=== PATIENT | female | born 1995 | race Caucasian/White ===

== ENCOUNTER → 2017-10-31 10:22 | Outpatient (CLI) | payer BC, SELFPAY ==
--- NOTE | 2017-10-31 10:28 | US_ITS ---
STUDY: ULTRASOUND BREAST - LEFT REASON FOR EXAM: Female, 21 years old. Palpable lump left breast. TECHNIQUE: Axial and longitudinal images of the LEFT breast were performed with a high resolution ultrasound transducer. COMPARISON: None. FINDINGS: LEFT Breast: The medial aspect of the left breast was examined by ultrasound. There is homogeneous fibroglandular tissue. No solid or cystic mass lesion is seen. US/Breast Limited Unilateral IMPRESSION: Unremarkable sonographic examination of the medial aspect of the left breast. ASSESSMENT CATEGORY: BIRADS Category 1: Negative. A letter regarding these results will be sent to the patient by the facility within 30 days. Electronically Signed: Boris Sierra MD at 14:09 EDT Tel [phone], Service support ,
--- NOTE | 2017-10-31 11:26 | BI_ITS ---
MAMMOGRAPHY - BILATERAL DIAGNOSTIC REASON FOR EXAM: Female, 21 years old. One-week history of left breast lump. PERTINENT HISTORY: Non-contributory. TECHNIQUE: Digital bilateral breast basim (3D mammographic acquisition) in the CC and MLO projections. 2-D mediolateral oblique (MLO) and craniocaudad (CC) views of both breasts were obtained. CAD: Full Field Digital Mammography with Computer Added Detection was performed. COMPARISON: Comparison is made with prior sonogram done earlier. FINDINGS: Breast Composition: There are scattered areas of fibroglandular density. There are no dominant masses or suspicious calcifications. No other significant abnormalities are identified. BI/DIAG MAMM W/CAD, BILAT IMPRESSION: Negative diagnostic mammogram. Yearly followup mammogram recommended. (A) ASSESSMENT CATEGORY: BIRADS Category 1: Negative. A letter regarding these results will be sent to the patient by the facility within 30 days. Approximately 10% of breast cancers are not detected by mammography. A normal mammogram should not delay biopsy of a clinically suspicious abnormality. Electronically Signed: Boris Sierra MD at 14:13 EDT Tel [phone], Service support ,
== END ==
LOC: US 10:25 → OPUS 10:27
PROVIDERS: Family Provider Internal Medicine; PCP Internal Medicine; Visit Provider Obstetrics & Gynecology
DX: N60.82 Other benign mammary dysplasias of left breast (principal)
CPT/HCPCS: 76642; 77062; 77066; G0279

== ENCOUNTER 2017-12-21 09:51 | Emergency (ER) | payer BC, SELFPAY ==
[2017-12-21 09:52] VITALS: BP 153/100; PULSE 108; RESP 18; TEMP 36.6; O2SAT 98; BMI 36.7
--- NOTE | 2017-12-21 10:33 | RAD_ITS ---
RAD/Foot min 3 Views IMPRESSION: Normal x-ray examination of the foot. Electronically Signed: Dm José MD at 11:21 EDT Tel , Service support ,
--- NOTE | 2017-12-21 11:30 | ED.VISSUMM ---
- ER Visit Summary Date of Service: 12/21/17 Chief Complaint: Left foot pain History of Present Illness: The patient is a 22 F who stumbled over her left foot while walking her dog yesterday. She has dorsal tenderness of her foot. She has no other injuries no ankle pain. Physical Examination: Otherwise unremarkable exam no ankle tenderness she has slight edema and tenderness over the dorsum of the foot. No proximal fifth metatarsal pain. Neurovascularly intact. Test Results: [X-ray of the foot is negative for fracture] Emergency Department Course and Treatment: [Patient will be discharged with reassurance. She wishes to take [id number] analgesia if she needs it, at this time she does not want.] Discharge stable condition Impression: [Left foot contusion] This note was generated with [employer] dictation software. It may contain incorrect words, spelling, and punctuation that were not noted in review of the chart prior to signing ED Disposition - Plan for ED Patient: Disposition: Home or Assisted Living Chief Complaint: Lower Extremity Injury Instructions: ED Contusion Foot Referrals: Suzy Jackson, [Primary Care Provider] - 1 Week if not improving
[2017-12-21 11:40] VITALS: BP 142/83; PULSE 88; RESP 16; O2SAT 98
== END 2017-12-21 11:43 | disposition home or self-care (01) ==
PROVIDERS: Emergency Provider Emergency Medicine; Family Provider Internal Medicine; PCP Internal Medicine
DX: S90.32XA Contusion of left foot, initial encounter (principal); W22.8XXA Striking against or struck by other objects, initial encounter; Y93.K1 Activity, walking an animal; Y92.9 Unspecified place or not applicable
CPT/HCPCS: 73630; 99282

== ENCOUNTER → 2018-01-14 13:14 | Outpatient (CLI) | payer BC, SELFPAY ==
[2018-01-21 11:59] LABS: HPV Reflexed? NOT INDICATED
== END ==
PROVIDERS: Family Provider Internal Medicine; PCP Internal Medicine; Visit Provider Obstetrics & Gynecology
DX: Z12.4 Encounter for screening for malignant neoplasm of cervix (principal)
CPT/HCPCS: 88175; G0145

== ENCOUNTER → 2018-05-20 12:57 | Outpatient (CLI) | payer BC, SELFPAY ==
[2018-05-20 13:11] LABS: Absolute Lymphocyte Count 1.31 X10^3/ul (0.83-4.51); Absolute Neutrophil Count 11.9 X10^3/uL (2.0-7.7); Basophil# 0.01 X10^3/uL; Basophil% 0.1 % (0-1); Hematocrit 42.1 % (37-47); Hemoglobin 13.3 g/dl (12.0-15.0); Lymphocyte # 1.31 X10^3/ul (4.0); Lymphocyte % 9.5 % (19-41); Mean Corp Hgb Conc 31.6 g/gl (32-36); Mean Corpuscular Hgb 25.8 pg (27.0-32.0); Mean Corpuscular Volume 81.7 fL (81-99); Mean Platelet Vol. 10.6 fl (6.2-12.0); Monocyte# 0.59 X10^3/uL; Monocyte% 4.3 % (0-10); Neutrophil # 11.86 X10^3/uL (2.7-7.7); Neutrophil % 85.8 % (47-70); Platelet Count 311 K/mm3 (150-450); RBC Distribution Width CV 13.7 % (11.6-14.6); RBC Distribution Width SD 41.1 fl (35.1-43.9); Red Blood Count 5.15 M/mm3 (4.2-5.4); White Blood Count 13.8 K/mm3 (4.4-11.0)
[2018-05-20 13:12] LABS: POSITIVE COUNT NO; POSITIVE DIFFERENTIAL NO; POSITIVE MORPHOLOGY NO
[2018-05-20 13:19] LABS: D-Dimer Quantitative (DVT/PE) < 0.27 FEU/ug/m (0.27-0.49)
[2018-05-20 13:53] LABS: ALB/GLOB Ratio 0.9 RATIO (0.9-2.4); AST(SGOT) 6 U/L (15-37); Alanine Aminotransfer ALT/SGPT 17 U/L (13-56); Albumin, Serum 3.7 g/dL (3.2-5.0); Alkaline Phosphatase 123 U/L (45-117); Anion Gap 11 (5-15); BUN 7 mg/dL (7-18); BUN/Creat Ratio 8.4 RATIO (10-20); Calcium,Total 9.3 mg/dL (8.5-10.1); Chloride 107 mmol/L (98-107); Creatinine, Serum 0.83 mg/dL (0.55-1.02); EST Glomerular Filtration Rate 89 mL/min (>60); Est Glom Filt Rate - Afr Amer 108 mL/min (>60); Globulin 4.1 g/dL (2.2-4.2); Glucose 118 mg/dL (74-106); Potassium 4.7 mmol/L (3.5-5.1); Protein, Total 7.8 g/dL (6.4-8.2); Sodium Level 139 mmol/L (136-145); Thyroid Stim Hormone (TSH) 0.41 uIU/mL (0.358-3.74)
== END ==
PROVIDERS: Family Provider Internal Medicine; PCP Internal Medicine; Visit Provider Internal Medicine
DX: R00.0 Tachycardia, unspecified (principal); R06.02 Shortness of breath
CPT/HCPCS: 80053; 84443; 85025; 85379

== ENCOUNTER → 2018-05-20 19:10 | Outpatient (CLI) | payer BC, SELFPAY ==
--- NOTE | 2018-05-20 19:15 | CT_ITS ---
STUDY: CTA CHEST REASON FOR EXAM: Female, 22 years old. Short of breath and tachycardia RADIATION DOSAGE (If Supplied By Facility): CTDIvol = ( 13.20 ) mGy, DLP = ( 716.30 ) mGycm TECHNIQUE: The examination was performed with the intravenous administration of 100ML ml of Isovue 370 contrast material. Post-processing of the angiographic images was performed, with multiplanar reformation and 3D reconstruction. Individualized dose optimization techniques were used for this CT. COMPARISON: None. FINDINGS: Normal enhancement of the main pulmonary artery and right and left pulmonary arteries. Normal enhancement of the bilateral peripheral pulmonary arteries. There is no demonstrated pulmonary embolism. Normal thoracic aorta and visualized great vessels. There is no demonstrated aortic dissection. Normal heart and pericardium. Normal mediastinum. Normal hilar regions. Normal visualized trachea and bronchi. The lungs are well expanded. Normal pulmonary parenchyma. Normal pleura. Normal chest wall structures. Normal osseous structures. Normal visualized upper abdomen. CT/CTA Chest W/WO Contrast IMPRESSION: Normal CTA chest examination, without a demonstrated pulmonary embolism or arterial dissection. Electronically Signed: Caden Marroquin MD at 19:39 EST , Service support ,
== END ==
PROVIDERS: Family Provider Internal Medicine; PCP Internal Medicine; Referring Provider Internal Medicine; Visit Provider Internal Medicine
DX: R06.02 Shortness of breath (principal); R00.0 Tachycardia, unspecified
CPT/HCPCS: 71275; Q9967

== ENCOUNTER → 2020-06-02 09:26 | Outpatient (CLI) | payer BC, SELFPAY ==
--- NOTE | 2020-06-02 09:29 | US_ITS ---
STUDY: ABDOMINAL ULTRASOUND - RIGHT UPPER QUADRANT REASON FOR VISIT: Female, 24 years old rug pain with touch and meals TECHNIQUE: Ultrasound evaluation of the right upper quadrant was performed with real-time and static ricketts-scale imaging. TECHNICAL QUALITY: Adequate. COMPARISON: None. FINDINGS: Liver: The liver measures 15.8 cm. There is normal echogenicity of the liver. The bile ducts are within normal limits. There is hepatic color flow. The direction of portal flow is hepatopetal. There is no demonstrated mass lesion. Gallbladder: Normal distended gallbladder. The gallbladder wall measures 2.5 mm. There is a negative sonographic Pritchard''s sign. There is no pericholecystic fluid. There are no gallstones. Common Bile Duct (C.B.D.): The common bile duct measures 2.9 mm. Pancreas: Normal size of the head, body and tail of the pancreas. There is normal echogenicity of the pancreas. There is no demonstrated pancreatic mass or cyst. Right Kidney: Normal size of the right kidney. The right kidney measures 11.8 cm x 5 cm x 5.1 cm. Normal renal cortex. The right cortex measures 1.5 cm. There is no demonstrated renal mass or cyst. There is no right hydronephrosis. US/Gallbladder IMPRESSION: Normal right upper quadrant ultrasound examination. Electronically Signed: Boris Sierra MD at 10:41 EST , Service support ,
[2020-06-02 10:45] LABS: Absolute Lymphocyte Count 2.61 X10^3/uL (0.83-4.51); Absolute Neutrophil Count 6.3 X10^3/uL (2.0-7.7); Basophil# 0.05 X10^3/uL; Basophil% 0.5 % (0-1); Eosinophil# 0.64 X10^3/uL; Eosinophils% 6.2 % (0-5); Hematocrit 39.9 % (37-47); Lymphocyte # 2.61 X10^3/ul (4.0); Lymphocyte % 25.3 % (19-41); Mean Corp Hgb Conc 30.1 g/dL (32-36); Mean Corpuscular Volume 79.8 fL (81-99); Mean Platelet Vol. 10.8 fl (6.2-12.0); Monocyte# 0.65 X10^3/uL; Monocyte% 6.3 % (0-10); NRBC Flagged by Analyzer 0 % (0-5); Neutrophil # 6.33 X10^3/uL (2.7-7.7); Neutrophil % 61.4 % (47-70); Platelet Count 341 K/mm3 (150-450); RBC Distribution Width CV 14.2 % (11.6-14.6); RBC Distribution Width SD 41.4 fl (35.1-43.9); White Blood Count 10.3 K/mm3 (4.4-11.0)
[2020-06-02 10:53] LABS: hCG Titer Quant., Serum < 1 mIU/mL (1-3)
[2020-06-02 10:56] LABS: ALB/GLOB Ratio 1.1 RATIO (0.9-2.4); AST(SGOT) 10 U/L (15-37); Alanine Aminotransfer ALT/SGPT 16 U/L (13-56); Albumin, Serum 3.6 g/dL (3.2-5.0); Alkaline Phosphatase 151 U/L (45-117); Amylase 34 U/L (25-115); Anion Gap 5 (5-15); BUN 6 mg/dL (7-18); BUN/Creat Ratio 9.1 RATIO (10-20); Calcium,Total 8.8 mg/dL (8.5-10.1); Chloride 106 mmol/L (98-107); Creatinine, Serum 0.66 mg/dL (0.55-1.02); EST Glomerular Filtration Rate 115 mL/min (>60); Est Glom Filt Rate - Afr Amer 139 mL/min (>60); Globulin 3.4 g/dL (2.2-4.2); Glucose 91 mg/dL (74-106); Lipase 88 U/L (73-393); Potassium 4.2 mmol/L (3.5-5.1); Sodium Level 138 mmol/L (136-145)
== END ==
PROVIDERS: PCP Internal Medicine; Referring Provider Internal Medicine; Visit Provider Internal Medicine
DX: R10.11 Right upper quadrant pain (principal); R11.0 Nausea
CPT/HCPCS: 76705; 80053; 82150; 83690; 84702; 85025

== ENCOUNTER → 2020-06-12 12:33 | Outpatient (CLI) | payer BC, SELFPAY ==
--- NOTE | 2020-06-12 12:35 | NM_ITS ---
CLINICAL: 24-year-old female with reported history of right upper quadrant abdominal pain and nausea. RADIONUCLIDE HEPATOBILIARY SCINTIGRAPHY COMPARISON: Abdominal ultrasound report 06/02/2020 FINDINGS: Following the intravenous administration of 5.2 mCi of 99m Tc Mebrofenin, hepatobiliary images reveal: 1. Relatively prompt and homogeneous radiopharmaceutical concentration is noted by a normal sized liver. No parenchymal defects are identified. 2. Gallbladder activity is identified at 10 minutes post radiopharmaceutical administration. 3. Small intestinal tract is observed at 45 minutes following tracer injection. 4. Washout of the radiopharmaceutical by the hepatic parenchyma appears qualitatively normal. Cholecystokinin (0.02 ug/kg) was administered intravenously over a 30-minute period. The post CCK gallbladder ejection fraction calculated at 20 minutes following Cholecystokinin administration was noted to be 95.0 % (normal greater than 35%). During 30 minutes of post CCK imaging, there is no scintigraphic evidence of reflux of the radiotracer into the common hepatic duct or significant refilling of the gallbladder. WA/Hepatobilliary Img w/Pharm Int IMPRESSION: 1. NORMAL 99m Tc Mebrofenin hepatobiliary imaging examination with Cholecystokinin. A. A gallbladder ejection fraction calculated to be greater than 35% following the administration of Cholecystokinin makes the probability of functional hepatobiliary disease (gallbladder and/or sphincter of Oddi dyskinesia) and/or organic hepatobiliary disease (chronic acalculous cholecystitis and/or cystic duct syndrome) to be low. (Brodie Huston et al, Journal of Nuclear Medicine 32:1695, 1991). Electronically Signed: Jesus Willard DO at 22:13 EST Tel , Service support ,
== END ==
PROVIDERS: PCP Internal Medicine; Referring Provider Internal Medicine; Visit Provider Internal Medicine
DX: R10.11 Right upper quadrant pain (principal)
CPT/HCPCS: 78227; A9537; J2805

== ENCOUNTER → 2021-01-15 16:03 | Outpatient (CLI) | payer OTHER, SELFPAY ==
--- NOTE | 2021-01-15 16:07 | RAD_ITS ---
STUDY: X-RAY CHEST REASON FOR EXAM: Female, 25 years old. Shortness of breath. TECHNIQUE: PA and lateral views of the chest. COMPARISON: 05/06/2017. FINDINGS: The lungs are clear and expanded. There is no demonstrated pleural abnormality. Normal size heart. Normal mediastinum and billy. Normal visualized pulmonary arteries. Normal visualized aortic arch and descending thoracic aorta. Normal visualized thoracic spine. Normal visualized ribs, clavicles, and shoulders. There is no demonstrated abnormality of the visualized soft tissue structures of the upper abdomen. RAD/Chest PA and Lateral IMPRESSION: No acute cardiopulmonary disease or interval change. Electronically Signed: Say Taveras DO at 16:21 EDT Tel [phone], Service support ,
== END ==
PROVIDERS: PCP Internal Medicine; Referring Provider Internal Medicine; Visit Provider Internal Medicine
DX: R06.02 Shortness of breath (principal)
CPT/HCPCS: 71046

== ENCOUNTER → 2021-08-30 | Outpatient (CLI) | payer OTHER, SELFPAY ==
[2021-09-05 20:18] LABS: HPV Reflexed? NOT INDICATED
== END | disposition home or self-care (01) ==
PROVIDERS: PCP Internal Medicine; Visit Provider Obstetrics & Gynecology
DX: Z12.4 Encounter for screening for malignant neoplasm of cervix (principal)
CPT/HCPCS: 88175; G0145

== ENCOUNTER → 2021-09-05 | Outpatient (CLI) | payer OTHER, SELFPAY ==
--- NOTE | 2021-09-05 08:16 | US_ITS ---
STUDY: ULTRASOUND OF THE FEMALE PELVIS - COMPLETE REASON FOR EXAM: Female, 25 years old. Pelvic pain -- PAINFUL PERIODS X 10 YEARS LMP: 08/28/2021. TECHNIQUE: Transabdominal and Transvaginal TECHNICAL QUALITY: Adequate. COMPARISON: Comparison is made with prior study dated 12/14/2016. FINDINGS: The uterus is anteverted and is in a midline position. The uterus measures 7.5 cm x 5.3 cm x 4 cm. There is a Nabothian cyst of the cervix. The endometrium measures 5 mm in thickness, and is hyperechoic. There is no demonstrated endometrial mass. 2 uterine fibroids are seen. The larger fibroid measures 2 cm x 2 cm x 1.5 cm. I.U.D. - The patient does not have an I.U.D. The right ovary is visualized. The right ovary measures 3.1 cm x 4.2 cm x 1.9 cm. There is no right ovarian cyst or ovarian mass. There is no visualized right adnexal mass or complex lesion. There is normal arterial and normal venous vascularity. The left ovary is visualized. The left ovary measures 4.1 cm x 4.5 cm x 1.6 cm. A dominant follicle is seen within the left ovary measuring 1.5 cm x 1.3 cm x 1.2 cm. There is no visualized left adnexal mass or complex lesion. There is normal arterial and normal venous vascularity. There is no fluid in the cul-de-sac. The pre void volume of the bladder was 780 ml. US/Pelvic (Non ) IMPRESSION: Fibroid uterus. Dominant follicle in the left ovary measuring 1.57 x 1.3 cm x 1.2 cm. Electronically Signed: Boris Sierra MD at 10:29 EDT ,
--- NOTE | 2021-09-05 08:16 | US_ITS ---
STUDY: ULTRASOUND OF THE FEMALE PELVIS - COMPLETE REASON FOR EXAM: Female, 25 years old. Pelvic pain -- PAINFUL PERIODS X 10 YEARS LMP: 08/28/2021. TECHNIQUE: Transabdominal and Transvaginal TECHNICAL QUALITY: Adequate. COMPARISON: Comparison is made with prior study dated 12/14/2016. FINDINGS: The uterus is anteverted and is in a midline position. The uterus measures 7.5 cm x 5.3 cm x 4 cm. There is a Nabothian cyst of the cervix. The endometrium measures 5 mm in thickness, and is hyperechoic. There is no demonstrated endometrial mass. 2 uterine fibroids are seen. The larger fibroid measures 2 cm x 2 cm x 1.5 cm. I.U.D. - The patient does not have an I.U.D. The right ovary is visualized. The right ovary measures 3.1 cm x 4.2 cm x 1.9 cm. There is no right ovarian cyst or ovarian mass. There is no visualized right adnexal mass or complex lesion. There is normal arterial and normal venous vascularity. The left ovary is visualized. The left ovary measures 4.1 cm x 4.5 cm x 1.6 cm. A dominant follicle is seen within the left ovary measuring 1.5 cm x 1.3 cm x 1.2 cm. There is no visualized left adnexal mass or complex lesion. There is normal arterial and normal venous vascularity. There is no fluid in the cul-de-sac. The pre void volume of the bladder was 780 ml. US/Transvaginal Non- IMPRESSION: Fibroid uterus. Dominant follicle in the left ovary measuring 1.57 x 1.3 cm x 1.2 cm. Electronically Signed: Boris Sierra MD at 10:29 EDT ,
== END | disposition home or self-care (01) ==
PROVIDERS: PCP Internal Medicine; Visit Provider Obstetrics & Gynecology
DX: R10.2 Pelvic and perineal pain (principal); Z87.42 Personal history of other diseases of the female genital tract
CPT/HCPCS: 76830; 76856; 88175; G0145

== ENCOUNTER → 2022-01-28 | Outpatient (CLI) | payer OTHER, SELFPAY ==
[2022-01-28 11:25] LABS: hCG Titer Quant., Serum 1042 mIU/mL (1-3)
== END | disposition home or self-care (01) ==
LOC: PAVLAB 09:51
PROVIDERS: PCP Internal Medicine; Referring Provider Registered Nurse; Visit Provider Registered Nurse
DX: N92.0 Excessive and frequent menstruation with regular cycle (principal)
CPT/HCPCS: 36415; 84702; 86850; 86900; 86901

== ENCOUNTER → 2022-01-30 | Outpatient (CLI) | payer OTHER, SELFPAY ==
[2022-01-30 09:01] LABS: hCG Titer Quant., Serum 1968 mIU/mL (1-3)
== END | disposition home or self-care (01) ==
LOC: LAB 07:03
PROVIDERS: Registered Nurse; PCP Internal Medicine; Visit Provider Obstetrics & Gynecology
DX: N92.0 Excessive and frequent menstruation with regular cycle (principal)
CPT/HCPCS: 36415; 84702

== ENCOUNTER → 2022-03-04 | Outpatient (CLI) | payer OTHER, SELFPAY ==
[2022-03-04 16:55] LABS: Amphetamine Urine VISTA NEGATIVE (<1000 ng/mL); Barbiturate Urine VISTA NEGATIVE (< 200 ng/mL); Benzodiazepine Urine VISTA NEGATIVE (< 200 ng/mL); Cocaine Urine VISTA NEGATIVE (< 300 ng/mL); Ecstacy Urine VISTA NEGATIVE (< 500 ng/mL); Methadone Urine VISTA NEGATIVE (< 300 ng/mL); PCP Urine VISTA NEGATIVE (< 25 ng/mL); THC Urine VISTA NEGATIVE (< 50 ng/mL); Vista UDS pH Range 5
[2022-03-06 22:07] LABS: Chlamydia By Nucleic Acid AMP Negative (Negative)
[2022-03-07 15:48] LABS: Gonococcus By Nucleic Acid AMP Negative (Negative)
[2022-03-11 17:37] LABS: HPV Reflexed? NOT INDICATED
== END | disposition home or self-care (01) ==
PROVIDERS: PCP Internal Medicine; Visit Provider Obstetrics & Gynecology
DX: O99.210 Obesity complicating pregnancy, unspecified trimester (principal); E66.9 Obesity, unspecified
CPT/HCPCS: 80307; 87086; 87088; 87491; 87591; 88175; G0145

== ENCOUNTER → 2022-04-04 | Outpatient (CLI) | payer OTHER, SELFPAY ==
[2022-04-04 07:59] LABS: Absolute Lymphocyte Count 1.79 X10^3/uL (0.83-4.51); Absolute Neutrophil Count 6.2 X10^3/uL (2.0-7.7); Basophil# 0.02 X10^3/uL; Basophil% 0.2 % (0-1); Eosinophil# 0.34 X10^3/uL; Eosinophils% 3.9 % (0-5); Hematocrit 35.3 % (37-47); Hemoglobin 11.3 g/dL (12.0-15.0); Lymphocyte # 1.79 X10^3/ul (0.83-4.51); Lymphocyte % 20.4 % (19-41); Mean Corpuscular Hgb 26.4 pg (27.0-32.0); Mean Corpuscular Volume 82.5 fL (81-99); Mean Platelet Vol. 10.3 fl (6.2-12.0); Monocyte% 4.6 % (0-10); NRBC Flagged by Analyzer 0 % (0-5); Neutrophil # 6.21 X10^3/uL (2.7-7.7); Neutrophil % 70.7 % (47-70); Platelet Count 218 K/mm3 (150-450); RBC Distribution Width CV 13.8 % (11.6-14.6); RBC Distribution Width SD 40.9 fl (35.1-43.9); Red Blood Count 4.28 M/mm3 (4.2-5.4); White Blood Count 8.8 K/mm3 (4.4-11.0)
[2022-04-04 08:18] LABS: Glucose Challenge Gest 1H 50g 164 mg/dL (70-140)
[2022-04-04 09:02] LABS: HIV - WCH Non-Reactive (Nonreactive); Hepatitis B Surface Antigen Non-Reactive (Nonreactive); Hepatitis C Antibody Non-Reactive (Nonreactive); Rubella IgG Reactive (Nonreactive); Syphilis Antibodies Non-reactive
[2022-04-04 13:50] LABS: NATERA MAILED SPECIMEN
== END | disposition home or self-care (01) ==
PROVIDERS: PCP Internal Medicine; Referring Provider Obstetrics & Gynecology; Visit Provider Obstetrics & Gynecology
DX: Z31.430 Encounter of female for testing for genetic disease carrier status for procreative management (principal); Z34.82 Encounter for supervision of other normal pregnancy, second trimester
CPT/HCPCS: 36415; 82950; 85025; 86703; 86762; 86780; 86803; 86850; 86900; 86901; 87340

== ENCOUNTER → 2022-04-08 | Outpatient (CLI) | payer OTHER, SELFPAY ==
[2022-04-08 08:00] LABS: Glucose GTT-Gestation. Fasting 91 mg/dL (<105)
[2022-04-08 08:39] LABS: Glucose GTT-Gestational 1 Hr 143 mg/dL (<190)
[2022-04-08 09:47] LABS: Glucose GTT-Gestational 2 Hr 130 mg/dL (<165)
[2022-04-08 10:48] LABS: Glucose GTT-Gestational 3 Hr 104 L (<145)
== END | disposition home or self-care (01) ==
LOC: LAB 06:51
PROVIDERS: PCP Internal Medicine; Referring Provider Obstetrics & Gynecology; Visit Provider Obstetrics & Gynecology
DX: Z13.1 Encounter for screening for diabetes mellitus (principal)
CPT/HCPCS: 36415; 82951; 82952

== ENCOUNTER → 2022-05-09 | Outpatient (CLI) | payer OTHER, SELFPAY ==
--- NOTE | 2022-05-09 07:50 | US_ITS ---
STUDY: SECOND AND THIRD TRIMESTER OBSTETRICAL ULTRASOUND REASON FOR EXAM: Female, 26 years old Anatomy US LMP: 12/27/2021 TECHNIQUE: Transabdominal and Transvaginal TECHNICAL QUALITY: Adequate. PRIOR ULTRASOUND: None. FINDINGS: There is a single intrauterine fetus. The fetus is in an transverse lie with the head on the maternal left side. There is demonstrated cardiac activity with a heart rate of 155 bpm. There is a normal amniotic fluid volume. The largest amniotic fluid pocket measures 3.1 cm x 8.5 cm. The amniotic fluid index (MEAGAN) is within normal limits. The placenta is fundal in location. There are Grade 1 placental changes. The cervix measures 6 cm in length. The bilateral adnexal regions are normal. BIOMETRY: BPD: 4.5 cm: 19 weeks, 4 days HC: 16.3 cm: 19 weeks, 0 days AC: 13.6 on: 19 weeks, 0 days FL: 2.9 cm: 19 weeks, 0 days CI: 79% FL/BPD: 65% FL/HC: FL/AC: 22% HC/AC: 1.2 age by current US: 19 weeks, 2 days. MIKE by current US: 10/01/2022. Estimated weight: 274 grams, +/- 41 grams, 52 %. Age by LMP: 19 weeks, 0 days. MIKE by LMP: 10/03/2022. ANATOMY: Gender: Male Cranium: Normal lateral ventricles. Normal choroid plexus. Normal cerebellum. Normal cisterna magna. Normal face, nose and lips. Chest: Normal 4-chamber heart. Abdomen/Pelvis: Normal diaphragm. Normal stomach. Normal abdominal wall. Normal cord insertion. Normal 3 vessel cord. Normal kidneys. Normal bladder. Spine: Normal cervical spine. Normal thoracic spine. Normal lumbar spine. Normal sacrum. Extremities: Normal bilateral upper extremities. Normal bilateral lower extremities. IMPRESSION: Single live intrauterine gestation with a mean gestational age of 19 weeks and 2 days. Electronically Signed: Boris Sierra MD at 11:00 EST , STUDY: FIRST TRIMESTER OBSTETRICAL ULTRASOUND REASON FOR EXAM: Female, 26 years old . Cervical length. LMP: 12/27/2021 TECHNIQUE: Transvaginal TECHNICAL QUALITY: Adequate. PRIOR ULTRASOUND: None. FINDINGS: The cervical length measures 6 cm. US/OB Anatomy Scan IMPRESSION: Cervical length measures 6 cm. Electronically Signed: Boris Sierra MD at 11:00 EST ,
== END | disposition home or self-care (01) ==
LOC: OPUS 07:48
PROVIDERS: PCP Internal Medicine; Referring Provider Nurse Practitioner Women's Health; Visit Provider Nurse Practitioner Women's Health
DX: Z34.92 Encounter for supervision of normal pregnancy, unspecified, second trimester (principal); Z3A.19 19 weeks gestation of pregnancy
CPT/HCPCS: 76805; 76817

== ENCOUNTER → 2022-07-05 | Outpatient (CLI) | payer OTHER, SELFPAY ==
[2022-07-05 08:09] LABS: Absolute Lymphocyte Count 1.83 X10^3/uL (0.83-4.51); Absolute Neutrophil Count 7.1 X10^3/uL (2.0-7.7); Basophil# 0.03 X10^3/uL; Basophil% 0.3 % (0-1); Eosinophil# 0.43 X10^3/uL; Eosinophils% 4.4 % (0-5); Hematocrit 32.6 % (37-47); Hemoglobin 10.5 g/dL (12.0-15.0); Lymphocyte # 1.83 X10^3/ul (0.83-4.51); Lymphocyte % 18.6 % (19-41); Mean Corp Hgb Conc 32.2 g/dL (32-36); Mean Corpuscular Hgb 27.3 pg (27.0-32.0); Mean Corpuscular Volume 84.7 fL (81-99); Mean Platelet Vol. 11.2 fl (6.2-12.0); Monocyte# 0.42 X10^3/uL; Monocyte% 4.3 % (0-10); NRBC Flagged by Analyzer 0 % (0-5); Neutrophil # 7.08 X10^3/uL (2.7-7.7); Neutrophil % 71.9 % (47-70); Platelet Count 224 K/mm3 (150-450); RBC Distribution Width CV 13.4 % (11.6-14.6); RBC Distribution Width SD 41.4 fl (35.1-43.9); Red Blood Count 3.85 M/mm3 (4.2-5.4); White Blood Count 9.8 K/mm3 (4.4-11.0)
[2022-07-05 08:21] LABS: Glucose Challenge Gest 1H 50g 176 mg/dL (70-140)
[2022-07-05 08:55] LABS: HIV - WCH Non-Reactive (Nonreactive); Syphilis Antibodies Non-reactive
== END | disposition home or self-care (01) ==
LOC: LAB 07:31
PROVIDERS: PCP Internal Medicine; Referring Provider Obstetrics & Gynecology; Visit Provider Obstetrics & Gynecology
DX: O09.90 Supervision of high risk pregnancy, unspecified, unspecified trimester (principal)
CPT/HCPCS: 36415; 82950; 85025; 86703; 86780

== ENCOUNTER 2022-07-23 15:00 | Outpatient (CLI) | payer OTHER, SELFPAY ==
[2022-07-23] VITALS (12 sets, daily range): BP systolic 134–183; BP diastolic 72–103; PULSE 71–84; TEMP 36.5; O2SAT 99; BMI 41.8
[2022-07-23 15:53] LABS: Hematocrit 31.9 % (37-47); Hemoglobin 10.4 g/dL (12.0-15.0); Mean Corp Hgb Conc 32.6 g/dL (32-36); Mean Corpuscular Hgb 27.2 pg (27.0-32.0); Mean Corpuscular Volume 83.5 fL (81-99); Mean Platelet Vol. 11.7 fl (6.2-12.0); Platelet Count 220 K/mm3 (150-450); RBC Distribution Width CV 14.1 % (11.6-14.6); RBC Distribution Width SD 41.8 fl (35.1-43.9); Red Blood Count 3.82 M/mm3 (4.2-5.4); White Blood Count 10.2 K/mm3 (4.4-11.0)
[2022-07-23 16:08] LABS: AST(SGOT) 12 U/L (15-37); Alanine Aminotransfer ALT/SGPT 12 U/L (13-56); Creatinine, Serum 0.52 mg/dL (0.55-1.02); EST Glomerular Filtration Rate 147 mL/min (>60); Est Glom Filt Rate - Afr Amer 178 mL/min (>60); Estimated Creatinine Clearance 139.09 ml/min; Uric Acid 3.3 mg/dL (2.6-6.0)
--- NOTE | 2022-07-23 16:39 | OB.TRI.PN_ITS ---
Progress Notes Date of Service: 07/23/22 Progress Note: Patient presents for triage evaluation secondary to elevated blood pressure FHT: 140 Moderate variability reactive no decelerations category I tracing [place]: no regular Contractions Assessment and plan: ghtn Reactive NST labs WNL growth US ordered plan home bp monitoring, reassuring maternal and status patient discharged to home to follow-up in office. See problem list details for additional plan information. Laboratory Studies: Laboratory Tests 07/23/22 07/23/22 Range/Units 15:35 15:35 WBC 10.2 (4.4-11.0) K/mm3 RBC 3.82 L (4.2-5.4) M/mm3 Hgb 10.4 L (12.0-15.0) g/dL Hct 31.9 L (37-47) % MCV 83.5 (81-99) fL MCH 27.2 (27.0-32.0) pg MCHC 32.6 (32-36) g/dL RDW Std Deviation 41.8 (35.1-43.9) fl RDW Coeff of Kyler 14.1 (11.6-14.6) % Plt Count 220 (150-450) K/mm3 MPV 11.7 (6.2-12.0) fl Creatinine 0.52 L (0.55-1.02) mg/dL Estim Creat Clear Calc 139.09 ml/min Est GFR (MDRD) Af Amer 178 (>60) mL/min Est GFR (MDRD) Non-Af 147 (>60) mL/min Uric Acid 3.3 (2.6-6.0) mg/dL AST 12 L (15-37) U/L ALT 12 L (13-56) U/L Charges/Coding Procedures Urinary/Genital [id number]: [id number] non-stress test Interp Assessment & Plan (1) Gestational hypertension: COMMENT: growth us, steroids 07/23 and 07/24. procardia started. nl labs. plan 2x weekly nsts, weekly yuliana, and weekly labs., home bp monitoring
[2022-07-23 16:40] LABS: Protein, Urine (Random) 9.4 mg/dL (<11.9); Protein:Creat Ratio 193 mg/g CRE (0-200)
--- NOTE | 2022-07-23 16:56 | US_ITS ---
STUDY: SECOND AND THIRD TRIMESTER OBSTETRICAL ULTRASOUND - LIMITED REASON FOR EXAM: Female, 26 years old. Growth. LMP: December 27, 2021 PRIOR ULTRASOUND: May 09, 2022. TECHNIQUE: Transabdominal TECHNICAL QUALITY: Adequate. FINDINGS: There is a single intrauterine fetus. The fetus is in a breech presentation. There is demonstrated cardiac activity with a heart rate of 145 bpm. There is a normal amniotic fluid volume. The largest amniotic fluid pocket measures 4.07 cm. The amniotic fluid index (MEAGAN) is 15.11 cm. The placenta is fundal in location. There are Grade 1 placental changes. The cervix measures 4.1 cm cm in length. BIOMETRY: BPD: 7.63 cm: 30 weeks, 4 days HC: 28.73 cm: 31 weeks, 4 days AC: 27.82 cm: 31 weeks, 6 days FL: 5.38 cm: 28 weeks, 3 days Age by LMP: 30 weeks, 0 days. MIKE by LMP: October 01, 2022. age by prior US: 30 weeks, 0 days. MIKE by prior US: October 01, 2022. age by current US: 30 weeks, 3 days. MIKE by current US: September 28, 2022. Estimated weight: 1627 grams, +/- 244 grams, 63 percentile. US/OB Limited With Biometrics IMPRESSION: 1. Live single intrauterine at 30 weeks, 3 days. MIKE is September 28, 2022. There is adequate interval growth since prior ultrasound. 2. EFW 1627 g. 3. MEAGAN of 15.11 cm. 4. Fundal grade 1 placenta. 5. Breech presentation. Electronically Signed: Say Taveras DO at 19:35 EDT ,
[2022-07-23] MEDS: NIFEdipine 30 MG Tablet PO (17:22)
[2022-07-23] MEDS: Betamethasone/Betamethasone 30 MG/5 ML Vial 12 MG IM (17:23)
== END 2022-07-23 18:04 | disposition home or self-care (01) ==
LOC: WPOUT 15:05 → WP 15:13
PROVIDERS: PCP Internal Medicine; Referring Provider Obstetrics & Gynecology; Visit Provider Obstetrics & Gynecology
DX: O13.9 Gestational [pregnancy-induced] hypertension without significant proteinuria, unspecified trimester (principal); Z3A.00 Weeks of gestation of pregnancy not specified
CPT/HCPCS: 36415; 59025; 59050; 76816; 82565; 82570; 84156; 84450; 84460; 84550; 85027; 99221; G0378; J0702

== ENCOUNTER 2022-07-24 16:50 | Outpatient (CLI) | payer OTHER, SELFPAY ==
[2022-07-24] VITALS (7 sets, daily range): BP systolic 140–156; BP diastolic 71–94; PULSE 72–84
[2022-07-24] MEDS: Betamethasone/Betamethasone 30 MG/5 ML Vial 12 MG IM (18:03)
== END 2022-07-24 19:00 | disposition home or self-care (01) ==
LOC: WPOUT 16:54 → WP 16:55
PROVIDERS: PCP Internal Medicine; Referring Provider Advanced Practice Midwife; Visit Provider Advanced Practice Midwife
DX: O13.9 Gestational [pregnancy-induced] hypertension without significant proteinuria, unspecified trimester (principal); Z3A.00 Weeks of gestation of pregnancy not specified
CPT/HCPCS: 96372; 99221; G0378; J0702

== ENCOUNTER → 2022-08-02 | Outpatient (CLI) | payer OTHER, SELFPAY ==
--- NOTE | 2022-08-02 08:19 | US_ITS ---
STUDY: SECOND AND THIRD TRIMESTER OBSTETRICAL ULTRASOUND - LIMITED REASON FOR EXAM: Female, 26 years old MEAGAN -- weekly beginning week of 07/30. LMP: 12/25/2021 PRIOR ULTRASOUND: 07/23/2022 TECHNIQUE: Transabdominal TECHNICAL QUALITY: Adequate. FINDINGS: There is a single intrauterine fetus. The fetus is in a transverse lie with the head on the maternal right side. There is demonstrated cardiac activity with a heart rate of 147 bpm. There is a normal amniotic fluid volume. The largest amniotic fluid pocket measures 5.64 cm. The amniotic fluid index (MEAGAN) is 15.3 cm. On the previous study, largest pocket measured 4.07 cm and MEAGAN measures 15.11 cm. The placenta is posterior/fundal, not low-lying There are Grade 1 placental changes. The cervix was not measured age by prior US: 31 weeks, 6 days. MIKE by prior US: 09/28/2022. age by current US: 31 weeks, 3 days. MIKE by current US: 10/01/2022. US/OB Limited (No Biometrics) IMPRESSION: Single live intrauterine at 31 weeks 3 days by current ultrasound with MIKE of 10/01/2022. Heart rate 147 bpm. On current study, largest pocket of fluid measures 5.64 cm with a total MEAGAN of 15.3 cm. Electronically Signed: Rico Lovett MD at 8:49 EDT ,
== END | disposition home or self-care (01) ==
LOC: US 08:19
PROVIDERS: PCP Internal Medicine; Referring Provider Obstetrics & Gynecology; Visit Provider Obstetrics & Gynecology
DX: O13.9 Gestational [pregnancy-induced] hypertension without significant proteinuria, unspecified trimester (principal)
CPT/HCPCS: 76815

== ENCOUNTER → 2022-08-05 | Outpatient (CLI) | payer OTHER, SELFPAY ==
[2022-08-05 17:05] LABS: Absolute Lymphocyte Count 2.33 X10^3/uL (0.83-4.51); Absolute Neutrophil Count 7.6 X10^3/uL (2.0-7.7); Basophil# 0.02 X10^3/uL; Basophil% 0.2 % (0-1); Eosinophil# 0.24 X10^3/uL; Eosinophils% 2.2 % (0-5); Hematocrit 33.1 % (37-47); Hemoglobin 10.6 g/dL (12.0-15.0); Lymphocyte # 2.33 X10^3/ul (0.83-4.51); Lymphocyte % 21.4 % (19-41); Mean Corpuscular Hgb 27.3 pg (27.0-32.0); Mean Corpuscular Volume 85.3 fL (81-99); Mean Platelet Vol. 11.1 fl (6.2-12.0); Monocyte# 0.71 X10^3/uL; Monocyte% 6.5 % (0-10); NRBC Flagged by Analyzer 0 % (0-5); Neutrophil # 7.55 X10^3/uL (2.7-7.7); Neutrophil % 69.2 % (47-70); Platelet Count 208 K/mm3 (150-450); RBC Distribution Width CV 13.6 % (11.6-14.6); Red Blood Count 3.88 M/mm3 (4.2-5.4); White Blood Count 10.9 K/mm3 (4.4-11.0)
[2022-08-05 18:06] LABS: ALB/GLOB Ratio 0.6 RATIO (0.9-2.4); AST(SGOT) 11 U/L (15-37); Alanine Aminotransfer ALT/SGPT 14 U/L (13-56); Albumin, Serum 2.5 g/dL (3.2-5.0); Alkaline Phosphatase 114 U/L (45-117); Anion Gap 5 (5-15); BUN 5 mg/dL (7-18); Calcium,Total 8.9 mg/dL (8.5-10.1); Chloride 106 mmol/L (98-107); Creatinine, Serum 0.56 mg/dL (0.55-1.02); EST Glomerular Filtration Rate 138 mL/min (>60); Est Glom Filt Rate - Afr Amer 166 mL/min (>60); Globulin 4.1 g/dL (2.2-4.2); Glucose 88 mg/dL (74-106); Potassium 3.6 mmol/L (3.5-5.1); Protein, Total 6.6 g/dL (6.4-8.2); Sodium Level 136 mmol/L (136-145)
== END | disposition home or self-care (01) ==
LOC: LAB 16:50
PROVIDERS: PCP Internal Medicine; Referring Provider Obstetrics & Gynecology; Visit Provider Obstetrics & Gynecology
DX: O14.90 Unspecified pre-eclampsia, unspecified trimester (principal)
CPT/HCPCS: 36415; 80053; 85025

== ENCOUNTER → 2022-08-09 | Outpatient (CLI) | payer OTHER, SELFPAY ==
--- NOTE | 2022-08-09 16:59 | US_ITS ---
INDICATION: MEAGAN EXAMINATION: US OB Limited 1 Or More Fetus TECHNIQUE: Limited transabdominal pelvic obstetric ultrasound was performed. COMPARISON: Obstetric ultrasound from 08/02/2022 FINDINGS: Single live intrauterine fetus in breech presentation with heart rate 152 bpm. Grade 2 fundal placenta appears intact with no placenta previa. Closed cervix measures 4.2 cm length. Amniotic fluid index within normal limits, 16.1 cm. Maternal adnexa not imaged. biometrics and anatomic survey not performed. EGA of 32 weeks 6 days based on prior ultrasound with MIKE of 09/28/2022. EGA of 32 weeks 3 days based on LMP of 12/25/2021. US/OB Limited (No Biometrics) IMPRESSION: Single live intrauterine with normal MEAGAN and no acute abnormality. Electronically Signed: Shemar Tong MD at 4:21 EDT ,
== END | disposition home or self-care (01) ==
LOC: US 16:57
PROVIDERS: PCP Internal Medicine; Referring Provider Obstetrics & Gynecology; Visit Provider Obstetrics & Gynecology
DX: O13.9 Gestational [pregnancy-induced] hypertension without significant proteinuria, unspecified trimester (principal)
CPT/HCPCS: 76815

== ENCOUNTER → 2022-08-13 | Outpatient (CLI) | payer OTHER, SELFPAY ==
[2022-08-13 16:07] LABS: Absolute Lymphocyte Count 2.17 X10^3/uL (0.83-4.51); Basophil# 0.02 X10^3/uL; Basophil% 0.2 % (0-1); Eosinophil# 0.45 X10^3/uL; Hematocrit 33.8 % (37-47); Hemoglobin 10.8 g/dL (12.0-15.0); Lymphocyte # 2.17 X10^3/ul (0.83-4.51); Lymphocyte % 19.2 % (19-41); Mean Corpuscular Hgb 27.4 pg (27.0-32.0); Mean Corpuscular Volume 85.8 fL (81-99); Mean Platelet Vol. 11.6 fl (6.2-12.0); Monocyte# 0.61 X10^3/uL; Monocyte% 5.4 % (0-10); NRBC Flagged by Analyzer 0 % (0-5); Neutrophil # 7.99 X10^3/uL (2.7-7.7); Neutrophil % 70.7 % (47-70); Platelet Count 218 K/mm3 (150-450); RBC Distribution Width CV 13.9 % (11.6-14.6); RBC Distribution Width SD 43.1 fl (35.1-43.9); Red Blood Count 3.94 M/mm3 (4.2-5.4); White Blood Count 11.3 K/mm3 (4.4-11.0)
[2022-08-13 16:26] LABS: ALB/GLOB Ratio 0.6 RATIO (0.9-2.4); AST(SGOT) 7 U/L (15-37); Alanine Aminotransfer ALT/SGPT 11 U/L (13-56); Albumin, Serum 2.4 g/dL (3.2-5.0); Alkaline Phosphatase 126 U/L (45-117); Anion Gap 6 (5-15); BUN 4 mg/dL (7-18); BUN/Creat Ratio 5.8 RATIO (10-20); Calcium,Total 8.8 mg/dL (8.5-10.1); Chloride 107 mmol/L (98-107); Creatinine, Serum 0.69 mg/dL (0.55-1.02); EST Glomerular Filtration Rate 108 mL/min (>60); Est Glom Filt Rate - Afr Amer 130 mL/min (>60); Globulin 4.1 g/dL (2.2-4.2); Glucose 99 mg/dL (74-106); Potassium 3.2 mmol/L (3.5-5.1); Protein, Total 6.5 g/dL (6.4-8.2); Sodium Level 137 mmol/L (136-145)
== END | disposition home or self-care (01) ==
LOC: PAVLAB 15:39
PROVIDERS: PCP Internal Medicine; Referring Provider Obstetrics & Gynecology; Visit Provider Obstetrics & Gynecology
DX: O13.9 Gestational [pregnancy-induced] hypertension without significant proteinuria, unspecified trimester (principal)
CPT/HCPCS: 36415; 80053; 85025

== ENCOUNTER → 2022-08-16 | Outpatient (CLI) | payer OTHER, SELFPAY ==
--- NOTE | 2022-08-16 16:59 | US_ITS ---
STUDY: SECOND AND THIRD TRIMESTER OBSTETRICAL ULTRASOUND - LIMITED REASON FOR EXAM: Female, 26 years old MEAGAN LMP: PRIOR ULTRASOUND: None. TECHNIQUE: TECHNICAL QUALITY: Adequate. FINDINGS: There is a single intrauterine fetus. There is demonstrated cardiac activity with a heart rate of 144 bpm. There is a normal amniotic fluid volume. The largest amniotic fluid pocket measures 4.6 cm. The amniotic fluid index (MEAGAN) is 15.7 cm. The cervix measures 3.0 cm in length. Placenta is fundal. US/OB Limited (No Biometrics) IMPRESSION: Single viable intrauterine gestation. MEAGAN 15.79 cm. Electronically Signed: Shemar Cohen MD, [place]AL[place] at 18:07 EDT ,
== END | disposition home or self-care (01) ==
LOC: US 16:58
PROVIDERS: PCP Internal Medicine; Visit Provider Obstetrics & Gynecology
DX: O13.9 Gestational [pregnancy-induced] hypertension without significant proteinuria, unspecified trimester (principal)
CPT/HCPCS: 76815

== ENCOUNTER → 2022-08-22 | Outpatient (CLI) | payer OTHER, SELFPAY ==
[2022-08-22 14:24] LABS: Absolute Lymphocyte Count 2.34 X10^3/uL (0.83-4.51); Absolute Neutrophil Count 7.4 X10^3/uL (2.0-7.7); Basophil# 0.03 X10^3/uL; Basophil% 0.3 % (0-1); Eosinophil# 0.42 X10^3/uL; Eosinophils% 3.8 % (0-5); Hematocrit 32.6 % (37-47); Hemoglobin 10.7 g/dL (12.0-15.0); Lymphocyte # 2.34 X10^3/ul (0.83-4.51); Lymphocyte % 21.3 % (19-41); Mean Corp Hgb Conc 32.8 g/dL (32-36); Mean Corpuscular Hgb 27.2 pg (27.0-32.0); Mean Platelet Vol. 11.1 fl (6.2-12.0); Monocyte# 0.68 X10^3/uL; Monocyte% 6.2 % (0-10); NRBC Flagged by Analyzer 0 % (0-5); Neutrophil # 7.44 X10^3/uL (2.7-7.7); Neutrophil % 67.9 % (47-70); Platelet Count 234 K/mm3 (150-450); RBC Distribution Width SD 41.6 fl (35.1-43.9); Red Blood Count 3.93 M/mm3 (4.2-5.4)
[2022-08-22 14:28] LABS: ALB/GLOB Ratio 0.6 RATIO (0.9-2.4); AST(SGOT) 7 U/L (15-37); Alanine Aminotransfer ALT/SGPT 12 U/L (13-56); Albumin, Serum 2.5 g/dL (3.2-5.0); Alkaline Phosphatase 121 U/L (45-117); Anion Gap 9 (5-15); BUN 3 mg/dL (7-18); BUN/Creat Ratio 5.7 RATIO (10-20); Calcium,Total 8.8 mg/dL (8.5-10.1); Chloride 107 mmol/L (98-107); Creatinine, Serum 0.52 mg/dL (0.55-1.02); EST Glomerular Filtration Rate 147 mL/min (>60); Est Glom Filt Rate - Afr Amer 178 mL/min (>60); Globulin 3.9 g/dL (2.2-4.2); Glucose 73 mg/dL (74-106); Potassium 3.4 mmol/L (3.5-5.1); Protein, Total 6.4 g/dL (6.4-8.2); Sodium Level 138 mmol/L (136-145)
[2022-08-22 17:36] LABS: Protein, Urine (Random) < 6.0 mg/dL (<11.9)
== END | disposition home or self-care (01) ==
PROVIDERS: PCP Internal Medicine; Referring Provider Obstetrics & Gynecology; Visit Provider Obstetrics & Gynecology
DX: O13.9 Gestational [pregnancy-induced] hypertension without significant proteinuria, unspecified trimester (principal)
CPT/HCPCS: 36415; 80053; 82570; 84156; 85025

== ENCOUNTER → 2022-08-23 | Outpatient (CLI) | payer OTHER, SELFPAY ==
--- NOTE | 2022-08-23 16:54 | US_ITS ---
STUDY: SECOND AND THIRD TRIMESTER OBSTETRICAL ULTRASOUND REASON FOR EXAM: Female, 26 years old growth -- 4 Weeks TECHNIQUE: Transabdominal PRIOR ULTRASOUND: None. FINDINGS: There is a single intrauterine fetus. The fetus is in an transverse lie with the head on the maternal left side. There is demonstrated cardiac activity with a heart rate of 145 bpm. There is a normal amniotic fluid volume. The largest amniotic fluid pocket measures 6.3 cm. The amniotic fluid index (MEAGAN) is 17.4 cm. The placenta is fundal. There are Grade 1 placental changes. The cervix measures 4.4 cm in length. The bilateral adnexal regions are normal. BPD: 8.7 cm = 35 weeks, 2 day(s) HC: 31.1 cm = 34 weeks, 5 day(s) AC: 30.8 cm = 34 weeks, 5 day(s) FL: 6.4cm = 33 weeks, 1 day(s) EGA by ultrasound: 34 weeks 2 day(s) MIKE by ultrasound: 10/02/2022 Estimated weight: 2446 grams Weight percentile: 36% US/OB Limited With Biometrics IMPRESSION: Living intrauterine with estimated gestational age of 34 weeks and 2 days. Electronically Signed: Pablo Atwood MD at 21:53 EDT ,
== END | disposition home or self-care (01) ==
LOC: US 16:53
PROVIDERS: PCP Internal Medicine; Referring Provider Obstetrics & Gynecology; Visit Provider Obstetrics & Gynecology
DX: O99.210 Obesity complicating pregnancy, unspecified trimester (principal); Z3A.01 Less than 8 weeks gestation of pregnancy
CPT/HCPCS: 76816

== ENCOUNTER → 2022-08-30 | Outpatient (CLI) | payer OTHER, SELFPAY ==
--- NOTE | 2022-08-30 17:17 | US_ITS ---
STUDY: SECOND AND THIRD TRIMESTER OBSTETRICAL ULTRASOUND - LIMITED REASON FOR EXAM: Female, 26 years old MEAGAN LMP: PRIOR ULTRASOUND: None. TECHNIQUE: Transabdominal TECHNICAL QUALITY: Adequate. FINDINGS: There is a single intrauterine fetus. The fetus is in a breech presentation. There is demonstrated cardiac activity with a heart rate of 133 bpm. There is a normal amniotic fluid volume. The largest amniotic fluid pocket measures 7.2 x 5.2 cm. The amniotic fluid index (MEAGAN) is 21.87 cm. The placenta is fundal There are Grade 2 placental changes. The cervix measures 3.9 cm in length. Age by LMP: 35 weeks, 6 days. MIKE by LMP: September 28, 2022. US/OB Limited (No Biometrics) IMPRESSION: Viable intrauterine gestation approximately 36 weeks gestational age with fetus in breech presentation. MEAGAN 21.87 cm Electronically Signed: Caden Marroquin MD at 20:23 EDT ,
== END | disposition home or self-care (01) ==
LOC: US 16:35
PROVIDERS: PCP Internal Medicine; Referring Provider Obstetrics & Gynecology; Visit Provider Obstetrics & Gynecology
DX: O13.9 Gestational [pregnancy-induced] hypertension without significant proteinuria, unspecified trimester (principal); Z3A.00 Weeks of gestation of pregnancy not specified
CPT/HCPCS: 76815; 87081

== ENCOUNTER 2022-09-04 16:25 | Inpatient (IN) | payer OTHER, SELFPAY ==
[2022-09-04] VITALS (29 sets, daily range): BP systolic 111–177; BP diastolic 65–101; PULSE 70–113; RESP 16–18; TEMP 36.2–37.1; O2SAT 96–100; BMI 43.4
[2022-09-04] MEDS: Magnesium Sulfate 4gm/100mL 4 GM/100 ML IV.SOLN. IV (17:19)
[2022-09-04] MEDS: NIFEdipine 10 MG Capsule PO (17:19)
[2022-09-04] MEDS: Labetalol (Prefilled) 20 MG/4 ML IV (17:19)
[2022-09-04] MEDS: Labetalol (Prefilled) 20 MG/4 ML 40 MG IV (17:32)
--- NOTE | 2022-09-04 17:42 | HP.PCM.OB_ITS ---
HPI - General General Date of Admission: 09/04/22 HPI Narrative SHERRIE SHAH, is a 26 y/o @ 37 weeks 9 days who presents to L&D for primary section due to breech presentation and severe range blood pressures as high at 190's/100's. She was initially scheduled for induction if the baby was cephalic in presentation, however due to staffing issues, L&D asked to postpone her induction. In the meantime she was brought to the office for an NST and scan of position and was found to have severe blood pressure ranges and breech presentation. The decision was made to proceed with an JOB . She denies headaches, abdominal, pain or worsening swelling. She does however state that she feels like vomiting. Maternal Data Information MIKE Calculator Estimated Delivery Date Method Current WG Current Estimate 09/25/22 LMP (Certain) 37w 0d PFSH PFSH Medical History Abnormality of hormone Depression Home Medications multivitamin no.47-iron fum 27 mg-folate no.1 1 mg-dha 300 mg capsule (PNV-DHA) 1 cap PO DAILY 02/28/22 [History Last Taken 09/04/22 10:00] ondansetron 4 mg disintegrating tablet 4 mg PO Q4H PRN nausea and vomiting #60 tabs 04/29/22 [Rx Last Taken Unknown] blood sugar diagnostic (Blood Glucose Test strips) #50 ea 07/05/22 [Rx Last Taken Unknown] blood-glucose meter #1 ea 07/05/22 [Rx Last Taken Unknown] lancets #100 ea 07/05/22 [Rx Last Taken Unknown] citalopram 20 mg tablet (Celexa) 20 mg PO DAILY anxiety/depression 09/04/22 [History Last Taken 09/03/22 21:00] nifedipine 60 mg tablet,extended release 24 hr (Procardia XL) 60 mg PO DAILY gest htn 09/04/22 [History Last Taken 09/04/22 11:00] Allergy/AdvReac Type Severity Reaction Status Date / Time No Known Allergies Allergy Verified 09/04/22 15:50 Family History Father Hypertension Other Colon cancer Diabetes Heart disease Social History adopted: No household members: spouse housing: house current occupational status: employed current occupation: [employer] pets and animals: Yes pets and animals: dog(s) history of recent travel: No Smoking Status: Never smoker alcohol intake: former details: social not while substance use type: does not use well-balanced diet: daily or most days caffeine: No eating out: 4 or more times/week during the past year weight has: decreased > 10 lbs 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 seatbelt use: always do you feel safe at home: Yes additional social history: - Maverick- Sugar History 1 Elective abortions Hx Para 0 Spontaneous abortions Hx # Term Pregnancies Ectopic pregnancies Hx # Pregnancies Multiple births # of living children Visit Details Expected Delivery Route/Plan Labor Preferences- CB/BF classes: encouraged labor support person: manjinder Temple and Amber labor intervention preferences: none pain management options preferred: epidural cut cord/dad catch: cord : yes PP control planned: discussed discussed possible routes of delivery and associated risks: [] special requests: [] Plans Covid status: discussed Flu vaccine: discussed Tdap vaccine: given Rhogam: na LARC form signed: yes movement and labor precautions reviewed. Problem list reviewed and updated with the most current plan of care details and appropriate orders placed. Relevant counseling for the gestational age provided. Continue routine care and follow up unless otherwise noted in visit notes/problem list details OB Flowsheet Initial Weight: Not Recorded Date -?-?-?-?-?-?-?-?-?-?-?-?- EGA Weight BP Urine Prot -?-?-?-?-?-?-?-?-?-?-?-?- Glucose FHR FuHt Pres Dilation -?-?--?-?-?-?-?-?-?-?-?-?- Effaced St Visit Note 03/04/22 -?-?-?-?-?-?-?-?-?-?-?-?- 10w 5d 233 lb 129/73 -?-?-?-?-?-?-?-?-?-?-?-?- 180 -?-?-?-?-?-?-?-?-?-?-?-?- SM- CRL 2.8 cm c ons with LMP 04/01/22 -?-?-?-?-?-?-?-?-?-?-?-?- 14w 5d 237 lb 136/88 Negative -?-?-?-?-?-?-?-?-?-?-?-?- Negative 157 -?-?-?-?-?-?-?-?-?-?-?-?- SM- no vb crampi ng 04/29/22 -?-?-?-?-?-?-?-?--?-?-?-?- 18w 5d 239 lb 134/82 Negative -?-?-?-?-?-?-?-?-?-?-?-?- Negative 156 -?-?-?-?-?-?-?-?-?-?-?-?- MH-No VB recentl y. Had in past. [facility] anatomy US ordered. Kati for nausea. 05/27/22 -?-?-?-?-?-?-?-?-?-?-?-?- 22w 5d 240 lb 130/84 Negative -?-?-?-?-?-?-?-?-?-?-?-?- Negative 152 -?-?-?-?-?-?-?-?-?-?-?-?- MH-No VB, LOF. G ood FM. Some reflux/difficulty swalloing-try pepcid 06/26/22 -?-?-?-?-?-?-?-?-?-?-?-?- 27w 0d 241 lb 8 oz 138/84 Nega tive -?-?-?-?-?-?-?-?-?-?-?-?- Negative 164 -?-?-?-?-?-?-?-?-?-?-?-?- JV- still having swallowing issues. consulting GI. no lof, vaginal bleeding, or dec fm. 07/10/22 -?-?-?-?-?-?-?-?-?-?-?-?- 29w 0d 245 lb 8 oz 132/86 Nega tive -?-?-?-?-?-?-?-?-?-?-?-?- Negative 148 29 -?-?--?-?-?-?-?-?-?-?-?-?- MH-No Vb, LOF. G ood FM. Start FE. Lar. Tdap. Is doing glucose checks QID and will call after 1 week with levels. 07/23/22 -?-?-?-?-?-?-?-?-?-?-?-?- 30w 6d 245 lb 146/86 146/86 Negative -?-?-?-?-?-?-?-?-?-?-?-?- Negative 150 31 -?-?-?-?-?-?-?-?-?-?-?-?- KW- +FM. No lof/ vb/ctx BS under 90/120. GBS discussed. to l&d f or monitoring of bp 07/26/22 -?-?-?-?-?-?-?-?-?-?-?-?- 31w 2d 241 lb 8 oz 134/84 Nega tive -?-?-?-?-?-?-?-?-?-?-?-?- Negative 150 -?-?-?-?-?-?-?-?-?-?-?-?- SM- SM- bps at home improving on 60 procardia no canas bv no vb lof good fm no regular ctx 07/30/22 -?-?-?-?-?-?-?-?-?-?-?-?- 31w 6d 246 lb 6 oz 137/91 137/91 Negative -?-?-?-?-?-?-?-?-?-?-?-?- Negative 145 32 -?-?-?-?-?-?-?-?-?-?-?-?- KW-+FM. No heada iglesia, vb,lof,ctx. BPs at home 120/70s. BS under 90/ 120. no complaints-feels much better 08/05/22 -?-?-?-?-?-?-?-?-?-?-?-?- 32w 5d 248 lb 2 oz 124/86 -?-?-?-?-?-?-?-?-?-?-?-?- 130 -?-?-?-?-?-?-?-?-?-?-?-?- SM- nl bps at ho me no canas bv no regular ctx vb lof good fm 08/08/22 -?-?-?-?-?-?-?-?-?-?-?-?- 33w 1d 248 lb 4 oz 130/92 130/92 Negative -?-?-?-?-?-?-?-?-?-?-?-?- Negative 150 -?-?-?-?-?-?-?-?-?-?-?-?- KW-NST only +FM, no contractions. BPs good at home. celexa refilled. 08/13/22 -?-?-?-?-?-?-?-?-?-?-?-?- 33w 6d 248 lb 8 oz 143/92 143/92 Negative -?-?-?-?-?-?-?-?-?-?-?-?- Negative 145 34 -?--?-?-?-?-?-?-?-?-?-?-?- KW- + FM, no ctx /vb/lof. BP ok at home. 139/86 highest at home this week, but states she had a stressful week, no concerns. 08/16/22 -?-?-?-?-?-?-?-?-?-?-?-?- 34w 2d 254 lb 152/93 134/85 Negative -?-?-?-?-?-?-?-?-?-?-?-?- Negative 140 -?-?-?-?-?-?-?-?-?-?-?-?- JV- no headache, visual changes, nst reactive. plan for 37 week IOL for pih. no proteinuria so far. 08/20/22 -?-?-?-?-?-?-?-?-?-?-?-?- 34w 6d 249 lb 8 oz 146/92 141/91 Negative -?-?-?-?-?-?-?-?-?-?-?--?- Negative 150 -?-?-?-?-?-?-?-?-?-?-?-?- JV- bp's at home are all normal. (down to 117/68), no headaches, visual changes, RUQ pain or extreme swelling. baby was breech last week. plan to rpt bedside scan next visit before scheduling iol vs primary section. 08/22/22 -?-?-?-?-?-?-?-?-?-?-?-?- 35w 1d 251 lb 144/86 Negative -?-?-?-?-?-?-?-?-?-?-?-?- Negative 140 35 -?-?-?-?-?-?-?-?-?-?-?-?- SM- no vb lof go od fm no regular ctx 09/04/22 -?-?-?-?-?-?-?-?-?-?-?-?- 37w 0d 254 lb 143/93 160/108 -?-?-?-?-?-?-?-?-?-?-?-?- 145 Breech -?-?-?-?-?-?-?-?-?-?-?-?- JV- baby still f rank breech today. bp in severe range. sending to L& D for delivery now. ROS Constitutional Constitutional: Denies change in weight, fatigue, fever(s), headache(s), poor appetite or weakness Eyes Eyes: Denies blurry vision, change in vision, seeing flashes or spots in vision ENT HEENT: Denies dizziness, headache(s), loss taste/smell or sore throat Cardiovascular Cardiovascular: Denies chest pain, dizziness, dyspnea, irregular heart rhythm, leg edema, palpitations, rapid heart rate or vomiting Respiratory/Chest Respiratory/Chest: Denies chest tightness, cough, dyspnea or breast pain Gastrointestinal Gastrointestinal: Denies abdominal pain, anorexia, constipation, cramping, diarrhea, hemorrhoids, vomiting or weight changes Genitourinary Genitourinary: Denies dysuria, flank pain, genital lesions, genital pain, urinary frequency or urinary urgency Musculoskeletal Musculoskeletal: Denies back pain, difficulty walking, joint pain, limited range of motion, muscle cramps or numbness Integumentary Integumentary: Denies lesions or unusual bruising Neurologic Neurologic: Denies abnormal movements, abnormal speech, dizziness, numbness, seizure-like activity or syncope Psychiatric Psychiatric: Denies anxiety, behavioral changes, change in appetite, change in libido, cognitive impairment, confusion, depression, difficulty concentrating, hallucinations or suicidal thoughts Endocrine Endocrinology: Denies excessive sweating, polydipsia or polyuria Hematologic/Lymphatic Hematologic/Lymphatic: Denies easy bleeding, easy bruising or lymphadenopathy Allergic/Immunologic Allergic/Immunologic: Denies itchy eyes, lip swelling, seasonal rhinorrhea, rhinitis, throat swelling, tongue swelling, eczemia, wheezing or asthma Vital Signs Vital Signs Vital Signs: 09/04/22 17:22 09/04/22 17:20 09/04/22 17:35 Temperature 97.8 F Temperature Source Temporal Pulse Rate 107 H 108 H 97 Respiratory Rate 16 16 16 Respiratory Effort Normal Non-Labored Normal Non-Labored Respiratory Depth Normal Normal Respiratory Pattern Normal Normal Blood Pressure 176/101 H 177/95 H 171/94 H Blood Pressure Mean 126 122 119 BP Systolic BP Diastolic Blood Pressure Source Monitor Monitor Blood Pressure Position Semi-Fowlers Semi-Fowlers Blood Pressure Location Right Arm Right Arm Pulse Ox 100 98 100 Oxygen Delivery Method Room Air Room Air Room Air 09/04/22 17:09 09/04/22 17:09 09/04/22 17:20 Temperature Temperature Source Pulse Rate 105 H 113 H Respiratory Rate Respiratory Effort Respiratory Depth Respiratory Pattern Blood Pressure 176/101 H Blood Pressure Mean BP Systolic 176 BP Diastolic 101 Blood Pressure Source Blood Pressure Position Blood Pressure Location Pulse Ox Oxygen Delivery Method 09/04/22 17:20 09/04/22 17:22 09/04/22 17:22 Temperature Temperature Source Pulse Rate 108 H Respiratory Rate Respiratory Effort Respiratory Depth Respiratory Pattern Blood Pressure 177/95 H Blood Pressure Mean BP Systolic 177 BP Diastolic 95 Blood Pressure Source Blood Pressure Position Blood Pressure Location Pulse Ox 98 Oxygen Delivery Method 09/04/22 17:25 09/04/22 17:25 09/04/22 17:29 Temperature Temperature Source Pulse Rate 92 Respiratory Rate Respiratory Effort Respiratory Depth Respiratory Pattern Blood Pressure 171/94 H Blood Pressure Mean BP Systolic 171 BP Diastolic 94 Blood Pressure Source Blood Pressure Position Blood Pressure Location Pulse Ox 100 Oxygen Delivery Method 09/04/22 17:29 09/04/22 17:30 09/04/22 17:30 Temperature Temperature Source Pulse Rate 91 95 Respiratory Rate Respiratory Effort Respiratory Depth Respiratory Pattern Blood Pressure Blood Pressure Mean BP Systolic BP Diastolic Blood Pressure Source Blood Pressure Position Blood Pressure Location Pulse Ox 100 Oxygen Delivery Method 09/04/22 17:35 09/04/22 17:35 09/04/22 17:38 Temperature Temperature Source Pulse Rate 96 Respiratory Rate Respiratory Effort Respiratory Depth Respiratory Pattern Blood Pressure 156/84 H Blood Pressure Mean BP Systolic 156 BP Diastolic 84 Blood Pressure Source Blood Pressure Position Blood Pressure Location Pulse Ox 99 Oxygen Delivery Method 09/04/22 17:38 09/04/22 17:40 09/04/22 17:40 Temperature Temperature Source Pulse Rate 93 96 Respiratory Rate Respiratory Effort Respiratory Depth Respiratory Pattern Blood Pressure Blood Pressure Mean BP Systolic BP Diastolic Blood Pressure Source Blood Pressure Position Blood Pressure Location Pulse Ox 100 Oxygen Delivery Method Weight Weight: 253 lb Body Mass Index (BMI) 43.4 Physical Exam Const alert, oriented x3, no apparent distress and healthy appearing General Appearance: cooperative; Negative for anxious HEENT normocephalic Face and Sinus: normal facial exam Eyes EOMs intact bilaterally and no scleral icterus General Eye: normal appearance of both eyes Neck full ROM and supple Lymph Lymphatic: no lymphadenopathy noted Chest Chest: abnormal inspection of the chest Resp normal respiratory effort Effort and Inspection: able to speak in complete sentences Cardio regular rate GI soft to palpation and non-tender Inspection: gravid Palpation: soft; Negative for tender external exam normal Amniotic Fluid: ROM+plus Back/Spine no CVA tenderness Extremity normal to inspection, full ROM and no clubbing, cyanosis or edema General Extremity: Negative for calf tenderness or edema Skin Lesions: no lesions Rashes: no rashes Psych mental status grossly normal Labs Labs Labs: Blood Type O POSITIVE Antibody Screen NEGATIVE Hct 32.6 % (37-47) L Hgb 10.7 g/dL (12.0-15.0) L Obstetrics Syphilis Total Ab Non-reactive Rubella IgG Antibody Reactive (Nonreactive) Hep Bs Antigen Non-Reactive (Nonreactive) Chlamydia DNA (VIKTORIYA) Negative (Negative) Neisseria gonorrhoeae DNA (VIKTORIYA) Negative (Negative) HIV 1&2 Antibody Non-Reactive (Nonreactive) Glucose 1 Hr 50 gm 176 mg/dL (70-140) H Miscellaneous Test Assessment & Plan (1) Breech presentation: COMMENT: plan to repeat scan at 36 weeks in office before scheduling primary vs induction at 37 weeks due to PIH. 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 (4) Gestational hypertension: COMMENT: growth us 36% at 35 weeks, steroids 07/23 and 07/24. procardia 60XL. nl labs. plan 2x weekly nsts, weekly yuliana, and weekly labs., home bp monitoring (5) Anemia in preg-unspec: COMMENT: start Fe daily (6) Difficulty swallowing: COMMENT: consult to GI- end of august (7) Obesity affecting : COMMENT: 1 tm GCT encouraged healthy weight gain. BMI 39. abn 1 hr, normal 3 hr GTT in 1 tm. declined 3 tm gct in third trimester- normal home BS checking x 1 week in third trimester. (8) Supervision of high risk , antepartum: COMMENT: [id number], MIKE 10/05/22, Maverick (9) : QUALIFIERS: Weeks of gestation: 37 weeks Qualified Code(s): Z3A.37 - 37 weeks gestation of COMMENT: GBS neg, NIPT low risk, 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 (10) Asthma: COMMENT: virus and exercise induced PLAN: Plan plan for job section hypertensive protocol initiated and she did receive procardia 10 mg po while waiting to get a difficult IV in place. She then met criteria to treat with IV labetalol 20 and 40 mg and now bp is 150's/80's Magniesum sulfate 6 gram bolus also in and running. plan to maintain at 2 g/hr. ok to hold during surgery and restart after. [facility] labs ordered and sent stat
[2022-09-04] MEDS: Acetaminophen 500 MG Tablet 1000 MG PO ×2 (17:43→22:15)
[2022-09-04] MEDS: Sodium Citrate/Citric Acid 30 ML UDC PO (17:45)
[2022-09-04] MEDS: Magnesium Sulfate 20 GM/500 ML BAG IV (17:48)
[2022-09-04 17:52] LABS: Absolute Lymphocyte Count 2.55 X10^3/uL (0.83-4.51); Absolute Neutrophil Count 7.7 X10^3/uL (2.0-7.7); Basophil# 0.02 X10^3/uL; Basophil% 0.2 % (0-1); Eosinophil# 0.57 X10^3/uL; Eosinophils% 4.9 % (0-5); Hematocrit 34.3 % (37-47); Hemoglobin 11.1 g/dL (12.0-15.0); Lymphocyte # 2.55 X10^3/ul (0.83-4.51); Lymphocyte % 21.9 % (19-41); Mean Corp Hgb Conc 32.4 g/dL (32-36); Mean Corpuscular Hgb 27.3 pg (27.0-32.0); Mean Corpuscular Volume 84.5 fL (81-99); Mean Platelet Vol. 11.8 fl (6.2-12.0); Monocyte# 0.72 X10^3/uL; Monocyte% 6.2 % (0-10); NRBC Flagged by Analyzer 0 % (0-5); Neutrophil # 7.71 X10^3/uL (2.7-7.7); Neutrophil % 66.3 % (47-70); Platelet Count 235 K/mm3 (150-450); RBC Distribution Width CV 13.9 % (11.6-14.6); RBC Distribution Width SD 42.6 fl (35.1-43.9); Red Blood Count 4.06 M/mm3 (4.2-5.4); White Blood Count 11.6 K/mm3 (4.4-11.0)
[2022-09-04 18:01] LABS: Protein, Urine (Random) 52.7 mg/dL (<11.9); Protein:Creat Ratio 296 mg/g CRE (0-200)
[2022-09-04 18:03] LABS: Creatinine, Serum 0.65 mg/dL (0.55-1.02); EST Glomerular Filtration Rate 116 mL/min (>60); Estimated Creatinine Clearance 111.27 ml/min
[2022-09-04 18:04] LABS: AST(SGOT) 13 U/L (15-37); Alanine Aminotransfer ALT/SGPT 13 U/L (13-56); Est Glom Filt Rate - Afr Amer 140 mL/min (>60); Uric Acid 4.2 mg/dL (2.6-6.0)
[2022-09-04] MEDS: Cefazolin 2 GM in 0.9% Normal Saline 100 ML IV (18:15)
[2022-09-04 18:25] LABS: Syphilis Antibodies Non-reactive
--- NOTE | 2022-09-04 18:52 | EX.PCM.OBRPT ---
Assessment & Plan (1) Breech presentation: COMMENT: plan to repeat scan at 36 weeks in office before scheduling primary vs induction at 37 weeks due to PIH. 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 (4) Gestational hypertension: COMMENT: growth us 36% at 35 weeks, steroids 4/4 and 4/5. procardia 60XL. nl labs. plan 2x weekly nsts, weekly yuliana, and weekly labs., home bp monitoring (5) Anemia in preg-unspec: COMMENT: start Fe daily (6) Difficulty swallowing: COMMENT: consult to GI- end of august (7) Obesity affecting : COMMENT: 1 tm GCT encouraged healthy weight gain. BMI 39. abn 1 hr, normal 3 hr GTT in 1 tm. declined 3 tm gct in third trimester- normal home BS checking x 1 week in third trimester. (8) Supervision of high risk , antepartum: COMMENT: [id number], MIKE 10/05/22, Maverick (9) : QUALIFIERS: Weeks of gestation: 37 weeks Qualified Code(s): Z3A.37 - 37 weeks gestation of COMMENT: GBS neg, NIPT low risk, 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 (10) Asthma: COMMENT: virus and exercise induced (11) Severely increased blood pressure and swelling during : Maternal Data Information MIKE Calculator Estimated Delivery Date Method Current WG Current Estimate 09/25/22 LMP (Certain) 37w 0d Details Operative Information Date of Procedure: 09/04/22 Pre-Operative Diagnosis: 26 y/o @ 37 weeks 0 days, breech ,severe induced hypertension Post-Operative Diagnosis: 26 y/o @ 37 weeks 0 days, breech ,severe induced hypertension Classification: JOB Procedure Type: low transverse radiator core tester #1: Leann Duque Type of Anesthesia: Spinal Anesthesiologist: Antwan Gonzalez Antibiotic Given: Ancef 2 grams IV x1 Estimated Blood Loss: 500cc Findings Description of Procedure: The patient is a 26 y/o who presented to L&D for primary section due to breech presentation and severe range blood pressures up to 190's/100's. Spinal anesthesia was placed without difficulty. Vaughn catheter was placed. The patient was placed in the dorsal supine position with leftward tilt. Patient was prepped and draped in the normal sterile fashion. Pfannenstiel skin incision was made with the scalpel and carried through to the underlying layer of fascia with the scalpel. Fascia was nicked in the midline and the incision extended laterally. The peritoneum was entered digitally. The incision was stretched and a low transverse uterine incision was made with the scalpel. The infant's feet were delivered first followed by the legs, body, and anterior shoulder was swept across the chest to deliver the right arm. The was then turned and the left arm was then swept across the chest and out. The head delivered then spontaneously. The cord was clamped and cut and the infant was handed off to awaiting nurse. The placenta was delivered spontaneously immediately following and was noted to be intact and have a three-vessel cord. The uterus was exteriorized cleared of all clots and debris. The uterus was noted to have a 4-5 cm fundal fibroid protruding from the myometrium into the cavity of the endometrium but not breaching the endometrium. This likely was causing the persistent breech presentation as it created a bicornuate like shape of the uterus. incision was closed using #1 vicryl in a single layer with excellent hemostasis achieved. The ovaries and fallopian tubes were noted to be within normal limits. The uterus was returned to the maternal abdomen and gutters were cleared of all clots and debris. The peritoneum was closed with 3-0 Monocryl in a running fashion. Gloves were changed prior to fascial closure. Fascia was closed with 0 PDS in a running fashion. Subcutaneous tissue was copiously irrigated and the skin was closed with 3-0 Monocryl in a subcuticular fashion. Mepilex dressing was applied without complication. Patient was taken to recovery in stable condition. It was discussed with the patient that based on the clinical information obtained during this encounter, combined with her history, at this time I would recommend either repeat or for future deliveries if further pregnancies are desired. Presentation: Positive for Footling Breech Amniotic Fluid Description: Clear Placenta Disposition: [facility] Cord Vessel Description: 3 Vessels Cord Entanglement: None A Gender: Male (1 minute): 8 (5 minute): 9 Delayed Cord Clamping: Yes Complications Risks of Surgery Discussed w/Patient: Bleeding, Anesthesia Risks, Infection, Need for Future C-Sections and Injury to surrounding structure(s) including bowel and bladder Multi Select Codes Urinary/Genital Urinary/Genital CPT Codes: 44386 [facility]
[2022-09-04] MEDS: Oxytocin 15 Units/NS 250ml 15 UNITS/250 ML IV.SOLN 83 UNITS IV (19:40)
[2022-09-04] MEDS: Ketorolac 30 MG/ML Syringe IV (19:50)
[2022-09-04] MEDS: Lactated Ringers 1,000 ML 20 ML IV (20:43)
[2022-09-04] MEDS: Ondansetron 4 MG/2 ML Vial IV (21:26)
--- NOTE | 2022-09-04 23:05 | NURSING ---
Report received from Renetta RN, taking over pt care at this time.
[2022-09-05] VITALS (38 sets, daily range): BP systolic 124–172; BP diastolic 72–109; PULSE 78–112; RESP 16–18; TEMP 36.2–37.3; O2SAT 96–98
[2022-09-05] MEDS: Ketorolac 30 MG/ML Syringe IV ×3 (02:20→14:43)
[2022-09-05] MEDS: Lactated Ringers 1,000 ML 50 ML IV (02:20)
[2022-09-05] MEDS: 0.9% Saline Lock 10 ML Syringe IV ×3 (02:20→22:06)
[2022-09-05] MEDS: Magnesium Sulfate 20 GM/500 ML BAG IV ×2 (04:25→14:41)
[2022-09-05] MEDS: Acetaminophen 500 MG Tablet 1000 MG PO ×3 (04:26→18:05)
[2022-09-05] MEDS: Enoxaparin 40 MG/0.4 ML Syringe SC (05:52)
[2022-09-05 05:56] LABS: Hematocrit 26.9 % (37-47); Hemoglobin 8.6 g/dL (12.0-15.0); Mean Corpuscular Hgb 27.2 pg (27.0-32.0); Mean Corpuscular Volume 85.1 fL (81-99); Mean Platelet Vol. 11.2 fl (6.2-12.0); Platelet Count 186 K/mm3 (150-450); RBC Distribution Width CV 13.9 % (11.6-14.6); RBC Distribution Width SD 43.3 fl (35.1-43.9); Red Blood Count 3.16 M/mm3 (4.2-5.4); White Blood Count 10.3 K/mm3 (4.4-11.0)
[2022-09-05] MEDS: Senna/Docusate Sodium 1 Tablet PO (09:19)
[2022-09-05] MEDS: NIFEdipine 60 MG Tablet PO (09:20)
--- NOTE | 2022-09-05 10:19 | NURSING ---
1005-dr morris was on unit earlier this am and informed this nurse that pt could have a one time 300cc po as long as her I&O was appropriate and could again possibly have it again in 4 hours as long as I&O's were still good.
[2022-09-05] MEDS: Labetalol 100 MG Tablet PO ×2 (11:13→22:05)
[2022-09-05] MEDS: Ondansetron 4 MG/2 ML Vial IV ×2 (11:27→17:08)
--- NOTE | 2022-09-05 12:47 | NURSING ---
1230-pt resting sound while up to scn visiting baby. did not awaken.
--- NOTE | 2022-09-05 13:09 | NURSING ---
1145-attempting to get tylenol documentation corrected. pt did not get the dose at 2220 last evening( was double charted for 2200 and 2215), therefore her total acetaminophen dose is not reached the 5,000mg that it states would be met. therefore pt given dose of tylenol 1,000mg at this time
--- NOTE | 2022-09-05 13:53 | PN.OBGYN_ITS ---
Subjective Subjective Patient doing well without complaints. Tolerating PO. Ambulating without difficulty. feeding well. Denies chest pain, shortness of breath, calf pain/swelling, fevers, chills, lightheadedness. Objective Data Objective Data Vital Signs: Vital Signs Temp Pulse Resp BP Pulse Ox O2 Del Method 97.2 F L 86 16 138/89 H 96 Room Air 09/05/22 12:30 09/05/22 12:30 09/05/22 12:30 09/05/22 12:30 09/05/22 12:30 09/05/22 12:30 Oxygen Delivery Method Room Air Weight: 253 lb Body Mass Index (BMI) 43.4 Intake & Output: Intake and Output for Last 24 Hours 09/03/22 09/04/22 09/05/22 23:59 23:59 23:59 Intake Total 760 / 810 2245.37 / 2245.37 Output Total 1500 / 1550 1200 / 1200 Balance -740 / -740 1045.37 / 1045.37 Lab / Micro Data Result Diagrams: 09/05/22 05:45 09/04/22 17:20 Labs: Laboratory Results - last 24 hr 09/04/22 17:20: WBC 11.6 H, RBC 4.06 L, Hgb 11.1 L, Hct 34.3 L, MCV 84.5, MCH 27.3, MCHC 32.4, RDW Std Deviation 42.6, RDW Coeff of Kyler 13.9, Plt Count 235, MPV 11.8, Immature Gran % (Auto) 0.500, Neut % (Auto) 66.3, Lymph % (Auto) 21.9, [place] % (Auto) 6.2, Eos % (Auto) 4.9, Baso % (Auto) 0.2, Absolute Neuts (auto) 7.7, Absolute Lymphs (auto) 2.55, Nucleated RBC % 0 09/04/22 17:20: Blood Type O POSITIVE, Antibody Screen NEGATIVE 09/04/22 17:20: Syphilis Total Ab Non-reactive 09/04/22 17:20: U Random Total Protein 52.7 H, Urine Creatinine 178.00, Protein/Creatinin Ratio 296 H 09/04/22 17:20: Creatinine 0.65, Estim Creat Clear Calc 111.27, Est GFR (MDRD) Af Amer 140, Est GFR (MDRD) Non-Af 116, Uric Acid 4.2, AST 13 L, ALT 13 09/05/22 05:45: WBC 10.3, RBC 3.16 L, Hgb 8.6 L, Hct 26.9 L, MCV 85.1, MCH 27.2, MCHC 32.0, RDW Std Deviation 43.3, RDW Coeff of Kyler 13.9, Plt Count 186, MPV 11.2 ROS Constitutional Constitutional: Reports systems reviewed and no addt'l complaints, except as documented Cardiovascular Cardiovascular: Reports systems reviewed and no addt'l complaints, except as documented Respiratory/Chest Respiratory/Chest: Reports systems reviewed and no addt'l complaints, except as documented Gastrointestinal Gastrointestinal: Reports systems reviewed and no addt'l complaints, except as documented Physical Exam Const alert, oriented x3 and no apparent distress HEENT Head and Scalp: atraumatic Resp normal respiratory effort GI soft to palpation and non-tender Inspection: incision intact, healing well and drainage (none) Bimanual Exam - Vag & Uterus: uterus non-tender Uterus Palpation: uterus fundus firm (below Umbilicus) Assessment & Plan (1) Severely increased blood pressure and swelling during : (2) Breech presentation: COMMENT: plan to repeat scan at 36 weeks in office before scheduling primary vs induction at 37 weeks due to PIH. (3) Gestational hypertension: COMMENT: growth us 36% at 35 weeks, steroids 4/4 and 4/5. procardia 60XL. nl labs. plan 2x weekly nsts, weekly yuliana, and weekly labs., home bp monitoring PLAN: Plan s/p LTCS PPD # 1 1. routine post care 2. breast feeding- support given 3. rh positive 4. rubella immune continue magnesium, add labetalol
--- NOTE | 2022-09-05 15:48 | NURSING ---
1500-funez bag noted to have a hole in it from being run over by the chair in [facility], therefore discontinued funez. instructed on collecting urine the next several times up to br.
--- NOTE | 2022-09-05 16:06 | CPS ---
Instructed by nursing on IS,
[2022-09-05] MEDS: Naproxen 500 MG Tablet PO (20:30)
[2022-09-05] MEDS: Citalopram 20 MG Tablet PO (22:05)
[2022-09-06] VITALS (13 sets, daily range): BP systolic 117–144; BP diastolic 64–85; PULSE 75–94; RESP 16; TEMP 35.7–37.4; O2SAT 96–99
[2022-09-06] MEDS: 0.9% Saline Lock 10 ML Syringe IV ×4 (00:18→22:01)
[2022-09-06] MEDS: Ondansetron 4 MG/2 ML Vial IV ×3 (00:18→14:57)
[2022-09-06] MEDS: Acetaminophen 500 MG Tablet 1000 MG PO ×4 (01:02→17:39)
[2022-09-06] MEDS: Naproxen 500 MG Tablet PO ×3 (05:59→20:08)
[2022-09-06] MEDS: Enoxaparin 40 MG/0.4 ML Syringe SC (06:00)
--- NOTE | 2022-09-06 07:15 | NURSING ---
bedside report given to Birdie Bell RN who is assuming care of pt at this time
[2022-09-06] MEDS: oxyCODONE 5 MG Tablet PO ×3 (08:20→22:03)
--- NOTE | 2022-09-06 08:23 | PN.OBGYN_ITS ---
Subjective Subjective Patient is sitting up in chair in the NICU comfortably without complaints. She states that she slept on an off during the night. Lochia is mild and pain is minimal but feels like burning at the incision She is somewhat tearful stating that she feels like the baby's progress is moving backward because he now has t remors and his IV blew and glucose levels are still fluctuating. Objective Data Objective Data Vital Signs: Vital Signs Temp Pulse Resp BP Pulse Ox O2 Del Method 98.0 F 83 16 117/65 96 Room Air 09/06/22 02:17 09/06/22 02:17 09/06/22 02:17 09/06/22 02:17 09/06/22 02:09/06/22 02:17 Oxygen Delivery Method Room Air Weight: 253 lb Body Mass Index (BMI) 43.4 Intake & Output: Intake and Output for Last 24 Hours 09/04/22 09/05/22 09/06/22 23:59 23:59 23:59 Intake Total 760 / 810 3290.00 / 3290.00 Output Total 1500 / 1550 3250 / 3250 Balance -740 / -740 40.00 / 40.00 Lab / Micro Data Result Diagrams: 09/05/22 05:45 09/04/22 17:20 ROS Constitutional Constitutional: Reports systems reviewed and no addt'l complaints, except as documented Cardiovascular Cardiovascular: Denies chest pain, dizziness, dyspnea or irregular heart rhythm Respiratory/Chest Respiratory/Chest: Denies cough, pain on inspiration or shortness of breath at rest Gastrointestinal Gastrointestinal: Denies abdominal pain, nausea or vomiting Genitourinary Genitourinary: Denies burning urination Musculoskeletal Musculoskeletal: Denies muscle cramps, muscle spasms or muscle weakness Neurologic Neurologic: Denies confusion, dizziness, headache(s) or lack of coordination Psychiatric Psychiatric: Denies anxiety, behavioral changes or depression Physical Exam HEENT normocephalic Resp normal respiratory effort and normal air movement GI soft to palpation, non-tender and non-distended Rectal Exam: other Other Details: Incision is clean, dry, and intact no CVA tenderness Extremity normal to inspection General Extremity: edema bilateral (trace ) Assessment & Plan (1) Severely increased blood pressure and swelling during : (2) Breech presentation: COMMENT: plan to repeat scan at 36 weeks in office before scheduling primary vs induction at 37 weeks due to PIH. (3) Depression with anxiety: (4) Gestational hypertension: COMMENT: growth us 36% at 35 weeks, steroids 4/ and 4/5. procardia 60XL. nl labs. 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 (6) Anemia in preg-unspec: COMMENT: start Fe daily (7) Difficulty swallowing: COMMENT: consult to GI- end of august (8) Obesity affecting : COMMENT: 1 tm GCT encouraged healthy weight gain. BMI 39. abn 1 hr, normal 3 hr GTT in 1 tm. declined 3 tm gct in third trimester- normal home BS checking x 1 week in third trimester. (9) Supervision of high risk , antepartum: COMMENT: [id number], MIKE 10/05/22, [place] (10) Status post section: PLAN: Plan s/p LTCS PPD # 2 1. routine post care 2. breast feeding- support given 3. rh positive 4. rubella immune 5. percocet now for incision pain 6. consider dc to hotel tomorrow.
[2022-09-06] MEDS: Labetalol 100 MG Tablet PO ×2 (10:32→22:02)
[2022-09-06] MEDS: NIFEdipine 60 MG Tablet PO (10:33)
[2022-09-06] MEDS: Ondansetron ODT 4 MG Tablet PO (22:02)
[2022-09-06] MEDS: Citalopram 20 MG Tablet PO (22:02)
[2022-09-07 01:19] VITALS: BP 133/78; PULSE 96
[2022-09-07 01:20] VITALS: BP 133/78; PULSE 97; RESP 16; TEMP 37.1; O2SAT 97
[2022-09-07] MEDS: Acetaminophen 500 MG Tablet 1000 MG PO ×2 (01:22→08:24)
[2022-09-07] MEDS: Naproxen 500 MG Tablet PO (04:32)
[2022-09-07] MEDS: Ondansetron ODT 4 MG Tablet PO (05:53)
[2022-09-07] MEDS: Enoxaparin 40 MG/0.4 ML Syringe SC (05:53)
[2022-09-07] MEDS: oxyCODONE 5 MG Tablet PO (06:22)
--- NOTE | 2022-09-07 08:23 | PCM.PN.OB ---
Subjective Subjective Patient doing well without complaints. Tolerating PO. Ambulating and voiding without difficulty. feeding well. Denies chest pain, shortness of breath, calf pain/swelling, fevers, chills, lightheadedness. Objective Data Objective Data Vital Signs: Vital Signs Temp Pulse Resp BP Pulse Ox O2 Del Method 98.8 F 97 16 133/78 H 97 Room Air 09/07/22 01:20 09/07/22 01:20 09/07/22 01:20 09/07/22 01:20 09/07/22 01:20 09/07/22 01:20 Oxygen Delivery Method Room Air Weight: 253 lb Body Mass Index (BMI) 43.4 Intake & Output: Intake and Output for Last 24 Hours 09/05/22 09/06/22 09/07/22 23:59 23:59 23:59 Intake Total 3290.00 / 3290.00 Output Total 3250 / 3250 Balance 40.00 / 40.00 Lab / Micro Data Result Diagrams: 09/05/22 05:45 09/04/22 17:20 ROS Constitutional Constitutional: Reports systems reviewed and no addt'l complaints, except as documented Cardiovascular Cardiovascular: Reports systems reviewed and no addt'l complaints, except as documented Respiratory/Chest Respiratory/Chest: Reports systems reviewed and no addt'l complaints, except as documented Gastrointestinal Gastrointestinal: Reports systems reviewed and no addt'l complaints, except as documented Physical Exam Const alert, oriented x3 and no apparent distress HEENT Head and Scalp: atraumatic Resp normal respiratory effort GI soft to palpation and non-tender Inspection: incision intact, healing well and drainage (none) Bimanual Exam - Vag & Uterus: uterus non-tender Uterus Palpation: uterus fundus firm (below Umbilicus) Assessment & Plan (1) Status post section: (2) Severely increased blood pressure and swelling during : (3) Breech presentation: COMMENT: plan to repeat scan at 36 weeks in office before scheduling primary vs induction at 37 weeks due to PIH. (4) Depression with anxiety: (5) Gestational hypertension: COMMENT: growth us 36% at 35 weeks, steroids 4/4 and 4/5. procardia 60XL. nl labs. 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 (7) Anemia in preg-unspec: COMMENT: start Fe daily (8) Difficulty swallowing: COMMENT: consult to GI- end of august (9) Obesity affecting : COMMENT: 1 tm GCT encouraged healthy weight gain. BMI 39. abn 1 hr, normal 3 hr GTT in 1 tm. declined 3 tm gct in third trimester- normal home BS checking x 1 week in third trimester. (10) Supervision of high risk , antepartum: COMMENT: [id number], MIKE 10/05/22, [place] PLAN: Plan s/p LTCS PPD # 3 1. routine post care 2. breast feeding- support given 3. rh positive 4. rubella immune 5. percocet now for incision pain 6. dc today
--- NOTE | 2022-09-07 08:25 | PCM.DC.SUM ---
Providers Date of Admission: 09/04/22 Primary Care Physician: Dr. Suzy Jackson DO Reason For Visit: C SECTION Diagnosis Discharge Diagnosis (1) Status post section: Status: Acute Code(s): Z98.891 - History of uterine scar from previous surgery (2) Severely increased blood pressure and swelling during : Status: Acute Code(s): O14.10 - Severe pre-eclampsia, unspecified trimester (3) Breech presentation: Status: Acute Code(s): O32.1XX0 - Maternal care for breech presentation, not applicable or unspecified (4) Depression with anxiety: Status: Acute Code(s): F41.8 - Other specified anxiety disorders (5) Gestational hypertension: Status: Acute Code(s): O13.9 - Gestational [-induced] hypertension without significant proteinuria, unspecified trimester (6) 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 routine post care 2. breast feeding- support given 3. rh positive 4. rubella immune 5. percocet now for incision pain 6. dc today Medications at Discharge Home Medications multivitamin no.47-iron fum 27 mg-folate no.1 1 mg-dha 300 mg capsule (PNV-DHA) 1 cap PO DAILY 02/28/22 ondansetron 4 mg disintegrating tablet 4 mg PO Q4H PRN nausea and vomiting #60 tabs 04/29/22 blood sugar diagnostic (Blood Glucose Test strips) #50 ea 07/05/22 blood-glucose meter #1 ea 07/05/22 lancets #100 ea 07/05/22 citalopram 20 mg tablet (Celexa) 20 mg PO DAILY anxiety/depression 09/04/22 nifedipine 60 mg tablet,extended release 24 hr (Procardia XL) 60 mg PO DAILY gest htn 09/04/22 Hospital Course Summary of Care Provided Hospital Course: patient presented for LTCS for breech and severe ghtn and had an uncomplicated delivery. she required some adjustments to blood pressure medicaito nand intiial magnesium sulfate treatment postoperatively. Postoperatively patient had return of bowel and bladder function and was ambulating well, tolerating adequate p.o., and was stable for discharge to home on postop day #3. Discharge medications procardia, labetalol, naproxen and Percocet. Follow-up in office in 1 week for bp check/inicision and in 6 weeks for visit. Routine post section diet and activity instructions. Weight / BMI Weight Weight: 253 lb Body Mass Index (BMI) 43.4 ABG / Lab / Microbiology Data Result Diagrams: 09/05/22 05:45 09/04/22 17:20 D/C Instructions Discharge Diet: No restrictions Discharge Activity: May Not Drive (for 2 weeks or while taking narcotic pain medications.), May Shower and May Take a Tub Bath (in 7 days) May shower in (days): 0 May resume sexual activity in: 4-6 weeks Weight Bearing Status: Full weight bearing Call your doctor if your incision/area has: Continuous Slow Oozing, Sudden Increased Bleeding, Increased Pain/ Swelling, Increased Redness and Foul Smelling Discharge Call your doctor if you observe: Fever of 101 or Higher and Using more than 1 pad per hour (for 2 hours) Suture Line Care: Avoid Pulling/Pushing and Avoid Pinching/Bending Cleanse incision/area with: Soap & Water and Keep Dressing Clean & Dry Please Follow Up With: Do Grant MD When: Call [phone] to make an appointment for an incision check in 1-2 weeks. Meaningful Use Info Meaningful Use Diagnoses (Choose all that apply): None applicable Discharge Plan Admission Admit Date/Time: 09/04/22 16:25 Attending Provider: Gay Gan Primary Care Provider: Suzy Jackson Discharge Orders/Prescriptions Prescriptions: No Action PNV-DHA 27 mg iron-1 mg -300 mg capsule 1 cap PO DAILY ondansetron 4 mg tablet,disintegrating 4 mg PO Q4H PRN (Reason: nausea and vomiting) Qty: 60 2RF citalopram [Celexa] 20 mg tablet 20 mg PO DAILY nifedipine [Procardia XL] 60 mg tablet extended release 24hr 60 mg PO DAILY (DME) blood-glucose meter Misc See Rx Instructions miscellaneous .MEDSUPPLY Qty: 1 0RF Rx Instructions: As directed- Test fasting and 2 HRs post meals(Total 4x/day) (DME) lancets Misc See Rx Instructions .MEDSUPPLY Qty: 100 4RF Rx Instructions: As directed (DME) Blood Glucose Test Strip See Rx Instructions .Route Qty: 50 4RF Rx Instructions: As directed Referrals / Follow Up: Manuel,DO Suzy [Primary Care Provider] -
--- NOTE | 2022-09-07 08:26 | DCINST_ITS ---
Discharge Instructions Diet Discharge Diet: No restrictions Activity Discharge Activity: Return to Normal Activity, May Drive (when pain free and off narcotic pain meds), May Shower and May Take a Tub Bath (in 4 weeks) May shower in (days): 0 May resume sexual activity in: 4-6 weeks Weight Bearing Status: Full weight bearing Lifting Restrictions: under 30 lbs for 6 weeks Dressing / Incision Call your doctor if your incision/area has: Continuous Slow Oozing, Sudden Increased Bleeding, Increased Pain/ Swelling, Increased Redness and Foul Smelling Discharge Call your doctor if you observe: Fever of 101 or Higher and Using more than 1 pad per hour (for 2 hours) Suture Line Care: Avoid Pulling/Pushing and Avoid Pinching/Bending Change Dressing in: 1 week (leave open to air after removed) Remove Dressing in: 1 week (if present) Cleanse incision/area with: Soap & Water and Keep Dressing Clean & Dry Follow Up Care Please Follow Up With: Do Grant MD When: Call to make an appointment with your doctor for a postop visit in 1 week for bp and incision check and 6 weeks. Test Results: Test results from this visit will be discussed in further detail at your follow- up appointment, if applicable. Discharge Plan Admission Admit Date/Time: 09/04/22 16:25 Attending Provider: Gay Gan Primary Care Provider: Suzy Jackson Discharge Orders/Prescriptions Prescriptions: New labetalol 100 mg tablet 100 mg PO BID Qty: 60 2RF oxycodone-acetaminophen [Percocet] 5-325 mg tablet 1 tab PO Q6H PRN (Reason: pain) 7 Days Qty: 10 0RF naproxen [naproxen] 500 mg tablet 500 mg PO BID PRN PRN (Reason: Pain) Qty: 30 1RF Continued PNV-DHA 27 mg iron-1 mg -300 mg capsule 1 cap PO DAILY ondansetron 4 mg tablet,disintegrating 4 mg PO Q4H PRN (Reason: nausea and vomiting) Qty: 60 2RF citalopram [Celexa] 20 mg tablet 20 mg PO DAILY nifedipine [Procardia XL] 60 mg tablet extended release 24hr 60 mg PO DAILY No Action (DME) blood-glucose meter Misc See Rx Instructions miscellaneous .MEDSUPPLY Qty: 1 0RF Rx Instructions: As directed- Test fasting and 2 HRs post meals(Total 4x/day) (DME) lancets Misc See Rx Instructions .MEDSUPPLY Qty: 100 4RF Rx Instructions: As directed (DME) Blood Glucose Test Strip See Rx Instructions .Route Qty: 50 4RF Rx Instructions: As directed Referrals / Follow Up: Fast,Suzy, DO [Primary Care Provider] - Disposition Disposition (needs filled in before D/C Order can be placed): Home, Self Care
[2022-09-07 10:14] VITALS: PULSE 87; O2SAT 98
[2022-09-07 10:15] VITALS: BP 146/75; PULSE 80; PULSE 88; RESP 16; TEMP 37.3; TEMP 37.4; O2SAT 97
[2022-09-07] MEDS: Labetalol 100 MG Tablet PO (10:17)
[2022-09-07] MEDS: NIFEdipine 60 MG Tablet PO (10:17)
== END 2022-09-07 11:40 | disposition home or self-care (01) | DRG 788 ==
PROVIDERS: Admitting Provider Obstetrics & Gynecology; PCP Internal Medicine; Referring Provider Obstetrics & Gynecology; Visit Provider Obstetrics & Gynecology
DX: O14.14 Severe pre-eclampsia complicating childbirth (principal); O99.214 Obesity complicating childbirth; F41.9 Anxiety disorder, unspecified; J45.909 Unspecified asthma, uncomplicated; O32.8XX0 Maternal care for other malpresentation of fetus, not applicable or unspecified; R13.10 Dysphagia, unspecified; Z37.0 Single live birth; O99.344 Other mental disorders complicating childbirth; O99.52 Diseases of the respiratory system complicating childbirth; O13.4 Gestational [pregnancy-induced] hypertension without significant proteinuria, complicating childbirth; O99.02 Anemia complicating childbirth; Z3A.37 37 weeks gestation of pregnancy; Z14.8 Genetic carrier of other disease
CPT/HCPCS: 59025; 59050; 82565; 82570; 84156; 84450; 84460; 84550; 85025; 85027; 86780; 86850; 86900; 86901; 99221; J7120; A4216; G0378; J2405

== ENCOUNTER 2022-09-12 09:09 | Outpatient (CLI) | payer OTHER, SELFPAY ==
[2022-09-13 16:10] LABS: Endomysial Antibody IgA Negative (Negative); Immunoglobulin A 184 mg/dL (87-352); t-Transglutaminase IgA <2 U/mL (0-3)
[2022-09-16 18:07] LABS: Cytoplasmic Ab (C-ANCA) <1:20 titer (Neg:<1:20); Immunoglobulin A 192 mg/dL (87-352); Immunoglobulin E 151 IU/mL (6-495); Immunoglobulin G 680 mg/dL (586-1602); Immunoglobulin M 151 mg/dL (26-217); Perinuclear Ab (P-ANCA) 1:20 titer (Neg:<1:20)
[2022-09-17 18:07] LABS: Alternaria alternata 0.44 kU/L (Class I); Anti-Centromere B Ab <0.2 AI (0.0-0.9); Anti-Chromatin <0.2 AI (0.0-0.9); Anti-Jo <0.2 AI (0.0-0.9); Anti-Scleroderma-70 AB <0.2 AI (0.0-0.9); Anti-dsDNA Ab 1 IU/mL (0-9); Beef <0.10 kU/L (Class 0); Bermuda Grass 0.66 kU/L (Class II); Cat Hair/Dander, Standard 0.36 kU/L (Class I); Chocolate <0.10 kU/L (Class 0); Corn 0.15 kU/L (Class 0/I); D farinae Mite <0.10 kU/L (Class 0); D pteronyssinus <0.10 kU/L (Class 0); Dog Epithelia 0.37 kU/L (Class I); Egg, Whole 1.73 kU/L (Class III); Elm, American White 0.21 kU/L (Class 0/I); Mouse Urine <0.10 kU/L (Class 0); Oak, White 0.15 kU/L (Class 0/I); Peanut 0.43 kU/L (Class I); Plantain, English 0.15 kU/L (Class 0/I); Pork <0.10 kU/L (Class 0); RNP Ab 0.3 AI (0.0-0.9); Ragweed, Short/Common 0.96 kU/L (Class II); SJOGREN'S Anti-SS-A test < 0.2 AI (0.0-0.9); SJOGREN'S Anti-SS-B test < 0.2 AI (0.0-0.9); Smith Ab <0.2 AI (0.0-0.9); Soybean 0.24 kU/L (Class 0/I); Wheat 2.29 kU/L (Class III)
== END 2022-09-12 23:59 | disposition home or self-care (01) ==
LOC: LAB 09:11
PROVIDERS: PCP Internal Medicine; Referring Provider Internal Medicine; Visit Provider Internal Medicine Gastroenterology
DX: R13.10 Dysphagia, unspecified (principal)
CPT/HCPCS: 36415; 82784; 82785; 83516; 86003; 86005; 86225; 86235; 86255; 86256

== ENCOUNTER 2022-12-05 09:45 | Day surgery (SDC) | payer OTHER, SELFPAY ==
--- NOTE | 2022-12-05 | ESO_PTH ---
PATIENT: SHERRIE SHAH LOC: EN U#:[id number] AGE/SX: 27/F ROOM: RE12/05/[address]: Dr. Justino Mast DO : 1995 BED: DIS: 12/05/2022 SPEC #: [id number] RECD: 12/05/22 14:09 STATUS: ELOY RENoemy #: [id number] JULIOCESAR: 12/05/22 00:[address]: Justino Mast DEPT: SURGICAL PATHOLOGY RECD BY: Celestino Kearney ENTERED: 12/06/22 07:56 SP TYPE: HEBER BLAKELY DR: Dr. Suzy Jackson DO Tissues: A - Esophagus, NOS B - Duodenum, NOS Procedures: Surgery Specimen Level IV HEADER OPERATION: EGD with biopsies and dilatation (MAC) PRE-OP DIAGNOSIS: Difficulty swallowing TISSUE SUBMITTED: A - Random esophagus biopsy, B - Duodenum biopsy MICROSCOPIC DIAGNOSIS A. Esophagus, random biopsy: Eosinophilic esophagitis. See comment. B. Duodenum, biopsy: Gastric metaplasia. See comment. AM:gen 12/09/2022 COMMENT A. Eosinophils number greater than 35 per high power field. Clinical correlation is suggested. B. Eosinophils are increased in the mucosa. Clinical correlation is suggested. MICROSCOPIC DESCRIPTION Slides are reviewed. GROSS DESCRIPTION A - Received in fixative is one container labeled with the patient's name and designated random esophagus biopsy. The specimen consists of multiple irregular fragments of light rios soft tissue that in aggregate measure 1.0 x 0.2 x 0.1 cm. The specimen is totally submitted in one cassette. B - Received in fixative is one container labeled with the patient's name and designated duodenum biopsy. The specimen consists of multiple irregular fragments of light rios soft tissue that in aggregate measure 0.5 x 0.3 x 0.1 cm. The specimen is totally submitted in one cassette. / AM:gen 12/06/2022 TC:2 CPT: 39224 x2
[2022-12-05 10:12] LABS: Internal QC Validated? YES +Cl - CLEAR BKGD
[2022-12-05 10:13] VITALS: BP 133/91; PULSE 91; RESP 16; TEMP 37; O2SAT 100; BMI 40.2
[2022-12-05 10:15] LABS: Pregnancy, Urine Negative Negative
[2022-12-05] MEDS: Lactated Ringers 1,000 ML 15 ML IV (10:25)
--- NOTE | 2022-12-05 11:36 | HP.PCM_ITS ---
History and Physical Date of Admission: 12/05/22 HPI HPI Details: SHERRIE SHAH, is a 26 F who presents to the office today for Prior workup: ? US RUQ 2..21 without acute/chronic finding. ? HIDA 2. EF 95% without reflux into common hepatic duct. 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 She underwent 09.04.22 r/t breech presentation. *BGI established 09.12.22 with dysphagia during PO intake with emesis; onset several years prior with worsening frequency in the last year. Denies history of EGD or studies performed. ROS Const Constitutional: No anorexia, fatigue, fever(s), weight change or sleep problems Eyes Eyes: No change in vision ENT ENT: No abnormal hearing, difficulty swallowing, mouth lesions, tongue swelling or throat swelling Resp Respiratory: No cough or shortness of breath Cardio Cardiology: No chest pain at rest, chest pain with exertion, shortness of breath or dyspnea on exertion Gastro GI: No difficulty swallowing Genitourinary-Female: No difficulty urinating or burning urination Musc Musculoskeletal: No joint pain, joint swelling, muscle weakness or decreased muscle mass Skin Skin: No hair loss in leg, yellowing of the eye, itchy eyes, rash, skin ulcer or skin swelling Neuro Neurology: No abnormal hearing, abnormal movements, confusion, unsteady gait/balance or memory loss Psych Psychiatric: No anxiety, No confusion and No memory loss Endo Endocrine: No fatigue or weight change Aller/Imm Allergy/Immunologic: No itchy eyes, throat swelling or tongue swelling Patric/Lymp Hematologic/Lymphatic: No easy bleeding, easy bruising or enlarged lymph nodes Exam Const General: cooperative and comfortable Nutritional Appearance: average body habitus and well nourished HENMT Head: normal to inspection Ears: hearing grossly normal bilaterally Nose: external nose normal Face and sinus: normal facial exam Mouth: oral mucosae normal Throat: posterior oropharynx normal Eyes General: appearance normal, both eyes and all related structures Neck Neck: normal visual inspection Chest Chest palpation & inspection: normal inspection of the chest and normal palpation of entire chest wall Resp Effort & Inspection: normal respiratory effort Auscultation: Bilateral: Clear to Auscultation Cardio Palpation: normal PMI Rate: regular rate Rhythm: regular rhythm GI Inspection: normal to inspection Auscultation: normal bowel sounds Percussion: normal to percussion Palpation: no hepatosplenomegaly Skin General: no rashes or lesions noted Neuro General: patient alert Extrem General: normal to inspection Psych Affect: normal affect Quality Reporting Tobacco Screening ([facility] 138) Smoking Status: Never smoker Assessment and Plan Assessment and Plan (1) Difficulty swallowing: Status: Chronic Plan: The differential diagnosis for esophageal dysphagia does include eosinophilic esophagitis, esophageal dysmotility, erosive esophagitis, esophageal stricture. She will undergo an upper endoscopy to evaluate upper GI tract. She was explained alternatives, risk, benefits including outstanding bleeding, infection, sepsis, perforation, need for emergent and . She will have an ASA of 1. We will also check food allergy testing along with an ROD and ANCA antibodies. Orders: Orders Allergen, Mini-Rast Today R13.10 - Dysphagia, unspecified Allergen, Rast Food Profile Today R13.10 - Dysphagia, unspecified ROD Comprehensive Panel Today R13.10 - Dysphagia, unspecified ANCA Today R13.10 - Dysphagia, unspecified Celiac Disease Profile Today R13.10 - Dysphagia, unspecified Immunoglobulin A Today R13.10 - Dysphagia, unspecified Immunoglobulin E Today R13.10 - Dysphagia, unspecified Immunoglobulin G Today R13.10 - Dysphagia, unspecified Immunoglobulin M Today R13.10 - Dysphagia, unspecified I have examined the patient and the H&P has been reviewed. There are no clinical changes since date of exam.
[2022-12-05 11:59] VITALS: BP 116/72; BP 119/62; BP 133/91; PULSE 67; PULSE 76; RESP 14; RESP 16; TEMP 36.3; O2SAT 93; O2SAT 94
--- NOTE | 2022-12-05 12:02 | OP.EGD_ITS ---
Patient Name: Cristela Paul Procedure Date: 12/05/2022 11:35 AM Date of : 1995 Age: 27 Procedure: Upper GI endoscopy Indications: Dysphagia Providers: Justino Mast DO Referring MD: Justino Mast DO Medicines: Monitored Anesthesia Care Patient Profile: This is a 27 year old female. Refer to note in patient chart for documentation of history and physical. Patient has symptoms of dysphagia with both liquids and solids. Complications: No immediate complications. Procedure: Pre-Anesthesia Assessment: - Prior to the procedure, a History and Physical was performed, and patient medications and allergies were reviewed. The patient is competent. The risks and benefits of the procedure and the sedation options and risks were discussed with the patient. All questions were answered and informed consent was obtained. Patient identification and proposed procedure were verified by the physician in the pre-procedure area. Mental Status Examination: alert and oriented. Airway Examination: normal oropharyngeal airway and neck mobility. CV Examination: normal. Prophylactic Antibiotics: The patient does not require prophylactic antibiotics. Prior Anticoagulants: The patient has taken no anticoagulant or antiplatelet agents. After reviewing the risks and benefits, the patient was deemed in satisfactory condition to undergo the procedure. The anesthesia plan was to use minimal sedation / analgesia (anxiolysis). Immediately prior to administration of medications, the patient was re-assessed for adequacy to receive sedatives. The heart rate, respiratory rate, oxygen saturations, blood pressure, adequacy of pulmonary ventilation, and response to care were monitored throughout the procedure. The physical status of the patient was re-assessed after the procedure. After obtaining informed consent, the endoscope was passed under direct vision. Throughout the procedure, the patient's blood pressure, pulse, and oxygen saturations were monitored continuously. The gastroscope was introduced through the mouth, and advanced to the second part of duodenum. The upper GI endoscopy was accomplished without difficulty. The patient tolerated the procedure well. Scope In: 11:46:03 AM Scope Out: 11:52:28 AM Total Procedure Duration Time 0 hours 6 minutes 25 seconds Findings: Mucosal changes including longitudinal furrows and small-caliber esophagus were found in the entire esophagus. Biopsies were obtained from the proximal and distal esophagus with cold forceps for histology of suspected eosinophilic esophagitis. Verification of patient identification for the specimen was done. Estimated blood loss was minimal. One benign-appearing, intrinsic moderate (circumferential scarring or stenosis; an endoscope may pass) stenosis was found 21 to 23 cm from the incisors. The stenosis was traversed. The dilation site was examined and showed mild mucosal disruption and moderate improvement in luminal narrowing. Estimated blood loss was minimal. A small hiatal hernia was present. Localized moderate inflammation characterized by congestion (edema), erythema and nodularity was found in the first portion of the duodenum. Biopsies were taken with a cold forceps for histology. Verification of patient identification for the specimen was done. Estimated blood loss was minimal. Impression: - Esophageal mucosal changes consistent with eosinophilic esophagitis. - Benign-appearing esophageal stenosis. - Small hiatal hernia. - Duodenitis. Biopsied. - Biopsies were taken with a cold forceps for evaluation of eosinophilic esophagitis. Recommendation: - Discharge patient to home. - Resume previous diet. - Use Protonix (pantoprazole) 20 mg PO BID. - Continue present medications. Procedure Code(s): --- Professional --- 10902, Esophagogastroduodenoscopy, flexible, transoral; with biopsy, single or multiple CPT copyright 2021 [employer]. All rights reserved. The codes documented in this report are preliminary and upon wet cotton feeder review may be revised to meet current compliance requirements. Justino Mast DO 12/05/2022 12:02:01 PM This report has been signed electronically. Number of Addenda: 0 Note Initiated On: 12/05/2022 11:35 AM
--- NOTE | 2022-12-05 12:02 | OP.CCLET_ITS ---
12/05/2022 Suzy Jackson Re : Upper GI endoscopy procedure for Cristela Jcakson This procedure was performed on November. My impressions and recommendations are as follows: Impressions : - Esophageal mucosal changes consistent with eosinophilic esophagitis. - Benign-appearing esophageal stenosis. - Small hiatal hernia. - Duodenitis. Biopsied. - Biopsies were taken with a cold forceps for evaluation of eosinophilic esophagitis. Recommendations : - Discharge patient to home. - Resume previous diet. - Use Protonix (pantoprazole) 20 mg PO BID. - Continue present medications. My findings are described in the full procedure note, which is enclosed. If I can be of further assistance, please feel free to contact me at . Sincerely, Justino Mast, 12/05/2022 12:02:01 PM This report has been signed electronically.
[2022-12-05 12:10] VITALS: BP 129/78; BP 133/91; PULSE 71; RESP 16; O2SAT 99
[2022-12-05 12:15] VITALS: BP 123/72; BP 133/91; PULSE 69; RESP 14; TEMP 36.6; O2SAT 97
[2022-12-05 12:20] VITALS: BP 133/91
== END 2022-12-05 12:30 | disposition home or self-care (01) ==
LOC: EN 09:48 → AC 09:50
PROVIDERS: Anesthesiology; PCP Internal Medicine; Referring Provider Internal Medicine Gastroenterology; Visit Provider Internal Medicine Gastroenterology
PROC: 0DJ08ZZ Inspection of Upper Intestinal Tract, Via Natural or Artificial Opening Endoscopic (ICD-10-PCS; CPT 43235; principal; 2022-12-05 10:40)
DX: K20.0 Eosinophilic esophagitis (principal); K44.9 Diaphragmatic hernia without obstruction or gangrene; K22.2 Esophageal obstruction; K29.80 Duodenitis without bleeding; K31.A0 Gastric intestinal metaplasia, unspecified; J45.909 Unspecified asthma, uncomplicated; I10 Essential (primary) hypertension
CPT/HCPCS: 43239; 81025; 88305; J7120; C1769; J2405

== ENCOUNTER → 2023-09-09 | Outpatient (CLI) | payer OTHER, SELFPAY ==
[2023-09-09 08:38] LABS: Absolute Lymphocyte Count 2.28 X10^3/uL (0.83-4.51); Absolute Neutrophil Count 5.5 X10^3/uL (2.0-7.7); Basophil# 0.04 X10^3/uL; Basophil% 0.5 % (0-1); Eosinophil# 0.48 X10^3/uL; Eosinophils% 5.4 % (0-5); Hematocrit 35.4 % (37-47); Hemoglobin 10.8 g/dL (12.0-15.0); Lymphocyte # 2.28 X10^3/ul (0.83-4.51); Lymphocyte % 25.9 % (19-41); Mean Corp Hgb Conc 30.5 g/dL (32-36); Mean Corpuscular Hgb 23.1 pg (27.0-32.0); Mean Corpuscular Volume 75.6 fL (81-99); Monocyte% 5.7 % (0-10); NRBC Flagged by Analyzer 0 % (0-5); Neutrophil # 5.47 X10^3/uL (2.7-7.7); Platelet Count 296 K/mm3 (150-450); RBC Distribution Width CV 15.5 % (11.6-14.6); RBC Distribution Width SD 41.9 fl (35.1-43.9); Red Blood Count 4.68 M/mm3 (4.2-5.4); White Blood Count 8.8 K/mm3 (4.4-11.0)
[2023-09-09 08:39] LABS: Color, Urine Yellow (Yellow); Glucose, Dipstick Normal (Normal); Ketone-Dipstick Negative (Negative); Leukocyte Esterase-Dipstick 25 /ul (Negative); Nitrite-Dipstick Negative (Negative); Occult Blood-Urine Negative /ul (Negative); Protein-Dipstick Negative (Negative); Specific Gravity, Urine 1.025 (1.002-1.030); Urine Bilirubin Dipstick Negative (Negative); Urine Clarity Clear (Clear); Urine Urobilinogen Normal (Normal)
[2023-09-09 09:11] LABS: ALB/GLOB Ratio 0.9 RATIO (0.9-2.4); AST(SGOT) 7 U/L (15-37); Alanine Aminotransfer ALT/SGPT 12 U/L (13-56); Albumin, Serum 3.3 g/dL (3.2-5.0); Alkaline Phosphatase 112 U/L (45-117); Anion Gap 6 (5-15); BUN 7 mg/dL (7-18); BUN/Creat Ratio 8.7 RATIO (10-20); Calcium,Total 8.6 mg/dL (8.5-10.1); Chloride 106 mmol/L (98-107); Cholesterol 172 mg/dL (200); EST Glomerular Filtration Rate 89 mL/min (>60); Est Glom Filt Rate - Afr Amer 108 mL/min (>60); Globulin 3.7 g/dL (2.2-4.2); Glucose 95 mg/dL (74-106); High Density Lipoprotein 55 mg/dL; Potassium 3.9 mmol/L (3.5-5.1); Sodium Level 137 mmol/L (136-145); Thyroid Stim Hormone (TSH) 0.91 uIU/mL (0.358-3.74); Triglycerides 82 mg/dL; Very Low Density Lipoprotein 16 mg/dL (5-40)
[2023-09-09 10:18] LABS: Microalbumin,Random Urine 9.2 mg/L (NO RANGE EST.); Microalbumin:Creatinine Ratio 5.6 mg/g CRE (<30 mg/g CRE); Vitamin D,25 Hydroxy 22.3 ng/mL
== END | disposition home or self-care (01) ==
LOC: LAB 07:47
PROVIDERS: PCP Internal Medicine; Referring Provider Internal Medicine; Visit Provider Internal Medicine
DX: I10 Essential (primary) hypertension (principal); E55.9 Vitamin D deficiency, unspecified; D64.9 Anemia, unspecified
CPT/HCPCS: 36415; 80053; 80061; 81002; 82043; 82306; 82570; 84443; 85025

== ENCOUNTER 2023-09-14 05:02 | Emergency (ER) | payer OTHER, SELFPAY ==
[2023-09-14 05:03] VITALS: BP 175/94; PULSE 89; RESP 17; TEMP 36.1; O2SAT 99; BMI 44.4
[2023-09-14 05:05] VITALS: BP 175/94; PULSE 91; RESP 18; TEMP 36.1; O2SAT 100
--- NOTE | 2023-09-14 05:24 | CT_ITS ---
STUDY: CT ABDOMEN AND PELVIS WITH CONTRAST REASON FOR EXAM: Female, 27 years old. abd pain RADIATION DOSAGE (If Supplied By Facility): CTDIvol = ( 16.77 ) mGy, DLP = ( 1256.10 ) mGycm TECHNIQUE: IV 100mL Isovue-370 was administered. Transaxial images were obtained from the dome of the diaphragm to the symphysis pubis in the portal venous phase. Multiplanar coronal and sagittal images were reformatted. Individualized Dose Optimization Techniques Were Used For This CT. COMPARISON: Prior study dated: Ultrasound from 09/05/2021 FINDINGS: LOWER CHEST: Lung bases are clear. No cardiomegaly or pericardial effusion. LIVER: The liver is normal in size, shape, and attenuation. No focal mass. GALLBLADDER AND BILIARY TREE: The gallbladder is normally distended. No gallstones. No gallbladder wall thickening or edema. No pericholecystic fluid. No intra- or extrahepatic biliary ductal dilation. PANCREAS: No focal cystic or solid mass. SPLEEN: Normal size without focal cystic or solid mass. ADRENAL GLANDS: No nodules. KIDNEYS AND URETERS: Normal renal size and position. No hydronephrosis or nephrolithiasis. PERITONEUM: Trace pelvic free fluid. No free air. No other fluid collection. BOWEL: The stomach is unremarkable. Normal caliber small bowel. There is no obstruction. No colonic wall thickening or inflammation. No evidence of acute appendicitis. LYMPH NODES: No enlarged mesenteric or retroperitoneal lymph nodes. VESSELS: Aorta is non-dilated. URINARY BLADDER: Unremarkable. REPRODUCTIVE ORGANS: Anteverted uterus. Hypoattenuating lesion at the fundus likely represents a fibroid measuring 1.5 cm. No adnexal mass. ABDOMINAL WALL: No discrete abdominal or pelvic wall hernia. BONES: No lytic or blastic abnormality. CT/Abdomen/Pelvis W IV Cont ONLY IMPRESSION: No acute finding in the abdomen or pelvis. Trace pelvic free fluid is likely physiologic. Uterine fibroid noted. Electronically Signed: Charles Bailey MD at 6:48 EDT ,
[2023-09-14 05:35] LABS: Absolute Lymphocyte Count 2.29 X10^3/uL (0.83-4.51); Absolute Neutrophil Count 4.6 X10^3/uL (2.0-7.7); Basophil# 0.05 X10^3/uL; Basophil% 0.6 % (0-1); Eosinophil# 0.61 X10^3/uL; Eosinophils% 7.6 % (0-5); Hematocrit 34.4 % (37-47); Hemoglobin 10.2 g/dL (12.0-15.0); Lymphocyte # 2.29 X10^3/ul (0.83-4.51); Lymphocyte % 28.4 % (19-41); Mean Corp Hgb Conc 29.7 g/dL (32-36); Mean Corpuscular Hgb 22.6 pg (27.0-32.0); Mean Corpuscular Volume 76.1 fL (81-99); Mean Platelet Vol. 11.1 fl (6.2-12.0); Monocyte# 0.48 X10^3/uL; Monocyte% 5.9 % (0-10); NRBC Flagged by Analyzer 0 % (0-5); Neutrophil # 4.61 X10^3/uL (2.7-7.7); Neutrophil % 57.1 % (47-70); Platelet Count 274 K/mm3 (150-450); RBC Distribution Width CV 15.2 % (11.6-14.6); RBC Distribution Width SD 41.7 fl (35.1-43.9); Red Blood Count 4.52 M/mm3 (4.2-5.4); White Blood Count 8.1 K/mm3 (4.4-11.0)
[2023-09-14] MEDS: Ondansetron 4 MG/2 ML Vial IV (05:41)
[2023-09-14] MEDS: HYDROmorphone 1 MG/ML Syringe IV (05:41)
[2023-09-14] MEDS: 0.9% Normal Saline (1000mL) 1,000 ML 999 ML IV (05:41)
[2023-09-14 05:51] LABS: AST(SGOT) 9 U/L (15-37); Alanine Aminotransfer ALT/SGPT 14 U/L (13-56); Albumin, Serum 3.1 g/dL (3.2-5.0); Alkaline Phosphatase 113 U/L (45-117); Anion Gap 8 (5-15); BUN 12 mg/dL (7-18); BUN/Creat Ratio 14.6 RATIO (10-20); Calcium,Total 8.7 mg/dL (8.5-10.1); Chloride 108 mmol/L (98-107); Creatinine, Serum 0.82 mg/dL (0.55-1.02); EST Glomerular Filtration Rate 87 mL/min (>60); Est Glom Filt Rate - Afr Amer 105 mL/min (>60); Estimated Creatinine Clearance 127.49 ml/min; Globulin 3.5 g/dL (2.2-4.2); Glucose 101 mg/dL (74-106); Lipase 38 U/L (13-75); Protein, Total 6.6 g/dL (6.4-8.2); Sodium Level 139 mmol/L (136-145)
[2023-09-14 05:54] LABS: Bacteria 0 SEEN /hpf (None Seen); Mucous, Urine 0 SEEN /hpf (<or=2+); Red Blood Cells-Urine 0 SEEN /hpf (0-5); Squamous Epithelial Cells - UA 0 SEEN /hpf (5-10); White Blood Cells 0 SEEN /hpf (0-5)
[2023-09-14 05:59] LABS: Color, Urine Yellow (Yellow); Glucose, Dipstick Normal (Normal); Ketone-Dipstick Negative (Negative); Leukocyte Esterase-Dipstick Negative /ul (Negative); Nitrite-Dipstick Negative (Negative); Occult Blood-Urine 10 /ul (Negative); Protein-Dipstick Negative (Negative); Urine Bilirubin Dipstick Negative (Negative); Urine Clarity Clear (Clear); Urine Urobilinogen Normal (Normal); Urine pH 6.5 (5.0 - 8.0)
[2023-09-14 06:08] LABS: Internal QC Validated? YES +Cl - CLEAR BKGD; Pregnancy, Urine Negative Negative
[2023-09-14 07:02] VITALS: BP 145/85; PULSE 72; RESP 18; O2SAT 98
--- NOTE | 2023-09-14 07:21 | EX.ED.DYSGE1 ---
HPI History of Present Illness Chief Complaint: Flank Pain Informant: patient Narrative Narrative: Patient is a 27-year-old female with past medical history of depression and gastritis. She states that she woke around 3 in the morning with right-sided upper abdominal/flank pain that was wrapping towards her back. She denies any recent trauma or excessive activity. She denies any loss of bowel or bladder control or IV drug use. She denies any dysuria. She states she is currently on her menstrual cycle and therefore has noted hematuria. She reports that she does have a remote history of kidney stone and this feels similar nature and had concern for this and therefore comes in for evaluation [facility] Medical History (Updated 09/18/23 @ 02:[address] Blair Diaz, DO) Anemia Anxiety Wears contact lenses Wears glasses Low iron Heartburn Non-smoker Hypertension care and examination Severely increased blood pressure and swelling during Breech presentation Gestational hypertension Anemia in preg-unspec Obesity affecting Supervision of high risk , antepartum Abnormality of hormone Depression Home Medications ?Medication ?Instructions ?Recorded ?Last Taken ?Type citalopram 40 mg tablet 40 mg PO DAILY depression #30 tabs 09/09/22 Unknown Rx pantoprazole 20 mg tablet,delayed 40 mg (2 x 20 mg) PO Q12H #60 tabs 07/22/23 Unknown Rx release Allergy/AdvReac Type Severity Reaction Status Date / Time No Known Allergies Allergy Verified 12/02/22 10:14 Family History Father Hypertension Other Colon cancer Diabetes Heart disease Surgical History Status post section Social History adopted: No household members: spouse housing: house current occupational status: employed current occupation: [employer] pets and animals: Yes pets and animals: dog(s) history of recent travel: No Smoking Status: Never smoker alcohol intake: former details: social not while substance use type: does not use well-balanced diet: daily or most days caffeine: No eating out: 4 or more times/week during the past year weight has: decreased > 10 lbs deloris/gnosticist: Restoration seatbelt use: always do you feel safe at home: Yes 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 ROS ED Constitutional Constitutional ED: Denies chills or fever(s) Eyes Eyes: Denies change in vision ENT ENT ED: Denies sore throat Cardiovascular Cardiovascular: Denies chest pain Respiratory/Chest Respiratory/Chest: Denies cough or dyspnea Gastrointestinal Gastrointestinal: Reports abdominal pain and nausea; Denies diarrhea or vomiting Genitourinary Genitourinary ED: Reports hematuria; Denies dysuria or urinary frequency Musculoskeletal Musculoskeletal: Reports back pain; Denies myalgias Integumentary Denies rash Neurologic Neurologic: Denies headache(s) Hematologic/Lymphatic Hematologic/Lymphatic: Denies easy bleeding or easy bruising EXAM Physical Exam Const Vital Signs: 09/14/23 05:03 09/14/23 05:05 Temperature 96.9 F L 96.9 F L Temperature Source Temporal Temporal Pulse Rate 89 91 Respiratory Rate 17 18 Blood Pressure 175/94 H 175/94 H Blood Pressure Mean 121 121 Pulse Ox 99 100 Oxygen Delivery Method Room Air Room Air Positive well nourished, well developed and obese General Appearance ED: well developed; Negative for pallor Nutritional Appearance: obese HEENT HEENT Narrative: Normocephalic atraumatic Eyes PERRL and EOMs intact bilaterally General Eye ED: Negative for pale conjunctiva or scleral icterus Neck supple Neck Narrative: No nuchal rigidity or meningeal signs Resp normal respiratory effort and clear to auscultation bilaterally Cardio regular rate and regular rhythm Rate: other Other Details: Heart is regular rate and rhythm without murmurs rubs or gallops Radial and carotid pulses are equal and symmetric GI non-distended GI Narrative: Abdomen is soft and nondistended with normal active bowel sounds. Patient has pain with palpation in the right upper quadrant without voluntary guarding or rigidity. Negative Pritchard sign. No pulsatile mass or fluid wave Auscultation: normoactive bowel sounds Palpation: soft Back/Spine Back/Spine Narrative: Positive right CVA pain noted Extremity normal to inspection Neuro oriented x3, CN's II-XII intact bilaterally and no sensory deficits noted Sensorium / Orientation: alert Motor Exam: strength 5/5 throughout Psych mental status grossly normal Skin no rashes or lesions noted, no wounds and skin turgor normal Skin Narrative: No overlying soft tissue changes to suggest trauma or infection General Skin Exam: Negative for jaundice or pallor MDM MDM MDM Narrative Medical decision making narrative: Patient presented to the ER hypertensive but otherwise with stable vitals. She reported spontaneous pain along the right upper abdomen that wraps towards the right back/flank. She denied any recent trauma or excessive activity. Differential diagnosis is for biliary colic versus acute cholecystitis versus pancreatitis versus kidney stone versus UTI versus pyelonephritis versus lumbosacral strain. Secondary to this broad differential basic labs with urine sample were obtained as well as a CT scan with IV contrast. Urine showed no sign of infection patient is not and labs revealed no clinically significant finding. CT scan also revealed no obvious stone or signs of cholelithiasis or acute cholecystitis. On reevaluation the patient has had resolution of pain with the provided medication and her abdomen remains soft and nonsurgical. Therefore at this time with overall negative workup and resolution of symptoms I do not feel there is need for further testing in the ER and patient can be discharged and follow-up on an outpatient basis History & Record Review Discussion w/independent historian: Patient Lab Data Attestation: I reviewed the patient's lab results. Labs: Laboratory Results - last 24 hr 09/14/23 09/14/23 05:19 05:45 WBC 8.1 RBC 4.52 Hgb 10.2 L Hct 34.4 L MCV 76.1 L MCH 22.6 L MCHC 29.7 L RDW Std Deviation 41.7 RDW Coeff of Kyler 15.2 H Plt Count 274 MPV 11.1 Immature Gran % (Auto) 0.400 Neut % (Auto) 57.1 Lymph % (Auto) 28.4 [place] % (Auto) 5.9 Eos % (Auto) 7.6 H Baso % (Auto) 0.6 Absolute Neuts (auto) 4.6 Absolute Lymphs (auto) 2.29 Nucleated RBC % 0 Sodium 139 Potassium 4.0 Chloride 108 H Carbon Dioxide 23.0 Anion Gap 8 BUN 12 Creatinine 0.82 Estim Creat Clear Calc 127.49 Est GFR (MDRD) Af Amer 105 Est GFR (MDRD) Non-Af 87 BUN/Creatinine Ratio 14.6 Glucose 101 Calcium 8.7 Total Bilirubin 0.20 Direct Bilirubin 0.10 AST 9 L ALT 14 Alkaline Phosphatase 113 Total Protein 6.6 Albumin 3.1 L Globulin 3.5 Lipase 38 Urine Color Yellow Urine Clarity Clear Urine pH 6.5 Ur Specific [place] 1.010 Urine Protein Negative Urine Glucose (UA) Normal Urine Ketones Negative Urine Occult Blood 10 H Urine Nitrite Negative Urine Bilirubin Negative Urine Urobilinogen Normal Ur Leukocyte Esterase Negative Urine RBC 0 SEEN Urine WBC 0 SEEN Ur Squamous Epith Cells 0 SEEN Urine Bacteria 0 SEEN Urine Mucus 0 SEEN Urine Test Negative Radiography Diagnostic Testing: Clinical Impression(s) from Imaging Studies Abdomen/Pelvis CT 09/14/23 05:24 IMPRESSION: No acute finding in the abdomen or pelvis. Trace pelvic free fluid is likely physiologic. Uterine fibroid noted. Electronically Signed: Cahrles Bailey MD at 6:48 EDT , Discharge Plan Triage Chief Complaint: Flank Pain ED Provider: Blair Diaz Dx/Rx/DC Orders Clinical Impression: Nonspecific abdominal pain, Depression with anxiety, Eosinophilic esophagitis Instructions: ED Abdominal Pain Unkn Cause Fem Prescriptions: No Action pantoprazole 20 mg tablet,delayed release (DR/EC) 40 mg PO Q12H Qty: 60 5RF citalopram 40 mg tablet 40 mg PO DAILY Qty: 30 12RF Primary Care Provider: Suzy Jackson Referrals: Suzy Jackson, [Primary Care Provider] - Activity Restrictions/Additional Instructions: Your workup in the ER did not show any obvious signs of infection or gallstones or kidney stones. Symptoms could still possibly related to a gallbladder dysfunction and therefore talk to your family doctor about an outpatient ultrasound of the gallbladder and/or HIDA scan if symptoms persist. Symptoms could also be related to potential gastritis or ulcer and you may need an EGD. You can discuss referral to GI with your family doctor as well. Return to the ER should you have any further concerns Print Language: Omani Disposition Disposition: Home, Self Care Discharge Date/Time: 09/14/23 07:46
[2023-09-14 07:43] VITALS: BP 145/85; PULSE 72; RESP 18; TEMP 36.6; O2SAT 98
== END 2023-09-14 07:46 | disposition home or self-care (01) ==
PROVIDERS: Emergency Provider Emergency Medicine; PCP Internal Medicine; Visit Provider Emergency Medicine
DX: R10.9 Unspecified abdominal pain (principal); K20.0 Eosinophilic esophagitis; I10 Essential (primary) hypertension; M54.9 Dorsalgia, unspecified; E66.9 Obesity, unspecified; F32.A Depression, unspecified; F41.9 Anxiety disorder, unspecified; Z79.899 Other long term (current) drug therapy
CPT/HCPCS: 74177; 80048; 80076; 81001; 81025; 83690; 85025; 96361; 96374; 96375; 99283; J7030; Q9967; A4216; J2405

== ENCOUNTER → 2024-03-04 | Outpatient (CLI) | payer OTHER, SELFPAY | END | disposition home or self-care (01) | LOC: US 07:21 | PROVIDERS: PCP Internal Medicine; Referring Provider Internal Medicine; Visit Provider Internal Medicine | DX: R10.11 Right upper quadrant pain (principal); N63.10 Unspecified lump in the right breast, unspecified quadrant; N63.20 Unspecified lump in the left breast, unspecified quadrant | CPT/HCPCS: 76705 ==

== ENCOUNTER → 2024-03-09 | Outpatient (CLI) | payer OTHER, SELFPAY | END | disposition home or self-care (01) | PROVIDERS: PCP Internal Medicine; Referring Provider Internal Medicine; Visit Provider Internal Medicine | DX: N63.10 Unspecified lump in the right breast, unspecified quadrant (principal); N63.20 Unspecified lump in the left breast, unspecified quadrant; R92.8 Other abnormal and inconclusive findings on diagnostic imaging of breast | CPT/HCPCS: 76642; 77062; 77066; G0279 ==

== ENCOUNTER → 2024-05-21 | Outpatient (CLI) | payer OTHER, SELFPAY ==
[2024-05-21 12:01] LABS: Absolute Lymphocyte Count 2.34 X10^3/uL (0.83-4.51); Absolute Neutrophil Count 6.3 X10^3/uL (2.0-7.7); Basophil# 0.03 X10^3/uL; Basophil% 0.3 % (0-1); Eosinophil# 0.22 X10^3/uL; Eosinophils% 2.3 % (0-5); Hematocrit 34.5 % (37-47); Lymphocyte # 2.34 X10^3/ul (0.83-4.51); Lymphocyte % 24.5 % (19-41); Mean Corp Hgb Conc 31.9 g/dL (32-36); Mean Corpuscular Hgb 24.1 pg (27.0-32.0); Mean Corpuscular Volume 75.7 fL (81-99); Mean Platelet Vol. 11.2 fl (6.2-12.0); Monocyte# 0.66 X10^3/uL; Monocyte% 6.9 % (0-10); NRBC Flagged by Analyzer 0 % (0-5); Neutrophil # 6.28 X10^3/uL (2.7-7.7); Neutrophil % 65.7 % (47-70); Platelet Count 294 K/mm3 (150-450); RBC Distribution Width SD 43.9 fl (35.1-43.9); Red Blood Count 4.56 M/mm3 (4.2-5.4); White Blood Count 9.6 K/mm3 (4.4-11.0)
[2024-05-21 12:14] LABS: ALB/GLOB Ratio 0.8 RATIO (0.9-2.4); AST(SGOT) 8 U/L (15-37); Alanine Aminotransfer ALT/SGPT 18 U/L (13-56); Albumin, Serum 3.2 g/dL (3.2-5.0); Alkaline Phosphatase 107 U/L (45-117); Anion Gap 7 (5-15); BUN 6 mg/dL (7-18); BUN/Creat Ratio 9.9 RATIO (10-20); Chloride 104 mmol/L (98-107); Creatinine, Serum 0.61 mg/dL (0.55-1.02); EST Glomerular Filtration Rate 123 mL/min (>60); Est Glom Filt Rate - Afr Amer 148 mL/min (>60); Glucose 77 mg/dL (74-106); Protein, Total 7.2 g/dL (6.4-8.2); Sodium Level 136 mmol/L (136-145)
[2024-05-21 12:27] LABS: Protein, Urine (Random) 6.1 mg/dL (<11.9); Protein:Creat Ratio 138 mg/g CRE (0-200)
[2024-05-21 13:22] LABS: Hemoglobin A1c 5.3 % (3.8-5.6)
[2024-05-22 12:35] LABS: HIV - WCH Non-Reactive (Nonreactive); Hepatitis B Surface Antigen Non-Reactive (Nonreactive); Hepatitis C Antibody Non-Reactive (Nonreactive); Rubella IgG Reactive (Nonreactive); Syphilis Antibodies Non-reactive
[2024-05-24 00:07] LABS: Chlamydia By Nucleic Acid AMP Negative (Negative); Gonococcus By Nucleic Acid AMP Negative (Negative)
[2024-05-27 15:07] LABS: HPV APTIMA, High Risk Negative (Negative)
== END | disposition home or self-care (01) ==
LOC: BWCLAB 11:19
PROVIDERS: PCP Internal Medicine; Referring Provider Obstetrics & Gynecology; Visit Provider Obstetrics & Gynecology
DX: O16.9 Unspecified maternal hypertension, unspecified trimester (principal); Z13.1 Encounter for screening for diabetes mellitus; Z12.4 Encounter for screening for malignant neoplasm of cervix; Z3A.00 Weeks of gestation of pregnancy not specified
CPT/HCPCS: 36415; 80053; 82570; 83036; 84156; 85025; 86703; 86762; 86780; 86803; 86850; 86900; 86901; 87086; 87340; 87491; 87591; 87624; 88175; G0145

== ENCOUNTER → 2024-09-30 | Outpatient (CLI) | payer OTHER, SELFPAY ==
[2024-09-30 16:48] LABS: Absolute Lymphocyte Count 2.26 X10^3/uL (0.83-4.51); Absolute Neutrophil Count 7.9 X10^3/uL (2.0-7.7); Basophil# 0.03 X10^3/uL; Basophil% 0.3 % (0-1); Eosinophil# 0.38 X10^3/uL; Eosinophils% 3.3 % (0-5); Hematocrit 30.5 % (37-47); Hemoglobin 9.5 g/dL (12.0-15.0); Lymphocyte # 2.26 X10^3/ul (0.83-4.51); Lymphocyte % 19.8 % (19-41); Mean Corp Hgb Conc 31.1 g/dL (32-36); Mean Corpuscular Hgb 25.2 pg (27.0-32.0); Mean Corpuscular Volume 80.9 fL (81-99); Mean Platelet Vol. 11.6 fl (6.2-12.0); NRBC Flagged by Analyzer 0 % (0-5); Neutrophil # 7.87 X10^3/uL (2.7-7.7); Platelet Count 247 K/mm3 (150-450); RBC Distribution Width CV 15.9 % (11.6-14.6); RBC Distribution Width SD 45.8 fl (35.1-43.9); Red Blood Count 3.77 M/mm3 (4.2-5.4); White Blood Count 11.4 K/mm3 (4.4-11.0)
[2024-09-30 18:18] LABS: Glucose Challenge Gest 1H 50g 72 mg/dL (70-140); HIV Nonreactive (Nonreactive); Syphilis Antibodies Nonreactive (Nonreactive)
== END | disposition home or self-care (01) ==
PROVIDERS: Obstetrics & Gynecology; PCP Internal Medicine; Referring Provider Obstetrics & Gynecology; Visit Provider Obstetrics & Gynecology
DX: O09.90 Supervision of high risk pregnancy, unspecified, unspecified trimester (principal); Z13.1 Encounter for screening for diabetes mellitus; Z3A.00 Weeks of gestation of pregnancy not specified
CPT/HCPCS: 36415; 82950; 85025; 86703; 86780

== ENCOUNTER → 2024-10-26 | Outpatient (CLI) | payer OTHER, SELFPAY ==
--- NOTE | 2024-10-26 14:40 | US_ITS ---
PROCEDURE: OB BIOPHYSICAL PROF W/O NST 10/26/2024 REASON FOR EXAM: WELL BEING TECHNIQUE: OB BIOPHYSICAL PROF W/O NST COMPARISON: None FINDINGS Number: 1 Position: Vertex Placental Position: Posterior and not low-lying. Placental Abnormalities: No evidence of previa. ESTIMATED GESTATIONAL AGE: Baseline: 31 weeks and 6 days ESTIMATED DATE OF DELIVERY: Baseline: December 22, 2024. BIOPHYSICAL ASSESSMENT: Amniotic Fluid Volume: 6.8 cm x 4.6 cm Amniotic Fluid Index: 10.4 (8-24 cm normal range) Cardiac Motion: 164 beats per minute (average) Trunk and Limb Motion: Present. Biophysical profile: Breathing movements: 2 Gross body movements: 2 tone: 2 Amniotic fluid volume: 2 Total score: 8/8 US/OB Biophysical Prof W/O NST IMPRESSION: Normal biophysical profile. Reading Location: [place] [id number]
== END | disposition home or self-care (01) ==
LOC: US 14:36
PROVIDERS: PCP Internal Medicine; Referring Provider Nurse Practitioner Women's Health; Visit Provider Nurse Practitioner Women's Health
DX: O16.3 Unspecified maternal hypertension, third trimester (principal); Z3A.31 31 weeks gestation of pregnancy
CPT/HCPCS: 76819

== ENCOUNTER 2024-10-28 17:02 | Inpatient (IN) | payer OTHER, SELFPAY ==
[2024-10-28] VITALS (10 sets, daily range): BP systolic 124–154; BP diastolic 72–92; PULSE 84–100; RESP 14–16; TEMP 36.3–36.8; O2SAT 99–100; BMI 42.2
--- NOTE | 2024-10-28 16:01 | US_ITS ---
PROCEDURE: OB LIMITED WITH BIOMETRICS 10/28/2024 REASON FOR EXAM: GROWTH 32 WEEKS TECHNIQUE: OB LIMITED WITH BIOMETRICS COMPARISON: 08/24/2022. FINDINGS Intrauterine . BPD: 32 weeks 5 days. 61%. OFD: 33 weeks 6 days. 96%. HC: 33 weeks 2 days. 44%. AC: 32 weeks 5 days. 66%. FL: 30 weeks 0 days. 3%. Cephalic presentation. heart rate of 73-75 beats per minute. Of 8.0 cm. Posteriorly located placenta. No evidence of previa. Estimated weight of 1886 g. MIKE by ultrasound: 12/19/2024. MIKE by LMP: 12/22/2024. US/OB Limited With Biometrics IMPRESSION: heart rate of 73-75 beats per minute. The technologist called the office about the low heart rate and she was sent to the labor and delivery. Femur length of 3%. Reading Location: [place] [address]
[2024-10-28 17:38] LABS: Hematocrit 31.9 % (37-47); Hemoglobin 10.0 g/dL (12.0-15.0); Immature Granulocytes Count 0.070 X10^3/uL (0.0-0.0); Mean Corp Hgb Conc 31.3 g/dL (32-36); Mean Corpuscular Volume 79.2 fL (81-99); Mean Platelet Vol. 12.0 fl (6.2-12.0); NRBC Flagged by Analyzer 0 % (0-5); Platelet Count 247 K/mm3 (150-450); RBC Distribution Width CV 15.1 % (11.6-14.6); RBC Distribution Width SD 43.6 fl (35.1-43.9); Red Blood Count 4.03 M/mm3 (4.2-5.4); White Blood Count 12.2 K/mm3 (4.4-11.0)
[2024-10-28 17:58] LABS: Prothrombin Time (Protime)PT. 12.5 SECONDS (11.7-14.9)
--- NOTE | 2024-10-28 18:06 | PCM.HP.OB ---
HPI - General General Date of Admission: 10/28/24 HPI Narrative SHERRIE SHAH, is a 28 y/o @ 32 weeks 1 day who presented to ultrasound this afternoon for a routing growth scan. While in the ultrasound department the tech noted that the heart rate was in the 70's. The patient was brought to L&D and immediately brought to the OR. The heart rate was noted to be 150's so she was walked to the labor room for further observation. While in the labor room the heart rate went down to the 70's again and stayed there. This was confirmed by ultrasound and an LANIE was called. Maternal Data Information MIKE Calculator Estimated Delivery Date Method Current WG Current Estimate 12/22/24 LMP (Certain) 32w 1d Other Estimates 12/24/24 Ultrasound #1 31w 6d PFSH PFSH Medical History Supervision of high risk , antepartum PONV (postoperative nausea and vomiting) Anemia Anxiety Wears contact lenses Wears glasses Low iron Heartburn Non-smoker Hypertension Severely increased blood pressure and swelling during Breech presentation Gestational hypertension Obesity affecting Abnormality of hormone Depression Home Medications ?Medication ?Instructions ?Recorded ?Last Taken ?Type citalopram 40 mg tablet 40 mg PO DAILY depression #30 tabs 09/09/22 Unknown Rx pantoprazole 20 mg tablet,delayed 40 mg (2 x 20 mg) PO BID #60 01/05/24 Unknown Rx release TABLETS labetalol 100 mg tablet 100 mg PO BID 03/11/24 Unknown History PNV 153-FA 400 mcg-om3 35 mg-dha tab PO 05/07/24 Unknown History 25 mg-epa 5 mg-fish oil chew tablet ondansetron 4 mg disintegrating 4 mg PO Q8H PRN nausea and 10/26/24 Unknown Rx tablet vomiting #60 tabs Allergy/AdvReac Type Severity Reaction Status Date / Time No Known Allergies Allergy Verified 10/26/24 14:01 Family History Father Hypertension Surgical History History of esophagogastroduodenoscopy (EGD) Status post section Social History adopted: No household members: spouse and children housing: house number of children: 1 current occupational status: employed current occupation: [employer] current occupational exposures/hazards: No pets and animals: Yes (2) pets and animals: dog(s) history of recent travel: Yes (- February) out of state: Yes out of country: No sexually active: Yes Smoking Status: Never smoker alcohol intake: current details: social not while substance use type: does not use well-balanced diet: daily or most days caffeine: Yes Type: carbonated beverages Number of servings: 1 eating out: 4 or more times/week during the past year weight has: decreased > 10 lbs what type of physical activity do you participate in: none deloris/adventism: Presybeterian seatbelt use: always do you feel safe at home: Yes 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 Date Name GA/Weeks Outcome Route Bth Weight Infant Gen Labor Lgth Anesthesia Del Locatn Provider FOB 09/04/22 Jessica 37 live - full term 6lbs Male spinal [facility] Delivery Date: 09/04/22 Last Updated by: Abigail Urbina [facility] Visit Details Expected Delivery Route/Plan prior cs. needs delivered at 38 weeks. but if goes into labor on her own wants to . RLTCS BS with JV Plans Covid status: [] Flu vaccine: [] Tdap vaccine: given Rhogam: na LARC form signed: yes Problem list reviewed and updated with the most current plan of care details and appropriate orders placed. Relevant counseling for the gestational age provided. Continue routine care and follow up unless otherwise noted in visit notes/problem list details OB Flowsheet Initial Weight: Not Recorded Date <del>?</del> EGA Weight BP Urine Prot <del>?</del> Glucose FHR FuHt Pres Dilation <del>?</del> Effaced St Visit Note 05/21/24 <del>?</del> 9w 2d 226 lb 6 oz 136/88 <del>?</del> 184 <del>?</del> JV- CRL consistent with LMP. declines nipt. taking labetalol. 05/28/24 <del>?</del> 10w 2d 228 lb 6 oz 153/91 <del>?</del> 167 <del>?</del> JV- patient returns today for more bleeding. no vaginal infection or ectropion suspected. Mucous with blood seen coming from the cervix. ultrasound shows movement and heart tones. scant evidence of a ela present. bleeding precautions given. pelvic rest encouraged. 06/16/24 <del>?</del> 13w 0d 230 lb 160/95 133/84 Negative <del>?</del> Negative 160 <del>?</del> SM- no vb some cramping 07/01/24 <del>?</del> 15w 1d 228 lb 4 oz 137/87 <del>?</del> 157 <del>?</del> KW- random spotting at times and light cramping after BM today. heartbeat and movement on US today. HAs MFM US on 07/29. 07/16/24 <del>?</del> 17w 2d 233 lb 8 oz 135/79 Negative <del>?</del> Negative 150 <del>?</del> JV- no lof but still has spotting from time to time. sees mfm for scan 07/29. no clots or collecting blood on a pad or underwear. 08/11/24 <del>?</del> 21w 0d 236 lb 124/81 Negative <del>?</del> Negative 140 <del>?</del> JV- mfm ultrasound notes follow up on placentation but states is posterior. patient states they told her to practice pelvic rest. will inquire. no other complaints. 09/09/24 <del>?</del> 25w 1d 243 lb 137/84 Negative <del>?</del> Negative 140 25 <del>?</del> SM- no vb cramping lof good fm 09/30/24 <del>?</del> 28w 1d 245 lb 8 oz 136/78 Negative <del>?</del> Negative 148 29 <del>?</del> MH-NO VB, LOF. Good FM.Larc, 28 wk labs. tdap. 10/13/24 <del>?</del> 30w 0d 244 lb 8 oz 144/78 130/72 Negative <del>?</del> Negative 146 31 <del>?</del> MH-No VB, LOF. Good FM. No headaches/vision changes. Enc to start FE daily 10/26/24 <del>?</del> 31w 6d 249 lb 127/83 Negative <del>?</del> Negative 145 <del>?</del> MH-NST only. Unable to keep active on monitor to complete. Deferred and will get BPP. ROS ROS Narrative limited ROS as the patient was immediately brought to the OR and intubated after a brief interview. Constitutional Constitutional: Denies fever(s) ENT HEENT: Denies dizziness Cardiovascular Cardiovascular: Denies chest pain Neurologic Neurologic: Denies dizziness Physical Exam Const alert, oriented x3, no apparent distress and healthy appearing General Appearance: cooperative; Negative for anxious HEENT normocephalic Face and Sinus: normal facial exam Resp normal respiratory effort Effort and Inspection: able to speak in complete sentences Cardio regular rate GI soft to palpation and non-tender Inspection: gravid Palpation: soft; Negative for tender Extremity normal to inspection, full ROM and no clubbing, cyanosis or edema General Extremity: Negative for calf tenderness or edema Skin Lesions: no lesions Rashes: no rashes Psych mental status grossly normal Labs Labs Labs: Blood Type O POSITIVE Antibody Screen NEGATIVE Hct 31.9 % (37-47) L Hgb 10.0 g/dL (12.0-15.0) L Obstetrics Ultrasound Syphilis Total Ab Nonreactive (Nonreactive) Rubella IgG Antibody Reactive (Nonreactive) Hep Bs Antigen Non-Reactive (Nonreactive) Hepatitis C Antibody Non-Reactive (Nonreactive) Chlamydia DNA (VIKTORIYA) Negative (Negative) N.gonorrhoeae DNA (VIKTORIYA) Negative (Negative) HIV 1&2 Antibody Nonreactive (Nonreactive) Glucose 1 Hr 50 gm 72 mg/dL (70-140) Gest Glucose Tolerance MG/DL Rhogam given: No Miscellaneous Test Assessment & Plan (1) bradycardia, antepartum condition or complication: (2) Anemia: QUALIFIERS: Anemia type: iron deficiency Iron deficiency anemia type: unspecified iron deficiency Qualified Code(s): D50.9 - Iron deficiency anemia, unspecified COMMENT: add FE, recheck 4 wk (3) Supervision of high risk , antepartum: COMMENT: PRR , MIKE 12/22/24 , Girl -reagan. WALLACE Lopez, Maverick (4) Obesity affecting : QUALIFIERS: Trimester: third trimester Obesity type affecting : unspecified obesity Qualified Code(s): O99.213 - Obesity complicating , third trimester COMMENT: HgbA1c (5) Hypertension: QUALIFIERS: Hypertension type: primary hypertension Qualified Code(s): I10 - Essential (primary) hypertension COMMENT: labetalol 100 bid deliver 38 weeks. at 32 wk: twice weekly NST, weekly MEAGAN and growth US Q4w (6) Hx of section: COMMENT: Gestational HTN & breech. C/S 12/03/24 JV. 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 PLAN: Plan plan is for an emergency section now.
[2024-10-28] MEDS: Oxytocin 15 Units/NS 250ml 15 UNITS/250 ML IV.SOLN 83 UNITS IV (18:30)
--- NOTE | 2024-10-28 18:32 | OP.PCM_ITS ---
Assessment & Plan (1) bradycardia, antepartum condition or complication: (2) Supervision of high risk , antepartum: COMMENT: PRR , MIKE 12/22/24 , Girl -reagan. WALLACE Jessica, Maverick (3) Anemia: QUALIFIERS: Anemia type: iron deficiency Iron deficiency anemia type: unspecified iron deficiency Qualified Code(s): D50.9 - Iron deficiency anemia, unspecified COMMENT: add FE, recheck 4 wk (4) Contraception management: COMMENT: Wants BS with CS (5) Obesity affecting : QUALIFIERS: Trimester: third trimester Obesity type affecting : unspecified obesity Qualified Code(s): O99.213 - Obesity complicating , third trimester COMMENT: HgbA1c (6) Hypertension: QUALIFIERS: Hypertension type: primary hypertension Qualified Code(s): I10 - Essential (primary) hypertension COMMENT: labetalol 100 bid deliver 38 weeks. at 32 wk: twice weekly NST, weekly MEAGAN and growth US Q4w (7) Hx of section: COMMENT: Gestational HTN & breech. C/S 12/03/24 JV. (8) : QUALIFIERS: Weeks of gestation: 31 weeks Qualified Code(s): Z3A.31 - 31 weeks gestation of COMMENT: elects NIPT with gender Maternal Data Information MIKE Calculator Estimated Delivery Date Method Current WG Current Estimate 12/22/24 LMP (Certain) 32w 1d Other Estimates 12/24/24 Ultrasound #1 31w 6d Gestational age: 32 weeks 1 day [place] Doctor Who Attended Delivery: Zayra Chambers Operative Report (OB) Details Procedure Type: low transverse Date of Procedure: 10/28/24 Procedure Start Time: 17:08 Time of Delivery: 17:10 Pre-Operative Diagnosis: Breech and Other ( bradycardia ) Other Pre- Operative diagnosis: prior section Post-Operative Diagnosis: Same as Pre-operative diagnosis Classification: Stat Type of Anesthesia: General Antibiotic Given: Ancef 3 grams IV x1 Drain: Vaughn to straight drain Estimated Blood Loss: 1200cc Findings Description of surgery: The patient was brought emergently to the operating room after a bradycardia of 70 bpm was noted on the heart rate monitor and confirmed on ultrasound. Prior to this she was also seen in ultrasound with a bradycardia in the 70s. The decision was made to proceed with a emergency C- section. General anesthesia was administered and after a Betadine splash and a very quick chlorhexidine wash over the incision while the IVs were being placed a low transverse incision was made with a scalpel. The fascia was nicked in the midline with the scalpel and carried laterally with the scalpel of the medial rectus muscles were also incised, sparing the lateral rectus muscles. The remaining rectus muscles were and the peritoneum was entered bluntly a bladder blade was placed into the abdomen the lower uterine segment was noted to have a 4 cm uterine window. An incision was made superior to this using the scalpel and extended laterally manually. Initially clear fluid returned upon entering the uterus the presenting part of the fetus was the legs and buttocks. Attempt was made to reach into the uterus and find the infant's head to deliver cephalad, however this was unsuccessful and the was delivered in the breech manner. The buttocks were delivered first followed by the legs and the torso the torso was rotated to the left and the right to dislodge the shoulders. A nuchal cord was noted at this time the head was delivered atraumatically and the cord was clamped and cut the infant was handed over to the waiting fire protection inspector immediately. The placenta was delivered manually and cord gases were ordered. The uterus was noted to be boggy and with the lack of Pitocin hanging immediately uterine massage was performed TXA Hemabate and Pitocin was ordered the uterine incision was closed with a #1 Vicryl suture in a running locked fashion followed by a second layer of a #1 Monocryl suture. There was some areas of oozing on the incision that remained and further #1 Monocryl was used in [id number] fashion to create excellent hemostasis. Hemoblast was also placed over the uterine incision to ensure hemostasis. The uterus was returned to the abdomen the gutters were cleared of all clots and debris. Peritoneum was closed with a 3-0 Vicryl. The fascia was closed with a strata fix PDS suture. The subcutaneous tissue was irrigated. And closed with a 3-0 Vicryl. The skin was closed with a 4-0 Monocryl subcuticular stitch. At this time the is being resuscitated by the fire protection inspector and Apgars are pending. The infant weighed 4 pounds 1.8 ounces Surgical findings: Viable female infant Apgars pending weight 4 pounds 1.8 ounces, 4 cm uterine window in the nuchal cord x 1. Presentation: John Paul Breech Amniotic Membrane Rupture Type: Artificial Amniotic Fluid Description: Clear Placental Delivery Description: Manual Removal Placenta Disposition: [facility] Specimen collected: Yes Description of specimen(s) removed: Placenta Cord Vessel Description: 3 Vessels Cord Entanglement: Around neck x 1, loose Nuchal Cord Compression: Without compression Cord Gases: ABG and VBG A gender: Female Delayed Cord Clamping: No Channel Specialist manager general: Yes Office Admin: Leann Duque Tasks completed by assistant head cashier: Closing and Retracting Additional video library assistant?: No Complications Complications: No Multi Select Codes Urinary/Genital Urinary/Genital CPT Codes: 84112 Delivery global pkg
--- NOTE | 2024-10-28 18:48 | DCINST_ITS ---
Discharge Instructions Diet Discharge Diet: No restrictions DC O2, CPAP, BIPAP needs Home O2 Discharge instructions: No Dressing / Incision Discharge Activity: May Not Drive (for 2 weeks or while taking narcotic pain medications.), May Shower and May Take a Tub Bath (in 7 days.) May resume sexual activity in: 4-6 weeks Weight Bearing Status: Full weight bearing Lifting Restrictions: 20 pounds Dressing / Incision Call your doctor if your incision/area has: Continuous Slow Oozing, Sudden Increased Bleeding, Increased Pain/ Swelling, Increased Redness and Foul Smelling Discharge Call your doctor if you observe: Fever of 101 or Higher and Using more than 1 pad per hour Suture Line Care: Avoid Pulling/Pushing and Avoid Pinching/Bending Cleanse incision/area with: Soap & Water and Keep Dressing Clean & Dry Follow Up Care Please Follow Up With: Gay Gan DO When: Call [phone] to make an appointment for an incision check in 1-2 weeks. Test Results: Test results from this visit will be discussed in further detail at your follow- up appointment, if applicable. Discharge Plan Admission Admit Date/Time: 10/28/24 17:03 Primary Reason for Your Visit: section Attending Provider: Gay Gan Primary Care Provider: Suzy Jackson Consulting Providers: Jaqueline Hutchison NP Discharge Orders/Prescriptions Prescriptions: New ibuprofen 800 mg tablet 800 mg PO Q8H PRN (Reason: pain) Qty: 30 0RF oxycodone-acetaminophen [Percocet] 5-325 mg tablet 1 tab PO Q4H PRN (Reason: pain) 7 Days Qty: 20 0RF Continued PNV no.[id number] 400 mcg-35 mg- 25 mg-5 mg tablet,chewable PO labetalol 100 mg tablet 100 mg PO BID citalopram 40 mg tablet 40 mg PO DAILY Qty: 30 12RF pantoprazole 20 mg tablet,delayed release (DR/EC) 40 mg PO BID Qty: 60 5RF ondansetron 4 mg tablet,disintegrating 4 mg PO Q8H PRN (Reason: nausea and vomiting) Qty: 60 4RF Referrals / Follow Up: Suzy Jackson DO [Primary Care Provider] -
[2024-10-28] MEDS: Ketorolac 30 MG/ML Syringe IV (19:21)
[2024-10-28] MEDS: Lactated Ringers 1,000 ML 100 ML IV (19:21)
[2024-10-28 19:58] LABS: Syphilis Antibodies Nonreactive (Nonreactive)
[2024-10-28] MEDS: Azithromycin 500 MG in 0.9% Normal Saline (250mL Bag) 250 ML 250 MG IV (20:08)
--- NOTE | 2024-10-28 20:32 | NURSING ---
Dr Godwin called charge nurse [phone] to inform patient being brought down from ultrasound for heart rate in the 70's (at this time no name was known). Charge made the decision to call and LANIE to have all staff ready. Patient arrived to the floor via ambulation by herself from Ultrasound roughly around 1639. She was immediately taken to the OR with entry at 1640. heart rate by Dr Godwin was 150's. She then wanted pt taken to a room to have extended monitoring done. Pt was taken to room 13 at 1647. She was placed back on the monitor roughly around 1650 (was still not in the computer system). Heart rate was first noted to be in the 70's. unsure if it was maternal or , a pulse ox was placed on Mother. Her heart rate was 147. Did place on another finger to verify her's again to baby. Dr Godwin was called to the room after immediately confirming heart rate was 74. Doctor did a quick ultra sound to verify as well. LANIE called at 1655 and STAT to the OR. See operative record following.
[2024-10-29 00:42] VITALS: BP 137/81; PULSE 109; RESP 16; TEMP 37.4; O2SAT 100
[2024-10-29] MEDS: 0.9% Saline Lock 10 ML Syringe IV ×2 (01:14→08:02)
[2024-10-29] MEDS: Ketorolac 30 MG/ML Syringe IV ×2 (01:14→08:01)
[2024-10-29 02:12] VITALS: BP 123/69; PULSE 87; RESP 16; TEMP 37.1; O2SAT 97
[2024-10-29 05:32] LABS: Hematocrit 25.7 % (37-47); Hemoglobin 8.0 g/dL (12.0-15.0); Mean Corp Hgb Conc 31.1 g/dL (32-36); Mean Corpuscular Volume 80.6 fL (81-99); Mean Platelet Vol. 11.7 fl (6.2-12.0); Platelet Count 201 K/mm3 (150-450); RBC Distribution Width CV 14.8 % (11.6-14.6); RBC Distribution Width SD 43.5 fl (35.1-43.9); Red Blood Count 3.19 M/mm3 (4.2-5.4); White Blood Count 14.0 K/mm3 (4.4-11.0)
[2024-10-29 06:31] VITALS: BP 138/92; PULSE 99; RESP 16; TEMP 37.1; O2SAT 99
--- NOTE | 2024-10-29 07:26 | PCM.PN.OB ---
Subjective Subjective Patient is laying in bed comfortably without complaints. She states that she slept on an off during the night. Lochia is mild and pain is minimal. Objective Data Objective Data Vital Signs: Vital Signs Temp Pulse Resp BP Pulse Ox O2 Del Method 98.8 F 99 16 138/92 H 99 Room Air 10/29/24 06:31 10/29/24 06:31 10/29/24 06:31 10/29/24 06:31 10/29/24 06:31 10/29/24 06:31 Oxygen Delivery Method Room Air Weight: 246 lb Body Mass Index (BMI) 42.2 Intake & Output: Intake and Output for Last 24 Hours 10/27/24 10/28/24 10/29/24 23:59 23:59 23:59 Intake Total 500 / 500 1000 / 1000 Output Total 1550 / 1550 1200 / 1200 Balance -1050 / -1050 -200 / -200 Lab / Micro Data 10/29/24 05:23 Labs: Laboratory Results - last 24 hr 10/28/24 17:00: WBC 12.2 H, RBC 4.03 L, Hgb 10.0 L, Hct 31.9 L, MCV 79.2 L, MCH 24.8 L, MCHC 31.3 L, RDW Std Deviation 43.6, RDW Coeff of Kyler 15.1 H, Plt Count 247, MPV 12.0, Immature Gran % (Auto) 0.600, Neut % (Auto) 63.7, Lymph % (Auto) 23.2, [place] % (Auto) 9.2, Eos % (Auto) 3.0, Baso % (Auto) 0.3, Absolute Neuts (auto) 7.8 H, Absolute Lymphs (auto) 2.84, Nucleated RBC % 0, Blood Type O POSITIVE, Antibody Screen NEGATIVE 10/28/24 17:20: PT 12.5, INR 0.9, Syphilis Total Ab Nonreactive 10/29/24 05:23: WBC 14.0 H, RBC 3.19 L, Hgb 8.0 L, Hct 25.7 L, MCV 80.6 L, MCH 25.1 L, MCHC 31.1 L, RDW Std Deviation 43.5, RDW Coeff of Kyler 14.8 H, Plt Count 201, MPV 11.7 Radiography Diagnostic Testing: Radiology Impression Obstetrics Ultrasound 10/28/24 16:01 IMPRESSION: heart rate of 73-75 beats per minute. The technologist called the office about the low heart rate and she was sent to the labor and delivery. Femur length of 3%. Reading Location: [address] Constitutional Constitutional: Reports systems reviewed and no addt'l complaints, except as documented Cardiovascular Cardiovascular: Denies chest pain, dizziness, dyspnea or irregular heart rhythm Respiratory/Chest Respiratory/Chest: Denies cough, pain on inspiration or shortness of breath at rest Gastrointestinal Gastrointestinal: Denies abdominal pain, nausea or vomiting Genitourinary Genitourinary: Denies burning urination Musculoskeletal Musculoskeletal: Denies muscle cramps, muscle spasms or muscle weakness Neurologic Neurologic: Denies confusion, dizziness, headache(s) or lack of coordination Psychiatric Psychiatric: Denies anxiety, behavioral changes or depression Physical Exam HEENT normocephalic Resp normal respiratory effort and normal air movement GI soft to palpation, non-tender and non-distended Rectal Exam: other Other Details: Incision is clean, dry, and intact no CVA tenderness Extremity normal to inspection General Extremity: edema bilateral (trace ) Assessment & Plan (1) Status post section: COMMENT: ally 32 weeks 1 day- JV (2) bradycardia, antepartum condition or complication: (3) Contraception management: COMMENT: Wants BS with CS (4) Obesity affecting : QUALIFIERS: Trimester: third trimester Obesity type affecting : unspecified obesity Qualified Code(s): O99.213 - Obesity complicating , third trimester COMMENT: HgbA1c (5) Hypertension: QUALIFIERS: Hypertension type: primary hypertension Qualified Code(s): I10 - Essential (primary) hypertension COMMENT: labetalol 100 bid deliver 38 weeks. at 32 wk: twice weekly NST, weekly MEAGAN and growth US Q4w (6) Hx of section: COMMENT: Gestational HTN & breech. C/S 12/03/24 JV. PLAN: Plan s/p LTCS PPD #1 1. routine post care 2. baby is in NICU at [facility]- weaned off vent 3. rh positive 4. rubella immune 5. dc today with 2 week post op follow up in office
[2024-10-29] MEDS: Senna/Docusate Sodium 1 Tablet PO (08:12)
[2024-10-29 08:30] VITALS: BP 147/95; PULSE 104; RESP 16; TEMP 36.9
--- NOTE | 2024-10-29 11:28 | CASEMGMT ---
Social Work SW received a consult for patient marijuana use. SW was unable to see patient before discharge as patients baby was sent to [facility] and patient wanted to leave early this morning to be with baby. This SW called [facility] and spoke to case management and explained consult received on patient and inability to asses patient prior to discharge. CM at [facility] stated they would follow up. No further needs at this time. Gayle Bailey, DRIVER HELPER, [employer]
== END 2024-10-29 10:00 | disposition home or self-care (01) | DRG 787 ==
LOC: US 10-29 07:41 → WP 10-29 07:41
PROVIDERS: Admitting Provider Obstetrics & Gynecology; PCP Internal Medicine; Referring Provider Nurse Practitioner Women's Health; Visit Provider Obstetrics & Gynecology
DX: O36.8330 Maternal care for abnormalities of the fetal heart rate or rhythm, third trimester, not applicable or unspecified (principal); O10.02 Pre-existing essential hypertension complicating childbirth; E66.9 Obesity, unspecified; D50.9 Iron deficiency anemia, unspecified; O99.214 Obesity complicating childbirth; O34.211 Maternal care for low transverse scar from previous cesarean delivery; O32.1XX0 Maternal care for breech presentation, not applicable or unspecified; Z3A.32 32 weeks gestation of pregnancy; O69.81X0 Labor and delivery complicated by cord around neck, without compression, not applicable or unspecified; O99.02 Anemia complicating childbirth; Z14.8 Genetic carrier of other disease; Z37.0 Single live birth; Z79.899 Other long term (current) drug therapy
CPT/HCPCS: 59050; 76816; 85025; 85027; 85610; 86780; 86850; 86900; 86901; A4216; J2405

== ENCOUNTER → 2024-11-04 | Outpatient (CLI) | payer OTHER, SELFPAY | END | disposition home or self-care (01) | LOC: LABSPEC 16:11 | PROVIDERS: PCP Internal Medicine; Referring Provider Obstetrics & Gynecology; Visit Provider Obstetrics & Gynecology | DX: R30.0 Dysuria (principal) | CPT/HCPCS: 87077; 87086; 87088; 87186 ==

== ENCOUNTER → 2024-11-10 | Outpatient (CLI) | payer OTHER, SELFPAY ==
[2024-11-10 16:44] LABS: Hematocrit 31.3 % (37-47); Hemoglobin 9.4 g/dL (12.0-15.0); Mean Corp Hgb Conc 30.0 g/dL (32-36); Mean Corpuscular Volume 80.1 fL (81-99); Mean Platelet Vol. 11.2 fl (6.2-12.0); Platelet Count 459 K/mm3 (150-450); RBC Distribution Width CV 14.9 % (11.6-14.6); RBC Distribution Width SD 43.4 fl (35.1-43.9); Red Blood Count 3.91 M/mm3 (4.2-5.4); White Blood Count 10.6 K/mm3 (4.4-11.0)
[2024-11-10 18:14] LABS: AST(SGOT) 13 U/L (<=31); Alanine Aminotransfer ALT/SGPT 11 U/L (<=34); Albumin, Serum 3.8 g/dL (3.5-5.0); Alkaline Phosphatase 131 U/L (35-104); Anion Gap 13 (5-15); BUN 7 mg/dL (4-19); BUN/Creat Ratio 9.2 RATIO (10-20); Calcium,Total 9.0 mg/dL (7.6-11.0); Carbon Dioxide 20.9 mmol/L (21.0-32.0); Chloride 105 mmol/L (98-108); Globulin 3.1 g/dL (2.2-4.2); Glucose 91 mg/dL (70-99); Potassium 4.4 mmol/L (3.3-5.1)
--- OUTSIDE RECORDS SUMMARY | 2024-11-10 20:13 | XMS RPT_ITS | CCD ---
Author Organization [facility] Team Providers Care Cutter Grinder Name Role Phone Fast, Rosanna A Unavailable Soco Meyers Unavailable Manchak, Nany Unavailable Unavailable Maria Teresa Marks Unavailable Unavailable Gay Cabezas Unavailable Unavailable Unavailable Unavailable Fast, Rosanna A Unavailable Soco Meyers Unavailable Gini, Nany Unavailable Unavailable Milind Valle Unavailable Unavailable Gay Cabezas Unavailable Unavailable Unavailable Unavailable Unavailable Unavailable Temitope Hendrickson Unavailable Unavailable Julia Hill Unavailable Deandra Bailey Unavailable Gini, Nany Unavailable Unavailable Milind Valle Unavailable Unavailable Milind Carrizales Unavailable Unavailable Radha Zhang Unavailable Unavailable Fast DO, Rosnana A Unavailable Dr. Soco Meyers MD Unavailable Deandra Bailey Unavailable Mangerman ASHLEY, Nany Unavailable Unavailable Milind Carrizales LPN Unavailable Unavailable Temitope Hendrickson Unavailable Unavailable Gay Cabezas Unavailable Unavailable Unavailable Unavailable Unavailable Primary Care Provider UnavailDr. Rosanna Bourgeois Primary Care Provider [phone] Dr. Rosanna Scales Referring Provider [phone] Noe SHAW, VALERIA Finch Attending Provider Dr. Gay Gan Attending Provider [phone] Fast DO, Rosanna A Unavailable Fast DO, Rosanna A Attending Unavailable Fast DO, Rosanna A Referring Unavailable Fast DO, Rosanna A Consulting Unavailable FAST DO, DR MARTE Primary Care Physician TYESHA YOO MD Attending Unavailable FAST DO, DR. MARTE Primary Care Unavailable Fast, Dr. Marte Primary Care Provider [phone] Fast, Dr. Marte Referring Provider [phone] Do Frankel Attending Provider [phone] Foster APPRENTICE ELECTRICIAN, APPRENTICE ELECTRICIAN-C Jaqueline Attending Provider [phone] Fast, Dr. Marte Primary Care Provider [phone] Fast, Dr. Marte Referring Provider [phone] Do Frankel Attending Provider [phone] Foster APPRENTICE ELECTRICIAN, APPRENTICE ELECTRICIAN-C Jaqueline Attending Provider [phone] Dr. Gay Gan Attending Provider [phone] AL [place] Attending Provider [phone] Dr. Do Frankel Referring Provider [phone] Dr. Do Frankel Other Provider Manuel, Dr. Marte Primary Care Provider [phone] Fast, Dr. Marte Referring Provider [phone] Do Frankel Attending Provider [phone] Fast, Dr. Marte Primary Care Provider [phone] Fast, Dr. Marte Referring Provider [phone] Foster APPRENTICE ELECTRICIAN, SHELLIE-C Jaqueline Attending Provider [phone] Dr. Gay Gan Admit Provider Dr. Gay Gan Referring Provider [phone] Dr. Gay Gan Other Provider Pro, Dr. Badillo Attending Provider [phone] Fast DO, Rosanna A Unavailable Dr. Soco Meyers MD Unavailable Deandra Bailey Unavailable Gini ASHLEY, Nany Unavailable Unavailable Milind Carrizales LPN Unavailable Unavailable Gay Cabezas Unavailable Unavailable Unavailable Unavailable Manuel, Dr. Marte Primary Care Provider [phone] Fast, Dr. Marte Referring Provider [phone] Do Frankel Attending Provider [phone] AL [place] Attending Provider [phone] Dr. Gay Gan Attending Provider [phone] Foster APPRENTICE ELECTRICIAN, APPRENTICE ELECTRICIAN-C Jaqueline Attending Provider [phone] Pro, Dr. Badillo Referring Provider [phone] FriendDr. Badillo Other Provider [phone] Primary Care Provider UnavailRUTH Sun Attending Unavailable Manuel DO, Dr. Marte Primary Care Provider [phone] Fast DO, Dr. Marte Referring Provider [phone] Dr. Do Frankel MD Attending Provider Marcela Espana CNM Attending Provider [phone] Zia Pillai DO, Dr. Rashid Attending Provider Debbie Trevino Attending Provider [phone] Foster CAOCJaqueline Attending Provider [phone] Zia Pillai DO, Dr. Rashid Referring Provider DO FRANKEL Referring Unavailabl e KRISS KAUR Attending Unavailable FAST, ROSANNA Primary Care Unavailable DO FRANKEL Referring Unavailabl e FAST, ROSANNA Primary Care Unavailable KAROL RICH Attending Unavailable FAST, ROSANNA Primary Care Unavailable ROSS HARTMAN Attending Unavailable DO FRANKEL Referring Unavailabl e GAYLE ARREOLA Attending Unavailab le NO, PHYSICIAN Primary Care Unavailable Fast DO, Dr. Marte Primary Care Provider [phone] Fast DO, Dr. Marte Referring Provider [phone] Dr. Do Frankel MD Attending Provider Foster HENSLEY-CJaqueline Referring Provider Foster APPRENTICE ELECTRICIAN-C, Jaqueline Other Provider [phone] Zia Pillai DO, Dr. Rashid Admit Provider [phone] Vandkathi Velchris DO, Dr. Rashid Other Provider [phone] Fast DO, Dr. Marte Primary Care Provider [phone] Fast DO, Dr. Marte Referring Provider [phone] Travis APPRENTICE ELECTRICIAN-C, [place] Attending Provider Fast, Rosanna Primary Care Unavailable Debbie Cavazos Attending Unavailable Fast, Rosanna Referring Unavailable Fast, Rosanna Primary Care Unavailable Saule Gay Pillai Attending Unavailabl e Fast, Rosanna Referring Unavailable Vande VeldeGay Attending Unavailabl e Fast, Rosanna Referring Unavailable Fast, Rosanna Primary Care Unavailable Fast, Rosanna Primary Care Unavailable Gay Gan Attending Unavailabl e Fast, Rosanna Referring Unavailable Fast, Rosanna Primary Care Unavailable Saule VeldeGay Referring Unavailabl e Vande VeldeGay Attending Unavailabl e Fast, Rosanna Primary Care Unavailable Fast, Rosanna Attending Unavailable Fast, Rosanna Referring Unavailable Gay Gan Attending Unavailabl e Vande VeldeGay Admitting Unavailabl e Fast, Rosanna Primary Care Unavailable Montgomery APPRENTICE ELECTRICIAN, Jaqueline Referring Unavailable Montgomery APPRENTICE ELECTRICIAN, Jaqueline Consulting Unavailable Vande VelGay perez Consulting Unavailabl e Foster APPRENTICE ELECTRICIAN, Jaqueline Attending Unavailable Fast, Rosanna Referring Unavailable Fast, Rosanna Primary Care Unavailable Fast, Rosanna Primary Care Unavailable Vande VeldeGay Attending Unavailabl e Fast, Rosanna Referring Unavailable Fast, Rosanna Referring Unavailable Foster APPRENTICE ELECTRICIAN, Jaqueline Attending Unavailable Fast, Rosanna Primary Care Unavailable Fast, Rosanna Referring Unavailable Fast, Rosanna Primary Care Unavailable Foster APPRENTICE ELECTRICIAN, Jaqueline Attending Unavailable Fast, Rosanna Primary Care Unavailable Fast, Rosanna Referring Unavailable Fast, Rosanna Attending Unavailable Fast, Rosanna Primary Care Unavailable Montgomery APPRENTICE ELECTRICIAN, Jaqueline Referring Unavailable Foster APPRENTICE ELECTRICIAN, Jaqueline Attending Unavailable Fast, Rosanna Primary Care Unavailable Friend, Justino Attending Unavailable Fast, Rosanna Referring Unavailable Vande Velde, Gay Referring Unavailabl e Vande Velde, Gay Attending Unavailabl e Fast, Rosanna Primary Care Unavailable Do Frankel Attending Unavailable Fast, Rosanna Referring Unavailable Fast, Rosanna Primary Care Unavailable Marcela [place] Attending Unavailable Fast, Rosanna Referring Unavailable Fast, Rosanna Primary Care Unavailable Vande Velde, Gay Attending Unavailabl e Fast, Rosanna Referring Unavailable Fast, Rosanna Primary Care Unavailable Fast, Rosanna Primary Care Unavailable Vande Velde, Gay Referring Unavailabl e Vande Velde, Gay Attending Unavailabl e Vande Velde, Gay Attending Unavailabl e Vande Velde, Gay Admitting Unavailabl e Fast, Rosanna Primary Care Unavailable Foster APPRENTICE ELECTRICIAN, Jaqueline Referring Unavailable Montgomery APPRENTICE ELECTRICIAN, Jaqueline Consulting Unavailable Fast, Rosanna Primary Care Unavailable Foster APPRENTICE ELECTRICIAN, Jaqueline Attending Unavailable Foster APPRENTICE ELECTRICIAN, Jaqueline Referring Unavailable Vande Velde, Gay Attending Unavailabl e Fast, Rosanna Referring Unavailable Fast, Rosanna Primary Care Unavailable Debbie Cavazos Attending Unavailable Fast, Rosanna Referring Unavailable Fast, Rosanna Primary Care Unavailable Do Frankel Attending Unavailable Fast, Rosanna Referring Unavailable Fast, Rosanna Primary Care Unavailable Leti Larry Attending Unavailable Fast, Rosanna Referring Unavailable Fast, Rosanna Primary Care Unavailable Fast, Rosanna Primary Care Unavailable Vande Velde, Gay Attending Unavailabl e Fast, Rosanna Referring Unavailable Fast, Rosanna Referring Unavailable MarcanthDo feng Attending Unavailable Fast, Rosanna Primary Care Unavailable Allergies Allergy Classification Reported Allergen(s) Allergy Type Date of Onset Reaction(s) Facility (2 sources) enviromental [Other] Propensity to adverse reactions 6 [facility] Work Phone: (1 source) OTHER; Translations: [OTHER] Propensity to adverse reactions (disorder) 6 [facility] Repository NEGATED: Highlighted row has been ruled out! (1 source) allergy to substance 7 [facility] Work Phone: NEGATED: Highlighted row has been ruled out! (1 source) drug allergy 2 [facility] Work Phone: NEGATED: Highlighted row has been ruled out! (1 source) Allergy to substance (finding) 7 [facility]; [facility] Work Phone: NEGATED: Highlighted row has been ruled out! (1 source) Allergy to drug (finding) 2 [facility]; [facility] Work Phone: NEGATED: Highlighted row has been ruled out! (1 source) Allergy to substance (finding) 7 [facility]; [facility] Work Phone: NEGATED: Highlighted row has been ruled out! (1 source) Allergy to drug (finding) 2 [facility]; [facility] Work Phone: Medications Current Medications Medication Drug Class(es) Dates Sig (Normalized) Sig (Original) [id number] 200 actuat albuterol 0.09 mg/actuat metered dose inhaler (20 sources) beta2-Adrenergic Agonist Start: 10-28-2024 Albuterol Sulfate 90 mcg/actuation HFA aerosol inhaler Active 2 NMA INHALATION 4 TIMES DAILY as needed for asthma October 28, 2024 12:00am Start: 02-13-2022 albuterol PRN as needed for shortness of breath or wheezing, 0 Refill(s) Start Date: 02/13/22 Status: Ordered Start: 02-23-2021 Start: 02-23-2021 ProAir HFA 108 (90 Base) MCG/ACT Inhalation Aerosol Solution 2 puff Aerosol Soln qid, prn for 90 days Quantity: 1 {Inhalation} Refills: 3 Ordered: 23-Feb-2021 Fast DO, Rosanna A Fast DO, Rosanna A Start : 23-Feb-2021 Active Comments: Mail order. Start: 02-23-2021 take 2 puff(s) by in halation four times daily as needed ProAir HFA 108 (90 Base) MCG/ACT Inhalation Aerosol Solution 2 puff qid, prn (108 (90 Base) MCG/ACT) Start : 23-Feb-2021 Active Start: 02-18-2020 ProAir HFA 108 (90 Base) MCG/ACT Inhalation Aerosol Solution 2 puff Aerosol Soln qid, prn for 90 days Quantity: 1 {Inhalation} Refills: 3 Ordered: 18-Feb-2020 Fast DO, Rosanna A Fast DO, Rosanna A Start : 18-Feb-2020 Active Comments: Mail order. Start: 03-25-2019 Start: 03-25-2019 Albuterol Sulf ate (2.5 MG/3ML) 0.083% Inhalation Nebulization Solution 1 nepule Nebulized Soln qid, prn for 90 days Quantity: 3 {Box} Refills: 0 Ordered: 25-Mar-2019 Fast DO, Rosanna A Fast DO, Rosanna A Start : 25-Mar-2019 Active Comments: Mail order. Start: 03-25-2019 ProAir HFA 108 (90 Base) MCG/ACT Inhalation Aerosol Solution 2 puff Aerosol Soln qid, prn for 90 days Quantity: 1 {Inhalation} Refills: 3 Ordered: 25-Mar-2019 Fast DO, Rosanna A Fast DO, Rosanan A Start : 25-Mar-2019 Active Comments: Mail order. Start: 03-09-2018 ProAir HFA 108 (90 Base) MCG/ACT Inhalation Aerosol Solution 2 puff Aerosol Soln qid, prn for 30 days Quantity: 1 {Inhaler} Refills: 2 Ordered: 09-Mar-2018 Fast DO, Rosanna A Fast DO, Rosanna A Start : 09-Mar-2018 Active Start: 05-06-2017 Albuterol Sulf ate (2.5 MG/3ML) 0.083% Inhalation Nebulization Solution 1 nepule Nebulized Soln qid, prn for 30 days Quantity: 120 {Nebule} Refills: 1 Ordered: 06-May-2017 Fast DO, Rosanna A Fast DO, Rosanna A Start : 06-May-2017 Active Start: 02-15-2011 take 2.5 mg by inhal ation every four hours as needed albuterol 2.5 mg /3 mL (0.083 %) INHALATION nebulizer solution Use 3 mL via nebulizer every 4 hours as needed. 100 mL 3 02/15/2011 Active Start: 02-15-2011 take 2 puff(s) by in halation every four hours as needed albuterol 90 mcg/Actuation INHALATION Aero Inhale 2 Puffs as instructed every 4 hours as needed. 1 Inhaler 0 02/15/2011 Active Comment on above: Mail order. Use 3 mL via nebuliz er every 4 hours as needed. Inhale 2 Puffs as in structed every 4 hours as needed. citalopram 40 mg oral tablet (20 sources) Serotonin Reuptake Inhibitor Start: 09-09-2022 End: 11-10-2024 take 1 tablet by mouth once daily Citalopram 40 mg tablet Active 40 mg PO daily November 10, 2024 12:00am Start: 01-25-2022 End: 09-09-2022 take 1 tablet by mouth once daily Citalopram (Celexa) 20 mg tablet Discontinued 20 mg PO DAILY September 04, 2022 5:01pm September 09, 2022 5:14pm anxiety/depression labetalol hydrochloride 200 mg oral tablet (11 sources) beta-Adrenergic Elda Start: 11-10-2024 take 1 tablet by mouth three times daily Labetalol 200 mg tablet Active 200 mg PO THREE TIMES A DAY 180 60 0 November 10, 2024 12:00am January 08, 2025 12:00am Start: 03-11-2024 End: 11-10-2024 take 1 tablet by mouth twice daily Labetalol 100 mg tablet Discontinued 100 mg PO TWICE A DAY March 11, 2024 1:00am November 10, 2024 2:37pm hypertension Start: 09-07-2022 take 100 mg by mouth twice daily Labetalol Active 100 MG PO TWICE A DAY 60 September 07, 2022 12:00am nitrofurantoin, macrocrystals 25 mg / nitrofurantoin, monohydrate 75 mg oral capsule (2 sources) Nitrofuran Antibacterial Start: 11-04-2024 take 1 capsule by mouth twice daily at mealtime Nitrofurantoin Monohyd/M-Cryst (Macrobid) 100 mg capsule Active 100 mg PO TWICE A DAY 14 7 0 November 04, 2024 12:00am November 10, 2024 12:00am must administer with a meal/food Pnv No.[id number]-Ep a-Fish 400 mcg-35 mg- 25 mg-5 mg tablet,chewable (9 sources) Start: 05-07-2024 Pnv No.[id number]-Dha-E pa-Fish 400 mcg-35 mg- 25 mg-5 mg tablet,chewable Active 1 {tbl} PO DAILY May 07, 2024 1:00am Start: 05-07-2024 Pnv No.[id number]- [id number]-Olp-Fpw-Fish 400 mcg-35 mg- 25 mg-5 mg tablet,chewable Active {tbl} PO May 07, 2024 1:00am Multivitamins with Vitamin B Complex, Vitamin C, Minerals and L-Methylfolate oral capsule (1 source) Start: 02-13-2022 take 1 capsule by mouth once daily Multivitamins with Vitamin B Complex, Vitamin C, Minerals and L-Methylfolate oral capsule Dose = 1 cap(s), Oral, Daily, 0 Refill(s) Start Date: 02/13/22 Status: Ordered Zuranolone (9 sources) Start: 11-02-2024 take 1 capsule by mouth once daily Zuranolone (Zurzuvae) 20 mg capsule Active 40 mg PO daily 28 14 0 November 02, 2024 11:32am November 15, 2024 12:00am administer with a high fat meal Start: 11-02-2024 End: 11-02-2024 take 1 capsule by mouth once daily Zuranolone (Zurzuvae) 20 mg capsule Discontinued 40 mg PO daily 28 14 0 November 02, 2024 11:29am November 15, 2024 12:00am November 02, 2024 11:32am administer with a high fat meal Start: 11-02-2024 End: 11-02-2024 take 1 capsule by mouth once daily Zuranolone (Zurzuvae) 20 mg capsule Discontinued 40 mg PO daily 28 14 0 November 02, 2024 12:00am November 15, 2024 12:00am November 02, 2024 11:30am administer with a high fat meal Completed/Discontinued Medications Medication Drug Class(es) Dates Sig (Normalized) Sig (Original) acetaminophen 325 mg / oxyCODONE hydrochloride 5 mg oral tablet (16 sources) Opioid Agonist Start: 10-28-2024 End: 11-10-2024 Oxycodone-Acetamino phen (Percocet) 5-325 mg tablet Discontinued 1 {tbl} PO Q4H as needed for pain 20 7 0 October 28, 2024 November 10, 2024 2:25pm Status post delivery History of uterine scar from previous surgery Start: 09-07-2022 End: 09-25-2022 Oxycodone-Acetaminophen (Per cocet) 5-325 mg tablet Discontinued 1 {tbl} PO EVERY 6 HOURS as needed for pain 10 7 0 September 07, 2022 September 25, 2022 2:08pm Status post delivery History of uterine scar from previous surgery amoxicillin 875 mg / clavula christoph 125 mg oral tablet (20 sources) Penicillin-class Antibacterial Start: 07-12-2019 End: 07-19-2019 Start: 07-12-2019 End: 07-19-2019 take 1 tablet by mouth twice daily Amoxicillin-Pot Clavulanate 875-125 MG Oral Tablet 1 (one) Tablet bid for 7 days Quantity: 14 {Tablet} Refills: 0 Ordered: 12-Jul-2019 Fast DO, Rosanna A Fast DO, Rosanna A Start : 12-Jul-2019 End : 19-Jul-2019 Inactive Start: 09-30-2018 End: 10-14-2018 take 1 tablet by mouth twice daily Augmentin 875-125 MG Oral Tablet 1 (one) Tablet bid for 14 days Quantity: 28 {Tablet} Refills: 0 Ordered: 30-Sep-2018 Julia Hill CNP Start : 30-Sep-2018 End : 14-Oct-2018 Inactive Start: 03-09-2018 End: 05-20-2018 Start: 03-09-2018 End: 05-20-2018 take 1 tablet by mouth twice daily Amoxicillin-Pot Clavulanate 875-125 MG Oral Tablet 1 (one) Tablet bid for 0 days Quantity: 20 {Tablet} Refills: 0 Ordered: 20-May-2018 Nany Rubalcava CMA Start : 09-Mar-2018 End : 20-May-2018 Inactive azithromycin 250 mg oral tab let (20 sources) Macrolide Antimicrobial Start: 01-03-2017 End: 01-22-2017 Start: 01-03-2017 End: 01-22-2017 Azithromycin 250 MG Oral Tab let 2 (two) Tablet today then 1 qd for 4 days for 0 days Quantity: 6 {Tablet} Refills: 0 Ordered: 22-Jan-2017 Nany Rubalcava CMA Start : 03-Jan-2017 End : 22-Jan-2017 Inactive Blood-Glucose Meter (11 sources) Start: 07-05-2022 End: 09-25-2022 Blood-Glucose Meter Disconti nued 0 [facility] 1 July 05, 2022 12:00am September 25, 2022 2:07pm As directed- Test fasting and 2 HRs post meals(Total 4x/day) Start: 07-05-2022 Blood-Glucose Meter Active 0 [facility] 1 July 05, 2022 12:00am As directed- Test fasting and 2 HRs post meals(Total 4x/day) Blood-Glucose Meter misc (9 sources) Start: 07-05-2022 End: 09-25-2022 Blood-Glucose Meter misc Dis continued 0 [facility] .MEDSUPPLY 1 0 July 05, 2022 12:00am September 25, 2022 2:07pm As directed- Test fasting and 2 HRs post meals(Total 4x/day) Start: 07-05-2022 End: 09-25-2022 Blood-Glucose Meter misc Dis continued 0 [facility] .[facility]SU[facility] 1 July 05, 2022 12:00am September 25, 2022 2:07pm As directed- Test fasting and 2 HRs post meals(Total 4x/day) brompheniramine maleate 0.4 mg/ml / dextromethorphan hydrobromide 2 mg/ml / pseudoephedrine hydrochloride 6 mg/ml oral solution (2 sources) alpha-Adrenergic Agonist, Uncompetitive H-jggkky-I-aspartate Receptor Antagonist, Sigma-1 Agonist Start: 07-12-2021 End: 08-21-2023 take 5-10 mL by mouth every six hours as needed Kfdpotgcmyqjrkp-Eafentclq-KX (BROMFED DM) 2-30-10 mg/5 mL syrup Take 5-10 ml po q6h prn 120 mL 0 07/12/2021 08/21/2023 Discontinued Comment on above: Take 5-10 ml po q6h prn cholecalciferol 0.05 mg oral tablet (20 sources) Vitamin D Start: 12-03-2016 Start: 12-03-2016 take 2 tablets by [facility] once daily, then take 1 tablet by mouth once daily Vitamin D3 2000 UNIT Oral Tablet 2 (two) Tablet Tablet qd for 0 days Quantity: 60 {Tablet} Refills: 0 Ordered: 03-Jan-2017 Nany Rubalcava CMA Start : 03-Dec-2016 Active Comments: for a month then go to 1 a day Comment on above: for a month then go to 1 a day ciprofloxacin 500 mg oral tablet (20 sources) Quinolone Antimicrobial Start: 02-27-20 End: 03-11-20 Comment on above: may use generic 24 hr clarithromycin 500 mg extended release oral tablet (2 sources) Macrolide Antimicrobial Start: 02-16-20 11 End: 08-21-19 take 1 tablet by mouth once daily clarithromycin XL 500 mg ORAL 24 hr tablet Take 1 tablet by mouth once daily. 10 tablet 0 02/15/2011 08/21/2023 Discontinued Comment on above: Take 1 tablet by [facility] once daily. codeine phosphate 2 mg/ml / guaiFENesin 20 mg/ml oral solution (20 sources) Opioid Agonist Start: 06-09-19 End: 01-23-20 Start: 06-09-2012 End: 01-22-2013 CHERATUSSIN AC, 100-10MG/5ML (Oral Syrup) 1 Teaspoon(s) q hs prn for cough for 0 days Quantity: 6 {Ounce(s)} Refills: 0 Ordered: 22-Jan-2013 Maria Teresa aMrks RN Start : 09-Jun-2012 End : 22-Jan-2013 Inactive desloratadine 5 mg oral tablet (20 sources) Histamine-1 Receptor Antagonist Start: 06-21-2009 End: 08-21-2023 desloratadine(CLARINEX 5 MG TAB) Indications: Unspecified asthma(493.90) one tablet daily prn 90 3 06/21/2009 08/21/2023 Discontinued Comment on above: one tablet daily prn 24 hr desvenlafaxine succinate 50 mg extended release oral tablet (14 sources) Serotonin and Norepinephrine Reuptake Inhibitor Start: 07-16-2019 End: 01-29-2022 Comment on above: may use generic doxycycline hyclate 100 mg oral capsule (8 sources) Tetracycline-class Drug Start: 01-15-2021 End: 01-29-2022 DULoxetine 30 mg delayed release oral capsule (20 sources) Serotonin and Norepinephrine Reuptake Inhibitor Start: 08-30-2021 End: 02-28-2022 take 2 capsules by mouth once daily Duloxetine 30 mg capsule,delayed release(DR/EC) Discontinued 60 mg PO DAILY August 30, 2021 9:24am February 28, 2022 4:38pm Start: 08-30-2021 End: 02-28-2022 take 60 mg by mouth once daily Duloxetine Discontinued 60 MG PO DAILY August 30, 2021 9:24am February 28, 2022 4:38pm Start: 02-21-2021 End: 08-21-2023 take 1 capsule by mouth once daily DULoxetine (CYMBALTA) 60 mg capsule Take 60 mg by mouth once daily. 0 06/14/2021 08/21/2023 Discontinued Start: 07-18-2020 take 1 capsule by [facility] once daily DULoxetine HCl 60 MG Oral Capsule Delayed Release Particles 1 (one) Capsule qd for 30 days Quantity: 30 {QS} Refills: 6 Ordered: 18-Jul-2020 Fast DO, Rosanna A Fast DO, Rosanna A Start : 18-Jul-2020 Active Start: 05-05-2020 take 1 capsule by [facility] once daily DULoxetine HCl 60 MG Oral Capsule Delayed Release Particles 1 (one) Capsule qd for 30 days Refills: 0 Ordered: 05-May-2020 Fast DO, Rosanna A Fast DO, Rosanna A Start : 05-May-2020 Active Start: 06-22-2019 take 1 capsule by [facility] once daily DULoxetine HCl 60 MG Oral Capsule Delayed Release Particles 1 (one) Capsule qd for 90 days Quantity: 90 {Capsule} Refills: 3 Ordered: 22-Jun-2019 Fast DO, Rosanna A Fast DO, Rosanna A Start : 22-Jun-2019 Active Comments: Mail order. Start: 01-21-2019 take 1 capsule by [facility] once daily DULoxetine HCl 60 MG Oral Capsule Delayed Release Particles 1 (one) Capsule qd for 0 days Quantity: 30 {Capsule} Refills: 3 Ordered: 21-Jan-2019 Fast DO, Rosanna A Fast DO, Rosanna A Start : 21-Jan-2019 Active Start: 12-14-2018 take 1 capsule by [facility] once daily DULoxetine HCl 60 MG Oral Capsule Delayed Release Particles 1 (one) Capsule qd for 0 days Quantity: 30 {Capsule} Refills: 0 Ordered: 14-Dec-2018 Fast DO, Rosanna A Fast DO, Rosanna A Start : 14-Dec-2018 Active Start: 11-06-2018 take 1 capsule by [facility] once daily DULoxetine HCl 60 MG Oral Capsule Delayed Release Particles 1 (one) Capsule qd for 0 days Quantity: 30 {Capsule} Refills: 0 Ordered: 06-Nov-2018 Fast DO, Rosanna A Fast DO, Rosanna A Start : 06-Nov-2018 Active Start: 11-06-2018 take 1 capsule by mo ut once daily DULoxetine HCl 60 MG Oral Capsule Delayed Release Particles 1 (one) Capsule qd for 90 days Quantity: 90 {Capsule} Refills: 3 Ordered: 06-Nov-2018 Fast DO, Rosanna A Fast DO, Rosanna A Start : 06-Nov-2018 Active Comments: Mail order. Start: 08-24-2018 take 1 capsule by [facility] once daily DULoxetine HCl 60 MG Oral Capsule Delayed Release Particles 1 (one) Capsule qd for 90 days Quantity: 90 {Capsule} Refills: 3 Ordered: 24-Aug-2018 Nany Rubalcava Start : 24-Aug-2018 Active Comments: Mail order. Start: 06-15-2018 take 1 capsule by [facility] once daily DULoxetine HCl 60 MG Oral Capsule Delayed Release Particles 1 (one) Capsule qd for 0 days Quantity: 30 {Capsule} Refills: 0 Ordered: 15-Jun-2018 Fast DO, Rosanna A Fast DO, Rosanna A Start : 15-Jun-2018 Active Start: 01-07-2018 take 1 capsule by [facility] once daily DULoxetine HCl 60 MG Oral Capsule Delayed Release Particles 1 (one) Capsule qd for 0 days Quantity: 30 {Capsule} Refills: 0 Ordered: 07-Jan-2018 Fast DO, Rosanna A Fast DO, Rosanna A Start : 07-Jan-2018 Active Start: 03-28-2017 End: 08-30-2021 take 1 capsule by mouth once daily Duloxetine 30 MG capsule Discontinued 30 mg PO DAILY March 28, 2017 1:00am August 30, 2021 9:24am Comment on above: Mail order. Take 60 mg by mouth once daily. LOESTRIN 24 FE, 1-20MG-MCG ( Oral Tablet) (20 sources) Estrogen Start: 01-22-2013 End: 05-03-2013 Start: 01-22-2013 End: 05-03-2013 take 1 tablet by mouth once LOESTRIN 24 FE, 1-20MG-MCG (Oral Tablet) 1 Tablet uad for 0 days Quantity: 1 {Package(s)} Refills: 2 Ordered: 22-Jan-2013 Gay Cabezas Start : 22-Jan-2013 End : 03-May-2013 Discontinued Comments: This order discontinued per [facility]. Comment on above: This order discontin ued per [facility]. 60 actuat fluticasone propionate 0.1 mg/actuat / salmeterol 0.05 mg/actuat dry powder inhaler (2 sources) Corticosteroid, beta2-Adrenergic Agonist Start: 008 End: 024 take 1 puff(s) by inhalation twice daily fluticasone/salmete rol(ADVAIR DISKUS 100 MCG-50 MCG/DOSE FOR INHALATION) Indications: Unspecified asthma(493.90) 1 puff bid 1 2 02/10/2008 08/21/2023 Discontinued Comment on above: 1 puff bid 12 hr guaiFENesin 600 mg extended release oral tablet (20 sources) Start: 015 End: 016 12 hr guaiFENesin 1200 mg / pseudoephedrine hydrochloride 120 mg extended release oral tablet (20 sources) alpha-Adrenergic Agonist Start: 013 End: Start: 06-09-2012 End: 01-22-2013 MUCINEX D, 120-1200MG (Oral Tablet Extended Release 12 Hour) 1 Tablet ER 12HR q12hr for 0 days Quantity: 30 {Tablet_ER_12HR} Refills: 0 Ordered: 22-Jan-2013 Maria Teresa Marks RN Start : 09-Jun-2012 End : 22-Jan-2013 Inactive hyoscyamine sulfate 0.125 mg sublingual tablet (10 sources) Start: 06-14-2020 End: 01-29-2022 ibuprofen 800 mg oral tablet (5 sources) Nonsteroidal Anti-inflammatory Drug Start: 10-28-2024 End: 11-10-2024 take 1 tablet by mouth every eight hours as needed for pain Ibuprofen 800 mg tablet Discontinued 800 mg PO Q8H as needed for pain 30 0 October 28, 2024 12:00am November 10, 2024 2:25pm lansoprazole 30 mg delayed release oral capsule (2 sources) Proton Pump Inhibitor Start: 06-16-2010 End: 08-21-2023 take 1 tablet by mouth once daily lansoprazole (PREVACID) 30 mg ORAL capsule Take one(1) tablet daily. 30 capsule 6 06/16/2010 08/21/2023 Discontinued Comment on above: Take one(1) tablet d aily. mometasone furoate 0.05 mg/actuat metered dose nasal spray (2 sources) Corticosteroid Start: 06-21-2009 End: 08-21-2023 take 1 puff(s) nasal route once daily MOMETASONE 50 MCG/ACTUATION NASAL SPRAY Indications: Cough 1 puff each nostril daily 1 2 06/21/2009 08/21/2023 Discontinued Comment on above: 1 puff each nostril daily Multivit 05-Axvi-Spxfgd 1-Dha (Pnv-Dha) 27 mg iron-1 mg -300 mg capsule (20 sources) Start: 02-28-2022 End: 09-25-2022 Multivit 01-Wjrv-Ssinbt 1-Dha (Pnv-Dha) 27 mg iron-1 mg -300 mg capsule Discontinued 1 NMA PO DAILY February 28, 2022 1:00am September 25, 2022 2:08pm Start: 02-28-2022 End: 09-25-2022 Multivit 08-Xhly-Ofzlkz 1-Dh a (Pnv-Dha) 27 mg iron-1 mg -300 mg capsule Discontinued 1 NMA PO DAILY February 28, 2022 1:00am September 25, 2022 2:08pm Start: 02-28-2022 End: 09-25-2022 take 1 capsule by mouth once daily Multivit 88-Jjev-Mpgubi 1-Dha (Pnv-Dha) 27 mg iron-1 mg -300 mg capsule Discontinued 1 CAP PO DAILY February 28, 2022 1:00am September 25, 2022 2:08pm Start: 02-28-2022 take 1 capsule by mo uth once daily Multivit 35-Cfdd-Rbzdjf 1-Dha (Pnv-Dha) 27 mg iron-1 mg -300 mg capsule Active 1 CAP PO DAILY February 28, 2022 1:00am Start: 02-28-2022 Multivit 47-Ir on-Folate 1-Dha (Pnv-Dha) 27 mg iron-1 mg -300 mg capsule Active CAP PO February 28, 2022 1:00am Start: 02-28-2022 Multivit 47-Ir on-Folate 1-Dha (Pnv-Dha) 27 mg iron-1 mg -300 mg capsule Active CAP PO February 28, 2022 12:00am naproxen 500 mg oral tablet (20 sources) Nonsteroidal Anti-inflammatory Drug Start: 12-03-2016 End: 11-10-2017 Start: 06-16-2010 End: 08-21-2023 take 1 tablet by mouth twice daily as needed for pain Naproxen 500 mg tablet Discontinued 500 mg PO TWICE DAILY NEEDED as needed for Pain 30 September 07, 2022 12:00am September 25, 2022 2:08pm Comment on above: 1 tablet 1 hour befo re bedtime NIFEdipine 60 mg osmotic 24 hr extended release oral tablet (20 sources) Dihydropyridine Calcium Channel Elda Start: 08-08-19 End: 09-05-19 take 1 tablet by mouth once daily Nifedipine (Procardia Xl) 60 mg tablet extended release 24hr Discontinued 60 mg PO DAILY 60 August 07, 2022 12:00am September 04, 2022 5:01pm Start: 07-23-2022 End: 08-07-2022 take 1 tablet by mouth once daily Nifedipine (Procardia Xl) 30 mg tablet extended release 24hr Discontinued 30 mg PO DAILY 30 July 23, 2022 12:00am August 07, 2022 1:30pm ofloxacin 3 mg/ml ophthalmic solution (20 sources) Quinolone Antimicrobial Start: 06-09-2017 End: 11-10-2017 Comment on above: may use generic omeprazole 20 mg delayed release oral capsule (20 sources) Proton Pump Inhibitor Start: 03-16-2013 End: 05-10-2014 ondansetron 4 mg disintegrating oral tablet (20 sources) Serotonin-3 Receptor Antagonist Start: 03-09-2024 End: 11-10-2024 take 1 tablet by mouth every eight hours as needed for nausea and vomiting Ondansetron 4 mg tablet,disintegra ting Discontinued 4 mg PO Q8H as needed for nausea and vomiting 60 4 October 26, 2024 3:36pm November 10, 2024 2:25pm Start: 04-29-2022 End: 09-25-2022 take 1 tablet by mouth every four hours as needed for nausea and vomiting Ondansetron 4 mg tablet,disintegrating Discontinued 4 mg PO Q4H as needed for nausea and vomiting 60 2 April 29, 2022 1:00am September 25, 2022 2:08pm Start: 03-28-2017 End: 06-04-2017 oseltamivir 75 mg oral capsu le (20 sources) Neuraminidase Inhibitor Start: 06-09-2019 End: 07-18-2019 Start: 04-27-2012 End: 01-22-2013 pantoprazole 20 mg delayed release oral tablet (20 sources) Proton Pump Inhibitor Start: 01-05-2024 End: 11-10-2024 take 2 tablets by mouth twice daily Pantoprazole 20 mg tablet,delayed release (DR/EC) Discontinued 40 mg PO TWICE A DAY 60 January 05, 2024 8:16am November 10, 2024 2:25pm Start: 07-22-2023 End: 01-05-2024 take 2 tablets by mouth every twelve hours Pantoprazole 20 mg tablet,delayed release (DR/EC) Discontinued 40 mg PO Q12H 60 July 22, 2023 2:50pm January 05, 2024 8:16am Start: 12-05-2022 End: 07-22-2023 take 1 tablet by mouth every twelve hours Pantoprazole 20 mg tablet,delayed release (DR/EC) Discontinued 20 mg PO Q12H 60 December 05, 2022 12:00am July 22, 2023 2:51pm phentermine hydrochloride 37 .5 mg oral capsule (20 sources) Sympathomimetic Amine Anorectic Start: 11-17-2017 End: 12-01-2017 Comment on above: thirty-- bmi 38 predniSONE 10 mg oral tablet (20 sources) Start: 01-15-2021 End: 01-29-2022 Start: 01-15-2021 End: 01-29-2022 predniSONE 10 MG Oral Tablet 3 (three) Tablet pills for 3 days 2 pills for 3 days 1 pill for 3 days with food for 0 days Quantity: 18 {Tablet} Refills: 0 Ordered: 29-Jan-2022 Nany Rubalcava CMA Start : 15-Jan-2021 End : 29-Jan-2022 Inactive Start: 03-09-2018 End: 03-18-2018 Start: 03-09-2018 End: 03-18-2018 PredniSONE 10 MG Oral Tablet 1 (one) Tablet daily for 9 days Quantity: 18 {Tablet} Refills: 0 Ordered: 09-Mar-2018 Fast DO, Rosanna A Fast DO, Rosanna A Start : 09-Mar-2018 End : 18-Mar-2018 Inactive Comments: 3 tablets for 3 days, 2 tablets for 3 days, 1 tablet for 3 days- take it with food in am Start: 05-06-2017 End: 06-04-2017 PredniSONE 10 MG Oral Tablet 3 (three) Tablet pills for 3 days 2 pills for 3 days 1 pill for 3 days with food for 0 days Quantity: 18 {Tablet} Refills: 0 Ordered: 04-Jun-2017 Nany Rubalcava CMA Start : 06-May-2017 End : 04-Jun-2017 Inactive End: 11-18-2016 End: 11-18-2016 PredniSONE 10 MG (21) Oral T ablet Therapy Pack (10 MG (21)) End : 18-Nov-2016 Discontinued Comment on above: 3 tablets for 3 days , 2 tablets for 3 days, 1 tablet for 3 days- take it with food in am vilazodone hydrochloride 40 mg oral tablet (20 sources) Start: 01-07-2018 End: 01-07-2018 Problems Active Problems Problem Classification Problem Date Documented Da te Episodic/Chronic Abdominal pain (20 sources) Epigastric pain; Translations: [Acute abdominal pain] Onset: 03-22-2024 Resolved: 01-29-2022 03-09-2018 Episodic Acute and chronic tonsillitis (20 sources) Amygdalolith; Translations: [Tonsil stone] Resolved: 01-29-2022 09-30-2018 Chronic Comment on above: water pik, gargle fo r multiple tonsil stones Administrative/social admission (15 sources) Medical examinations/reports status; Translations: [Patient encounter status] Resolved: 03-26-2017 03-26-2017 Episodic Allergic reactions (20 sources) Urticaria; Translations: [Urticaria, unspecified] Onset: 07-16-2024 08-21-2023 Episodic Anxiety disorders (20 sources) Anxiety; Translations: [Mixed anxiety and depressive disorder] Onset: 09-30-2024 03-09-2018 Chronic Comment on above: may try to switch to viibryd if insurance covers she will check and let me know to citalopram- if valeria uribe has withdrawal she will let me do ok but hink she will be ok citalopram Asthma (20 sources) Exercise-induced asthma; Translations: [Mild intermittent asthma] Onset: 07-16-2024 03-09-2018 Chronic Comment on above: virus and exercise i nduced Asthma (20 sources) Asthma Benign neoplasm of uterus (20 sources) Uterine leiomyoma; Translations: [Leiomyoma of uterus, unspecified] Episodic Comment on above: fibroids doubled in size in 5 years now 2 that are 2 cm. plan for HSG as pt wants to attempt . Cardiac dysrhythmias (20 sources) Palpitations; Translations: [Tachycardia] Resolved: 01-29-2022 03-09-2018 Episodic Contraceptive and procreative management (14 sources) Patient encounter status; Translations: [Encounter for contraceptive management, unspecified] Onset: 11-08-2024 10-13-2024 Episodic Comment on above: Wants BS with CS Deficiency and other anemia (20 sources) Anemia; Translations: [Anemia, unspecified] 10-13-2024 Episodic Comment on above: add FE, recheck 4 wk Deficiency and other anemia (1 source) Iron deficiency anemia, unspecified; Translations: [Iron deficiency anemia, unspecified] Onset: 11-08-2024 Episodic Esophageal disorders (20 sources) Eosinophilic esophagitis; Translations: [Eosinophilic esophagitis] Onset: 08-11-2024 08-21-2023 Chronic Essential hypertension (20 sources) Hypertensive disorder; Translations: [Essential (primary) hypertension] Onset: 10-26-2024 09-30-2024 Chronic Comment on above: labetalol 100 bid de liver 38 weeks labetalol 100 bid de liver 38 weeks. at 32 wk: twice weekly NST, weekly YULIANA and growth US Q4w Fever of unknown origin (20 sources) Fever with chills; Translations: [Fever] Resolved: 01-29-2022 06-04-2017 Episodic Fluid and electrolyte disorders (20 sources) Dehydration; Translations: [Dehydration] 03-09-2018 Episodic Comment on above: orthos were pos and c/o dizziness upon standing Genitourinary symptoms and ill-defined conditions (20 sources) Abnormal urinalysis; Translations: [Dysuria] Onset: 11-04-2024 03-09-2018 Episodic Headache, including migraine (20 sources) Chronic tension-type headache; Translations: [Chronic tension-type headache, not intractable] 03-09-2018 Chronic Comment on above: better Headache, including migraine (20 sources) Headache; Translations: [Headache] 03-09-2018 Episodic Comment on above: 2 500mg tylenol give n PO with water and 1 can apple juice taken PO get labs may need me ds for prevention of migraine Hemorrhage during ; abruptio placenta; placenta previa (20 sources) Antepartum hemorrhage; Translations: [Hemorrhage in early , unspecified] Onset: 05-06-2024 09-30-2024 Episodic Hypertension complicating ; childbirth and the puerperium (2 sources) Unspecified maternal hypertension, third trimester; Translations: [Unspecified maternal hypertension, unspecified trimester] Onset: 06-03-2024 Chronic Hypertension complicating ; childbirth and the puerperium (20 sources) -induced hypertension; Translations: [Gestational [-induced] hypertension without significant proteinuria, unspecified trimester] 07-23-2022 Episodic Comment on above: procardia XL and lab etalol 07/23/22 to WP to obta in labs, growth scan, and steriods. Immunizations and screening for infectious disease (20 sources) Need for prophylactic vaccination and inoculation against influenza; Translations: [Contact with and (suspected) exposure to other viral communicable diseases] Onset: 09-30-2024 Resolved: 01-29-2022 10-11-2019 Episodic Inflammation, infection of eye (20 sources) Acute conjunctivitis; Translations: [Conjunctivitis, acute] 03-09-2018 Episodic Influenza (20 sources) Influenza due to other identified influenza virus with other respiratory manifestations; Translations: [Influenza due to Influenza A virus subtype H1N1] Resolved: 03-26-2013 03-30-2015 Episodic Malaise and fatigue (20 sources) Fatigue; Translations: [Fatigue] Resolved: 01-29-2022 06-16-2017 Episodic Malposition; malpresentation (20 sources) Breech presentation; Translations: [Maternal care for breech presentation, not applicable or unspecified] 08-20-2022 Episodic Comment on above: plan to repeat scan at 36 weeks in office before scheduling primary vs induction at 37 weeks due to PIH. Menstrual disorders (20 sources) Dysmenorrhea; Translations: [Menometrorrhagia] Resolved: 01-29-2022 03-09-2018 Chronic Comment on above: i will do labs and w ork up. will treat with OCP no contraindication. tell side effects. will follow up on how doing Mood disorders (20 sources) Dysthymic disorder; Translations: [Dysthymia] 03-09-2018 Chronic Comment on above: citalopram Mood disorders (20 sources) Mood disorders Nausea and vomiting (20 sources) Nausea; Translations: [Vomiting] Resolved: 01-29-2022 03-09-2018 Episodic Noninfectious gastroenteritis (20 sources) Acute gastroenteritis; Translations: [Gastroenteritis, acute] 03-09-2018 Episodic Comment on above: rest fluids eat blan d Nonspecific chest pain (20 sources) Chest pain at rest; Translations: [Chest pain at rest] 03-09-2018 Episodic Nutritional deficiencies (20 sources) Vitamin D deficiency; Translations: [Vitamin D deficiency] 03-09-2018 Chronic Other aftercare (2 sources) Encounter for follow-up examination after completed treatment for conditions other than malignant neoplasm; Translations: [Follow-up examination, following surgery, unspecified] 09-11-2022 Episodic Other circulatory disease (20 sources) Elevated blood-pressure reading without diagnosis of hypertension; Translations: [Elevated blood-pressure reading without diagnosis of hypertension] 03-09-2018 Episodic Comment on above: stop pred - if remai ns elevated with your dads cuff maybe the control and 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 BMI 39. abn 1 hr, normal 3 hr GTT in 1 tm. declined 3 tm gct in third trimester- normal home BS checking x 1 week in third trimester. Other complications of (20 sources) Obesity complicating , unspecified trimester; Translations: [Obesity complicating , childbirth, or the puerperium, unspecified as to episode of care or not applicable] Onset: 07-16-2024 Chronic Other complications of (20 sources) Anemia of ; Translations: [Anemia complicating , unspecified trimester] 07-10-2022 Chronic Comment on above: start Fe daily Other complications of (20 sources) Anemia complicating , unspecified trimester; Translations: [Anemia of mother, unspecified as to episode of care or not applicable] 07-10-2022 Chronic Other complications of (2 sources) Obesity complicating , third trimester; Translations: [Obesity complicating , third trimester] Onset: 09-30-2024 Chronic Other complications of (2 sources) Abnormal hematological finding on screening of mother; Translations: [Abnormal hematological finding on screening of mother] Onset: 02-13-2022 Episodic Other complications of (20 sources) High risk ; Translations: [Supervision of high risk , unspecified, unspecified trimester] 04-29-2022 Episodic Comment on above: PRR , MIKE 12/22/24 , Jose J rosario. PC eJssica, Jarek Other complications of (20 sources) Supervision of high risk , unspecified, unspecified trimester; Translations: [Supervision of unspecified high-risk ] Onset: 10-06-2024 Episodic Other complications of (10 sources) bradycardia affecting management of mother; Translations: [Maternal care for abnormalities of the heart rate or rhythm, unspecified trimester, not applicable or unspecified] 10-28-2024 Episodic Other complications of (1 source) Maternal care for abnormalities of the heart rate or rhythm, unspecified trimester, not applicable or unspecified; Translations: [Maternal care for abnormalities of the heart rate or rhythm, unspecified trimester, not applicable or unspecified] Onset: 11-08-2024 Episodic Other complications of (1 source) Supervision of high risk , unspecified, third trimester; Translations: [Supervision of high risk , unspecified, third trimester] Onset: 11-08-2024 Episodic Other connective tissue disease (20 sources) Myalgia; Translations: [Muscle pain] Episodic Other connective tissue disease (20 sources) Muscle pain; Translations: [Myalgia] Resolved: 01-29-2022 03-09-2018 Episodic Comment on above: encoruage cymbalta Other connective tissue disease (20 sources) Disorder of face; Translations: [Other specified disorders of nose and nasal sinuses] Resolved: 05-03-2013 04-12-2016 Episodic Other ear and sense organ disorders (1 source) Ear pressure sensation; Translations: [Other specified disorders of right ear] Episodic Other gastrointestinal disorders (20 sources) Diarrhea; Translations: [Diarrhea] 03-09-2018 Episodic Other gastrointestinal disorders (20 sources) Abdominal bloating; Translations: [Abdominal bloating] Resolved: 01-29-2022 03-09-2018 Episodic Comment on above: she feels more on le ft has history of ovarian cyst on left - try to get bowels going and if not better do further followup Other gastrointestinal disorders (20 sources) Constipation; Translations: [Constipation] Resolved: 01-29-2022 03-09-2018 Episodic Other gastrointestinal disorders (20 sources) Dysphagia; Translations: [Dysphagia, unspecified] 06-26-2022 Episodic Other gastrointestinal disorders (20 sources) Dysphagia, unspecified; Translations: [Dysphagia, unspecified] 06-26-2022 Episodic Other lower respiratory disease (20 sources) Shortness of breath; Translations: [Dyspnea] Episodic Other lower respiratory disease (20 sources) Cough; Translations: [Cough] Resolved: 01-29-2022 03-26-2013 Episodic Other lower respiratory disease (20 sources) Dyspnea; Translations: [SHORTNESS OF BREATH] Resolved: 01-29-2022 03-09-2018 Episodic Other lower respiratory disease (20 sources) Dyspnea at rest; Translations: [Shortness of breath at rest] 11-18-2016 Episodic Other nutritional; endocrine; and metabolic disorders (20 sources) Body mass index 30+ - obesity; Translations: [BMI 36.0-36.9,adult] Resolved: 06-09-2019 03-28-2017 Chronic Other nutritional; endocrine; and metabolic disorders (20 sources) Body mass index 40+ - severely obese; Translations: [BMI 40.0-44.9, adult] 07-18-2019 Chronic Other nutritional; endocrine; and metabolic disorders (20 sources) Abnormal weight gain; Translations: [Abnormal weight gain] 03-09-2018 Episodic Other and delivery including normal (20 sources) ; Translations: [] 01-29-2022 Episodic Comment on above: concern for possible miscarriage she is in touch withob- will repeat levels today elects NIPT with gen yecenia Other upper respiratory disease (20 sources) Seasonal allergy; Translations: [Other seasonal allergic rhinitis] 02-28-2022 Chronic Comment on above: fall/spring Other upper respiratory disease (20 sources) Other seasonal allergic rhinitis; Translations: [Allergic rhinitis, cause unspecified] Chronic Other upper respiratory disease (1 source) Allergic rhinitis due to pollen; Translations: [Allergic rhinitis due to pollen] 08-21-2023 Chronic Other upper respiratory disease (20 sources) Pain in throat Episodic Other upper respiratory disease (1 source) Nasal sinus problem; Translations: [Other specified disorders of nose and nasal sinuses] Episodic Other upper respiratory infections (20 sources) Acute pharyngitis; Translations: [Acute upper respiratory infection] 06-04-2017 Episodic Comment on above: normal exam think vi ral send cx off work rest check for mono with fatigue told her ibuprofen 2 bid with food if swelling occurs again before culture comes back i will add anitobiotic- still may be mono no fever no lean forward and druel= off work this week - rest, test for strep and recurrent mono has all the sx of fl u except canas think likely flu off work this week - rest Residual codes; unclassified (20 sources) Family history of ischemic heart disease; Translations: [Family history of ischemic heart disease] 05-20-2018 Episodic Residual codes; unclassified (17 sources) Needs influenza immunization; Translations: [Need for prophylactic vaccination and inoculation against influenza (Renamed from Need for immunization against influenza)] 11-10-2017 Episodic Residual codes; unclassified (20 sources) Influenza-like symptoms; Translations: [Flu-like symptoms] Resolved: 03-26-2013 03-23-2015 Episodic Residual codes; unclassified (20 sources) Non-smoker; Translations: [Nonsmoker] 01-15-2021 Episodic Residual codes; unclassified (20 sources) Genetic disorder carrier; Translations: [Genetic carrier of other disease] 08-05-2022 Episodic Comment on above: bardet biedl carrier - offered FOB testing and declined. Residual codes; unclassified (20 sources) Genetic carrier of other disease; Translations: [Other genetic carrier status] Onset: 09-30-2024 08-05-2022 Episodic Residual codes; unclassified (7 sources) History of uterine scar from previous surgery; Translations: [Other postprocedural status] Onset: 09-30-2024 09-07-2022 Episodic Residual codes; unclassified (9 sources) Infertile 08-05-2022 Episodic Comment on above: 3 years to conceive Residual codes; unclassified (1 source) 31 weeks gestation of ; Translations: [31 weeks gestation of ] Onset: 11-08-2024 Episodic Residual codes; unclassified (1 source) 28 weeks gestation of ; Translations: [28 weeks gestation of ] Onset: 09-30-2024 Episodic Unclassified (18 sources) Vaccination required; Translations: [Needs influenza immunization] Resolved: 03-26-2013 03-09-2018 Episodic Unclassified (20 sources) Unclassified (20 sources) BMI 36.0-36.9,adult Unclassified (20 sources) Nonsmoker; Translations: [Non-smoker] 03-09-2018 Unclassified (20 sources) Pelvic pain in female Unclassified (20 sources) BMI 38.0-38.9,adult Unclassified (19 sources) Well woman exam (Renamed from Encounter for well woman exam) Unclassified (20 sources) Screening for HPV (human papillomavirus) (Renamed from Encounter for screening for human papillomavirus (HPV)); Translations: [Patient encounter status] 03-09-2018 Unclassified (1 source) Chronic tension headaches Urinary tract infections (20 sources) Urinary tract infectious disease; Translations: [UTI (urinary tract infection)] 07-12-2019 Episodic Comment on above: sx of uti - patient texted burning blood pelvic discomfort Viral infection (20 sources) Mononucleosis syndrome; Translations: [Infectious mononucleosis] Resolved: 01-29-2022 03-09-2018 Episodic Comment on above: rest positive in past (Ap ril) now recurrent symptoms fatigue, stiff neck, sore throat Past or Other Problems Problem Classification Problem Date Documented Da te Episodic/Chronic Headache, including migraine (20 sources) Headache, including migraine; Translations: [Acute headache] 09-30-2018 Comment on above: 2 500mg tylenol give n PO with water and 1 can apple juice taken PO Hepatitis (2 sources) Hepatitis Influenza (19 sources) Influenza Nonmalignant breast conditions (20 sources) Breast lump; Translations: [Breast mass] Onset: 03-22-2024 Resolved: 01-29-2022 01-15-2021 Episodic Other gastrointestinal disorders (1 source) Constipation, unspecified; Translations: [Constipation, unspecified] Onset: 07-16-2024 Episodic Other screening for suspected conditions (not mental disorders or infectious disease) (1 source) Encounter for screening for diabetes mellitus; Translations: [Encounter for screening for diabetes mellitus] Onset: 05-21-2024 Episodic Residual codes; unclassified (1 source) 17 weeks gestation of ; Translations: [17 weeks gestation of ] Onset: 07-16-2024 Episodic Residual codes; unclassified (1 source) 37 weeks gestation of ; Translations: [37 weeks gestation of ] Onset: 05-21-2024 Episodic Unclassified (20 sources) Shortness of breath at rest Unclassified (19 sources) Gastroenteritis, acute Unclassified (19 sources) Abdominal pain, acute Unclassified (19 sources) Conjunctivitis, acute Unclassified (19 sources) Viral infection Unclassified (19 sources) Pharyngitis, acute Unclassified (20 sources) Disorder, 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) Unclassified (19 sources) Palpitation Unclassified (19 sources) Upper respiratory infection, acute Unclassified (19 sources) Elevated Blood Pressure without diagnosis of Hypertension (796.2) Unclassified (20 sources) Vaccine for viral hepatitis Unclassified (19 sources) PHYSICAL EXAM, ROUTINE (V70.0) Unclassified (19 sources) Flu-like symptoms (780.99) Unclassified (19 sources) Congestion (478.19) Unclassified (20 sources) Unspecified Diagnosis 03-09-2018 Unclassified (20 sources) Patient encounter status; Translations: [Physical exam, routine] Resolved: 03-26-2017 03-09-2018 Unclassified (19 sources) Abnormal urinalysis Unclassified (17 sources) Non-smoker; Translations: [Nonsmoker] 05-20-2018 Unclassified (20 sources) Elevated BP without diagnosis of hypertension Unclassified (13 sources) EBV infection Unclassified (13 sources) Tonsil stone Unclassified (7 sources) Exposure to SARS virus Unclassified (12 sources) BMI 40.0-44.9, adult Unclassified (2 sources) Breast mass Unclassified (20 sources) Infertile; Translations: [Infertility] Urinary tract infections (6 sources) Urinary tract infections Results Test Name Value Interpretation Reference Range Facility Urine Cultureon 11-06-2024 [facility] Escherichia coli [place] Count >100,000 Escherichia coli: REACTION Ampicillin Islt JOSE <=2 Ampicillin+Sulbac Islt JOSE <=2 S Cefepime Islt JOSE <=0.12 S cefTRIAXone Islt JOSE <=0.25 S Ciprofloxacin Islt JOSE <=0.06 S B-Lactamase Extended Susc Islt NEG Gentamicin Islt JOSE <=1 S levoFLOXacin Islt JOSE <=0.12 S Meropenem Islt JOSE <=0.25 S Nitrofurantoin Islt JOSE <=16 S Pip+Tazo Islt JOSE <=4 S TMP SMX Islt JOSE <=20 S Normal [facility] Comment on above: Performed By: #### M 100.2200 ####[facility] [address] [place], [address] Laboratory - Chemistry and C hemistry - challengeOrdered By: Park Robles on 11-04-2024 Bilirubin Ql (U) Negative [facility] Ketones Ql (U) Negative [facility] pH (U) 5.0 [pH] [facility] Specific gravity (U) [Rel density] 1.010 [facility] Urobilinogen (U) [Mass/Vol] Negative [facility] Laboratory - Hematology and Cell countsOrdered By: Park Robles on 11-04-2024 Hemoglobin Ql (U) Hemolyzed [facility] Laboratory - Specimen inform ationOrdered By: Park Robles on 11-04-2024 Clarity (U) Cloudy [facility] Color (U) Colorless [facility] Laboratory - UrinalysisOrder ed By: Park Robles on 11-04-2024 Nitrite Ql (U) Negative [facility] Protein Ql (U) Trace [facility] No Panel InformationOrdered By: Park Robles on 11-04-2024 Urine Leukocytes Positive [facility] Urine Non-Hemolyzed Blood Large [facility] Office Visit Reporton 2024 Office Visit Report [facility] [address] [place] [address] OFFICE VISIT Date of Service: 11/04/24 MR#: [id number] Acct: [id number] Patient: CRISTELA SHAH Rep #: [id number] : 1995 Provider: Dr. Gay Gifford DO Age/Sex: 28/F [place] [facility] Status[place] Signed Intake Vital Signs 10/28/24 19:07 11/04/24 11:58 11/04/24 15:18 Height 5 ft 4 in 5 ft 4 in BP 142/94 H 130/85 H Intake Visit Reasons: UTI Chief Complaint: Poss. UTI PP Mammalogist Required: No Is patient in pain?: No Allergies No Known Allergies Allergy (Verified 11/04/24 15:03) Medications ???Medication ???Instructions ???Recorded ???Confirmed ???Type citalopram 40 mg tablet 40 mg PO DAILY depression #30 tabs 09/09/22 11/04/24 Rx pantoprazole 20 mg tablet,delayed 40 mg (2 x 20 mg) PO BID #60 12/2011/04/24 Rx release TABLETS labetalol 100 mg tablet 100 mg PO BID hypertension 4 11/04/24 History PNV 153-FA 400 mcg-om3 35 mg-dha 1 tab PO DAILY 05/07/24 11/04/24 History 25 mg-epa 5 mg-fish oil chew tablet ondansetron 4 mg disintegrating 4 mg PO Q8H PRN nausea and 5 11/04/24 Rx tablet vomiting #60 tabs albuterol sulfate 90 mcg/actuation 2 puff inhalation 4X/DAY PRN ast hma 10/28/24 11/04/24 History aerosol inhaler ibuprofen 800 mg tablet 800 mg PO Q8H PRN pain #30 tabs 11/04/24 Rx oxycodone-acetaminophe n 5 mg-325 1 tab PO Q4H PRN pain 7 days #20 0 10/28/24 11/04/24 Rx mg tablet (Percocet) tabs zuranolone 20 mg capsule (Zurzuvae) 40 mg (2 x 20 mg) PO QDAY 14 da ys 11/02/24 11/04/24 Rx #28 caps nitrofurantoin 100 mg PO BID 7 days #14 caps 10/1911/04/24 Rx monohydrate/macrocryst als 100 mg capsule (Macrobid) Is last menstrual period known: No Post menopausal: No Patient : No Have you fallen in the past year?: No Results POC Urinalysis Dip (Clinic) Office Urine Color Colorless Last Edit by Cande Rogers on 11/04/24 15:18 Office Urine Clarity Cloudy Last Edit by Cande Rogers on 11/04/24 15:18 Office Urine Glucose Last Edit by Cande Rogers on 11/04/24 15:18 Office Urine Ketones Negative Last Edit by Cande Rogers on 11/04/24 15:18 Off Ur Spec [place] 1.010 Last Edit by Cande Rogers on 11/04/24 15:18 Office Urine pH 5.0 Last Edit by Cande Rogers on 11/04/24 15:18 Office Urine Bilirubin Negative Last Edit by Cande Rogers on 11/04/24 15:18 Office Urine Urobilinogen Negative Last Edit by Cande Rogers on 11/04/24 15:18 Office Urine Blood Hemolyzed Last Edit by Cande Rogers on 11/04/24 15:18 Office Urine Blood Hemolyzed Large Last Edit by Cande Rogers on 11/04/24 15:18 Office Urine Protein Trace Last Edit by Cande Rogers on 11/04/24 15:18 Office Urine Nitrate Negative Last Edit by Cande Rogers on 11/04/24 15:18 Off Ur Leukocytes Positive Last Edit by Cande Rogers on 11/04/24 15:18 Large Leukocytes Assessment and Plan Assessment and Plan (1) UTI (urinary tract infection): Status: Acute Plan: starting macrobid (2) Status post section: Status: Acute Comment: lanie 32 weeks 1 day- JV Orders: Orders POC Urinalysis Dip (Clinic) Today LUIZ Medina R30.0 - Dysuria Culture, Urine Today Dr. Gay Gan, DO R30.0 - Dysuria Medications: New nitrofurantoin monohyd/m-cryst 100 mg (Macrobid) must administer with a meal/food 100 mg PO BID 14 caps 0RF [address] Gay Gan, DO Clinical Quality Measures Falls Risk Screening/Assistive Devices Have you fallen in the past year?: No 11/04/24 1629 Date Gay Gan DO Christian Signature: Date (if applicable) CC: Normal [facility] Urine cultureOrdered By: Nadira Pillai on 11-04-2024 Bacteria identified Cx Nom (U) Escherichia coli Abnormal [facility] CBC-Complete Blood Cnt No Di ffon 10-29-2024 Erythrocyte distribution width (RBC) [Ratio] 14.8 % High 11.6-14.6 [facility] Comment on above: Order Comment: Comme nts: Day #1 Reason for Laboratory Test Performed By: #### L 100.0500 #### [facility] [address] [place], [address] Hematocrit (Bld) [Volume fraction] 25.7 % Low 37-47 [facility] Comment on above: Order Comment: Comme nts: Day #1 Reason for Laboratory Test Performed By: #### L 100.0500 #### [facility] [address] [place], [address] Hemoglobin (Bld) [Mass/Vol] 8.0 g/dL Low 12.0-15.0 [facility] Comment on above: Order Comment: Comme nts: Day #1 Reason for Laboratory Test Performed By: #### L 100.0500 #### [facility] [address] [place], [address] MCH (RBC) [Entitic mass] 25.1 pg Low 27.0-32.0 [facility] Comment on above: Order Comment: Comme nts: Day #1 Reason for Laboratory Test Performed By: #### L 100.0500 #### [facility] [address] [place], [address] MCHC (RBC) [Mass/Vol] 31.1 g/dL Low 32-36 [facility] Comment on above: Order Comment: Comme nts: Day #1 Reason for Laboratory Test Performed By: #### L 100.0500 #### [facility] [address] [place], [address] MCV (RBC) [Entitic vol] 80.6 fL Low 81-99 [facility] Comment on above: Order Comment: Comme nts: Day #1 Reason for Laboratory Test Performed By: #### L 100.0500 #### [facility] [address] [place], [address] Platelet mean volume (Bld) [Entitic vol] 11.7 fL Normal 6.2-12.0 [facility] Comment on above: Order Comment: Comme nts: Day #1 Reason for Laboratory Test Performed By: #### L 100.0500 #### [facility] [address] [place], [address] Platelets (Bld) [#/Vol] 201 10*3/uL Normal 150-450 [facility] Comment on above: Order Comment: Comme nts: Day #1 Reason for Laboratory Test Performed By: #### L 100.0500 #### [facility] [address] [place], [address] RBC (Bld) [#/Vol] 3.19 10*6/uL Low 4.2-5.4 [facility] Comment on above: Order Comment: Comme nts: Day #1 Reason for Laboratory Test Performed By: #### L 100.0500 #### [facility] [address] [place], [address] RDW SD 43.5 fl Normal 35.1-43.9 [facility] Comment on above: Order Comment: Comme nts: Day #1 Reason for Laboratory Test Performed By: #### L 100.0500 #### [facility] [address] [place], [address] WBC (Bld) [#/Vol] 14.0 10*3/uL High 4.4-11.0 [facility] Comment on above: Order Comment: Comme nts: Day #1 Reason for Laboratory Test Performed By: #### L 100.0500 #### [facility] [address] [place], [place], [address] Erythrocyte distribution wid th ratioOrdered By: Gay Pillai on 10-29-2024 Erythrocyte distribution width (RBC) [Ratio] 14.8 % High 11.6-14.6 [facility] Erythrocyte distribution wid th standard deviationOrdered By: Gay Pillai on 10-29-2024 Erythrocyte distribution width (RBC) [Ratio] 43.5 fl 35.1-43.9 [facility] Hematocrit Auto (Bld) [Volum e fraction]Ordered By: Gay Pillai on 10-29-2024 Hematocrit (Bld) [Volume fraction] 25.7 % Low 37-47 [facility] Hemoglobin measurementOrdere d By: Gay Pillia on 10-29-2024 Hemoglobin (Bld) [Mass/Vol] 8.0 g/dL Low 12.0-15.0 [facility] MCV (mean corpuscular volume ) determinationOrdered By: Gay Pillai on 10-29-2024 MCV (RBC) [Entitic vol] 80.6 fL Low 81-99 [facility] Mean corpuscular hemoglobin (MCH) determinationOrdered By: Gay Pillai on 10-29-2024 MCH (RBC) [Entitic mass] 25.1 pg Low 27.0-32.0 [facility] Mean corpuscular hemoglobin concentration (MCHC) determinationOrdered By: Gay Pillai on 10-29-2024 MCHC (RBC) [Mass/Vol] 31.1 g/dL Low 32-36 [facility] Mean platelet volume determi nationOrdered By: Gay Pillai on 10-29-2024 Platelet mean volume (Bld) [Entitic vol] 11.7 fL 6.2-12.0 [facility] Platelet countOrdered By: Talat Pillai on 10-29-2024 Platelets (Bld) [#/Vol] 201 10*3/uL 150-450 [facility] RBC Auto (Bld) [#/Vol]Ordere d By: Gay Pillai on 10-29-2024 RBC (Bld) [#/Vol] 3.19 10*6/uL Low 4.2-5.4 [facility] White blood cell (WBC) count Ordered By: Gay Clementschris on 10-29-2024 WBC (Bld) [#/Vol] 14.0 10*3/uL High 4.4-11.0 [facility] Absolute lymphocyte countOrd ered By: Gay Clementschris on 10-28-2024 Lymphocytes Auto (Unsp spec) [#/Vol] 2.84 10*3/uL 0.83-4.51 [facility] Absolute neutrophil countOrd ered By: Gay Freya on 10-28-2024 Neutrophils (Bld) [#/Vol] 7.8 10*3/uL High 2.0-7.7 [facility] Automated lymphocyte count a s percentage of total leukocytesOrdered By: Gay Freya on 10-28-2024 Lymphocytes/100 WBC Auto (Unsp spec) 23.2 % 19-41 [facility] Basophil percentageOrdered B y: Gay Clementschris on 10-28-2024 Basophils/100 WBC (Bld) 0.3 % 0-1 [facility] Comment on above: Performed By: #### Tootie GILL, L100.0100 ####[facility] [address] [place], [place], [address] CBC W/Diff, Automatedon 10-19 0-2024 Absolute Lymph 2.84 X10 3/uL Normal 0.83-4.51 [facility] Comment on above: Performed By: #### Tootie GILL, L100.0100 ####[facility] [address] [place], [place], [address] Absolute Neut 7.8 X10 3/uL High 2.0-7.7 [facility] Comment on above: Performed By: #### Tootie GILL, L100.0100 ####[facility] [address] [place], [address] Erythrocyte distribution width (RBC) [Ratio] 15.1 % High 11.6-14.6 [facility] Comment on above: Performed By: #### B BRIDGET, L100.0100 ####[facility] [address] [place], [address] Hematocrit (Bld) [Volume fraction] 31.9 % Low 37-47 [facility] Comment on above: Performed By: #### B BRIDGET, L100.0100 ####[facility] [address] [place], [address] Hemoglobin (Bld) [Mass/Vol] 10.0 g/dL Low 12.0-15.0 [facility] Comment on above: Performed By: #### Tootie GILL, L100.0100 ####[facility] [address] [place], [address] IG% 0.600 Normal 0.0-0.9 [facility] Comment on above: Result Comment: IG% - Immature Granulocytes (promyelocytes, myelocytes and metamyelocytes) > 1% indicates that a LEFT SHIFT is Present. Performed By: #### Tootie GILL, L100.0100 ####[facility] [address] [place], [address] Lymphocytes/100 WBC (Bld) 23.2 % Normal 19-41 [facility] Comment on above: Performed By: #### Tootie GILL, L100.0100 ####[facility] [address] [place], [address] MCH (RBC) [Entitic mass] 24.8 pg Low 27.0-32.0 [facility] Comment on above: Performed By: #### Tootie GLIL, L100.0100 ####[facility] [address] [place], [address] MCHC (RBC) [Mass/Vol] 31.3 g/dL Low 32-36 [facility] Comment on above: Performed By: #### Tootie GILL, L100.0100 ####[facility] [address] [place], [address] MCV (RBC) [Entitic vol] 79.2 fL Low 81-99 [facility] Comment on above: Performed By: #### Tootie GILL, L100.0100 ####[facility] [address] [place], [address] Nucleated RBC (Bld) [#/Vol] 0 10*3/uL Normal 0-5 [facility] Comment on above: Performed By: #### Tootie GILL, L100.0100 ####[facility] [address] [place], [address] Platelet mean volume (Bld) [Entitic vol] 12.0 fL Normal 6.2-12.0 [facility] Comment on above: Performed By: #### Tootie GILL, L100.0100 ####[facility] [address] [place], [address] Platelets (Bld) [#/Vol] 247 10*3/uL Normal 150-450 [facility] Comment on above: Performed By: #### Tootie GILL, L100.0100 ####[facility] [address] [place], [address] RBC (Bld) [#/Vol] 4.03 10*6/uL Low 4.2-5.4 [facility] Comment on above: Performed By: #### Tootie GILL, L100.0100 ####[facility] [address] [place], [address] RDW SD 43.6 fl Normal 35.1-43.9 [facility] Comment on above: Performed By: #### Tootie GILL, L100.0100 ####[facility] [address] [place], [address] WBC (Bld) [#/Vol] 12.2 10*3/uL High 4.4-11.0 [facility] Comment on above: Performed By: #### B TS, L100.0100 ####[facility] [address] [facility] [place], [address] Discharge Instructionon 10-19 Discharge Instruction [facility] Medical Records Department [address] [place] [address] Instructions for Home/Discharge Instructions 10/28/24 1848 MR#: [id number] Acct: [id number] Name: CRISTELA SHAH Rep #: [id number] : 1995 28 From: Gay Gan DO PCP: Dr. Rosanna Scales DO Status:ADM IN Discharge Instructions Diet Discharge Diet: No restrictions DC O2, CPAP, BIPAP needs Home O2 Discharge instructions: No Dressing / Incision Discharge Activity: May Not Drive (for 2 weeks or while taking narcotic pain medications.), May Shower and May Take a Tub Bath (in 7 days.) May resume sexual activity in: 4-6 weeks Weight Bearing Status: Full weight bearing Lifting Restrictions: 20 pounds Dressing / Incision Call your doctor if your incision/area has: Continuous Slow Oozing, Sudden Increased Bleeding, Increased Pain/ Swelling, Increased Redness and Foul Smelling Discharge Call your doctor if you observe: Fever of 101 or Higher and Using more than 1 pad per hour Suture Line Care: Avoid Pulling/Pushing and Avoid Pinching/Bending Cleanse incision/area with: Soap Water and Keep Dressing Clean Dry Follow Up Care Please Follow Up With: Gay Gan DO When: Call [phone] to make an appointment for an incision check in 1-2 weeks. Test Results: Test results from this visit will be discussed in further detail at your follow-up appointment, if applicable. Discharge Plan Admission Admit Date/Time: 10/28/24 17:03 Primary Reason for Your Visit: section Attending Provider: Gay Gan Primary Care Provider: Rosanna Scales Consulting Providers: Jaqueline Hutchison APPRENTICE ELECTRICIAN Discharge Orders/Prescriptions Prescriptions: New ibuprofen 800 mg tablet 800 mg PO Q8H PRN (Reason: pain) Qty: 30 0RF oxycodone-acetaminophe n [Percocet] 5-325 mg tablet 1 tab PO Q4H PRN (Reason: pain) 7 Days Qty: 20 0RF Continued PNV no.872-RT-ve3-dha-epa- fish 400 mcg-35 mg- 25 mg-5 mg tablet,chewable PO labetalol 100 mg tablet 100 mg PO BID citalopram 40 mg tablet 40 mg PO DAILY Qty: 30 12RF pantoprazole 20 mg tablet,delayed release (DR/EC) 40 mg PO BID Qty: 60 5RF ondansetron 4 mg tablet,disintegrating 4 mg PO Q8H PRN (Reason: nausea and vomiting) Qty: 60 4RF Referrals / Follow Up: Rosanna Scales DO [Primary Care Provider] - 10/28/24 1850 Gay Gan DO CC: APPRENTICE ELECTRICIAN-C Jaqueline Hutchison; Dr. Rosanna Scales DO Signed Normal [facility] Eosinophil percentageOrdered By: Gay Pillai on 10-28-2024 Eosinophils/100 WBC (Bld) 3.0 % 0-5 [facility] Comment on above: Performed By: #### B TS, L100.0100 ####[facility] [address] [facility] [place], [address] H AND P Exam - OB/GYNon 10-19-2024 H&P Exam - AERONAUTICAL RESEARCH ENGINEER [facility] Medical Records Department [address] [place] [address] H P Exam - AERONAUTICAL RESEARCH ENGINEER 10/28/24 1806 MR#: [id number] Acct: [id number] Name: CRISTELA SHAH Rep #: [id number] : 1995 28 From: Gay Gan DO PCP: Dr. Rosanna Scales DO Status:ADM IN Location: GO980-5 HPI - General General Date of Admission: 10/28/24 HPI Narrative CRISTELA SHAH, is a 28 y/o @ 32 weeks 1 day who presented to ultrasound this afternoon for a routing growth scan. While in the ultrasound department the tech noted that the heart rate was in the 70's. The patient was brought to L D and immediately brought to the OR. The heart rate was noted to be 150's so she was walked to the labor room for further observation. While in the labor room the heart rate went down to the 70's again and stayed there. This was confirmed by ultrasound and an LANIE was called. Maternal Data Information MIKE Calculator Estimated Delivery Date Method Current WG Current Estimate 12/22/24 LMP (Certain) 32w 1d Other Estimates 12/24/24 Ultrasound #1 31w 6d PFSH PFSH Medical History Supervision of high risk , antepartum PONV (postoperative nausea and vomiting) Anemia Anxiety Wears contact lenses Wears glasses Low iron Heartburn Non-smoker Hypertension Severely increased blood pressure and swelling during Breech presentation Gestational hypertension Obesity affecting Abnormality of hormone Depression Home Medications ???Medication ???Instructions ???Recorded ???Last Taken ???Type citalopram 40 mg tablet 40 mg PO DAILY depression #30 tabs 09/09/22 Unknown Rx pantoprazole 20 mg tablet,delayed 40 mg (2 x 20 mg) PO BID #60 12/20 10/12 Unknown Rx release TABLETS labetalol 100 mg tablet 100 mg PO BID 03/11/24 Unknown His tory PNV 153-FA 400 mcg-om3 35 mg-dha tab PO 05/07/24 Unknown History 25 mg-epa 5 mg-fish oil chew tablet ondansetron 4 mg disintegrating 4 mg PO Q8H PRN nausea and 5 Unknown Rx tablet vomiting #60 tabs Allergy/AdvReac Type Severity Reaction Status Date / Time No Known Allergies Allergy Verified 10/26/24 14:01 Family History Father Hypertension Surgical History History of esophagogastroduodenos copy (EGD) Status post section Social History adopted: No household members: spouse and children housing: house number of children: 1 current occupational status: employed current occupation: [employer] current occupational exposures/hazards: No pets and animals: Yes (2) pets and animals: dog(s) history of recent travel: Yes (- February) out of state: Yes out of country: No sexually active: Yes Smoking Status: Never smoker alcohol intake: current details: social not while substance use type: does not use well-balanced diet: daily or most days caffeine: Yes Type: carbonated beverages Number of servings: 1 eating out: 4 or more times/week during the past year weight has: decreased > 10 lbs what type of physical activity do you participate in: none deloris/gnosticist: Restoration seatbelt use: always do you feel safe at home: Yes 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 Date Name GA/Weeks Outcome Route Bth Weight Gen [facility] 09/[facility]/22 Jessica 37 live - full term 6lbs Male spinal [facility] Delivery Date: 09/04/22 Last Updated by: Abigail Urbina Breech Visit Details Expected Delivery Route/Plan prior cs. needs delivered at 38 weeks. but if goes into labor on her own wants to . RLTCS BS with JV Plans Covid status: [] Flu vaccine: [] Tdap vaccine: given Rhogam: na LARC form signed: yes Problem list reviewed and updated with the most current plan of care details and appropriate orders placed. Relevant counseling for the gestational age provided. Continue routine care and follow up unless otherwise noted in visit notes/problem list details OB Flowsheet Initial Weight: Not Recorded Date -???-???-???-???-???-? ??-???-???-???-???-??? -???- EGA Weight BP Urine Prot -???-???-???-???-???-? ??-???-???-???-???-??? -???- Glucose FHR FuHt Pres Dilation -???-???-???-???-???-? ??-???-???-???-???-??? -???- Effaced St Visit Note 05/21/24 -???-???-???-???-???-? ??-???-???-???-???-??? -??? (more content not included)... Normal [facility] Immature granulocytes/100 WB C Auto (Bld)Ordered By: Gay Pillai on 10-28-2024 Immature granulocytes/100 WBC (Bld) 0.600 % 0.0-0.9 [facility] Comment on above: IG% - Immature Granu locytes (promyelocytes, myelocytes and metamyelocytes) > 1% indicates that a LEFT SHIFT is Present. International normalized rat io (INR) calculationOrdered By: Gay Pillai on 10-28-2024 INR Coag (Bld) [Relative time] 0.9 {INR} [facility] Monocyte percentageOrdered B y: Gay Pillai on 10-28-2024 Monocytes/100 WBC (Bld) 9.2 % 0-10 [facility] Comment on above: Performed By: #### B , L100.0100 ####[facility] [address] [place], [address] Neutrophil percentageOrdered By: Gay Pillai on 10-28-2024 Neutrophils/100 WBC (Bld) 63.7 % 47-70 [facility] Comment on above: Performed By: #### B , L100.0100 ####[facility] [facility] [id number] [place], [address] Nucleated red blood cell per centageOrdered By: Gay Pillai on 10-28-2024 Nucleated RBC/100 WBC (Bld) [Ratio] 0 % 0-5 [facility] OB Limited With Biometricson 10-28-2024 OB Limited With Biometrics [facility] Imaging Services [address] [place] [address] OB Limited With Biometrics MR#: [id number] Acct: [id number] Name: CRISTELA SHAH Rep #: [id number] : 1995 F 28 From: Bk Mar MD PCP: Dr. Rosanna Scales DO Status: ADM IN Study: OB Limited With Biometrics Date of Exam: 10/28 Exam# [id number] Ordering Dr: Jaqueline Hutchison NP, NP -Wilber PROCEDURE: OB LIMITED WITH BIOMETRICS 10/28/2024 REASON FOR EXAM: GROWTH 32 WEEKS TECHNIQUE: OB LIMITED WITH BIOMETRICS COMPARISON: 08/24/2022. FINDINGS Intrauterine . BPD: 32 weeks 5 days. 61%. OFD: 33 weeks 6 days. 96%. HC: 33 weeks 2 days. 44%. AC: 32 weeks 5 days. 66%. FL: 30 weeks 0 days. 3%. Cephalic presentation. heart rate of 73-75 beats per minute. Of 8.0 cm. Posteriorly located placenta. No evidence of previa. Estimated weight of 1886 g. MIKE by ultrasound: 12/19/2024. MIKE by LMP: 12/22/2024. US/OB Limited With Biometrics IMPRESSION: heart rate of 73-75 beats per minute. The technologist called the office about the low heart rate and she was sent to the labor and delivery. Femur length of 3%. Reading Location: [id number] CC: LUIZ Hutchison; Dr. Rosanna Scales DO Fuel Cell Designer: Signed Normal [facility] Operative Reporton Operative Report [facility] Medical Records Department [address] [place] [address] Operative Report 10/28/24 1832 MR#: [id number] Acct: [id number] Name: CRISTELA SHAH Rep #: [id number] : 1995 28 From: Gay Gan DO PCP: Dr. Rosanna Scales DO Status:ADM IN Location: [id number] Assessment Plan (1) bradycardia, antepartum condition or complication: (2) Supervision of high risk , antepartum: COMMENT: PRR , MIKE 12/22/24 , Girl -reagan. WALLACE Jessica, Jarek (3) Anemia: QUALIFIERS: Anemia type: iron deficiency Iron deficiency anemia type: unspecified iron deficiency Qualified Code(s): D50.9 - Iron deficiency anemia, unspecified COMMENT: add FE, recheck 4 wk (4) Contraception management: COMMENT: Wants BS with CS (5) Obesity affecting : QUALIFIERS: Trimester: third trimester Obesity type affecting : unspecified obesity Qualified Code(s): O99.213 - Obesity complicating , third trimester COMMENT: HgbA1c (6) Hypertension: QUALIFIERS: Hypertension type: primary hypertension Qualified Code(s): I10 - Essential (primary) hypertension COMMENT: labetalol 100 bid deliver 38 weeks. at 32 wk: twice weekly NST, weekly YULIANA and growth US Q4w (7) Hx of section: COMMENT: Gestational HTN breech. C/S 12/03/24 JV. (8) : QUALIFIERS: Weeks of gestation: 31 weeks Qualified Code(s): Z3A.31 - 31 weeks gestation of COMMENT: elects NIPT with gender Maternal Data Information MIKE Calculator Estimated Delivery Date Method Current WG Current Estimate 12/22/24 LMP (Certain) 32w 1d Other Estimates 12/24/24 Ultrasound #1 31w 6d Gestational age: 32 weeks 1 day Doctor Who Attended Delivery: Zayra Chambers Operative Report (OB) Details Procedure Type: low transverse Date of Procedure: 10/28/24 Procedure Start Time: 17:08 Time of Delivery: 17:10 Pre-Operative Diagnosis: Breech and Other ( bradycardia ) Other Pre-Operative diagnosis: prior section Post-Operative Diagnosis: Same as Pre-operative diagnosis Classification: Stat Type of Anesthesia: General Antibiotic Given: Ancef 3 grams IV x1 Drain: Vaughn to straight drain Estimated Blood Loss: 1200cc Findings Description of surgery: The patient was brought emergently to the operating room after a bradycardia of 70 bpm was noted on the heart rate monitor and confirmed on ultrasound. Prior to this she was also seen in ultrasound with a bradycardia in the 70s. The decision was made to proceed with a emergency . General anesthesia was administered and after a Betadine splash and a very quick chlorhexidine wash over the incision while the IVs were being placed a low transverse incision was made with a scalpel. The fascia was nicked in the midline with the scalpel and carried laterally with the scalpel of the medial rectus muscles were also incised, sparing the lateral rectus muscles. The remaining rectus muscles were and the peritoneum was entered bluntly a bladder blade was placed into the abdomen the lower uterine segment was noted to have a 4 cm uterine window. An incision was made superior to this using the scalpel and extended laterally manually. Initially clear fluid returned upon entering the uterus the presenting part of the fetus was the legs and buttocks. Attempt was made to reach into the uterus and find the infant's head to deliver cephalad, however this was unsuccessful and the infant was delivered in the breech manner. The buttocks were delivered first followed by the legs and the torso the torso was rotated to the left and the right to dislodge the shoulders. A nuchal cord was noted at this time the head was delivered atraumatically and the cord was clamped and cut the was handed over to the waiting scientist immediately. The placenta was delivered manually and cord gases were ordered. The uterus was noted to be boggy and with the lack of Pitocin hanging immediately uterine massage was performed TXA Hemabate and Pitocin was ordered the uterine incision was closed with a #1 Vicryl suture in a running locked fashion followed by a second layer of a #1 Monocryl suture. There was some areas of oozing on the incision that remained and further #1 Monocryl was used in [id number] fashion to create excellent hemostasis. Hemoblast was also placed over the uterine incision to ensure hemostasis. The uterus was returned to the abdomen the gutters were cleared of all clots and debris. Peritoneum was closed with a 3-0 Vicryl. The fascia was closed with a strata fix PDS suture. The subcutaneous tissue was irrigated. And closed with a 3-0 Vicryl. The skin was closed with a 4-0 Monocryl subcuticular stitch. At this time the infant is being resuscitated by the scientist and Apgars are pending. T (more content not included)... Normal [facility] Prothrombin Time w/INRon INR Coag (PPP) [Relative time] 0.9 {INR} Normal [facility] Comment on above: Performed By: #### L 300.3900 #### [facility] Laboratory [address] [place], [address] PT Coag (PPP) [Time] 12.5 s Normal 11.7-14.9 [facility] Comment on above: Performed By: #### L 300.3900 #### [facility] [address] [place], [address] Prothrombin timeOrdered By: Gay Pillai on 10-28-2024 PT Coag (PPP) [Time] 12.5 s 11.7-14.9 [facility] Syphilis Antibodieson 2024 Syphilis Abs Non-Reactive Normal Nonreactive [facility] Comment on above: Performed By: #### L 509.8002 #### [facility] [address] [place], [address] Type AND Screenon 10-28-2024 Ab SCREEN GEL Negative Normal [facility] Comment on above: Order Comment: SC-SE CTION Performed By: #### B TS, L100.0100 ####[facility] [id number] [place], [address] Laboratory - Chemistry and C hemistry - challengeOrdered By: Jaqueline Hutchison on 10-26-2024 Glucose Ql (U) Negative [facility] Laboratory - UrinalysisOrder ed By: Jaqueline Hutchison on 10-26-2024 Protein Ql (U) Negative [facility] OB Biophysical Prof W/O NSTo n 10-26-2024 OB Biophysical Prof W/O NST [facility] Imaging Services [address] [place] [address] OB Biophysical Prof W/O NST MR#: [id number] Acct: [id number] Name: CRISTELA SHAH Rep #: [id number] : 1995 F 28 From: Boris appiah MD PCP: Dr. Rosanna Scales DO Status: REG CLI Study: OB Biophysical Prof W/O NST Date of Exam: 12/13 Exam# [id number] Ordering Dr: Jaqueline Hutchison NP, NP PROCEDURE: OB BIOPHYSICAL PROF W/O NST 10/26/2024 REASON FOR EXAM: WELL BEING TECHNIQUE: OB BIOPHYSICAL PROF W/O NST COMPARISON: None FINDINGS Number: 1 Position: Vertex Placental Position: Posterior and not low-lying. Placental Abnormalities: No evidence of previa. ESTIMATED GESTATIONAL AGE: Baseline: 31 weeks and 6 days ESTIMATED DATE OF DELIVERY: Baseline: December 22, 2024. BIOPHYSICAL ASSESSMENT: Amniotic Fluid Volume: 6.8 cm x 4.6 cm Amniotic Fluid Index: 10.4 (8-24 cm normal range) Cardiac Motion: 164 beats per minute (average) Trunk and Limb Motion: Present. Biophysical profile: Breathing movements: 2 Gross body movements: 2 tone: 2 Amniotic fluid volume: 2 Total score: 8/8 US/OB Biophysical Prof W/O NST IMPRESSION: Normal biophysical profile. Reading Location: [place] [address] CC: LUIZ Hutchison; Dr. Rosanna Scales DO Fuel Cell Designer: Signed Normal [facility] Drawer In Jacquard Loom Office Visit Reporton 10-26-2024 Drawer In Jacquard Loom Office Visit Report [facility] [address], [address] [place] [address] OFFICE VISIT Date of Service: 10/26/24 MR#: [id number] Acct: [id number] Name: CRISTELA SHAH Rep #: [id number] : 1995 Provider: LUIZ horner Age/Sex: 28/F [place] [facility] [place]: Signed Intake Vital Signs 10/13/24 13:49 10/26/24 13:58 10/26/24 14:04 Height 5 ft 4 in 5 ft 4 in 5 ft 4 in Weight: 249 lb BMI 42.7 BP 130/72 H 127/83 H Intake Visit Reasons: 32 WK NST ONLY Mammalogist Required: No Is patient in pain?: No Allergies No Known Allergies Allergy (Verified 10/26/24 14:01) Medications ???Medication ???Instructions ???Recorded ???Confirmed ???Type citalopram 40 mg tablet 40 mg PO DAILY depression #30 tabs 09/09/22 10/26/24 Rx pantoprazole 20 mg tablet,delayed 40 mg (2 x 20 mg) PO BID #60 12/2010/26/24 Rx release TABLETS labetalol 100 mg tablet 100 mg PO BID 03/11/24 10/26/24 Hi story PNV 153-FA 400 mcg-om3 35 mg-dha tab PO 05/07/24 10/26/24 History 25 mg-epa 5 mg-fish oil chew tablet ondansetron 4 mg disintegrating 4 mg PO Q8H PRN nausea and 5 10/26/24 Rx tablet vomiting #60 tabs Last Menstrual Period: 03/17/24 Zika: Zika virus screening: Negative : No PFSH PFSH Medical History Supervision of high risk , antepartum PONV (postoperative nausea and vomiting) Anemia Anxiety Wears contact lenses Wears glasses Low iron Heartburn Non-smoker Hypertension Severely increased blood pressure and swelling during Breech presentation Gestational hypertension Obesity affecting Abnormality of hormone Depression Surgical History History of esophagogastroduodenos copy (EGD) Status post section Family History Father Hypertension Social History adopted: No household members: spouse and children housing: house number of children: 1 current occupational status: employed current occupation: [employer] current occupational exposures/hazards: No pets and animals: Yes (2) pets and animals: dog(s) history of recent travel: Yes (- February) out of state: Yes out of country: No sexually active: Yes Smoking Status: Never smoker alcohol intake: current details: social not while substance use type: does not use well-balanced diet: daily or most days caffeine: Yes Type: carbonated beverages Number of servings: 1 eating out: 4 or more times/week during the past year weight has: decreased > 10 lbs what type of physical activity do you participate in: none deloris/gnosticist: Restoration seatbelt use: always do you feel safe at home: Yes 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 Date Name GA/Weeks Outcome Route Bth Weight Infant Gen Labor Lgth Anesthesia Del Locatn Provider FOB 09/04/22 Jessica 37 live - full term 6lbs Male spinal [facility] Delivery Date: 09/04/22 Last Updated by: Abigail Reed HPI 32 WK NST ONLY Details: CRISTELA SHAH is a 28 year old who presents for routine OB visit. OB Visit MIKE Calculator Estimated Delivery Date Method Current WG Current Estimate 12/22/24 LMP (Certain) 31w 6d Other Estimates 12/24/24 Ultrasound #1 31w 4d Expected Delivery Route/Plan prior cs. needs delivered at 38 weeks. but if goes into labor on her own wants to . RLTCS BS with JV Specific Issue/Plans Covid status: [] Flu vaccine: [] Tdap vaccine: given Rhogam: na LARC form signed: yes Problem list reviewed and updated with the most current plan of care details and appropriate orders placed. Relevant counseling for the gestational age provided. Continue routine care and follow up unless otherwise noted in visit notes/problem list details Initial Weight: Not Recorded Date -???-???-???-???-???-? ??-???-???-???-???-??? -???- EGA Weight BP Urine Prot -???-???-???-???-???-? ??-???-???-???-???-??? -???- Glucose FHR FuHt Pres Dilation -???-???-???-???-???-? ??-???-???-???-???-??? -???- Effaced St Visit Note 05/21/24 -???-???-???-???-???-? ??-???-???-???-???-??? -???- 9w 2d 226 lb 6 oz 136/88 -???-???-???-???-???-? ??-???-???-???-???-??? -???- 184 -???-???-???-???-???-? ??-???-???-???-???-??? -???- JV- CRL cons istent with LMP. declines nipt. taking labetalol. (more content not included)... Normal [facility] Laboratory - Chemistry and C hemistry - challengeOrdered By: Jaqueline Hutchison on 10-13-2024 Glucose Ql (U) Negative [facility] Laboratory - UrinalysisOrder ed By: Jaqueline Hutchison on 10-13-2024 Protein Ql (U) Negative [facility] Drawer In Jacquard Loom Office Visit Reporton 10-13-2024 Drawer In Jacquard Loom Office Visit Report [facility] [address], [address] [place] [address] OFFICE VISIT Date of Service: 10/13/24 MR#: [id number] Acct: [id number] Name: CRISTELA SHAH Rep #: [id number] : 1995 Provider: LUIZ horner Age/Sex: 28/F [place] [facility] Status: Signed Intake Vital Signs 09/09/24 15:28 09/30/24 13:28 10/13/24 13:43 10/13/24 13:49 Height 5 ft 4 in 5 ft 4 in 5 ft 4 in 5 ft 4 in Weight: 244 lb 8 oz BMI 41.9 BP 144/78 H 130/72 H Intake Visit Reasons: 30wk ob *csection JV Chief Complaint: 30 Week OB Mammalogist Required: No Is patient in pain?: No Allergies No Known Allergies Allergy (Verified 10/13/24 13:42) Medications ???Medication ???Instructions ???Recorded ???Confirmed ???Type citalopram 40 mg tablet 40 mg PO DAILY depression #30 tabs 09/09/22 10/13/24 Rx pantoprazole 20 mg tablet,delayed 40 mg (2 x 20 mg) PO BID #60 12/2010/13/24 Rx release TABLETS labetalol 100 mg tablet 100 mg PO BID 03/11/24 10/13/24 Hi story PNV 153-FA 400 mcg-om3 35 mg-dha tab PO 05/07/24 10/13/24 History 25 mg-epa 5 mg-fish oil chew tablet ondansetron 4 mg disintegrating 4 mg PO Q8H PRN nausea and 5 10/13/24 Rx tablet vomiting #60 tabs Last Menstrual Period: 03/17/24 Zika: Zika virus screening: Negative : No PFSH PFSH Medical History (Updated 10/13/24 @ 14:25 by Jaqueline Hutchison APPRENTICE ELECTRICIAN, APPRENTICE ELECTRICIAN-C) Supervision of high risk , antepartum PONV (postoperative nausea and vomiting) Anemia Anxiety Wears contact lenses Wears glasses Low iron Heartburn Non-smoker Hypertension Severely increased blood pressure and swelling during Breech presentation Gestational hypertension Obesity affecting Abnormality of hormone Depression Surgical History History of esophagogastroduodenos copy (EGD) Status post section Family History Father Hypertension Social History adopted: No household members: spouse and children housing: house number of children: 1 current occupational status: employed current occupation: [employer] current occupational exposures/hazards: No pets and animals: Yes (2) pets and animals: dog(s) history of recent travel: Yes (- February) out of state: Yes out of country: No sexually active: Yes Smoking Status: Never smoker alcohol intake: current details: social not while substance use type: does not use well-balanced diet: daily or most days caffeine: Yes Type: carbonated beverages Number of servings: 1 eating out: 4 or more times/week during the past year weight has: decreased > 10 lbs what type of physical activity do you participate in: none deloris/gnosticist: Restoration seatbelt use: always do you feel safe at home: Yes 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 Date Name GA/Weeks Outcome Route Bth Weight Infant Gen Labor Lgth Anesthesia Del Locatn Provider FOB 09/04/22 Jessica 37 live - full term 6lbs Male spinal [facility] Delivery Date: 09/04/22 Last Updated by: Abigail Reed HPI 30wk ob *csection JV Details: CRISTELA SHAH is a 28 year old who presents for routine OB visit. OB Visit MIKE Calculator Estimated Delivery Date Method Current WG Current Estimate 12/22/24 LMP (Certain) 30w 0d Other Estimates 12/24/24 Ultrasound #1 29w 5d Expected Delivery Route/Plan prior cs. needs delivered at 38 weeks. but if goes into labor on her own wants to . RLTCS BS with JV Specific Issue/Plans Covid status: [] Flu vaccine: [] Tdap vaccine: given Rhogam: na LARC form signed: yes Problem list reviewed and updated with the most current plan of care details and appropriate orders placed. Relevant counseling for the gestational age provided. Continue routine care and follow up unless otherwise noted in visit notes/problem list details Initial Weight: Not Recorded Date -???-???-???-???-???-? ??-???-???-???-???-??? -???- EGA Weight BP Urine Prot -???-???-???-???-???-? ??-???-???-???-???-??? -???- Glucose FHR FuHt Pres Dilation -???-???-???-???-???-? ??-???-???-???-???-??? -???- Effaced St Visit Note 05/21/24 -???-???-???-???-???-? ??-???-???-???-???-??? -???- 9w 2d 226 lb 6 oz 136/88 -???-???-???-???-???-? ??-???-???-???-???-??? -???- 184 -???-???-???-???-???-? ??-???-? (more content not included)... Normal [facility] Absolute lymphocyte countOrd ered By: Do Fairbankslorene on 09-30-2024 Lymphocytes Auto (Unsp spec) [#/Vol] 2.26 10*3/uL 0.83-4.51 [facility] Absolute neutrophil countOrd ered By: Do Frankel on 09-30-2024 Neutrophils (Bld) [#/Vol] 7.9 10*3/uL High 2.0-7.7 [facility] Automated lymphocyte count a s percentage of total leukocytesOrdered By: Do Juanita on 09-30-2024 Lymphocytes/100 WBC Auto (Unsp spec) 19.8 % 19-41 [facility] Basophil percentageOrdered B y: Do Frankel on 09-30-2024 Basophils/100 WBC (Bld) 0.3 % 0-1 [facility] CBC W/Diff, Automatedon 09-19 Absolute Lymph 2.26 X10 3/uL Normal 0.83-4.51 [facility] Comment on above: Performed By: #### L 257.9717, L501.0250, L3890.6006, L100.0100 #### [facility] [address] [place], [address] Absolute Neut 7.9 X10 3/uL High 2.0-7.7 [facility] Comment on above: Performed By: #### L 509.8002, L501.0250, L3890.6006, L100.0100 #### [facility] [address] [place], [address] Basophils/100 WBC (Bld) 0.3 % Normal 0-1 [facility] Comment on above: Performed By: #### L 509.8002, L501.0250, L3890.6006, L100.0100 #### [facility] [address] [place], [address] Eosinophils/100 WBC (Bld) 3.3 % Normal 0-5 [facility] Comment on above: Performed By: #### L 509.8002, L501.0250, L3890.6006, L100.0100 #### [facility] [address] [place], [address] Erythrocyte distribution width (RBC) [Ratio] 15.9 % High 11.6-14.6 [facility] Comment on above: Performed By: #### L 509.8002, L501.0250, L3890.6006, L100.0100 #### [facility] [address] [place], [address] Hematocrit (Bld) [Volume fraction] 30.5 % Low 37-47 [facility] Comment on above: Performed By: #### L 509.8002, L501.0250, L3890.6006, L100.0100 #### [facility] [address] [place], [address] Hemoglobin (Bld) [Mass/Vol] 9.5 g/dL Low 12.0-15.0 [facility] Comment on above: Performed By: #### L 509.8002, L501.0250, L3890.6006, L100.0100 #### [facility] [address] [place], [address] IG% 0.600 Normal 0.0-0.9 [facility] Comment on above: Result Comment: IG% - Immature Granulocytes (promyelocytes, myelocytes and metamyelocytes) > 1% indicates that a LEFT SHIFT is Present. Performed By: #### L 509.8002, L501.0250, L3890.6006, L100.0100 #### [facility] [address] [place], [address] Lymphocytes/100 WBC (Bld) 19.8 % Normal 19-41 [facility] Comment on above: Performed By: #### L 509.8002, L501.0250, L3890.6006, L100.0100 #### [facility] [address] [place], [address] MCH (RBC) [Entitic mass] 25.2 pg Low 27.0-32.0 [facility] Comment on above: Performed By: #### L 509.8002, L501.0250, L3890.6006, L100.0100 #### [facility] [address] [place], [address] MCHC (RBC) [Mass/Vol] 31.1 g/dL Low 32-36 [facility] Comment on above: Performed By: #### L 509.8002, L501.0250, L3890.6006, L100.0100 #### [facility] [address] [place], [address] MCV (RBC) [Entitic vol] 80.9 fL Low 81-99 [facility] Comment on above: Performed By: #### L 509.8002, L501.0250, L3890.6006, L100.0100 #### [facility] [address] [place], [address] Monocytes/100 WBC (Bld) 7.0 % Normal 0-10 [facility] Comment on above: Performed By: #### L 509.8002, L501.0250, L3890.6006, L100.0100 #### [facility] [address] [place], [address] Neutrophils/100 WBC (Bld) 69.0 % Normal 47-70 [facility] Comment on above: Performed By: #### L 509.8002, L501.0250, L3890.6006, L100.0100 #### [facility] [address] [place], [address] Nucleated RBC (Bld) [#/Vol] 0 10*3/uL Normal 0-5 [facility] Comment on above: Performed By: #### L 509.8002, L501.0250, L3890.6006, L100.0100 #### [facility] [address] [place], [address] Platelet mean volume (Bld) [Entitic vol] 11.6 fL Normal 6.2-12.0 [facility] Comment on above: Performed By: #### L 509.8002, L501.0250, L3890.6006, L100.0100 #### [facility] [address] [place], [address] Platelets (Bld) [#/Vol] 247 10*3/uL Normal 150-450 [facility] Comment on above: Performed By: #### L 509.8002, L501.0250, L3890.6006, L100.0100 #### [facility] [address] [place], [address] RBC (Bld) [#/Vol] 3.77 10*6/uL Low 4.2-5.4 [facility] Comment on above: Performed By: #### L 509.8002, L501.0250, L3890.6006, L100.0100 #### [facility] [address] [place], [address] RDW SD 45.8 fl High 35.1-43.9 [facility] Comment on above: Performed By: #### L 509.8002, L501.0250, L3890.6006, L100.0100 #### [facility] [address] [place], [address] WBC (Bld) [#/Vol] 11.4 10*3/uL High 4.4-11.0 [facility] Comment on above: Performed By: #### L 509.8002, L501.0250, L3890.6006, L100.0100 #### [facility] [address] [place], [address] Eosinophil percentageOrdered By: Do Frankel on 09-30-2024 Eosinophils/100 WBC (Bld) 3.3 % 0-5 [facility] Erythrocyte distribution wid th ratioOrdered By: oD Frankel on 09-30-2024 Erythrocyte distribution width (RBC) [Ratio] 15.9 % High 11.6-14.6 [facility] Erythrocyte distribution wid th standard deviationOrdered By: Do Frankel on 09-30-2024 Erythrocyte distribution width (RBC) [Ratio] 45.8 fl High 35.1-43.9 [facility] Glucose Challenge Gest 1H 50 miguel 09-30-2024 GLU GEST 50g 1H 72 mg/dL Normal 70-140 [facility] Comment on above: Performed By: #### L 509.8002, L501.0250, L3890.6006, L100.0100 #### [facility] [address] [place], [address] Glucose measurement at 2 daniel rs post-dose gestational glucose tolerance testOrdered By: Do Frankel on 09-30-2024 Glucose [Mass/Vol] 72 mg/dL 70-140 [facility] HIVon 09-30-2024 HIV Non-Reactive Normal Nonreactive [facility] Comment on above: Result Comment: Non- Reactive Reactive Repeatedly reactive samples must be confirmed according to CDC recommended confirmatory algorithms. The subresults for either HIVAG or AHIV can be used as an aid in the selection of the confirmation algorithm for reactive samples. Send out specimens with Reactive results to [facility] for confirmation. Order the HIV antibody detection and differentiation: lc#[id number] Performed By: #### L 509.8002, L501.0250, L3890.6006, L100.0100 #### [facility] [address] [place], [place], [id number] Hematocrit Auto (Bld) [Volum e fraction]Ordered By: Do Frankel on 09-30-2024 Hematocrit (Bld) [Volume fraction] 30.5 % Low 37-47 [facility] Hemoglobin measurementOrdere d By: Do Frankel on 09-30-2024 Hemoglobin (Bld) [Mass/Vol] 9.5 g/dL Low 12.0-15.0 [facility] Immature granulocytes/100 WB C Auto (Bld)Ordered By: Do Frankel on 09-30-2024 Immature granulocytes/100 WBC (Bld) 0.600 % 0.0-0.9 [facility] Comment on above: IG% - Immature Granu locytes (promyelocytes, myelocytes and metamyelocytes) > 1% indicates that a LEFT SHIFT is Present. Laboratory - Chemistry and C hemistry - challengeOrdered By: Jaqueline Hutchison on 09-30-2024 Glucose Ql (U) Negative [facility] - UrinalysisOrder ed By: Jaqueline Hutchison on 09-30-2024 Protein Ql (U) Negative [facility] MCV (mean corpuscular volume ) determinationOrdered By: Do Frankel on 09-30-2024 MCV (RBC) [Entitic vol] 80.9 fL Low 81-99 [facility] Mean corpuscular hemoglobin (MCH) determinationOrdered By: Do Frankel on 09-30-2024 MCH (RBC) [Entitic mass] 25.2 pg Low 27.0-32.0 [facility] Mean corpuscular hemoglobin concentration (MCHC) determinationOrdered By: Do Frankel on 09-30-2024 MCHC (RBC) [Mass/Vol] 31.1 g/dL Low 32-36 [facility] Mean platelet volume determi nationOrdered By: Do Frankel on 09-30-2024 Platelet mean volume (Bld) [Entitic vol] 11.6 fL 6.2-12.0 [facility] Monocyte percentageOrdered B y: Do Frankel on 09-30-2024 Monocytes/100 WBC (Bld) 7.0 % 0-10 [facility] Neutrophil percentageOrdered By: Do Frankel on 09-30-2024 Neutrophils/100 WBC (Bld) 69.0 % 47-70 [facility] No Panel InformationOrdered By: Do Frankel on 09-30-2024 HIV (1&2) Antibody Non-Reactive Nonreactive [facility] Comment on above: Non-ReactiveReactive Repeatedly reactive samples must be confirmed according to CDC recommended confirmatory algorithms. The subresults for either HIVAG or AHIV can be used as an aid in the selection of the confirmation algorithm for reactive samples.Send out specimens with Reactive results to [facility] for confirmation.Order the HIV antibody detection and differentiation: #[id number] Nucleated red blood cell per centageOrdered By: Do Frankel on 09-30-2024 Nucleated RBC/100 WBC (Bld) [Ratio] 0 % 0-5 [facility] Drawer In Jacquard Loom Office Visit Reporton 09-30-2024 Drawer In [facility] Office Visit Report [facility]'[address], [address] [place] [address] OFFICE VISIT Date of Service: 09/30/24 MR#: [id number] Acct: [id number] Name: CRISTELA SHAH Rep #: [id number] : 1995 Provider: LUIZ horner Age/Sex: 28/F [place] [facility] [place] Status: Signed with Addenda ADDENDUM by Cande Rogers on 09/30/24 at 1350 Office Procedure Documentation entered by Cande Rogers 09/30/24 13:50: Immunizations Adacel(Tdap Adolesn/Adult)(PF) 2 Lf-(2.5-5-3-5)-5 Lf/0.5 mL IM syringe Performing Provider: Jaqueline Hutchison APPRENTICE ELECTRICIANKILEYC Performing Location: [facility] Administered by: Cande Rogers on 09/30/24 13:49 Dose Route Admin Location Dispensed Lot Number Expiration Date NDC Man ufacturer 0.5 mL IM Left Deltoid 0.5 mL [id number] 09/18/25 [id number] [employer] VIS Given Date VIS Provided VIS Publication Date 09/30/24 Single Vaccine 24 Eligibility Eligibility Date Funding Source Not Applicable Date cc: * Signed Intake Vital Signs 07/16/24 11:24 09/09/24 15:28 09/30/24 13:28 Height 5 ft 4 in 5 ft 4 in 5 ft 4 in Weight: 245 lb 8 oz BMI 42.1 BP 136/78 H Intake Visit Reasons: 28wk ob/glucose Mammalogist Required: No Is patient in pain?: No Allergies No Known Allergies Allergy (Verified 09/30/24 13:33) Medications ???Medication ???Instructions ???Recorded ???Confirmed ???Type citalopram 40 mg tablet 40 mg PO DAILY depression #30 tabs 09/09/22 09/30/24 Rx pantoprazole 20 mg tablet,delayed 40 mg (2 x 20 mg) PO BID #60 12/2009/30/24 Rx release TABLETS labetalol 100 mg tablet 100 mg PO BID 03/11/24 09/30/24 Hi story PNV 153-FA 400 mcg-om3 35 mg-dha tab PO 05/07/24 09/30/24 History 25 mg-epa 5 mg-fish oil chew tablet ondansetron 4 mg disintegrating 4 mg PO Q8H PRN nausea and 5 09/30/24 Rx tablet vomiting #60 tabs Last Menstrual Period: 03/17/24 Zika: Zika virus screening: Negative : No PFSH PFSH Medical History Supervision of high risk , antepartum PONV (postoperative nausea and vomiting) Anemia Anxiety Wears contact lenses Wears glasses Low iron Heartburn Non-smoker Hypertension Severely increased blood pressure and swelling during Breech presentation Gestational hypertension Obesity affecting Abnormality of hormone Depression Surgical History History of esophagogastroduodenos copy (EGD) Status post section Family History Father Hypertension Social History adopted: No household members: spouse and children housing: house number of children: 1 current occupational status: employed current occupation: [employer] current occupational exposures/hazards: No pets and animals: Yes (2) pets and animals: dog(s) history of recent travel: Yes (- February) out of state: Yes out of country: No sexually active: Yes Smoking Status: Never smoker alcohol intake: current details: social not while substance use type: does not use well-balanced diet: daily or most days caffeine: Yes Type: carbonated beverages Number of servings: 1 eating out: 4 or more times/week during the past year weight has: decreased > 10 lbs what type of physical activity do you participate in: none deloris/gnosticist: Restoration seatbelt use: always do you feel safe at home: Yes 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 Date Name GA/Weeks Outcome Route Bth Weight Infant Gen Labor Lgth Anesthesia Del Locatn Provider FOB 09/04/22 Jessica 37 live - full term 6lbs Male spinal [facility] Delivery Date: 09/04/22 Last Updated by: Abigail Reed HPI 28wk ob/glucose Details: CRISTELA SHAH is a 28 year old who presents for routine OB visit. OB Visit MIKE Calculator Estimated Delivery Date Method Current WG Current Estimate 12/22/24 LMP (Certain) 28w 1d Other Estimates 12/24/24 Ultrasound #1 27w 6d Expected Delivery Route/Plan prior cs. needs delivered at 38 weeks. but if goes into labor on her own wants to . RLTCS BS with JV Specific Issue/Plans Covid status: [] Flu vaccine: [] Tdap vaccine: given Rhogam: na LARC form signed: yes Problem list reviewed (more content not included)... Normal [facility] Platelet countOrdered By: Carlos Frankel on 09-30-2024 Platelets (Bld) [#/Vol] 247 10*3/uL 150-450 [facility] RBC Auto (Bld) [#/Vol]Ordere d By: Do Frankel on 09-30-2024 RBC (Bld) [#/Vol] 3.77 10*6/uL Low 4.2-5.4 [facility] Syphilis Antibodieson 2024 Syphilis Abs Non-Reactive Normal Nonreactive [facility] Comment on above: Performed By: #### L 509.8002, L501.0250, L3890.6006, L100.0100 #### [facility] [address] [facility], [place], [address] White blood cell (WBC) count Ordered By: Do Frankel on 09-30-2024 WBC (Bld) [#/Vol] 11.4 10*3/uL High 4.4-11.0 [facility] Laboratory - Chemistry and C hemistry - challengeOrdered By: Do Frankel on 09-09-2024 Glucose Ql (U) Negative [facility] - UrinalysisOrder ed By: Do Frankel on 09-09-2024 Protein Ql (U) Negative [facility] Drawer In Jacqu[facility]oom Office Visit Reporton 09-09-2024 Drawer In [facility] Office Visit Report [facility] [address], [address] [place] [address] OFFICE VISIT Date of Service: 09/09/24 MR#: [id number] Acct: [id number] Name: CRISTELA SHAH Rep #: [id number] : 1995 Provider: Dr. Do julian MD Age/Sex: 28/F [place] [facility] [place]: Signed Intake Vital Signs 07/01/24 15:18 08/11/24 14:39 09/09/24 15:25 09/09/24 15:28 Height 5 ft 4 in 5 ft 4 in 5 ft 4 in 5 ft 4 in Weight: 243 lb BMI 41.7 BP 137/84 H Intake Visit Reasons: 25 wk ob Mammalogist Required: No Is patient in pain?: No Allergies No Known Allergies Allergy (Verified 09/09/24 15:24) Medications ???Medication ???Instructions ???Recorded ???Confirmed ???Type citalopram 40 mg tablet 40 mg PO DAILY depression #30 tabs 09/09/22 09/09/24 Rx pantoprazole 20 mg tablet,delayed 40 mg (2 x 20 mg) PO BID #60 12/2009/09/24 Rx release TABLETS labetalol 100 mg tablet 100 mg PO BID 03/11/24 09/09/24 Hi story PNV 153-FA 400 mcg-om3 35 mg-dha tab PO 05/07/24 09/09/24 History 25 mg-epa 5 mg-fish oil chew tablet ondansetron 4 mg disintegrating 4 mg PO Q8H PRN nausea and 5 09/09/24 Rx tablet vomiting #60 tabs Last Menstrual Period: 03/17/24 Zika: Zika virus screening: Negative : No PFSH PFSH Medical History Supervision of high risk , antepartum PONV (postoperative nausea and vomiting) Anemia Anxiety Wears contact lenses Wears glasses Low iron Heartburn Non-smoker Hypertension Severely increased blood pressure and swelling during Breech presentation Gestational hypertension Obesity affecting Abnormality of hormone Depression Surgical History History of esophagogastroduodenos copy (EGD) Status post section Family History Father Hypertension Social History adopted: No household members: spouse and children housing: house number of children: 1 current occupational status: employed current occupation: [employer] current occupational exposures/hazards: No pets and animals: Yes (2) pets and animals: dog(s) history of recent travel: Yes ([place]- February) out of state: Yes out of country: No sexually active: Yes Smoking Status: Never smoker alcohol intake: current details: social not while substance use type: does not use well-balanced diet: daily or most days caffeine: Yes Type: carbonated beverages Number of servings: 1 eating out: 4 or more times/week during the past year weight has: decreased > 10 lbs what type of physical activity do you participate in: none deloris/gnosticist: Restoration seatbelt use: always do you feel safe at home: Yes 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 Date Name GA/Weeks Outcome Route Bth Weight Infant Gen Labor Lgth Anesthesia Del Locatn Provider FOB 09/04/22 Jessica 37 live - full term 6lbs Male spinal [facility] Delivery Date: 09/04/22 Last Updated by: Abigail Reed HPI 25 wk ob Details: CRISTELA SHAH is a 28 year old who presents for routine OB visit. OB Visit MIKE Calculator Estimated Delivery Date Method Current WG Current Estimate 12/22/24 LMP (Certain) 25w 1d Other Estimates 12/24/24 Ultrasound #1 24w 6d Expected Delivery Route/Plan prior cs. needs delivered at 38 weeks. but if goes into labor on her own wants to . RLTCS with JV Specific Issue/Plans Covid status: [] Flu vaccine: [] Tdap vaccine: [] Rhogam: [] LARC form signed: [] Problem list reviewed and updated with the most current plan of care details and appropriate orders placed. Relevant counseling for the gestational age provided. Continue routine care and follow up unless otherwise noted in visit notes/problem list details Initial Weight: Not Recorded Date -???-???-???-???-???-? ??-???-???-???-???-??? -???- EGA Weight BP Urine Prot -???-???-???-???-???-? ??-???-???-???-???-??? -???- Glucose FHR FuHt Pres Dilation -???-???-???-???-???-? ??-???-???-???-???-??? -???- Effaced St Visit Note 05/21/24 -???-???-???-???-???-? ??-???-???-???-???-??? -???- 9w 2d 226 lb 6 oz 136/88 -???-???-???-???-???-? ??-???-???-???-???-??? -???- 184 -???-???-???-???-???-? ??-???-???-???-???-??? -???- JV- CRL cons istent with LMP. declines nipt. taking labetalol (more content not included)... Normal [facility] - Chemistry and C hemistry - challengeOrdered By: Gay Pillai on 08-11-2024 Glucose Ql (U) Negative [facility] - UrinalysisOrder ed By: Gay Pillai on 08-11-2024 Protein Ql (U) Negative [facility] Drawer In [facility]qu[facility] Loom Office Visit Reporton 08-11-2024 Drawer In Jacquard Loom Office Visit Report [facility] [address] [place] [address], [address] [place] [address] OFFICE VISIT Date of Service: 08/11/24 MR#: [id number] Acct: [id number] Name: CRISTELA SHAH Rep #: [id number] : 1995 Provider: Dr. Gay Gifford DO Age/Sex: 28/F [place] [facility] [place]: Signed Intake Vital Signs 06/16/24 15:01 07/16/24 11:24 08/11/24 14:39 08/11/24 14:39 Height 5 ft 4 in 5 ft 4 in 5 ft 4 in 5 ft 4 in Weight: 236 lb BMI 40.5 BP 124/81 H Intake Visit Reasons: 21 WK OB Mammalogist Required: No Is patient in pain?: No Allergies No Known Allergies Allergy (Verified 08/11/24 14:39) Medications ???Medication ???Instructions ???Recorded ???Confirmed ???Type citalopram 40 mg tablet 40 mg PO DAILY depression #30 tabs 09/09/22 08/11/24 Rx pantoprazole 20 mg tablet,delayed 40 mg (2 x 20 mg) PO BID #60 12/2008/11/24 Rx release TABLETS labetalol 100 mg tablet 100 mg PO BID 03/11/24 08/11/24 Hi story PNV 153-FA 400 mcg-om3 35 mg-dha tab PO 05/07/24 08/11/24 History 25 mg-epa 5 mg-fish oil chew tablet ondansetron 4 mg disintegrating 4 mg PO Q8H PRN nausea and 5 08/11/24 Rx tablet vomiting #60 tabs Last Menstrual Period: 03/17/24 Zika: Zika virus screening: Negative : No PFSH PFSH Medical History (Updated 08/11/24 @ 15:[address] Gay Gan, DO) Supervision of high risk , antepartum PONV (postoperative nausea and vomiting) Anemia Anxiety Wears contact lenses Wears glasses Low iron Heartburn Non-smoker Hypertension Severely increased blood pressure and swelling during Breech presentation Gestational hypertension Obesity affecting Abnormality of hormone Depression Surgical History History of esophagogastroduodenos copy (EGD) Status post section Family History Father Hypertension Social History adopted: No household members: spouse and children housing: house number of children: 1 current occupational status: employed current occupation: [employer] current occupational exposures/hazards: No pets and animals: Yes (2) pets and animals: dog(s) history of recent travel: Yes (- February) out of state: Yes out of country: No sexually active: Yes Smoking Status: Never smoker alcohol intake: current details: social not while substance use type: does not use well-balanced diet: daily or most days caffeine: Yes Type: carbonated beverages Number of servings: 1 eating out: 4 or more times/week during the past year weight has: decreased > 10 lbs what type of physical activity do you participate in: none deloris/gnosticist: Restoration seatbelt use: always do you feel safe at home: Yes 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 Date Name GA/Weeks Outcome Route Bth Weight Gen Labor Lgth Anesthesia Del Locatn Provider FOB 09/04/22 Jessica 37 live - full term 6lbs Male spinal [facility] Delivery Date: 09/04/22 Last Updated by: Abigail Reed HPI 21 WK OB Details: CRISTELA SHAH is a 28 year old who presents for routine OB visit. OB Visit MIKE Calculator Estimated Delivery Date Method Current WG Current Estimate 12/22/24 LMP (Certain) 21w 0d Other Estimates 12/24/24 Ultrasound #1 20w 5d Expected Delivery Route/Plan prior cs. needs delivered at 38 weeks. but if goes into labor on her own wants to . RLTCS with JV Specific Issue/Plans Covid status: [] Flu vaccine: [] Tdap vaccine: [] Rhogam: [] LARC form signed: [] Problem list reviewed and updated with the most current plan of care details and appropriate orders placed. Relevant counseling for the gestational age provided. Continue routine care and follow up unless otherwise noted in visit notes/problem list details Initial Weight: Not Recorded Date -???-???-???-???-???-? ??-???-???-???-???-??? -???- EGA Weight BP Urine Prot -???-???-???-???-???-? ??-???-???-???-???-??? -???- Glucose FHR FuHt Pres Dilation -???-???-???-???-???-? ??-???-???-???-???-??? -???- Effaced St Visit Note 05/21/24 -???-???-???-???-???-? ??-???-???-???-???-??? -???- 9w 2d 226 lb 6 oz 136/88 -???-???-???-???-???-? ??-???-???-???-???-??? -???- 184 -???-???-???-???-???-? ??-???-???-???-???-??? -???- JV- CRL cons istent with LMP. declines n (more content not included)... Normal [facility] Gastroenterology Visit Repor ton 08-10-2024 Gastroenterology Visit Report [facility] [address] [place] [address] OFFICE VISIT Date of Service: 08/10/24 MR#: [id number] Acct: [id number] Name: CRISTELA SHAH Rep #: [id number] : 1995 Provider: VALERIA Cai Age/Sex: 28/F Location: [facility] [place] Status: Signed Intake Vital Signs 09/14/23 05:03 07/16/24 11:24 Height 5 ft 4 in 5 ft 4 in Intake Visit Reasons: 6 M FU Mammalogist Required: No Allergies No Known Allergies Allergy (Verified 07/16/24 11:23) Patient : Yes Have you fallen in the past year?: No Nurse's Note: OV 08.10.24 Pt here for a f/u dysphagia. Denies N/V/D/C. Pt has not been taking pantoprazole and reports EOS has worsened. Pt is currently and would like to know if she can take PPI. [facility] Medical History Supervision of high risk , antepartum PONV (postoperative nausea and vomiting) Anemia Anxiety Wears contact lenses Wears glasses Low iron Heartburn Non-smoker Hypertension Severely increased blood pressure and swelling during Breech presentation Gestational hypertension Obesity affecting Abnormality of hormone Depression Surgical History History of esophagogastroduodenos copy (EGD) Status post section Family History Father Hypertension Social History adopted: No household members: spouse and children housing: house number of children: 1 current occupational status: employed current occupation: [employer] current occupational exposures/hazards: No pets and animals: Yes (2) pets and animals: dog(s) history of recent travel: Yes (- February) out of state: Yes out of country: No sexually active: Yes Smoking Status: Never smoker alcohol intake: current details: social not while substance use type: does not use well-balanced diet: daily or most days caffeine: Yes Type: carbonated beverages Number of servings: 1 eating out: 4 or more times/week during the past year weight has: decreased > 10 lbs what type of physical activity do you participate in: none deloris/gnosticist: Restoration seatbelt use: always do you feel safe at home: Yes 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 BGI established in 2022 with dysphagia. Biochemical celiac, GAME, ROD comp without pertinent abnormality. pANCA H1:20 RAST low/equivocal corn, soybean; low peanut; high whole egg, wheat; very high cow milk. Environmental allergies include weeks, trees, grass, cat and dog. 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 Feels she may need dilation again. Avoiding food allergens. Continues with PPI. Constipation for years. Recommended EGD with dilation, continue PPI and sample Linzess. OV 4.22.25; Pt has been having worsening issues with swallowing. She discontinued her pantoprazole when she found out she was . She is currently 21 weeks . She is having swallowing issues when she eats anything with diary or carbs. She is experiencing more nausea, vomiting and heartburn related to her . ROS Const Constitutional: Positive for weight change; No fatigue or fever(s) ENT ENT: Positive for difficulty swallowing Gastro GI: Positive for bloating, heartburn and difficulty swallowing; No abdominal pain, belching, change in bowel habits, change in stool character, coffee ground emesis, constipation, cramping, diarrhea, feeling full early, excessive flatus, incontinent of stools, Vomiting blood/hematemesis, Blood in stool, loose stools, Black,tarry stools, nausea/dyspepsia, pain with swallowing, vomiting or other Musc Musculoskeletal: No joint pain Skin Skin: No yellowing of the eye or itchy eyes Psych Psychiatric: Positive for anxiety and Positive for depression Endo Endocrine: Positive for weight change; No fatigue Aller/Imm Allergy/Immunologic: No itchy eyes Patric/Lymp Hematologic/Lymphatic: No easy bleeding or easy bruising Exam Const General: cooperative and comfortable Nutritional Appearance: average body habitus and well nourished [facility] Head: normal to inspection Ears: hearing grossly normal bilaterally Nose: external nose normal Face and sinus: normal facial exam Eyes General: appearance normal, both eyes and all related structures Neck Neck: normal visual inspection Chest Chest palpation inspection: normal insp (more content not included)... Normal [facility] - Chemistry and C hemistry - challengeOrdered By: Gay Pillai on 07-16-2024 Glucose Ql (U) Negative [facility] - UrinalysisOrder ed By: Gay Pillai on 07-16-2024 Protein Ql (U) Negative [facility] Drawer In Jacquard Loom Office Visit Reporton 07-16-2024 Drawer In Jacquard Loom Office Visit Report [facility] [address], [address] [place] [address] OFFICE VISIT Date of Service: 07/16/24 MR#: [id number] Acct: [id number] Name: PABLORAYSACRISTELAMARILYN EVANS Rep #: [id number] : 1995 Provider: Dr. Gay Gifford DO Age/Sex: 28/F [place] [facility] [place]: Signed Intake Vital Signs 06/16/24 15:01 07/01/24 15:18 07/16/24 11:23 07/16/24 11:24 Height 5 ft 4 in 5 ft 4 in 5 ft 4 in 5 ft 4 in Weight: 233 lb 8 oz BMI 40.1 BP 135/79 H Intake Visit Reasons: 17 WK OB Mammalogist Required: No Is patient in pain?: No Allergies No Known Allergies Allergy (Verified 07/16/24 11:23) Medications ???Medication ???Instructions ???Recorded ???Confirmed ???Type citalopram 40 mg tablet 40 mg PO DAILY depression #30 tabs 09/09/22 07/16/24 Rx pantoprazole 20 mg tablet,delayed 40 mg (2 x 20 mg) PO BID #60 12/2007/16/24 Rx release TABLETS labetalol 100 mg tablet 100 mg PO BID 03/11/24 07/16/24 Hi story PNV 153-FA 400 mcg-om3 35 mg-dha tab PO 05/07/24 07/16/24 History 25 mg-epa 5 mg-fish oil chew tablet ondansetron 4 mg disintegrating 4 mg PO Q8H PRN nausea and 5 07/16/24 Rx tablet vomiting #60 tabs Last Menstrual Period: 03/17/24 Zika: Zika virus screening: Negative : No PFSH PFSH Medical History Supervision of high risk , antepartum PONV (postoperative nausea and vomiting) Anemia Anxiety Wears contact lenses Wears glasses Low iron Heartburn Non-smoker Hypertension Severely increased blood pressure and swelling during Breech presentation Gestational hypertension Obesity affecting Abnormality of hormone Depression Surgical History History of esophagogastroduodenos copy (EGD) Status post section Family History Father Hypertension Social History adopted: No household members: spouse and children housing: house number of children: 1 current occupational status: employed current occupation: [employer] current occupational exposures/hazards: No pets and animals: Yes (2) pets and animals: dog(s) history of recent travel: Yes (- February) out of state: Yes out of country: No sexually active: Yes Smoking Status: Never smoker alcohol intake: current details: social not while substance use type: does not use well-balanced diet: daily or most days caffeine: Yes Type: carbonated beverages Number of servings: 1 eating out: 4 or more times/week during the past year weight has: decreased > 10 lbs what type of physical activity do you participate in: none deloris/gnosticist: Restoration seatbelt use: always do you feel safe at home: Yes 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 Date Name GA/Weeks Outcome Route Bth Weight Infant Gen Labor Lgth Anesthesia Del Locatn Provider FOB 09/04/22 Jessica 37 live - full term 6lbs Male spinal [facility] Delivery Date: 09/04/22 Last Updated by: Abigail Reed HPI 17 WK OB Details: CRISTELA SHAH is a 28 year old who presents for routine OB visit. OB Visit MIKE Calculator Estimated Delivery Date Method Current WG Current Estimate 12/22/24 LMP (Certain) 17w 2d Other Estimates 12/24/24 Ultrasound #1 17w 0d Expected Delivery Route/Plan prior cs. needs delivered at 38 weeks. but if goes into labor on her own wants to . RLTCS with JV Specific Issue/Plans Covid status: [] Flu vaccine: [] Tdap vaccine: [] Rhogam: [] LARC form signed: [] Problem list reviewed and updated with the most current plan of care details and appropriate orders placed. Relevant counseling for the gestational age provided. Continue routine care and follow up unless otherwise noted in visit notes/problem list details Initial Weight: Not Recorded Date -???-???-???-???-???-? ??-???-???-???-???-??? -???- EGA Weight BP Urine Prot -???-???-???-???-???-? ??-???-???-???-???-??? -???- Glucose FHR FuHt Pres Dilation -???-???-???-???-???-? ??-???-???-???-???-??? -???- Effaced St Visit Note 05/21/24 -???-???-???-???-???-? ??-???-???-???-???-??? -???- 9w 2d 226 lb 6 oz 136/88 -???-???-???-???-???-? ??-???-???-???-???-??? -???- 184 -???-???-???-???-???-? ??-???-???-???-???-??? -???- JV- CRL cons istent with LMP. declines nipt. t (more content not included)... Normal [facility] Drawer In [facility] Office Visit Reporton 07-01-2024 Drawer In [facility] Office Visit Report [facility] [address], [address] [place] [address] OFFICE VISIT Date of Service: 07/01/24 MR#: [id number] Acct: [id number] Name: CRISTELA SHAH Rep #: [id number] : 1995 Provider: AL Castaneda ams Age/Sex: 28/F [place] [facility] [place] Status: Signed Intake Vital Signs 06/16/24 15:01 07/01/24 15:18 Height 5 ft 4 in 5 ft 4 in Weight: 228 lb 4 oz BMI 39.2 BP 137/87 H Intake Visit Reasons: heartbeat check per KW Chief Complaint: heartbeat check Is patient in pain?: No Allergies No Known Allergies Allergy (Verified 07/01/24 15:23) Medications ???Medication ???Instructions ???Recorded ???Confirmed ???Type citalopram 40 mg tablet 40 mg PO DAILY depression #30 tabs 09/09/22 07/01/24 Rx pantoprazole 20 mg tablet,delayed 40 mg (2 x 20 mg) PO BID #60 12/2007/01/24 Rx release TABLETS labetalol 100 mg tablet 100 mg PO BID 03/11/24 07/01/24 Hi story PNV 153-FA 400 mcg-om3 35 mg-dha tab PO 05/07/24 07/01/24 History 25 mg-epa 5 mg-fish oil chew tablet ondansetron 4 mg disintegrating 4 mg PO Q8H PRN nausea and 5 07/01/24 Rx tablet vomiting #60 tabs Last Menstrual Period: 03/17/24 : No PFSH PFSH Medical History Supervision of high risk , antepartum PONV (postoperative nausea and vomiting) Anemia Anxiety Wears contact lenses Wears glasses Low iron Heartburn Non-smoker Hypertension Severely increased blood pressure and swelling during Breech presentation Gestational hypertension Obesity affecting Abnormality of hormone Depression Surgical History History of esophagogastroduodenos copy (EGD) Status post section Family History Father Hypertension Social History adopted: No household members: spouse and children housing: house number of children: 1 current occupational status: employed current occupation: [employer] current occupational exposures/hazards: No pets and animals: Yes (2) pets and animals: dog(s) history of recent travel: Yes (- February) out of state: Yes out of country: No sexually active: Yes Smoking Status: Never smoker alcohol intake: current details: social not while substance use type: does not use well-balanced diet: daily or most days caffeine: Yes Type: carbonated beverages Number of servings: 1 eating out: 4 or more times/week during the past year weight has: decreased > 10 lbs what type of physical activity do you participate in: none deloris/gnosticist: Restoration seatbelt use: always do you feel safe at home: Yes 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 Date Name GA/Weeks Outcome Route Bth Weight Gen Labor Lgth Anesthesia Del Locatn Provider FOB 09/04/22 Jessica 37 live - full term 6lbs Male spinal [facility] Delivery Date: 09/04/22 Last Updated by: Abigail Reed HPI heartbeat check per KW Details: CRISTELA SHAH is a 28 year old who presents for routine OB visit. OB Visit MIKE Calculator Estimated Delivery Date Method Current WG Current Estimate 12/22/24 LMP (Certain) 15w 1d Other Estimates 12/24/24 Ultrasound #1 14w 6d Expected Delivery Route/Plan prior cs. needs delivered at 38 weeks. but if goes into labor on her own wants to . RLTCS with JV Specific Issue/Plans Covid status: [] Flu vaccine: [] Tdap vaccine: [] Rhogam: [] LARC form signed: [] Problem list reviewed and updated with the most current plan of care details and appropriate orders placed. Relevant counseling for the gestational age provided. Continue routine care and follow up unless otherwise noted in visit notes/problem list details Initial Weight: Not Recorded Date -???-???-???-???-???-? ??-???-???-???-???-??? -???- EGA Weight BP Urine Prot -???-???-???-???-???-? ??-???-???-???-???-??? -???- Glucose FHR FuHt Pres Dilation -???-???-???-???-???-? ??-???-???-???-???-??? -???- Effaced St Visit Note 05/21/24 -???-???-???-???-???-? ??-???-???-???-???-??? -???- 9w 2d 226 lb 6 oz 136/88 -???-???-???-???-???-? ??-???-???-???-???-??? -???- 184 -???-???-???-???-???-? ??-???-???-???-???-??? -???- JV- CRL cons istent with LMP. declines nipt. taking labetalol. 05/28/24 -???-???-???-???-???-? ??-???-???-???-???-??? -???- 10w (more content not included)... Normal [facility] - Chemistry and C hemistry - challengeOrdered By: Do Frankel on 06-16-2024 Glucose Ql (U) Negative [facility] - UrinalysisOrder ed By: Do Frankel on 06-16-2024 Protein Ql (U) Negative [facility] Drawer In [facility] Office Visit Reporton 06-16-2024 Drawer In [facility] Office Visit Report [facility] [address], [address] [place] [address] OFFICE VISIT Date of Service: 06/16/24 MR#: [id number] Acct: [id number] Name: CRISTELA SHAH Rep #: [id number] : 1995 Provider: Dr. Do julian MD Age/Sex: 28/F [place] [facility] [place] Status: Signed Intake Vital Signs 05/07/24 09:31 05/28/24 15:51 06/16/24 14:59 06/16/24 15:01 Height 5 ft 4 in 5 ft 4 in 5 ft 4 in 5 ft 4 in Weight: 230 lb BMI 39.4 BP 160/95 H 133/84 H Intake Visit Reasons: 13 wk ob Mammalogist Required: No Is patient in pain?: No Allergies No Known Allergies Allergy (Verified 06/16/24 15:08) Medications ???Medication ???Instructions ???Recorded ???Confirmed ???Type citalopram 40 mg tablet 40 mg PO DAILY depression #30 tabs 09/09/22 06/16/24 Rx pantoprazole 20 mg tablet,delayed 40 mg (2 x 20 mg) PO BID #60 12/2006/16/24 Rx release TABLETS labetalol 100 mg tablet 100 mg PO BID 03/11/24 06/16/24 Hi story PNV 153-FA 400 mcg-om3 35 mg-dha tab PO 05/07/24 06/16/24 History 25 mg-epa 5 mg-fish oil chew tablet ondansetron 4 mg disintegrating 4 mg PO Q8H PRN nausea and 5 06/16/24 Rx tablet vomiting #60 tabs Last Menstrual Period: 03/17/24 Zika: Zika virus screening: Negative : No Have you fallen in the past year?: No PFSH PFSH Medical History Supervision of high risk , antepartum PONV (postoperative nausea and vomiting) Anemia Anxiety Wears contact lenses Wears glasses Low iron Heartburn Non-smoker Hypertension Severely increased blood pressure and swelling during Breech presentation Gestational hypertension Obesity affecting Abnormality of hormone Depression Surgical History History of esophagogastroduodenos copy (EGD) Status post section Family History Father Hypertension Social History adopted: No household members: spouse and children housing: house number of children: 1 service: No current occupational status: employed current occupation: [employer] current occupational exposures/hazards: No pets and animals: Yes (2) pets and animals: dog(s) history of recent travel: Yes (- February) out of state: Yes out of country: No sexually active: Yes Smoking Status: Never smoker alcohol intake: current details: social not while substance use type: does not use well-balanced diet: daily or most days caffeine: Yes Type: carbonated beverages Number of servings: 1 eating out: 4 or more times/week during the past year weight has: decreased > 10 lbs what type of physical activity do you participate in: none deloris/gnosticist: Restoration seatbelt use: always do you feel safe at home: Yes 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 Date Name GA/Weeks Outcome Route Bth Weight Gen Labor Lgth Anesthesia Del Locatn Provider FOB 09/04/22 Jessica 37 live - full term 6lbs Male spinal [facility] Delivery Date: 09/04/22 Last Updated by: Abigail Reed HPI 13 wk ob Details: CRISTELA SHAH is a 28 year old who presents for routine OB visit. OB Visit MIKE Calculator Estimated Delivery Date Method Current WG Current Estimate 12/22/24 LMP (Certain) 13w 0d Other Estimates 12/24/24 Ultrasound #1 12w 5d Expected Delivery Route/Plan prior cs. needs delivered at 38 weeks. but if goes into labor on her own wants to . RLTCS with JV Specific Issue/Plans Covid status: [] Flu vaccine: [] Tdap vaccine: [] Rhogam: [] LARC form signed: [] Problem list reviewed and updated with the most current plan of care details and appropriate orders placed. Relevant counseling for the gestational age provided. Continue routine care and follow up unless otherwise noted in visit notes/problem list details Initial Weight: Not Recorded Date -???-???-???-???-???-? ??-???-???-???-???-??? -???- EGA Weight BP Urine Prot -???-???-???-???-???-? ??-???-???-???-???-??? -???- Glucose FHR FuHt Pres Dilation -???-???-???-???-???-? ??-???-???-???-???-??? -???- Effaced St Visit Note 05/21/24 -???-???-???-???-???-? ??-???-???-???-???-??? -???- 9w 2d 226 lb 6 oz 136/88 -???-???-???-???-???-? ??-???-???-???-???-??? -???- 184 -???-???-???-???-???-? ??-???-???-???-???-?? (more content not included)... Normal [facility] Drawer In [facility] Office Visit Reporton 05-28-2024 Drawer In [facility] Office Visit Report [facility] [address], [address] [place] [address] OFFICE VISIT Date of Service: 05/28/24 MR#: [id number] Acct: [id number] Name: CRISTELA SHAH Rep #: [id number] : 1995 Provider: Dr. Gay Gifford DO Age/Sex: 28/F [place] [facility] [place] Status[place] Signed Intake Vital Signs 05/21/24 10:18 05/28/24 15:51 Height 5 ft 4 in 5 ft 4 in Weight: 228 lb 6 oz BMI 39.2 BP 153/91 H Intake Visit Reasons: US Mammalogist Required: No Is patient in pain?: No Allergies No Known Allergies Allergy (Verified 05/28/24 15:54) Medications ???Medication ???Instructions ???Recorded ???Confirmed ???Type citalopram 40 mg tablet 40 mg PO DAILY depression #30 tabs 09/09/22 05/28/24 Rx pantoprazole 20 mg tablet,delayed 40 mg (2 x 20 mg) PO BID #60 12/2005/28/24 Rx release TABLETS labetalol 100 mg tablet 100 mg PO BID 03/11/24 05/28/24 Hi story PNV 153-FA 400 mcg-om3 35 mg-dha tab PO 05/07/24 05/28/24 History 25 mg-epa 5 mg-fish oil chew tablet ondansetron 4 mg disintegrating 4 mg PO Q8H PRN nausea and 5 05/28/24 Rx tablet vomiting #60 tabs Last Menstrual Period: 03/17/24 Zika: Zika virus screening: Negative : No PFSH PFSH Medical History (Updated 05/28/24 @ 15:54 by Ciera Fields) Supervision of high risk , antepartum PONV (postoperative nausea and vomiting) Anemia Anxiety Wears contact lenses Wears glasses Low iron Heartburn Non-smoker Hypertension Severely increased blood pressure and swelling during Breech presentation Gestational hypertension Obesity affecting Abnormality of hormone Depression Surgical History History of esophagogastroduodenos copy (EGD) Status post section Family History Father Hypertension Social History adopted: No household members: spouse and children housing: house number of children: 1 current occupational status: employed current occupation: [employer] current occupational exposures/hazards: No pets and animals: Yes (2) pets and animals: dog(s) history of recent travel: Yes (- February) out of state: Yes out of country: No sexually active: Yes Smoking Status: Never smoker alcohol intake: current details: social not while substance use type: does not use well-balanced diet: daily or most days caffeine: Yes Type: carbonated beverages Number of servings: 1 eating out: 4 or more times/week during the past year weight has: decreased > 10 lbs what type of physical activity do you participate in: none deloris/gnosticist: Restoration seatbelt use: always do you feel safe at home: Yes 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 Date Name GA/Weeks Outcome Route Bth Weight Gen Labor Lgth Anesthesia Del Locatn Provider FOB 09/04/22 Jessica 37 live - full term 6lbs Male spinal [facility] Delivery Date: 09/04/22 Last Updated by: Abigail Rede [facility] Details: CRISTELA SHAH is a 28 year old who presents for routine OB visit. OB Visit MIKE Calculator Estimated Delivery Date Method Current WG Current Estimate 12/22/24 LMP (Certain) 10w 2d Other Estimates 12/24/24 Ultrasound #1 10w 0d Expected Delivery Route/Plan prior cs. needs delivered at 38 weeks. but if goes into labor on her own wants to . Specific Issue/Plans Covid status: [] Flu vaccine: [] Tdap vaccine: [] Rhogam: [] LARC form signed: [] Problem list reviewed and updated with the most current plan of care details and appropriate orders placed. Relevant counseling for the gestational age provided. Continue routine care and follow up unless otherwise noted in visit notes/problem list details Initial Weight: Not Recorded Date -???-???-???-???-???-? ??-???-???-???-???-??? -???- EGA Weight BP Urine Prot -???-???-???-???-???-? ??-???-???-???-???-??? -???- Glucose FHR FuHt Pres Dilation -???-???-???-???-???-? ??-???-???-???-???-??? -???- Effaced St Visit Note 05/21/24 -???-???-???-???-???-? ??-???-???-???-???-??? -???- 9w 2d 226 lb 6 oz 136/88 -???-???-???-???-???-? ??-???-???-???-???-??? -???- 184 -???-???-???-???-???-? ??-???-???-???-???-??? -???- JV- CRL cons istent with LMP. declines nipt. taking labetalol. 05/28/24 -???-???-???-???-???-? ??-???-???-???-???-??? -???- (more content not included)... Normal [facility] PAP IG HPV APTIMA 16/18,45on 05-27-2024 ADEQ Comment Normal . [facility] Comment on above: Order Comment: Melecio dodge Comment: [id number] Comment: Source.............CervixSpecimen Comment: Other..............Specimen Comment: No. of containers..01 ThinPrep Vial Result Comment: Sati sfactory for evaluation. No endocervical component is identified. Performed By: #### L 7400.0280 ####[facility] [address] [facility]. [place], [place], [id number] COMM . Normal . [facility] Comment on above: Order Comment: Melecio dodge Comment: [id number] Comment: Source.............CervixSpecimen Comment: Other..............Specimen Comment: No. of containers..01 ThinPrep Vial Performed By: #### L 7400.0280 ####[facility] [address] [facility]. [place], [place], [id number] COMMENT Comment Normal . [facility] Comment on above: Order Comment: Melecio dodge Comment: [id number] Comment: Source.............CervixSpecimen Comment: Other..............Specimen Comment: No. of containers..01 ThinPrep Vial Result Comment: This liquid based ThinPrep(R) pap test was screened with the use of an image guided system. Performed By: #### L 7400.0280 ####[facility] [address] [place], [address] DIAG Comment Normal . [facility] Comment on above: Order Comment: Speci men Comment: [id number] Comment: Source.............CervixSpecimen Comment: Other..............Specimen Comment: No. of containers..01 ThinPrep Vial Result Comment: NEGA TIVE FOR INTRAEPITHELIAL LESION OR MALIGNANCY. Performed By: #### L 7400.0280 ####[facility] [address] [place], [place], [id number] HPV APTIMA, HR Negative Normal Negative [facility] Comment on above: Order Comment: Speci men Comment: [id number] Comment: Source.............CervixSpecimen Comment: Other..............Specimen Comment: No. of containers..01 ThinPrep Vial Result Comment: This nucleic acid amplification test detects fourteen high- risk HPV types (16,18,31,33,35,39,45,51,52,56,58,59,66,68) without differentiation. Performed By: #### L 7400.0280 ####[facility] [address] [place], [address] HPV Rain Rfx Comment Normal . [facility] Comment on above: Order Comment: Speci men Comment: [id number] Comment: Source.............CervixSpecimen Comment: Other..............Specimen Comment: No. of containers..01 ThinPrep Vial Result Comment: Crit erdiomedes not met, HPV Genotype not performed. Performed at: - [facility] [id number] Marketing Data Specialist: Destinee Burgos MD, Phone: [phone] Performed at: = - [facility] [id number] Marketing Data Specialist: Destinee Burgos MD, Phone: [phone] Performed By: #### L 7400.0280 ####[facility] [address] [facility] [address] PAPSMR Comment Normal . [facility] Comment on above: Order Comment: Speci men Comment: [id number] Comment: Source.............CervixSpecimen Comment: Other..............Specimen Comment: No. of containers..01 ThinPrep Vial Result Comment: The Pap smear is a screening test designed to aid in the detection of premalignant and malignant conditions of the uterine cervix. It is not a diagnostic procedure and should not be used as the sole means of detecting cervical cancer. Both false-positive and false-negative reports do occur. Performed By: #### L 7400.0280 ####[facility] [address] [facility]. [place], [place], [id number] PERFORM Comment Normal . [facility] Comment on above: Order Comment: Speci men Comment: [id number] Comment: Source.............CervixSpecimen Comment: Other..............Specimen Comment: No. of containers..01 ThinPrep Vial Result Comment: Indira Valle, Sr. Payroll Processor Performed By: #### L 7400.0280 ####[facility] [address] [place], [address] Chlamydia/GC IVKTORIYA aptimaon CHLAMY,NUC ACID Negative Normal Negative [facility] Comment on above: Performed By: #### L 7000.1800, M100.2200, L501.0900 ####[facility] [address] [place], [address] GC BY NUC ACID Negative Normal Negative [facility] Comment on above: Result Comment: Perf ormed at: =G - [facility] [address] [id number] Marketing Data Specialist: Destinee Burgos MD, Phone: [phone] Performed By: #### L 7000.1800, M100.2200, L501.0900 ####[facility] [address] [place], [address] HIV - WCHon 05-22-2024 HIV Non-Reactive Normal Nonreactive [facility] Comment on above: Order Comment: Reaso n for Exam: Performed By: #### L 501.9985, L3890.6005, L3890.6100, L509.4005, L509.8000, L500.4050, L3890.6300, BTS, L100.0100 ####[facility] [address] [place], [address] Hepatitis B Surface Antigeno n 05-22-2024 HEP B Surf Ag Non-Reactive Normal Nonreactive [facility] Comment on above: Order Comment: Reaso n for Exam: Performed By: #### L 501.9985, L3890.6005, L3890.6100, L509.4005, L509.8000, L500.4050, L3890.6300, BTS, L100.0100 ####[facility] [address] [place], [address] Hepatitis C Antibodyon 05-22 Hepatitis C AB Non-Reactive Normal Nonreactive [facility] Comment on above: Order Comment: Reaso n for Exam: Result Comment: Non Reactive: < 0.8 Equivocal: >/= 0.8 to < 1.0 Reactive: >/= 1.0 The CDC requires that a reactive/equivocal HCV antibody result be sent out for confirmation. HCV Quant by PCR testing. Performed By: #### L 501.9985, L3890.6005, L3890.6100, L509.4005, L509.8000, L500.4050, L3890.6300, BTS, L100.0100 ####[facility] [address] [place], [address] L509.8000on 05-22-2024 Syphilis Abs Non-Reactive Normal [facility] Comment on above: Order Comment: Reaso n for Exam: Performed By: #### L 501.9985, L3890.6005, L3890.6100, L509.4005, L509.8000, L500.4050, L3890.6300, BTS, L100.0100 ####[facility] [address] [place], [address] Rubella IgGon 05-22-2024 Rubella IgG Reactive Normal Nonreactive [facility] Comment on above: Order Comment: Reaso n for Exam: Result Comment: Anti body Results Interpretation of Immune Status Non Reactive Presumed Non-Immune Equivocal Equivocal Reactive Presumed Immune Performed By: #### L 501.9985, L3890.6005, L3890.6100, L509.4005, L509.8000, L500.4050, L3890.6300, BTS, L100.0100 ####[facility] [address] [place], [address] Urine Cultureon 05-22-2024 URC Culture exhibits no growth. Normal [facility] Comment on above: Performed By: #### L 7000.1800, M100.2200, L501.0900 ####[facility] [address] [place], [address] CBC W/Diff, Automatedon 01-3 -2024 Absolute Lymph 2.34 X10 3/uL Normal 0.83-4.51 [facility] Comment on above: Performed By: #### L 501.9985, L3890.6005, L3890.6100, L509.4005, L509.8000, L500.4050, L3890.6300, BTS, L100.0100 ####[facility] [address] [place], [address] Absolute Neut 6.3 X10 3/uL Normal 2.0-7.7 [facility] Comment on above: Performed By: #### L 501.9985, L3890.6005, L3890.6100, L509.4005, L509.8000, L500.4050, L3890.6300, BTS, L100.0100 ####[facility] [address] [place], [address] Basophils/100 WBC (Bld) 0.3 % Normal 0-1 [facility] Comment on above: Performed By: #### L 501.9985, L3890.6005, L3890.6100, L509.4005, L509.8000, L500.4050, L3890.6300, BTS, L100.0100 ####[facility] [address] [place], [address] Eosinophils/100 WBC (Bld) 2.3 % Normal 0-5 [facility] Comment on above: Performed By: #### L 501.9985, L3890.6005, L3890.6100, L509.4005, L509.8000, L500.4050, L3890.6300, BTS, L100.0100 ####[facility] [address] [place], [address] Erythrocyte distribution width (RBC) [Ratio] 16.0 % High 11.6-14.6 [facility] Comment on above: Performed By: #### L 501.9985, L3890.6005, L3890.6100, L509.4005, L509.8000, L500.4050, L3890.6300, BTS, L100.0100 ####[facility] [address] [place], [address] Hematocrit (Bld) [Volume fraction] 34.5 % Low 37-47 [facility] Comment on above: Performed By: #### L 501.9985, L3890.6005, L3890.6100, L509.4005, L509.8000, L500.4050, L3890.6300, BTS, L100.0100 ####[facility] [address] [place], [address] Hemoglobin (Bld) [Mass/Vol] 11.0 g/dL Low 12.0-15.0 [facility] Comment on above: Performed By: #### L 501.9985, L3890.6005, L3890.6100, L509.4005, L509.8000, L500.4050, L3890.6300, BTS, L100.0100 ####[facility] [address] [place], [address] IG% 0.300 Normal 0.0-0.9 [facility] Comment on above: Result Comment: IG% - Immature Granulocytes (promyelocytes, myelocytes and metamyelocytes) > 1% indicates that a LEFT SHIFT is Present. Performed By: #### L 501.9985, L3890.6005, L3890.6100, L509.4005, L509.8000, L500.4050, L3890.6300, BTS, L100.0100 ####[facility] [address] [place], [address] Lymphocytes/100 WBC (Bld) 24.5 % Normal 19-41 [facility] Comment on above: Performed By: #### L 501.9985, L3890.6005, L3890.6100, L509.4005, L509.8000, L500.4050, L3890.6300, BTS, L100.0100 ####[facility] [address] [place], [address] MCH (RBC) [Entitic mass] 24.1 pg Low 27.0-32.0 [facility] Comment on above: Performed By: #### L 501.9985, L3890.6005, L3890.6100, L509.4005, L509.8000, L500.4050, L3890.6300, BTS, L100.0100 ####[facility] [address] [place], [address] MCHC (RBC) [Mass/Vol] 31.9 g/dL Low 32-36 [facility] Comment on above: Performed By: #### L 501.9985, L3890.6005, L3890.6100, L509.4005, L509.8000, L500.4050, L3890.6300, BTS, L100.0100 ####[facility] [address] [place], [address] MCV (RBC) [Entitic vol] 75.7 fL Low 81-99 [facility] Comment on above: Performed By: #### L 501.9985, L3890.6005, L3890.6100, L509.4005, L509.8000, L500.4050, L3890.6300, BTS, L100.0100 ####[facility] [address] [place], [address] Monocytes/100 WBC (Bld) 6.9 % Normal 0-10 [facility] Comment on above: Performed By: #### L 501.9985, L3890.6005, L3890.6100, L509.4005, L509.8000, L500.4050, L3890.6300, BTS, L100.0100 ####[facility] [address] [place], [address] Neutrophils/100 WBC (Bld) 65.7 % Normal 47-70 [facility] Comment on above: Performed By: #### L 501.9985, L3890.6005, L3890.6100, L509.4005, L509.8000, L500.4050, L3890.6300, BTS, L100.0100 ####[facility] [address] [place], [address] Nucleated RBC (Bld) [#/Vol] 0 10*3/uL Normal 0-5 [facility] Comment on above: Performed By: #### L 501.9985, L3890.6005, L3890.6100, L509.4005, L509.8000, L500.4050, L3890.6300, BTS, L100.0100 ####[facility] [address] [place], [address] Platelet mean volume (Bld) [Entitic vol] 11.2 fL Normal 6.2-12.0 [facility] Comment on above: Performed By: #### L 501.9985, L3890.6005, L3890.6100, L509.4005, L509.8000, L500.4050, L3890.6300, BTS, L100.0100 ####[facility] [address] [place], [address] Platelets (Bld) [#/Vol] 294 10*3/uL Normal 150-450 [facility] Comment on above: Performed By: #### L 501.9985, L3890.6005, L3890.6100, L509.4005, L509.8000, L500.4050, L3890.6300, BTS, L100.0100 ####[facility] [address] [place], [place], [phone] RBC (Bld) [#/Vol] 4.56 10*6/uL Normal 4.2-5.4 [facility] Comment on above: Performed By: #### L 501.9985, L3890.6005, L3890.6100, L509.4005, L509.8000, L500.4050, L3890.6300, BTS, L100.0100 ####[facility] [address] [place], [place], [phone](074) RDW SD 43.9 fl Normal 35.1-43.9 [facility] Comment on above: Performed By: #### L 501.9985, L3890.6005, L3890.6100, L509.4005, L509.8000, L500.4050, L3890.6300, BTS, L100.0100 ####[facility] [address] [place], [place], [id number] WBC (Bld) [#/Vol] 9.6 10*3/uL Normal 4.4-11.0 [facility] Comment on above: Performed By: #### L 501.9985, L3890.6005, L3890.6100, L509.4005, L509.8000, L500.4050, L3890.6300, BTS, L100.0100 ####[facility] [address] [place], [place], [id number] Comprehensive Metabolic Prof ilon 05-21-2024 Albumin [Mass/Vol] 3.2 g/dL Normal 3.2-5.0 [facility] Comment on above: Performed By: #### L 501.9985, L3890.6005, L3890.6100, L509.4005, L509.8000, L500.4050, L3890.6300, BTS, L100.0100 ####[facility] [address] [place], [address] Albumin/Globulin [Mass ratio] 0.8 {ratio} Low 0.9-2.4 [facility] Comment on above: Performed By: #### L 501.9985, L3890.6005, L3890.6100, L509.4005, L509.8000, L500.4050, L3890.6300, BTS, L100.0100 ####[facility] [address] [place], [address] ALK P 107 U/L Normal 45-117 [facility] Comment on above: Performed By: #### L 501.9985, L3890.6005, L3890.6100, L509.4005, L509.8000, L500.4050, L3890.6300, BTS, L100.0100 ####[facility] [address] [place], [address] ALT [Catalytic activity/Vol] 18 U/L Normal 13-56 [facility] Comment on above: Performed By: #### L 501.9985, L3890.6005, L3890.6100, L509.4005, L509.8000, L500.4050, L3890.6300, BTS, L100.0100 ####[facility] [address] [place], [address] AST [Catalytic activity/Vol] 8 U/L Low 15-37 [facility] Comment on above: Performed By: #### L 501.9985, L3890.6005, L3890.6100, L509.4005, L509.8000, L500.4050, L3890.6300, BTS, L100.0100 ####[facility] [address] [place], [address] Bilirubin [Mass/Vol] 0.30 mg/dL Normal 0.20-1.00 [facility] Comment on above: Result Comment: For patients on eltrombopag therapy, use of Dimension [place] TBIL is not recommended. Performed By: #### L 501.9985, L3890.6005, L3890.6100, L509.4005, L509.8000, L500.4050, L3890.6300, BTS, L100.0100 ####[facility] [address] [place], [address] BUN/CRE 9.9 RATIO Low 10-20 [facility] Comment on above: Performed By: #### L 501.9985, L3890.6005, L3890.6100, L509.4005, L509.8000, L500.4050, L3890.6300, BTS, L100.0100 ####[facility] [address] [place], [address] CA,Total 9.0 mg/dL Normal 8.5-10.1 [facility] Comment on above: Performed By: #### L 501.9985, L3890.6005, L3890.6100, L509.4005, L509.8000, L500.4050, L3890.6300, BTS, L100.0100 ####[facility] [address] [place], [address] Chloride [Moles/Vol] 104 mmol/L Normal 98-107 [facility] Comment on above: Performed By: #### L 501.9985, L3890.6005, L3890.6100, L509.4005, L509.8000, L500.4050, L3890.6300, BTS, L100.0100 ####[facility] [address] [place], [address] CO2 [Moles/Vol] 25.0 mmol/L Normal 21.0-32.0 [facility] Comment on above: Performed By: #### L 501.9985, L3890.6005, L3890.6100, L509.4005, L509.8000, L500.4050, L3890.6300, BTS, L100.0100 ####[facility] [address] [place], [place], [phone] Creatinine [Mass/Vol] 0.61 mg/dL Normal 0.55-1.02 [facility] Comment on above: Result Comment: The validity of the calculated GFR GFRAA in patients over 70 years has not been determined. Clinical correlation is essential. Performed By: #### L 501.9985, L3890.6005, L3890.6100, L509.4005, L509.8000, L500.4050, L3890.6300, BTS, L100.0100 ####[facility] [address] [place], [address](084 EST GFR - AA 148 mL/min Normal >60 [facility] Comment on above: Result Comment: Afri can Peruvian GFR Calc Performed By: #### L 501.9985, L3890.6005, L3890.6100, L509.4005, L509.8000, L500.4050, L3890.6300, BTS, L100.0100 ####[facility] [address] [place], [address] GAP 7 Normal 5-15 [facility] Comment on above: Performed By: #### L 501.9985, L3890.6005, L3890.6100, L509.4005, L509.8000, L500.4050, L3890.6300, BTS, L100.0100 ####[facility] [address] [place], [address] GFR/1.73 sq M.predicted among non-blacks MDRD (S/P/Bld) [Vol rate/Area] 123 mL/min/{1.73_m2} Normal >60 [facility] Comment on above: Result Comment: Non- GFR Calc Performed By: #### L 501.9985, L3890.6005, L3890.6100, L509.4005, L509.8000, L500.4050, L3890.6300, BTS, L100.0100 ####[facility] [address] [place], [address] Globulin (S) [Mass/Vol] 4.0 g/dL Normal 2.2-4.2 [facility] Comment on above: Performed By: #### L 501.9985, L3890.6005, L3890.6100, L509.4005, L509.8000, L500.4050, L3890.6300, BTS, L100.0100 ####[facility] [address] [place], [address] Glucose [Mass/Vol] 77 mg/dL Normal 74-106 [facility] Comment on above: Performed By: #### L 501.9985, L3890.6005, L3890.6100, L509.4005, L509.8000, L500.4050, L3890.6300, BTS, L100.0100 ####[facility] [address] [place], [address] Potassium [Moles/Vol] 4.0 mmol/L Normal 3.5-5.1 [facility] Comment on above: Performed By: #### L 501.9985, L3890.6005, L3890.6100, L509.4005, L509.8000, L500.4050, L3890.6300, BTS, L100.0100 ####[facility] [address] [place], [address] Sodium [Moles/Vol] 136 mmol/L Normal 136-145 [facility] Comment on above: Performed By: #### L 501.9985, L3890.6005, L3890.6100, L509.4005, L509.8000, L500.4050, L3890.6300, BTS, L100.0100 ####[facility] [address] [place], [address] T PROT 7.2 g/dL Normal 6.4-8.2 [facility] Comment on above: Performed By: #### L 501.9985, L3890.6005, L3890.6100, L509.4005, L509.8000, L500.4050, L3890.6300, BTS, L100.0100 ####[facility] [address] [place], [address] Urea nitrogen [Mass/Vol] 6 mg/dL Low 7-18 [facility] Comment on above: Performed By: #### L 501.9985, L3890.6005, L3890.6100, L509.4005, L509.8000, L500.4050, L3890.6300, BTS, L100.0100 ####[facility] [address] [place], [address] Hemoglobin A1con 05-21-2024 HbA1c (Bld) [Mass fraction] 5.3 % Normal 3.8-5.6 [facility] Comment on above: Result Comment: Norm al < 5.7 % Prediabetic 5.7 - 6.4 % Diabetic >or= 6.5 % Please note range changes. Performed By: #### L 501.9985, L3890.6005, L3890.6100, L509.4005, L509.8000, L500.4050, L3890.6300, BTS, L100.0100 ####[facility] [address] [place], [place], [id number] Drawer In Jacquard Loom Office Visit Reporton 05-21-2024 Drawer In Jacquard Loom Office Visit Report [facility]'[address], [address] [place] [address] OFFICE VISIT Date of Service: 05/21/24 MR#: [id number] Acct: [id number] Name: CRISTELA SHAH Rep #: [id number] : 1995 Provider: Dr. Gay Gifford DO Age/Sex: 28/F [place] [facility] Status: Signed Intake Vital Signs 09/14/23 05:03 05/07/24 09:31 05/21/24 10:18 05/21/24 10:18 Height 5 ft 4 in 5 ft 4 in 5 ft 4 in 5 ft 4 in Weight: 226 lb 6 oz BMI 38.8 BP 136/88 H Intake Visit Reasons: NOB Mammalogist Required: No Is patient in pain?: No Allergies No Known Allergies Allergy (Verified 05/21/24 10:17) Medications ???Medication ???Instructions ???Recorded ???Confirmed ???Type citalopram 40 mg tablet 40 mg PO DAILY depression #30 tabs 09/09/22 05/21/24 Rx pantoprazole 20 mg tablet,delayed 40 mg (2 x 20 mg) PO BID #60 12/2005/21/24 Rx release TABLETS labetalol 100 mg tablet 100 mg PO BID 03/11/24 05/21/24 Hi story PNV 153-FA 400 mcg-om3 35 mg-dha tab PO 05/07/24 05/21/24 History 25 mg-epa 5 mg-fish oil chew tablet ondansetron 4 mg disintegrating 4 mg PO Q8H PRN nausea and 5 05/21/24 Rx tablet vomiting #60 tabs Last Menstrual Period: 03/17/24 Zika: Zika virus screening: Negative : No PFSH PFSH Medical History Supervision of high risk , antepartum PONV (postoperative nausea and vomiting) Anemia Anxiety Wears contact lenses Wears glasses Low iron Heartburn Non-smoker Hypertension Severely increased blood pressure and swelling during Breech presentation Gestational hypertension Obesity affecting Abnormality of hormone Depression Surgical History History of esophagogastroduodenos copy (EGD) Status post section Family History Father Hypertension Social History adopted: No household members: spouse and children housing: house number of children: 1 current occupational status: employed current occupation: [employer] current occupational exposures/hazards: No pets and animals: Yes (2) pets and animals: dog(s) history of recent travel: Yes (- February) out of state: Yes out of country: No sexually active: Yes Smoking Status: Never smoker alcohol intake: current details: social not while substance use type: does not use well-balanced diet: daily or most days caffeine: Yes Type: carbonated beverages Number of servings: 1 eating out: 4 or more times/week during the past year weight has: decreased > 10 lbs what type of physical activity do you participate in: none deloris/gnosticist: Restoration seatbelt use: always do you feel safe at home: Yes 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 Date Name GA/Weeks Outcome Route Bth Weight Gen Labor Lgth Anesthesia Del Locatn Provider FOB 09/04/22 Jessica 37 live - full term 6lbs Male spinal [facility] Delivery Date: 09/04/22 Last Updated by: Abigail Reed HPI NOB LMP / Details: CRISTELA SHAH is a 28 year old who presents for New OB visit. OB Visit MIKE Calculator Estimated Delivery Date Method Current WG Current Estimate 12/22/24 LMP (Certain) 9w 2d Other Estimates 12/24/24 Ultrasound #1 9w 0d Comments: HIV: Urine Culture: Sequential Screen: NIPT Screen: Estimated Due Date: 09/25/22 Expected Delivery Route/Plan prior cs. needs delivered at 38 weeks. but if goes into labor on her own wants to . Specific Issue/Plans Covid status: [] Flu vaccine: [] Tdap vaccine: [] Rhogam: [] LARC form signed: [] Problem list reviewed and updated with the most current plan of care details and appropriate orders placed. Relevant counseling for the gestational age provided. Continue routine care and follow up unless otherwise noted in visit notes/problem list details Initial Weight: Not Recorded Date -???-???-???-???-???-? ??-???-???-???-???-??? -???- EGA Weight BP Urine Prot -???-???-???-???-???-? ??-???-???-???-???-??? -???- Glucose FHR FuHt Pres Dilation -???-???-???-???-???-? ??-???-???-???-???-??? -???- Effaced St Visit Note 05/21/24 -???-???-???-???-???-? ??-???-???-???-???-??? -???- 9w 2d 226 lb 6 oz 136/88 -???-???-???-???-???-? ??-???-???-???-???-??? -???- 184 -???- (more content not included)... Normal [facility] Protein+Creatinine Ratio,Uri neon 05-21-2024 PROT:CRE RATIO 138 mg/g CRE Normal 0-200 [facility] Comment on above: Performed By: #### L 7000.1800, M100.2200, L501.0900 ####[facility] [address] [place], [address] Protein (U) [Mass/Vol] 6.1 mg/dL Normal <11.9 [facility] Comment on above: Performed By: #### L 7000.1800, M100.2200, L501.0900 ####[facility] [address] [place], [address] UR CREAT 44.30 mg/dL Normal NO RANGE EST. [facility] Comment on above: Performed By: #### L 7000.1800, M100.2200, L501.0900 ####[facility] [address] [place], [address] Type AND Screenon 05-21-2024 Ab SCREEN GEL Negative Normal [facility] Comment on above: Order Comment: PN Performed By: #### L 501.9985, L3890.6005, L3890.6100, L509.4005, L509.8000, L500.4050, L3890.6300, BTS, L100.0100 ####[facility] [address] [place], [place], [address] Drawer In Jacquard Loom Office Visit Reporton 05-07-2024 Drawer In Jacquard Loom Office Visit Report [facility] [address], [address] [place] [address] OFFICE VISIT Date of Service: 05/07/24 MR#: [id number] Acct: [id number] Name: CRISTELA SHAH Rep #: [id number] : 1995 Provider: Dr. Gay Gifford DO Age/Sex: 28/F [place] [facility] Status: Signed Intake Vital Signs 09/14/23 05:03 05/07/24 09:30 05/07/24 09:31 Height 5 ft 4 in 5 ft 4 in 5 ft 4 in Weight: 221 lb 8 oz BMI 38.0 BP 137/84 H Intake Visit Reasons: bleeding in early per Mammalogist Required: No Is patient in pain?: No Allergies No Known Allergies Allergy (Verified 05/07/24 09:29) Medications ???Medication ???Instructions ???Recorded ???Confirmed ???Type citalopram 40 mg tablet 40 mg PO DAILY depression #30 tabs 09/09/22 05/07/24 Rx pantoprazole 20 mg tablet,delayed 40 mg (2 x 20 mg) PO BID #60 01/05/24 05/07/24 Rx release TABLETS ondansetron 4 mg disintegrating 4 mg PO Q8H PRN nausea and 03/09/24 05/07/24 Rx tablet vomiting #90 tabs labetalol 100 mg tablet 100 mg PO BID 03/11/24 05/07/24 History Is last menstrual period known: Yes Last Menstrual Period: 03/17/24 Post menopausal: No Patient : Yes : No PFSH Medical History (Updated 05/07/24 @ 09:38 by Ciera Fields) Supervision of high risk , antepartum PONV (postoperative nausea and vomiting) Anemia Anxiety Wears contact lenses Wears glasses Low iron Heartburn Non-smoker Hypertension care and examination Severely increased blood pressure and swelling during Breech presentation Gestational hypertension Anemia in preg-unspec Obesity affecting Abnormality of hormone Depression Surgical History History of esophagogastroduodenos copy (EGD) Status post section Family History Father Hypertension Other Colon cancer Diabetes Heart disease Social History adopted: No household members: spouse housing: house current occupational status: employed current occupation: [employer] pets and animals: Yes pets and animals: dog(s) history of recent travel: No Smoking Status: Never smoker alcohol intake: former details: social not while substance use type: does not use well-balanced diet: daily or most days caffeine: No eating out: 4 or more times/week during the past year weight has: decreased > 10 lbs deloris/gnosticist: Restoration seatbelt use: always do you feel safe at home: Yes 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 She has not received an ultrasound or a new ob visit. Female Reproductive History Last Menstrual Period: 03/17/24 History 2 Elective abortions Hx Para 1 Spontaneous abortions Hx # Term Pregnancies Ectopic pregnancies Hx # Pregnancies Multiple births # of living children 1 Past Pregnancies Del. Date Name GA/Weeks Outcome Route Bth Weight Infant Gen Labor Lgth Anesthesia Del Locatn Provider FOB 09/04/22 Jessica 37 live - full term 6lbs Male spinal [facility] [address] [facility] Delivery Date: 09/04/22 Last Updated by: Abigail Reed ROS Const ROS Unobtainable: All systems reviewed are unremarkable except as noted in H Resp Resp: Reports system reviewed and no additional complaints, except as documented; Denies cough GI GI: Reports as per HPI Psych Psych: Reports system reviewed and no additional complaints, except as documented Exam Const General: cooperative, healthy appearing, comfortable and no acute distress Resp Effort Inspection: normal respiratory effort General: bimanual renal exam normal bilaterally External Female Exam: normal appearance of the urethra Urethra: normal appearance of the urethra Speculum Exam - Vagina: normal appearance of the vagina Speculum Exam - Cervix: normal appearance of the cervix Bimanual Exam- Adnexa, other: normal adnexae and normal Pelvic Support: normal Other: IUP measuring 7 weeks 0 days. 2 fibrois in the myometrium noted. heart tones 160's Skin General: no rashes or lesions noted Psych Appearance: grossly normal Speech and Movement: speech and movement normal Coding Level of Care Code Off vis,est,level 3 Diagnoses Bleeding in early O20.9 Supervision of high risk , antepartum O09.90 Assessment and Plan Assessment and Plan (1) Bleeding in early : Status: Acute (2) Supervision of high risk , antepartu (more content not included)... Normal [facility] ED Prov Noteon 05-06-2024 ED Prov Note ED PROVIDER NOTE [facility] NAME: Jazlyn Shah AGE: 28 y.o. : 1995 VISIT DATE: 05/06/2024 CSN: [id number] PCP: No, Physician Chief Complaint Patient presents with Abdominal Cramping Chief complaint vaginal bleeding history of present illness this is a 28-year-old female who is going to be delivering at [facility] her OB is Dr. Kulkarni. She is here with a 7-week with bilateral cramping passing clots that are quarter size pinkish material and some brownish discharge this been going on for some time but no significant abdominal pain She denies a history of tubal she is O+ blood type Past Medical History: Diagnosis Date Asthma Hypertension Past Surgical History: Procedure Laterality Date SECTION History reviewed. No pertinent family history. Social History Socioeconomic History Marital status: Tobacco Use Smoking status: Never Smokeless tobacco: Never Vaping Use Vaping status: Never Used Substance and Sexual Activity Alcohol use: Yes Comment: "socially" Drug use: Never Previous Medications Medication Sig citalopram (CELEXA) 40 MG tablet Take 1 (one) tablet (40 mg total) by mouth daily . labetaloL (NORMODYNE) 100 MG tablet Take 1 (one) tablet (100 mg total) by mouth 2 (two) times a day . pantoprazole (PROTONIX) 40 MG tablet Take 1 (one) tablet (40 mg total) by mouth daily . vitamin with Ca-Iron-FA 27-1 mg Tab Take 1 (one) tablet by mouth daily . No Known Allergies Review of Systems All other systems reviewed and are negative. No data found. Physical Exam Vitals and nursing note reviewed. Exam conducted with a social economist present. Constitutional: Appearance: Normal appearance. She is normal weight. HENT: Head: Normocephalic and atraumatic. Mouth/Throat: Mouth: Mucous membranes are dry. Cardiovascular: Rate and Rhythm: Normal rate and regular rhythm. Musculoskeletal: General: Normal range of motion. Pulmonary: Effort: Pulmonary effort is normal. Breath sounds: Normal breath sounds. Abdominal: General: Abdomen is flat. Bowel sounds are normal. Palpations: Abdomen is soft. Neurological: Mental Status: She is alert. Laboratory & Radiographic Imaging (if done): No results found for this visit on 05/06/24. No orders to display Procedures Medical Decision Making Differential diagnosis Miscarriage Viable intrauterine demise Tubal Considering the above offered transfer to [facility] IV fluids and blood work and ultrasound to be done there patient declined rather have go to was try made suggestion that we should make arrangements for transfer she declined she said she will go there herself., Witnessed by family member at the bedside Risk Risk Details: Lubna burleson aware . . Clinical Impression: 1. First trimester bleeding ED Disposition ED Disposition Discharge Condition Stable Comment Jazlyn Shah discharged to home/self care in stable condition. Follow-up Information Follow-up information has not been specified. Contact information for after-discharge care Follow-up information has not been specified. Gayle Arreola MD 05/06/24 1431 AUTHENTICATED BY GAYLE ARREOLA, ON 05/06/2024 14:31:32 [facility] Breast Limited Unilateralon 03-09-2024 Breast Limited Unilateral [facility] Imaging Services [address] [place], [place] [id number] Breast Limited Unilateral MR#: [id number] Acct: [id number] Name: CRISTELA SHAH Rep #: [id number] : 1995 F 28 From: Boris appiah MD PCP: Dr. Rosanna Scales DO Status: REG CLI Study: Breast Limited Unilateral Date of Exam: Exam# [id number] Ordering Dr: Rosanna Scales DO [id number] STUDY: ULTRASOUND BREAST - RIGHT REASON FOR EXAM: Female, 28 years old. Palpable lump in the right breast. TECHNIQUE: Axial and longitudinal images of the RIGHT breast were performed with a high resolution ultrasound transducer. # OF IMAGES: 23 COMPARISON: Comparison is made with prior mammogram done earlier in the day. FINDINGS: RIGHT Breast: The medial central aspect of the right breast was examined with ultrasound. No sonographic abnormality is seen. IMPRESSION: No sonographic abnormality is seen. ASSESSMENT CATEGORY: BIRADS Category 1: Negative. A letter regarding these results will be sent to the patient by the facility within 30 days. Electronically Signed: Boris Sierra MD at 11:20 EST , [id number] STUDY: ULTRASOUND BREAST - LEFT REASON FOR EXAM: Female, 28 years old. Palpable lump left breast. TECHNIQUE: Axial and longitudinal images of the LEFT breast were performed with a high resolution ultrasound transducer. # OF IMAGES: 23 COMPARISON: Comparison is made with prior mammogram done earlier today. FINDINGS: LEFT Breast: The central lateral aspect of the left breast was examined with ultrasound. No sonographic abnormality is seen. US/Breast Limited Unilateral IMPRESSION: No sonographic abnormality is seen. ASSESSMENT CATEGORY: BIRADS Category 1: Negative. A letter regarding these results will be sent to the patient by the facility within 30 days. Electronically Signed: Boris Sierra MD at 11:20 EST Reading Location ID and State: [address] [place] [address] , Service support , CC: Dr. Rosanna Scales DO Fuel Cell Designer: Signed Normal [facility] DIAG MAMM W/CAD, BILATon DIAG MAMM W/CAD, [facility] Imaging Services [address] [place] [address] [id number] DIAG MAMM W/CAD, BILAT MR#: [id number] Acct: [id number] Name: CRISTELA SHAH Rep #: [id number] : 1995 F 28 From: Boris appiah MD PCP: Dr. Rosanna Scales DO Status: REG CLI Study: DIAG MAMM W/CAD, BILAT Date of Exam: 03/09/24 Exam# [id number] Ordering Dr: Rosanna Scales DO [id number] MAMMOGRAPHY - BILATERAL DIAGNOSTIC REASON FOR EXAM: Female, 28 years old. Six-month history of bilateral breast lumps. PERTINENT HISTORY: Non-contributory. TECHNIQUE: Digital bilateral breast basim (3D mammographic acquisition) in the CC and MLO projections. 2-D mediolateral oblique (MLO) and craniocaudad (CC) views of both breasts were obtained. CAD: Full Field Digital Mammography with Computer Added Detection was performed. COMPARISON: Comparison is made with prior study dated October 31, 2017. FINDINGS: Breast Composition: There are scattered areas of fibroglandular density. There are no dominant masses or suspicious calcifications. No other significant abnormalities are identified. There has been no significant change since the prior study. BI/DIAG MAMM W/CAD, BILAT IMPRESSION: Stable bilateral diagnostic mammogram. With the patient''s history of bilateral breast lumps, targeted sonographic correlation recommended. ASSESSMENT CATEGORY: BIRADS Category 0: Incomplete. Need additional imaging evaluation. A letter regarding these results will be sent to the patient by the facility within 30 days. Approximately 10% of breast cancers are not detected by mammography. A normal mammogram should not delay biopsy of a clinically suspicious abnormality. Electronically Signed: Boris Sierra MD at 10:00 EST Reading Location ID and State: [address] [place] [address] , Service support , CC: Dr. Rosanna Scales DO Fuel Cell Designer: Signed Normal [facility] Gallbladderon 03-04-2024 [facility] Imaging Services [address] [place] [address] [id number] Gallbladder MR#: [id number] Acct: [id number] Name: CRISTELA SHAH Rep #: [id number] : 1995 F 28 From: Caden Gann MD PCP: Dr. Rosanna Scales DO Status: REG CLI Study: Gallbladder Date of Exam: 03/04/24 Exam# [id number] Ordering Dr: Rosanna Scales DO [id number] INDICATION: RUQ PAIN EXAMINATION: Ultrasound US Abdomen Limited (quadrant) TECHNIQUE: Suarez scale and color doppler imaging was performed of the right upper quadrant. COMPARISON: 06/02/2020 ultrasound. FINDINGS: LIVER: Normal echotexture. No evidence of a mass. No intrahepatic duct dilation. GALLBLADDER: Mildly distended. No evidence of a stone or sludge. Normal wall thickness. No pericholecystic fluid. Negative sonographic Pritchard''s sign. COMMON BILE DUCT: Normal measuring 3 mm in diameter. PANCREAS: Visualized portions of the pancreas appear normal. RIGHT KIDNEY: Unremarkable. FREE FLUID: No free fluid in the right upper quadrant. US/Gallbladder IMPRESSION: Normal right upper quadrant ultrasound. Electronically Signed: Caden Gann DO at 22:10 EST Reading Location ID and State: [facility] / [place] Tel , Service support , CC: Dr. Rosanna Scales DO Fuel Cell Designer: Signed Normal [facility] Gastroenterology Visit Repor ton 02-02-2024 Gastroenterology Visit Report [facility] Gastroenterology [address] [place] [address] OFFICE VISIT Date of Service: 02/02/24 MR#: [id number] Acct: [id number] Name: CRISTELA SHAH Rep #: [id number] : 1995 Provider: VALERIA Cai Age/Sex: 28/F Location: [facility]MS.[facility]I Status: Signed Intake Vital Signs 12/05/22 10:13 09/14/23 05:03 Height 5 ft 4 in 5 ft 4 in Intake Visit Reasons: 6 month f/u Chief Complaint: Dysphagia Allergies No Known Allergies Allergy (Verified 12/02/22 10:14) Have you fallen in the past year?: No Nurse's Note: OV 02.02.24 Pt here for a f/u dysphagia. Pt had an EGD . Denies N/V/D/C. Pt takes pantoprazole daily. [facility] Medical History (Updated 02/02/24 @ 15:38 by VALERIA Cai) Anemia Anxiety Wears contact lenses Wears glasses Low iron Heartburn Non-smoker Hypertension care and examination Severely increased blood pressure and swelling during Breech presentation Gestational hypertension Anemia in preg-unspec Obesity affecting Supervision of high risk , antepartum Abnormality of hormone Depression Surgical History Status post section Family History Father Hypertension Other Colon cancer Diabetes Heart disease Social History adopted: No household members: spouse housing: house current occupational status: employed current occupation: [employer] pets and animals: Yes pets and animals: dog(s) history of recent travel: No Smoking Status: Never smoker alcohol intake: former details: social not while substance use type: does not use well-balanced diet: daily or most days caffeine: No eating out: 4 or more times/week during the past year weight has: decreased > 10 lbs deloris/gnosticist: Restoration seatbelt use: always do you feel safe at home: Yes 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 US RUQ 2.12.21 without acute/chronic finding. ? HIDA 06.12.20 EF 95% without reflux into common hepatic duct. 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 She underwent 09.04.22 r/t breech presentation. *BGI established 09.12.22 with dysphagia during PO intake with emesis; onset several years prior with worsening frequency in the last year. Denies history of EGD or studies performed. ? Biochemical celiac, GAME, ROD comp without pertinent abnormality. ? pANCA H1:20 ? RAST low/equivocal corn, soybean; low peanut; high whole egg, wheat; very high cow milk. Environmental allergies include weeks, trees, grass, cat and dog. Contact, portal 09.18.22 with bloodwork results. Avoid food allergies and will retest ANCA in the future. 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 OV 01.17.23 when she eats food sensitivities she does have GI issues. History of asthma. OV 07.22.23- Pt reports she has not started taking Pantoprazole as she is concerned it is a steroid. Has not made an appointment with allergy yet. Continues to have swallowing issues. Is afraid to eat in public as she doesn't want to choke. OV 02.02.24 Pt is having worsening swallowing issues with episodes requiring her to vomit the food. After dilation in 2022 it improved and she feels she may need it again. She won't eat in public as she doesn't want to choke. She saw the pouako kura ka[place] maori and was told to avoid the allergies. Has been taking the pantoprazole but noticed much of a difference. She also admitted to constipation that has been ongoing for years with one bowel movement per week. She has tried OTC medications and these just make her nauseous. ROS Const Constitutional: Positive for fatigue and headache(s); No fever(s) or weight change ENT ENT: Positive for headache(s) and difficulty swallowing Gastro GI: Positive for heartburn, difficulty swallowing and nausea/dyspepsia; No abdominal pain, belching, bloating, change in bowel habits, change in stool character, coffee ground emesis, constipation, cramping, diarrhea, feeling full early, excessive flatus, incontinent of stools, Vomiting blood/hematemesis, Blood in stool, loose stools, B (more content not included)... Normal [facility] CNCOon 08-21-2023 CNCO Letter Text Normal [facility] Laboratory - Chemistry and C hemistry - challengeOrdered By: Antwan Gonzalez on 12-05-2022 HCG ( test) Ql (U) Negative [facility] Comment on above: Very dilute urine sp ecimens, as indicated by a low specificgravity, may not contain b2b outside sales representative levels of hCG. If is still suspected, a first morning urinespecimen should be collected 48 hours later and tested. Alternaria alternata IgE ser umOrdered By: Justino Mast on 09-12-2022 A. alternata IgE Qn (S) 0.44 kU/L Class I [facility] Atypical perinuclear antineu trophil cytoplasmic antibodies measurementOrdered By: Justino Mast on 09-12-2022 Neutrophil cytoplasmic Ab.perinuclear.atypica l IF (S) [Titer] <1:20 titer Neg:<1:20 [facility] Comment on above: The atypical pANCA p attern has been observed in asignificant percentage of patients with ulcerative colitis,primary sclerosing cholangitis and autoimmune hepatitis. Basophil percentageOrdered B y: Justino Mast on 09-12-2022 Basophil percentage < 0.2 AI 0.0-0.9 [facility] Chocolate RASTOrdered By: Ra coy Mast on 09-12-2022 Chocolate IgE Qn (S) <0.10 kU/L Class 0 [facility] Comment on above: Performed at: - [facility] [id number] [place], [place] [id number] Director: Alvin Porter PhD, Phone: [phone] at: [facility] [address] [id number] Director: Kristin Quach MD, Phone: [phone] Laboratory - Miscellaneous t estsOrdered By: Justino Mast on 09-12-2022 Service comment (Unsp spec) [Interp] Comment . [facility] Comment on above: Levels of Specific I gE Class Description of Class ----- < 0.10 0 Negative 0.10 - 0.31 0/I Equivocal/Low 0.32 - 0.55 I Low 0.56 - 1.40 II Moderate 1.41 - 3.90 III High 3.91 - 19.00 IV Very High 19.01 - 100.00 V Very High >100.00 Very High No Panel InformationOrdered By: Justino Mast on 09-12-2022 Centromere B Antibody <0.2 AI 0.0-0.9 [facility] Common Ragweed (Short) Allergen 0.96 kU/L Class II [facility] Endomysial IgA Antibody Negative Negative [facility] Armenian Plantain Allergen (RAST) 0.15 kU/L Class 0/I [facility] Immunoglobulin E 151 IU/mL 6-495 [facility] Mouse Urine Allergen IgE Antibody <0.10 kU/L Class 0 [facility] LIGHT RAIL TRAIN OPERATOR Antibody 0.3 AI 0.0-0.9 [facility] Seafood Group Allergens (RAST) Negative . [facility] Comment on above: Allergens in this mi x are: Blue mussel Fish Garner Shrimp Tuna Serum Bermuda grass IgE anti body assay (units/volume)Ordered By: Justino Mast on 09-12-2022 Bermuda grass IgE Qn (S) 0.66 kU/L Class II [facility] Serum DNA double strand anti body assay (units/volume)Ordered By: Justino Mast on 09-12-2022 DNA double strand Ab Qn (S) 1 [IU]/mL 0-9 [facility] Comment on above: Negative <5 Equivoca l 5 - 9 Positive >9 Serum Dermatophagoides farin ae specific IgE antibody assay (units/volume)Ordered By: Justino Mast on 09-12-2022 Peruvian house dust mite IgE Qn (S) <0.10 kU/L Class 0 [facility] Serum house dust mi te IgE antibody assay (units/volume)Ordered By: Justino Mast on 09-12-2022 house dust mite IgE Qn (S) <0.10 kU/L Class 0 [facility] Serum Tamar-1 antibody assay (u nits/volume)Ordered By: Justino Mast on 09-12-2022 Tamar-1 extractable nuclear Ab Qn (S) <0.2 AI 0.0-0.9 [facility] Serum [place] blue grass Ig E antibody assay (units/volume)Ordered By: Justino Mast on 09-12-2022 [place] blue grass IgE Qn (S) 12.60 kU/L Class IV [facility] Serum Scl-70 extractable nuc lear antibody assay (units/volume)Ordered By: Justino Mast on 09-12-2022 SCL-70 extractable nuclear Ab Qn (S) <0.2 AI 0.0-0.9 [facility] Serum Valle extractable nucl ear antibody detectionOrdered By: Justino Mast on 09-12-2022 Valle extractable nuclear Ab Ql (S) <0.2 AI 0.0-0.9 [facility] Serum beef IgE antibody assa y (units/volume)Ordered By: Justino Mast on 09-12-2022 Beef IgE Qn (S) <0.10 kU/L Class 0 [facility] Serum cat dander IgE antibod y assay (units/volume)Ordered By: Justino Mast on 09-12-2022 Cat dander IgE Qn (S) 0.36 kU/L Class I [facility] Serum classic neutrophil cyt oplasmic antibody assay (units/volume)Ordered By: Justino Mast on 09-12-2022 Neutrophil cytoplasmic Ab.classic Qn (S) <1:20 titer Neg:<1:20 [facility] Serum corn IgE antibody assa y (units/volume)Ordered By: Justino Mast on 09-12-2022 Covert IgE Qn (S) 0.15 kU/L Class 0/I [facility] Serum cow milk IgE antibody assay (units/volume)Ordered By: Justino Mast on 09-12-2022 Cow milk IgE Qn (S) 5.90 kU/L Class IV [facility] Serum dog epithelium IgE ant ibody assay (units/volume)Ordered By: Justino Mast on 09-12-2022 Dog epithelium IgE Qn (S) 0.37 kU/L Class I [facility] Serum or plasma IgA measurem ent (mass/volume)Ordered By: Justino Mast on 09-12-2022 IgA [Mass/Vol] 192 mg/dL 87-352 [facility] Serum or plasma IgG measurem ent (mass/volume)Ordered By: Justino Mast on 09-12-2022 IgG [Mass/Vol] 680 mg/dL [phone] [facility] Serum or plasma IgM measurem ent (mass/volume)Ordered By: Justino Mast on 09-12-2022 IgM [Mass/Vol] 151 mg/dL 26-217 [facility] Comment on above: Performed at: - [address] [id number] Director: Alvin Porter PhD, Phone: [phone] at: [facility] [address] [id number] Director: Kristin Quach MD, Phone: [phone] Serum peanut IgE antibody as say (units/volume)Ordered By: Justino Mast on 09-12-2022 Peanut IgE Qn (S) 0.43 kU/L Class I [facility] Serum perinuclear neutrophil cytoplasmic antibody titer by immunofluorescenceOrdered By: Justino Mast on 09-12-2022 Neutrophil cytoplasmic Ab.perinuclear IF (S) [Titer] 1:20 titer Neg:<1:20 [facility] Comment on above: The presence of posi tive fluorescence exhibiting P-ANCA orC-ANCA patterns alone is not specific for the diagnosis ofWegener's Granulomatosis (WG) or microscopic polyangiitis.Decisions about treatment should not be based solely onANCA IFA results. The International ANCA Group Consensusrecommends follow up testing of positive sera with both MO-3 and MPO-ANCA enzyme immunoassays. As many as 5% serumsamples are positive only by EIA. Ref. AM J Clin [id number];111:507-513. Serum pork IgE antibody assa y (units/volume)Ordered By: Justino Mast on 09-12-2022 Pork IgE Qn (S) <0.10 kU/L Class 0 [facility] Serum soybean IgE antibody a ssay (units/volume)Ordered By: Justino Mast on 09-12-2022 Soybean IgE Qn (S) 0.24 kU/L Class 0/I [facility] Serum tissue transglutaminas e IgA antibody assay (units/volume)Ordered By: Justino Mast on 09-12-2022 tTG IgA Qn (S) <2 U/mL 0-3 [facility] Comment on above: Negative 0 - 3 Weak Positive 4 - 10 Positive >10 Tissue Transglutaminase (tTG) has been identified as the endomysial antigen. Studies have demonstr- ated that endomysial IgA antibodies have over 99% specificity for gluten sensitive enteropathy. Serum wheat IgE antibody ass ay (units/volume)Ordered By: Justino Mast on 09-12-2022 Wheat IgE Qn (S) 2.29 kU/L Class III [facility] Serum white elm IgE antibody assay (units/volume)Ordered By: Justino Mast on 09-12-2022 White Elm IgE Qn (S) 0.21 kU/L Class 0/I [facility] Serum white oak IgE antibody assay (units/volume)Ordered By: Justino Mast on 09-12-2022 Hardin IgE Qn (S) 0.15 kU/L Class 0/I [facility] Serum whole egg IgE antibody assay (units/volume)Ordered By: Justino Pro on 09-12-2022 Whole Egg IgE Qn (S) 1.73 kU/L Class III [facility] Basophil percentageOrdered B y: Dr. Pillai on 09-05-2022 WBC (Bld) [#/Vol] 10.3 10*3/uL 4.4-11.0 [facility] Blood erythrocytes count (nu mber/volume)Ordered By: Dr. Pillai on 09-05-2022 RBC (Bld) [#/Vol] 3.16 10*6/uL 4.2-5.4 [facility] Blood hemoglobin measurement (mass/volume)Ordered By: Dr. Pillai on 09-05-2022 Hemoglobin (Bld) [Mass/Vol] 8.6 g/dL 12.0-15.0 [facility] Blood platelet mean volumeOr dered By: Dr. Pillai on 09-05-2022 Platelet mean volume (Bld) [Entitic vol] 11.2 fL 6.2-12.0 [facility] Determination of erythrocyte mean corpuscular volume (MCV)Ordered By: Dr. Pillai on 09-05-2022 MCV (RBC) [Entitic vol] 85.1 fL 81-99 [facility] Hematocrit Auto (Bld) [Volum e fraction]Ordered By: Dr. Pillai on 09-05-2022 Hematocrit (Bld) [Volume fraction] 26.9 % 37-47 [facility] Laboratory - Hematology and Cell countsOrdered By: Dr. Pillai on 09-05-2022 Erythrocyte distribution width (RBC) [Entitic vol] 43.3 fL 35.1-43.9 [facility] Erythrocyte distribution width (RBC) [Ratio] 13.9 % 11.6-14.6 [facility] MCH (RBC) [Entitic mass] 27.2 pg 27.0-32.0 [facility] MCHC Auto (RBC) [Mass/Vol]Or dered By: Dr. Pillai on 09-05-2022 MCHC (RBC) [Mass/Vol] 32.0 g/dL 32-36 [facility] Platelets bldOrdered By: Dr. Pillai on 09-05-2022 Platelets (Bld) [#/Vol] 186 10*3/uL 150-450 [facility] Absolute lymphocyte countOrd ered By: Dr. Pillai on 09-04-2022 Lymphocytes Auto (Unsp spec) [#/Vol] 2.55 10*3/uL 0.83-4.51 [facility] Basophil percentageOrdered B y: Dr. Pillai on 09-04-2022 Basophils/100 WBC (Bld) 0.2 % 0-1 [facility] Eosinophils/100 WBC (Bld) 4.9 % 0-5 [facility] Neutrophils (Bld) [#/Vol] 7.7 10*3/uL 2.0-7.7 [facility] Neutrophils/100 WBC (Bld) 66.3 % 47-70 [facility] Blood lymphocytes/100 leukoc ytesOrdered By: Dr. Pillai on 09-04-2022 Lymphocytes/100 WBC (Bld) 21.9 % 19-41 [facility] Blood monocytes/100 leukocyt esOrdered By: Dr. Pillai on 09-04-2022 Monocytes/100 WBC (Bld) 6.2 % 0-10 [facility] Laboratory - Chemistry and C hemistry - challengeOrdered By: Dr. Pillai on 09-04-2022 ALT [Catalytic activity/Vol] 13 U/L 13-56 [facility] Laboratory - Hematology and Cell countsOrdered By: Dr. Pillai on 09-04-2022 Immature granulocytes/100 WBC (Bld) 0.500 % 0.0-0.9 [facility] Comment on above: IG% - Immature Granu locytes (promyelocytes, myelocytes and metamyelocytes) > 1% indicates that a LEFT SHIFT is Present. Nucleated RBC/100 WBC (Bld) [Ratio] 0 % 0-5 [facility] No Panel InformationOrdered By: Dr. Pillai on 09-04-2022 Estimated Creatinine Clearance Calc 111.27 ml/min [facility] Estimated GFR (MDRD) Amer 140 mL/min >60 [facility] Comment on above: GFR Calc Estimated GFR (MDRD) Non-Af Amer 116 mL/min >60 [facility] Comment on above: Non- GFR Calc Serum Treponema species anti body detectionOrdered By: Dr. Pillai on 09-04-2022 Treponema sp Ab Ql (S) Non-Reactive [facility] Serum or plasma creatinine m easurement (mass/volume)Ordered By: Dr. Pillai on 09-04-2022 Creatinine [Mass/Vol] 0.65 mg/dL 0.55-1.02 [facility] Comment on above: The validity of the calculated GFR & GFRAA in patients over 70 years has not been determined. Clinical correlation is essential. Serum or plasma uric acid me asurement (mass/volume)Ordered By: Dr. Pillai on 09-04-2022 Urate [Mass/Vol] 4.2 mg/dL 2.6-6.0 [facility] Comment on above: The drugs N-Acetylcy steine and Metamizole may falsely depress this assay. Thin prep Papanicolaou smear with manual screeningOrdered By: Dr. Pillai on 09-04-2022 Thin prep Papanicolaou smear with manual screening 13 U/L 15-37 [facility] Urine creatinine measurement (mass/volume)Ordered By: Dr. Pillai on 09-04-2022 Creatinine (U) [Mass/Vol] 178.00 mg/dL NO RANGE EST. [facility] Urine protein measurement (m ass/volume)Ordered By: Dr. Pillai on 09-04-2022 Protein (U) [Mass/Vol] 52.7 mg/dL 0.0-11.8 [facility] Urine protein/creatinine mas s ratioOrdered By: Dr. Pillai on 09-04-2022 Protein/Creatinine (U) [Mass ratio] 296 mg/g CRE 0-200 [facility] Laboratory - Chemistry and C hemistry - challengeon 09-02-2022 Glucose Ql (U) Negative [facility] Laboratory - Urinalysison Protein Ql (U) Negative [facility] No Panel InformationOrdered By: Marcela Espana on 09-02-2022 Group B Streptococcus Culture Group B Beta Streptococcus is not isolated. [facility] Laboratory - Chemistry and C hemistry - challengeon 08-30-2022 Glucose Ql (U) Negative [facility] Laboratory - Urinalysison Protein Ql (U) Negative [facility] No Panel InformationOrdered By: Marcela Espana on 08-30-2022 Group B Streptococcus Culture Group B Beta Streptococcus is not isolated. [facility] Laboratory - Chemistry and C hemistry - challengeon 08-27-2022 Glucose Ql (U) Negative [facility] Laboratory - Urinalysison Protein Ql (U) Negative [facility] Absolute lymphocyte countOrd ered By: Dr. Frankel on 08-22-2022 Lymphocytes Auto (Unsp spec) [#/Vol] 2.34 10*3/uL 0.83-4.51 [facility] Basophil percentageOrdered B y: Dr. Frankel on 08-22-2022 Basophils/100 WBC (Bld) 0.3 % 0-1 [facility] Bilirubin [Mass/Vol] 0.20 mg/dL 0.20-1.00 [facility] Comment on above: For patients on eltr ombopag therapy, use of Dimension [place] TBIL is not recommended. Chloride [Moles/Vol] 107 mmol/L 98-107 [facility] Eosinophils/100 WBC (Bld) 3.8 % 0-5 [facility] Glucose [Mass/Vol] 73 mg/dL 74-106 [facility] Neutrophils (Bld) [#/Vol] 7.4 10*3/uL 2.0-7.7 [facility] Neutrophils/100 WBC (Bld) 67.9 % 47-70 [facility] Potassium [Moles/Vol] 3.4 mmol/L 3.5-5.1 [facility] Protein [Mass/Vol] 6.4 g/dL 6.4-8.2 [facility] Sodium [Moles/Vol] 138 mmol/L 136-145 [facility] WBC (Bld) [#/Vol] 11.0 10*3/uL 4.4-11.0 [facility] Blood erythrocytes count (nu mber/volume)Ordered By: Dr. Frankel on 08-22-2022 RBC (Bld) [#/Vol] 3.93 10*6/uL 4.2-5.4 [facility] [facility] [place] Blood hemoglobin measurement (mass/volume)Ordered By: Dr. Frankel on 08-22-2022 Hemoglobin (Bld) [Mass/Vol] 10.7 g/dL 12.0-15.0 [facility] Blood lymphocytes/100 leukoc ytesOrdered By: Dr. Frankel on 08-22-2022 Lymphocytes/100 WBC (Bld) 21.3 % 19-41 [facility] Blood monocytes/100 leukocyt esOrdered By: Dr. Frankel on 08-22-2022 Monocytes/100 WBC (Bld) 6.2 % 0-10 [facility] Blood platelet mean volumeOr dered By: Dr. Frankel on 08-22-2022 Platelet mean volume (Bld) [Entitic vol] 11.1 fL 6.2-12.0 [facility] Determination of erythrocyte mean corpuscular volume (MCV)Ordered By: Dr. Frankel on 08-22-2022 MCV (RBC) [Entitic vol] 83.0 fL 81-99 [facility] Hematocrit Auto (Bld) [Volum e fraction]Ordered By: Dr. Frankel on 08-22-2022 Hematocrit (Bld) [Volume fraction] 32.6 % 37-47 [facility] Laboratory - Chemistry and C hemistry - challengeOrdered By: Dr. Frankel on 08-22-2022 ALP [Catalytic activity/Vol] 121 U/L 45-117 [facility] ALT [Catalytic activity/Vol] 12 U/L 13-56 [facility] CO2 [Moles/Vol] 22.0 mmol/L 21.0-32.0 [facility] Globulin (S) [Mass/Vol] 3.9 g/dL 2.2-4.2 [facility] Urea nitrogen/Creatinine [Mass ratio] 5.7 mg/mg 10-20 [facility] Laboratory - Chemistry and C hemistry - challengeon 08-22-2022 Glucose Ql (U) Negative [facility] Laboratory - Hematology and Cell countsOrdered By: Dr. Frankel on 08-22-2022 Erythrocyte distribution width (RBC) [Entitic vol] 41.6 fL 35.1-43.9 [facility] Erythrocyte distribution width (RBC) [Ratio] 14.0 % 11.6-14.6 [facility] Immature granulocytes/100 WBC (Bld) 0.500 % 0.0-0.9 [facility] Comment on above: IG% - Immature Granu locytes (promyelocytes, myelocytes and metamyelocytes) > 1% indicates that a LEFT SHIFT is Present. MCH (RBC) [Entitic mass] 27.2 pg 27.0-32.0 [facility] Nucleated RBC/100 WBC (Bld) [Ratio] 0 % 0-5 [facility] Laboratory - Urinalysison Protein Ql (U) Negative [facility] MCHC Auto (RBC) [Mass/Vol]Or dered By: Dr. Frankel on 08-22-2022 MCHC (RBC) [Mass/Vol] 32.8 g/dL 32-36 [facility] No Panel InformationOrdered By: Dr. Frankel on 08-22-2022 Estimated GFR (MDRD) Amer 178 mL/min >60 [facility] Comment on above: GFR Calc Estimated GFR (MDRD) Non-Af Amer 147 mL/min >60 [facility] Comment on above: Non- GFR Calc Platelets bldOrdered By: Dr. Frankel on 08-22-2022 Platelets (Bld) [#/Vol] 234 10*3/uL 150-450 [facility] Serum or plasma albumin belinda urement (mass/volume)Ordered By: Dr. Frankel on 08-22-2022 Albumin [Mass/Vol] 2.5 g/dL 3.2-5.0 [facility] Serum or plasma albumin/glob ulin mass ratioOrdered By: Dr. Frankel on 08-22-2022 Albumin/Globulin [Mass ratio] 0.6 {ratio} 0.9-2.4 [facility] Serum or plasma calcium belinda urement (mass/volume)Ordered By: Dr. Frankel on 08-22-2022 Calcium [Mass/Vol] 8.8 mg/dL 8.5-10.1 [facility] Serum or plasma creatinine m easurement (mass/volume)Ordered By: Dr. Frankel on 08-22-2022 Creatinine [Mass/Vol] 0.52 mg/dL 0.55-1.02 [facility] Comment on above: The validity of the calculated GFR & GFRAA in patients over 70 years has not been determined. Clinical correlation is essential. Serum or plasma urea nitroge n measurement (mass/volume)Ordered By: Dr. Frankel on 08-22-2022 Urea nitrogen [Mass/Vol] 3 mg/dL 7-18 [facility] Thin prep Papanicolaou smear with manual screeningOrdered By: Dr. Frankel on 08-22-2022 Thin prep Papanicolaou smear with manual screening 7 U/L 15-37 [facility] Thin prep Papanicolaou smear with manual screening 9 5-15 [facility] Urine creatinine measurement (mass/volume)Ordered By: Dr. Frankel on 08-22-2022 Creatinine (U) [Mass/Vol] 19.50 mg/dL NO RANGE EST. [facility] Urine protein measurement (m ass/volume)Ordered By: Dr. Frankel on 08-22-2022 Protein (U) [Mass/Vol] mg/dL 0.0-11.8 [facility] Urine protein/creatinine mas s ratioOrdered By: Dr. Frankel on 08-22-2022 Protein/Creatinine (U) [Mass ratio] TNP [facility] Comment on above: Test not performed Laboratory - Chemistry and C hemistry - challengeon 08-20-2022 Glucose Ql (U) Negative [facility] Laboratory - Urinalysison Protein Ql (U) Negative [facility] Laboratory - Chemistry and C hemistry - challengeon 08-16-2022 Glucose Ql (U) Negative [facility] Laboratory - Urinalysison Protein Ql (U) Negative [facility] Absolute lymphocyte countOrd ered By: Dr. Frankel on 08-13-2022 Lymphocytes Auto (Unsp spec) [#/Vol] 2.17 10*3/uL 0.83-4.51 [facility] Basophil percentageOrdered B y: Dr. Frankel on 08-13-2022 Basophils/100 WBC (Bld) 0.2 % 0-1 [facility] Bilirubin [Mass/Vol] 0.10 mg/dL 0.20-1.00 [facility] Comment on above: For patients on eltr ombopag therapy, use of Dimension [place] TBIL is not recommended. Chloride [Moles/Vol] 107 mmol/L 98-107 [facility] Eosinophils/100 WBC (Bld) 4.0 % 0-5 [facility] Glucose [Mass/Vol] 99 mg/dL 74-106 [facility] Neutrophils (Bld) [#/Vol] 8.0 10*3/uL 2.0-7.7 [facility] Neutrophils/100 WBC (Bld) 70.7 % 47-70 [facility] Potassium [Moles/Vol] 3.2 mmol/L 3.5-5.1 [facility] Protein [Mass/Vol] 6.5 g/dL 6.4-8.2 [facility] Sodium [Moles/Vol] 137 mmol/L 136-145 [facility] WBC (Bld) [#/Vol] 11.3 10*3/uL 4.4-11.0 [facility] Blood erythrocytes count (nu mber/volume)Ordered By: Dr. Frankel on 08-13-2022 RBC (Bld) [#/Vol] 3.94 10*6/uL 4.2-5.4 [facility] Blood hemoglobin measurement (mass/volume)Ordered By: Dr. Frankel on 08-13-2022 Hemoglobin (Bld) [Mass/Vol] 10.8 g/dL 12.0-15.0 [facility] Blood lymphocytes/100 leukoc ytesOrdered By: Dr. Frankel on 08-13-2022 Lymphocytes/100 WBC (Bld) 19.2 % 19-41 [facility] Blood monocytes/100 leukocyt esOrdered By: Dr. Frankel on 08-13-2022 Monocytes/100 WBC (Bld) 5.4 % 0-10 [facility] Blood platelet mean volumeOr dered By: Dr. Frankel on 08-13-2022 Platelet mean volume (Bld) [Entitic vol] 11.6 fL 6.2-12.0 [facility] Determination of erythrocyte mean corpuscular volume (MCV)Ordered By: Dr. Frankel on 08-13-2022 MCV (RBC) [Entitic vol] 85.8 fL 81-99 [facility] Hematocrit Auto (Bld) [Volum e fraction]Ordered By: Dr. Frankel on 08-13-2022 Hematocrit (Bld) [Volume fraction] 33.8 % 37-47 [facility] Laboratory - Chemistry and C hemistry - challengeOrdered By: Dr. Frankel on 08-13-2022 ALP [Catalytic activity/Vol] 126 U/L 45-117 [facility] ALT [Catalytic activity/Vol] 11 U/L 13-56 [facility] CO2 [Moles/Vol] 24.0 mmol/L 21.0-32.0 [facility] Globulin (S) [Mass/Vol] 4.1 g/dL 2.2-4.2 [facility] Urea nitrogen/Creatinine [Mass ratio] 5.8 mg/mg 10-20 [facility] Laboratory - Chemistry and C hemistry - challengeon 08-13-2022 Glucose Ql (U) Negative [facility] Laboratory - Hematology and Cell countsOrdered By: Dr. Frankel on 08-13-2022 Erythrocyte distribution width (RBC) [Entitic vol] 43.1 fL 35.1-43.9 [facility] Erythrocyte distribution width (RBC) [Ratio] 13.9 % 11.6-14.6 [facility] Immature granulocytes/100 WBC (Bld) 0.500 % 0.0-0.9 [facility] Comment on above: IG% - Immature Granu locytes (promyelocytes, myelocytes and metamyelocytes) > 1% indicates that a LEFT SHIFT is Present. MCH (RBC) [Entitic mass] 27.4 pg 27.0-32.0 [facility] Nucleated RBC/100 WBC (Bld) [Ratio] 0 % 0-5 [facility] Laboratory - Urinalysison Protein Ql (U) Negative [facility] MCHC Auto (RBC) [Mass/Vol]Or dered By: Dr. Frankel on 08-13-2022 MCHC (RBC) [Mass/Vol] 32.0 g/dL 32-36 [facility] No Panel InformationOrdered By: Dr. Frankel on 08-13-2022 Estimated GFR (MDRD) Amer 130 mL/min >60 [facility] Comment on above: GFR Calc Estimated GFR (MDRD) Non-Af Amer 108 mL/min >60 [facility] Comment on above: Non- GFR Calc Platelets bldOrdered By: Dr. Frankel on 08-13-2022 Platelets (Bld) [#/Vol] 218 10*3/uL 150-450 [facility] Serum or plasma albumin belinda urement (mass/volume)Ordered By: Dr. Frankel on 08-13-2022 Albumin [Mass/Vol] 2.4 g/dL 3.2-5.0 [facility] Serum or plasma albumin/glob ulin mass ratioOrdered By: Dr. Frankel on 08-13-2022 Albumin/Globulin [Mass ratio] 0.6 {ratio} 0.9-2.4 [facility] Serum or plasma calcium belinda urement (mass/volume)Ordered By: Dr. Frankel on 08-13-2022 Calcium [Mass/Vol] 8.8 mg/dL 8.5-10.1 [facility] Serum or plasma creatinine m easurement (mass/volume)Ordered By: Dr. Frankel on 08-13-2022 Creatinine [Mass/Vol] 0.69 mg/dL 0.55-1.02 [facility] Comment on above: The validity of the calculated GFR & GFRAA in patients over 70 years has not been determined. Clinical correlation is essential. Serum or plasma urea nitroge n measurement (mass/volume)Ordered By: Dr. Frankel on 08-13-2022 Urea nitrogen [Mass/Vol] 4 mg/dL 7-18 [facility] Thin prep Papanicolaou smear with manual screeningOrdered By: Dr. Frankel on 08-13-2022 Thin prep Papanicolaou smear with manual screening 7 U/L 15-37 [facility] Thin prep Papanicolaou smear with manual screening 6 5-15 [facility] Laboratory - Chemistry and C hemistry - challengeon 08-08-2022 Glucose Ql (U) Negative [facility] Laboratory - Urinalysison Protein Ql (U) Negative [facility] Absolute lymphocyte countOrd ered By: Dr. Frankel on 08-05-2022 Lymphocytes Auto (Unsp spec) [#/Vol] 2.33 10*3/uL 0.83-4.51 [facility] Basophil percentageOrdered B y: Dr. Frankel on 08-05-2022 Basophils/100 WBC (Bld) 0.2 % 0-1 [facility] Bilirubin [Mass/Vol] 0.20 mg/dL 0.20-1.00 [facility] Comment on above: For patients on eltr ombopag therapy, use of Dim[place] TBIL is not recommended. Chloride [Moles/Vol] 106 mmol/L 98-107 [facility] Eosinophils/100 WBC (Bld) 2.2 % 0-5 [facility] Glucose [Mass/Vol] 88 mg/dL 74-106 [facility] Neutrophils (Bld) [#/Vol] 7.6 10*3/uL 2.0-7.7 [facility] Neutrophils/100 WBC (Bld) 69.2 % 47-70 [facility] Potassium [Moles/Vol] 3.6 mmol/L 3.5-5.1 [facility] Protein [Mass/Vol] 6.6 g/dL 6.4-8.2 [facility] Sodium [Moles/Vol] 136 mmol/L 136-145 [facility] WBC (Bld) [#/Vol] 10.9 10*3/uL 4.4-11.0 [facility] Blood erythrocytes count (nu mber/volume)Ordered By: Dr. Frankel on 08-05-2022 RBC (Bld) [#/Vol] 3.88 10*6/uL 4.2-5.4 [facility] Blood hemoglobin measurement (mass/volume)Ordered By: Dr. Frankel on 08-05-2022 Hemoglobin (Bld) [Mass/Vol] 10.6 g/dL 12.0-15.0 [facility] Blood lymphocytes/100 leukoc ytesOrdered By: Dr. Frankel on 08-05-2022 Lymphocytes/100 WBC (Bld) 21.4 % 19-41 [facility] Blood monocytes/100 leukocyt esOrdered By: Dr. Frankel on 08-05-2022 Monocytes/100 WBC (Bld) 6.5 % 0-10 [facility] Blood platelet mean volumeOr dered By: Dr. Frankel on 08-05-2022 Platelet mean volume (Bld) [Entitic vol] 11.1 fL 6.2-12.0 [facility] Determination of erythrocyte mean corpuscular volume (MCV)Ordered By: Dr. Frankel on 08-05-2022 MCV (RBC) [Entitic vol] 85.3 fL 81-99 [facility] Hematocrit Auto (Bld) [Volum e fraction]Ordered By: Dr. Frankel on 08-05-2022 Hematocrit (Bld) [Volume fraction] 33.1 % 37-47 [facility] Laboratory - Chemistry and C hemistry - challengeOrdered By: Dr. Frankel on 08-05-2022 ALP [Catalytic activity/Vol] 114 U/L 45-117 [facility] ALT [Catalytic activity/Vol] 14 U/L 13-56 [facility] CO2 [Moles/Vol] 25.0 mmol/L 21.0-32.0 [facility] Globulin (S) [Mass/Vol] 4.1 g/dL 2.2-4.2 [facility] Urea nitrogen/Creatinine [Mass ratio] 9.0 mg/mg 10-20 [facility] Laboratory - Hematology and Cell countsOrdered By: Dr. Farnkel on 08-05-2022 Erythrocyte distribution width (RBC) [Entitic vol] 42.0 fL 35.1-43.9 [facility] Erythrocyte distribution width (RBC) [Ratio] 13.6 % 11.6-14.6 [facility] Immature granulocytes/100 WBC (Bld) 0.500 % 0.0-0.9 [facility] Comment on above: IG% - Immature Granu locytes (promyelocytes, myelocytes and metamyelocytes) > 1% indicates that a LEFT SHIFT is Present. MCH (RBC) [Entitic mass] 27.3 pg 27.0-32.0 [facility] Nucleated RBC/100 WBC (Bld) [Ratio] 0 % 0-5 [facility] MCHC Auto (RBC) [Mass/Vol]Or dered By: Dr. Frankel on 08-05-2022 MCHC (RBC) [Mass/Vol] 32.0 g/dL 32-36 [facility] No Panel InformationOrdered By: Dr. Frankel on 08-05-2022 Estimated GFR (MDRD) Amer 166 mL/min >60 [facility] Comment on above: GFR Calc Estimated GFR (MDRD) Non-Af Amer 138 mL/min >60 [facility] Comment on above: Non- GFR Calc Platelets bldOrdered By: Dr. Frankel on 08-05-2022 Platelets (Bld) [#/Vol] 208 10*3/uL 150-450 [facility] Serum or plasma albumin belinda urement (mass/volume)Ordered By: Dr. Frankel on 08-05-2022 Albumin [Mass/Vol] 2.5 g/dL 3.2-5.0 [facility] Serum or plasma albumin/glob ulin mass ratioOrdered By: Dr. Frankel on 08-05-2022 Albumin/Globulin [Mass ratio] 0.6 {ratio} 0.9-2.4 [facility] Serum or plasma calcium belinda urement (mass/volume)Ordered By: Dr. Frankel on 08-05-2022 Calcium [Mass/Vol] 8.9 mg/dL 8.5-10.1 [facility] Serum or plasma creatinine m easurement (mass/volume)Ordered By: Dr. Frankel on 08-05-2022 Creatinine [Mass/Vol] 0.56 mg/dL 0.55-1.02 [facility] Comment on above: The validity of the calculated GFR & GFRAA in patients over 70 years has not been determined. Clinical correlation is essential. Serum or plasma urea nitroge n measurement (mass/volume)Ordered By: Dr. Frankel on 08-05-2022 Urea nitrogen [Mass/Vol] 5 mg/dL 7-18 [facility] Thin prep Papanicolaou smear with manual screeningOrdered By: Dr. Frankel on 08-05-2022 Thin prep Papanicolaou smear with manual screening 11 U/L 15-37 [facility] Thin prep Papanicolaou smear with manual screening 5 5-15 [facility] Laboratory - Chemistry and C hemistry - challengeon 08-02-2022 Glucose Ql (U) Negative [facility] Laboratory - Urinalysison 04 -14-2023 Protein Ql (U) Negative [facility] Laboratory - Chemistry and C hemistry - challengeon 07-30-2022 Glucose Ql (U) Negative [facility] Laboratory - Urinalysison Protein Ql (U) Negative [facility] Laboratory - Chemistry and C hemistry - challengeon 07-26-2022 Glucose Ql (U) Negative [facility] Laboratory - Urinalysison Protein Ql (U) Negative [facility] Basophil percentageOrdered B y: Dr. Frankel on 07-23-2022 WBC (Bld) [#/Vol] 10.2 10*3/uL 4.4-11.0 [facility] Blood erythrocytes count (nu mber/volume)Ordered By: Dr. Frankel on 07-23-2022 RBC (Bld) [#/Vol] 3.82 10*6/uL 4.2-5.4 [facility] Blood hemoglobin measurement (mass/volume)Ordered By: Dr. Frankel on 07-23-2022 Hemoglobin (Bld) [Mass/Vol] 10.4 g/dL 12.0-15.0 [facility] Blood platelet mean volumeOr dered By: Dr. Frankel on 07-23-2022 Platelet mean volume (Bld) [Entitic vol] 11.7 fL 6.2-12.0 [facility] Determination of erythrocyte mean corpuscular volume (MCV)Ordered By: Dr. Frankel on 07-23-2022 MCV (RBC) [Entitic vol] 83.5 fL 81-99 [facility] Hematocrit Auto (Bld) [Volum e fraction]Ordered By: Dr. Frankel on 07-23-2022 Hematocrit (Bld) [Volume fraction] 31.9 % 37-47 [facility] Laboratory - Chemistry and C hemistry - challengeOrdered By: Dr. Frankel on 07-23-2022 ALT [Catalytic activity/Vol] 12 U/L 13-56 [facility] Laboratory - Chemistry and C hemistry - challengeon 07-23-2022 Glucose Ql (U) Negative [facility] Laboratory - Hematology and Cell countsOrdered By: Dr. Frankel on 07-23-2022 Erythrocyte distribution width (RBC) [Entitic vol] 41.8 fL 35.1-43.9 [facility] Erythrocyte distribution width (RBC) [Ratio] 14.1 % 11.6-14.6 [facility] MCH (RBC) [Entitic mass] 27.2 pg 27.0-32.0 [facility] Laboratory - Urinalysison [facility] [Mass/Vol]Or dered By: Dr. Frankel on 07-23-2022 MCHC (RBC) [Mass/Vol] 32.6 g/dL 32-36 [facility] No Panel InformationOrdered By: Dr. Frankel on 07-23-2022 Estimated Creatinine Clearance Calc 139.09 ml/min [facility] Estimated GFR (MDRD) Amer 178 mL/min >60 [facility] Comment on above: GFR Calc Estimated GFR (MDRD) Non-Af Amer 147 mL/min >60 [facility] Comment on above: Non- GFR Calc Platelets bldOrdered By: Dr. Frankel on 07-23-2022 Platelets (Bld) [#/Vol] 220 10*3/uL 150-450 [facility] Serum or plasma creatinine m easurement (mass/volume)Ordered By: Dr. Frankel on 07-23-2022 Creatinine [Mass/Vol] 0.52 mg/dL 0.55-1.02 [facility] Comment on above: The validity of the calculated GFR & GFRAA in patients over 70 years has not been determined. Clinical correlation is essential. Serum or plasma uric acid me asurement (mass/volume)Ordered By: Dr. Frankel on 07-23-2022 Urate [Mass/Vol] 3.3 mg/dL 2.6-6.0 [facility] Comment on above: The drugs N-Acetylcy steine and Metamizole may falsely depress this assay. Thin prep Papanicolaou smear with manual screeningOrdered By: Dr. Frankel on 07-23-2022 Thin prep Papanicolaou smear with manual screening 12 U/L 15- [facility] Urine creatinine measurement (mass/volume)Ordered By: Dr. Frankel on 07-23-2022 Creatinine (U) [Mass/Vol] 48.70 mg/dL NO RANGE EST. [facility] Urine protein measurement (m ass/volume)Ordered By: Dr. Frankel on 07-23-2022 Protein (U) [Mass/Vol] 9.4 mg/dL 0.0-11.8 [facility] Urine protein/creatinine mas s ratioOrdered By: Dr. Frankel on 07-23-2022 Protein/Creatinine (U) [Mass ratio] 193 mg/g CRE 0-200 [facility] Laboratory - Chemistry and C hemistry - challengeon 07-10-2022 Glucose Ql (U) Negative [facility] Laboratory - Urinalysison Protein Ql (U) Negative [facility] Absolute lymphocyte countOrd ered By: Dr. Frankel on 07-05-2022 Lymphocytes Auto (Unsp spec) [#/Vol] 1.83 10*3/uL 0.83-4.51 [facility] Basophil percentageOrdered B y: Dr. Frankel on 07-05-2022 Basophils/100 WBC (Bld) 0.3 % 0-1 [facility] Eosinophils/100 WBC (Bld) 4.4 % 0-5 [facility] Neutrophils (Bld) [#/Vol] 7.1 10*3/uL 2.0-7.7 [facility] Neutrophils/100 WBC (Bld) 71.9 % 47-70 [facility] WBC (Bld) [#/Vol] 9.8 10*3/uL 4.4-11.0 [facility] Blood erythrocytes count (nu mber/volume)Ordered By: Dr. Frankel on 07-05-2022 RBC (Bld) [#/Vol] 3.85 10*6/uL 4.2-5.4 [facility] Blood hemoglobin measurement (mass/volume)Ordered By: Dr. Frankel on 07-05-2022 Hemoglobin (Bld) [Mass/Vol] 10.5 g/dL 12.0-15.0 [facility] Blood lymphocytes/100 leukoc ytesOrdered By: Dr. Frankel on 07-05-2022 Lymphocytes/100 WBC (Bld) 18.6 % 19-41 [facility] Blood monocytes/100 leukocyt esOrdered By: Dr. Frankel on 07-05-2022 Monocytes/100 WBC (Bld) 4.3 % 0-10 [facility] Blood platelet mean volumeOr dered By: Dr. Frankel on 07-05-2022 Platelet mean volume (Bld) [Entitic vol] 11.2 fL 6.2-12.0 [facility] Determination of erythrocyte mean corpuscular volume (MCV)Ordered By: Dr. Frankel on 07-05-2022 MCV (RBC) [Entitic vol] 84.7 fL 81-99 [facility] Gestational diabetes screen 1-hour screen with 50g oral glucose loadOrdered By: Dr. Frankel on 07-05-2022 Glucose 1 Hr post 50 g glucose PO [Mass/Vol] 176 mg/dL 70-140 [facility] HIV 1 and HIV-2 antibody ass ay with HIV-1 p24 antigen detectionOrdered By: Dr. Frankel on 07-05-2022 HIV 1+2 Ab+HIV1 p24 Ag IA Ql Non-Reactive Nonreactive [facility] Hematocrit Auto (Bld) [Volum e fraction]Ordered By: Dr. Frankel on 07-05-2022 Hematocrit (Bld) [Volume fraction] 32.6 % 37-47 [facility] Laboratory - Hematology and Cell countsOrdered By: Dr. Frankel on 07-05-2022 Erythrocyte distribution width (RBC) [Entitic vol] 41.4 fL 35.1-43.9 [facility] Erythrocyte distribution width (RBC) [Ratio] 13.4 % 11.6-14.6 [facility] Immature granulocytes/100 WBC (Bld) 0.500 % 0.0-0.9 [facility] Comment on above: IG% - Immature Granu locytes (promyelocytes, myelocytes and metamyelocytes) > 1% indicates that a LEFT SHIFT is Present. MCH (RBC) [Entitic mass] 27.3 pg 27.0-32.0 [facility] Nucleated RBC/100 WBC (Bld) [Ratio] 0 % 0-5 [facility] MCHC Auto (RBC) [Mass/Vol]Or dered By: Dr. Frankel on 07-05-2022 MCHC (RBC) [Mass/Vol] 32.2 g/dL 32-36 [facility] Platelets bldOrdered By: Dr. Frankel on 07-05-2022 Platelets (Bld) [#/Vol] 224 10*3/uL 150-450 [facility] Serum Treponema species anti body detectionOrdered By: Dr. Frankel on 07-05-2022 Treponema sp Ab Ql (S) Non-Reactive [facility] Laboratory - Chemistry and C hemistry - challengeon 06-26-2022 Glucose Ql (U) Negative [facility] Laboratory - Urinalysison Protein Ql (U) Negative [facility] Laboratory - Chemistry and C hemistry - challengeon 05-27-2022 Glucose Ql (U) Negative [facility] Laboratory - Urinalysison Protein Ql (U) Negative [facility] Laboratory - Chemistry and C hemistry - challengeon 04-29-2022 Glucose Ql (U) Negative [facility] Laboratory - Urinalysison Protein Ql (U) Negative [facility] Quantitative serum or plasma 3 hour gestational glucose tolerance panelOrdered By: Dr. Frankel on 04-08-2022 Glucose tolerance 3 hours gestational panel See comment [facility] Comment on above: FASTING 91 Col: 03/21 01/10 0655GLUCOSE TOLERANCE TEST FOR Reference Interval GESTATIONAL DIABETES Fasting <105 mg/dL 1 hour <190 mg/dl 2 hour <165 mg/dl 3 hour <145 mg/dl 1 HR GLU 143 Col: 04/08/22 0756 2 HR GLU 130 Col: 04/08/22 0856 3 HR GLU 104 Col: 04/08/22 0956 Absolute lymphocyte countOrd ered By: Dr. Frankel on 04-04-2022 Lymphocytes Auto (Unsp spec) [#/Vol] 1.79 10*3/uL 0.83-4.51 [facility] Basophil percentageOrdered B y: Dr. Frankel on 04-04-2022 Basophils/100 WBC (Bld) 0.2 % 0-1 [facility] Eosinophils/100 WBC (Bld) 3.9 % 0-5 [facility] Neutrophils (Bld) [#/Vol] 6.2 10*3/uL 2.0-7.7 [facility] Neutrophils/100 WBC (Bld) 70.7 % 47-70 [facility] WBC (Bld) [#/Vol] 8.8 10*3/uL 4.4-11.0 [facility] Blood erythrocytes count (nu mber/volume)Ordered By: Dr. Frankel on 04-04-2022 RBC (Bld) [#/Vol] 4.28 10*6/uL 4.2-5.4 [facility] Blood hemoglobin measurement (mass/volume)Ordered By: Dr. Frankel on 04-04-2022 Hemoglobin (Bld) [Mass/Vol] 11.3 g/dL 12.0-15.0 [facility] Blood lymphocytes/100 leukoc ytesOrdered By: Dr. Frankel on 04-04-2022 Lymphocytes/100 WBC (Bld) 20.4 % 19-41 [facility] Blood monocytes/100 leukocyt esOrdered By: Dr. Frankel on 04-04-2022 Monocytes/100 WBC (Bld) 4.6 % 0-10 [facility] Blood platelet mean volumeOr dered By: Dr. Frankel on 04-04-2022 Platelet mean volume (Bld) [Entitic vol] 10.3 fL 6.2-12.0 [facility] Determination of erythrocyte mean corpuscular volume (MCV)Ordered By: Dr. Frankel on 04-04-2022 MCV (RBC) [Entitic vol] 82.5 fL 81-99 [facility] Gestational diabetes screen 1-hour screen with 50g oral glucose loadOrdered By: Dr. Frankel on 04-04-2022 Glucose 1 Hr post 50 g glucose PO [Mass/Vol] 164 mg/dL 70-140 [facility] HIV 1 and HIV-2 antibody ass ay with HIV-1 p24 antigen detectionOrdered By: Dr. Frankel on 04-04-2022 HIV 1+2 Ab+HIV1 p24 Ag IA Ql Non-Reactive Nonreactive [facility] Hematocrit Auto (Bld) [Volum e fraction]Ordered By: Dr. Frankel on 04-04-2022 Hematocrit (Bld) [Volume fraction] 35.3 % 37-47 [facility] Laboratory - Hematology and Cell countsOrdered By: Dr. Frankel on 04-04-2022 Erythrocyte distribution width (RBC) [Entitic vol] 40.9 fL 35.1-43.9 [facility] Erythrocyte distribution width (RBC) [Ratio] 13.8 % 11.6-14.6 [facility] Immature granulocytes/100 WBC (Bld) 0.200 % 0.0-0.9 [facility] Comment on above: IG% - Immature Granu locytes (promyelocytes, myelocytes and metamyelocytes) > 1% indicates that a LEFT SHIFT is Present. MCH (RBC) [Entitic mass] 26.4 pg 27.0-32.0 [facility] Nucleated RBC/100 WBC (Bld) [Ratio] 0 % 0-5 [facility] MCHC Auto (RBC) [Mass/Vol]Or dered By: Dr. Frankel on 04-04-2022 MCHC (RBC) [Mass/Vol] 32.0 g/dL 32-36 [facility] No Panel InformationOrdered By: Dr. Frankel on 04-04-2022 Miscellaneous Test Comment MAILED SPECIMEN [facility] Hepatitis B Surface Antigen Non-Reactive Nonreactive [facility] Hepatitis C Antibody Non-Reactive Nonreactive [facility] Comment on above: Non Reactive: < 0.8 Equivocal: >/= 0.8 to < 1.0 Reactive: >/= 1.0The CDC recommends that a reactive/equivocal HCV antibody result be followed up by the HCV Nucleic Acid Amplificationtest (792036) Rubella IgG Antibody Reactive Nonreactive [facility] Comment on above: Antibody Results Int erpretation of Immune Status Non Reactive Presumed Non-Immune Equivocal Equivocal Reactive Presumed Immune Platelets bldOrdered By: Dr. Frankel on 04-04-2022 Platelets (Bld) [#/Vol] 218 10*3/uL 150-450 [facility] Serum Treponema species anti body detectionOrdered By: Dr. Frankel on 04-04-2022 Treponema sp Ab Ql (S) Non-Reactive [facility] Culture, urineOrdered By: Dr Jv Frankel on 03-06-2022 Bacteria identified Cx Nom (U) Positive [facility] Cervical or vagninal specime n microscopic examination by cytology stain (reported asOrdered By: Dr. Frankel on 03-04-2022 Cytology report Cyto stain Doc (Cvx/Vag) Comment . [facility] Comment on above: The Pap smear is a s creening test designed to aid in thedetection of premalignant and malignant conditions of theuterine cervix. It is not a diagnostic procedure andshould not be used as the sole means of detecting cervicalcancer. Both false-positive and false-negative reports dooccur. Chlamydia trachomatis rRNA d etection by probe and target amplification methodOrdered By: Dr. Frankel on 03-04-2022 C. trachomatis rRNA VIKTORIYA+probe Ql (Unsp spec) Negative Negative [facility] Laboratory - CytologyOrdered By: Dr. Frankel on 03-04-2022 [employer] Operator Cyto stain Nom (Cvx/Vag) [ID] Comment . [facility] Comment on above: Alin Quiros [employer] hnologist (ASCP) Laboratory - Drug toxicology Ordered By: Dr. Frankel on 03-04-2022 Amphetamines Ql (U) Negative <1000 ng/mL [facility] Benzodiazepines Ql (U) Negative < 200 ng/mL [facility] Cannabinoids Screen Ql (U) Negative < 50 ng/mL [facility] Cocaine Ql (U) Negative < 300 ng/mL [facility] Opiates Ql (U) Negative < 300 ng/mL [facility] Laboratory - Microbiology an d Antimicrobial susceptibilityOrdered By: Dr. Frankel on 03-04-2022 N. gonorrhoeae DNA VIKTORIYA+probe Ql (Unsp spec) Negative Negative [facility] Comment on above: Performed at: =[address] [id number] Director: Destinee Burgos MD, Phone: [phone] Laboratory - Miscellaneous t estsOrdered By: Dr. Frankel on 03-04-2022 Service comment (Unsp spec) [Interp] Comment . [facility] Comment on above: This liquid based Th inPrep(R) pap test was screened withthe use of an image guided system. Service comment (Unsp spec) [Interp] . . [facility] No Panel InformationOrdered By: Dr. Frankel on 03-04-2022 Human Papillomavirus Screen Comment . [facility] Comment on above: The HPV DNA reflex c elena were not met with this specimenresult therefore, no HPV testing was performed.Performed at: [address] [place] [id number] Director: Destinee Burgos MD, Phone: [phone] MDMA (Ecstasy) Screen Negative < 500 ng/mL [facility] Pathology report final diagnosis Narrative Comment . [facility] Comment on above: NEGATIVE FOR INTRAEP ITHELIAL LESION OR MALIGNANCY. Urine Barbiturates Screen Negative < 200 ng/mL [facility] Urine Drug Screen Comment [facility] Comment on above: CONFIRMATORY TESTING FOR ALL POSITIVE URINE DRUG SCREENRESULTS WILL ONLY BE SENT OUT UPON PHYSICIAN ORDER. VISTA Urine Drug Screen methods provide only preliminaryanalytical test results. A more specific alternate chemicalmethod must be used in order to obtain a confirmedanalytical result. Gas chromatography/mass spectrometery(GC/MS) is the preferred confirmatory method. Clinicalconsideration and professional judgement should be appliedto any drug of abuse test result, particularly whenpreliminary positive results are used. URINE TCA TESTING MUST BE ORDERED SEPARATELY. USE TESTMNEMONIC: [facility] Urine Methadone Screen Negative < 300 ng/mL [facility] Urine phencyclidine (PCP) de tectionOrdered By: Dr. Frankel on 03-04-2022 Phencyclidine Ql (U) Negative < 25 ng/mL [facility] Gel ABOon 02-13-2022 ABO/Rh Interp Positive Invalid Interpretation Code [facility] ([place]) Comment on above: Performed By: #### A TEJAL JORDAN #### [place] [address] [address] Gel ABSon 02-13-2022 Antibody Screen Gel Negative Normal [facility] ([place]) Comment on above: Performed By: #### A TEJAL JORDAN #### [place] [address] [place], [place] [address] HCGQon 02-13-2022 hCG, quantitative 77747.7 mIU/mL Normal [facility] ([place]) Comment on above: Result Comment: HCG Levels with Gestation age: 0.2- 1 week. . . . . . . . . . . . . . . 5 - 50 mIU/mL 1-2 weeks . . . . . . . . . . . . . . . 50 - 500 mIU/mL 2-3 weeks . . . . . . . . . . . . . . . 100 - 5,000 mIU/ml 3-4 weeks . . . . . . . . . . . . . . . 500 - 10,000 mIU/mL 4-5 weeks . . . . . . . . . . . . . . . 1,000 - 5,000 mIU/mL 5-6 weeks . . . . . . . . . . . . . . . 10,000 - 100,000 mIU/mL 6-8 weeks . . . . . . . . . . . . . . . 15,000 - 200,000 mIU/mL 2-3 months . . . . . . . . . . . . . . . 10,000 - 100,000 mIU/mL Performed By: #### H CGQ #### [place] [address] LABORATORYOrdered By: Courtney Torres on 02-13-2022 ABO/Rh Interp Positive Invalid Interpretation Code AO BB SS Antibody Screen Gel Negative ABSC (02/13/22 2:13 PM) Invalid [place]ation [place] [address].7 m[IU]/mL Invalid Interpretation Code AO ADM SS Serum or plasma choriogonado tropin detectionOrdered By: Leti Larry on 01-30-2022 HCG ( test) Ql 1968 mIU/mL <4 [facility] Comment on above: hCG levels with Gest ational AgeGestational Age hCG mIU/mL (IU/L)0.2 - 1 week 5 - 501-2 weeks 50 - 5002-3 weeks 100 - 07967-4 weeks 500 - 266550-2 weeks 1000 - 902509-0 weeks 99071 - 100,0006-8 weeks 11900 - 200,0002-3 months 33998 - 100,000 HCG Quantitative (31822)Orde red By: Casing Finisher And Stuffer on 01-29-2022 HCG.intact+Beta subunit Qn 1620 m[iU]/mL Normal [facility]; [facility] Work Phone: Comment on above: Female (Non- ) 0 - 5 (Postmenopausal) 0 - 8 . Female () Weeks of Gestation 3 6 - 71 4 10 - 750 5 406 - 3587 6 969 - 85737 7 3623 -348232 8 88994 -477429 9 98101 -932397 10 62955 -072199 12 90050 -932553 14 71120 - 76647 15 12600 - 15032 16 7932 - 79397 17 8079 - 74919 18 9538 - 93213Roche ECLIA methodology send copy to [facility] [facility]; PATIENT NOT FASTINGPERFORMED BY: [facility]6[address] [facility] [id number] Serum or plasma choriogonado tropin detectionOrdered By: Leti Larry on 01-28-2022 HCG ( test) Ql 1042 mIU/mL <4 [facility] Comment on above: hCG levels with Gest ational AgeGestational Age hCG mIU/mL (IU/L)0.2 - 1 week 5 - 501-2 weeks 50 - 5002-3 weeks 100 - 60660-6 weeks 500 - 608311-7 weeks 1000 - 913028-0 weeks 00978 - 100,0006-8 weeks 50147 - 200,0002-3 months 02854 - 100,000 No Panel Informationon 08-30 Pap Smear Test Ordered See comment W [facility] Work Phone: Comment on above: IGP,rfx Aptima HPV A SCUInterpretation:NEGATIVE FOR INTRAEPITHELIAL LESION AND MALIGNANCYSpecimen Adequacy:Satisfactory for evaluation. Endocervical and/or squamousmetaplastic cells (endocervical component) are present.Comments:The pap smear is a screening test designated to aid in thedetection of pre-malignant and malignant conditions of theuterine cervix. It is not a diagnostic procedure and shouldnot be used as the sole means of detecting cervical cancer. Both false-positive and false-negative reports do occur.This liquid based ThinPrep(R) pap test was screened with the use of an image guided system.Performed by Coredll Nelson [employer] Payroll Processor(ASCP)The HPV DNA reflex criteria were not met with this specimen result therefore, no HPV testing was performed. ____ TESTING PERFORMED AT [facility]. ORIGINAL REPORT ON FILE IN LAB CONTAINS ADDITIONAL TEST SITE INFORMATION. Pathology report final diagnosis Narrative Not Reportable [facility] Work Phone: 2018 Novel Coronavirus (COVI D-19), VIKTORIYA ([id number])Ordered By: Casing Finisher [employer] Stuffer on 01-15-20212018 Novel Coronavirus (COVID-19), VIKTORIYA (75043) Not detected Normal [facility]; [facility] Work Phone: Comment on above: This nucleic acid am plification test was developed and its performancecharacteristics determined by [employer]. Nucleic acidamplification tests include RT-PCR and TMA. This test has not beenFDA cleared or approved. This test has been authorized by FDA underan Emergency Use Authorization (EUA). This test is only authorizedfor the duration of time the declaration that circumstances existjustifying the authorization of the emergency use of in vitrodiagnostic tests for detection of SARS-CoV-2 virus and/or diagnosisof COVID-19 infection under section 564(b)(1) of the Act, 21 U.S.C.360bbb-3(b) (1), unless the authorization is terminated or revokedsooner.When diagnostic testing is negative, the possibility of a falsenegative result should be considered in the context of a patient'srecent exposures and the presence of clinical signs and symptomsconsistent with COVID-19. An individual without symptoms of COVID-19and who is not shedding SARS-CoV-2 virus would expect to have anegative (not detected) result in this assay. PATIENT NOT FASTINGP ERFORMED BY: CRISTIANO [facility] [id number] ABEL Gupta [facility] [id number] BY: BALJINDER [employer] Pcpgkz6879 [facility] [id number] 2018 Novel Coronavirus (COVI D-19), VIKTORIYA ([id number])Ordered By: Casing Finisher [employer] Stuffer on 10-12-20192018 Novel Coronavirus (COVID-19), VIKTORIYA ([id number]) Not Detected Normal [facility] Work Phone: Comment on above: Testing was performe d using the Aptima SARS-CoV-2 assay.This test was developed and its performance characteristics determinedby [employer]. This test has not been FDA cleared orapproved. This test has been authorized by FDA under an Emergency UseAuthorization (EUA). This test is only authorized for the duration oftime the declaration that circumstances exist justifying theauthorization of the emergency use of in vitro diagnostic tests fordetection of SARS-CoV-2 virus and/or diagnosis of COVID-19 infectionunder section 564(b)(1) of the Act, 21 U.S.C. 360bbb-3(b)(1), unlessthe authorization is terminated or revoked sooner.When diagnostic testing is negative, the possibility of a falsenegative result should be considered in the context of a patient'srecent exposures and the presence of clinical signs and symptomsconsistent with COVID-19. An individual without symptoms of COVID-19and who is not shedding SARS-CoV-2 virus would expect to have anegative (not detected) result in this assay. PATIENT NOT FASTINGP ERFORMED BY: =G [employer] [id number] 2019 Novel Coronavirus (COVID-19), VIKTORIYA ([id number]) Not detected Normal [facility]; [facility] Work Phone: Comment on above: Testing was performe d using the Aptima SARS-CoV-2 assay.This test was developed and its performance characteristics determinedby [employer]. This test has not been FDA cleared orapproved. This test has been authorized by FDA under an Emergency UseAuthorization (EUA). This test is only authorized for the duration oftime the declaration that circumstances exist justifying theauthorization of the emergency use of in vitro diagnostic tests fordetection of SARS-CoV-2 virus and/or diagnosis of COVID-19 infectionunder section 564(b)(1) of the Act, 21 U.S.C. 360bbb-3(b)(1), unlessthe authorization is terminated or revoked sooner.When diagnostic testing is negative, the possibility of a falsenegative result should be considered in the context of a patient'srecent exposures and the presence of clinical signs and symptomsconsistent with COVID-19. An individual without symptoms of COVID-19and who is not shedding SARS-CoV-2 virus would expect to have anegative (not detected) result in this assay. PATIENT NOT FASTINGP ERFORMED BY: Shira [employer] [address] [id number] EBV Antibody Profile (71058) Ordered By: Casing Finisher And Stuffer on 06-09-2019 EBV Antibody Profile (70609) [facility] Normal [facility] Work Phone: Comment on above: EBV Interpretation [place]: Antibody Present + Antibody Absent - Interpretation VCA-IgM VCA-IgG EBNA-IgG . No previous infection/ - - - Susceptible Primary infection (new + + - or recent) Past Infection +or- + + See comment below* + - - *Results indicate infection with EBV at some time however cannot predict the timing of the infection since antibodies to EBNA usually develop after primary infection or, alternatively, approximately 5-10% of patients with EBV never develop antibodies to EBNA. PATIENT NOT FASTINGP ERFORMED BY: [employer] Jickmv8900 [address] WestBridgeFormerly [facility] [id number] EBV Antibody Profile (96983) <18.0 Normal 0.0-17.9 [facility] Work Phone: Comment on above: Negative <18.0 Equiv ocal 18.0 - 21.9 Positive >21.9 PATIENT NOT FASTINGP ERFORMED BY: [employer] Agfdqe3843 AppointeddFormerly [facility] [id number] EBV Antibody Profile (16052) <36.0 Normal 0.0-35.9 [facility] Work Phone: Comment on above: Negative <36.0 Equiv ocal 36.0 - 43.9 Positive >43.9 PATIENT NOT FASTINGP ERFORMED BY: BALJINDER [facility] Kpjolu3775 [facility] [id number] EBV Antibody Profile (35742) 97.5 U/mL Abnormal 0.0-17.9 [facility] Work Phone: Comment on above: Negative <18.0 Equiv ocal 18.0 - 21.9 Positive >21.9 PATIENT NOT FASTINGP ERFORMED BY: BALJINDER [facility] Cqovew1201 [facility] [id number] Rapid Flu (29562 x 2)Ordered By: Rosanna Fast on 06-09-2019 FLUAV Ag IA Ql (Throat) normal Normal [facility] Work Phone: Rapid Strep Test, Office ([phone])Ordered By: Rosanna Fast on 06-09-2019 S. pyogenes Ag EIA Ql (Throat) Negative Normal [facility]; [facility] Work Phone: S. pyogenes Ag IA Ql (Unsp spec) Negative Normal [facility] Work Phone: THROAT CULTURE (93250)Ordere d By: C[employer] Finisher [employer] Stuffer on 06-09-2019 Bacteria identified Respiratory culture Nom (Unsp spec) Final report Normal [facility] Work Phone: Comment on above: PATIENT NOT FASTINGP ERFORMED BY: BALJINDER [facility] Tmzunm0316 [facility] [id number] Information: SRC:TH Bacteria identified Respiratory culture Nom (Unsp spec) RRF Normal [facility] Work Phone: Comment on above: Routine respiratory yaima PATIENT NOT FASTINGP ERFORMED BY: BALJINDER [facility] Rmvuwx2482 [facility] [id number] Information: SRC:TH ANNIE CULTURE-OTHER (08656)Ord ered By: Casing Finisher And Stuffer on 09-30-2018 Bacteria identified Respiratory culture Nom (Unsp spec) RRF Normal [facility] Work Phone: Comment on above: Routine respiratory yaima PATIENT NOT FASTINGP ERFORMED BY: BALJINDER [facility] Fbkanu9155 [facility] [id number] Information: SRC:TH Bacteria identified Respiratory culture Nom (Unsp spec) Final report Normal [facility] Work Phone: Comment on above: PATIENT NOT FASTINGP ERFORMED BY: BALJINDER Tobin6370 [facility] [id number] Information: SRC:TH C-REACT PROT HIGH SENS(hsCRP ) (91291)Ordered By: Casing Finisher And Stuffer on 09-30-2018 CRP High sensitivity method mass conc 101.64 mg/L Abnormal 0.00-3.00 [facility] Work Phone: Comment on above: Results confirmed on dilution. Relative Risk for Future Cardiovascular Event Low <1.00 Average 1.00 - 3.00 High >3.00 PATIENT NOT FASTINGP ERFORMED BY: BALJINDER [facility] Rorlba6866 [facility] [id number] CBC, Platelets & Auto Diff ( 29063)Ordered By: Casing Finisher And Stuffer on 09-30-2018 Basophils #/vol (Bld) 0.0 {x10E3/uL} Normal 0.0-0.2 [facility] Work Phone: Comment on above: PATIENT NOT FASTINGP ERFORMED BY: BALJINDER Shay Sirgtr1809 [facility] [id number] Basophils (Bld) [#/Vol] 0.0 10*3/uL Normal 0.0-0.2 [facility]; [facility] Work Phone: Comment on above: PATIENT NOT FASTINGP ERFORMED BY: BALJINDER [facility] [id number] Basophils/100 WBC (Bld) 0 % Normal [facility] Work Phone: Comment on above: PATIENT NOT FASTINGP ERFORMED BY: BALJINDER [place] [id number] [facility] [id number] Eosinophils #/vol (Bld) 0.5 {x10E3/uL} Abnormal 0.0-0.4 [facility] Work Phone: Comment on above: PATIENT NOT FASTINGP ERFORMED BY: [place] [id number] [facility] [id number] Eosinophils (Bld) [#/Vol] 0.5 10*3/uL Abnormal 0.0-0.4 [facility]; [facility] Work Phone: Comment on above: PATIENT NOT FASTINGP ERFORMED BY: BALJINDER [facility] Qouzxs0879 [address] [facility] [place] [id number] Eosinophils/100 WBC (Bld) 6 % Normal [facility] Work Phone: Comment on above: PATIENT NOT FASTINGP ERFORMED BY: BALJINDER [facility] Qrrmrp5255 [address] [facility] [id number] Erythrocyte distribution width Ratio (RBC) 14.5 % Normal 12.3-15.4 [facility] Work Phone: Comment on above: PATIENT NOT FASTINGP ERFORMED BY: BALJINDER BeanColilliam SpragueGeqrds3844 [address] [facility] [id number] Hematocrit Volume Fraction (Bld) 35.3 % Normal 34.0-46.6 [facility] Work Phone: Comment on above: PATIENT NOT FASTINGP ERFORMED BY: BALJINDER [facility] Kdftii8839 [address] [facility] [id number] Hemoglobin mass conc (Bld) 11.8 g/dL Normal 11.1-15.9 [facility] Work Phone: Comment on above: PATIENT NOT FASTINGP ERFORMED BY: BALJINDER [facility] Zmtraq4233 [address] [facility] [id number] Immature granulocytes #/vol (Bld) 0.0 {x10E3/uL} Normal 0.0-0.1 [facility] Work Phone: Comment on above: PATIENT NOT FASTINGP ERFORMED BY: BALJINDER [facility] Supkjy4138 [address] [facility] [place] [id number] Immature granulocytes (Bld) [#/Vol] 0.0 10*3/uL Normal 0.0-0.1 [facility]; [facility] Work Phone: Comment on above: PATIENT NOT FASTINGP ERFORMED BY: BALJINDER [facility] Bnxdke1616 [address] [facility] [place] [id number] Immature granulocytes/100 WBC (Bld) 0 % Normal [facility] Work Phone: Comment on above: PATIENT NOT FASTINGP ERFORMED BY: BALJINDER [facility] Kwnklo7608 [address] [facility] [place] [id number] Lymphocytes #/vol (Bld) 2.2 {x10E3/uL} Normal 0.7-3.1 [facility] Work Phone: Comment on above: PATIENT NOT FASTINGP ERFORMED BY: BALJINDER [facility] Zwfylq0428 [address] [facility] [place] [id number] Lymphocytes (Bld) [#/Vol] 2.2 10*3/uL Normal 0.7-3.1 [facility]; [facility] Work Phone: Comment on above: PATIENT NOT FASTINGP ERFORMED BY: BALJINDER Spraguelin6370 [address] [facility] [id number] Lymphocytes/100 WBC (Bld) 25 % Normal [facility] Work Phone: Comment on above: PATIENT NOT FASTINGP ERFORMED BY: BALJINDER LabColilliam SpragueTinvwn3763 [address] [facility] [id number] [facility]CH Entitic mass (RBC) 25.5 pg Abnormal 26.6-33.0 [facility] Work Phone: Comment on above: PATIENT NOT FASTINGP ERFORMED BY: BALJINDER [facility] Iocafu9758 [address] [facility] [id number] MCHC mass conc (RBC) 33.4 g/dL Normal 31.5-35.7 [facility] Work Phone: Comment on above: PATIENT NOT FASTINGP ERFORMED BY: BALJINDER [facility] Wiphan2960 [address] [facility] [place] [id number] MCV Entitic volume (RBC) 76 fL Abnormal 79-97 [facility] Work Phone: Comment on above: PATIENT NOT FASTINGP ERFORMED BY: BALJINDER [facility] Gbcbat5828 [address] [facility] [place] [id number] Monocytes #/vol (Bld) 1.0 {x10E3/uL} Abnormal 0.1-0.9 [facility] Work Phone: Comment on above: PATIENT NOT FASTINGP ERFORMED BY: CB [facility] Bimesl6987 [address] RoadDublin [place] [id number] Monocytes (Bld) [#/Vol] 1.0 10*3/uL Abnormal 0.1-0.9 [facility]; [facility] Work Phone: Comment on above: PATIENT NOT FASTINGP ERFORMED BY: CB [facility] Nyuswe4050 [address] RoadDublin [place] [id number] Monocytes/100 WBC (Bld) 12 % Normal [facility] Work Phone: Comment on above: PATIENT NOT FASTINGP ERFORMED BY: BALJINDER [facility] Gzrren5605 [address] RoadDublin [place] [id number] Neutrophils #/vol (Bld) 4.9 {x10E3/uL} Normal 1.4-7.0 [facility] Work Phone: Comment on above: PATIENT NOT FASTINGP ERFORMED BY: CB [facility] Ocpheq2743 [address] RoadDublin [place] [id number] Neutrophils (Bld) [#/Vol] 4.9 10*3/uL Normal 1.4-7.0 [facility]; [facility] Work Phone: Comment on above: PATIENT NOT FASTINGP ERFORMED BY: CB [facility] Zdzisc0106 [address] RoadDublin [place] [id number] Neutrophils/100 WBC (Bld) 57 % Normal [facility] Work Phone: Comment on above: PATIENT NOT FASTINGP ERFORMED BY: CB [facility] Ciopqg3299 [address] RoadDublin [place] [id number] Platelets #/vol (Bld) 266 {x10E3/uL} Normal 150-450 [facility] Work Phone: Comment on above: PATIENT NOT FASTINGP ERFORMED BY: CB [facility] Qnukpc2061 [address] RoadDublin [place] [id number] Platelets (Bld) [#/Vol] 266 10*3/uL Normal 150-450 [facility] Internal Medicine; [facility] Work Phone: Comment on above: PATIENT NOT FASTINGP ERFORMED BY: BALJINDER Tobin6370 [facility] [id number] RBC #/vol (Bld) 4.63 {x10E6/uL} Normal 3.77-5.28 [facility] Internal Medicine Work Phone: Comment on above: PATIENT NOT FASTINGP ERFORMED BY: BALJINDER [facility] Gnxzus2702 [facility] [id number] RBC (Bld) [#/Vol] 4.63 10*6/uL Normal 3.77-5.28 [facility] Internal Medicine; [facility] Internal Medicine Work Phone: Comment on above: PATIENT NOT FASTINGP ERFORMED BY: BALJINDER [place] [id number] [facility] [id number] WBC #/vol (Bld) 8.6 {x10E3/uL} Normal 3.4-10.8 [facility] Internal Medicine Work Phone: Comment on above: PATIENT NOT FASTINGP ERFORMED BY: BALJINDER Shay Joosqx8197 [facility] [id number] WBC (Bld) [#/Vol] 8.6 10*3/uL Normal 3.4-10.8 [facility] Internal Medicine; [facility] Internal Medicine Work Phone: Comment on above: PATIENT NOT FASTINGP ERFORMED BY: BALJINDER [facility]6370 [facility] [id number] EBV Panel ([id number])Ordered By: Casing Finisher And Stuffer on 09-30-2018 EBV capsid IgG IA Qn (S) 71.7 U/mL Abnormal 0.0-17.9 [facility] Internal Medicine Work Phone: Comment on above: Negative <18.0 Equiv ocal 18.0 - 21.9 Positive >21.9 PATIENT NOT FASTINGP ERFORMED BY: [facility]6370 [facility] [id number] EBV capsid IgM IA Qn (S) 38.7 U/mL Abnormal 0.0-35.9 [facility] Work Phone: Comment on above: A second sample shou ld be collected and tested no less than 2- 4 weeks. Negative <36.0 Equivocal 36.0 - 43.9 Positive >43.9 PATIENT NOT FASTINGP ERFORMED BY: [email or web address] [facility] [id number] EBV early IgG Qn (S) <9.0 Normal 0.0-8.9 [facility] Internal Medicine Work Phone: Comment on above: Negative < 9.0 Equiv ocal 9.0 - 10.9 Positive >10.9 PATIENT NOT FASTINGP ERFORMED BY: [email or web address] [facility] [id number] EBV nuclear IgG IA Qn (S) <18.0 Normal 0.0-17.9 [facility] Work Phone: Comment on above: Negative <18.0 Equiv ocal 18.0 - 21.9 Positive >21.9 PATIENT NOT FASTINGP ERFORMED BY: [email or web address] [facility] [id number] Service comment Interp (Unsp spec) SPRCS Normal [facility] Work Phone: Comment on above: EBV Interpretation C medellin . Interpretation EBV-IgM EA(D)-IgG VCA-IgG EBNA-IgG . EBV Seronegative - - - - Early Phase + - - - Acute Primary + +or- + - Infection Convalescence/Past - +or- + + Infection Reactivated +or- +or- + + Infection + Antibody Present - Antibody Absent PATIENT NOT FASTINGP ERFORMED BY: [facility] [facility]Former[facility] [id number] Rapid Strep Test, Office (07 [phone])Ordered By: Temitope Hendrickson on 09-30-2018 S. pyogenes Ag EIA Ql (Throat) Negative Normal [facility]; [facility] Work Phone: S. pyogenes Ag IA Ql (Unsp spec) Negative Normal [facility] Work Phone: SED RATE ERYTHROCYTE ([id number]) Ordered By: Casing Finisher And Stuffer on 09-30-2018 ESR Velocity (Bld) 60 mm/h Abnormal 0-32 [facility] Internal Medicine Work Phone: Comment on above: PATIENT NOT FASTINGP ERFORMED BY: [facility] Gxnjgy4856 [address] [place] [id number] Rapid Flu (88124 x 2)Ordered By: Rosanna Fast on 08-03-2018 FLUAV Ag IA Ql (Throat) Negative Normal [facility] Work Phone: FLUAV Ag IA Ql (Throat) Negative Normal [facility]; [facility] Work Phone: Rapid Strep Test, Office ([phone])Ordered By: Rosanna Fast on 08-03-2018 S. pyogenes Ag EIA Ql (Throat) Negative Normal [facility]; [facility] Work Phone: S. pyogenes Ag IA Ql (Unsp spec) Negative Normal [facility] Work Phone: CBC W/Diff, AutomatedOrdered By: Casing Finisher And Stuffer on 05-20-2018 Absolute Neut 11.9 {X10_3/uL} Abnormal 2.0-7.7 [facility] Internal Medicine Work Phone: Comment on above: [facility] [address] [place], [address] Basophils/100 WBC (Bld) 0.1 % Normal 0-1 [facility] Work Phone: Comment on above: [facility] [address] [place], [address] Eosinophils/100 WBC (Bld) 0.0 % Normal 0-5 [facility] Work Phone: Comment on above: [facility] [address] [place], [address] Erythrocyte distribution width Ratio (RBC) 13.7 % Normal 11.6-14.6 [facility] Work Phone: Comment on above: [facility] [address] [place], [place], [phone] Hematocrit Volume Fraction (Bld) 42.1 % Normal 37-47 [facility] Work Phone: Comment on above: [facility] [address] [place], [place], [phone] Hemoglobin mass conc (Bld) 13.3 g/dL Normal 12.0-15.0 [facility] Work Phone: Comment on above: [facility] [address] [place], [place], [phone](986 IM GRAN % 0.300 % Normal 0.0-0.9 [facility] Work Phone: Comment on above: IG% - Immature Granu locytes (promyelocytes, myelocytes andmetamyelocytes) > 1% indicates that a LEFT SHIFT is Present. [place] [address] [place], [place], [phone] Lymphocytes #/vol (Bld) 1.31 {X10_3/ul} Normal 0.83-4.51 [facility] Work Phone: Comment on above: [facility] [address] [place], [address] Lymphocytes/100 WBC (Bld) 9.5 % Abnormal 19-41 [facility] Work Phone: Comment on above: [place] [address] [place], [address] MCH Entitic mass (RBC) 25.8 pg Abnormal 27.0-32.0 [facility] Internal Medicine Work Phone: Comment on above: [facility] [address] [place], [address] MCHC mass conc (RBC) 31.6 {g/gl} Abnormal 32-36 Com prehensive Internal Medicine Work Phone: Comment on above: [facility] [address] [place], [address] MCV Entitic volume (RBC) 81.7 fL Normal 81-99 [facility] Work Phone: Comment on above: [facility] [address] [place], [address] Monocytes/100 WBC (Bld) 4.3 % Normal 0-10 [facility] Work Phone: Comment on above: [facility] [address] [place], [address] Neutrophils/100 WBC (Bld) 85.8 % Abnormal 47-70 [facility] Work Phone: Comment on above: [facility] [address] [place], [address] Platelet mean volume Entitic volume (Bld) 10.6 fL Normal 6.2-12.0 Comprehensi Internal Medicine Work Phone: Comment on above: [facility] [address] [place], [address] Platelets #/vol (Bld) 311 10*3/uL Normal 150-450 [facility] Internal Medicine Work Phone: Comment on above: [facility] [address] [place], [address] RBC #/vol (Bld) 5.15 {M/mm3} Normal 4.2-5.4 [facility] Internal Medicine Work Phone: Comment on above: [facility] [address] [place], [address] RDW SD 41.1 fL Normal 35.1-43.9 [facility] Internal Medicine Work Phone: Comment on above: [facility] [address] [place], [address] WBC #/vol (Bld) 13.8 10*3/uL Abnormal 4.4-11.0 Compreh ensive Internal Medicine Work Phone: Comment on above: [facility] [address] [place], [place], [address] Comprehensive Metabolic Prof ilOrdered By: Casing Finisher And Stuffer on 05-20-2018 Comprehensive metabolic 2000 panel 21.0 mmol/L Normal 21.0-32.0 Comprehensi ve Internal Medicine Work Phone: Comment on above: [facility] [address] [place], [place], [address] Comprehensive metabolic 2000 panel 107 mmol/L Normal 98-107 Comprehensi ve Internal Medicine Work Phone: Comment on above: [facility] [address] [place], [place], [address] Comprehensive metabolic 2000 panel 4.7 mmol/L Normal 3.5-5.1 Comprehensi ve Internal Medicine Work Phone: Comment on above: [facility] [address] [place], [place], [address] Comprehensive metabolic 2000 panel 139 mmol/L Normal 136-145 Comprehensi ve Internal Medicine Work Phone: Comment on above: [facility] [address] [place], [place], [address] Comprehensive metabolic 2000 panel 0.20 mg/dL Normal 0.20-1.00 Comprehensi ve Internal Medicine Work Phone: Comment on above: [facility] [address] [place], [address] Comprehensive metabolic 2000 panel 17 U/L Normal 13-56 Comprehensi ve Internal Medicine Work Phone: Comment on above: [facility] [address] [place], [place], [address] Comprehensive metabolic 2000 panel 123 U/L Abnormal 45-117 Comprehensi ve Internal Medicine Work Phone: Comment on above: [facility] [address] [place], [place], [address] Comprehensive metabolic 2000 panel 0.83 mg/dL Normal 0.55-1.02 Comprehensi ve Internal Medicine Work Phone: Comment on above: The validity of the calculated GFR AND GFRAA in patients over70 years has not been determined. Clinical correlation isessential. [facility] [address] [place], [place], [phone] Comprehensive metabolic 2000 panel 6 U/L Abnormal 15-37 Comprehensi ve Internal Medicine Work Phone: Comment on above: [facility] [address] [place], [place], [phone] Comprehensive metabolic 2000 panel 9.3 mg/dL Normal 8.5-10.1 Comprehensi ve Internal Medicine Work Phone: Comment on above: [facility] [address] [place], [place], [address] Comprehensive metabolic 2000 panel 0.9 {RATIO} Normal 0.9-2.4 Comprehensi ve Internal Medicine Work Phone: Comment on above: [facility] [address] [place], [place], [address] Comprehensive metabolic 2000 panel 4.1 g/dL Normal 2.2-4.2 Comprehensi ve Internal Medicine Work Phone: Comment on above: [facility] [address] [place], [place], [address] Comprehensive metabolic 2000 panel 11 1 Normal 5-15 Comprehensi ve Internal Medicine Work Phone: Comment on above: [facility] [address] [place], [place], [phone] Comprehensive metabolic 2000 panel 7.8 g/dL Normal 6.4-8.2 Comprehensi ve Internal Medicine Work Phone: Comment on above: [facility] [address] [place], [place], [address] Comprehensive metabolic 2000 panel 8.4 {RATIO} Abnormal 10-20 Comprehensi ve Internal Medicine Work Phone: Comment on above: [facility] [address] [place], [place], [address] Comprehensive metabolic 2000 panel 108 mL/min Normal Comprehensi ve Internal Medicine Work Phone: Comment on above: GFR Calc [facility] [address] [place], [place], [phone] Comprehensive metabolic 2000 panel 89 mL/min Normal Comprehensi ve Internal Medicine Work Phone: Comment on above: Non- GFR Calc [facility] [address] [place], [place], [phone] Comprehensive metabolic 2000 panel 7 mg/dL Normal 7-18 Comprehensi ve Internal Medicine Work Phone: Comment on above: [facility] [address] [place], [place], [address] Comprehensive metabolic 2000 panel 118 mg/dL Abnormal 74-106 Comprehensi ve Internal Medicine Work Phone: Comment on above: Fasting Glucose resu lt from 100 to 125 mg/dLsuggests IMPAIRED HOMEOSTASIS per A.D.A. criteria.Please note revised GLUCOSE reference range [id number]/02/2018. [facility] [address] [place], [place], [address] Comprehensive metabolic 2000 panel 3.7 g/dL Normal 3.2-5.0 Comprehensi ve Internal Medicine Work Phone: Comment on above: [facility] [address] [place], [place], [address] D-Dimer Quantitative (DVT/PE )Ordered By: Casing Finisher And Stuffer on 05-20-2018 D-Dimer Quantitative (DVT/PE) < 0.27 Abnormal 0.27-0.49 [facility] Work Phone: Comment on above: NORMAL D-Dimer level (<0.50) indicates no DVT or PE. [facility] [address] [place], [place], [address] Thyroid Stim Hormone (TSH)Or dered By: Casing Finisher And Stuffer on 05-20-2018 Thyrotropin Qn 0.41 {uIU/mL} Normal 0.358-3.74 Compreh ensive Internal Medicine Work Phone: Comment on above: [facility] [address] [place], [place], [address] PAP I-G w/rfx hrHPVOrdered B y: Casing Finisher And Stuffer on 01-14-2018 COMM . Normal [facility] Work Phone: TEST METHOD Comment Normal [facility] Work Phone: Comment on above: This liquid based Th inPrep(R) pap test was screened withthe use of an image guided system. Joi Arellano pervisory Sr. Payroll Processor (ASCP) Satisfactory for cristina luation. No endocervical component is identified. Lashawn Hernandez, Cytot echnologist (ASCP) The HPV DNA reflex wilber parker were not met with this specimenresult therefore, no HPV testing was performed.Performed at: [address] [id number] Director: Destinee Burgos MD, Phone: [phone] NEGATIVE FOR INTRAEP ITHELIAL LESION AND MALIGNANCY.THIS SPECIMEN WAS RESCREENED PART OF OUR DISEASE CASE MANAGER PROGRAM. The Pap smear is a s creening test designed to aid in thedetection of premalignant and malignant conditions of theuterine cervix. It is not a diagnostic procedure andshould not be used as the sole means of detecting cervicalcancer. Both false-positive and false-negative reports dooccur. PAP I-G w/rfx hrHPV Comment Normal Compr ehensive Internal Medicine Work Phone: Comment on above: The Pap smear is a s creening test designed to aid in thedetection of premalignant and malignant conditions of theuterine cervix. It is not a diagnostic procedure andshould not be used as the sole means of detecting cervicalcancer. Both false-positive and false-negative reports dooccur. CYTOLOGY INFORMATION :- CLINICAL INFORMATION:- DATE LMP/MENOPAUSE: 01/01/18 LMP- COLLECTION VIAL: Thin Prep Vial- MEMBERSHIP SECRETARY SOURCE: CERVICAL/ENDOCERVICAL- COLLECTION TECHNIQUE: BRUSH/SPATULASpecimen Comment: [id number] Comment: Source.............Cervix;EndocervixSpecimen Comment: LMP / Prev Treat...[id number] Comment: No. of containers..01 ThinPrep VialLabCorp (refer to report for specific site)refer to report for address and phone number Akbar Schmidtt echnologist (ASCP) Satisfactory for cristina luation. No endocervical component is identified. The HPV DNA reflex c elena were not met with this specimenresult therefore, no HPV testing was performed.Performed at: [address] [id number] Director: Destinee Burgos MD, Phone: [phone] This liquid based Th inPrep(R) pap test was screened withthe use of an image guided system. Joi Arellano pervisory Sr. Payroll Processor (ASCP) NEGATIVE FOR INTRAEP ITHELIAL LESION AND MALIGNANCY.THIS SPECIMEN WAS RESCREENED PART OF OUR DISEASE CASE MANAGER PROGRAM. PAP I-G w/rfx hrHPV . Normal Compr [facility] Internal Medicine Work Phone: Comment on above: CYTOLOGY INFORMATION :- CLINICAL INFORMATION:- DATE LMP/MENOPAUSE: 01/01/18 LMP- COLLECTION VIAL: Thin Prep Vial- MEMBERSHIP SECRETARY SOURCE: CERVICAL/ENDOCERVICAL- COLLECTION TECHNIQUE: BRUSH/SPATULASpecimen Comment: [id number] Comment: Source.............Cervix;EndocervixSpecimen Comment: LMP / Prev Treat...[id number]=[id number] Comment: No. of containers..01 ThinPrep VialLabCorp (refer to report for specific site)refer to report for address and phone number Rapid Strep Test, Office ([phone])Ordered By: Rosanna Scales on 06-16-2017 S. pyogenes Ag EIA Ql (Throat) Negative Normal [facility]; [facility] Work Phone: S. pyogenes Ag IA Ql (Unsp spec) Negative Normal [facility] Work Phone: THROAT CULTURE ([phone])Ordere d By: Casing Finisher And Stuffer on 06-16-2017 Bacteria identified Respiratory culture Nom (Unsp spec) Final report Normal [facility] Work Phone: Comment on above: PATIENT NOT FASTINGP ERFORMED BY: CB [facility] Zdwpxr0983 [address] [facility] [id number] Information: SRC:TH Bacteria identified Respiratory culture Nom (Unsp spec) RRF Normal [facility] Work Phone: Comment on above: Routine respiratory yaima PATIENT NOT FASTINGP ERFORMED BY: CB [facility] Iqavti9813 [facility] [id number] Information: SRC:TH CBC WITH MANUAL DIFF ([id number]) Ordered By: Casing Finisher And Stuffer on 06-04-2017 Basophils #/vol (Bld) 0.0 {x10E3/uL} Normal 0.0-0.2 [facility] Work Phone: Comment on above: stat; PATIENT NOT FA STINGPERFORMED BY: CB [facility] Vhalnp7704 [address] [facility] [id number] Basophils (Bld) [#/Vol] 0.0 10*3/uL Normal 0.0-0.2 [facility]; [facility] Work Phone: Comment on above: stat; PATIENT NOT FA STINGPERFORMED BY: CB [facility] Xejnzg9674 [facility] [id number] Basophils Auto #/vol (Bld) 0.0 {x10E3/uL} Normal 0.0-0.2 [facility] Work Phone: Basophils/100 WBC (Bld) 0 % Normal [facility] Work Phone: Comment on above: stat; PATIENT NOT FA STINGPERFORMED BY: CB [facility] Ftzgjc8577 [facility] [id number] Basophils/100 WBC Auto (Bld) 0 % Normal [facility] Work Phone: Eosinophils #/vol (Bld) 0.2 {x10E3/uL} Normal 0.0-0.4 [facility] Work Phone: Comment on above: stat; PATIENT NOT FA STINGPERFORMED BY: BALJINDER [facility] Ootobg6080 [address] [facility]Former[facility] [id number] Eosinophils (Bld) [#/Vol] 0.2 10*3/uL Normal 0.0-0.4 [facility]; [facility] Work Phone: Comment on above: stat; PATIENT NOT FA STINGPERFORMED BY: BALJINDER [facility] Ubiolf9882 [address] [facility]Former[facility] [id number] Eosinophils Auto #/vol (Bld) 0.2 {x10E3/uL} Normal 0.0-0.4 [facility] Work Phone: Eosinophils/100 WBC (Bld) 2 % Normal [facility] Work Phone: Comment on above: stat; PATIENT NOT FA STINGPERFORMED BY: BALJINDER [facility] Vblslb2051 [address] [facility] [id number] Eosinophils/100 WBC Auto (Bld) 2 % Normal [facility] Work Phone: Erythrocyte distribution width Auto Ratio (RBC) 14.3 % Normal 12.3-15.4 [facility] Work Phone: Erythrocyte distribution width Ratio (RBC) 14.3 % Normal 12.3-15.4 [facility] Work Phone: Comment on above: stat; PATIENT NOT FA STINGPERFORMED BY: BALJINDER [facility] Nmtvfy5262 [address] [facility]Former[facility] [id number] Hematocrit Auto Volume Fraction (Bld) 36.4 % Normal 34.0-46.6 [facility] Work Phone: Hematocrit Volume Fraction (Bld) 36.4 % Normal 34.0-46.6 [facility] Work Phone: Comment on above: stat; PATIENT NOT FA STINGPERFORMED BY: CB [facility] Rrxhtn5786 [address] [facility] [place] [id number] Hemoglobin mass conc (Bld) 11.9 g/dL Normal 11.1-15.9 [facility] Work Phone: Comment on above: stat; PATIENT NOT FA STINGPERFORMED BY: BALJINDER Shay Ixvgiz2922 [facility] [id number] Immature granulocytes #/vol (Bld) 0.0 {x10E3/uL} Normal 0.0-0.1 [facility] Work Phone: Comment on above: stat; PATIENT NOT FA STINGPERFORMED BY: [place] [id number] [facility] [id number] Immature granulocytes (Bld) [#/Vol] 0.0 10*3/uL Normal 0.0-0.1 [facility]; [facility] Work Phone: Comment on above: stat; PATIENT NOT FA STINGPERFORMED BY: [place] [id number] [facility] [id number] Immature granulocytes/100 WBC (Bld) 0 % Normal [facility] Work Phone: Comment on above: stat; PATIENT NOT FA STINGPERFORMED BY: BeanRegina [place] [id number] [facility] [id number] Lymphocytes #/vol (Bld) 1.6 {x10E3/uL} Normal 0.7-3.1 [facility] Work Phone: Comment on above: stat; PATIENT NOT FA STINGPERFORMED BY: [place] [id number] [facility] [id number] Lymphocytes (Bld) [#/Vol] 1.6 10*3/uL Normal 0.7-3.1 [facility]; [facility] Work Phone: Comment on above: stat; PATIENT NOT FA STINGPERFORMED BY: [place] [id number] [facility] [id number] Lymphocytes Auto #/vol (Bld) 1.6 {x10E3/uL} Normal 0.7-3.1 [facility] Work Phone: Lymphocytes/100 WBC (Bld) 12 % Normal [facility] Work Phone: Comment on above: stat; PATIENT NOT FA STINGPERFORMED BY: BALJINDER [facility] Fqjblz4772 [address] [facility] [id number] Lymphocytes/100 WBC Auto (Bld) 12 % Normal [facility] Work Phone: MCH Auto Entitic mass (RBC) 26.5 pg Abnormal 26.6-33.0 [facility] Work Phone: MCH Entitic mass (RBC) 26.5 pg Abnormal 26.6-33.0 [facility] Internal Medicine Work Phone: Comment on above: stat; PATIENT NOT FA STINGPERFORMED BY: BALJINDER [facility] Sdykpz4568 [facility] [id number] MCHC Auto mass conc (RBC) 32.7 g/dL Normal 31.5-35.7 [facility] Work Phone: MCHC mass conc (RBC) 32.7 g/dL Normal 31.5-35.7 [facility] Internal Medicine Work Phone: Comment on above: stat; PATIENT NOT FA STINGPERFORMED BY: BALJINDER [facility] Hkhjfu3112 [facility] [id number] MCV Auto Entitic volume (RBC) 81 fL Normal 79-97 [facility] Work Phone: MCV Entitic volume (RBC) 81 fL Normal 79-97 [facility] Work Phone: Comment on above: stat; PATIENT NOT FA STINGPERFORMED BY: BALJINDER [facility] Lhzjok9305 [facility] [id number] Monocytes #/vol (Bld) 1.2 {x10E3/uL} Abnormal 0.1-0.9 [facility] Work Phone: Comment on above: stat; PATIENT NOT FA STINGPERFORMED BY: CB [facility] Pwjhuj0848 [facility] [id number] Monocytes (Bld) [#/Vol] 1.2 10*3/uL Abnormal 0.1-0.9 [facility]; [facility] Work Phone: Comment on above: stat; PATIENT NOT FA STINGPERFORMED BY: CB [facility] Oociqw3298 [address] RoadAtrium [facility]in [place] [id number] Monocytes Auto #/vol (Bld) 1.2 {x10E3/uL} Abnormal 0.1-0.9 [facility] Work Phone: Monocytes/100 WBC (Bld) 9 % Normal [facility] Work Phone: Comment on above: stat; PATIENT NOT FA STINGPERFORMED BY: CB [facility] Eqkszj6341 [facility] RoadAtrium Health [place]in [place] [id number] Monocytes/100 WBC Auto (Bld) 9 % Normal [facility] Work Phone: Neutrophils #/vol (Bld) 9.8 {x10E3/uL} Abnormal 1.4-7.0 [facility] Work Phone: Comment on above: stat; PATIENT NOT FA STINGPERFORMED BY: CB [facility] Nfngcp0443 [facility] RoadFormerly [facility] [id number] Neutrophils (Bld) [#/Vol] 9.8 10*3/uL Abnormal 1.4-7.0 [facility]; [facility] Work Phone: Comment on above: stat; PATIENT NOT FA STINGPERFORMED BY: CB [facility] Mgdgrs3015 [address] [facility] [place] [id number] Neutrophils Auto #/vol (Bld) 9.8 {x10E3/uL} Abnormal 1.4-7.0 [facility] Work Phone: Neutrophils/100 WBC (Bld) 77 % Normal [facility] Work Phone: Comment on above: stat; PATIENT NOT FA STINGPERFORMED BY: CB [facility] Hloett[address] [facility] [place] [id number] Neutrophils/100 WBC Auto (Bld) 77 % Normal [facility] Work Phone: Platelets #/vol (Bld) 238 {x10E3/uL} Normal 150-379 [facility] Work Phone: Comment on above: stat; PATIENT NOT FA STINGPERFORMED BY: BALJINDER Keeann70 [address] [facility] [place] [id number] Platelets (Bld) [#/Vol] 238 10*3/uL Normal 150-379 [facility]; [facility] Work Phone: Comment on above: stat; PATIENT NOT FA STINGPERFORMED BY: BALJINDER Wang [address] [facility] [id number] Platelets Auto #/vol (Bld) 238 {x10E3/uL} Normal 150-379 [facility] Work Phone: RBC #/vol (Bld) 4.49 {x10E6/uL} Normal 3.77-5.28 Comp rehensive Internal Medicine Work Phone: Comment on above: stat; PATIENT NOT FA STINGPERFORMED BY: BALJINDER Wang [facility] [id number] RBC (Bld) [#/Vol] 4.49 10*6/uL Normal 3.77-5.28 Compr ehensive Internal Medicine; [facility] Work Phone: Comment on above: stat; PATIENT NOT FA STINGPERFORMED BY: BALJINDER Tobin6370 [facility] [id number] RBC Auto #/vol (Bld) 4.49 {x10E6/uL} Normal 3.77-5.28 [facility] Work Phone: WBC #/vol (Bld) 12.7 {x10E3/uL} Abnormal 3.4-10.8 Comp rehensive Internal Medicine Work Phone: Comment on above: stat; PATIENT NOT FA STINGPERFORMED BY: BALJINDER Keenan70 [address] [facility] [id number] WBC (Bld) [#/Vol] 12.7 10*3/uL Abnormal 3.4-10.8 Compr ehensive Internal Medicine; [facility] Work Phone: Comment on above: stat; PATIENT NOT FA STINGPERFORMED BY: CB Viridis LearningAcoma-Canoncito-Laguna Service UnitVybxhz4966 [facility] [id number] WBC Auto #/vol (Bld) 12.7 {x10E3/uL} Abnormal 3.4-10.8 [facility] Work Phone: EBV Panel (93083)Ordered By: C[employer]isher [employer] Stuffer on 06-04-2017 EBV capsid IgG IA Qn (S) 100.0 U/mL Abnormal 0.0-17.9 [facility] Work Phone: Comment on above: Negative <18.0 Equiv ocal 18.0 - 21.9 Positive >21.9 PATIENT NOT FASTINGP ERFORMED BY: [facility]6370 [facility] [id number] EBV capsid IgM IA Qn (S) 47.1 U/mL Abnormal 0.0-35.9 [facility] Work Phone: Comment on above: Negative <36.0 Equiv ocal 36.0 - 43.9 Positive >43.9 PATIENT NOT FASTINGP ERFORMED BY: [facility]6370 [facility] [id number] EBV early IgG Qn (S) <9.0 Normal 0.0-8.9 Comp [facility] Internal Medicine Work Phone: Comment on above: Negative < 9.0 Equiv ocal 9.0 - 10.9 Positive >10.9 PATIENT NOT FASTINGP ERFORMED BY: [facility] HospitalSimulmediaRaritan Bay Medical Center, Old BridgeKjatcv3866 [facility] [id number] EBV nuclear IgG IA Qn (S) <18.0 Normal 0.0-17.9 [facility] Work Phone: Comment on above: Negative <18.0 Equiv ocal 18.0 - 21.9 Positive >21.9 PATIENT NOT FASTINGP ERFORMED BY: [facility] Hospital6370 [facility] [id number] Service comment Interp (Unsp spec) SPRCS Normal [facility] Work Phone: Comment on above: EBV Interpretation C medellin . Interpretation EBV-IgM EA(D)-IgG VCA-IgG EBNA-IgG . EBV Seronegative - - - - Early Phase + - - - Acute Primary + +or- + - Infection Convalescence/Past - +or- + + Infection Reactivated +or- + + + Infection + Antibody Present - Antibody Absent PATIENT NOT FASTINGP ERFORMED BY: BALJINDER Won Jszasv5075 [address]ne[address] RoadDublin [place] [id number] Hepatic Function Panel (7)Or dered By: [employer] Stuffer on 06-04-2017 Albumin mass conc 4.1 g/dL Normal 3.5-5.5 [facility] Internal Medicine Work Phone: Comment on above: PATIENT NOT FASTINGP ERFORMED BY: BALJINDER [facility] Zzevvd1969 [address] [facility] [place] [id number] ALP enzyme act/vol 96 [iU]/L Normal 39-117 [facility] Internal Medicine Work Phone: Comment on above: PATIENT NOT FASTINGP ERFORMED BY: BALJINDER LabYogesh Gqwncs2257 [address] [facility] [place] [id number] ALT enzyme act/vol 10 [iU]/L Normal 0-32 [facility] Internal Medicine Work Phone: Comment on above: PATIENT NOT FASTINGP ERFORMED BY: BALJINDER Laurita Yjuzvw3644 [address] [facility] [place] [id number] AST enzyme act/vol 11 [iU]/L Normal 0-40 [facility] Internal Medicine Work Phone: Comment on above: PATIENT NOT FASTINGP ERFORMED BY: LabYogesh Kuprjt7139 [address] [facility] [id number] Bilirubin mass conc mg/dL Normal 0.0-1.2 [facility] Internal Medicine Work Phone: Comment on above: PATIENT NOT FASTINGP ERFORMED BY: BALJINDER [facility] Yshtvw3381 [address] [facility] [place] [id number] Bilirubin.direct mass conc 0.08 mg/dL Normal 0.00-0.40 [facility] Internal Medicine Work Phone: Comment on above: PATIENT NOT FASTINGP ERFORMED BY: BALJINDER [facility] Ujizdg7312 [address] [facility] [id number] Protein mass conc 6.4 g/dL Normal 6.0-8.5 Compreh ensive Internal Medicine Work Phone: Comment on above: PATIENT NOT FASTINGP ERFORMED BY: BALJINDER LabRyne Tobin6370 [address] RoadFormerly [facility] [id number] Rapid Flu (57375 x 2)Ordered By: Nany Rubalcava on 06-04-2017 FLUAV Ag IA Ql (Throat) Negative Normal [facility] Work Phone: FLUAV Ag IA Ql (Throat) Negative Normal [facility]; [facility] Work Phone: Rapid Strep Test, Office ([phone])Ordered By: Nany Rubalcava on 06-04-2017 S. pyogenes Ag EIA Ql (Throat) Negative Normal [facility]; [facility] Work Phone: S. pyogenes Ag IA Ql (Unsp spec) Negative Normal [facility] Work Phone: THROAT CULTURE ([id number])Ordere d By: C[employer]isher [employer] Stuffer on 06-04-2017 Bacteria identified Respiratory culture Nom (Unsp spec) Final report Normal [facility] Work Phone: Comment on above: PATIENT NOT FASTINGP ERFORMED BY: BALJINDER [facility] Xemhup1642 [address] [facility] [id number] Information: SRC:TH Bacteria identified Respiratory culture Nom (Unsp spec) RRF Normal [facility] Work Phone: Comment on above: Routine respiratory yaima PATIENT NOT FASTINGP ERFORMED BY: BALJINDER [facility] Hjiujg1477 [address] [facility] [id number] Information: SRC:TH Written AuthorizationOrdered By: C[employer]isher [employer] Stuffer on 06-04-2017 Written Authorization WAR Normal Com prehensive Internal Medicine Work Phone: Comment on above: Written Authorizatio n Received.Authorization received from SEAN PERLA 31-20-2219Zbelik by Barb Smith PATIENT NOT FASTINGP ERFORMED BY: BALJINDER [facility] Vlpryk8916 [address] [facility] [id number] C-REACTIVE PROTEIN (32160)Or dered By: C[employer]isher [employer] Stuffer on 03-28-2017 CRP High sensitivity method mass conc 66.40 mg/L Abnormal 0.0-3.0 [facility] Work Phone: Comment on above: C-Reactive Protein ( CRP) provides useful information for thediagnosis, therapy and monitoring of inflammatory processesand associated diseases. For the evaluation of Relative Riskfor Cardiovascular Disease, a High Sensitivity CRP (HSCRP)should be ordered. stat; Order Date: Order Info: 0786-1 - CMPOrder Info: [id number] - CRPComments: statComments: [facility] [address] [place], [place], [address] CBC W/Diff, AutomatedOrdered By: Casing Finisher [employer] Stuffer on 03-28-2017 Absolute Lymph 0.39 {X10_3/ul} Abnormal 0.83-4.51 Compr ensive Internal Medicine Work Phone: Absolute Lymph 0.47 {X10_3/ul} Abnormal 0.83-4.51 Compr ensive Internal Medicine Work Phone: Absolute Neut 11.3 {X10_3/uL} Abnormal 2.0-7.7 Compre [facility] Internal Medicine Work Phone: Comment on above: [facility] [address] [place], [place], [phone] Absolute Neut 5.8 {X10_3/uL} Normal 2.0-7.7 Compreh ensive Internal Medicine Work Phone: Comment on above: Order Date: 03/28/17 Order Info: [id number] - CBCDComments: statOrder Info: [id number] - [facility] [address] [place], [place], [address] Basophils/100 WBC (Bld) 0.2 % Normal 0-1 [facility] Work Phone: Comment on above: Order Date: 03/28/17 Order Info: [id number] - CBCDComments: statOrder Info: [id number] [facility] [address] [place], [address] Basophils/100 WBC (Bld) 0.1 % Normal 0-1 [facility] Work Phone: Comment on above: [facility] [address] [place], [address] Basophils/100 WBC Auto (Bld) 0.2 % Normal 0-1 [facility] Work Phone: Basophils/100 WBC Auto (Bld) 0.1 % Normal 0-1 [facility] Work Phone: Eosinophils/100 WBC (Bld) 0.6 % Normal 0-5 [facility] Work Phone: Comment on above: Order Date: 03/28/17 Order Info: [id number] - CBCDComments: statOrder Info: [id number] - [facility] [address] [place], [address] Eosinophils/100 WBC (Bld) 1.4 % Normal 0-5 [facility] Work Phone: Comment on above: [facility] [address] [place], [address] Eosinophils/100 WBC Auto (Bld) 1.4 % Normal 0-5 [facility] Work Phone: Eosinophils/100 WBC Auto (Bld) 0.6 % Normal 0-5 [facility] Work Phone: Erythrocyte distribution width Auto Ratio (RBC) 13.4 % Normal 11.6-14.6 [facility] Work Phone: Erythrocyte distribution width Auto Ratio (RBC) 13.8 % Normal 11.6-14.6 [facility] Work Phone: Erythrocyte distribution width Ratio (RBC) 13.4 % Normal 11.6-14.6 [facility] Work Phone: Comment on above: [facility] [address] [place], [address] Erythrocyte distribution width Ratio (RBC) 13.8 % Normal 11.6-14.6 [facility] Work Phone: Comment on above: Order Date: 03/28/17 Order Info: [id number] - CBCDComments: statOrder Info: [id number] - [facility] [address] [place], [place], [address] Hematocrit Auto Volume Fraction (Bld) 35.6 % Abnormal 37-47 [facility] Work Phone: Hematocrit Auto Volume Fraction (Bld) 43.9 % Normal 37-47 [facility] Work Phone: Hematocrit Volume Fraction (Bld) 43.9 % Normal 37-47 [facility] Work Phone: Comment on above: [facility] [address] [place], [place], [address] Hematocrit Volume Fraction (Bld) 35.6 % Abnormal 37-47 [facility] Work Phone: Comment on above: Order Date: 03/28/17 Order Info: [id number] - CBCDComments: statOrder Info: [id number] [facility] [address] [place], [place], [phone] Hemoglobin mass conc (Bld) 11.3 g/dL Abnormal 12.0-15.0 [facility] Work Phone: Comment on above: Order Date: 03/28/17 Order Info: [id number] - CBCDComments: statOrder Info: [id number] - [facility] [address] [place], [place], [address](045) Hemoglobin mass conc (Bld) 15.0 g/dL Normal 12.0-15.0 [facility] Work Phone: Comment on above: [facility] [address] [place], [place], [address] IM GRAN % 0.200 % Normal 0.0-0.9 [facility] Work Phone: Comment on above: IG% - Immature Granu locytes (promyelocytes, myelocytes andmetamyelocytes) > 1% indicates that a LEFT SHIFT is Present. Order Date: 03/28/17 Order Info: [id number] - CBCDComments: statOrder Info: [id number] - [facility] [address] [place], [address] [facility] [address] [place], [address] Lymphocytes #/vol (Bld) Normal [facility] Work Phone: Comment on above: LYMPHOPENIA NOTED Order Date: 03/28/17 Order Info: [id number] - CBCDComments: statOrder Info: [id number] [facility] [address] [place], [address] Lymphocytes #/vol (Bld) 0.47 {X10_3/ul} Abnormal 0.83-4.51 [facility] Work Phone: Comment on above: Order Date: 03/28/17 Order Info: [id number]- - CBCDComments: statOrder Info: [id number] [facility] [address] [place], [address] Lymphocytes #/vol (Bld) 0.39 {X10_3/ul} Abnormal 0.83-4.51 [facility] Work Phone: Comment on above: [facility] [address] [place], [address] Lymphocytes Auto #/vol (Bld) Normal [facility] Work Phone: Comment on above: LYMPHOPENIA NOTED Lymphocytes/100 WBC (Bld) 7.2 % Abnormal 19-41 [facility] Work Phone: Comment on above: Order Date: 03/28/17 Order Info: [id number]- - CBCDComments: statOrder Info: [id number] [facility] [address] [place], [place], [phone](105) Lymphocytes/100 WBC (Bld) 3.1 % Abnormal 19-41 [facility] Work Phone: Comment on above: [facility] [address] [place], [address](984) Lymphocytes/100 WBC Auto (Bld) 7.2 % Abnormal 19-41 [facility] Work Phone: Lymphocytes/100 WBC Auto (Bld) 3.1 % Abnormal 19- [facility] Work Phone: MCH Auto Entitic mass (RBC) 27.7 pg Normal 27.0-32.0 [facility] Work Phone: MCH Auto Entitic mass (RBC) 26.7 pg Abnormal 27.0-32.0 [facility] Work Phone: MCH Entitic mass (RBC) 26.7 pg Abnormal 27.0-32.0 Co mprehensive [facility] Work Phone: Comment on above: Order Date: 03/28/17 Order Info: [id number] - CBCDComments: statOrder Info: [id number] - [facility] [address] [place], [place], [phone] MCH Entitic mass (RBC) 27.7 pg Normal 27.0-32.0 Co mprehensive [facility] Work Phone: Comment on above: [facility] [address] [place], [place], [phone] MCHC Auto mass conc (RBC) 34.2 {g/gl} Normal 32-36 [facility] Work Phone: MCHC Auto mass conc (RBC) 31.7 {g/gl} Abnormal 32-36 [facility] Work Phone: MCHC mass conc (RBC) 31.7 {g/gl} Abnormal 32-36 [facility] prehensive Internal Medicine Work Phone: Comment on above: Order Date: 03/28/17 Order Info: [id number] - CBCDComments: statOrder Info: [address]-[address] [place] [address] [place], [address] MCHC mass conc (RBC) 34.2 {g/gl} Normal 32-36 Com prehensive Internal Medicine Work Phone: Comment on above: [facility] [address] [place], [address] MCV Auto Entitic volume (RBC) 81.1 fL Normal 81-99 [facility] Work Phone: MCV Auto Entitic volume (RBC) 84.2 fL Normal 81-99 [facility] Work Phone: MCV Entitic volume (RBC) 81.1 fL Normal 81-99 [facility] Work Phone: Comment on above: [facility] [address] [place], [address] MCV Entitic volume (RBC) 84.2 fL Normal 81-99 [facility] Work Phone: Comment on above: Order Date: 03/28/17 Order Info: [id number] - CBCDComments: statOrder Info: [address]-[address] [place] [address] [place], [address] Monocytes/100 WBC Auto (Bld) 5.7 % Normal 0-10 [facility] Work Phone: Comment on above: [facility] [address] [place], [address] Monocytes/100 WBC Auto (Bld) 3.4 % Normal 0-10 [facility] Work Phone: Comment on above: Order Date: 03/28/17 Order Info: [id number] - CBCDComments: statOrder Info: [address]95[address]-[address] [place] [address] [place], [address] Neutrophils/100 WBC (Bld) 89.5 % Abnormal 47-70 [facility] Work Phone: Comment on above: [facility] [address] [place], [address] Neutrophils/100 WBC (Bld) 88.4 % Abnormal 47-70 [facility] Work Phone: Comment on above: Order Date: 03/28/17 Order Info: [id number] - CBCDComments: statOrder Info: [id number] - [facility] [address] [place], [address] Neutrophils/100 WBC Auto (Bld) 89.5 % Abnormal 47-70 [facility] Work Phone: Neutrophils/100 WBC Auto (Bld) 88.4 % Abnormal 47-70 [facility] Work Phone: Platelet mean volume Auto Entitic volume (Bld) 10.7 fL Normal 6.2-12.0 [facility] Work Phone: Platelet mean volume Auto Entitic volume (Bld) 10.8 fL Normal 6.2-12.0 [facility] Work Phone: Platelet mean volume Entitic volume (Bld) 10.8 fL Normal 6.2-12.0 Comprehensi ve Internal Medicine Work Phone: Comment on above: Order Date: 03/28/17 Order Info: [id number] - CBCDComments: statOrder Info: [id number] - [facility] [address] [place], [place], [phone] Platelet mean volume Entitic volume (Bld) 10.7 fL Normal 6.2-12.0 Comprehensi ve Internal Medicine Work Phone: Comment on above: [facility] [address] [place], [place], [phone](162) Platelets #/vol (Bld) 255 10*3/uL Normal 150-450 Co mprehensive Internal Medicine Work Phone: Comment on above: [facility] [address] [place], [place], [phone](807) Platelets #/vol (Bld) 202 10*3/uL Normal 150-450 Co mprehensive [facility] Medicine Work Phone: Comment on above: Order Date: 03/28/17 Order Info: [id number] - CBCDComments: statOrder Info: [id number] - [facility] [address] [place], [address] Platelets Auto #/vol (Bld) 255 10*3/uL Normal 150-450 [facility] Work Phone: Platelets Auto #/vol (Bld) 202 10*3/uL Normal 150-450 [facility] Work Phone: RBC #/vol (Bld) 5.41 {M/mm3} Abnormal 4.2-5.4 Compreh ensive Internal Medicine Work Phone: Comment on above: [facility] [address] [place], [address] RBC #/vol (Bld) 4.23 {M/mm3} Normal 4.2-5.4 Compreh ensive Internal Medicine Work Phone: Comment on above: Order Date: 03/28/17 Order Info: [id number] - CBCDComments: statOrder Info: [id number] - [facility] [address] [place], [address] RBC Auto #/vol (Bld) 4.23 {M/mm3} Normal 4.2-5.4 Co mprehensive [facility] Work Phone: RBC Auto #/vol (Bld) 5.41 {M/mm3} Abnormal 4.2-5.4 Co mprehensive Internal Medicine Work Phone: RDW SD 39.8 fL Normal 35.1-43.9 [facility] Work Phone: Comment on above: [facility] [address] [place], [place], [phone] RDW SD 42.0 fL Normal 35.1-43.9 [facility] Work Phone: Comment on above: Order Date: 03/28/17 Order Info: [id number] - CBCDComments: statOrder Info: [id number] - [facility] [address] [place], [place], [address] WBC #/vol (Bld) 6.6 10*3/uL Normal 4.4-11.0 Comprehe nsive Internal Medicine Work Phone: Comment on above: Order Date: 03/28/17 Order Info: [id number] - CBCDComments: statOrder Info: 22154-[address] [place] [address] [place], [place], [address] WBC #/vol (Bld) 12.7 10*3/uL Abnormal 4.4-11.0 Compreh ensive Internal Medicine Work Phone: Comment on above: [facility] [address] [place], [address] WBC Auto #/vol (Bld) 12.7 10*3/uL Abnormal 4.4-11.0 Co mprehensive Internal Medicine Work Phone: WBC Auto #/vol (Bld) 6.6 10*3/uL Normal 4.4-11.0 [facility] prehensive Internal Medicine Work Phone: Comprehensive Metabolic Prof ilOrdered By: Casing Finisher And Stuffer on 03-28-2017 Comprehensive metabolic 2000 panel 9 U/L Abnormal 15-37 Comprehensi ve Internal Medicine Work Phone: Comment on above: Order Date: 03/28/17 Order Info: [id number] - CMPOrder Info: [id number] - CRPComments: statComments: [facility] [address] [place], [place], [address] Comprehensive metabolic 2000 panel 97.28 ml/min Normal Comprehensi ve Internal Medicine Work Phone: Comment on above: [facility] [address] [place], [place], [address] Comprehensive metabolic 2000 panel 11.8 {RATIO} Normal 10-20 Comprehensi ve Internal Medicine Work Phone: Comment on above: [facility] [address] [place], [phone] Comprehensive metabolic 2000 panel 6.8 mg/dL Abnormal 8.5-10.1 Comprehensi ve Internal Medicine Work Phone: Comment on above: Order Date: 03/28/17 Order Info: [id number] - CMPOrder Info: [id number] - CRPComments: statComments: [facility] [address] [place], [place], [address] Comprehensive metabolic 2000 panel 1.1 {RATIO} Normal 0.9-2.4 Comprehensi ve Internal Medicine Work Phone: Comment on above: Order Date: 03/28/17 Order Info: 0786-1 - CMPOrder Info: [id number] - CRPComments: statComments: [facility] [address] [place], [place], [address] Comprehensive metabolic 2000 panel 2.6 g/dL Normal 2.2-4.2 Comprehensi ve Internal Medicine Work Phone: Comment on above: Order Date: 03/28/17 Order Info: 0786-1 - CMPOrder Info: [id number] 7 - CRPComments: statComments: [facility] [address] [place], [place], [address] Comprehensive metabolic 2000 panel 2.8 g/dL Abnormal 3.4-5.0 Comprehensi ve Internal Medicine Work Phone: Comment on above: Please note revised Albumin AND Globulin reference rangeeffective 2017. Order Date: 03/28/17 Order Info: 0786-1 - CMPOrder Info: [id number] - CRPComments: statComments: [facility] [address] [place], [place], [address] Comprehensive metabolic 2000 panel 11 1 Normal 5-15 Comprehensi ve Internal Medicine Work Phone: Comment on above: Order Date: 03/28/17 Order Info: 0786-1 - CMPOrder Info: [id number] - CRPComments: statComments: [facility] [address] [place], [place], [address] Comprehensive metabolic 2000 panel 5.4 g/dL Abnormal 6.4-8.2 Comprehensi ve Internal Medicine Work Phone: Comment on above: Order Date: 03/28/17 Order Info: 0786-1 - CMPOrder Info: [id number] - CRPComments: statComments: [facility] [address] [place], [place], [address] Comprehensive metabolic 2000 panel 13.1 {RATIO} Normal 10-20 Comprehensi ve Internal Medicine Work Phone: Comment on above: Order Date: 03/28/17 Order Info: 0786-1 - CMPOrder Info: [id number] - CRPComments: statComments: [facility] [address] [place], [address] Comprehensive metabolic 2000 panel 21.0 mmol/L Normal 21.0-32.0 Comprehensi ve Internal Medicine Work Phone: Comment on above: Order Date: 03/28/17 Order Info: 0786-1 - CMPOrder Info: [id number] - CRPComments: statComments: [facility] [address] [place], [place], [address] Comprehensive metabolic 2000 panel 106 mmol/L Normal 98-107 Comprehensi ve Internal Medicine Work Phone: Comment on above: Order Date: 03/28/17 Order Info: 0786-1 - CMPOrder Info: [id number] - CRPComments: statComments: [facility] [address] [place], [place], [address] Comprehensive metabolic 2000 panel 4.0 mmol/L Normal 3.5-5.1 Comprehensi ve Internal Medicine Work Phone: Comment on above: Order Date: 03/28/17 Order Info: 0786-1 - CMPOrder Info: [id number] - CRPComments: statComments: [facility] [address] [place], [place], [address] Comprehensive metabolic 2000 panel 120 mL/min Normal Comprehensi ve Internal Medicine Work Phone: Comment on above: GFR Calc Order Date: 03/28/17 Order Info: 0786-1 - CMPOrder Info: [id number] - CRPComments: statComments: [facility] [address] [place], [place], [id number] Comprehensive metabolic 2000 panel 138 mmol/L Normal 136-145 Comprehensi ve Internal Medicine Work Phone: Comment on above: Order Date: 03/28/17 Order Info: 0786-1 - CMPOrder Info: [id number] - CRPComments: statComments: [facility] [address] [place], [place], [id number] Comprehensive metabolic 2000 panel 99 mL/min Normal Comprehensi ve Internal Medicine Work Phone: Comment on above: Non- GFR Calc Order Date: 03/28/17 Order Info: 0786-1 - CMPOrder Info: [id number] - CRPComments: statComments: [facility] [address] [place], [place], [address] Comprehensive metabolic 2000 panel 0.30 mg/dL Normal 0.20-1.00 Comprehensi ve Internal Medicine Work Phone: Comment on above: Order Date: 03/28/17 Order Info: 0786-1 - CMPOrder Info: [id number]- [id number] - CRPComments: statComments: [facility] [address] [place], [place], [address] Comprehensive metabolic 2000 panel 0.77 mg/dL Normal 0.55-1.02 Comprehensi ve Internal Medicine Work Phone: Comment on above: The validity of the calculated GFR AND GFRAA in patients over70 years has not been determined. Clinical correlation isessential. Order Date: 03/28/17 Order Info: 0786-1 - CMPOrder Info: [id number] - CRPComments: statComments: [facility] [address] [place], [place], [address] Comprehensive metabolic 2000 panel 10 mg/dL Normal 7-18 Comprehensi ve Internal Medicine Work Phone: Comment on above: Order Date: 03/28/17 Order Info: 0786-1 - CMPOrder Info: [id number] - CRPComments: statComments: [facility] [address] [place], [place], [address] Comprehensive metabolic 2000 panel 94 mg/dL Normal 70-110 Comprehensi ve Internal Medicine Work Phone: Comment on above: Order Date: 03/28/17 Order Info: 0786-1 - CMPOrder Info: [id number] - CRPComments: statComments: [facility] [address] [place], [place], [address] Comprehensive metabolic 2000 panel 17 U/L Normal 12-78 Comprehensi ve Internal Medicine Work Phone: Comment on above: [facility] [address] [place], [place], [id number] Comprehensive metabolic 2000 panel 13 U/L Normal 12-78 Comprehensi ve Internal Medicine Work Phone: Comment on above: Order Date: 03/28/17 Order Info: 0786-1 - CMPOrder Info: [id number] - CRPComments: statComments: [facility] [address] [place], [place], [address] Comprehensive metabolic 2000 panel 10 1 Normal 5-15 Comprehensi ve Internal Medicine Work Phone: Comment on above: [facility] [address] [place], [place], [address] Comprehensive metabolic 2000 panel 23.0 mmol/L Normal 21.0-32.0 Comprehensi ve Internal Medicine Work Phone: Comment on above: [facility] [address] [place], [place], [id number] Comprehensive metabolic 2000 panel 107 mmol/L Normal 98-107 Comprehensi ve Internal Medicine Work Phone: Comment on above: [facility] [address] [place], [place], [address] Comprehensive metabolic 2000 panel 4.1 mmol/L Normal 3.5-5.1 Comprehensi ve Internal Medicine Work Phone: Comment on above: [facility] [address] [place], [place], [address] Comprehensive metabolic 2000 panel 140 mmol/L Normal 136-145 Comprehensi ve Internal Medicine Work Phone: Comment on above: [facility] [address] [place], [place], [address] Comprehensive metabolic 2000 panel 0.60 mg/dL Normal 0.20-1.00 Comprehensi ve Internal Medicine Work Phone: Comment on above: [facility] [address] [place], [place], [address] Comprehensive metabolic 2000 panel 95 mL/min Normal Comprehensi ve Internal Medicine Work Phone: Comment on above: [facility] [address] [place], [place], [address] Comprehensive metabolic 2000 panel 156 mg/dL Abnormal 70-110 Comprehensi ve Internal Medicine Work Phone: Comment on above: Fasting Glucose resu lt greater than or equal to 126 mg/dLsuggests DIABETES MELLITUS per A.D.A. criteria. [facility] [address] [place], [place], [address] Comprehensive metabolic 2000 panel 11 mg/dL Normal 7-18 Comprehensi ve Internal Medicine Work Phone: Comment on above: [facility] [address] [place], [place], [address] Comprehensive metabolic 2000 panel 0.94 mg/dL Normal 0.55-1.02 Comprehensi ve Internal Medicine Work Phone: Comment on above: The validity of the calculated GFR AND GFRAA in patients over70 years has not been determined. Clinical correlation isessential. [facility] [address] [place], [place], [address] Comprehensive metabolic 2000 panel 117 U/L Normal 45-117 Comprehensi ve Internal Medicine Work Phone: Comment on above: [facility] [address] [place], [place], [address] Comprehensive metabolic 2000 panel 8 U/L Abnormal 15-37 Comprehensi ve Internal Medicine Work Phone: Comment on above: [facility] [address] [place], [place], [address] Comprehensive metabolic 2000 panel 8.9 mg/dL Normal 8.5-10.1 Comprehensi ve Internal Medicine Work Phone: Comment on above: [facility] [address] [place], [place], [address] Comprehensive metabolic 2000 panel 1.0 {RATIO} Normal 0.9-2.4 Comprehensi ve Internal Medicine Work Phone: Comment on above: [facility] [address] [place], [place], [address] Comprehensive metabolic 2000 panel 3.9 g/dL Normal 2.2-4.2 Comprehensi ve Internal Medicine Work Phone: Comment on above: Please note revised Albumin AND Globulin reference rangeeffective 2017. [facility] [address] [place], [place], [address] Comprehensive metabolic 2000 panel 74 U/L Normal 45-117 Comprehensi ve Internal Medicine Work Phone: Comment on above: Order Date: 03/28/17 Order Info: 0786-1 - CMPOrder Info: [id number] - CRPComments: statComments: [facility] [address] [place], [place], [address] Comprehensive metabolic 2000 panel 79 mL/min Normal Comprehensi ve Internal Medicine Work Phone: Comment on above: Non- GFR Calc [facility] [address] [place], [place], [address] Comprehensive metabolic 2000 panel 7.8 g/dL Normal 6.4-8.2 Comprehensi ve Internal Medicine Work Phone: Comment on above: [facility] [address] [place], [place], [address] Erythrocyte Sed RateOrdered By: Casing Finisher And Stuffer on 03-28-2017 SED RATE 3 mm/h Normal 0-20 [facility] Work Phone: Erythrocyte Sed Rate 3 mm/h Normal 0-20 Comp rehensive Internal Medicine Work Phone: Comment on above: Order Date: 03/28/17 Order Info: [id number] - CBCDComments: statOrder Info: [id number] - [facility] [address] [place], [place], [address] Influenza A&B Viral Culture (78330)Ordered By: Casing Finisher And Stuffer on 03-28-2017 FLUV identified Org specific cx Nom (Unsp spec) FLUABN Normal [facility] Work Phone: Comment on above: Negative:No Influenz a A or B detected. PATIENT NOT FASTINGP ERFORMED BY: [facility]CoR[facility], Old BridgeGdjnoh4499 [facility] [id number] Information: SRC:NL LipaseOrdered By: System Man ager on 03-28-2017 Lipase enzyme act/vol 102 U/L Normal 73-393 Com prehensive Internal Medicine Work Phone: Comment on above: [facility] [address] [place], [place], [address] ,UrineOrdered By: Troy hortatem Wheat Grower on 03-28-2017 HCG.beta subunit ( test) Ql (U) Negative Normal [facility] Work Phone: Comment on above: Very dilute urine sp ecimens, as indicated by a low specificgravity, may not contain b2b outside sales representative levels of hCG.If is still suspected, a first morning urinespecimen should be collected 48 hours later and tested. Order Date: 03/28/17 [facility] [address] [place], [place], [address] HCGUQUAL Negative Normal [facility] Work Phone: Comment on above: Very dilute urine sp ecimens, as indicated by a low specificgravity, may not contain b2b outside sales representative levels of hCG.If is still suspected, a first morning urinespecimen should be collected 48 hours later and tested. Rapid Flu (46166 x 2)Ordered By: Maria Teresa Marks on 03-28-2017 FLUAV Ag IA Ql (Throat) Negative Normal [facility] Work Phone: FLUAV Ag IA Ql (Throat) Negative Normal [facility]; [facility] Work Phone: URINE ANNIE CULTURE-LUÍS COL C OUNT ([id number])Ordered By: Casing Finisher And Stuffer on 03-28-2017 Bacteria identified Cx Nom (U) MUG Normal [facility] Work Phone: Comment on above: Mixed urogenital kymberly ra10,000-25,000 colony forming units per mL PATIENT NOT FASTINGP ERFORMED BY: BALJINDER Viridis Learninglilliam TobinChzkhs5730 [facility] [id number] Information: SRC:UC Bacteria identified Cx Nom (U) Final report Normal [facility] Work Phone: Comment on above: PATIENT NOT FASTINGP ERFORMED BY: BALJINDER LabColilliam TobinIzoaeo1891 Osito CoronadoFormerly [facility] [id number] Information: SRC:WARREN Urinalysis, CompleteOrdered By: Casing Finisher And Stuffer on 03-28-2017 Protein mass conc (U) 30 mg/dL Abnormal Com prehensive Internal Medicine Work Phone: Comment on above: Order Date: 03/28/17 How was Urine Obtained? [facility] [address] [place], [id number] RBC #/vol (U) 0 SEEN Normal 0-5 Comprehensi ve Internal Medicine Work Phone: Comment on above: Order Date: 03/28/17 How was Urine Obtained? [facility] [address] [place], [id number] RBC Test strip #/vol (U) 0 SEEN Normal 0-5 [facility] Work Phone: Urinalysis complete panel - Urine 0 SEEN Normal [facility] Work Phone: Comment on above: Order Date: 03/28/17 How was Urine Obtained? [facility] [address] [place], [id number] Urinalysis complete panel - Urine Negative Normal [facility] Work Phone: Comment on above: Order Date: 03/28/17 How was Urine Obtained? [facility] [address] [place], [id number] Urinalysis complete panel - Urine 100 /ul Abnormal [facility] Work Phone: Comment on above: Order Date: 03/28/17 How was Urine Obtained? [facility] [address] [place], [id number] Urinalysis complete panel - Urine 0-5 SEEN Normal 0-5 [facility] Work Phone: Comment on above: Order Date: 03/28/17 How was Urine Obtained? [facility] [address] [place], [place], [address] Urinalysis complete panel - Urine > 100 SEEN Normal 5-10 [facility] Work Phone: Comment on above: Order Date: 03/28/17 How was Urine Obtained? [facility] [address] [place], [address] Urinalysis complete panel - Urine Yellow Normal [facility] Work Phone: Comment on above: Order Date: 03/28/17 How was Urine Obtained? [facility] [address] [place], [address] Urinalysis complete panel - Urine Sl. Cloudy Normal [facility] Work Phone: Comment on above: Order Date: 03/28/17 How was Urine Obtained? [facility] [address] [place], [address] Urinalysis complete panel - Urine Normal Normal [facility] Work Phone: Comment on above: Order Date: 03/28/17 How was Urine Obtained? [facility] [address] [place], [address] Urinalysis complete panel - Urine 1 mg/dL Abnormal [facility] Work Phone: Comment on above: COLOR OF URINE MAY A FFECT DIPSTICK RESULTS. Order Date: 03/28/17 How was Urine Obtained? [facility] [address] [place], [address] Urinalysis complete panel - Urine 50 mg/dL Abnormal [facility] Work Phone: Comment on above: Order Date: 03/28/17 How was Urine Obtained? [facility] [address] [place], [address] Urinalysis complete panel - Urine 1.025 1 Normal 1.002-1.030 [facility] Work Phone: Comment on above: Order Date: 03/28/17 How was Urine Obtained? [facility] [address] [place], [id number] Urinalysis complete panel - Urine 5.0 1 Normal 5.0 - 8.0 [facility] Work Phone: Comment on above: Order Date: 03/28/17 How was Urine Obtained? [facility] [address] [place], [address]751 Urinalysis complete panel - Urine 30 mg/dL Abnormal [facility] Work Phone: Comment on above: Order Date: 03/28/17 How was Urine Obtained? [facility] [address] [place], [id number] Urinalysis, Office ([id number])Or dered By: Maria Teresa Marks on 03-28-2017 Bilirubin Ql (U) Negative Normal Comprehe nsive Internal Medicine Work Phone: Bilirubin Ql (U) Negative Normal Comprehe nsive Internal Medicine; [facility] Work Phone: Glucose Test strip (U) [Mass/Vol] Negative Normal [facility]; [facility] Work Phone: Glucose Test strip mass conc (U) Negative Normal [facility] Work Phone: Hemoglobin Ql (U) Hemolyzed Trace Normal Co mprehensive Internal Medicine Work Phone: Hemoglobin Test strip Ql (U) Hemolyzed Trace Normal [facility] Work Phone: Ketones Ql (U) Negative Normal Comprehens stacy Internal Medicine Work Phone: Ketones Ql (U) Negative Normal Comprehens stacy Internal Medicine; [facility] Work Phone: Leukocyte esterase Test strip Ql (U) Negative Normal [facility] Work Phone: Leukocyte esterase Test strip Ql (U) Negative Normal [facility]; [facility] Work Phone: Nitrite Ql (U) Negative Normal Comprehens stacy Internal Medicine Work Phone: Nitrite Ql (U) Negative Normal Comprehens stacy Internal Medicine; [facility] Work Phone: Nitrite Test strip Ql (U) Negative Normal [facility] Work Phone: pH (U) 6 [pH] Abnormal [facility] Work Phone: pH Test strip (U) 6 [pH] Abnormal Compreh ensive Internal Medicine Work Phone: Protein Ql (U) 30 mg/dL Normal Comprehens stacy Internal Medicine Work Phone: Protein Test strip Ql (U) 30 mg/dL Normal [facility] Work Phone: Specific gravity Relative Density (U) 1.030 1 Abnormal Comprehensi ve Internal Medicine Work Phone: Urobilinogen mass/time (24H U) Normal Normal [facility] Work Phone: ANNIE CULTURE-OTHER ([id number])Ord ered By: Casing Finisher And Stuffer on 03-19-2017 Bacteria identified Respiratory culture Nom (Unsp spec) RRF Normal [facility] Work Phone: Comment on above: Routine respiratory yaima PATIENT NOT FASTINGP ERFORMED BY: BALJINDER Since1910.comox MobileWeaverFormerly [facility] [id number] Information: SRC:TH Bacteria identified Respiratory culture Nom (Unsp spec) Final report Normal [facility] Work Phone: Comment on above: PATIENT NOT FASTINGP ERFORMED BY: [employer] [facility] [id number] Information: SRC:TH CBC W/AUTO DIFF WBC (86401)O rdered By: Casing Finisher And Stuffer on 03-19-2017 Basophils #/vol (Bld) 0.0 {x10E3/uL} Normal 0.0-0.2 [facility] Work Phone: Comment on above: PATIENT NOT FASTINGP ERFORMED BY: GetApp[employer] MobileWeaverFormerly [facility] [id number] Basophils (Bld) [#/Vol] 0.0 10*3/uL Normal 0.0-0.2 [facility]; [facility] Work Phone: Comment on above: PATIENT NOT FASTINGP ERFORMED BY: BALJINDER LabYogesh Nccewh6995 [facility] [id number] Basophils Auto #/vol (Bld) 0.0 {x10E3/uL} Normal 0.0-0.2 [facility] Work Phone: Basophils/100 WBC (Bld) 0 % Normal [facility] Work Phone: Comment on above: PATIENT NOT FASTINGP ERFORMED BY: LabRegina Ville [id number] [facility] [id number] Basophils/100 WBC Auto (Bld) 0 % Normal [facility] Work Phone: Eosinophils #/vol (Bld) 0.3 {x10E3/uL} Normal 0.0-0.4 [facility] Work Phone: Comment on above: PATIENT NOT FASTINGP ERFORMED BY: LabRegina Ville [id number] [facility] [id number] Eosinophils (Bld) [#/Vol] 0.3 10*3/uL Normal 0.0-0.4 [facility]; [facility] Work Phone: Comment on above: PATIENT NOT FASTINGP ERFORMED BY: [address] [id number] Eosinophils Auto #/vol (Bld) 0.3 {x10E3/uL} Normal 0.0-0.4 [facility] Work Phone: Eosinophils/100 WBC (Bld) 4 % Normal [facility] Work Phone: Comment on above: PATIENT NOT FASTINGP ERFORMED BY: LabRegina [place] [id number] [facility] [id number] Eosinophils/100 WBC Auto (Bld) 4 % Normal [facility] Work Phone: Erythrocyte distribution width Auto Ratio (RBC) 14.4 % Normal 12.3-15.4 [facility] Work Phone: Erythrocyte distribution width Ratio (RBC) 14.4 % Normal 12.3-15.4 [facility] Work Phone: Comment on above: PATIENT NOT FASTINGP ERFORMED BY: BALJINDER Won Tobin6370 [facility] [id number] Hematocrit Auto Volume Fraction (Bld) 39.8 % Normal 34.0-46.6 [facility] Work Phone: Hematocrit Volume Fraction (Bld) 39.8 % Normal 34.0-46.6 [facility] Work Phone: Comment on above: PATIENT NOT FASTINGP ERFORMED BY: BALJINDER BeanRyne SpragueOhifae1386 [facility] [id number] Hemoglobin mass conc (Bld) 12.3 g/dL Normal 11.1-15.9 [facility] Work Phone: Comment on above: Effective March 24, 2017 the reference interval for Hemoglobin MALES only will be changing to: Males 13-15 years: 12.6 - 17.7 Males >15 years: 13.0 - 17.7 PATIENT NOT FASTINGP ERFORMED BY: BALJINDER BeanRyne Vfshwk9487 [facility] [id number] Immature granulocytes #/vol (Bld) 0.0 {x10E3/uL} Normal 0.0-0.1 [facility] Work Phone: Comment on above: PATIENT NOT FASTINGP ERFORMED BY: BALJINDER [employer] Rrjcxa5004 [facility] [id number] Immature granulocytes (Bld) [#/Vol] 0.0 10*3/uL Normal 0.0-0.1 [facility]; [facility] Work Phone: Comment on above: PATIENT NOT FASTINGP ERFORMED BY: BALJINDER BeanColilliam Arktnl5109 [facility] [id number] Immature granulocytes/100 WBC (Bld) 0 % Normal [facility] Work Phone: Comment on above: PATIENT NOT FASTINGP ERFORMED BY: BALJINDER [facility]6370 [facility] [id number] Lymphocytes #/vol (Bld) 2.2 {x10E3/uL} Normal 0.7-3.1 [facility] Work Phone: Comment on above: PATIENT NOT FASTINGP ERFORMED BY: [facility]6370 [facility] [id number] Lymphocytes (Bld) [#/Vol] 2.2 10*3/uL Normal 0.7-3.1 [facility]; [facility] Work Phone: Comment on above: PATIENT NOT FASTINGP ERFORMED BY: [place] [id number] [facility] [id number] Lymphocytes Auto #/vol (Bld) 2.2 {x10E3/uL} Normal 0.7-3.1 [facility] Work Phone: Lymphocytes/100 WBC (Bld) 26 % Normal [facility] Work Phone: Comment on above: PATIENT NOT FASTINGP ERFORMED BY: [facility]6370 [facility] [id number] Lymphocytes/100 WBC Auto (Bld) 26 % Normal [facility] Work Phone: MCH Auto Entitic mass (RBC) 25.8 pg Abnormal 26.6-33.0 [facility] Work Phone: MCH Entitic mass (RBC) 25.8 pg Abnormal 26.6-33.0 [facility] Internal Medicine Work Phone: Comment on above: PATIENT NOT FASTINGP ERFORMED BY: [facility]6370 [facility] [id number] MCHC Auto mass conc (RBC) 30.9 g/dL Abnormal 31.5-35.7 [facility] Work Phone: MCHC mass conc (RBC) 30.9 g/dL Abnormal 31.5-35.7 [facility] Internal Medicine Work Phone: Comment on above: PATIENT NOT FASTINGP ERFORMED BY: [place] [id number] [facility] [id number] MCV Auto Entitic volume (RBC) 83 fL Normal 79-97 [facility] Work Phone: MCV Entitic volume (RBC) 83 fL Normal 79-97 [facility] Work Phone: Comment on above: PATIENT NOT FASTINGP ERFORMED BY: BALJINDER [facility]6370 [facility] [id number] Monocytes #/vol (Bld) 0.8 {x10E3/uL} Normal 0.1-0.9 [facility] Work Phone: Comment on above: PATIENT NOT FASTINGP ERFORMED BY: BALJINDER [place] [id number] [facility] [id number] Monocytes (Bld) [#/Vol] 0.8 10*3/uL Normal 0.1-0.9 [facility]; [facility] Work Phone: Comment on above: PATIENT NOT FASTINGP ERFORMED BY: BALJINDER [facility]6370 [facility] [id number] Monocytes Auto #/vol (Bld) 0.8 {x10E3/uL} Normal 0.1-0.9 [facility] Work Phone: Monocytes/100 WBC (Bld) 9 % Normal [facility] Work Phone: Comment on above: PATIENT NOT FASTINGP ERFORMED BY: [facility]6370 [facility] [id number] Monocytes/100 WBC Auto (Bld) 9 % Normal [facility] Work Phone: Neutrophils #/vol (Bld) 5.2 {x10E3/uL} Normal 1.4-7.0 [facility] Work Phone: Comment on above: PATIENT NOT FASTINGP ERFORMED BY: [facility]6370 [facility] [id number] Neutrophils (Bld) [#/Vol] 5.2 10*3/uL Normal 1.4-7.0 [facility]; [facility] Work Phone: Comment on above: PATIENT NOT FASTINGP ERFORMED BY: CB [facility] Hpifzp7504 [address] RoadDublin [place] [id number] Neutrophils Auto #/vol (Bld) 5.2 {x10E3/uL} Normal 1.4-7.0 [facility] Work Phone: Neutrophils/100 WBC (Bld) 61 % Normal [facility] Work Phone: Comment on above: PATIENT NOT FASTINGP ERFORMED BY: CB [facility] Tvvwsg4578 [address] RoadDublin [place] [id number] Neutrophils/100 WBC Auto (Bld) 61 % Normal [facility] Work Phone: Platelets #/vol (Bld) 272 {x10E3/uL} Normal 150-379 [facility] Work Phone: Comment on above: PATIENT NOT FASTINGP ERFORMED BY: CB [facility] Xtakdu5826 [address] RoadDublin [place] [id number] Platelets (Bld) [#/Vol] 272 10*3/uL Normal 150-379 [facility]; [facility] Work Phone: Comment on above: PATIENT NOT FASTINGP ERFORMED BY: CB [facility] Jciyxk1851 [address] RoadDublin [place] [id number] Platelets Auto #/vol (Bld) 272 {x10E3/uL} Normal 150-379 [facility] Work Phone: RBC #/vol (Bld) 4.77 {x10E6/uL} Normal 3.77-5.28 [facility] Internal Medicine Work Phone: Comment on above: PATIENT NOT FASTINGP ERFORMED BY: CB [facility] Gxutbn4123 [address] RoadDublin [place] [id number] RBC (Bld) [#/Vol] 4.77 10*6/uL Normal 3.77-5.28 [facility]; [facility] Work Phone: Comment on above: PATIENT NOT FASTINGP ERFORMED BY: CB [facility] Vldtud8848 [address] RoadDublin [place] [id number] RBC Auto #/vol (Bld) 4.77 {x10E6/uL} Normal 3.77-5.28 [facility] Work Phone: WBC #/vol (Bld) 8.5 {x10E3/uL} Normal 3.4-10.8 Compr ensive Internal Medicine Work Phone: Comment on above: PATIENT NOT FASTINGP ERFORMED BY: BALJINDER LabRegina Ville [id number] [facility] [id number] WBC (Bld) [#/Vol] 8.5 10*3/uL Normal 3.4-10.8 Compre [facility] [facility] Internal Medicine; [facility] Work Phone: Comment on above: PATIENT NOT FASTINGP ERFORMED BY: BALJINDER [facility] Gqjlgo3234 [facility] [id number] WBC Auto #/vol (Bld) 8.5 {x10E3/uL} Normal 3.4-10.8 [facility] Work Phone: EBV Panel (60075)Ordered By: Casing Finisher And Stuffer on 03-19-2017 EBV capsid IgG IA Qn (S) 100.0 U/mL Abnormal 0.0-17.9 [facility] Work Phone: Comment on above: Negative <18.0 Equiv ocal 18.0 - 21.9 Positive >21.9 PATIENT NOT FASTINGP ERFORMED BY: [facility]6370 [facility] [id number] EBV capsid IgM IA Qn (S) 53.4 U/mL Abnormal 0.0-35.9 [facility] Work Phone: Comment on above: Negative <36.0 Equiv ocal 36.0 - 43.9 Positive >43.9 PATIENT NOT FASTINGP ERFORMED BY: LabRegina [place] 5572870 [facility] [id number] EBV early IgG Qn (S) <9.0 Normal 0.0-8.9 [facility] Internal Medicine Work Phone: Comment on above: Negative < 9.0 Equiv ocal 9.0 - 10.9 Positive >10.9 PATIENT NOT FASTINGP ERFORMED BY: [employer] Ngngsv8588 [facility] [id number] EBV nuclear IgG IA Qn (S) <18.0 Normal 0.0-17.9 [facility] Work Phone: Comment on above: Negative <18.0 Equiv ocal 18.0 - 21.9 Positive >21.9 PATIENT NOT FASTINGP ERFORMED BY: Garpun70 [facility] [id number] Service comment Interp (Unsp spec) SPRCS Normal [facility] Work Phone: Comment on above: EBV Interpretation C medellin . Interpretation EBV-IgM EA(D)-IgG VCA-IgG EBNA-IgG . EBV Seronegative - - - - Early Phase + - - - Acute Primary + +or- + - Infection Convalescence/Past - +or- + + Infection Reactivated +or- + + + Infection + Antibody Present - Antibody Absent PATIENT NOT FASTINGP ERFORMED BY: JayCut6370 [facility] [id number] Rapid Strep Test, Office (21 210)Ordered By: Gay Cabezas on 03-19-2017 S. pyogenes Ag EIA Ql (Throat) Negative Normal [facility]; [facility] Work Phone: S. pyogenes Ag IA Ql (Unsp spec) Negative Normal [facility] Work Phone: CORTISOL SERUMOrdered By: Sy stem Wheat Grower on 12-28-2016 Cortisol mass conc 12.70 ug/dL Normal 3.09-22.40 Compr [facility] Internal Medicine Work Phone: Comment on above: Adult (AM) 4.30 - 22 .40 ug/dL Adult (PM) 3.09 - 16.66 ug/dL [facility] Komcwvrhgl67[address] [place], [address] DHEA SulfateOrdered By: Syst em Wheat Grower on 12-28-2016 Dehydroepiandrosterone sulfate (DHEA-S) mass conc 238.6 ug/dL Normal 110.0-431.7 [facility] Work Phone: Comment on above: Performed at: CB [facility] [address] [id number] Director: Alvin Porter PhD, Phone: [phone] CD 19Has Patient had Radioactive Injection for X-ray?: [facility] (refer to report for specific site)refer to report for address and phone number EstradiolOrdered By: Casing Finisher And Stuffer on 12-28-2016 Estradiol (E2) mass conc 139.5 pg/mL Normal [facility] Work Phone: Comment on above: NORMAL REFERENCE RAN GES FEMALE FOLLICULAR 21.4 - 164.8 pg/mL MID-CYCLE PEAK 49.9 - 367.2 pg/mL LUTEAL 40.2 - 259.0 pg/mL POST-MENOPAUSAL ON MHT <11.0 - 462.1 pg/mL NOT ON MHT <11.0 - 58.3 pg/mL MALE <11.0 - 52.5 pg/mLNOTE:SIEMENS HAS CONFIRMED THE DRUG FULVETRANT (FASLODEX) MAYCAUSE FALSELY ELEVATED ESTRADIOL RESULTS WHEN USING THISTEST METHOD. IF PATIENT IS TAKING FULVESTRANT AN ALTERNATIVEMETHOD SHOULD BE USED TO DETERMINE ESTRADIOL CONCENTRATION. [address] Fgpisrlspb7906 [place], [address] Progesterone LevelOrdered By : Casing Finisher And Stuffer on 12-28-2016 Progesterone mass conc 5.53 ng/mL Normal Co [facility] Internal Medicine Work Phone: Comment on above: Progesterone Referen ce Table: UNITS Female: Follicular 0.15 - 1.40 ng/mL Luteal 3.34 - 25.56 ng/mL Mid-luteal 4.44 - 28.03 ng/mL Postmenopausal 0.0 - 0.73 ng/mL : 1st Trimester 11.22 - 90.00 ng/mL 2nd Trimester 25.55 - 89.40 ng/mL 3rd Trimester 48.40 -422.50 ng/mL [address] Kexsdzdrdi5349 [place], [address] Testosterone, Serum TotalOrd ered By: Casing Finisher And Stuffer on 12-28-2016 Testosterone mass conc 58 ng/dL Normal 14-76 Co [facility] Internal [facility] Work Phone: Comment on above: [facility] Hkodbdmufr2818 [place], [address] CBC W/AUTO DIFF WBC (76732)O rdered By: Casing Finisher And Stuffer on 11-25-2016 Basophils #/vol (Bld) 0.0 {x10E3/uL} Normal 0.0-0.2 [facility] Work Phone: Comment on above: PATIENT WAS FASTINGP ERFORMED BY: inZair[address] [place] [address] [id number] BY: [employer] [address] [id number] Information: SRC:UC Basophils (Bld) [#/Vol] 0.0 10*3/uL Normal 0.0-0.2 [facility]; [facility] Work Phone: Comment on above: PATIENT WAS FASTINGP ERFORMED BY: [employer] [id number] BY: [employer] [id number] Information: SRC:UC Basophils Auto #/vol (Bld) 0.0 {x10E3/uL} Normal 0.0-0.2 [facility] Work Phone: Basophils/100 WBC (Bld) 0 % Normal [facility] Work Phone: Comment on above: PATIENT WAS FASTINGP ERFORMED BY: [employer] [address] [id number] BY: [employer] [id number] Information: SRC:UC Basophils/100 WBC Auto (Bld) 0 % Normal [facility] Work Phone: Eosinophils #/vol (Bld) 0.4 {x10E3/uL} Normal 0.0-0.4 [facility] Work Phone: Comment on above: PATIENT WAS FASTINGP ERFORMED BY: BALJINDER [facility] Cnemor8121 [facility] [id number] BY: LabSimulmedia[address] [id number] Information: SRC:UC Eosinophils (Bld) [#/Vol] 0.4 10*3/uL Normal 0.0-0.4 [facility]; [facility] Work Phone: Comment on above: PATIENT WAS FASTINGP ERFORMED BY: CB [facility] Spzqmg1453 [address] [facility] [id number] BY: [address] [id number] Information: SRC:UC Eosinophils Auto #/vol (Bld) 0.4 {x10E3/uL} Normal 0.0-0.4 [facility] Work Phone: Eosinophils/100 WBC (Bld) 5 % Normal [facility] Work Phone: Comment on above: PATIENT WAS FASTINGP ERFORMED BY: Peek@U [facility] Nffzlv5571 [facility] [id number] BY: [employer] [id number] Information: SRC:UC Eosinophils/100 WBC Auto (Bld) 5 % Normal [facility] Work Phone: Erythrocyte distribution width Auto Ratio (RBC) 13.4 % Normal 12.3-15.4 [facility] Work Phone: Erythrocyte distribution width Ratio (RBC) 13.4 % Normal 12.3-15.4 [facility] Work Phone: Comment on above: PATIENT WAS FASTINGP ERFORMED BY: Peek@U [facility] Obrugp6368 [facility] [id number] BY: [address] [id number] Information: SRC:UC Hematocrit Auto Volume Fraction (Bld) 40.5 % Normal 34.0-46.6 [facility] Work Phone: Hematocrit Volume Fraction (Bld) 40.5 % Normal 34.0-46.6 [facility] Work Phone: Comment on above: PATIENT WAS FASTINGP ERFORMED BY: BALJINDER [facility] Jsotjq2371 Mcne[address] RoadDublin [place] [id number] BY: [address] [id number] Information: SRC:UC Hemoglobin mass conc (Bld) 13.0 g/dL Normal 11.1-15.9 [facility] Work Phone: Comment on above: PATIENT WAS FASTINGP ERFORMED BY: BALJINDER [facility] Hkfdle4112 Mcne[address] RoadDuin [place] [id number] BY: LabCo[address] [id number] Information: SRC:UC Immature granulocytes #/vol (Bld) 0.0 {x10E3/uL} Normal 0.0-0.1 [facility] Work Phone: Comment on above: PATIENT WAS FASTINGP ERFORMED BY: CB [facility] Hlaolu2397 [address] RoadAtrium Health Harrisburgin [place] [id number] BY: [address] [id number] Information: SRC:UC Immature granulocytes (Bld) [#/Vol] 0.0 10*3/uL Normal 0.0-0.1 [facility]; [facility] Work Phone: Comment on above: PATIENT WAS FASTINGP ERFORMED BY: CB [facility] Gvvjsf3509 Mcneill RoadDuin [place] [id number] BY: [address] [id number] Information: SRC:UC Immature granulocytes/100 WBC (Bld) 0 % Normal [facility] Work Phone: Comment on above: PATIENT WAS FASTINGP ERFORMED BY: CB [facility] Dsfbpj9898 [address]ne[address] RoadDuin [place] [id number] BY: BN [address] [id number] Information: SRC:UC Lymphocytes #/vol (Bld) 2.5 {x10E3/uL} Normal 0.7-3.1 [facility] Work Phone: Comment on above: PATIENT WAS FASTINGP ERFORMED BY: [facility] Omdptp0236 [facility] [id number] BY: [address] [id number] Information: SRC:UC Lymphocytes (Bld) [#/Vol] 2.5 10*3/uL Normal 0.7-3.1 [facility]; [facility] Work Phone: Comment on above: PATIENT WAS FASTINGP ERFORMED BY: [employer] Pqtakv9265 [facility] [id number] BY: [address] [id number] Information: SRC:UC Lymphocytes Auto #/vol (Bld) 2.5 {x10E3/uL} Normal 0.7-3.1 [facility] Work Phone: Lymphocytes/100 WBC (Bld) 32 % Normal [facility] Work Phone: Comment on above: PATIENT WAS FASTINGP ERFORMED BY: LabSimulmediaJeffrey Ville 4947070 [facility] [id number] BY: [address] [id number] Information: SRC:UC Lymphocytes/100 WBC Auto (Bld) 32 % Normal [facility] Work Phone: MCH Auto Entitic mass (RBC) 26.1 pg Abnormal 26.6-33.0 [facility] Work Phone: MCH Entitic mass (RBC) 26.1 pg Abnormal 26.6-33.0 Co [facility] Internal Medicine Work Phone: Comment on above: PATIENT WAS FASTINGP ERFORMED BY: LabSimulmedia Amxlxb5553 [facility] [id number] BY: [employer] [id number] Information: SRC:UC MCHC Auto mass conc (RBC) 32.1 g/dL Normal 31.5-35.7 [facility] Work Phone: MCHC mass conc (RBC) 32.1 g/dL Normal 31.5-35.7 Comp rehensive Internal Medicine Work Phone: Comment on above: PATIENT WAS FASTINGP ERFORMED BY: Peek@U LabSimulmediarp Yukjtb1673 [facility] [id number] BY: [employer] [id number] Information: SRC:UC MCV Auto Entitic volume (RBC) 81 fL Normal 79-97 [facility] Work Phone: MCV Entitic volume (RBC) 81 fL Normal 79-97 [facility] Work Phone: Comment on above: PATIENT WAS FASTINGP ERFORMED BY: [employer] Business Solutionsrp Yihphx4158 [facility] [id number] BY: [employer] [id number] Information: SRC:UC Monocytes #/vol (Bld) 0.5 {x10E3/uL} Normal 0.1-0.9 [facility] Work Phone: Comment on above: PATIENT WAS FASTINGP ERFORMED BY: LabSimulmediarp Ymmknj4750 [facility] [id number] BY: [employer] [id number] Information: SRC:UC Monocytes (Bld) [#/Vol] 0.5 10*3/uL Normal 0.1-0.9 [facility]; [facility] Work Phone: Comment on above: PATIENT WAS FASTINGP ERFORMED BY: Peek@U LabSimulmediarp Wmopdc5220 [facility] [id number] BY: LabCo[address] [id number] Information: SRC:UC Monocytes Auto #/vol (Bld) 0.5 {x10E3/uL} Normal 0.1-0.9 [facility] Work Phone: Monocytes/100 WBC (Bld) 7 % Normal [facility] Work Phone: Comment on above: PATIENT WAS FASTINGP ERFORMED BY: inZair70 [facility] [id number] BY: [employer] [id number] Information: SRC:UC Monocytes/100 WBC Auto (Bld) 7 % Normal [facility] Work Phone: Neutrophils #/vol (Bld) 4.3 {x10E3/uL} Normal 1.4-7.0 [facility] Work Phone: Comment on above: PATIENT WAS FASTINGP ERFORMED BY: [employer]6[address] MobileWeaverFormerly [facility] [id number] BY: [employer] [id number] Information: SRC:UC Neutrophils (Bld) [#/Vol] 4.3 10*3/uL Normal 1.4-7.0 [facility]; [facility] Work Phone: Comment on above: PATIENT WAS FASTINGP ERFORMED BY: [employer]6370 [address] [facility] [id number] BY: [employer] [id number] Information: SRC:UC Neutrophils Auto #/vol (Bld) 4.3 {x10E3/uL} Normal 1.4-7.0 [facility] Work Phone: Neutrophils/100 WBC (Bld) 56 % Normal [facility] Work Phone: Comment on above: PATIENT WAS FASTINGP ERFORMED BY: [employer]6370 AppointeddFormerly [facility] [id number] BY: [employer] [id number] Information: SRC:UC Neutrophils/100 WBC Auto (Bld) 56 % Normal [facility] Work Phone: Platelets #/vol (Bld) 266 {x10E3/uL} Normal 150-379 [facility] Work Phone: Comment on above: PATIENT WAS FASTINGP ERFORMED BY: BALJINDER LabColilliam TobinPqbwjt9173 [address] MobileWeaverFormerly [facility] [id number] BY: [employer] [id number] Information: SRC: Platelets (Bld) [#/Vol] 266 10*3/uL Normal 150-379 [facility]; [facility] Work Phone: Comment on above: PATIENT WAS FASTINGP ERFORMED BY: BALJINDER LabRyne SpragueXzznpc2617 [address] MobileWeaverFormerly [facility] [id number] BY: [employer] [id number] Information: SRC: Platelets Auto #/vol (Bld) 266 {x10E3/uL} Normal 150-379 [facility] Work Phone: RBC #/vol (Bld) 4.98 {x10E6/uL} Normal 3.77-5.28 [facility] Work Phone: Comment on above: PATIENT WAS FASTINGP ERFORMED BY: BALJINDER [facility] Maursf9643 [facility] [id number] BY: [employer] [id number] Information: SRC:UC RBC (Bld) [#/Vol] 4.98 10*6/uL Normal 3.77-5.28 [facility]eren[facility]; [facility] Work Phone: Comment on above: PATIENT WAS FASTINGP ERFORMED BY: BALJINDER [facility] Vhkiwu6728 [facility] [id number] BY: [employer] [address] [id number] Information: SRC: RBC Auto #/vol (Bld) 4.98 {x10E6/uL} Normal 3.77-5.28 [facility] Work Phone: WBC #/vol (Bld) 7.8 {x10E3/uL} Normal 3.4-10.8 Compr [facility] Internal Medicine Work Phone: Comment on above: PATIENT WAS FASTINGP ERFORMED BY: [employer]6370 [facility] [id number] BY: [employer] [id number] Information: SRC: WBC (Bld) [#/Vol] 7.8 10*3/uL Normal 3.4-10.8 [facility] Internal Medicine; [facility] Work Phone: Comment on above: PATIENT WAS FASTINGP ERFORMED BY: [employer]6370 [facility] [id number] BY: [employer] [id number] Information: SRC: WBC Auto #/vol (Bld) 7.8 {x10E3/uL} Normal 3.4-10.8 [facility] Work Phone: Cortisol,Urinary Free 24- Ho ur Urine (16594)Ordered By: Casing Finisher And Stuffer on 11-25-2016 Cortisol Free mass conc (U) 8 ug/L Normal [facility] Work Phone: Comment on above: PATIENT NOT FASTINGP ERFORMED BY: [employer] [id number] Information: START 11/24/16@8AM FINIS H 11/25/16@630A Cortisol Free mass/time (24H U) 18 {ug/24_hr} Normal 0-50 [facility] Work Phone: Comment on above: This test was develo ped and its performance characteristicsdetermined by [employer]. It has not been cleared or approvedby the Food and Drug Administration. PATIENT NOT FASTINGP ERFORMED BY: HALEY ecoATM[address] [id number] Information: START 11/24/16@8AM FINIS H 11/25/16@630A FSH AND LH (46206)Ordered By : Casing Finisher And Stuffer on 11-25-2016 Follitropin Qn 3.6 m[IU]/mL Normal Comprehe nsive Internal Medicine Work Phone: Comment on above: Adult Female: Follic ular phase 3.5 - 12.5 Ovulation phase 4.7 - 21.5 Luteal phase 1.7 - 7.7 Postmenopausal 25.8 - 134.8 PATIENT WAS FASTINGP ERFORMED BY: BALJINDER Viridis LearningRaritan Bay Medical Center, Old BridgeGtnjvx8078 [facility] [id number] BY: [employer] [id number] Lutropin Qn 11.1 m[IU]/mL Normal Comprehens stacy Internal Medicine Work Phone: Comment on above: Adult Female: Follic ular phase 2.4 - 12.6 Ovulation phase 14.0 - 95.6 Luteal phase 1.0 - 11.4 Postmenopausal 7.7 - 58.5 PATIENT WAS FASTINGP ERFORMED BY: BALJINDER Viridis LearningRaritan Bay Medical Center, Old BridgeAvcojz[address] [place] [address] [id number] BY: [employer] [id number] INSULIN, TOTAL (04578)Ordere d By: Casing Finisher And Stuffer on 11-25-2016 Insulin Qn 13.8 {uIU/mL} Normal 2.6-24.9 Comprehensi ve Internal Medicine Work Phone: Comment on above: PATIENT WAS FASTINGP ERFORMED BY: BALJINDER Viridis LearningRaritan Bay Medical Center, Old BridgeBhrdnd8788 [facility] [id number] BY: [employer] [id number] Insulin Qn 13.8 u[IU]/mL Normal 2.6-24.9 Comprehensi ve Internal Medicine; [facility] Work Phone: Comment on above: PATIENT WAS FASTINGP ERFORMED BY: BALJINDER [facility] Pdhwpr7960 [facility] [facility] [id number] BY: Lab[address] [id number] METABOLIC PANEL, COMPREHENSI VE (87473)Ordered By: Casing Finisher And Stuffer on 11-25-2016 Albumin mass conc 4.5 g/dL Normal 3.5-5.5 Compreh ensive Internal Medicine Work Phone: Comment on above: PATIENT WAS FASTINGP ERFORMED BY: BALJINDER [facility] Dwklit7840 [facility] [facility] [id number] BY: Lab[address] [id number] Albumin/Globulin mass ratio 1.7 {ratio} Normal 1.2-2.2 [facility] Work Phone: Comment on above: PATIENT WAS FASTINGP ERFORMED BY: BALJINDER [facility] Cknjsl4592 [facility] [facility] [id number] BY: Lab[address] [id number] ALP [Catalytic activity/Vol] 97 U/L Normal 39-117 [facility]; [facility] Work Phone: Comment on above: PATIENT WAS FASTINGP ERFORMED BY: CB [facility] Sqeoyp5454 [facility] [id number] BY: Lab[address] [id number] ALP enzyme act/vol 97 [iU]/L Normal 39-117 Compre [facility] Internal Medicine Work Phone: Comment on above: PATIENT WAS FASTINGP ERFORMED BY: CB [facility] Dumjbg8963 [address] [facility] [id number] BY: Lab[address] [id number] ALT [Catalytic activity/Vol] 9 U/L Normal 0-32 [facility]; [facility] Work Phone: Comment on above: PATIENT WAS FASTINGP ERFORMED BY: CB [facility] Axetzk1160 [address] RoadDublin [place] [id number] BY: LabCo[address] [id number] ALT enzyme act/vol 9 [iU]/L Normal 0-32 [facility] Internal Medicine Work Phone: Comment on above: PATIENT WAS FASTINGP ERFORMED BY: CB [facility] Rmrhja8880 [address] RoadDuin [place] [id number] BY: Lab[address] [id number] AST [Catalytic activity/Vol] 10 U/L Normal 0-40 [facility]; [facility] Internal Medicine Work Phone: Comment on above: PATIENT WAS FASTINGP ERFORMED BY: BALJINDER [facility] Jhxlyh2281 [address] [facility] SystemDuFormerly [facility] [id number] BY: Lab[address] [id number] AST enzyme act/vol 10 [iU]/L Normal 0-40 [facility] Internal Medicine Work Phone: Comment on above: PATIENT WAS FASTINGP ERFORMED BY: BALJINDER [facility] Arrsap4614 [address] [facility] SystemDuFormerly [facility] [id number] BY: Lab[address] [id number] Bilirubin mass conc 0.4 mg/dL Normal 0.0-1.2 [facility] Internal Medicine Work Phone: Comment on above: PATIENT WAS FASTINGP ERFORMED BY: CB [facility] Eyeugj5702 [address] [facility]in [place] [id number] BY: Lab[address] [id number] Calcium mass conc 9.5 mg/dL Normal 8.7-10.2 [facility] Internal Medicine Work Phone: Comment on above: PATIENT WAS FASTINGP ERFORMED BY: CB [facility] Yyuikp6532 [address] [facility] Hospitalblin [place] [id number] BY: [facility] [address] [id number] Chloride molar conc 102 mmol/L Normal 96-106 Compr ensive Internal Medicine Work Phone: Comment on above: PATIENT WAS FASTINGP ERFORMED BY: CB [facility] Bemcip8593 [address] RoadAtrium Health Harrisburgin [place] [id number] BY: BN [facility] [address] [id number] CO2 molar conc 22 mmol/L Normal 18-29 Comprehens stacy Internal Medicine Work Phone: Comment on above: PATIENT WAS FASTINGP ERFORMED BY: CB [facility] Uuztep7628 [address] RoadAtrium Health Harrisburgin [place] [id number] BY: [facility] [address] [id number] Creatinine mass conc 0.72 mg/dL Normal 0.57-1.00 [facility] Centerensive Internal Medicine Work Phone: Comment on above: PATIENT WAS FASTINGP ERFORMED BY: BALJINDER [facility] Tqbxdh2411 [address] [facility] [id number] BY: [facility] [address] [id number] GFR/1.73 sq M predicted among blacks CKD-EPI vol rate/area (S/P/Bld) 137 mL/min/1.73 Normal [facility] Work Phone: Comment on above: PATIENT WAS FASTINGP ERFORMED BY: CB [facility] Kwbmmh6351 [address] RoadAtrium Health Harrisburgin [place] [id number] BY: [facility] [address] [id number] GFR/1.73 sq M predicted among non-blacks CKD-EPI vol rate/area (S/P/Bld) 119 mL/min/1.73 Normal Comprehensiv e Internal Medicine Work Phone: Comment on above: PATIENT WAS FASTINGP ERFORMED BY: CB [facility] Bmarwj3034 [address] RoadDublin [place] [id number] BY: [address] [id number] Globulin Calculated mass conc (S) 2.6 g/dL Normal 1.5-4.5 [facility] Work Phone: Globulin mass conc (S) 2.6 g/dL Normal 1.5-4.5 [facility]eren[facility] Internal Medicine Work Phone: Comment on above: PATIENT WAS FASTINGP ERFORMED BY: [facility] Qwgabr2763 [facility] [id number] BY: [address] [id number] Glucose mass conc 89 mg/dL Normal 65-99 Compreh ensive Internal Medicine Work Phone: Comment on above: PATIENT WAS FASTINGP ERFORMED BY: [facility] Gmopka9227 [facility] [id number] BY: [address] [id number] Potassium molar conc 4.4 mmol/L Normal 3.5-5.2 Comp [facility] hospitalensive Internal Medicine Work Phone: Comment on above: PATIENT WAS FASTINGP ERFORMED BY: BALJINDER [facility] Vwejhb2279 [facility] [id number] BY: [address] [id number] Protein mass conc 7.1 g/dL Normal 6.0-8.5 Compreh ensive Internal Medicine Work Phone: Comment on above: PATIENT WAS FASTINGP ERFORMED BY: [facility] Nxmndm5076 [facility] [id number] BY: [address] [id number] Sodium molar conc 141 mmol/L Normal 134-144 Compreh ensive Internal Medicine Work Phone: Comment on above: PATIENT WAS FASTINGP ERFORMED BY: [facility] Jvvdjs8110 [facility] [id number] BY: Lab[address] [id number] Urea nitrogen mass conc 8 mg/dL Normal 6-20 [facility] Work Phone: Comment on above: PATIENT WAS FASTINGP ERFORMED BY: [facility], Old BridgeYmckxj6399 [facility] [id number] BY: [address] [id number] Urea nitrogen/Creatinine mass ratio 11 mg/mg Normal 9-23 [facility] Work Phone: Comment on above: PATIENT WAS FASTINGP ERFORMED BY: [facility]Co[facility], Old BridgeHmelan2441 [facility] [id number] BY: [address] [id number] Microscopic ExaminationOrder ed By: Casing Finisher And Stuffer on 11-25-2016 Bacteria LM.HPF #/area (Urine sed) Few Normal [facility] Work Phone: Comment on above: PATIENT WAS FASTINGP ERFORMED BY: [facility] Tvpsdy7575 [facility] [id number] BY: [address] [id number] Casts LM Nom (Urine sed) Hyaline casts Normal [facility] Work Phone: Comment on above: PATIENT WAS FASTINGP ERFORMED BY: [facility]6370 [facility] [id number] BY: Lab[address] [id number] Casts LM Ql (Urine sed) Present Abnormal [facility] Work Phone: Comment on above: PATIENT WAS FASTINGP ERFORMED BY: [facility] Sxtnzr4857 [facility] [id number] BY: [address] [id number] Epithelial cells LM.HPF #/area (Urine sed) /[HPF] Abnormal 0 - 10 [facility] Work Phone: Comment on above: PATIENT WAS FASTINGP ERFORMED BY: BALJINDER [facility] Vrqzbh5229 [facility] [id number] BY: [address] [id number] Mucus LM Ql (Urine sed) Present Normal [facility] Work Phone: Mucus Ql (Urine sed) Present Normal Comp rehensive Internal Medicine Work Phone: Comment on above: PATIENT WAS FASTINGP ERFORMED BY: CB [facility] Pzffcp7039 [facility] [id number] BY: [address] [id number] RBC LM.HPF #/area (Urine sed) 0-2 Normal 0 - 2 [facility] Work Phone: Comment on above: PATIENT WAS FASTINGP ERFORMED BY: [facility] Fknsrh2931 [facility] [id number] BY: [address] [id number] WBC LM.HPF #/area (Urine sed) 0-5 Normal 0 - 5 [facility] Work Phone: Comment on above: PATIENT WAS FASTINGP ERFORMED BY: [facility] Wcwxfb6579 [facility] [id number] BY: [address] [id number] T3, FREE (TRIDOTHYRONINE) (3 5195)Ordered By: Casing Finisher And Stuffer on 11-25-2016 T3 free mass conc 4.0 pg/mL Normal 2.0-4.4 Compreh ensive Internal Medicine Work Phone: Comment on above: PATIENT WAS FASTINGP ERFORMED BY: [facility] Qvkxij3403 [facility] [id number] BY: [address] [id number] T4, FREE (THYROXINE) (43247) Ordered By: Casing Finisher And Stuffer on 11-25-2016 T4 free mass conc 1.33 ng/dL Normal 0.82-1.77 Compreh ensive Internal Medicine Work Phone: Comment on above: PATIENT WAS FASTINGP ERFORMED BY: BALJINDER [facility] Rpwyqb2043 [facility] [id number] BY: [address] [id number] TESTOSTERONE FREE (74615)Ord ered By: Casing Finisher And Stuffer on 11-25-2016 Testosterone Free mass conc 3.9 pg/mL Normal 0.0-4.2 [facility] Work Phone: Comment on above: PATIENT WAS FASTINGP ERFORMED BY: BALJINDER [facility] Vmwojv5346 [facility] [id number] BY: [address] [id number] TSH (46489)Ordered By: Syste m Wheat Grower on 11-25-2016 Thyrotropin Qn 1.320 {uIU/mL} Normal 0.450-4.500 Compr ehensive Internal Medicine Work Phone: Comment on above: PATIENT WAS FASTINGP ERFORMED BY: BALJINDER [facility] Hvsonf2018 [facility] [id number] BY: [address] [id number] URINALYSIS, W/ MICRO (80257) Ordered By: Casing Finisher And Stuffer on 11-25-2016 Appearance Nom (U) Clear Normal Compre hensive Internal Medicine Work Phone: Comment on above: PATIENT WAS FASTINGP ERFORMED BY: [facility] Cvlooy4791 [facility] [id number] BY: [address] [id number] Bilirubin Ql (U) Negative Normal Comprehe nsive Internal Medicine Work Phone: Comment on above: PATIENT WAS FASTINGP ERFORMED BY: [facility] Ecugmt4787 [facility] [id number] BY: [facility] [address] [id number] Bilirubin Ql (U) Negative Normal Comprehe nsive Internal Medicine; [facility] Work Phone: Comment on above: PATIENT WAS FASTINGP ERFORMED BY: BALJINDER [facility] Aaocms4763 [address] RoadDublin [place] [id number] BY: LabCo[address] [id number] Color Nom (U) Yellow Normal Comprehensi ve Internal Medicine Work Phone: Comment on above: PATIENT WAS FASTINGP ERFORMED BY: BALJINDER [facility] Djzaaa7472 [address] RoadDublin [place] [id number] BY: LabCo[address] [id number] Glucose Ql (U) Negative Normal Comprehens stacy Internal Medicine Work Phone: Comment on above: PATIENT WAS FASTINGP ERFORMED BY: BALJINDER [facility] Tatyxo2952 [address] RoadDublin [place] [id number] BY: LabCo[address] [id number] Glucose Ql (U) Negative Normal Comprehens stacy Internal Medicine; [facility] Work Phone: Comment on above: PATIENT WAS FASTINGP ERFORMED BY: BALJINDER [facility] Lylkzl6637 [address] RoadDublin [place] [id number] BY: LabCo[address] [id number] Hemoglobin Ql (U) Negative Normal Compreh ensive Internal Medicine Work Phone: Comment on above: PATIENT WAS FASTINGP ERFORMED BY: BALJINDER [facility] Eepufn5467 [address] RoadDublin [place] [id number] BY: LabCo[address] [id number] Hemoglobin Ql (U) Negative Normal Compreh ensive Internal Medicine; [facility] Work Phone: Comment on above: PATIENT WAS FASTINGP ERFORMED BY: BALJINDER [facility] Xztrtd5544 [address] RoadDublin [place] [id number] BY: [address] [id number] Hemoglobin Test strip Ql (U) Negative Normal [facility] Work Phone: Ketones Ql (U) Negative Normal Comprehens stacy Internal Medicine Work Phone: Comment on above: PATIENT WAS FASTINGP ERFORMED BY: BALJINDER [facility] Jfbbxt9188 [address] RoadDublin [place] [id number] BY: [address] [id number] Ketones Ql (U) Negative Normal Comprehens stacy Internal Medicine; [facility] Work Phone: Comment on above: PATIENT WAS FASTINGP ERFORMED BY: BALJINDER [facility] Qorepi7042 [address] RoadDublin [place] [id number] BY: [address] [id number] Leukocyte esterase Test strip Ql (U) Trace Abnormal [facility] Work Phone: Comment on above: PATIENT WAS FASTINGP ERFORMED BY: BALJINDER [facility] Ruxtax1384 [address] RoadDublin [place] [id number] BY: [address] [id number] Microscopic observation LM Nom (Urine sed) See below: Normal [facility] Work Phone: Comment on above: Microscopic was naomi cated and was performed. PATIENT WAS FASTINGP ERFORMED BY: BALJINDER [facility] Ickaua7845 [address] RoadDublin [place] [id number] BY: [address] [id number] Nitrite Ql (U) Negative Normal Comprehens stacy Internal Medicine Work Phone: Comment on above: PATIENT WAS FASTINGP ERFORMED BY: BALJINDER [facility] Zjawxw4820 [address] RoadDublin [place] [id number] BY: BN Lab[address] [id number] Nitrite Ql (U) Negative Normal Comprehens stacy Internal Medicine; [facility] Work Phone: Comment on above: PATIENT WAS FASTINGP ERFORMED BY: BALJINDER Tobin6370 [facility] [id number] BY: [address] [id number] Nitrite Test strip Ql (U) Negative Normal [facility] Work Phone: pH (U) 6.0 [pH] Normal 5.0-7.5 [facility] Work Phone: Comment on above: PATIENT WAS FASTINGP ERFORMED BY: BALJINDER Wang [facility] [id number] BY: [address] [id number] pH Test strip (U) 6.0 [pH] Normal 5.0-7.5 Compreh ensive Internal Medicine Work Phone: Protein Ql (U) Negative Normal Comprehens stacy Internal Medicine Work Phone: Comment on above: PATIENT WAS FASTINGP ERFORMED BY: BALJINDER Wang [facility] [id number] BY: [address] [id number] Protein Ql (U) Negative Normal Comprehens stacy Internal Medicine; [facility] Work Phone: Comment on above: PATIENT WAS FASTINGP ERFORMED BY: BALJINDER Spraguelin6370 [facility] [id number] BY: [address] [id number] Protein Test strip Ql (U) Negative Normal [facility] Work Phone: Specific gravity Relative Density (U) 1.022 1 Normal 1.005-1.030 Comprehensi ve Internal Medicine Work Phone: Comment on above: PATIENT WAS FASTINGP ERFORMED BY: CB [facility] Yskvqa0214 [facility] [facility]in [place] [id number] BY: [address] [id number] Urobilinogen (U) [Mass/Vol] 0.2 mg/dL Normal 0.2-1.0 [facility]; [facility] Work Phone: Comment on above: PATIENT WAS FASTINGP ERFORMED BY: [facility] Vyqkrk9619 [facility] [id number] BY: [address] [id number] Urobilinogen Test strip mass conc (U) 0.2 mg/dL Normal 0.2-1.0 Comprehensiv e Internal Medicine Work Phone: Comment on above: PATIENT WAS FASTINGP ERFORMED BY: [facility] Kojszi9594 [facility] [id number] BY: [address] [id number] URINE ANNIE CULTURE-IDENTIFICA [place] (39019)Ordered By: Casing Finisher And Stuffer on 11-25-2016 Bacteria identified Cx Nom (U) MUG Normal [facility] Work Phone: Comment on above: Mixed urogenital kymberly ra25,000-50,000 colony forming units per mL PATIENT WAS FASTINGP ERFORMED BY: [facility] Nuxgnh5938 [facility] [id number] BY: [address] [id number] Bacteria identified Cx Nom (U) Final report Normal [facility] Work Phone: Comment on above: PATIENT WAS FASTINGP ERFORMED BY: [facility] Jqueyr6730 [facility] [id number] BY: [address] [id number] VITAMIN B-12 (CYANOCOBALAMIN ) (70835)Ordered By: Casing Finisher And Stuffer on 08-07-2017 Cobalamin (Vitamin B12) mass conc 523 pg/mL Normal 211-946 [facility] Work Phone: Comment on above: PATIENT WAS FASTINGP ERFORMED BY: FlexuspineFormerly [facility] [id number] BY: [employer] [id number] Vitamin D Hydroxy (94083)Ord ered By: Casing Finisher And Stuffer on 11-25-2016 25-Hydroxyvitamin D2+25-Hydroxyvitamin D3 mass conc 21.8 ng/mL Abnormal 30.0-100.0 [facility] Work Phone: Comment on above: Vitamin D deficiency has been defined by the [place] ofOhio[facility] Hospitalcine and an Endocrine Society practice guideline as alevel of serum 25-OH vitamin D less than 20 ng/mL (1,2).The Endocrine Society went on to further define vitamin Dinsufficiency as a level between 21 and 29 ng/mL (2).1. IOM ([place] of Medicine). 2010. Dietary reference intakes for calcium and D. [place]: The National Academies Press.2. Juanis MF, Bettina WARREN, Lara CANAS, et al. Evaluation, treatment, and prevention of vitamin D deficiency: an Endocrine Society clinical practice guideline. JCEM. 2010; 96(7):1911-30. PATIENT WAS FASTINGP ERFORMED BY: inZair70 [facility] [id number] BY: [employer] [id number] URINE ANNIE CULTURE-IDENTIF[place] (67049)Ordered By: Casing Finisher And Stuffer on 03-11-2016 Bacteria identified Cx Nom (U) MUG Normal [facility] Work Phone: Comment on above: Mixed urogenital kymberly ra25,000-50,000 colony forming units per mL PATIENT NOT FASTINGP ERFORMED BY: [place] [employer]nergylin6370 [facility] [id number] Information: SRC:UC Bacteria identified Cx Nom (U) Final report Normal [facility] Work Phone: Comment on above: PATIENT NOT FASTINGP ERFORMED BY: BALJINDER [facility] Duydtt8812 [facility] [id number] Information: SRC:WARREN Urinalysis, Office (48289)Or dered By: Manolo Dalal on 03-11-2016 Bilirubin Ql (U) Negative Normal Comprehe nsive Internal Medicine Work Phone: Bilirubin Ql (U) Negative Normal Comprehe nsive Internal Medicine; [facility] Work Phone: Glucose Test strip (U) [Mass/Vol] Negative Normal [facility]; [facility] Work Phone: Glucose Test strip mass conc (U) Negative Normal [facility] Work Phone: Hemoglobin Ql (U) Hemolyzed Trace Normal Co mprehensive Internal Medicine Work Phone: Hemoglobin Test strip Ql (U) Hemolyzed Trace Normal [facility] Work Phone: Ketones Ql (U) Negative Normal Comprehens stacy Internal Medicine Work Phone: Ketones Ql (U) Negative Normal Comprehens stacy Internal Medicine; [facility] Work Phone: Leukocyte esterase Test strip Ql (U) Trace Normal [facility] Work Phone: Nitrite Ql (U) Negative Normal Comprehens stacy Internal Medicine Work Phone: Nitrite Ql (U) Negative Normal Comprehens stacy Internal Medicine; [facility] Work Phone: Nitrite Test strip Ql (U) Negative Normal [facility] Work Phone: pH (U) 5 [pH] Abnormal [facility] Work Phone: pH Test strip (U) 5 [pH] Abnormal Compreh ensive Internal Medicine Work Phone: Protein Ql (U) Negative Normal Comprehens stacy Internal Medicine Work Phone: Protein Ql (U) Negative Normal Comprehens stacy Internal Medicine; [facility] Work Phone: Protein Test strip Ql (U) Negative Normal [facility] Work Phone: Specific gravity Relative Density (U) 1.025 1 Normal Comprehensi ve Internal Medicine Work Phone: Urobilinogen mass/time (24H U) Normal Normal [facility] Work Phone: URINE ANNIE CULTURE-LUÍS COL C OUNT (19942)Ordered By: Casing Finisher And Stuffer on 02-27-2016 Bacteria identified Cx Nom (U) Lactobacillus species Normal Comprehens stacy Internal Medicine Work Phone: Comment on above: 50,000-100,000 colon y forming units per mLSusceptibility not normally performed on this organism. PATIENT NOT FASTINGP ERFORMED BY: [employer] [place] [id number] Information: SRC: Bacteria identified Cx Nom (U) Final report Normal [facility] Work Phone: Comment on above: PATIENT NOT FASTINGP ERFORMED BY: NewsgrapeSaint [facility] [place] [id number] Information: SRC:WARREN Urinalysis, Office (08491)Or dered By: Manolo Dalal on 02-27-2016 Bilirubin Ql (U) Negative Normal Comprehe nsive Internal Medicine Work Phone: Bilirubin Ql (U) Negative Normal Comprehe nsive Internal Medicine; [facility] Work Phone: Glucose Test strip (U) [Mass/Vol] Negative Normal [facility]; [facility] Work Phone: Glucose Test strip mass conc (U) Negative Normal [facility] Work Phone: Hemoglobin Ql (U) Hemolyzed Trace Normal Co mprehensive [facility] Medicine Work Phone: Hemoglobin Test strip Ql (U) Hemolyzed Trace Normal [facility] Work Phone: Ketones Ql (U) Negative Normal Comprehens stacy Internal Medicine Work Phone: Ketones Ql (U) Negative Normal Comprehens stacy Internal Medicine; [facility] Work Phone: Leukocyte esterase Test strip Ql (U) Moderate Normal [facility] Work Phone: Nitrite Ql (U) Negative Normal Comprehens stacy [facility] Medicine Work Phone: Nitrite Ql (U) Negative Normal Comprehens stacy Internal Medicine; [facility] Work Phone: Nitrite Test strip Ql (U) Negative Normal [facility] Work Phone: pH (U) 7.5 [pH] Normal [facility] Work Phone: pH Test strip (U) 7.5 [pH] Normal Compreh ensive Internal Medicine Work Phone: Protein Ql (U) Negative Normal Comprehens stacy Internal Medicine Work Phone: Protein Ql (U) Negative Normal Comprehens stacy Internal Medicine; [facility] Work Phone: Protein Test strip Ql (U) Negative Normal [facility] Work Phone: Specific gravity Relative Density (U) 1.015 1 Normal Comprehensi ve Internal Medicine Work Phone: Urobilinogen mass/time (24H U) Normal Normal [facility] Work Phone: HPV automatic (50380)Ordered By: Casing Finisher And Stuffer on 02-05-2016 HPV 16+18+31+33+35+39+45+5 1+52+56+58+59+68 DNA Probe+sig amp Ql (Cvx) Negative Normal Comprehen sive Internal Medicine Work Phone: Comment on above: This high-risk HPV t est detects thirteen high-risk types(16/18/31/33/35/39/45/51/52/56/58/59/68) without differentiation. . No. of containers..0 1 CYTYC Thin Prep VialPATIENT NOT FASTINGPERFORMED BY: WB [facility] [address]kwnyuzvob[address] [id number] BY: =G [facility] Fyjnjlwypu[address] [id number] Information: [id number] HPV 16+18+31+33+35+39+45+5 1+52+56+58+59+68 DNA Probe+sig amp Ql (Cvx) Negative Normal Comprehen sive Internal Medicine; [facility] Work Phone: Comment on above: This high-risk HPV t est detects thirteen high-risk types(16/18/31/33/35/39/45/51/52/56/58/59/68) without differentiation. . No. of containers..0 1 CYTYC Thin Prep VialPATIENT NOT FASTINGPERFORMED BY: WB [facility] Yvffafmbum442 [place] [id number] BY: =G [facility] Jcsckfjicd102 [place] [id number] Information: [id number] Microscopic observation Other stain Nom (Unsp spec) . Normal Comprehens stacy Internal Medicine Work Phone: Comment on above: No. of containers..0 1 CYTYC Thin Prep VialPATIENT NOT FASTINGPERFORMED BY: WB [facility] Fcvvknalwz550 [place] [id number] BY: =G [facility] Lbwazoyibx233 [place] [id number] Information: [id number] Pathology report final diagnosis Narrative SPRCS Normal Comprehensiv e Internal Medicine Work Phone: Comment on above: NEGATIVE FOR INTRAEP ITHELIAL LESION AND MALIGNANCY.Satisfactory for evaluation. Endocervical and/or squamous metaplasticcells (endocervical component) are present.Z01.419Z11.51Mary Arroyo Sr. Payroll Processor (ASCP) No. of containers..0 1 CYTYC Thin Prep VialPATIENT NOT FASTINGPERFORMED BY: WB [facility] Ztbecfnego571 [place] [id number] BY: =G [facility] Gmpgljkjyp697 [place] [id number] Information: [id number] HPV automatic (35869) PAPSMR Normal Com prehensive Internal Medicine Work Phone: Comment on above: The Pap smear is a s creening test designed to aid in the detection ofpremalignant and malignant conditions of the uterine cervix. It is not adiagnostic procedure and should not be used as the sole means of detectingcervical cancer. Both false-positive and false-negative reports do occur. .This liquid based ThinPrep(R) pap test was screened with theuse of an image guided system. No. of containers..0 1 CYTYC Thin Prep VialPATIENT NOT FASTINGPERFORMED BY: WB [employer] Dqotevdjut[address] [id number] BY: =G [facility] Lnybsyuldf[address] [id number] Information: [id number] DHEA SulfateOrdered By: Syst em Wheat Grower on 11-23-2014 Dehydroepiandrosterone sulfate (DHEA-S) mass conc 199.9 ug/dL Normal 110.0-431.7 [facility] Work Phone: Comment on above: Performed at: [address] [id number] Director: Alvin Porter PhD, Phone: [phone] at: [address] [id number] Director: Hema Nelson MD, Phone: [phone] Has Patient had X-ra ys with Contrast this admission? NComments: [id number] MAG RBC,LAV,REFRIGERATE,CENT WITHIN 45MHas Patient had Radioactive Injection for X-ray?: NTest performed at:[facility] Leanmhbfye9785 Lucian JangEl [place], [place] [id number] EstradiolOrdered By: Casing Finisher And Stuffer on 11-23-2014 Estradiol (E2) mass conc 116.8 pg/mL Normal [facility] Work Phone: Comment on above: NORMAL REFERENCE RAN GES FEMALE FOLLICULAR 21.4 - 164.8 pg/mL MID-CYCLE PEAK 49.9 - 367.2 pg/mL LUTEAL 40.2 - 259.0 pg/mL POST-MENOPAUSAL ON MHT <11.0 - 462.1 pg/mL NOT ON MHT <11.0 - 58.3 pg/mL MALE <11.0 - 52.5 pg/mLNEW TEST METHOD AND REFERENCE RANGE SEPTEMBER 09, 2011 Has Patient had X-ra ys with Contrast this admission? NComments: [id number] MAG RBC,LAV,REFRIGERATE,CENT WITHIN 45MTest performed at:[facility] Mthnttqaw[address] [place] [address] Free R0Gvdazqv By: System Bella buck on 11-23-2014 T3 free mass conc 3.6 pg/mL Normal 2.18-3.98 Compreh ensive Internal Medicine Work Phone: Comment on above: Has Patient had X-ra ys with Contrast this admission? NComments: [id number] MAG RBC,LAV,REFRIGERATE,CENT WITHIN 45MTest performed at:[address] [address] Miscellaneous Lab ProcedureO rdered By: Casing Finisher And Stuffer on 11-23-2014 [facility] LAB TEST Normal Comprehensi ve Internal Medicine Work Phone: Comment on above: TEST RESULT UNITS RE FERENCE INTERVALMagnesium, RBC 5.0 mg/dL 4.2 - 6.8 TESTING PERFORMED AT [facility]. ORIGINAL REPORT ON FILE IN LAB CONTAINS ADDITIONAL TEST SITE INFORMATION. Comments: [id number] M AG RBC,LAV,REFRIGERATE,CENT WITHIN 45MTest(s) Ordered: [id number] MAG RBC,LAV,REFRIGERATE,CENT WITHIN 45MTest performed at:[facility] Ucdgceqxbk[address] [place] [address] Progesterone LevelOrdered By : Casing Finisher And Stuffer on 11-23-2014 Progesterone mass conc 3.75 ng/mL Normal Co mprehensive Internal Medicine Work Phone: Comment on above: Progesterone Referen ce Table: UNITS Female: Follicular 0.15 - 1.40 ng/mL Luteal 3.34 - 25.56 ng/mL Mid-luteal 4.44 - 28.03 ng/mL Postmenopausal 0.0 - 0.73 ng/mL : 1st Trimester 11.22 - 90.00 ng/mL 2nd Trimester 25.55 - 89.40 ng/mL 3rd Trimester 48.40 -422.50 ng/mL Test performed at:[facility] Nvndocthjf7364 [place], [place] [id number] Testosterone, Total / FreeOr dered By: Casing Finisher And Stuffer on 11-23-2014 COMMENT Test not performed Normal [facility] Internal Medicine Work Phone: Comment on above: Has Patient had X-ra ys with Contrast this admission? NComments: [id number] MAG RBC,LAV,REFRIGERATE,CENT WITHIN 45MHas Patient had Radioactive Injection for X-ray?: NTest performed at:[facility] Apyuqdviqa3473 [place] [address] TESTOSTER %FREE 1.20 % Normal 0.50-2.80 [facility] Internal Medicine Work Phone: Comment on above: Has Patient had X-ra ys with Contrast this admission? NComments: [id number] MAG RBC,LAV,REFRIGERATE,CENT WITHIN 45MHas Patient had Radioactive Injection for X-ray?: NTest performed at:[facility] Eudrebbcvt0705 [facility] [place] [address] TESTOSTER,FREE 0.34 ng/dL Normal 0.10-0.85 [facility] Internal Medicine Work Phone: Comment on above: Has Patient had X-ra ys with Contrast this admission? NComments: [id number] MAG RBC,LAV,REFRIGERATE,CENT WITHIN 45MHas Patient had Radioactive Injection for X-ray?: NTest performed at:[facility] Qgbhmszytb3202 [facility] [place] [address] TESTOSTER,TOTAL 28 ng/dL Normal 8-48 [facility] Internal Medicine Work Phone: Comment on above: Has Patient had X-ra ys with Contrast this admission? NComments: [id number] MAG RBC,LAV,REFRIGERATE,CENT WITHIN 45MHas Patient had Radioactive Injection for X-ray?: NTest performed at:[facility] Bcqfqavggd[address]aley[address] [place], [place] [id number] Rapid Strep Test, Office ([phone])Ordered By: Taya Shah on 09-09-2014 S. pyogenes Ag EIA Ql (Throat) Negative Normal [facility]; [facility] Work Phone: S. pyogenes Ag IA Ql (Unsp spec) Negative Normal [facility] Work Phone: Upper Respiratory CultureOrd ered By: Casing Finisher And Stuffer on 09-09-2014 Bacteria identified Respiratory culture Nom (Unsp spec) RRF Normal [facility] Work Phone: Comment on above: Routine respiratory yaima PATIENT NOT FASTINGP ERFORMED BY: BALJINDER LabMemberTender.comFormerly [facility] [id number] Information: SRC: THROAT Bacteria identified Respiratory culture Nom (Unsp spec) Final report Normal [facility] Work Phone: Comment on above: PATIENT NOT FASTINGP ERFORMED BY: BALJINDER [employer] Pione[employer] SolutionsFormerly [facility] [id number] Information: SRC: THROAT EstradiolOrdered By: Casing Finisher And Stuffer on 08-30-2014 Estradiol (E2) mass conc 30.7 pg/mL Normal [facility] Work Phone: Comment on above: NORMAL REFERENCE RAN GES FEMALE FOLLICULAR 21.4 - 164.8 pg/mL MID-CYCLE PEAK 49.9 - 367.2 pg/mL LUTEAL 40.2 - 259.0 pg/mL POST-MENOPAUSAL ON MHT <11.0 - 462.1 pg/mL NOT ON MHT <11.0 - 58.3 pg/mL MALE <11.0 - 52.5 pg/mLNEW TEST METHOD AND REFERENCE RANGE SEPTEMBER 09, 2011 Test performed at:[facility] Jttbnfbyom[address] [place], [place] [id number] Progesterone LevelOrdered By : Casing Finisher And Stuffer on 08-30-2014 Progesterone mass conc 11.36 ng/mL Normal C omprehensive Internal Medicine Work Phone: Comment on above: Progesterone Referen ce Table: UNITS Female: Follicular 0.15 - 1.40 ng/mL Luteal 3.34 - 25.56 ng/mL Mid-luteal 4.44 - 28.03 ng/mL Postmenopausal 0.0 - 0.73 ng/mL : 1st Trimester 11.22 - 90.00 ng/mL 2nd Trimester 25.55 - 89.40 ng/mL 3rd Trimester 48.40 -422.50 ng/mL Test performed at:[facility] Dcqlzfbgrt[address] [place], [place] [id number] Testosterone FreeOrdered By: Casing Finisher And Stuffer on 08-30-2014 Testosterone Free mass conc 2.3 pg/mL Normal 0.0-4.2 [facility] Work Phone: Comment on above: Performed at: [address] [id number] Director: Hema Nelson MD, Phone: [phone] Test performed at:[facility] Dfxgpersud[address] [place], [place] [id number] DHEA SulfateOrdered By: Syst em Wheat Grower on 05-27-2014 DHEA Sulfate 242.6 ug/dL Normal 110.0-431.7 Comprehens stacy Internal Medicine Work Phone: Comment on above: Has Patient had Radi oactive Injection for X-ray?: NTest performed at:[facility] Uxjfpmohtm4[address] [place], [place] [id number] ; ordered by kobe EstradiolOrdered By: Casing Finisher And Stuffer on 05-27-2014 Estradiol 263.4 pg/mL Normal [facility] Work Phone: Comment on above: NORMAL REFERENCE RAN GES FEMALE FOLLICULAR 21.4 - 164.8 pg/mL MID-CYCLE PEAK 49.9 - 367.2 pg/mL LUTEAL 40.2 - 259.0 pg/mL POST-MENOPAUSAL ON MHT <11.0 - 462.1 pg/mL NOT ON MHT <11.0 - 58.3 pg/mL MALE <11.0 - 52.5 pg/mLNEW TEST METHOD AND REFERENCE RANGE SEPTEMBER 09, 2011 MAG,RBCTest performe d at:[facility] Arahwhovah[address] [place] [address] Free U7Swzibzp By: System Bella buck on 05-27-2014 T3 free mass conc 3.3 pg/mL Normal 2.18-3.98 Compreh ensive Internal Medicine Work Phone: Comment on above: MAG,RBCTest performe d at:[facility] Qmfaaqvymi[address]26 [place] [address] MagnesiumOrdered By: Casing Finisher And Stuffer on 05-27-2014 Magnesium mass conc 1.3 mg/dL Abnormal 1.8-2.4 Compr ehensive Internal Medicine Work Phone: Comment on above: MAG,RBCTest performe d at:[facility] Inhnuaueof[address] [place] [address] ; ordered by Dr. Martinez Progesterone LevelOrdered By : Casing Finisher And Stuffer on 05-27-2014 Protein mass conc 1.32 ng/mL Normal Compreh ensive Internal Medicine Work Phone: Comment on above: Progesterone Referen ce Table: UNITS Female: Follicular 0.15 - 1.40 ng/mL Luteal 3.34 - 25.56 ng/mL Mid-luteal 4.44 - 28.03 ng/mL Postmenopausal 0.0 - 0.73 ng/mL : 1st Trimester 11.22 - 90.00 ng/mL 2nd Trimester 25.55 - 89.40 ng/mL 3rd Trimester 48.40 -422.50 ng/mL Test performed at:[facility] Qhjsnignnp[address] [place], [place] [id number] ; will review at 06/10 appt Progesterone Level 1.32 ng/mL Normal Compre hensive Internal Medicine Work Phone: Comment on above: Progesterone Referen ce Table: UNITS Female: Follicular 0.15 - 1.40 ng/mL Luteal 3.34 - 25.56 ng/mL Mid-luteal 4.44 - 28.03 ng/mL Postmenopausal 0.0 - 0.73 ng/mL : 1st Trimester 11.22 - 90.00 ng/mL 2nd Trimester 25.55 - 89.40 ng/mL 3rd Trimester 48.40 -422.50 ng/mL Test performed at:[facility] Fpfgbuccwa[address] [place], [place] [address] ; will review at 06/10 app Testosterone FreeOrdered By: Casing Finisher And Stuffer on 05-27-2014 Testosterone Free 0.4 pg/mL Normal 0.0-2.2 Compreh ensive Internal Medicine Work Phone: Comment on above: Performed at: [facility] [address] [id number] Director: Gaetano Orozco PhD, Phone: [phone] at: [address] [id number] Director: Hema Nelson MD, Phone: [phone] Has Patient had Radi oactive Injection for X-ray?: NTest performed at:[facility] Vwbqnkpany2017 [address]ianzahra StaleyC[place], [place] [address] CBC W/AUTO DIFF WBC (91813)O rdered By: Casing Finisher And Stuffer on 05-10-2014 Basophils #/vol (Bld) 0.0 {x10E3/uL} Normal 0.0-0.2 [facility] Work Phone: Comment on above: PATIENT WAS FASTINGP ERFORMED BY: [employer] [id number] Information: [id number] Basophils (Bld) [#/Vol] 0.0 10*3/uL Normal 0.0-0.2 [facility]; [facility] Work Phone: Comment on above: PATIENT WAS FASTINGP ERFORMED BY: [employer] [id number] Information: [id number] Basophils Auto #/vol (Bld) 0.0 {x10E3/uL} Normal 0.0-0.2 [facility] Work Phone: Basophils/100 WBC (Bld) 0 % Normal [facility] Work Phone: Comment on above: PATIENT WAS FASTINGP ERFORMED BY: BALJINDER [place] [address]487370 [facility] [id number] Information: [id number] Basophils/100 WBC Auto (Bld) 0 % Normal [facility] Work Phone: Eosinophils #/vol (Bld) 0.5 {x10E3/uL} Abnormal 0.0-0.4 [facility] Work Phone: Comment on above: PATIENT WAS FASTINGP ERFORMED BY: BALJINDER [address] [id number] Information: [id number] Eosinophils (Bld) [#/Vol] 0.5 10*3/uL Abnormal 0.0-0.4 [facility]; [facility] Work Phone: Comment on above: PATIENT WAS FASTINGP ERFORMED BY: BALJINDER [place] [address]487370 [facility] [id number] Information: [id number] Eosinophils Auto #/vol (Bld) 0.5 {x10E3/uL} Abnormal 0.0-0.4 [facility] Work Phone: Eosinophils/100 WBC (Bld) 5 % Normal [facility] Work Phone: Comment on above: PATIENT WAS FASTINGP ERFORMED BY: [address] [id number] Information: [id number] Eosinophils/100 WBC Auto (Bld) 5 % Normal [facility] Work Phone: Erythrocyte distribution width Auto Ratio (RBC) 13.2 % Normal 12.3-15.4 [facility] Work Phone: Erythrocyte distribution width Ratio (RBC) 13.2 % Normal 12.3-15.4 [facility] Work Phone: Comment on above: PATIENT WAS FASTINGP ERFORMED BY: [address] [id number] Information: [id number] Hematocrit Auto Volume Fraction (Bld) 39.5 % Normal 34.0-46.6 [facility] Work Phone: Hematocrit Volume Fraction (Bld) 39.5 % Normal 34.0-46.6 [facility] Work Phone: Comment on above: PATIENT WAS FASTINGP ERFORMED BY: [address] [id number] Information: [id number] Hemoglobin mass conc (Bld) 13.1 g/dL Normal 11.1-15.9 [facility] Work Phone: Comment on above: PATIENT WAS FASTINGP ERFORMED BY: [address] [id number] Information: [id number] Immature granulocytes #/vol (Bld) 0.0 {x10E3/uL} Normal 0.0-0.1 [facility] Work Phone: Comment on above: PATIENT WAS FASTINGP ERFORMED BY: [address] [id number] Information: [id number] Immature granulocytes (Bld) [#/Vol] 0.0 10*3/uL Normal 0.0-0.1 [facility]; [facility] Work Phone: Comment on above: PATIENT WAS FASTINGP ERFORMED BY: [address] [id number] Information: [id number] Immature granulocytes/100 WBC (Bld) 0 % Normal [facility] Work Phone: Comment on above: PATIENT WAS FASTINGP ERFORMED BY: [address] [id number] Information: [id number] Lymphocytes #/vol (Bld) 2.6 {x10E3/uL} Normal 0.7-3.1 [facility] Work Phone: Comment on above: PATIENT WAS FASTINGP ERFORMED BY: BALJINDER [facility]6370 [facility] [id number] Information: [id number] Lymphocytes (Bld) [#/Vol] 2.6 10*3/uL Normal 0.7-3.1 [facility]; [facility] Work Phone: Comment on above: PATIENT WAS FASTINGP ERFORMED BY: BALJINDER [place] [address] [facility] [id number] Information: [id number] Lymphocytes Auto #/vol (Bld) 2.6 {x10E3/uL} Normal 0.7-3.1 [facility] Work Phone: Lymphocytes/100 WBC (Bld) 25 % Normal [facility] Work Phone: Comment on above: PATIENT WAS FASTINGP ERFORMED BY: BALJINDER [place] [address]487[address] [facility] [id number] Information: [id number] Lymphocytes/100 WBC Auto (Bld) 25 % Normal [facility] Work Phone: MCH Auto Entitic mass (RBC) 27.0 pg Normal 26.6-33.0 [facility] Work Phone: MCH Entitic mass (RBC) 27.0 pg Normal 26.6-33.0 [facility] Internal Medicine Work Phone: Comment on above: PATIENT WAS FASTINGP ERFORMED BY: [place] [address] [facility] [id number] Information: [id number] MCHC Auto mass conc (RBC) 33.2 g/dL Normal 31.5-35.7 [facility] Work Phone: MCHC mass conc (RBC) 33.2 g/dL Normal 31.5-35.7 [facility] Internal Medicine Work Phone: Comment on above: PATIENT WAS FASTINGP ERFORMED BY: BALJINDER [place] [address] [facility] [id number] Information: [id number] MCV Auto Entitic volume (RBC) 81 fL Normal 79-97 [facility] Work Phone: MCV Entitic volume (RBC) 81 fL Normal 79-97 [facility] Work Phone: Comment on above: PATIENT WAS FASTINGP ERFORMED BY: BALJINDER [place] [address] [facility] [id number] Information: [id number] Monocytes #/vol (Bld) 0.6 {x10E3/uL} Normal 0.1-0.9 [facility] Work Phone: Comment on above: PATIENT WAS FASTINGP ERFORMED BY: BALJINDER [facility] [address] [id number] Information: [id number] Monocytes (Bld) [#/Vol] 0.6 10*3/uL Normal 0.1-0.9 [facility]; [facility] Work Phone: Comment on above: PATIENT WAS FASTINGP ERFORMED BY: BALJINDER [address] [id number] Information: [id number] Monocytes Auto #/vol (Bld) 0.6 {x10E3/uL} Normal 0.1-0.9 [facility] Work Phone: Monocytes/100 WBC (Bld) 6 % Normal [facility] Work Phone: Comment on above: PATIENT WAS FASTINGP ERFORMED BY: [address] [id number] Information: [id number] Monocytes/100 WBC Auto (Bld) 6 % Normal [facility] Work Phone: Neutrophils #/vol (Bld) 6.8 {x10E3/uL} Normal 1.4-7.0 [facility] Work Phone: Comment on above: PATIENT WAS FASTINGP ERFORMED BY: [address] StreetDublin [place] [id number] Information: [id number] Neutrophils (Bld) [#/Vol] 6.8 10*3/uL Normal 1.4-7.0 [facility]; [facility] Work Phone: Comment on above: PATIENT WAS FASTINGP ERFORMED BY: [place] [address] [facility] [id number] Information: [id number] Neutrophils Auto #/vol (Bld) 6.8 {x10E3/uL} Normal 1.4-7.0 [facility] Work Phone: Neutrophils/100 WBC (Bld) 64 % Normal [facility] Work Phone: Comment on above: PATIENT WAS FASTINGP ERFORMED BY: [place] [address] [facility] [id number] Information: [id number] Neutrophils/100 WBC Auto (Bld) 64 % Normal [facility] Work Phone: Platelets #/vol (Bld) 261 {x10E3/uL} Normal 150-379 [facility] Work Phone: Comment on above: PATIENT WAS FASTINGP ERFORMED BY: BALJINDER [facility]6370 [facility] [id number] Information: [id number] Platelets (Bld) [#/Vol] 261 10*3/uL Normal 150-379 [facility]; [facility] Work Phone: Comment on above: PATIENT WAS FASTINGP ERFORMED BY: [facility]6370 [facility] [id number] Information: [id number] Platelets Auto #/vol (Bld) 261 {x10E3/uL} Normal 150-379 [facility] Work Phone: RBC #/vol (Bld) 4.85 {x10E6/uL} Normal 3.77-5.28 Comp rehensive Internal Medicine Work Phone: Comment on above: PATIENT WAS FASTINGP ERFORMED BY: [facility]6370 [facility] [id number] Information: [id number] RBC (Bld) [#/Vol] 4.85 10*6/uL Normal 3.77-5.28 [facility]; [facility] Work Phone: Comment on above: PATIENT WAS FASTINGP ERFORMED BY: [place] [address] [facility] [id number] Information: [id number] RBC Auto #/vol (Bld) 4.85 {x10E6/uL} Normal 3.77-5.28 [facility] Work Phone: WBC #/vol (Bld) 10.6 {x10E3/uL} Normal 3.4-10.8 [facility] Internal Medicine Work Phone: Comment on above: PATIENT WAS FASTINGP ERFORMED BY: [facility]6370 [facility] [id number] Information: [id number] WBC (Bld) [#/Vol] 10.6 10*3/uL Normal 3.4-10.8 [facility]; [facility] Work Phone: Comment on above: PATIENT WAS FASTINGP ERFORMED BY: [facility]6370 [facility] [id number] Information: [id number] WBC Auto #/vol (Bld) 10.6 {x10E3/uL} Normal 3.4-10.8 [facility] Work Phone: LIPID PANEL ([id number])Ordered B y: Casing Finisher And Stuffer on 05-10-2014 Cholesterol in HDL mass conc 55 mg/dL Normal [facility] Work Phone: Comment on above: According to ATP-III Guidelines, HDL-C >59 mg/dL is considered anegative risk factor for CHD. PATIENT WAS FASTINGP ERFORMED BY: [place] [address] [facility] [id number] Cholesterol in LDL mass conc 92 mg/dL Normal 0-119 [facility] Work Phone: Comment on above: PATIENT WAS FASTINGP ERFORMED BY: BALJINDER Tobin[address] [facility] [id number] Cholesterol in LDL/Cholesterol in HDL mass ratio 1.7 {ratio_units} Normal 0.0-3.2 [facility] Work Phone: Comment on above: LDL/HDL Ratio Men Wo men 1/2 Avg.Risk 1.0 1.5 Avg.Risk 3.6 3.2 2X Avg.Risk 6.2 5.0 3X Avg.Risk 8.0 6.1 PATIENT WAS FASTINGP ERFORMED BY: BALJINDER Tobin6[address] [facility] [id number] Cholesterol in VLDL mass conc 17 mg/dL Normal 5-40 [facility] Work Phone: Comment on above: PATIENT WAS FASTINGP ERFORMED BY: BALJINDER Tobin6[address] [facility] [id number] Cholesterol mass conc 164 mg/dL Normal 100-189 Com prehensive Internal Medicine Work Phone: Comment on above: PATIENT WAS FASTINGP ERFORMED BY: BALJINDER Tobin6[address] [facility] [id number] Triglyceride mass conc 84 mg/dL Normal 0-114 Co mprehensive [facility] Medicine Work Phone: Comment on above: PATIENT WAS FASTINGP ERFORMED BY: BALJINDER Tobin6[address] [facility] [id number] METABOLIC PANEL, COMPREHENSI VE ([id number])Ordered By: Casing Finisher And Stuffer on 05-10-2014 Albumin mass conc 4.4 g/dL Normal 3.5-5.5 Compreh ensive Internal Medicine Work Phone: Comment on above: PATIENT WAS FASTINGP ERFORMED BY: BALJINDER Tobin6[address] [facility] [id number] Albumin/Globulin mass ratio 2.0 {ratio} Normal 1.1-2.5 [facility] Work Phone: Comment on above: PATIENT WAS FASTINGP ERFORMED BY: BALJINDER [facility] Zejsch6450 [address]neill RoadDublin [place] [id number] ALP [Catalytic activity/Vol] 84 U/L Normal 39-117 [facility]; [facility] Internal Medicine Work Phone: Comment on above: PATIENT WAS FASTINGP ERFORMED BY: BALJINDER [facility] Bqwusw1059 [address]neill RoadDublin [place] [id number] ALP enzyme act/vol 84 [iU]/L Normal 39-117 [facility] Internal Medicine Work Phone: Comment on above: PATIENT WAS FASTINGP ERFORMED BY: BALJINDER [facility] Oyutvt8520 [address] RoadDublin [place] [id number] ALT [Catalytic activity/Vol] 13 U/L Normal 0-32 [facility] Internal [facility]; [facility] Internal Medicine Work Phone: Comment on above: PATIENT WAS FASTINGP ERFORMED BY: BALJINDER LabColilliam SpragueGaoknv1958 [address]ill RoadDublin [place] [id number] ALT enzyme act/vol 13 [iU]/L Normal 0-32 [facility] Internal Medicine Work Phone: Comment on above: PATIENT WAS FASTINGP ERFORMED BY: BALJINDER LabColilliam SpragueRczfah2971 [address] RoadDublin [place] [id number] AST [Catalytic activity/Vol] 12 U/L Normal 0-40 [facility] Internal [facility]; [facility] Internal Medicine Work Phone: Comment on above: PATIENT WAS FASTINGP ERFORMED BY: BALJINDER [facility] Xwxzec2050 [address] RoadDublin [place] [id number] AST enzyme act/vol 12 [iU]/L Normal 0-40 [facility] Internal Medicine Work Phone: Comment on above: PATIENT WAS FASTINGP ERFORMED BY: BALJINDER [facility] Vgqfiu2020 [address] RoadDublin [place] [id number] Bilirubin mass conc 0.3 mg/dL Normal 0.0-1.2 [facility] Internal Medicine Work Phone: Comment on above: PATIENT WAS FASTINGP ERFORMED BY: BALJINDER [facility] Hoedff9167 [address] RoadDublin [place] [id number] Calcium mass conc 9.5 mg/dL Normal 8.7-10.2 Compreh ensive Internal Medicine Work Phone: Comment on above: Please note refere nce interval change PATIENT WAS FASTINGP ERFORMED BY: CB [facility] Nqafze[address] [facility]in [place] [id number] Chloride molar conc 103 mmol/L Normal 97-108 Compr ehensive Internal Medicine Work Phone: Comment on above: PATIENT WAS FASTINGP ERFORMED BY: CB [facility] Bpqyzw[address] [facility] [place] [id number] CO2 molar conc 22 mmol/L Normal 18-29 Comprehens stacy Internal Medicine Work Phone: Comment on above: PATIENT WAS FASTINGP ERFORMED BY: CB [facility] [address]tkqdz[address] [facility] [id number] Creatinine mass conc 0.69 mg/dL Normal 0.57-1.00 Comp rehensive Internal Medicine Work Phone: Comment on above: PATIENT WAS FASTINGP ERFORMED BY: [facility] Djehdi[address] [facility] [place] [id number] GFR/1.73 sq M predicted among blacks CKD-EPI vol rate/area (S/P/Bld) 145 mL/min/1.73 Normal [facility] Work Phone: Comment on above: PATIENT WAS FASTINGP ERFORMED BY: [facility] Txivms[address] [facility] [id number] GFR/1.73 sq M predicted among non-blacks CKD-EPI vol rate/area (S/P/Bld) 126 mL/min/1.73 Normal Comprehensiv e Internal Medicine Work Phone: Comment on above: PATIENT WAS FASTINGP ERFORMED BY: CB [facility] Pcjfek[address] [facility] [place] [id number] Globulin Calculated mass conc (S) 2.2 g/dL Normal 1.5-4.5 [facility] Work Phone: Globulin mass conc (S) 2.2 g/dL Normal 1.5-4.5 Co mprehensive [facility] Medicine Work Phone: Comment on above: PATIENT WAS FASTINGP ERFORMED BY: BALJINDER Tobin6370 [facility] [id number] Glucose mass conc 89 mg/dL Normal 65-99 Compreh ensive Internal Medicine Work Phone: Comment on above: PATIENT WAS FASTINGP ERFORMED BY: BALJINDER Spraguelin6370 [facility] [id number] Potassium molar conc 4.3 mmol/L Normal 3.5-5.2 Comp rehensive Internal Medicine Work Phone: Comment on above: PATIENT WAS FASTINGP ERFORMED BY: BALJINDER Spraguelin6370 [facility] [id number] Protein mass conc 6.6 g/dL Normal 6.0-8.5 Compreh ensive Internal Medicine Work Phone: Comment on above: PATIENT WAS FASTINGP ERFORMED BY: BALJINDER Spraguelin6370 [facility] [id number] Sodium molar conc 138 mmol/L Normal 134-144 Compreh ensive Internal Medicine Work Phone: Comment on above: PATIENT WAS FASTINGP ERFORMED BY: BALJINDER Spraguelin6370 [facility] [id number] Urea nitrogen mass conc 6 mg/dL Normal 6-20 [facility] Work Phone: Comment on above: PATIENT WAS FASTINGP ERFORMED BY: BALJINDER Spraguelin6370 [facility] [id number] Urea nitrogen/Creatinine mass ratio 9 mg/mg Normal 8-20 [facility] Work Phone: Comment on above: PATIENT WAS FASTINGP ERFORMED BY: BALJINDER Spraguelin6370 [facility] [id number] Microscopic ExaminationOrder ed By: Casing Finisher And Stuffer on 05-10-2014 Bacteria LM.HPF #/area (Urine sed) Few Normal [facility] Work Phone: Comment on above: PATIENT WAS FASTINGP ERFORMED BY: BALJINDER [facility] Sdeczt3647 [address] RoadDublin [place] [id number] Epithelial cells LM.HPF #/area (Urine sed) 0-10 Normal 0 - 10 [facility] Work Phone: Comment on above: PATIENT WAS FASTINGP ERFORMED BY: BALJINDER [facility] Isljqe2521 [address] RoadDublin [place] [id number] RBC LM.HPF #/area (Urine sed) 0-2 Normal 0 - 2 [facility] Work Phone: Comment on above: PATIENT WAS FASTINGP ERFORMED BY: [facility] Whfayc8417 [address] RoadDublin [place] [id number] WBC LM.HPF #/area (Urine sed) 0-5 Normal 0 - 5 [facility] Work Phone: Comment on above: PATIENT WAS FASTINGP ERFORMED BY: [facility] Jcyzed3001 [address] RoadDublin [place] [id number] T3, FREE (TRIDOTHYRONINE) ([id number])Ordered By: Casing Finisher And Stuffer on 05-10-2014 T3 free mass conc 3.8 pg/mL Normal 2.0-4.4 Compreh ensive Internal Medicine Work Phone: Comment on above: PATIENT WAS FASTINGP ERFORMED BY: [facility] Qnkjlw3107 [address]Dublin [place] [id number] T4, FREE (THYROXINE) ([id number]) Ordered By: Casing Finisher And Stuffer on 05-10-2014 T4 free mass conc 1.28 ng/dL Normal 0.82-1.77 Compreh ensive Internal Medicine Work Phone: Comment on above: PATIENT WAS FASTINGP ERFORMED BY: [facility] Pjcddq0630 [address] RoadDublin [place] [id number] TSH ([id number])Ordered By: Syste m Wheat Grower on 05-10-2014 Thyrotropin Qn 1.570 {uIU/mL} Normal 0.450-4.500 Compr ehensive Internal Medicine Work Phone: Comment on above: PATIENT WAS FASTINGP ERFORMED BY: [facility] Nhksba9132 [address]neill RoadDublin [place] [id number] URINALYSIS, W/ MICRO ([id number]) Ordered By: Casing Finisher And Stuffer on 05-10-2014 Appearance Nom (U) Clear Normal Compre hensive Internal Medicine Work Phone: Comment on above: PATIENT WAS FASTINGP ERFORMED BY: BALJINDER LabRyne SpragueWfmfay6461 [address]ill RoadDublin [place] [id number] Bilirubin Ql (U) Negative Normal Comprehe nsive Internal Medicine Work Phone: Comment on above: PATIENT WAS FASTINGP ERFORMED BY: BALJINDER LabRyne SpragueDhoibh1131 [address]ill RoadDublin [place] [id number] Bilirubin Ql (U) Negative Normal Comprehe nsive Internal Medicine; [facility] Work Phone: Comment on above: PATIENT WAS FASTINGP ERFORMED BY: BALJINDER Spraguelin6370 [address] RoadDublin [place] [id number] Color Nom (U) Yellow Normal Comprehensi ve Internal Medicine Work Phone: Comment on above: PATIENT WAS FASTINGP ERFORMED BY: BALJINDER Spraguelin6370 [address]Dublin [place] [id number] Glucose Ql (U) Negative Normal Comprehens stacy Internal Medicine Work Phone: Comment on above: PATIENT WAS FASTINGP ERFORMED BY: BALJINDER Spraguelin6370 [address]Dublin [place] [id number] Glucose Ql (U) Negative Normal Comprehens stacy Internal Medicine; [facility] Work Phone: Comment on above: PATIENT WAS FASTINGP ERFORMED BY: BALJINDER Spraguelin6370 [address]Dublin [place] [id number] Hemoglobin Ql (U) Negative Normal Compreh ensive Internal Medicine Work Phone: Comment on above: PATIENT WAS FASTINGP ERFORMED BY: BALJINDER LabColilliam SpragueZjktnp8673 [address]Dublin [place] [id number] Hemoglobin Ql (U) Negative Normal Compreh ensive Internal Medicine; [facility] Work Phone: Comment on above: PATIENT WAS FASTINGP ERFORMED BY: BALJINDER LabColilliam SpragueRbybgv5535 [address] RoadDublin [place] [id number] Hemoglobin Test strip Ql (U) Negative Normal [facility] Work Phone: Ketones Ql (U) Negative Normal Comprehens stacy Internal Medicine Work Phone: Comment on above: PATIENT WAS FASTINGP ERFORMED BY: BALJINDER [facility] Yqgrqy1938 [address]Dublin [place] [id number] Ketones Ql (U) Negative Normal Comprehens stacy Internal Medicine; [facility] Work Phone: Comment on above: PATIENT WAS FASTINGP ERFORMED BY: BALJINDER [facility] Srwscg5763 [address] RoadDublin [place] [id number] Leukocyte esterase Test strip Ql (U) 1+ Abnormal [facility] Work Phone: Comment on above: PATIENT WAS FASTINGP ERFORMED BY: BALJINDER [facility] Kdrssm4521 [address] RoadDublin [place] [id number] Microscopic observation LM Nom (Urine sed) See below: Normal [facility] Work Phone: Comment on above: Microscopic was naomi cated and was performed. PATIENT WAS FASTINGP ERFORMED BY: BALJINDER [facility] Enmnbl5183 [address]ill RoadDublin [place] [id number] Nitrite Ql (U) Negative Normal Comprehens stacy Internal Medicine Work Phone: Comment on above: PATIENT WAS FASTINGP ERFORMED BY: BALJINDER [facility] Bjqndi4613 [address] RoadDublin [place] [id number] Nitrite Ql (U) Negative Normal Comprehens stacy Internal Medicine; [facility] Work Phone: Comment on above: PATIENT WAS FASTINGP ERFORMED BY: BALJINDER [facility] Yodpwn2921 [address] RoadDublin [place] [id number] Nitrite Test strip Ql (U) Negative Normal [facility] Work Phone: pH (U) 6.0 [pH] Normal 5.0-7.5 [facility] Work Phone: Comment on above: PATIENT WAS FASTINGP ERFORMED BY: [facility] Etlwii6315 [address]Dublin [place] [id number] pH Test strip (U) 6.0 [pH] Normal 5.0-7.5 Compreh ensive Internal Medicine Work Phone: Protein Ql (U) Negative Normal Comprehens stacy Internal Medicine Work Phone: Comment on above: PATIENT WAS FASTINGP ERFORMED BY: [facility] Plrspf3700 [address]Dublin [place] [id number] Protein Ql (U) Negative Normal Comprehens stacy Internal Medicine; [facility] Work Phone: Comment on above: PATIENT WAS FASTINGP ERFORMED BY: [facility] Vroibb6007 [address]Dublin [place] [id number] Protein Test strip Ql (U) Negative Normal [facility] Work Phone: Specific gravity Relative Density (U) 1.012 1 Normal 1.005-1.030 Comprehensi ve Internal Medicine Work Phone: Comment on above: PATIENT WAS FASTINGP ERFORMED BY: [facility] Tstvss0369 [address]Dublin [place] [id number] Urobilinogen (U) [Mass/Vol] 0.2 mg/dL Normal 0.0-1.9 [facility]; [facility] Work Phone: Comment on above: PATIENT WAS FASTINGP ERFORMED BY: [facility] Zdusae4[address]Dublin [place] [id number] Urobilinogen Test strip mass conc (U) 0.2 mg/dL Normal 0.0-1.9 Comprehensiv e Internal Medicine Work Phone: Comment on above: PATIENT WAS FASTINGP ERFORMED BY: [facility] Bdlqsp8457 [address] RoadDublin [place] [id number] PPD (71809)Ordered By: Miky Lomax on 05-03-2013 PPD (53540) Negative Normal [facility] Work Phone: Comment on above: Lot:[id number]:05/2014 Dose:0.1mgRoute:idSite:kj Sousa By:LEONIE signedpt will be back on 05/05/12 around 3:30pm to read PPD (30520) Negative Normal [facility]; [facility] Work Phone: Comment on above: Lot:[id number]:05/2014 Dose:0.1mgRoute:idSite:kj Merry By:LEONIE signedpt will be back on 05/05/12 around 3:30pm to read CBC & PLATELETS (AUTO) (8502 7)Ordered By: Casing Finisher And Stuffer on 01-29-2013 Erythrocyte distribution width Auto Ratio (RBC) 13.2 % Normal 12.3-15.4 [facility] Work Phone: Erythrocyte distribution width Ratio (RBC) 13.2 % Normal 12.3-15.4 [facility] Work Phone: Comment on above: PATIENT NOT FASTINGP ERFORMED BY: BALJINDER [employer] Kdavkf8173 [facility] [id number] Information: [id number] Hematocrit Auto Volume Fraction (Bld) 40.7 % Normal 34.0-46.6 [facility] Work Phone: Hematocrit Volume Fraction (Bld) 40.7 % Normal 34.0-46.6 [facility] Work Phone: Comment on above: PATIENT NOT FASTINGP ERFORMED BY: BALJINDER Viridis LearningRaritan Bay Medical Center, Old BridgeMzmabv0276 [facility] [id number] Information: [id number] Hemoglobin mass conc (Bld) 13.8 g/dL Normal 11.1-15.9 [facility] Work Phone: Comment on above: PATIENT NOT FASTINGP ERFORMED BY: [employer] Elnhdu2104 [facility] [id number] Information: [id number] MCH Auto Entitic mass (RBC) 28.3 pg Normal 26.6-33.0 [facility] Work Phone: MCH Entitic mass (RBC) 28.3 pg Normal 26.6-33.0 [facility] Internal Medicine Work Phone: Comment on above: PATIENT NOT FASTINGP ERFORMED BY: BALJINDER [facility]6370 [facility] [id number] Information: [id number] MCHC Auto mass conc (RBC) 33.9 g/dL Normal 31.5-35.7 [facility] Work Phone: MCHC mass conc (RBC) 33.9 g/dL Normal 31.5-35.7 Comp rehensive Internal Medicine Work Phone: Comment on above: PATIENT NOT FASTINGP ERFORMED BY: [address] [id number] Information: [id number] MCV Auto Entitic volume (RBC) 83 fL Normal 79-97 [facility] Work Phone: MCV Entitic volume (RBC) 83 fL Normal 79-97 [facility] Work Phone: Comment on above: PATIENT NOT FASTINGP ERFORMED BY: [address] [id number] Information: [id number] Platelets #/vol (Bld) 293 {x10E3/uL} Normal 155-379 [facility] Work Phone: Comment on above: PATIENT NOT FASTINGP ERFORMED BY: [place] [address]118270 [facility] [id number] Information: [id number] Platelets (Bld) [#/Vol] 293 10*3/uL Normal 155-379 [facility]; [facility] Work Phone: Comment on above: PATIENT NOT FASTINGP ERFORMED BY: [place] 3118270 [facility] [id number] Information: [id number] Platelets Auto #/vol (Bld) 293 {x10E3/uL} Normal 155-379 [facility] Work Phone: RBC #/vol (Bld) 4.88 {x10E6/uL} Normal 3.77-5.28 Comp rehensive Internal Medicine Work Phone: Comment on above: PATIENT NOT FASTINGP ERFORMED BY: BALJINDER LabColilliam TobinEaxkaq3494 [facility] [id number] Information: [id number] RBC (Bld) [#/Vol] 4.88 10*6/uL Normal 3.77-5.28 [facility] Internal Medicine; [facility] Work Phone: Comment on above: PATIENT NOT FASTINGP ERFORMED BY: BALJINDER [facility] Vbawuz4031 [facility] [id number] Information: [id number] RBC Auto #/vol (Bld) 4.88 {x10E6/uL} Normal 3.77-5.28 [facility] Work Phone: WBC #/vol (Bld) 6.7 {x10E3/uL} Normal 3.4-10.8 [facility] Internal Medicine Work Phone: Comment on above: PATIENT NOT FASTINGP ERFORMED BY: BALJINDER LabColilliam SpragueXieqyh3394 [facility] [id number] Information: [id number] WBC (Bld) [#/Vol] 6.7 10*3/uL Normal 3.4-10.8 [facility]; [facility] Internal Medicine Work Phone: Comment on above: PATIENT NOT FASTINGP ERFORMED BY: BALJINDER [facility] Ojfxnh1281 [facility] [id number] Information: [id number] WBC Auto #/vol (Bld) 6.7 {x10E3/uL} Normal 3.4-10.8 [facility] Internal Medicine Work Phone: PROLACTIN (73371)Ordered By: Casing Finisher And Stuffer on 01-29-2013 Prolactin mass conc 8.9 ng/mL Normal 4.8-23.3 [facility] Internal Medicine Work Phone: Comment on above: PATIENT NOT FASTINGP ERFORMED BY: BALJINDER [facility] Ngkycv6814 [facility] [id number] PT/INR, Office (84010)Ordere d By: Casing Finisher And Stuffer on 01-29-2013 INR Coag RelTime (PPP) 1.0 {INR} Normal 0.8-1.2 [facility] Internal Medicine Work Phone: Comment on above: Reference interval i s for non-anticoagulated patients. . Suggested INR therapeutic range for Vitamin K antagonist therapy: Standard Dose (moderate intensity therapeutic range): 2.0 - 3.0 Higher intensity therapeutic range 2.5 - 3.5 PATIENT NOT FASTINGP ERFORMED BY: [facility]Dublin [place] [id number] Prothrombin time (PT) Coag time (PPP) 10.9 {sec} Normal 9.1-12.0 [facility] Work Phone: Comment on above: PATIENT NOT FASTINGP ERFORMED BY: [facility]Dublin [place] [id number] PT Coag (PPP) [Time] 10.9 s Normal 9.1-12.0 [facility]erens[facility]; [facility] Internal Medicine Work Phone: Comment on above: PATIENT NOT FASTINGP ERFORMED BY: [facility]Dublin [place] [id number] PTT (ACTIVATED PARTIAL THROM BOPLASTIN TIME) (88756)Ordered By: Casing Finisher And Stuffer on 01-29-2013 aPTT Coag (PPP) [Time] 32 s Normal 24-33 [facility] Internal Medicine; [facility] Work Phone: Comment on above: This test has not be en validated for monitoring unfractionated heparintherapy. aPTT-based therapeutic ranges for unfractionated heparintherapy have not been established. For general guidelines onHeparin monitoring, refer to the [facility] Directory of Services. PATIENT NOT FASTINGP ERFORMED BY: [facility]Dublin [place] [id number] aPTT Coag time (Bld) 32 {sec} Normal 24-33 [facility] Internal Medicine Work Phone: Comment on above: This test has not be en validated for monitoring unfractionated heparintherapy. aPTT-based therapeutic ranges for unfractionated heparintherapy have not been established. For general guidelines onHeparin monitoring, refer to the [facility] Directory of Services. aPTT Coag time (PPP) 32 {sec} Normal 24-33 [facility] Internal Medicine Work Phone: Comment on above: This test has not be en validated for monitoring unfractionated heparintherapy. aPTT-based therapeutic ranges for unfractionated heparintherapy have not been established. For general guidelines onHeparin monitoring, refer to the [facility] Directory of Services. PATIENT NOT FASTINGP ERFORMED BY: [facility]6370 [facility] [id number] TSH (THYROID STIMULATING HOR BRANDON) (17744)Ordered By: Casing Finisher And Stuffer on 01-29-2013 Thyrotropin Qn 1.950 {uIU/mL} Normal 0.450-4.500 [facility] Internal Medicine Work Phone: Comment on above: PATIENT NOT FASTINGP ERFORMED BY: [facility]6370 [facility] [id number] Thin prep Pap (96365)Ordered By: Casing Finisher And Stuffer on 01-22-2013 Microscopic observation Other stain Nom (Unsp spec) . Normal Comprehens stacy Internal Medicine Work Phone: Comment on above: Source.............C ervical;EndocervicalNo. of containers..01 CYTYC Thin Prep VialPATIENT NOT FASTINGPERFORMED BY: [employer] [address] [id number] Information: [id number] Pathology report final diagnosis Narrative SPRCS Normal Comprehensiv e Internal Medicine Work Phone: Comment on above: NEGATIVE FOR INTRAEP ITHELIAL LESION AND MALIGNANCY.Satisfactory for evaluation. Endocervical and/or squamous metaplasticcells (endocervical component) are present.625.3 ; DysmenorrheaJacob Trini, Sr. Payroll Processor (ASCP) Source.............C ervical;EndocervicalNo. of containers..01 CYTYC Thin Prep VialPATIENT NOT FASTINGPERFORMED BY: [facility] [address] [id number] Information: [id number] Thin prep Pap (70434) PAPSMR Normal Com prehensive Internal Medicine Work Phone: Comment on above: The Pap smear is a s creening test designed to aid in the detection ofpremalignant and malignant conditions of the uterine cervix. It is not adiagnostic procedure and should not be used as the sole means of detectingcervical cancer. Both false-positive and false-negative reports do occur. .This liquid based ThinPrep(R) pap test was screened with theuse of an image guided system.The HPV DNA reflex criteria were not met with this specimen resulttherefore, no HPV testing was performed. . Source.............C ervical;EndocervicalNo. of containers..01 CYTYC Thin Prep VialPATIENT NOT FASTINGPERFORMED BY: [employer] [id number] Information: [id number] Rapid Flu (34636 x 2)Ordered By: Priscilla Tuttle on 06-09-2012 FLUAV Ag IA Ql (Throat) Negative Normal [facility] Work Phone: FLUAV Ag IA Ql (Throat) Negative Normal [facility]; [facility] Work Phone: Rapid Flu (44350 x 2)Ordered By: Rosanna Scales on 04-27-2012 FLUAV Ag IA Ql (Throat) Positive Normal [facility] Work Phone: FLUAV Ag IA Ql (Throat) Positive Normal [facility]; [facility] Work Phone: ROD (ANTINUCLEAR ANTIBODY) ( 57019)Ordered By: Casing Finisher And Stuffer on 01-17-2012 Nuclear Ab Ql (S) Negative Normal Compreh ensive Internal Medicine Work Phone: Comment on above: PATIENT WAS FASTINGP ERFORMED BY: Viridis LearningRaritan Bay Medical Center, Old BridgeVtarex7050 [facility] [id number] Nuclear Ab Ql (S) Negative Normal Compreh ensive Internal Medicine; [facility] Work Phone: Comment on above: PATIENT WAS FASTINGP ERFORMED BY: [facility]6370 [facility] [id number] C-REACTIVE PROTEIN (48897)Or dered By: Casing Finisher And Stuffer on 01-17-2012 CRP mass conc 0.5 mg/L Normal 0.0-4.9 Comprehensi ve Internal Medicine Work Phone: Comment on above: PATIENT WAS FASTINGP ERFORMED BY: [address] [id number] CBC WITH MANUAL DIFF (56592) Ordered By: Casing Finisher And Stuffer on 01-17-2012 Basophils #/vol (Bld) 0.0 {x10E3/uL} Normal 0.0-0.2 [facility] Work Phone: Comment on above: PATIENT WAS FASTINGP ERFORMED BY: [facility]6370 [facility] [id number] Information: [id number] Basophils (Bld) [#/Vol] 0.0 10*3/uL Normal 0.0-0.2 [facility]; [facility] Work Phone: Comment on above: PATIENT WAS FASTINGP ERFORMED BY: [facility]6370 [facility] [id number] Information: [id number] Basophils Auto #/vol (Bld) 0.0 {x10E3/uL} Normal 0.0-0.2 [facility] Work Phone: Basophils/100 WBC (Bld) 0 % Normal 0-3 [facility] Work Phone: Comment on above: PATIENT WAS FASTINGP ERFORMED BY: [facility]6370 [facility] [id number] Information: [id number] Basophils/100 WBC Auto (Bld) 0 % Normal 0-3 [facility] Work Phone: Eosinophils #/vol (Bld) 0.6 {x10E3/uL} Abnormal 0.0-0.4 [facility] Work Phone: Comment on above: PATIENT WAS FASTINGP ERFORMED BY: [place] 3118270 [facility] [id number] Information: [id number] Eosinophils (Bld) [#/Vol] 0.6 10*3/uL Abnormal 0.0-0.4 [facility]; [facility] Work Phone: Comment on above: PATIENT WAS FASTINGP ERFORMED BY: [place] 3118270 [facility] [id number] Information: [id number] Eosinophils Auto #/vol (Bld) 0.6 {x10E3/uL} Abnormal 0.0-0.4 [facility] Work Phone: Eosinophils/100 WBC (Bld) 7 % Normal 0-7 [facility] Work Phone: Comment on above: PATIENT WAS FASTINGP ERFORMED BY: [facility]6370 [facility] [id number] Information: [id number] Eosinophils/100 WBC Auto (Bld) 7 % Normal 0-7 [facility] Work Phone: Erythrocyte distribution width Auto Ratio (RBC) 13.7 % Normal 12.3-15.4 [facility] Work Phone: Erythrocyte distribution width Ratio (RBC) 13.7 % Normal 12.3-15.4 [facility] Work Phone: Comment on above: PATIENT WAS FASTINGP ERFORMED BY: [facility]6370 [facility] [id number] Information: [id number] Hematocrit Auto Volume Fraction (Bld) 41.1 % Normal 34.0-46.6 [facility] Work Phone: Hematocrit Volume Fraction (Bld) 41.1 % Normal 34.0-46.6 [facility] Work Phone: Comment on above: PATIENT WAS FASTINGP ERFORMED BY: [facility]6370 [facility] [id number] Information: [id number] Hemoglobin mass conc (Bld) 13.4 g/dL Normal 11.1-15.9 [facility] Work Phone: Comment on above: PATIENT WAS FASTINGP ERFORMED BY: [address] [id number] Information: [id number] Immature granulocytes #/vol (Bld) 0.0 {x10E3/uL} Normal 0.0-0.1 [facility] Work Phone: Comment on above: PATIENT WAS FASTINGP ERFORMED BY: [address] [id number] Information: [id number] Immature granulocytes (Bld) [#/Vol] 0.0 10*3/uL Normal 0.0-0.1 [facility]; [facility] Work Phone: Comment on above: PATIENT WAS FASTINGP ERFORMED BY: [address] [id number] Information: [id number] Immature granulocytes/100 WBC (Bld) 0 % Normal 0-2 [facility] Work Phone: Comment on above: PATIENT WAS FASTINGP ERFORMED BY: [address] [id number] Information: [id number] Lymphocytes #/vol (Bld) 2.3 {x10E3/uL} Normal 0.7-4.5 [facility] Work Phone: Comment on above: PATIENT WAS FASTINGP ERFORMED BY: [place] 3118270 [facility] [id number] Information: [id number] Lymphocytes (Bld) [#/Vol] 2.3 10*3/uL Normal 0.7-4.5 [facility]; [facility] Work Phone: Comment on above: PATIENT WAS FASTINGP ERFORMED BY: [facility]6370 [facility] [id number] Information: [id number] Lymphocytes Auto #/vol (Bld) 2.3 {x10E3/uL} Normal 0.7-4.5 [facility] Work Phone: Lymphocytes/100 WBC (Bld) 30 % Normal 14-46 [facility] Work Phone: Comment on above: PATIENT WAS FASTINGP ERFORMED BY: [place] 3118270 [facility] [id number] Information: [id number] Lymphocytes/100 WBC Auto (Bld) 30 % Normal 14-46 [facility] Work Phone: MCH Auto Entitic mass (RBC) 27.3 pg Normal 26.6-33.0 [facility] Work Phone: MCH Entitic mass (RBC) 27.3 pg Normal 26.6-33.0 [facility] Internal Medicine Work Phone: Comment on above: PATIENT WAS FASTINGP ERFORMED BY: [address] [id number] Information: [id number] MCHC Auto mass conc (RBC) 32.6 g/dL Normal 31.5-35.7 [facility] Work Phone: MCHC mass conc (RBC) 32.6 g/dL Normal 31.5-35.7 [facility] Internal Medicine Work Phone: Comment on above: PATIENT WAS FASTINGP ERFORMED BY: [facility]6370 [facility] [id number] Information: [id number] MCV Auto Entitic volume (RBC) 84 fL Normal 79-97 [facility] Work Phone: MCV Entitic volume (RBC) 84 fL Normal 79-97 [facility] Work Phone: Comment on above: PATIENT WAS FASTINGP ERFORMED BY: [facility]6370 [facility] [id number] Information: [id number] Monocytes #/vol (Bld) 0.6 {x10E3/uL} Normal 0.1-1.0 [facility] Work Phone: Comment on above: PATIENT WAS FASTINGP ERFORMED BY: [address] [id number] Information: [id number] Monocytes (Bld) [#/Vol] 0.6 10*3/uL Normal 0.1-1.0 [facility]; [facility] Work Phone: Comment on above: PATIENT WAS FASTINGP ERFORMED BY: [place] 3118270 [facility] [id number] Information: [id number] Monocytes Auto #/vol (Bld) 0.6 {x10E3/uL} Normal 0.1-1.0 [facility] Work Phone: Monocytes/100 WBC (Bld) 8 % Normal - [facility] Work Phone: Comment on above: PATIENT WAS FASTINGP ERFORMED BY: [facility]6370 [facility] [id number] Information: [id number] Monocytes/100 WBC Auto (Bld) 8 % Normal -13 [facility] Work Phone: Neutrophils #/vol (Bld) 4.3 {x10E3/uL} Normal 1.8-7.8 [facility] Work Phone: Comment on above: PATIENT WAS FASTINGP ERFORMED BY: [address] [id number] Information: [id number] Neutrophils (Bld) [#/Vol] 4.3 10*3/uL Normal 1.8-7.8 [facility]; [facility] Work Phone: Comment on above: PATIENT WAS FASTINGP ERFORMED BY: BALJINDER [facility]6370 [facility] [id number] Information: [id number] Neutrophils Auto #/vol (Bld) 4.3 {x10E3/uL} Normal 1.8-7.8 [facility] Work Phone: Neutrophils/100 WBC (Bld) 55 % Normal 40-74 [facility] Work Phone: Comment on above: PATIENT WAS FASTINGP ERFORMED BY: [place] 3118270 [facility] [id number] Information: [id number] Neutrophils/100 WBC Auto (Bld) 55 % Normal 40-74 [facility] Work Phone: Platelets #/vol (Bld) 259 {x10E3/uL} Normal 140-415 [facility] Work Phone: Comment on above: PATIENT WAS FASTINGP ERFORMED BY: BALJINDER [place] [id number] [facility] [id number] Information: [id number] Platelets (Bld) [#/Vol] 259 10*3/uL Normal 140-415 [facility]; [facility] Work Phone: Comment on above: PATIENT WAS FASTINGP ERFORMED BY: [place]ri [place] [id number] [facility] [id number] Information: [id number] Platelets Auto #/vol (Bld) 259 {x10E3/uL} Normal 140-415 [facility] Work Phone: RBC #/vol (Bld) 4.91 {x10E6/uL} Normal 3.77-5.28 Comp [facility] Internal Medicine Work Phone: Comment on above: PATIENT WAS FASTINGP ERFORMED BY: [facility]6370 [facility] [id number] Information: [id number] RBC (Bld) [#/Vol] 4.91 10*6/uL Normal 3.77-5.28 Compr ehensive Internal [facility]; [facility] Work Phone: Comment on above: PATIENT WAS FASTINGP ERFORMED BY: BALJINDER Spraguelin6370 [facility] [id number] Information: [id number] RBC Auto #/vol (Bld) 4.91 {x10E6/uL} Normal 3.77-5.28 [facility] Internal Medicine Work Phone: WBC #/vol (Bld) 7.8 {x10E3/uL} Normal 4.0-10.5 [facility] Internal Medicine Work Phone: Comment on above: PATIENT WAS FASTINGP ERFORMED BY: BALJINDER Spraguelin6370 [facility] [id number] Information: [id number] WBC (Bld) [#/Vol] 7.8 10*3/uL Normal 4.0-10.5 [facility] Internal Medicine; [facility] Work Phone: Comment on above: PATIENT WAS FASTINGP ERFORMED BY: BALJINDER Spraguelin6370 [facility] [id number] Information: [id number] WBC Auto #/vol (Bld) 7.8 {x10E3/uL} Normal 4.0-10.5 [facility] Internal Medicine Work Phone: Creatine Kinase Total ([id number] )Ordered By: Casing Finisher And Stuffer on 01-17-2012 CK enzyme act/vol 67 U/L Normal 24-173 [facility] Internal Medicine Work Phone: Comment on above: PATIENT WAS FASTINGP ERFORMED BY: BALJINDER [place] [id number] [facility] [id number] LIPID PANEL ([id number])Ordered B y: C[employer] Finisher [employer] Stuffer on 01-17-2012 Cholesterol in HDL mass conc 58 mg/dL Normal [facility] Internal Medicine Work Phone: Comment on above: According to ATP-III Guidelines, HDL-C >59 mg/dL is considered anegative risk factor for CHD. PATIENT WAS FASTINGP ERFORMED BY: CB [facility] Npwuta9613 [address]Dublin [place] [id number] Cholesterol in LDL mass conc 74 mg/dL Normal 0-109 [facility] Work Phone: Comment on above: Please note refere nce interval change PATIENT WAS FASTINGP ERFORMED BY: CB [facility] Xlumqk1291 [address]Dublin [place] [id number] Cholesterol in LDL/Cholesterol in HDL mass ratio 1.3 {ratio_units} Normal 0.0-3.2 [facility] Work Phone: Comment on above: PATIENT WAS FASTINGP ERFORMED BY: CB [facility] Smffqr6441 [address]Dublin [place] [id number] Cholesterol in VLDL mass conc 14 mg/dL Normal 5-40 [facility] Work Phone: Comment on above: PATIENT WAS FASTINGP ERFORMED BY: BALJINDER [facility] Sxbdyb4632 [address]Dublin [place] [id number] Cholesterol mass conc 146 mg/dL Normal 100-169 Com prehensive Internal Medicine Work Phone: Comment on above: Please note refere nce interval change PATIENT WAS FASTINGP ERFORMED BY: BALJINDER [facility] Ivxvyl1771 [address]Dublin [place] [id number] Triglyceride mass conc 70 mg/dL Normal 0-89 [facility] Work Phone: Comment on above: Please note refere nce interval change PATIENT WAS FASTINGP ERFORMED BY: BALJINDER [facility] Sddrjn2436 [address]Dublin [place] [id number] METABOLIC PANEL, COMPREHENSI VE ([id number])Ordered By: Casing Finisher And Stuffer on 01-17-2012 Albumin mass conc 4.5 g/dL Normal 3.5-5.5 [facility] Internal [facility] Work Phone: Comment on above: PATIENT WAS FASTINGP ERFORMED BY: CB [facility] Zhrqft2480 [address]Dublin [place] [id number] Albumin/Globulin mass ratio 1.7 {ratio} Normal 1.1-2.5 [facility] Work Phone: Comment on above: PATIENT WAS FASTINGP ERFORMED BY: BALJINDER [facility] Hkjtlf8806 [address]Dublin [place] [id number] ALP [Catalytic activity/Vol] 91 U/L Normal 45-300 [facility] Internal Medicine; [facility] Internal Medicine Work Phone: Comment on above: PATIENT WAS FASTINGP ERFORMED BY: BALJINDER [facility] Dkkplv0442 [address]Dublin [place] [id number] ALP enzyme act/vol 91 [iU]/L Normal 45-300 [facility] Internal Medicine Work Phone: Comment on above: PATIENT WAS FASTINGP ERFORMED BY: CB [facility] Pgicsc5661 [address]Dublin [place] [id number] ALT [Catalytic activity/Vol] 9 U/L Normal 0-40 [facility] Internal Medicine; [facility] Internal Medicine Work Phone: Comment on above: PATIENT WAS FASTINGP ERFORMED BY: BALJINDER [facility] Cqkjse7836 [address]Dublin [place] [id number] ALT enzyme act/vol 9 [iU]/L Normal 0-40 [facility] Internal Medicine Work Phone: Comment on above: PATIENT WAS FASTINGP ERFORMED BY: BALJINDER [facility] Zoafor4562 [address]Dublin [place] [id number] AST [Catalytic activity/Vol] 12 U/L Normal 0-40 [facility] Internal Medicine; [facility] Internal Medicine Work Phone: Comment on above: PATIENT WAS FASTINGP ERFORMED BY: CB [facility] Jkqbjj3599 [address]Dublin [place] [id number] AST enzyme act/vol 12 [iU]/L Normal 0-40 [facility] Internal Medicine Work Phone: Comment on above: PATIENT WAS FASTINGP ERFORMED BY: CB [facility] Uxgjcw2711 [address]Dublin [place] [id number] Bilirubin mass conc 0.5 mg/dL Normal 0.0-1.2 [facility] Internal Medicine Work Phone: Comment on above: PATIENT WAS FASTINGP ERFORMED BY: CB [facility] Uockno5786 [address]Dublin [place] [id number] Calcium mass conc 9.9 mg/dL Normal 8.7-10.2 Compreh ensive Internal Medicine Work Phone: Comment on above: PATIENT WAS FASTINGP ERFORMED BY: BALJINDER Spraguelin6370 [facility] [id number] Chloride molar conc 104 mmol/L Normal 97-108 Compr ensive Internal Medicine Work Phone: Comment on above: PATIENT WAS FASTINGP ERFORMED BY: LabCoRar[facility], Old BridgeHewchi1983 [facility] [id number] CO2 molar conc 22 mmol/L Normal 20-32 Comprehens stacy Internal Medicine Work Phone: Comment on above: PATIENT WAS FASTINGP ERFORMED BY: BALJINDER Shay Fytwfb6456 [facility] [id number] Creatinine mass conc 0.70 mg/dL Normal 0.57-1.00 [facility] Work Phone: Comment on above: PATIENT WAS FASTINGP ERFORMED BY: [facility] Loeorp1740 [facility] [id number] GFR/1.73 sq M predicted among blacks CKD-EPI vol rate/area (S/P/Bld) 146 mL/min/1.73 Normal [facility] Work Phone: Comment on above: PATIENT WAS FASTINGP ERFORMED BY: [facility]6370 [facility] [id number] GFR/1.73 sq M predicted among non-blacks CKD-EPI vol rate/area (S/P/Bld) 127 mL/min/1.73 Normal Comprehensiv e Internal Medicine Work Phone: Comment on above: PATIENT WAS FASTINGP ERFORMED BY: [facility] Yomoyl5435 [facility] [id number] Globulin Calculated mass conc (S) 2.6 g/dL Normal 1.5-4.5 [facility] Work Phone: Globulin mass conc (S) 2.6 g/dL Normal 1.5-4.5 Co mprehensive Internal Medicine Work Phone: Comment on above: PATIENT WAS FASTINGP ERFORMED BY: BALJINDER Tobin[address] [facility] [id number] Glucose mass conc 90 mg/dL Normal 65-99 Compreh ensive Internal Medicine Work Phone: Comment on above: PATIENT WAS FASTINGP ERFORMED BY: BALJINDER Tobin[address] [facility] [id number] Potassium molar conc 4.6 mmol/L Normal 3.5-5.2 Comp [facility] Work Phone: Comment on above: PATIENT WAS FASTINGP ERFORMED BY: BALJINDER Tobin6370 [facility] [id number] Protein mass conc 7.1 g/dL Normal 6.0-8.5 Compreh ensive Internal Medicine Work Phone: Comment on above: PATIENT WAS FASTINGP ERFORMED BY: BALJINDER Tobin6370 [facility] [id number] Sodium molar conc 141 mmol/L Normal 134-144 Compreh ensive Internal Medicine Work Phone: Comment on above: PATIENT WAS FASTINGP ERFORMED BY: BALJINDER Tobin6370 [facility] [id number] Urea nitrogen mass conc 9 mg/dL Normal 6-20 [facility] Work Phone: Comment on above: PATIENT WAS FASTINGP ERFORMED BY: BALJINDER Tobin6370 [facility] [id number] Urea nitrogen/Creatinine mass ratio 13 mg/mg Normal 8-20 [facility] Work Phone: Comment on above: PATIENT WAS FASTINGP ERFORMED BY: BALJINDER Spraguelin6370 [facility] [id number] RHEUMATOID FACTOR-QUANT (428 99)Ordered By: Casing Finisher And Stuffer on 01-17-2012 Rheumatoid factor Qn 10.3 {IU/mL} Normal 0.0-13.9 [facility]alehens[facility] Internal [facility] Work Phone: Comment on above: PATIENT WAS FASTINGP ERFORMED BY: CB [facility] Guwmsj3746 [address] RoadDublin [place] [id number] Rheumatoid factor Qn 10.3 [IU]/mL Normal 0.0-13.9 [facility]; [facility] Work Phone: Comment on above: PATIENT WAS FASTINGP ERFORMED BY: CB [facility] Qizwxh3891 [address] RoadDublin [place] [id number] SED RATE ERYTHROCYTE ([id number]) Ordered By: Casing Finisher And Stuffer on 01-17-2012 ESR Velocity (Bld) 4 mm/h Normal 0-32 [facility] Internal Medicine Work Phone: Comment on above: PATIENT WAS FASTINGP ERFORMED BY: [email or web address] [email or web address] [address] RoadDuin [place] [id number] TSH ([id number])Ordered By: Syste m Wheat Grower on 01-17-2012 Thyrotropin Qn 0.933 {uIU/mL} Normal 0.450-4.500 [facility] Internal Medicine Work Phone: Comment on above: PATIENT WAS FASTINGP ERFORMED BY: [email or web address] [facility] [id number] Culture, urine Bacteria identified Cx Nom (U) Positive [facility] Work Phone: Vital Signs Date Time Vital Sign Value Performing Clinician Facility 11-10-2024 13:55-0400 Body height 162.[address] Rosanna Scales DO Work Phone: [facility] 11-10-2024 13:54-0400 Body mass index (BMI) [Ratio] 39.8 kg/m2 Dr. Rosanna Scales DO Work Phone: [facility] 11-10-2024 13:54-0400 Body weight 105.[address] Rosanna Scales DO Work Phone: [facility] 11-10-2024 13:54-0400 Diastolic blood pressure 102 mm[Hg] Dr. Rosanna Scales DO Work Phone: [facility] 11-10-2024 13:54-0400 Systolic blood pressure 145 mm[Hg] Dr. Rosanna Scales DO Work Phone: [facility] 11-04-2024 15:18-0400 Diastolic blood pressure 85 mm[Hg] Dr. Rosanna Scales DO Work Phone: [facility] 11-04-2024 15:18-0400 Systolic blood pressure 130 mm[Hg] Dr. Rosanna Scales DO Work Phone: [facility] 11-04-2024 11:58-0400 Body height 162.[address] Rosanna Scales DO Work Phone: [facility] 10-29-2024 08:30-0400 Body temperature 98.4 [degF] Dr. Rosanna Scales DO Work Phone: [facility] 10-29-2024 08:30-0400 Diastolic blood pressure 95 mm[Hg] Dr. Rosanna Scales DO Work Phone: [facility] 10-29-2024 08:30-0400 Heart rate 104 /min Dr. Rosanna Scales DO Work Phone: [facility] 10-29-2024 08:30-0400 Respiratory rate 16 /min Dr. Rosanna Scales DO Work Phone: [facility] 10-29-2024 08:30-0400 Systolic blood pressure 147 mm[Hg] Dr. Rosanna Scales DO Work Phone: [facility] 10-29-2024 06:31-0400 SaO2% (BldA) [Mass fraction] 99 % Dr. Rosanna Scales DO Work Phone: [facility] 10-28-2024 19:07-0400 Body height 162.[address] Rosanna Scales DO Work Phone: [facility] 10-28-2024 19:07-0400 Body mass index (BMI) [Ratio] 42.2 kg/m2 Dr. Rosanna Scales DO Work Phone: [facility] 10-28-2024 19:07-0400 Body weight 111.[address] Rosanna Scales DO Work Phone: [facility] 10-26-2024 14:04-0400 Body height 162.[address] Rosanna Scales DO Work Phone: [facility] 10-26-2024 13:58-0400 Body mass index (BMI) [Ratio] 42.7 kg/m2 Dr. Rosanna Scales DO Work Phone: [facility] 10-26-2024 13:58-0400 Body weight 112.[address] Rosanna Scales DO Work Phone: [facility] 10-26-2024 13:58-0400 Diastolic blood pressure 83 mm[Hg] Dr. Rosanna Scales DO Work Phone: [facility] 10-26-2024 13:58-0400 Systolic blood pressure 127 mm[Hg] Dr. Rosanna Scales DO Work Phone: [facility] 10-13-2024 13:49-0400 Body height 162.[address] Rosanna Scales DO Work Phone: [phone] [place] [address] 10-13-2024 13:49-0400 Diastolic blood pressure 72 mm[Hg] Dr. Rosanna Scales DO Work Phone: [phone] [place] [address] 10-13-2024 13:49-0400 Systolic blood pressure 130 mm[Hg] Dr. Rosanna Scales DO Work Phone: [facility] 10-13-2024 13:43-0400 Body mass index (BMI) [Ratio] 41.9 kg/m2 Dr. Rosanna Scales DO Work Phone: [facility] 10-13-2024 13:43-0400 Body weight 110.[address] Rosanna Scales DO Work Phone: [facility] 09-30-2024 13:28-0400 Body height 162.[address] Rosanna Scales DO Work Phone: [facility] 09-30-2024 13:28-0400 Body mass index (BMI) [Ratio] 42.1 kg/m2 Dr. Rosanna Fast DO Work Phone: [facility] 09-30-2024 13:28-0400 Body weight 111.[address] Rosanna Scales DO Work Phone: [facility] 09-30-2024 13:28-0400 Diastolic blood pressure 78 mm[Hg] Dr. Rosanna Scales DO Work Phone: [facility] 09-30-2024 13:28-0400 Systolic blood pressure 136 mm[Hg] Dr. Rosanna Scales DO Work Phone: [facility] 09-09-2024 15:25-0400 Body mass index (BMI) [Ratio] 41.7 kg/m2 Dr. Rosanna Scales DO Work Phone: [facility] 09-09-2024 15:25-0400 Body weight 110.[address] Rosanna Scales DO Work Phone: [facility] 09-09-2024 15:25-0400 Diastolic blood pressure 84 mm[Hg] Dr. Rosanna Scales DO Work Phone: [facility] 09-09-2024 15:25-0400 Systolic blood pressure 137 mm[Hg] Dr. Rosanna Scales DO Work Phone: [facility] 08-11-2024 14:39-0400 Body mass index (BMI) [Ratio] 40.5 kg/m2 Dr. Rosanna Scales DO Work Phone: [facility] 08-11-2024 14:39-0400 Body weight 107.[address] Rosanna Scales DO Work Phone: [facility] 08-11-2024 14:39-0400 Diastolic blood pressure 81 mm[Hg] Dr. Rosanna Scales DO Work Phone: [facility] 08-11-2024 14:39-0400 Systolic blood pressure 124 mm[Hg] Dr. Rosanna Scales DO Work Phone: [facility] 07-16-2024 11:23-0400 Body mass index (BMI) [Ratio] 40.1 kg/m2 Dr. Rosanna Scales DO Work Phone: [facility] 07-16-2024 11:23-0400 Body weight 105.[address] Rosanna Scales DO Work Phone: [facility] 07-16-2024 11:23-0400 Diastolic blood pressure 79 mm[Hg] Dr. Rosanna Scales DO Work Phone: [facility] 07-16-2024 11:23-0400 Systolic blood pressure 135 mm[Hg] Dr. Rosanna Scales DO Work Phone: [facility] 07-01-2024 15:18-0400 Body mass index (BMI) [Ratio] 39.2 kg/m2 Dr. Rosanan Scales DO Work Phone: [facility] 07-01-2024 15:18-0400 Body weight 103.[address] Rosanna Scales DO Work Phone: [facility] 07-01-2024 15:18-0400 Diastolic blood pressure 87 mm[Hg] Dr. Rosanna Scales DO Work Phone: [facility] 07-01-2024 15:18-0400 Systolic blood pressure 137 mm[Hg] Dr. Rosanna Scales DO Work Phone: [facility] 06-16-2024 15:01-0500 Diastolic blood pressure 84 mm[Hg] Dr. Rosanna Scales DO Work Phone: [facility] 06-16-2024 15:01-0500 Systolic blood pressure 133 mm[Hg] Dr. Rosanna Scales DO Work Phone: [facility] 06-16-2024 14:59-0500 Body mass index (BMI) [Ratio] 39.4 kg/m2 Dr. Rosanna Scales DO Work Phone: [facility] 06-16-2024 14:59-0500 Body weight 104.[address] Rosanna Scales DO Work Phone: [facility] 12-05-2022 12:15-0400 Body temperature 97.8 [degF] Dr. Marte Fast Work Phone: [facility] 12-05-2022 12:15-0400 Diastolic blood pressure 72 mm[Hg] Dr. Marte Fast Work Phone: [facility] 12-05-2022 12:15-0400 Heart rate 69 /min Dr. Marte Fast Work Phone: [facility] 12-05-2022 12:15-0400 Respiratory rate 14 /min Dr. Marte Fast Work Phone: [facility] 12-05-2022 12:15-0400 SaO2% (BldA) [Mass fraction] 97 % Dr. Marte Fast Work Phone: [facility] 12-05-2022 12:15-0400 Systolic blood pressure 123 mm[Hg] Dr. Marte Fast Work Phone: [facility] 12-05-2022 10:13-0400 Body height 162.[address] Marte Fast Work Phone: [facility] 12-05-2022 10:13-0400 Body mass index (BMI) [Ratio] 40.2 kg/m2 Dr. Marte Fast Work Phone: [facility] 12-05-2022 10:13-0400 Body weight 106.[address] Marte Fast Work Phone: [facility] 09-25-2022 14:08-0400 Body mass index (BMI) [Ratio] 39.9 kg/m2 Dr. Marte Fast Work Phone: [facility] 09-25-2022 14:08-0400 Body weight 105.[address] Marte Fast Work Phone: [facility] 09-25-2022 14:08-0400 Diastolic blood pressure 95 mm[Hg] Dr. Marte Fast Work Phone: [facility] 09-25-2022 14:08-0400 Systolic blood pressure 137 mm[Hg] Dr. Marte Fast Work Phone: [facility] 09-11-2022 14:36-0400 Body height 162.[address] Marte Fast Work Phone: [facility] 09-11-2022 14:27-0400 Body mass index (BMI) [Ratio] 40 kg/m2 Dr. Marte Fast Work Phone: [facility] 09-11-2022 14:27-0400 Body weight 105.[address] Marte Fast Work Phone: [facility] 09-11-2022 14:27-0400 Diastolic blood pressure 84 mm[Hg] Dr. Marte Fast Work Phone: [facility] 09-11-2022 14:27-0400 Systolic blood pressure 133 mm[Hg] Dr. Marte Fast Work Phone: [facility] 09-07-2022 10:15-0400 Body temperature 99.2 [degF] Dr. Marte Fast Work Phone: [facility] 09-07-2022 10:15-0400 Diastolic blood pressure 75 mm[Hg] Dr. Marte Fast Work Phone: [facility] 09-07-2022 10:15-0400 Heart rate 80 /min Dr. Marte Fast Work Phone: [facility] 09-07-2022 10:15-0400 Respiratory rate 16 /min Dr. Marte Fast Work Phone: [facility] 09-07-2022 10:15-0400 SaO2% (BldA) [Mass fraction] 97 % Dr. Marte Fast Work Phone: [facility] 09-07-2022 10:15-0400 Systolic blood pressure 146 mm[Hg] Dr. Marte Fast Work Phone: [facility] 09-04-2022 16:57-0400 Body mass index (BMI) [Ratio] 43.4 kg/m2 Dr. Marte Fast Work Phone: [facility] 09-04-2022 16:57-0400 Body weight 114.[address] Marte Fast Work Phone: [facility] 09-04-2022 16:14-0400 Diastolic blood pressure 108 mm[Hg] Dr. Marte Fast Work Phone: [facility] 09-04-2022 16:14-0400 Systolic blood pressure 160 mm[Hg] Dr. Marte Fast Work Phone: [facility] 09-04-2022 15:49-0400 Body mass index (BMI) [Ratio] 43.6 kg/m2 Dr. Marte Fast Work Phone: [facility] 09-04-2022 15:49-0400 Body weight 115.[address] Marte Fast Work Phone: [facility] 09-02-2022 08:32-0400 Body mass index (BMI) [Ratio] 43.4 kg/m2 Dr. Marte Fast Work Phone: [facility] 09-02-2022 08:32-0400 Body weight 114.[address] Marte Fast Work Phone: [facility] 09-02-2022 08:32-0400 Diastolic blood pressure 90 mm[Hg] Dr. Marte Fast Work Phone: [facility] 09-02-2022 08:32-0400 Systolic blood pressure 144 mm[Hg] Dr. Marte Fast Work Phone: [facility] 08-30-2022 14:58-0400 Body mass index (BMI) [Ratio] 43.9 kg/m2 Dr. Marte Fast Work Phone: [facility] 08-30-2022 14:58-0400 Body weight 116.[address] Marte Fast Work Phone: [facility] 08-30-2022 14:58-0400 Diastolic blood pressure 80 mm[Hg] Dr. Marte Fast Work Phone: [facility] 08-30-2022 14:58-0400 Systolic blood pressure 138 mm[Hg] Dr. Marte Fast Work Phone: [facility] 08-27-2022 15:31-0400 Body height 162.[address] Marte Fast Work Phone: [facility] 08-27-2022 15:29-0400 Body mass index (BMI) [Ratio] 43.4 kg/m2 Dr. Marte Fast Work Phone: [facility] 08-27-2022 15:29-0400 Body weight 114.[address] Marte Fast Work Phone: [facility] 08-27-2022 15:29-0400 Diastolic blood pressure 92 mm[Hg] Dr. Marte Fast Work Phone: [facility] 08-27-2022 15:29-0400 Systolic blood pressure 142 mm[Hg] Dr. Marte Fast Work Phone: [facility] 08-22-2022 13:11-0400 Body mass index (BMI) [Ratio] 43 kg/m2 Dr. Marte Fast Work Phone: [facility] 08-22-2022 13:11-0400 Body weight 113.[address] Marte Fast Work Phone: [facility] 08-22-2022 13:11-0400 Diastolic blood pressure 86 mm[Hg] Dr. Rosanna Scales Work Phone: [facility] 08-22-2022 13:11-0400 Systolic blood pressure 144 mm[Hg] Dr. Marte Fast Work Phone: [facility] 08-20-2022 16:02-0400 Diastolic blood pressure 91 mm[Hg] Dr. Marte Fast Work Phone: [facility] 08-20-2022 16:02-0400 Systolic blood pressure 141 mm[Hg] Dr. Marte Fast Work Phone: [facility] 08-20-2022 15:30-0400 Body height 162.[address] Rosanna Fast Work Phone: [facility] 08-20-2022 15:27-0400 Body mass index (BMI) [Ratio] 42.8 kg/m2 Dr. Marte Fast Work Phone: [facility] 08-20-2022 15:27-0400 Body weight 113.[address] Marte Fast Work Phone: [facility] 08-16-2022 16:18-0400 Diastolic blood pressure 85 mm[Hg] Dr. Marte Fast Work Phone: [facility] 08-16-2022 16:18-0400 Systolic blood pressure 134 mm[Hg] Dr. Marte Fast Work Phone: [facility] 08-16-2022 15:38-0400 Body height 162.[address] Marte Fast Work Phone: [facility] 08-16-2022 15:38-0400 Body mass index (BMI) [Ratio] 43.6 kg/m2 Dr. Marte Fast Work Phone: [facility] 08-16-2022 15:38-0400 Body weight 115.[address] Marte Fast Work Phone: [facility] 08-13-2022 15:34-0400 Diastolic blood pressure 92 mm[Hg] Dr. Marte Fast Work Phone: [facility] 08-13-2022 15:34-0400 Systolic blood pressure 143 mm[Hg] Dr. Marte Fast Work Phone: [facility] 08-13-2022 15:10-0400 Body mass index (BMI) [Ratio] 42.6 kg/m2 Dr. Marte Fast Work Phone: [facility] 08-13-2022 15:10-0400 Body weight 112.[address] Marte Fast Work Phone: [facility] 08-08-2022 15:41-0400 Diastolic blood pressure 92 mm[Hg] Dr. Marte Fast Work Phone: [facility] 08-08-2022 15:41-0400 Systolic blood pressure 130 mm[Hg] Dr. Marte Fast Work Phone: [facility] 08-08-2022 15:21-0400 Body height 162.[address] Marte Fast Work Phone: [facility] 08-08-2022 15:19-0400 Body mass index (BMI) [Ratio] 42.6 kg/m2 Dr. Marte Fast Work Phone: [facility] 08-08-2022 15:19-0400 Body weight 112.[address] Marte Fast Work Phone: [facility] 08-05-2022 16:02-0400 Body mass index (BMI) [Ratio] 42.5 kg/m2 Dr. Marte Fast Work Phone: [facility] 08-05-2022 16:02-0400 Body weight 112.[address] Marte Fast Work Phone: [facility] 08-05-2022 16:02-0400 Diastolic blood pressure 86 mm[Hg] Dr. Marte Fast Work Phone: [facility] 08-05-2022 16:02-0400 Systolic blood pressure 124 mm[Hg] Dr. Marte Fast Work Phone: [facility] 08-02-2022 11:13-0400 Diastolic blood pressure 83 mm[Hg] Dr. Marte Fast Work Phone: [facility] 08-02-2022 11:13-0400 Systolic blood pressure 139 mm[Hg] Dr. Marte Fast Work Phone: [facility] 08-02-2022 10:39-0400 Body weight 110.[address] Marte Fast Work Phone: [facility] 07-30-2022 15:34-0400 Diastolic blood pressure 91 mm[Hg] Dr. Marte Fast Work Phone: [facility] [facility]22 15:34-0400 Systolic blood pressure 137 mm[Hg] Dr. Marte Fast Work Phone: [facility] 07-30-2022 14:58-0400 Body mass index (BMI) [Ratio] 42.3 kg/m2 Dr. Marte Fast Work Phone: [facility] 07-30-2022 14:58-0400 Body weight 111.[address] Marte Fast Work Phone: [facility] 07-26-2022 10:10-0400 Body mass index (BMI) [Ratio] 41.4 kg/m2 Dr. Marte Fast Work Phone: [facility] 07-26-2022 10:10-0400 Body weight 109.[address] Marte Fast Work Phone: [facility] 07-26-2022 10:10-0400 Diastolic blood pressure 84 mm[Hg] Dr. Marte Fast Work Phone: [facility] 07-26-2022 10:10-0400 Systolic blood pressure 134 mm[Hg] Dr. Marte Fast Work Phone: [facility] 07-24-2022 18:57-0400 Diastolic blood pressure 72 mm[Hg] Dr. Marte Fast Work Phone: [facility] 07-24-2022 18:57-0400 Heart rate 72 /min Dr. Marte Fast Work Phone: [facility] 07-24-2022 18:57-0400 Systolic blood pressure 149 mm[Hg] Dr. Marte Fast Work Phone: [facility] 07-23-2022 17:58-0400 Diastolic blood pressure 94 mm[Hg] Dr. Marte Fast Work Phone: [facility] 07-23-2022 17:58-0400 Systolic blood pressure 154 mm[Hg] Dr. Marte Fast Work Phone: [facility] 07-23-2022 17:19-0400 Heart rate 81 /min Dr. Marte Fast Work Phone: [facility] 07-23-2022 15:33-0400 Body temperature 97.7 [degF] Dr. Marte Fast Work Phone: [facility] 07-23-2022 15:33-0400 SaO2% (BldA) [Mass fraction] 99 % Dr. Marte Fast Work Phone: [facility] 07-23-2022 15:16-0400 Body height 162.[address] Marte Fast Work Phone: [facility] 07-23-2022 15:16-0400 Body mass index (BMI) [Ratio] 41.8 kg/m2 Dr. Marte Fast Work Phone: [facility] 07-23-2022 15:16-0400 Body weight 110.[address] Marte Fast Work Phone: [facility] 07-23-2022 14:22-0400 Diastolic blood pressure 86 mm[Hg] Dr. Marte Fast Work Phone: [facility] 07-23-2022 14:22-0400 Systolic blood pressure 146 mm[Hg] Dr. Rosanna Scales Work Phone: [facility] 07-23-2022 14:13-0400 Body mass index (BMI) [Ratio] 42 kg/m2 Dr. Marte Fast Work Phone: [facility] 07-23-2022 14:13-0400 Body weight 111.[address] Marte Fast Work Phone: [facility] 07-10-2022 14:23-0400 Body height 162.[address] Marte Fast Work Phone: [facility] 07-10-2022 14:23-0400 Body mass index (BMI) [Ratio] 42.1 kg/m2 Dr. Marte Fast Work Phone: [facility] 07-10-2022 14:23-0400 Body weight 111.[address] Marte Fast Work Phone: [facility] 07-10-2022 14:23-0400 Diastolic blood pressure 86 mm[Hg] Dr. Marte Fast Work Phone: [facility] 07-10-2022 14:23-0400 Systolic blood pressure 132 mm[Hg] Dr. Marte Fast Work Phone: [facility] 06-26-2022 15:30-0500 Body mass index (BMI) [Ratio] 41.4 kg/m2 Dr. Marte Fast Work Phone: [facility] 06-26-2022 15:30-0500 Body weight 109.[address] Marte Fast Work Phone: [facility] 06-26-2022 15:30-0500 Diastolic blood pressure 84 mm[Hg] Dr. Marte Fast Work Phone: [facility] 06-26-2022 15:30-0500 Systolic blood pressure 138 mm[Hg] Dr. Marte Fast Work Phone: [facility] 05-27-2022 15:36-0500 Body mass index (BMI) [Ratio] 41.1 kg/m2 Dr. Marte Fast Work Phone: [facility] 05-27-2022 15:36-0500 Body weight 108.[address] Marte Fast Work Phone: [facility] 05-27-2022 15:36-0500 Diastolic blood pressure 84 mm[Hg] Dr. Marte Fast Work Phone: [facility] 05-27-2022 15:36-0500 Systolic blood pressure 130 mm[Hg] Dr. Marte Fast Work Phone: [facility] 04-29-2022 15:59-0500 Body height 162.[address] Marte Fast Work Phone: [facility] 04-29-2022 15:51-0500 Body mass index (BMI) [Ratio] 41 kg/m2 Dr. Marte Fast Work Phone: [facility] 04-29-2022 15:51-0500 Body weight 108.[address] Marte Fast Work Phone: [facility] 04-29-2022 15:51-0500 Diastolic blood pressure 82 mm[Hg] Dr. Marte Fast Work Phone: [facility] 04-29-2022 15:51-0500 Systolic blood pressure 134 mm[Hg] Dr. Rosanna Scales Work Phone: [facility] 04-01-2022 14:43-0500 Body height 162.[address] Marte Fast Work Phone: [facility] Work Phone: 04-01-2022 14:43-0500 Body mass index (BMI) [Ratio] 40.6 kg/m2 Dr. Rosanna Scales Work Phone: [facility] 04-01-2022 14:43-0500 Body weight 107.[address] Rosanna Scales Work Phone: [facility] 04-01-2022 14:43-0500 Diastolic blood pressure 88 mm[Hg] Dr. Rosanna Scales Work Phone: [facility] 04-01-2022 14:43-0500 Systolic blood pressure 136 mm[Hg] Dr. Rosanna Scales Work Phone: [facility] 03-04-2022 13:35-0500 Body height 162.[address] Rosanna Scales Work Phone: [facility] Work Phone: 03-04-2022 13:35-0500 Body mass index (BMI) [Ratio] 39.9 kg/m2 Dr. Marte Fast Work Phone: [facility] 03-04-2022 13:35-0500 Body weight 105.[address] Marte Fast Work Phone: [facility] 03-04-2022 13:35-0500 Diastolic blood pressure 73 mm[Hg] Dr. Rosanna Fast Work Phone: [facility] 03-04-2022 13:35-0500 Systolic blood pressure 129 mm[Hg] Dr. Rosanna Scales Work Phone: [facility] 01-29-2022 08:06-0400 Body height 158.75 cm Nany Pascualgerman [facility] Work Phone: 01-29-2022 08:06-0400 Body mass index (BMI) [Ratio] 42.54 kg/m2 [facility]; [facility] Work Phone: 01-29-2022 08:06-0400 Body surface area Derived from formula 2.06 m2 Nany Pascualgerman [facility]; [facility] Work Phone: 01-29-2022 08:06-0400 Body temperature 99 [degF] Nany Pascualgerman [facility]; [facility] Work Phone: Comment on above: Method: Thermal Scan 01-29-2022 08:06-0400 Body weight 107.22 kg Nany Pascualmeghanajack [facility]; [facility] Work Phone: 01-29-2022 08:06-0400 Diastolic blood pressure 78 mm[Hg] Nany Rubalcava [facility]; [facility] Work Phone: Comment on above: Patient Position: Sitting; Cuff Location : Left Arm; Cuff Size: Standard 01-29-2022 08:06-0400 Heart rate 101 /min Nany Pascualmeghanajack [facility]; [facility] Work Phone: Comment on above: Pattern: Regular 01-29-2022 08:06-0400 Respiratory rate 16 /min [facility] Work Phone: Comment on above: Pattern: Unlabored 01-29-2022 08:06-0400 Systolic blood pressure 118 mm[Hg] Nany Pascualmeghanajack [facility]; [facility] Work Phone: Comment on above: Patient Position: Sitting; Cuff Location : Left Arm; Cuff Size: Standard 08-30-2021 09:24-0400 Body height 162.[address] Rosanna Scales Work Phone: [facility] Work Phone: 08-30-2021 09:24-0400 Body mass index (BMI) [Ratio] 42.3 kg/m2 Dr. Rosanna Scales Work Phone: [facility] Work Phone: 08-30-2021 09:24-0400 Body weight 111.[address] Rosanna Scales Work Phone: [facility] Work Phone: 08-30-2021 09:24-0400 Diastolic blood pressure 90 mm[Hg] Dr. Rosanna Scales Work Phone: [facility] Work Phone: 08-30-2021 09:24-0400 Systolic blood pressure 138 mm[Hg] Dr. Rosanna Scales Work Phone: [facility] Work Phone: 07-12-2021 14:43-0400 Body temperature 98.2 [degF] Salud Francis [employer] Work Phone: [facility] 07-12-2021 14:43-0400 Body weight 116.48 kg Salud Francis [employer]CH[employer] Work Phone: [facility] 07-12-2021 14:43-0400 Diastolic blood pressure 84 mm[Hg] Salud Francis [employer] TECH[employer] Work Phone: [facility] 07-12-2021 14:43-0400 Heart rate 81 /min Salud Francis [employer] TECHN[employer] Work Phone: [facility] 07-12-2021 14:43-0400 Respiratory rate 18 /min Salud Francis [employer] TECH[employer] Work Phone: [facility] 07-12-2021 14:43-0400 SaO2% (BldA) [Mass fraction] 99 % Salud Blanco [employer] TECH[employer] Work Phone: [facility] 07-12-2021 14:43-0400 Systolic blood pressure 132 mm[Hg] Salud Elijack [employer] TECHNICAL ADVISOR Work Phone: [facility] 01-15-2021 15:34-0400 Body height 158.75 cm [facility]; [facility] Work Phone: 01-15-2021 15:34-0400 Body mass index (BMI) [Ratio] 42.54 kg/m2 [facility]; [facility] Work Phone: 01-15-2021 15:34-0400 Body surface area Derived from formula 2.06 m2 [facility]; [facility] Work Phone: 01-15-2021 15:34-0400 Body temperature 97.1 [degF] [facility]; [facility] Work Phone: Comment on above: Method: Thermal Scan 01-15-2021 15:34-0400 Body weight 107.22 kg [facility]; [facility] Work Phone: 01-15-2021 15:34-0400 Diastolic blood pressure 88 mm[Hg] [facility]; [facility] Work Phone: Comment on above: Patient Position: Sitting; Cuff Location : Left Arm; Cuff Size: Standard 01-15-2021 15:34-0400 Heart rate 115 /min [facility]; [facility] Work Phone: Comment on above: Pattern: Regular 01-15-2021 15:34-0400 Respiratory rate 16 /min [facility]; [facility] Work Phone: Comment on above: Pattern: Unlabored 01-15-2021 15:34-0400 SaO2% (BldA) [Mass fraction] 98 % [facility]; [facility] Work Phone: Comment on above: Room air 01-15-2021 15:34-0400 Systolic blood pressure 142 mm[Hg] Nany Rubalcava [facility]; [facility] Work Phone: Comment on above: Patient Position: Sitting; Cuff Location : Left Arm; Cuff Size: Standard 01-12-2021 13:28-0400 Body height 158.75 cm Rosanna A Fast DO Work Phone: [facility]; [facility] Work Phone: Comment on above: recheck BP 142/98 01-12-2021 13:28-0400 Body mass index (BMI) [Ratio] 42.54 kg/m2 Rosanna A Fast DO Work Phone: [facility]; [facility] Work Phone: Comment on above: recheck BP 142/98 01-12-2021 13:28-0400 Body surface area Derived from formula 2.06 m2 Rosanna A Fast DO Work Phone: [facility]; [facility] Work Phone: Comment on above: recheck BP 142/98 01-12-2021 13:28-0400 Body temperature 97 [degF] Rosanna A Fast DO Work Phone: [facility]; [facility] Work Phone: Comment on above: Method: Thermal Scan recheck BP 142/98 01-12-2021 13:28-0400 Body weight 107.22 kg Rosanna A Fast DO Work Phone: [facility]; [facility] Work Phone: Comment on above: recheck BP 142/98 01-12-2021 13:28-0400 Diastolic blood pressure 96 mm[Hg] Rosanna A Fast DO Work Phone: [facility]; [facility] Work Phone: Comment on above: Patient Position: Sitting; Cuff Location : Left Arm; Cuff Size: Standard recheck BP 142/98 01-12-2021 13:28-0400 Heart rate 98 /min Rosanna A Fast DO Work Phone: [facility]; [facility] Work Phone: Comment on above: Pattern: Regular recheck BP 142/98 01-12-2021 13:28-0400 Respiratory rate 16 /min Rosanna A Fast DO Work Phone: [facility]; [facility] Work Phone: Comment on above: Pattern: Unlabored recheck BP 142/98 01-12-2021 13:28-0400 Systolic blood pressure 152 mm[Hg] Rosanna A Fast DO Work Phone: [facility]; [facility] Work Phone: Comment on above: Patient Position: Sitting; Cuff Location : Left Arm; Cuff Size: Standard recheck BP 142/98 06-02-2020 07:08-0500 BMI (Body Mass Index) 42.54 kg/m2 [facility]; [facility] Work Phone: 06-02-2020 07:08-0500 Body Temperature 97.1 [degF] [facility]; [facility] Work Phone: Comment on above: Method: Thermal Scan 06-02-2020 07:08-0500 Body weight 107.22 kg [facility]; [facility] Work Phone: 06-02-2020 07:08-0500 BP Diastolic 82 mm[Hg] [facility]; [facility] Work Phone: Comment on above: Patient Position: Sitting; Cuff Location : Left Arm; Cuff Size: Standard 06-02-2020 07:08-0500 BP Systolic 142 mm[Hg] [facility]; [facility] Work Phone: Comment on above: Patient Position: Sitting; Cuff Location : Left Arm; Cuff Size: Standard 06-02-2020 07:08-0500 BSA (Body Surface Area) 2.06 m2 [facility]; [facility] Work Phone: 06-02-2020 07:08-0500 Height 158.75 cm [facility]; [facility] Work Phone: 06-02-2020 07:08-0500 Pulse (Heart Rate) 106 /min [facility]; [facility] Work Phone: Comment on above: Pattern: Regular 06-02-2020 07:08-0500 Pulse Oximetry 95 % Rosanna Fast [facility]; [facility] Work Phone: Comment on above: Room air 06-02-2020 07:08-0500 Respiratory Rate 16 /min [facility]; [facility] Work Phone: Comment on above: Pattern: Unlabored 06-02-2020 07:08-0500 SaO2% (BldA) [Mass fraction] 95 % [facility]; [facility] Work Phone: Comment on above: Room air 06-09-2019 12:46-0500 BMI (Body Mass Index) 42.54 kg/m2 Nany Rubalcava [facility] Work Phone: 06-09-2019 12:46-0500 Body Temperature 97.9 [degF] Nany Rubalcava [facility] Work Phone: Comment on above: Method: Temporal 06-09-2019 12:46-0500 Body weight 107.22 kg Nany Rubalcava [facility] Work Phone: 06-09-2019 12:46-0500 BP Diastolic 70 mm[Hg] Nany Rubalcava [facility] Work Phone: Comment on above: Patient Position: Sitting; Cuff Location : Left Arm; Cuff Size: Standard 06-09-2019 12:46-0500 BP Systolic 108 mm[Hg] Nany Rubalcava [facility] Work Phone: Comment on above: Patient Position: Sitting; Cuff Location : Left Arm; Cuff Size: Standard 06-09-2019 12:46-0500 BSA (Body Surface Area) 2.06 m2 Nany Rubalcava [facility] Work Phone: 06-09-2019 12:46-0500 Height 158.75 cm Nany Rubalcava [facility] Work Phone: 06-09-2019 12:46-0500 Pulse (Heart Rate) 112 /min Nany Rubalcava [facility] Work Phone: Comment on above: Pattern: Regular 06-09-2019 12:46-0500 Pulse Oximetry 97 % Rosanna Fast [facility] Work Phone: Comment on above: Room air 06-09-2019 12:46-0500 Respiratory Rate 16 /min Nany Rubalcava [facility] Work Phone: Comment on above: Pattern: Unlabored 06-09-2019 12:46-0500 SaO2% (BldA) [Mass fraction] 97 % Nany Rubalcava [facility]; [facility] Work Phone: Comment on above: Room air 09-30-2018 14:52-0400 BMI (Body Mass Index) 42.54 kg/m2 [employer] [facility] Work Phone: 09-30-2018 14:52-0400 Body Temperature 98.4 [degF] [employer] [facility] Work Phone: Comment on above: Method: Temporal 09-30-2018 14:52-0400 Body weight 107.22 kg [employer] [facility] Work Phone: 09-30-2018 14:52-0400 BP Diastolic 92 mm[Hg] [employer] [facility] Work Phone: Comment on above: Patient Position: Sitting; Cuff Location : Left Arm; Cuff Size: Standard 09-30-2018 14:52-0400 BP Systolic 122 mm[Hg] [employer] [facility] Work Phone: Comment on above: Patient Position: Sitting; Cuff Location : Left Arm; Cuff Size: Standard 09-30-2018 14:52-0400 BSA (Body Surface Area) 2.06 m2 [employer] [facility]on [facility] Work Phone: 09-30-2018 14:52-0400 Height 158.75 cm [employer] Hendrickson [facility] Work Phone: 09-30-2018 14:52-0400 Pulse (Heart Rate) 118 /min [employer] [facility] Work Phone: Comment on above: Pattern: Regular 09-30-2018 14:52-0400 Pulse Oximetry 98 % Rosanna Scales [facility] Work Phone: Comment on above: Room air 09-30-2018 14:52-0400 Respiratory Rate 18 /min [employer] Hendrickson [facility] Work Phone: Comment on above: Pattern: Unlabored 09-30-2018 14:52-0400 SaO2% (BldA) [Mass fraction] 98 % [employer] [facility]; [facility] Work Phone: Comment on above: Room air 09-30-2018 14:52-0400 Weight 107.22 kg Rosanna Scales [facility] Work Phone: 08-03-2018 09:58-0400 BMI (Body Mass Index) 38.34 kg/m2 Nany Rubalcava [facility] Work Phone: 08-03-2018 09:58-0400 Body Temperature 97.4 [degF] Nany Rubalcava [facility] Work Phone: Comment on above: Method: Temporal 08-03-2018 09:58-0400 Body weight 96.62 kg Nany Rubalcava [facility] Work Phone: 08-03-2018 09:58-0400 BP Diastolic 70 mm[Hg] Nany Rubalcava [facility] Work Phone: Comment on above: Patient Position: Sitting; Cuff Location : Left Arm; Cuff Size: Standard 08-03-2018 09:58-0400 BP Systolic 122 mm[Hg] Nany Rubalcava [facility] Work Phone: Comment on above: Patient Position: Sitting; Cuff Location : Left Arm; Cuff Size: Standard 08-03-2018 09:58-0400 BSA (Body Surface Area) 1.97 m2 Nany Rubalcava [facility] Work Phone: 08-03-2018 09:58-0400 Height 158.75 cm Nany Rubalcava [facility] Work Phone: 08-03-2018 09:58-0400 Pulse (Heart Rate) 120 /min Nany Rubalcava [facility] Work Phone: Comment on above: Pattern: Regular 08-03-2018 09:58-0400 Pulse Oximetry 98 % Rosanna Fast [facility] Work Phone: Comment on above: Room air 08-03-2018 09:58-0400 Respiratory Rate 16 /[facility] Work Phone: Comment on above: Pattern: Unlabored 08-03-2018 09:58-0400 SaO2% (BldA) [Mass fraction] 98 % Nany Rubalcava [facility]; [facility] Work Phone: Comment on above: Room air 08-03-2018 09:58-0400 Weight 96.62 kg Rosanna Fast [facility] Work Phone: 05-20-2018 12:08-0500 BMI (Body Mass Index) 38.34 kg/m2 Rosanna A Fast DO Work Phone: [facility] Work Phone: 05-20-2018 12:08-0500 Body Temperature 96.6 [degF] Rosanna A Fast DO Work Phone: [facility] Work Phone: Comment on above: Method: Temporal 05-20-2018 12:08-0500 Body weight 96.62 kg Rosanna A Fast DO Work Phone: [facility] Work Phone: 05-20-2018 12:08-0500 BP Diastolic 92 mm[Hg] Rosanna A Fast DO Work Phone: [facility] Work Phone: Comment on above: Patient Position: Sitting; Cuff Location : Left Arm; Cuff Size: Standard 05-20-2018 12:08-0500 BP Systolic 152 mm[Hg] Rosanna A Fast DO Work Phone: [facility] Work Phone: Comment on above: Patient Position: Sitting; Cuff Location : Left Arm; Cuff Size: Standard 05-20-2018 12:08-0500 BSA (Body Surface Area) 1.97 m2 Rosanna A Fast DO Work Phone: [facility] Work Phone: 05-20-2018 12:08-0500 Height 158.75 cm Rosanna A Fast DO Work Phone: [facility] Work Phone: 05-20-2018 12:08-0500 Pulse (Heart Rate) 106 /min Rosanna A Fast DO Work Phone: [facility] Work Phone: Comment on above: Pattern: Regular 05-20-2018 12:08-0500 Pulse Oximetry 96 % Rosanna Fast [facility] Work Phone: Comment on above: Room air 05-20-2018 12:08-0500 Respiratory Rate 18 /min Rosanna A Fast DO Work Phone: [facility] Work Phone: Comment on above: Pattern: Unlabored 05-20-2018 12:08-0500 SaO2% (BldA) [Mass fraction] 96 % Rosanna A Fast DO Work Phone: [facility]; [facility] Work Phone: Comment on above: Room air 05-20-2018 12:08-0500 Weight 96.62 kg Rosanna Fast [facility] Work Phone: 03-09-2018 15:29-0500 BMI (Body Mass Index) 38.34 kg/m2 Nany Rubalcava [facility] Work Phone: 03-09-2018 15:29-0500 Body Temperature 98.3 [degF] Nany Rubalcava [facility] Work Phone: Comment on above: Method: Temporal 03-09-2018 15:29-0500 Body weight 96.62 kg Nany Rubalcava CMA [facility] Work Phone: 03-09-2018 15:29-0500 BP Diastolic 70 mm[Hg] Nany Rubalcava [facility] Work Phone: Comment on above: Patient Position: Sitting; Cuff Location : Left Arm; Cuff Size: Standard 03-09-2018 15:29-0500 BP Systolic 115 mm[Hg] Nany Rubalcava [facility] Work Phone: Comment on above: Patient Position: Sitting; Cuff Location : Left Arm; Cuff Size: Standard 03-09-2018 15:29-0500 BSA (Body Surface Area) 1.97 m2 Nany Rubalcava [facility] Work Phone: 03-09-2018 15:29-0500 Height 158.75 cm Nany Rubalcava [facility] Work Phone: 03-09-2018 15:29-0500 Pulse (Heart Rate) 70 /min Nany Rubalcava [facility] Work Phone: Comment on above: Pattern: Regular 03-09-2018 15:29-0500 Pulse Oximetry 98 % Rosanna Scales [facility] Work Phone: Comment on above: Room air 03-09-2018 15:29-0500 Respiratory Rate 16 /min Nany Rubalcava [facility] Work Phone: Comment on above: Pattern: Unlabored 03-09-2018 15:29-0500 SaO2% (BldA) [Mass fraction] 98 % Nany Rubalcava [facility]; [facility] Work Phone: Comment on above: Room air 03-09-2018 15:29-0500 Weight 96.62 kg Rosanna Scales [facility] Work Phone: 11-10-2017 14:31-0400 BMI (Body Mass Index) 38.34 kg/m2 Nany Rubalcava CMA [facility] Work Phone: 11-10-2017 14:31-0400 Body Temperature 98.8 [degF] Nany Rubalcava [facility] Work Phone: Comment on above: Method: Temporal 11-10-2017 14:31-0400 Body weight 96.62 kg Nany Rubalcava [facility] Work Phone: 11-10-2017 14:31-0400 BP Diastolic 78 mm[Hg] Nany Rubalcava [facility] Internal Medicine Work Phone: Comment on above: Patient Position: Sitting; Cuff Location : Left Arm; Cuff Size: Standard 11-10-2017 14:31-0400 BP Systolic 126 mm[Hg] Nany Rubalcava [facility] Internal Medicine Work Phone: Comment on above: Patient Position: Sitting; Cuff Location : Left Arm; Cuff Size: Standard 11-10-2017 14:31-0400 BSA (Body Surface Area) 1.97 m2 Nany Rubalcava [facility] Internal Medicine Work Phone: 11-10-2017 14:31-0400 Height 158.75 cm Nany Rubalcava [facility] Internal Medicine Work Phone: 11-10-2017 14:31-0400 Pulse (Heart Rate) 68 /min Nany Rubalcava [facility] Internal Medicine Work Phone: Comment on above: Pattern: Regular 11-10-2017 14:31-0400 Respiratory Rate 16 /min Nany Rubalcava [facility] Internal Medicine Work Phone: Comment on above: Pattern: Unlabored 11-10-2017 14:31-0400 Weight 96.62 kg Rosanna Scales [facility] Internal Medicine Work Phone: 06-16-2017 08:00-0500 BMI (Body Mass Index) 36.54 kg/m2 Nany Rubalcava [facility] Internal Medicine Work Phone: 06-16-2017 08:00-0500 Body Temperature 98 [degF] Nany Rubalcava [facility] Internal Medicine Work Phone: Comment on above: Method: Temporal 06-16-2017 08:00-0500 Body weight 92.08 kg Nany Rubalcava [facility] Internal Medicine Work Phone: 06-16-2017 08:00-0500 BP Diastolic 80 mm[Hg] Nany Rubalcava [facility] Internal Medicine Work Phone: Comment on above: Patient Position: Sitting; Cuff Location : Left Arm; Cuff Size: Standard 06-16-2017 08:00-0500 BP Systolic 120 mm[Hg] Nany Rubalcava [facility] Internal Medicine Work Phone: Comment on above: Patient Position: Sitting; Cuff Location : Left Arm; Cuff Size: Standard 06-16-2017 08:00-0500 BSA (Body Surface Area) 1.94 m2 Nany Rubalcava [facility] Internal Medicine Work Phone: 06-16-2017 08:00-0500 Height 158.75 cm Nany Rubalcava [facility] Internal Medicine Work Phone: 06-16-2017 08:00-0500 Pulse (Heart Rate) 101 /min Nany Rubalcava [facility] Internal Medicine Work Phone: Comment on above: Pattern: Regular 06-16-2017 08:00-0500 Pulse Oximetry 99 % Rosanna [facility] Internal Medicine Work Phone: Comment on above: Room air 06-16-2017 08:00-0500 Respiratory Rate 16 /min Nany Rubalcava [facility] Internal Medicine Work Phone: Comment on above: Pattern: Unlabored 06-16-2017 08:00-0500 SaO2% (BldA) [Mass fraction] 99 % Nany Rubaclava [facility] Internal Medicine; [facility] Work Phone: Comment on above: Room air 06-16-2017 08:00-0500 Weight 92.08 kg Rosanna Scales [facility] Internal Medicine Work Phone: 06-04-2017 11:33-0500 BMI (Body Mass Index) 36.54 kg/m2 Nany Rubalcava [facility] Internal Medicine Work Phone: 06-04-2017 11:33-0500 Body Temperature 99.2 [degF] Nany Rubalcava [facility] Internal Medicine Work Phone: Comment on above: Method: Temporal 06-04-2017 11:33-0500 Body weight 92.08 kg Nany Rubalcava [facility] Internal Medicine Work Phone: 06-04-2017 11:33-0500 BP Diastolic 70 mm[Hg] Nany Rubalcava [facility] Internal Medicine Work Phone: Comment on above: Patient Position: Sitting; Cuff Location : Left Arm; Cuff Size: Standard 06-04-2017 11:33-0500 BP Systolic 110 mm[Hg] Nany Rubalcava [facility] Internal Medicine Work Phone: Comment on above: Patient Position: Sitting; Cuff Location : Left Arm; Cuff Size: Standard 06-04-2017 11:33-0500 BSA (Body Surface Area) 1.94 m2 Nany Rubalcava [facility] Internal Medicine Work Phone: 06-04-2017 11:33-0500 Height 158.75 cm Nany Rubalcava [facility] Internal Medicine Work Phone: 06-04-2017 11:33-0500 Pulse (Heart Rate) 127 /min Nany Rubalcava [facility] Internal Medicine Work Phone: Comment on above: Pattern: Regular 06-04-2017 11:33-0500 Pulse Oximetry 97 % Rosanna Fast [facility] Internal Medicine Work Phone: Comment on above: Room air 06-04-2017 11:33-0500 Respiratory Rate 16 /min Nany Rubalcava [facility] Internal Medicine Work Phone: Comment on above: Pattern: Unlabored 06-04-2017 11:33-0500 SaO2% (BldA) [Mass fraction] 97 % Nany Rubalcava [facility] Internal Medicine; [facility] Internal Medicine Work Phone: Comment on above: Room air 06-04-2017 11:33-0500 Weight 92.08 kg Rosanna Scales [facility] Internal Medicine Work Phone: 05-06-2017 13:03-0500 BMI (Body Mass Index) 36.54 kg/m2 Nany Rubalcava [facility] Internal Medicine Work Phone: 05-06-2017 13:03-0500 Body Temperature 97.6 [degF] Nany Rubalcvaa [facility] Internal Medicine Work Phone: Comment on above: Method: Temporal 05-06-2017 13:03-0500 Body weight 92.08 kg Nany Rubalcava [facility] Internal Medicine Work Phone: 05-06-2017 13:03-0500 BP Diastolic 78 mm[Hg] Nany Rubalcava [facility] Internal Medicine Work Phone: Comment on above: Patient Position: Sitting; Cuff Location : Left Arm; Cuff Size: Standard 05-06-2017 13:03-0500 BP Systolic 122 mm[Hg] Nany Rubalcava [facility] Internal Medicine Work Phone: Comment on above: Patient Position: Sitting; Cuff Location : Left Arm; Cuff Size: Standard 05-06-2017 13:03-0500 BSA (Body Surface Area) 1.94 m2 Nany Rubalcava [facility] Internal Medicine Work Phone: 05-06-2017 13:03-0500 Height 158.75 cm Nany Rubalcava [facility] Internal Medicine Work Phone: 05-06-2017 13:03-0500 Pulse (Heart Rate) 108 /min Nany Rubalcava [facility] Internal Medicine Work Phone: Comment on above: Pattern: Regular 05-06-2017 13:03-0500 Pulse Oximetry 98 % Rosanna Scales [facility] Internal Medicine Work Phone: Comment on above: Room air 05-06-2017 13:03-0500 Respiratory Rate 16 /min Nany Rubalcava [facility] Internal Medicine Work Phone: Comment on above: Pattern: Unlabored 05-06-2017 13:03-0500 SaO2% (BldA) [Mass fraction] 98 % Nany Rubalcava [facility]; [facility] Work Phone: Comment on above: Room air 05-06-2017 13:03-0500 Weight 92.08 kg Rosanna Scales [facility] Work Phone: 03-28-2017 11:52-0500 BMI (Body Mass Index) 36.54 kg/m2 Maria Teresa Marks RN [facility] Work Phone: Comment on above: sitting 114/72, 82standing 108/68, 88 03-28-2017 11:52-0500 Body Temperature 101.1 [degF] Maria Teresa Marks RN [facility] Work Phone: Comment on above: Method: Oral sitting 114/72, 82st anding 108/68, 88 03-28-2017 11:52-0500 Body weight 92.08 kg Maria Teresa Marks RN [facility] Work Phone: Comment on above: sitting 114/72, 82standing 108/68, 88 03-28-2017 11:52-0500 BP Diastolic 76 mm[Hg] Maria Teresa Marks RN [facility] Work Phone: Comment on above: Patient Position: Supine; Cuff Location: Left Arm; Cuff Size: Standard sitting 114/72, 82st anding 108/68, 88 03-28-2017 11:52-0500 BP Systolic 122 mm[Hg] Maria Teresa Marks RN [facility] Work Phone: Comment on above: Patient Position: Supine; Cuff Location: Left Arm; Cuff Size: Standard sitting 114/72, 82st anding 108/68, 88 03-28-2017 11:52-0500 BSA (Body Surface Area) 1.94 m2 Maria Teresa Marks RN [facility] Work Phone: Comment on above: sitting 114/72, 82standing 108/68, 88 03-28-2017 11:52-0500 Height 158.75 cm Maria Teresa Marks RN [facility] Work Phone: Comment on above: sitting 114/72, 82standing 108/68, 88 03-28-2017 11:52-0500 Pulse (Heart Rate) 72 /min Maria Teresa Marks RN [facility] Work Phone: Comment on above: Pattern: Regular sitting 114/72, 82st anding 108/68, 88 03-28-2017 11:52-0500 Pulse Oximetry 98 % Rosanna Scales [facility] Internal Medicine Work Phone: Comment on above: Room air sitting 114/72, 82st anding 108/68, 88 03-28-2017 11:52-0500 Respiratory Rate 16 /min Maria Teresa Marks RN [facility] Work Phone: Comment on above: Pattern: Unlabored sitting 114/72, 82st anding 108/68, 88 03-28-2017 11:52-0500 SaO2% (BldA) [Mass fraction] 98 % Maria Teresa Marks RN [facility]; [facility] Work Phone: Comment on above: Room air sitting 114/72, 82st anding 108/68, 88 03-28-2017 11:52-0500 Weight 92.08 kg Rosanna Scales [facility] Work Phone: Comment on above: sitting 114/72, 82standing 108/68, 88 03-26-2017 13:10-0500 BMI (Body Mass Index) 36.54 kg/m2 Gay Cabezas [facility] Work Phone: 03-26-2017 13:10-0500 Body Temperature 98.2 [degF] Gay Cabezas [facility] Internal Medicine Work Phone: Comment on above: Method: Temporal 03-26-2017 13:10-0500 Body weight 92.08 kg Gay Cabezas [facility] Internal Medicine Work Phone: 03-26-2017 13:10-0500 BP Diastolic 80 mm[Hg] Gay Cabezas [facility] Internal Medicine Work Phone: Comment on above: Patient Position: Sitting; Cuff Location : Left Arm; Cuff Size: Large 03-26-2017 13:10-0500 BP Systolic 138 mm[Hg] Gay Cabezas [facility] Internal Medicine Work Phone: Comment on above: Patient Position: Sitting; Cuff Location : Left Arm; Cuff Size: Large 03-26-2017 13:10-0500 BSA (Body Surface Area) 1.94 m2 Gay Cabezas [facility] Internal Medicine Work Phone: 03-26-2017 13:10-0500 Height 158.75 cm Gay Villavicencioshelly [facility] Internal Medicine Work Phone: 03-26-2017 13:10-0500 Pulse (Heart Rate) 92 /min Gay Cabezas [facility] Internal Medicine Work Phone: Comment on above: Pattern: Regular 03-26-2017 13:10-0500 Respiratory Rate 98 /min Gay Fariasvitaliy [facility] Internal Medicine Work Phone: Comment on above: Pattern: Unlabored 03-26-2017 13:10-0500 Weight 92.08 kg Rosanna Manuel [facility] Internal Medicine Work Phone: 03-19-2017 10:50-0500 BMI (Body Mass Index) 36.54 kg/m2 Gay Cabezas [facility] Internal Medicine Work Phone: 03-19-2017 10:50-0500 Body Temperature 97.7 [degF] Gay Villavicencioshelly [facility] Internal Medicine Work Phone: Comment on above: Method: Temporal 03-19-2017 10:50-0500 Body weight 92.08 kg Gay Villavicencioshelly [facility] Internal Medicine Work Phone: 03-19-2017 10:50-0500 BP Diastolic 70 mm[Hg] Gay Fariasvitaliy [facility] Internal Medicine Work Phone: Comment on above: Patient Position: Sitting; Cuff Location : Left Arm; Cuff Size: Large 03-19-2017 10:50-0500 BP Systolic 136 mm[Hg] Gay Fariasvitaliy [facility] Internal Medicine Work Phone: Comment on above: Patient Position: Sitting; Cuff Location : Left Arm; Cuff Size: Large 03-19-2017 10:50-0500 BSA (Body Surface Area) 1.94 m2 Gay Villavicencioshelly [facility] Internal Medicine Work Phone: 03-19-2017 10:50-0500 Height 158.75 cm Gay Cabezas [facility] Internal Medicine Work Phone: 03-19-2017 10:50-0500 Pulse (Heart Rate) 92 /min [facility] Work Phone: Comment on above: Pattern: Regular 03-19-2017 10:50-0500 Pulse Oximetry 98 % Rosanna Scales [facility] Internal Medicine Work Phone: Comment on above: Room air 03-19-2017 10:50-0500 Respiratory Rate 16 /min Gay Villavicencioshelly [facility] Internal Medicine Work Phone: Comment on above: Pattern: Unlabored 03-19-2017 10:50-0500 SaO2% (BldA) [Mass fraction] 98 % Gay Raulito [facility] Internal Medicine; [facility] Work Phone: Comment on above: Room air 03-19-2017 10:50-0500 Weight 92.08 kg Rosanna Scales [facility] Internal Medicine Work Phone: 02-19-2017 13:03-0400 BMI (Body Mass Index) 36.54 kg/m2 Gay Villavicencioshelly [facility] Internal Medicine Work Phone: 02-19-2017 13:03-0400 Body Temperature 97.4 [degF] Gay Villavicencioshelly [facility] Internal Medicine Work Phone: Comment on above: Method: Temporal 02-19-2017 13:03-0400 Body weight 92.08 kg Gay Raulito [facility] Internal Medicine Work Phone: 02-19-2017 13:03-0400 BP Diastolic 88 mm[Hg] Gay Raulito [facility] Internal Medicine Work Phone: Comment on above: Patient Position: Sitting; Cuff Location : Left Arm; Cuff Size: Large 02-19-2017 13:03-0400 BP Systolic 126 mm[Hg] Gay Raulito [facility] Internal Medicine Work Phone: Comment on above: Patient Position: Sitting; Cuff Location : Left Arm; Cuff Size: Large 02-19-2017 13:03-0400 BSA (Body Surface Area) 1.94 m2 Gay Cabezas [facility] Internal Medicine Work Phone: 02-19-2017 13:03-0400 Height 158.75 cm Gay Cabezas [facility] Internal Medicine Work Phone: 02-19-2017 13:03-0400 Pulse (Heart Rate) 98 /min Gay Cabezas [facility] [employer] [facility] Work Phone: Comment on above: Pattern: Regular 02-19-2017 13:03-0400 Pulse Oximetry 98 % Rosanna Fast [facility] Work Phone: Comment on above: Room air 02-19-2017 13:03-0400 Respiratory Rate 16 /min Gay Villavicencioshelly [facility] Internal Medicine Work Phone: Comment on above: Pattern: Unlabored 02-19-2017 13:03-0400 SaO2% (BldA) [Mass fraction] 98 % Gay Villavicencioshelly [facility] Internal Medicine; [facility] Work Phone: Comment on above: Room air 02-19-2017 13:03-0400 Weight 92.08 kg Rosanna Fast [facility] Work Phone: 02-05-2017 13:04-0400 BMI (Body Mass Index) 36.9 kg/m2 Rosanna A Fast DO Work Phone: [facility] Work Phone: 02-05-2017 13:04-0400 Body Temperature 97.8 [degF] Rosanna A Fast DO Work Phone: [facility] Internal Medicine Work Phone: Comment on above: Method: Temporal 02-05-2017 13:04-0400 Body weight 92.99 kg Rosanna A Fast DO Work Phone: [facility] Work Phone: 02-05-2017 13:04-0400 BP Diastolic 82 mm[Hg] Rosanna A Fast DO Work Phone: [facility] Work Phone: Comment on above: Patient Position: Sitting; Cuff Location : Left Arm; Cuff Size: Large 02-05-2017 13:04-0400 BP Systolic 126 mm[Hg] Rosanna A Fast DO Work Phone: [facility] Work Phone: Comment on above: Patient Position: Sitting; Cuff Location : Left Arm; Cuff Size: Large 02-05-2017 13:04-0400 BSA (Body Surface Area) 1.94 m2 Rosanna A Fast DO Work Phone: [facility] Work Phone: 02-05-2017 13:04-0400 Height 158.75 cm Rosanna A Fast DO Work Phone: [facility] Work Phone: 02-05-2017 13:04-0400 Pulse (Heart Rate) 80 /min Rosanna A Fast DO Work Phone: [facility] Work Phone: Comment on above: Pattern: Regular 02-05-2017 13:04-0400 Pulse Oximetry 98 % Rosanna Fast [facility] Work Phone: Comment on above: Room air 02-05-2017 13:04-0400 Respiratory Rate 16 /min Rosanna A Fast DO Work Phone: [facility] Work Phone: Comment on above: Pattern: Unlabored 02-05-2017 13:04-0400 SaO2% (BldA) [Mass fraction] 98 % Rosanna A Fast DO Work Phone: [facility]; [facility] Work Phone: Comment on above: Room air 02-05-2017 13:04-0400 Weight 92.99 kg Rosanna Fast [facility] Work Phone: 01-22-2017 10:56-0400 BMI (Body Mass Index) 36.9 kg/m2 Rosanna A Fast DO Work Phone: [facility] Work Phone: 01-22-2017 10:56-0400 Body Temperature 97.6 [degF] Rosanna A Fast DO Work Phone: [facility] Work Phone: Comment on above: Method: Temporal 01-22-2017 10:56-0400 Body weight 92.99 kg Rosanna A Fast DO Work Phone: [facility] Work Phone: 01-22-2017 10:56-0400 BP Diastolic 80 mm[Hg] Rosanna A Fast DO Work Phone: [facility] Work Phone: Comment on above: Patient Position: Sitting; Cuff Location : Left Arm; Cuff Size: Standard 01-22-2017 10:56-0400 BP Systolic 132 mm[Hg] Rosanna A Fast DO Work Phone: [facility] Work Phone: Comment on above: Patient Position: Sitting; Cuff Location : Left Arm; Cuff Size: Standard 01-22-2017 10:56-0400 BSA (Body Surface Area) 1.94 m2 Rosanna A Fast DO Work Phone: [facility] Work Phone: 01-22-2017 10:56-0400 Height 158.75 cm Rosanna A Fast DO Work Phone: [facility] Work Phone: 01-22-2017 10:56-0400 Pulse (Heart Rate) 80 /min Rosanna A Fast DO Work Phone: [facility] Work Phone: Comment on above: Pattern: Regular 01-22-2017 10:56-0400 Pulse Oximetry 97 % Rosanna Fast [facility] Work Phone: Comment on above: Room air 01-22-2017 10:56-0400 Respiratory Rate 16 /min Rosanna A Fast DO Work Phone: [facility] Work Phone: Comment on above: Pattern: Unlabored 01-22-2017 10:56-0400 SaO2% (BldA) [Mass fraction] 97 % Rosanna A Fast DO Work Phone: [facility]; [facility] Work Phone: Comment on above: Room air 01-22-2017 10:56-0400 Weight 92.99 kg Rosanna Scales [facility] Internal Medicine Work Phone: 01-03-2017 09:52-0400 BMI (Body Mass Index) 36.9 kg/m2 Nany Rubalcava [facility] Work Phone: 01-03-2017 09:52-0400 Body Temperature 99.3 [degF] Nany Rubalcava [facility] Work Phone: Comment on above: Method: Temporal 01-03-2017 09:52-0400 Body weight 92.99 kg Nany Rubalcava [facility] Internal Medicine Work Phone: 01-03-2017 09:52-0400 BP Diastolic 78 mm[Hg] Nany Rubalcava [facility] Work Phone: Comment on above: Patient Position: Sitting; Cuff Location : Left Arm; Cuff Size: Standard 01-03-2017 09:52-0400 BP Systolic 120 mm[Hg] Nany Rubalcava [facility] Work Phone: Comment on above: Patient Position: Sitting; Cuff Location : Left Arm; Cuff Size: Standard 01-03-2017 09:52-0400 BSA (Body Surface Area) 1.94 m2 Nany Rubalcava [facility] Work Phone: 01-03-2017 09:52-0400 Height 158.75 cm Nany Rubalcava [facility] Work Phone: 01-03-2017 09:52-0400 Pulse (Heart Rate) 115 /min Nany Rubalcava [facility] Internal Medicine Work Phone: Comment on above: Pattern: Regular 01-03-2017 09:52-0400 Respiratory Rate 16 /min Nany Rubalcava [facility] Work Phone: Comment on above: Pattern: Unlabored 01-03-2017 09:52-0400 Weight 92.99 kg Rosanna Parrish Internal Medicine Work Phone: 12-03-2016 11:01-0400 BMI (Body Mass Index) 36.36 kg/m2 Gay Villavicencioshelly [facility] Internal Medicine Work Phone: 12-03-2016 11:01-0400 Body Temperature 98.8 [degF] Gay Raulito [facility] Internal Medicine Work Phone: Comment on above: Method: Temporal 12-03-2016 11:01-0400 Body weight 91.63 kg Gay Villavicencioshelly [facility] Internal Medicine Work Phone: 12-03-2016 11:01-0400 BP Diastolic 88 mm[Hg] Gay Raulito [facility] Internal Medicine Work Phone: Comment on above: Patient Position: Sitting; Cuff Location : Left Arm; Cuff Size: Large 12-03-2016 11:01-0400 BP Systolic 140 mm[Hg] Gay Raulito [facility] Internal Medicine Work Phone: Comment on above: Patient Position: Sitting; Cuff Location : Left Arm; Cuff Size: Large 12-03-2016 11:01-0400 BSA (Body Surface Area) 1.93 m2 Gay Raulito [facility] Internal Medicine Work Phone: 12-03-2016 11:01-0400 Height 158.75 cm Gay Cabezas [facility] Internal Medicine Work Phone: 12-03-2016 11:01-0400 Pulse (Heart Rate) 102 /min Gay Raulito [facility] Internal Medicine Work Phone: Comment on above: Pattern: Regular 12-03-2016 11:01-0400 Pulse Oximetry 98 % Rosanna Scales [facility] Internal Medicine Work Phone: Comment on above: Room air 12-03-2016 11:01-0400 Respiratory Rate 16 /min Gay Raulito [facility] Internal Medicine Work Phone: Comment on above: Pattern: Unlabored 12-03-2016 11:01-0400 SaO2% (BldA) [Mass fraction] 98 % Gay Cabezas [facility] Internal Medicine; [facility] Work Phone: Comment on above: Room air 12-03-2016 11:01-0400 Weight 91.63 kg Rosanna Scales [facility] Internal Medicine Work Phone: 11-18-2016 17:03-0400 BMI (Body Mass Index) 36.36 kg/m2 Gay Villavicencioshelly [facility] Internal Medicine Work Phone: 11-18-2016 17:03-0400 Body Temperature 97.7 [degF] Gay Raulito [facility] Internal Medicine Work Phone: Comment on above: Method: Temporal 11-18-2016 17:03-0400 Body weight 91.63 kg Gay Villavicenciomaddisonvitaliy [facility] Internal Medicine Work Phone: 11-18-2016 17:03-0400 BP Diastolic 76 mm[Hg] Gay Raulito [facility] Internal Medicine Work Phone: Comment on above: Patient Position: Sitting; Cuff Location : Left Arm; Cuff Size: Large 11-18-2016 17:03-0400 BP Systolic 132 mm[Hg] Gay Villavicencioshelly [facility] Internal Medicine Work Phone: Comment on above: Patient Position: Sitting; Cuff Location : Left Arm; Cuff Size: Large 11-18-2016 17:03-0400 BSA (Body Surface Area) 1.93 m2 Gay Raulito [facility] Internal Medicine Work Phone: 11-18-2016 17:03-0400 Height 158.75 cm Gay Cabezas [facility] Internal Medicine Work Phone: 11-18-2016 17:03-0400 Pulse (Heart Rate) 96 /min Gay Villavicencioshelly [facility] Internal Medicine Work Phone: Comment on above: Pattern: Regular 11-18-2016 17:03-0400 Pulse Oximetry 99 % Rosanna Scales [facility] Internal Medicine Work Phone: Comment on above: Room air 11-18-2016 17:03-0400 Respiratory Rate 16 /min Gay Raulito [facility] Internal Medicine Work Phone: Comment on above: Pattern: Unlabored 11-18-2016 17:03-0400 SaO2% (BldA) [Mass fraction] 99 % Gay Cabezas [facility] Internal Medicine; [facility] Work Phone: Comment on above: Room air 11-18-2016 17:03-0400 Weight 91.63 kg Rosanna Scales [facility] Work Phone: 04-12-2016 07:05-0500 BMI (Body Mass Index) 36.36 kg/m2 [facility] Internal Medicine Work Phone: 04-12-2016 07:05-0500 Body Temperature 98 [degF] [facility] Internal Medicine Work Phone: 04-12-2016 07:05-0500 Body weight 91.63 kg [facility] Internal Medicine Work Phone: 04-12-2016 07:05-0500 BP Diastolic 80 mm[Hg] [facility] Internal Medicine Work Phone: Comment on above: Patient Position: Sitting; Cuff Location : Left Arm; Cuff Size: Standard 04-12-2016 07:05-0500 BP Systolic 150 mm[Hg] [facility] Internal Medicine Work Phone: Comment on above: Patient Position: Sitting; Cuff Location : Left Arm; Cuff Size: Standard 04-12-2016 07:05-0500 BSA (Body Surface Area) 1.93 m2 [facility] Internal Medicine Work Phone: 04-12-2016 07:05-0500 Height 158.75 cm [facility] Internal Medicine Work Phone: 04-12-2016 07:05-0500 Pulse (Heart Rate) 127 /min [facility] Internal Medicine Work Phone: Comment on above: Pattern: Regular 04-12-2016 07:05-0500 Pulse Oximetry 98 % Rosanna Scales [facility] Work Phone: Comment on above: Room air 04-12-2016 07:05-0500 Respiratory Rate 16 /min [facility] Internal Medicine Work Phone: Comment on above: Pattern: Unlabored 04-12-2016 07:05-0500 SaO2% (BldA) [Mass fraction] 98 % Manolo Dalal [facility]; [facility] Work Phone: Comment on above: Room air 04-12-2016 07:05-0500 Weight 91.63 kg Rosanna Fast [facility] Work Phone: 03-11-2016 13:42-0500 BMI (Body Mass Index) 36.36 kg/m2 Maria Teresa Marks RN [facility] Work Phone: 03-11-2016 13:42-0500 Body weight 91.63 kg Maria Teresa Marks RN [facility] Work Phone: 03-11-2016 13:42-0500 BSA (Body Surface Area) 1.93 m2 Maria Teresa Marks RN [facility] Work Phone: 03-11-2016 13:42-0500 Height 158.75 cm Maria Teresa Marks RN [facility] Work Phone: 03-11-2016 13:42-0500 Weight 91.63 kg Rosanna Fast [facility] Work Phone: 02-27-2016 11:30-0500 BMI (Body Mass Index) 36.36 kg/m2 Gay Cabezas [facility] Work Phone: 02-27-2016 11:30-0500 Body Temperature 98.6 [degF] Gay Cabezas [facility] Work Phone: Comment on above: Method: Temporal 02-27-2016 11:30-0500 Body weight 91.63 kg Gay Cabezas [facility] Work Phone: 02-27-2016 11:30-0500 BP Diastolic 70 mm[Hg] Gay Caebzas [facility] Work Phone: Comment on above: Patient Position: Sitting; Cuff Location : Left Arm; Cuff Size: Large 02-27-2016 11:30-0500 BP Systolic 122 mm[Hg] Gay Cabezas [facility] Work Phone: Comment on above: Patient Position: Sitting; Cuff Location : Left Arm; Cuff Size: Large 02-27-2016 11:30-0500 BSA (Body Surface Area) 1.93 m2 Gay Raulito [facility] Work Phone: 02-27-2016 11:30-0500 Height 158.75 cm Gay Cabezas [facility] Work Phone: 02-27-2016 11:30-0500 Pulse (Heart Rate) 86 /min [facility] Work Phone: Comment on above: Pattern: Regular 02-27-2016 11:30-0500 Pulse Oximetry 98 % Rosanna Fast [facility] Work Phone: Comment on above: Room air 02-27-2016 11:30-0500 Respiratory Rate 15 /min Gay Cabezas [facility] Work Phone: Comment on above: Pattern: Unlabored 02-27-2016 11:30-0500 SaO2% (BldA) [Mass fraction] 98 % Gay Cabzeas [facility]; [facility] Work Phone: Comment on above: Room air 02-27-2016 11:30-0500 Weight 91.63 kg Rosanna Fast [facility] Work Phone: 02-05-2016 11:13-0400 BP Diastolic 77 mm[Hg] Rosanna A Fast DO Work Phone: [facility] Work Phone: Comment on above: Patient Position: Sitting 02-05-2016 11:13-0400 BP Systolic 124 mm[Hg] Rosanna A Fast DO Work Phone: [facility] Work Phone: Comment on above: Patient Position: Sitting 02-05-2016 08:51-0400 BMI (Body Mass Index) 36.72 kg/m2 Gay Cabezas [facility] Work Phone: 02-05-2016 08:51-0400 Body Temperature 98 [degF] Gay Cabezas [facility] Work Phone: Comment on above: Method: Temporal 02-05-2016 08:51-0400 Body weight 92.53 kg Gay Cabezas [facility] Work Phone: 02-05-2016 08:51-0400 BP Diastolic 88 mm[Hg] Gay Cabezas [facility] Work Phone: Comment on above: Patient Position: Sitting; Cuff Location : Left Arm; Cuff Size: Large 02-05-2016 08:51-0400 BP Systolic 138 mm[Hg] Gay Cabezas [facility] Work Phone: Comment on above: Patient Position: Sitting; Cuff Location : Left Arm; Cuff Size: Large 02-05-2016 08:51-0400 BSA (Body Surface Area) 1.94 m2 Gay Villavicencioshelly [facility] Work Phone: 02-05-2016 08:51-0400 Height 158.75 cm Gay Villavicencioshelly [facility] Work Phone: 02-05-2016 08:51-0400 Pulse (Heart Rate) 96 /min Gay Cabezas [facility] Internal Medicine Work Phone: Comment on above: Pattern: Regular 02-05-2016 08:51-0400 Pulse Oximetry 98 % Rosannaduane Scales [facility] Work Phone: Comment on above: Room air 02-05-2016 08:51-0400 Respiratory Rate 16 /min Gay Villavicencioshelly [facility] Work Phone: Comment on above: Pattern: Unlabored 02-05-2016 08:51-0400 SaO2% (BldA) [Mass fraction] 98 % Gay Raulito [facility]; [facility] Work Phone: Comment on above: Room air 02-05-2016 08:51-0400 Weight 92.53 kg Rosanna Scales [facility] Work Phone: 09-09-2014 07:15-0400 BMI (Body Mass Index) 35.28 kg/m2 Taya Slarb [employer] [facility] Work Phone: 09-09-2014 07:15-0400 Body Temperature 99.4 [degF] Taya Urirb [employer] [facility] Work Phone: 09-09-2014 07:15-0400 Body weight 88.91 kg Taya Urirb [employer] [facility] Work Phone: 09-09-2014 07:15-0400 BP Diastolic 76 mm[Hg] Taya Slarb [employer] [facility] Work Phone: Comment on above: Patient Position: Sitting; Cuff Location : Left Arm; Cuff Size: Standard 09-09-2014 07:15-0400 BP Systolic 122 mm[Hg] Taya Urirb [employer] [facility] Work Phone: Comment on above: Patient Position: Sitting; Cuff Location : Left Arm; Cuff Size: Standard 09-09-2014 07:15-0400 BSA (Body Surface Area) 1.91 m2 Taya Urirb [employer] [facility] Work Phone: 09-09-2014 07:15-0400 Height 158.75 cm Taya Urirb [employer] [facility] Work Phone: 09-09-2014 07:15-0400 Pulse (Heart Rate) 102 /min Taya Grewalrb [employer] [facility] Work Phone: Comment on above: Pattern: Regular 09-09-2014 07:15-0400 Pulse Oximetry 98 % Rosanna Fast [facility] Work Phone: Comment on above: Room air 09-09-2014 07:15-0400 Respiratory Rate 18 /min Taya Urirb [employer] [facility] Work Phone: Comment on above: Pattern: Unlabored 09-09-2014 07:15-0400 SaO2% (BldA) [Mass fraction] 98 % Taya Slarb [employer] [facility]; [facility] Work Phone: Comment on above: Room air 09-09-2014 07:15-0400 Weight 88.91 kg Rosanna Fast [facility] Work Phone: 05-10-2014 09:50-0500 BMI (Body Mass Index) 34.38 kg/m2 Gay Cabezas [facility] Work Phone: Comment on above: Pt had gum in her mouth during temp. 05-10-2014 09:50-0500 Body Temperature 99 [degF] Gay Raulito [facility] Work Phone: Comment on above: Method: Oral Pt had gum in her mo uth during temp. 05-10-2014 09:50-0500 Body weight 86.64 kg Gay Cabezas [facility] Work Phone: Comment on above: Pt had gum in her mouth during temp. 05-10-2014 09:50-0500 BP Diastolic 90 mm[Hg] Gay Cabezas [facility] Work Phone: Comment on above: Patient Position: Sitting; Cuff Location : Left Arm; Cuff Size: Large Pt had gum in her mo uth during temp. 05-10-2014 09:50-0500 BP Systolic 148 mm[Hg] Gay Cabezas [facility] Work Phone: Comment on above: Patient Position: Sitting; Cuff Location : Left Arm; Cuff Size: Large Pt had gum in her mo uth during temp. 05-10-2014 09:50-0500 BSA (Body Surface Area) 1.89 m2 Gay Cabezas [facility] Work Phone: Comment on above: Pt had gum in her mouth during temp. 05-10-2014 09:50-0500 Height 158.75 cm Gay Cabezas [facility] Work Phone: Comment on above: Pt had gum in her mouth during temp. 05-10-2014 09:50-0500 Pulse (Heart Rate) 96 /min Gay Cabezas [facility] Work Phone: Comment on above: Pattern: Regular Pt had gum in her mo uth during temp. 05-10-2014 09:50-0500 Respiratory Rate 16 /min Gay Cabezas [facility] Work Phone: Comment on above: Pattern: Unlabored Pt had gum in her mo uth during temp. 05-10-2014 09:50-0500 Weight 86.64 kg Rosanna Scales [facility] Work Phone: Comment on above: Pt had gum in her mouth during temp. 05-03-2013 13:53-0500 BMI (Body Mass Index) 31.14 kg/m2 Gay Cabezas [facility] Work Phone: 05-03-2013 13:53-0500 Body Temperature 98.7 [degF] Gay Cabezas [facility] Work Phone: 05-03-2013 13:53-0500 Body weight 78.47 kg Gay Cabezas [facility] Work Phone: 05-03-2013 13:53-0500 BP Diastolic 66 mm[Hg] Gay Cabezas [facility] Work Phone: Comment on above: Patient Position: Sitting; Cuff Location : Left Arm; Cuff Size: Large 05-03-2013 13:53-0500 BP Systolic 120 mm[Hg] Gay Cabezas [facility] Work Phone: Comment on above: Patient Position: Sitting; Cuff Location : Left Arm; Cuff Size: Large 05-03-2013 13:53-0500 BSA (Body Surface Area) 1.81 m2 Gay Cabezas [facility] Work Phone: 05-03-2013 13:53-0500 Height 158.75 cm Gay Cabezas [facility] Work Phone: 05-03-2013 13:53-0500 Pulse (Heart Rate) 84 /min [facility] Work Phone: Comment on above: Pattern: Regular 05-03-2013 13:53-0500 Respiratory Rate 16 /min Gay Cabezas [facility] Work Phone: Comment on above: Pattern: Unlabored 05-03-2013 13:53-0500 Weight 78.47 kg Rosanna Scales [facility] Work Phone: 01-22-2013 11:39-0400 BMI (Body Mass Index) 29.45 kg/m2 Maria Teresa Marks RN [facility] Work Phone: 01-22-2013 11:39-0400 Body Temperature 98.2 [degF] Maria Teresa Marks RN [facility] Work Phone: Comment on above: Method: Temporal 01-22-2013 11:39-0400 Body weight 73.03 kg Maria Teresa Marks RN [facility] Work Phone: 01-22-2013 11:39-0400 BP Diastolic 70 mm[Hg] Maria Teresa Marks RN [facility] Work Phone: Comment on above: Patient Position: Sitting; Cuff Location : Left Arm; Cuff Size: Standard 01-22-2013 11:39-0400 BP Systolic 124 mm[Hg] Maria Teresa Marks RN [facility] Work Phone: Comment on above: Patient Position: Sitting; Cuff Location : Left Arm; Cuff Size: Standard 01-22-2013 11:39-0400 BSA (Body Surface Area) 1.74 m2 Maria Teresa Marks RN [facility] Work Phone: 01-22-2013 11:39-0400 Height 157.48 cm Maria Teresa Marks RN [facility] Work Phone: 01-22-2013 11:39-0400 Pulse (Heart Rate) 72 /min Maria Teresa Marks RN [facility] Work Phone: Comment on above: Pattern: Regular 01-22-2013 11:39-0400 Pulse Oximetry 98 % Rosanan Fast [facility] Work Phone: Comment on above: Room air 01-22-2013 11:39-0400 Respiratory Rate 16 /min Maria Teresa Marks RN [facility] Work Phone: Comment on above: Pattern: Unlabored 01-22-2013 11:39-0400 SaO2% (BldA) [Mass fraction] 98 % Maria Teresa Marks RN [facility]; [facility] Work Phone: Comment on above: Room air 01-22-2013 11:39-0400 Weight 73.03 kg Rosanna Scales [facility] Work Phone: 06-09-2012 08:41-0500 BMI (Body Mass Index) 29.45 kg/m2 Priscilla Tuttle LPN [facility] Work Phone: 06-09-2012 08:41-0500 Body Temperature 99.6 [degF] Priscilla Tuttle LPN [facility] Work Phone: Comment on above: Method: Tympanic 06-09-2012 08:41-0500 Body weight 73.03 kg Priscilla Tuttle [employer] [facility] Work Phone: 06-09-2012 08:41-0500 BP Diastolic 72 mm[Hg] Priscilla Tuttle LPN [facility] Work Phone: Comment on above: Patient Position: Sitting; Cuff Location : Left Arm; Cuff Size: Standard 06-09-2012 08:41-0500 BP Systolic 110 mm[Hg] Priscilla Blankenshipti [employer] [facility] Work Phone: Comment on above: Patient Position: Sitting; Cuff Location : Left Arm; Cuff Size: Standard 06-09-2012 08:41-0500 BSA (Body Surface Area) 1.74 m2 Priscilla Tuttle LPN [facility] Work Phone: 06-09-2012 08:41-0500 Height 157.48 cm Priscilla Tuttle [employer] [facility] Work Phone: 06-09-2012 08:41-0500 Pulse (Heart Rate) 88 /min Priscilla Tuttle LPN [facility] Work Phone: Comment on above: Pattern: Regular 06-09-2012 08:41-0500 Respiratory Rate 16 /min Priscilla Tuttle [employer] [facility] Work Phone: Comment on above: Pattern: Unlabored 06-09-2012 08:41-0500 Weight 73.03 kg Rosanna Scales [facility] Work Phone: 04-27-2012 10:03-0500 BMI (Body Mass Index) 29.45 kg/m2 Gay Cabezas [facility] Work Phone: 04-27-2012 10:03-0500 Body Temperature 98.4 [degF] Gay Cabezas [facility] Work Phone: 04-27-2012 10:03-0500 Body weight 73.03 kg Gay Cabeazs [facility] Work Phone: 04-27-2012 10:03-0500 BP Diastolic 70 mm[Hg] Gay Cabezas [facility] Work Phone: Comment on above: Patient Position: Sitting; Cuff Location : Left Arm; Cuff Size: Large 04-27-2012 10:03-0500 BP Systolic 108 mm[Hg] Gay Cabezas [facility] Work Phone: Comment on above: Patient Position: Sitting; Cuff Location : Left Arm; Cuff Size: Large 04-27-2012 10:03-0500 BSA (Body Surface Area) 1.74 m2 Gay Cabezas [facility] Work Phone: 04-27-2012 10:03-0500 Height 157.48 cm Gay Cabezas [facility] Work Phone: 04-27-2012 10:03-0500 Pulse (Heart Rate) 104 /min Gay Cabezas [facility] Work Phone: Comment on above: Pattern: Regular 04-27-2012 10:03-0500 Pulse Oximetry 98 % Rosanna Manuel [facility] Work Phone: Comment on above: Room air 04-27-2012 10:03-0500 Respiratory Rate 16 /min Gay Cabezas [facility] Work Phone: Comment on above: Pattern: Unlabored 04-27-2012 10:03-0500 SaO2% (BldA) [Mass fraction] 98 % Gayalia Fariasvitaliy [facility]; [facility] Work Phone: Comment on above: Room air 04-27-2012 10:03-0500 Weight 73.03 kg Rosanna Fast [facility] Work Phone: 02-21-2012 09:30-0400 BMI (Body Mass Index) 29.73 kg/m2 Rosanna Fast [facility] Work Phone: 02-21-2012 09:30-0400 Body Temperature 99 [degF] Rosanna Fast [facility] Work Phone: Comment on above: Method: Oral 02-21-2012 09:30-0400 Body weight 73.74 kg Rosanna Fast [facility] Work Phone: 02-21-2012 09:30-0400 BP Diastolic 74 mm[Hg] Rosanna Fast [facility] Work Phone: Comment on above: Patient Position: Sitting; Cuff Location : Left Arm; Cuff Size: Standard 02-21-2012 09:30-0400 BP Systolic 120 mm[Hg] Rosanna Fast [facility] Work Phone: Comment on above: Patient Position: Sitting; Cuff Location : Left Arm; Cuff Size: Standard 02-21-2012 09:30-0400 BSA (Body Surface Area) 1.75 m2 Rosanna Fast [facility] Work Phone: 02-21-2012 09:30-0400 Height 157.48 cm Rosanna Fast [facility] Work Phone: 02-21-2012 09:30-0400 Pulse (Heart Rate) 76 /min Rosanna Fast [facility] Work Phone: Comment on above: Pattern: Regular 02-21-2012 09:30-0400 Pulse Oximetry 99 % Rosanna Fast [facility] Work Phone: Comment on above: Room air 02-21-2012 09:30-0400 Respiratory Rate 16 /min Rosanna Fast [facility] Work Phone: 02-21-2012 09:30-0400 SaO2% (BldA) [Mass fraction] 99 % Rosanna Fast DO Work Phone: [facility]; [facility] Work Phone: Comment on above: Room air 02-21-2012 09:30-0400 Weight 73.74 kg Rosanna Scales [facility] Work Phone: 01-17-2012 09:31-0400 BMI (Body Mass Index) 29.16 kg/m2 Gay Cabezas [facility] Work Phone: 01-17-2012 09:31-0400 Body Temperature 97 [degF] Gay Cabezas [facility] Work Phone: 01-17-2012 09:31-0400 Body weight 73.48 kg Gay Cabezas [facility] Work Phone: 01-17-2012 09:31-0400 BP Diastolic 72 mm[Hg] Gay Cabezas [facility] Work Phone: Comment on above: Patient Position: Sitting; Cuff Location : Left Arm; Cuff Size: Large 01-17-2012 09:31-0400 BP Systolic 120 mm[Hg] Gay Cabezas [facility] Work Phone: Comment on above: Patient Position: Sitting; Cuff Location : Left Arm; Cuff Size: Large 01-17-2012 09:31-0400 BSA (Body Surface Area) 1.76 m2 Gay Cabezas [facility] Work Phone: 01-17-2012 09:31-0400 Height 158.75 cm Gay Cabezas [facility] Work Phone: 01-17-2012 09:31-0400 Pulse (Heart Rate) 80 /min Gay Cabezas [facility] Work Phone: Comment on above: Pattern: Regular 01-17-2012 09:31-0400 Respiratory Rate 16 /min Gay Cabezas [facility] Work Phone: Comment on above: Pattern: Unlabored 01-17-2012 09:31-0400 Weight 73.48 kg Rosanna Scales [facility] Work Phone: Encounters Encounter Date Encounter Type Care Provider Facility Start: 11-10-2024 End: 11-10-[address] Gay Gan DO -[facility] Work Phone: Start: 11-10-2024 End: 11-10-2024 ambulatory Rosanna Fast [place] Start: 11-05-2024 ambulatory Leti Conway y:[facility] Start: 11-04-2024 End: 11-04-[address] Gay Gan DO -[facility] Work Phone: Start: 11-04-2024 End: 11-04-2024 ambulatory Rosanna Fast Facility:[facility] Start: 11-04-2024 End: 11-04-2024 Patient encounter procedure Park DEE -[facility] Work Phone: Start: 11-04-2024 End: 11-04-[address] Rosanna Scales DO Work Phone: -[facility] Start: 11-01-2024 ambulatory Rosanna Fast Facility:[facility] Start: 10-29-2024 ambulatory Rosanna Fast Facility:[facility] Start: 10-29-2024 Non-patient / Non-visit Dr. Gay Gan DO [facility] Start: 10-28-2024 Non-patient / Non-visit Dr. Gay Gan DO [facility] Start: 10-28-2024 ambulatory Gay Hogan cility:[facility] Start: 10-28-2024 End: 10-29-2024 Evaluation and management of inpatient Dr. Gay Gan DO [facility] Work Phone: Start: 10-26-2024 End: 10-26-2024 Patient encounter procedure Jaqueline DEE -[facility] Work Phone: Start: 10-26-2024 End: 10-26-[address] Rosanna Scales DO Work Phone: -[facility] Start: 10-26-2024 End: 10-26-2024 ambulatory Rosanna Fast Facility:[facility] Start: 10-13-2024 End: 10-13-2024 Patient encounter procedure Jaqueline Montgomerykaren DEE -[facility] Work Phone: Start: 10-13-2024 End: 10-13-[address] Rosanna Scales DO Work Phone: [facility] Work Phone: Start: 09-30-2024 End: 09-30-2024 Patient encounter procedure Jaqueline Montgomerykaren DEE -[facility] Work Phone: Start: 09-30-2024 End: 09-30-[address] Rosanna Scales DO Work Phone: [facility] Work Phone: Start: 09-30-2024 End: 09-30-2024 ambulatory Gay Gan Facility:[facility] Start: 09-09-2024 End: 09-09-[address] Do Frankel MD -[facility] Work Phone: Start: 09-09-2024 End: 09-09-2024 ambulatory Do Frankel Facility:[facility] Start: 08-16-2024 End: 08-16-2024 ambulatory DO [facility] Start: 08-11-2024 End: 08-11-[address] Gay Gan DO -[facility] Work Phone: Start: 08-11-2024 End: 08-11-2024 ambulatory Gay Gan Facility:[facility] Start: 08-10-2024 End: 08-10-2024 Patient encounter procedure Debbie SHAW -[facility] Work Phone: Start: 08-10-2024 End: 08-10-2024 ambulatory Debbie Cavazos Facility:[facility] Start: 07-29-2024 End: 07-29-2024 ambulatory DO [facility] Start: 07-16-2024 End: 07-16-[address] Gay Gan DO -[facility] Work Phone: Start: 07-16-2024 End: 07-16-2024 ambulatory Gay Gan Facility:[facility] Start: 07-01-2024 End: 07-01-2024 Patient encounter procedure Marcela BATES -[facility] Work Phone: Start: 07-01-2024 End: 07-01-2024 ambulatory Marcela Espana Facility:[facility] Start: 06-16-2024 End: 06-16-[address] Do Frankel MD -[facility] Work Phone: Start: 06-16-2024 End: 06-16-2024 ambulatory Do Frankel Facility:[facility] Start: 05-28-2024 End: 05-28-2024 ambulatory Gay Gan Facility:[facility] Start: 05-21-2024 End: 05-21-2024 ambulatory Rosanna Fast Facility:[facility] Start: 05-21-2024 End: 05-21-2024 ambulatory Rosanna Fast Facility:[facility] Start: 05-19-2024 Encounter for other preprocedural examination Justino Mast [facility] Start: 05-19-2024 ambulatory Rosanna Fast Facility:[facility] Start: 05-07-2024 End: 05-07-2024 ambulatory Rosanna Fast Facility:[facility] Start: 05-06-2024 End: 05-06-2024 Emergency department patient visit GAYLE DUARTE ARREOLA [facility] Start: 03-09-2024 End: 03-09-2024 ambulatory Rosanna Fast Facility:[facility] Start: 03-04-2024 End: 03-04-2024 ambulatory Rosanna Fast Facility:[facility] Start: 02-02-2024 End: 02-02-2024 ambulatory Rosanna Fast Facility:[facility] Start: 08-21-2023 End: 08-21-2023 ambulatory RUTH YING Facility:[facility] Start: 08-21-2023 End: 08-21-2023 ambulatory Ruth Ying MD Work Phone: Allergy Comment on above: Eosinophilic esophag itis (Primary Dx); Seasonal allergic rhinitis due to pollen; Mild intermittent asthma without complication; Urticaria Start: 08-21-2023 End: 08-21-2023 Telemedicine consultation with patient Ruth Ying MD Work Phone: Allergy Start: 12-05-2022 Non-patient / Non-visit Dr. Rosanna Scales Work Phone: [facility] Start: 12-05-2022 End: 12-05-2022 Admission to same day surgery center Dr. Rosanna Scales Work Phone: [facility] Work Phone: Start: 12-05-2022 End: 12-05-[address] Rosanna Scales Work Phone: [facility] Work Phone: Start: 09-25-2022 End: 09-25-[address] Rosanna Scales Work Phone: [facility] Work Phone: Start: 09-12-2022 End: 09-12-[address] Rosanna Scales Work Phone: [facility] Work Phone: Start: 09-12-2022 End: 09-12-[address] Rosanna Scales Work Phone: [facility] Start: 09-11-2022 End: 09-11-[address] Rosanna Scales Work Phone: [facility] Start: 09-07-2022 Non-patient / Non-visit Dr. Rosanna Scales Work Phone: [facility] Start: 09-06-2022 Non-patient / Non-visit Dr. Rosanna Scales Work Phone: [facility] Start: 09-05-2022 Non-patient / Non-visit Dr. Rosanna Scales Work Phone: [facility] Start: 09-04-2022 Non-patient / Non-visit Dr. Rosanna Scales Work Phone: [facility] Start: 09-04-2022 End: 09-07-2022 Evaluation and management of inpatient Dr. Rosanna Scales Work Phone: [facility] Start: 09-04-2022 End: 09-04-[address] Rosanna Scales Work Phone: [facility] Start: 09-02-2022 End: 09-02-[address] Rosanna Scales Work Phone: [facility] Start: 08-30-2022 End: 08-30-[address] Rosanna Scales Work Phone: [facility] Start: 08-30-2022 End: 08-30-[address] Rosanna Scales Work Phone: [facility] Start: 08-27-2022 End: 08-27-[address] Rosanna Scales Work Phone: [facility] Start: 08-23-2022 End: 08-23-[address] Rosanna Scales Work Phone: [facility] Work Phone: Start: 08-23-2022 End: 08-23-[address] Rosanna Scales Work Phone: [facility] Start: 08-22-2022 End: 08-22-[address] Rosanna Scales Work Phone: [facility] Work Phone: Start: 08-22-2022 End: 08-22-[address] Rosanna Scales Work Phone: [facility] Start: 08-20-2022 End: 08-20-[address] Rosanna Scales Work Phone: [facility] Start: 08-16-2022 End: 08-16-[address] Rosanna Scales Work Phone: [facility] Work Phone: Start: 08-16-2022 End: 08-16-[address] Rosanna Scales Work Phone: [facility] Start: 08-16-2022 End: 08-16-[address] Rosanna Scales Work Phone: [facility] Start: 08-13-2022 End: 08-13-[address] Rosanna Scales Work Phone: [facility] Work Phone: Start: 08-13-2022 End: 08-13-[address] Rosanna Scales Work Phone: [facility] Start: 08-09-2022 End: 08-09-[address] Rosanna Scales Work Phone: [facility] Work Phone: Start: 08-09-2022 End: 08-09-[address] Rosanna Scales Work Phone: [facility] Start: 08-08-2022 End: 08-08-[address] Rosanna Scales Work Phone: [facility] Start: 08-05-2022 End: 08-05-[address] Rosanna Scales Work Phone: [facility] Work Phone: Start: 08-05-2022 End: 08-05-[address] Rosanna Scales Work Phone: [facility] Start: 08-05-2022 End: 08-05-[address] Rosanna Scales Work Phone: [facility] Start: 08-02-2022 End: 08-02-[address] Rosanna Scales Work Phone: [facility] Start: 08-02-2022 End: 08-02-[address] Rosanna Scales Work Phone: [facility] Start: 07-30-2022 End: 07-30-[address] Rosanna Galeas Phone: [facility] Start: 07-26-2022 End: 07-26-[address] Rosanna Scales Work Phone: [facility] Start: 07-24-2022 End: 07-24-[address] Rosanna Scales Work Phone: [facility] Work Phone: Start: 07-24-2022 End: 07-24-[address] Rosanna Galeas Phone: [facility], [facility] Start: 07-23-2022 Non-patient / Non-visit Dr. Rosanna Scales Work Phone: [facility] Start: 07-23-2022 End: 07-23-[address] Rosanna Scales Work Phone: [facility] Work Phone: Start: 07-23-2022 End: 07-23-[address] Rosanna Scales Work Phone: [facility], Outpatients Start: 07-10-2022 End: 07-10-[address] Rosanna Scales Work Phone: [facility] Start: 07-05-2022 End: 07-05-[address] Rosanna Scales Work Phone: [facility] Work Phone: Start: 07-05-2022 End: 07-05-[address] Rosanna Scales Work Phone: [facility] Start: 06-26-2022 End: 06-26-[address] Rosanna Scales Work Phone: [facility] Start: 05-27-2022 End: 05-27-[address] Rosanna Scales Work Phone: [facility] Start: 05-09-2022 End: 05-09-[address] Rosanna Scaels Work Phone: [facility] Work Phone: Start: 05-09-2022 End: 05-09-[address] Rosanna Scales Work Phone: [facility] Ul[facility]ound Start: 04-29-2022 End: 04-29-[address] Rosanna Scales Work Phone: [facility] Start: 04-08-2022 End: 04-08-[address] Rosanna Scales Work Phone: [facility] Work Phone: Start: 04-08-2022 End: 04-08-[address] Rosanna Scales Work Phone: [facility] Start: 04-04-2022 End: 04-04-[address] [facility] Start: 04-01-2022 End: 04-01-[address] Rosanna Scales Work Phone: [facility] Start: 03-04-2022 End: 03-04-[address] Rosanna Scales Work Phone: [facility] Work Phone: Start: 03-04-2022 End: 03-04-[address] Ros[facility] Scales [facility] Start: 03-04-2022 End: 03-04-[address] Rosanna Scales Work Phone: [facility] Start: 02-13-2022 End: 02-14-2022 ambulatory TYESHA YOO MD Facility:[facility] Start: 02-13-2022 End: 02-13-2022 Patient encounter procedure TYESHA YOO MD [facility] Start: 01-30-2022 End: 01-30-2022 ambulatory [facility] Work Phone: Start: 01-30-2022 End: 01-30-2022 [facility] Start: 01-29-2022 Review Rosanna Fast DO Work Phone: [facility] Start: 01-29-2022 End: 01-29-2022 Office outpatient visit 15 minutes Rosanna Fast DO Work Phone: [facility] Start: 01-28-2022 End: 01-28-2022 [facility] Start: 01-28-2022 Review Rosanna Fast DO Work Phone: [facility] Start: 01-25-2022 End: 01-25-2022 Phone Encounter Rosanna Fast DO Work Phone: [facility] Start: 01-25-2022 End: 01-25-2022 Rosanna Fast DO Work Phone: [facility] Start: 01-25-2022 ambulatory Rosanna A Fast DO [facility] Start: 09-05-2021 End: 09-05-[address] Rosanna Scales Work Phone: [facility] Start: 08-30-2021 End: 08-30-[address] Rosanna Scales Work Phone: [facility] Start: 07-12-2021 End: 07-12-2021 Patient encounter procedure Salud Blanco APRN.NUCLEAR PLANT TECHNICAL ADVISOR Work Phone: [facility] Comment on above: URI, acute (Primary Dx); Pressure sensation in right ear; Sinus pressure Start: 07-12-2021 End: 07-12-[address] Rosanna Scales Work Phone: [facility] Start: 01-15-2021 End: 01-15-2021 Office outpatient visit 5 minutes Rosanna Fast DO Work Phone: [facility] Start: 01-15-2021 End: 01-15-2021 Annotation/Addendum Rosanna Fast DO Work Phone: [facility] Start: 01-15-2021 End: 01-15-2021 Rosanna Fast DO Work Phone: [facility] Start: 01-12-2021 End: 01-14-2021 Office outpatient visit 25 minutes Rosanna Fast DO Work Phone: [facility] Start: 06-14-2020 End: 06-14-2020 Phone Encounter Rosanna Fast [facility] Start: 06-14-2020 End: 06-14-2020 Rosanna Fast DO Work Phone: [facility] Start: 06-02-2020 End: 06-05-2020 Phone Encounter Rosanna Fast [facility] Start: 06-02-2020 End: 06-05-2020 Rosanna Fast DO Work Phone: [facility] Start: 06-02-2020 End: 06-02-2020 Phone Encounter Rosanna Fast [facility] Start: 06-02-2020 End: 06-02-2020 Rosanna Fast DO Work Phone: [facility] Start: 06-02-2020 End: 06-02-2020 Office outpatient visit 15 minutes Rosanna Fast [facility] Start: 05-05-2020 End: 05-05-2020 Office outpatient visit 5 minutes Rosanna Fast [facility] Start: 12-06-2019 End: 12-07-2019 Phone Encounter Rosanna Fast [facility] Start: 12-06-2019 Review Rosanna Fast [facility] Start: 12-06-2019 End: 12-07-2019 Rosanna Fast DO Work Phone: [facility] Start: 10-11-2019 End: 10-12-2019 Office outpatient visit 25 minutes Rosanna Fast [facility] Start: 07-16-2019 End: 07-18-2019 Office outpatient visit 15 minutes Rosanna Fast [facility] Start: 07-12-2019 End: 07-12-2019 Office outpatient visit 5 minutes Rosanna Fast [facility] Start: 06-09-2019 End: 06-10-2019 Office outpatient visit 15 minutes Rosanna Fast [facility] Start: 09-30-2018 End: 09-30-2018 Office outpatient visit 15 minutes Rosanna Fast [facility] Start: 08-03-2018 End: 08-03-2018 Office outpatient visit 5 minutes Rosanna Fast [facility] Start: 05-20-2018 End: 05-20-2018 Office outpatient visit 25 minutes Rosanna Fast [facility] Start: 03-09-2018 End: 03-09-2018 Office outpatient visit 10 minutes Rosanna Fast [facility] Start: 01-07-2018 End: 01-07-2018 Office outpatient visit 5 minutes Rosanna Fast [facility] Start: 11-17-2017 End: 11-17-2017 Office outpatient visit 5 minutes Rosanna Fast [facility] Start: 11-10-2017 End: 11-10-2017 Office outpatient visit 25 minutes Rosanna Fast [facility] Start: 06-16-2017 End: 06-16-2017 Office outpatient visit 15 minutes Rosanna Fast [facility] Start: 06-09-2017 End: 06-09-2017 Office outpatient visit 5 minutes Rosanna Fast [facility] Start: 06-04-2017 End: 06-06-2017 Office outpatient visit 15 minutes Rosanna Fast [facility] Start: 05-06-2017 End: 05-06-2017 Office outpatient visit 25 minutes Rosanna Fast [facility] Start: 03-28-2017 End: 03-30-2017 Office outpatient visit 15 minutes Rosanna Fast [facility] Start: 03-26-2017 End: 03-26-2017 Office outpatient visit 15 minutes Rosanna Fast [facility] Start: 03-19-2017 End: 03-19-2017 Office outpatient visit 15 minutes Rosanna Fast [facility] Start: 02-19-2017 End: 02-19-2017 Office outpatient visit 15 minutes Rosanna Fast [facility] Start: 02-05-2017 End: 02-05-2017 Office outpatient visit 15 minutes Rosanna Fast [facility] Start: 01-22-2017 End: 01-22-2017 Office outpatient visit 5 minutes Rosanna Fast [facility] Start: 01-03-2017 End: 01-03-2017 Office outpatient visit 25 minutes Rosanna Fast [facility] Start: 12-03-2016 End: 12-03-2016 Office outpatient visit 25 minutes Rosanna Fast [facility] Start: 11-18-2016 End: 11-18-2016 Office outpatient visit 25 minutes Rosanna Fast [facility] Start: 04-12-2016 End: 04-12-2016 Patient encounter Rosanna Fast [facility] Start: 04-12-2016 End: 04-12-2016 Rosanna Fast DO Work Phone: [facility] Start: 04-12-2016 End: 04-12-2016 Office outpatient visit 25 minutes Rosanna Fast [facility] Start: 04-11-2016 End: 04-11-2016 Phone Encounter Rosanna Fast [facility] Start: 04-11-2016 End: 04-11-2016 Rosanna Fast DO Work Phone: [facility] Start: 03-11-2016 End: 03-11-2016 Office outpatient visit 5 minutes Rosanna Fast [facility] Start: 02-27-2016 End: 02-27-2016 Office outpatient visit 15 minutes Rosanna Fast [facility] Start: 02-05-2016 End: 02-05-2016 Office outpatient visit 25 minutes Rosanna Fast [facility] Start: 02-05-2016 End: 02-05-2016 Patient encounter procedure Rosanna Fast DO Work Phone: [facility] Start: 09-09-2014 End: 09-09-2014 Office outpatient visit 15 minutes Rosanna Fast [facility] Start: 05-10-2014 End: 05-10-2014 Office outpatient visit 25 minutes Rosanna Manuel [facility] Start: 10-12-2013 End: 10-13-2013 Patient encounter Rosanna Fast [facility] Start: 10-12-2013 End: 10-13-2013 Rosanna Fast DO Work Phone: [facility] Start: 06-03-2013 End: 06-03-2013 Patient encounter Rosanna Fast [facility] Start: 06-03-2013 End: 06-03-2013 Rosanna Fast DO Work Phone: [facility] Start: 05-05-2013 End: 05-05-2013 Patient encounter Rosanna Fast [facility] Start: 05-05-2013 End: 05-05-2013 Rosanna Fast DO Work Phone: [facility] Start: 05-03-2013 End: 05-03-2013 Patient encounter Rosanna Fast [facility] Start: 05-03-2013 End: 05-03-2013 Physical examination Rosanna Fast DO Work Phone: [facility] Start: 05-03-2013 End: 05-03-2013 Rosanna Fast DO Work Phone: [facility] Start: 01-22-2013 End: 01-22-2013 Patient encounter Rosanna Fast [facility] Start: 01-22-2013 End: 01-22-2013 Rosanna Fast DO Work Phone: [facility] Start: 06-09-2012 End: 06-09-2012 Office outpatient visit 15 minutes Rosanna Fast [facility] Start: 04-27-2012 End: 04-27-2012 Patient encounter Rosanna Fast [facility] Start: 04-27-2012 End: 04-27-2012 Rosanna Fast DO Work Phone: [facility] Start: 02-21-2012 End: 02-21-2012 Patient encounter Rosanna Fast [facility] Start: 02-21-2012 End: 02-21-2012 Rosanna Scales DO Work Phone: [facility] Start: 01-17-2012 End: 01-17-2012 Patient encounter Rosanna Scales [facility] Start: 01-17-2012 End: 01-17-2012 Rosanna Scales DO Work Phone: [facility] End: 03-26-2017 Patient encounter procedure Milind Carrizales LPN [facility]; [facility] Work Phone: Physical examination Nany Rubalcava [facility]; [facility] Work Phone: Physical examination N[facility]; [facility] Work Phone: Procedures Date Procedure Procedure Detail Performing Clinician Start: 11-04-[address] Rosanna Scales DO Work Phone: Start: 10-28-2024 Serologic test for syphilis Dr. Rosanna lopez DO Work Phone: Start: 10-28-2024 Ultrasound scan for growth Dr. Karin Scales DO Work Phone: Start: 10-26-2024 Ultrasonography for biophysical profile without non-stress testing Dr. Rosanna Scales DO Work Phone: Start: 09-30-2024 Serologic test for syphilis Dr. Rosanna lopez DO Work Phone: Start: 12-05-2022 End: 12-05-2022 Procedure Note: See Note; NOTES: [facility] Medical Records Department [address] [place] [id number] EGD Report MR#: [id number] Acct: [id number] Name: CRISTELA SHAH Rep #: [id number] : 1995 27 From: Justino Mast DO PCP: Dr. Rosanna Scales DO Status:[facility] Patient Name: Cristela Shah Procedure Date: 12/05/2022 11:35 AM Date of : 1995 Age: 27 Procedure: Upper GI endoscopy Indications: Dysphagia Providers: Justino Mast DO Referring MD: Justino Mast DO Medicines: Monitored Anesthesia Care Patient Profile: This is a 27 year old female. Refer to note in patient chart for documentation of history and physical. Patient has symptoms of dysphagia with both liquids and solids. Complications: No immediate complications. Procedure: Pre-Anesthesia Assessment: - Prior to the procedure, a History and Physical was performed, and patient medications and allergies were reviewed. The patient is competent. The risks and benefits of the procedure and the sedation options and risks were discussed with the patient. All questions were answered and informed consent was obtained. Patient identification and proposed procedure were verified by the physician in the pre-procedure area. Mental Status Examination: alert and oriented. Airway Examination: normal oropharyngeal airway and neck mobility. CV Examination: normal. Prophylactic Antibiotics: The patient does not require prophylactic antibiotics. Prior Anticoagulants: The patient has taken no anticoagulant or antiplatelet agents. After reviewing the risks and benefits, the patient was deemed in satisfactory condition to undergo the procedure. The anesthesia plan was to use minimal sedation / analgesia (anxiolysis). Immediately prior to administration of medications, the patient was re-assessed for adequacy to receive sedatives. The heart rate, respiratory rate, oxygen saturations, blood pressure, adequacy of pulmonary ventilation, and response to care were monitored throughout the procedure. The physical status of the patient was re-assessed after the procedure. After obtaining informed consent, the endoscope was passed under direct vision. Throughout the procedure, the patient's blood pressure, pulse, and oxygen saturations were monitored continuously. The gastroscope was introduced through the mouth, and advanced to the second part of duodenum. The upper GI endoscopy was accomplished without difficulty. The patient tolerated the procedure well. Scope In: 11:46:03 AM Scope Out: 11:52:28 AM Total Procedure Duration Time 0 hours 6 minutes 25 seconds Findings: Mucosal changes including longitudinal furrows and small-caliber esophagus were found in the entire esophagus. Biopsies were obtained from the proximal and distal esophagus with cold forceps for histology of suspected eosinophilic esophagitis. Verification of patient identification for the specimen was done. Estimated blood loss was minimal. One benign-appearing, intrinsic moderate (circumferential scarring or stenosis; an endoscope may pass) stenosis was found 21 to 23 cm from the incisors. The stenosis was traversed. The dilation site was examined and showed mild mucosal disruption and moderate improvement in luminal narrowing. Estimated blood loss was minimal. A small hiatal hernia was present. Localized moderate inflammation characterized by congestion (edema), erythema and nodularity was found in the first portion of the duodenum. Biopsies were taken with a cold forceps for histology. Verification of patient identification for the specimen was done. Estimated blood loss was minimal. Impression: - Esophageal mucosal changes consistent with eosinophilic esophagitis. - Benign-appearing esophageal stenosis. - Small hiatal hernia. - Duodenitis. Biopsied. - Biopsies were taken with a cold forceps for evaluation of eosinophilic esophagitis. Recommendation: - Discharge patient to home. - Resume previous diet. - Use Protonix (pantoprazole) 20 mg PO BID. - Continue present medications. Procedure Code(s): --- Professional --- 28619, Esophagogastroduodenosco py, flexible, transoral; with biopsy, single or multiple CPT copyright 2021 [employer]. All rights reserved. The codes documented in this report are preliminary and upon hand zipper trimmer review may be revised to meet current compliance requirements. Justino Mast DO 12/05/2022 12:02:01 PM This report has been signed electronically. Number of Addenda: 0 Note Initiated On: 12/05/2022 11:35 AM 12/05/22 1202 Date Justino Mast DO Cosigner Signature: Date (if indicated) CC: Dr. Rosanna Scales DO; Justino Mast DO Date Dictated: 12/05/22 1135 Date Transcribed: Fuel Cell Designer: YOSVANY Signed Rosanna Scales DO Work Phone: Start: 12-05-2022 End: 12-05-2022 Procedure Note: See Note; NOTES: [facility] Medical Records Department [address] [place] [address] History Physical Exam 12/05/22 1136 MR#: [id number] Acct: [id number] Name: CRISTELA SHAH #: [id number] : 1995 27 From: Justino Friend DO PCP: Dr. Rosanna Scales, DO Status:[facility] Location: [place] [address] History and Physical Date of Admission: 12/05/22 HPI HPI Details: CRISTELA SHAH, is a 26 F who presents to the office today for Prior workup: ? US RUQ 2.12.21 without acute/chronic finding. ? HIDA 2.. EF 95% without reflux into common hepatic duct. 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 She underwent 09.04.22 r/t breech presentation. *BGI established 09.12.22 with dysphagia during PO intake with emesis; onset several years prior with worsening frequency in the last year. Denies history of EGD or studies performed. ROS Const Constitutional: No anorexia, fatigue, fever(s), weight change or sleep problems Eyes Eyes: No change in vision ENT ENT: No abnormal hearing, difficulty swallowing, mouth lesions, tongue swelling or throat swelling Resp Respiratory: No cough or shortness of breath Cardio Cardiology: No chest pain at rest, chest pain with exertion, shortness of breath or dyspnea on exertion Gastro GI: No difficulty swallowing Genitourinary-Female: No difficulty urinating or burning urination Musc Musculoskeletal: No joint pain, joint swelling, muscle weakness or decreased muscle mass Skin Skin: No hair loss in leg, yellowing of the eye, itchy eyes, rash, skin ulcer or skin swelling Neuro Neurology: No abnormal hearing, abnormal movements, confusion, unsteady gait/balance or memory loss Psych Psychiatric: No anxiety, No confusion and No memory loss Endo Endocrine: No fatigue or weight change Aller/Imm Allergy/Immunologic: No itchy eyes, throat swelling or tongue swelling Patric/Lymp Hematologic/Lymphatic: No easy bleeding, easy bruising or enlarged lymph nodes Exam Const General: cooperative and comfortable Nutritional Appearance: average body habitus and well nourished [facility] Head: normal to inspection Ears: hearing grossly normal bilaterally Nose: external nose normal Face and sinus: normal facial exam Mouth: oral mucosae normal Throat: posterior oropharynx normal Eyes General: appearance normal, both eyes and all related structures Neck Neck: normal visual inspection Chest Chest palpation inspection: normal inspection of the chest and normal palpation of entire chest wall Resp Effort Inspection: normal respiratory effort Auscultation: Bilateral: Clear to Auscultation Cardio Palpation: normal PMI Rate: regular rate Rhythm: regular rhythm GI Inspection: normal to inspection Auscultation: normal bowel sounds Percussion: normal to percussion Palpation: no hepatosplenomegaly Skin General: no rashes or lesions noted Neuro General: patient alert Extrem General: normal to inspection Psych Affect: normal affect Quality Reporting Tobacco Screening ([facility] 138) Smoking Status: Never smoker Assessment and Plan Assessment and Plan (1) Difficulty swallowing: Status: Chronic Plan: The differential diagnosis for esophageal dysphagia does include eosinophilic esophagitis, esophageal dysmotility, erosive esophagitis, esophageal stricture. She will undergo an upper endoscopy to evaluate upper GI tract. She was explained alternatives, risk, benefits including outstanding bleeding, infection, sepsis, perforation, need for emergent and . She will have an ASA of 1. We will also check food allergy testing along with an ROD and ANCA antibodies. Orders: Orders Allergen, Mini-Rast Today R13.10 - Dysphagia, unspecified Allergen, Rast Food Profile Today R13.10 - Dysphagia, unspecified ROD Comprehensive Panel Today R13.10 - Dysphagia, unspecified ANCA Today R13.10 - Dysphagia, unspecified Celiac Disease Profile Today R13.10 - Dysphagia, unspecified Immunoglobulin A Today R13.10 - Dysphagia, unspecified Immunoglobulin E Today R13.10 - Dysphagia, unspecified Immunoglobulin G Today R13.10 - Dysphagia, unspecified Immunoglobulin M Today R13.10 - Dysphagia, unspecified I have examined the patient and the H P has been reviewed. There are no clinical changes since date of exam. 12/05/22 1136 <Electronically signed by Justino Mast DO> Cosigner Signature (if applicable): CC: Dr. Rosanna Scales DO; Justino Mast DO Signed Rosanna Scales DO Work Phone: Start: 12-05-[address] Rosanna mello Work Phone: Start: 09-25-2022 End: 09-25-2022 Procedure Note: See Note; NOTES: [facility] [address] [place] [address] OFFICE VISIT Date of Service: 09/25/22 MR#: [id number] Acct: [id number] Name: CRISTELA SHAH Rep #: [id number] : 1995 Provider: AL Castaneda ams Age/Sex: 26/F [place] [facility] [place] Status: Signed Intake Vital Signs 09/25/22 14:08 09/25/22 14:09 Height 5 ft 4 in 5 ft 4 in Weight: 232 lb 8 oz BMI 39.9 BP 137/95 H Intake Visit Reasons: 2 WK FU Mammalogist Required: No Is patient in pain?: No Allergies No Known Allergies Allergy (Verified 09/25/22 14:07) Medications nifedipine 60 mg tablet,extended release 24 hr (Procardia XL) 60 mg PO DAILY gest htn 09/04/22 [History Confirmed 09/25/22] labetalol 100 mg tablet 100 mg PO BID #60 tabs 09/07/22 [Rx Confirmed 09/25/22] citalopram 40 mg tablet 40 mg PO DAILY depression #30 tabs 09/09/22 [Rx Confirmed 09/25/22] : No PFSH Medical History Abnormality of hormone Depression Family History Father Hypertension Other Colon cancer Diabetes Heart disease Social History adopted: No household members: spouse housing: house current occupational status: employed current occupation: [employer] pets and animals: Yes pets and animals: dog(s) history of recent travel: No Smoking Status: Never smoker alcohol intake: former details: social not while substance use type: does not use well-balanced diet: daily or most days caffeine: No eating out: 4 or more times/week during the past year weight has: decreased > 10 lbs deloris/gnosticist: Restoration seatbelt use: always do you feel safe at home: Yes additional social 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 Date Name GA/Weeks Outcome Route Bth Weight Infant Gen Labor Lgth Anesthesia Del Locatn Provider FOB 09/04/22 Jessica 37 live - full term 6lbs Male [facility] Delivery Date: 09/04/22 Last Updated by: Abigail Urbina Breech Depression Screen PHQ-2/9 PHQ-2 Over the last 2 weeks, how often have you been bothered by any of the following problems? 1. Little interest or pleasure in doing things: not at all 2. Feeling down, depressed, or hopeless: not at all Total score: 0 Post HPI 2 WK FU: Details: CRISTELA SHAH is a 26 year old who presents for her post visit. Home BP 130/80, no headache, dizziness, blurred vision. doing well on Celexa 40mg for PPD sx. Infant Feeding: Bottle Emotional Support: Yes ROS Const Reports system reviewed and no additional complaints, except as documented Card Reports system reviewed and no additional complaints, except as documented Resp Reports system reviewed and no additional complaints, except as documented GI Reports system reviewed and no additional complaints, except as documented Reports system reviewed and no additional complaints, except as documented Musc Reports system reviewed and no additional complaints, except as documented Skin/Breast Reports system reviewed and no additional complaints, except as documented Neuro Yes system reviewed and no additional complaints, except as documented Psych Reports system reviewed and no additional complaints, except as documented Endo Reports system reviewed and no additional complaints, except as documented Patric/Lymph Reports system reviewed and no additional complaints, except as documented Aller/Immun Reports system reviewed and no additional complaints, except as documented Exam Const General: cooperative, healthy appearing and comfortable Neck Neck: normal visual inspection Resp Effort Inspection: normal respiratory effort, able to speak in complete sentences and symmetric chest movement GI Inspection: normal to inspection and incision (well approximated ) Palpation: soft Skin General: no rashes or lesions noted Neuro General: patient alert, patient awake and patient oriented x3 Extrem General: normal to inspection and full ROM Psych Appearance: grossly normal Mental Status: mental status grossly normal Mood: congruent mood Affect: normal affect Speech and Movement: speech and movement normal Attitude: cooperative Thought Process: normal Thought Content: normal Coding Level of Care Code No Charge Diagnoses Gestational hypertension O13.9 care and examination Z39.2 Status post section Z98.891 Assessment and Plan Assessment and Plan (1) Gestational hypertension: Status: Acute Comment: procardia XL and labetalol (2) care and examination: Status: Acute Plan: incision check today RTO in 3 weeks for 6 week PP check (3) Status post section: Status: Acute 09/25/22 1423 <Electronically signed by Marcela Espana CNM> Date Marcela Espana CNM Cosigner Signature: Date (if applicable) CC: Rosanna Scales DO Work Phone: Start: 09-12-2022 End: 09-12-2022 Procedure Note: See Note; NOTES: [facility] [address] [place] [address] OFFICE VISIT Date of Service: 09/12/22 MR#: [id number] Acct: [id number] Name: CRISTELA SHAH Rep #: [id number] : 1995 Provider: Justino Mast DO Age/Sex: 26/F Location: [facility] [place] Status: Signed Intake Vital Signs 06/26/22 16:16 09/11/22 14:36 Height 5 ft 4 in 5 ft 4 in Intake Visit Reasons: Consult Allergies No Known Allergies Allergy (Verified 09/11/22 14:27) PFSH Medical History Abnormality of hormone Depression Family History Father Hypertension Other Colon cancer Diabetes Heart disease Social History adopted: No household members: spouse housing: house current occupational status: employed current occupation: [employer] pets and animals: Yes pets and animals: dog(s) history of recent travel: No Smoking Status: Never smoker alcohol intake: former details: social not while substance use type: does not use well-balanced diet: daily or most days caffeine: No eating out: 4 or more times/week during the past year weight has: decreased > 10 lbs deloris/gnosticist: Restoration seatbelt use: always do you feel safe at home: Yes 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 US RUQ 2.12.21 without acute/chronic finding. ? HIDA 2..21 EF 95% without reflux into common hepatic duct. 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 She underwent 09.04.22 r/t breech presentation. *BGI established 09.12.22 with dysphagia during PO intake with emesis; onset several years prior with worsening frequency in the last year. Denies history of EGD or studies performed. ROS Const Constitutional: No anorexia, fatigue, fever(s), weight change or sleep problems Eyes Eyes: No change in vision ENT ENT: No abnormal hearing, difficulty swallowing, mouth lesions, tongue swelling or throat swelling Resp Respiratory: No cough or shortness of breath Cardio Cardiology: No chest pain at rest, chest pain with exertion, shortness of breath or dyspnea on exertion Gastro GI: No difficulty swallowing Genitourinary-Female: No difficulty urinating or burning urination Musc Musculoskeletal: No joint pain, joint swelling, muscle weakness or decreased muscle mass Skin Skin: No hair loss in leg, yellowing of the eye, itchy eyes, rash, skin ulcer or skin swelling Neuro Neurology: No abnormal hearing, abnormal movements, confusion, unsteady gait/balance or memory loss Psych Psychiatric: No anxiety, No confusion and No memory loss Endo Endocrine: No fatigue or weight change Aller/Imm Allergy/Immunologic: No itchy eyes, throat swelling or tongue swelling Patric/Lymp Hematologic/Lymphatic: No easy bleeding, easy bruising or enlarged lymph nodes Exam Const General: cooperative and comfortable Nutritional Appearance: average body habitus and well nourished [facility] Head: normal to inspection Ears: hearing grossly normal bilaterally Nose: external nose normal Face and sinus: normal facial exam Mouth: oral mucosae normal Throat: posterior oropharynx normal Eyes General: appearance normal, both eyes and all related structures Neck Neck: normal visual inspection Chest Chest palpation inspection: normal inspection of the chest and normal palpation of entire chest wall Resp Effort Inspection: normal respiratory effort Auscultation: Bilateral: Clear to Auscultation Cardio Palpation: normal PMI Rate: regular rate Rhythm: regular rhythm GI Inspection: normal to inspection Auscultation: normal bowel sounds Percussion: normal to percussion Palpation: no hepatosplenomegaly Skin General: no rashes or lesions noted Neuro General: patient alert Extrem General: normal to inspection Psych Affect: normal affect Quality Reporting Tobacco Screening ([facility] 138) Smoking Status: Never smoker Assessment and Plan Assessment and Plan (1) Difficulty swallowing: Status: Chronic Plan: The differential diagnosis for esophageal dysphagia does include eosinophilic esophagitis, esophageal dysmotility, erosive esophagitis, esophageal stricture. She will undergo an upper endoscopy to evaluate upper GI tract. She was explained alternatives, risk, benefits including outstanding bleeding, infection, sepsis, perforation, need for emergent and . She will have an ASA of 1. We will also check food allergy testing along with an ROD and ANCA antibodies. Orders: Orders Allergen, Mini-Rast Today R13.10 - Dysphagia, unspecified Allergen, Rast Food Profile Today R13.10 - Dysphagia, unspecified ROD Comprehensive Panel Today R13.10 - Dysphagia, unspecified ANCA Today R13.10 - Dysphagia, unspecified Celiac Disease Profile Today R13.10 - Dysphagia, unspecified Immunoglobulin A Today R13.10 - Dysphagia, unspecified Immunoglobulin E Today R13.10 - Dysphagia, unspecified Immunoglobulin G Today R13.10 - Dysphagia, unspecified Immunoglobulin M Today R13.10 - Dysphagia, unspecified Coding Level of Care Code Off vis,new,level 3 Diagnoses Difficulty swallowing R13.10 09/12/22 0939 <Electronically signed by Justino Mast DO> Date Justino Mast DO Cosigner Signature: Date (if applicable) CC: Rosanna Scales DO Work Phone: Start: 09-11-2022 End: 09-11-2022 Procedure Note: See Note; NOTES: [facility] [address] [place] [address] OFFICE VISIT Date of Service: 09/11/22 MR#: [id number] Acct: [id number] Name: CRISTELA SHAH Rep #: [id number] : 1995 Provider: LUIZ horner Age/Sex: 26/F [place] [facility] [place] Status: Signed Intake Vital Signs 09/04/22 16:57 09/11/22 14:27 09/11/22 14:36 Height 5 ft 4 in 5 ft 4 in 5 ft 4 in Weight: 233 lb 6 oz BMI 40.0 BP 133/84 H Intake Visit Reasons: 1 WK INCISION CHECK Chief Complaint: 1 Week Incision check Mammalogist Required: No Is patient in pain?: No Allergies No Known Allergies Allergy (Verified 09/11/22 14:27) Medications multivitamin no.47-iron fum 27 mg-folate no.1 1 mg-dha 300 mg capsule (PNV-DHA) 1 cap PO DAILY 02/28/22 [History Confirmed 09/11/22] ondansetron 4 mg disintegrating tablet 4 mg PO Q4H PRN nausea and vomiting #60 tabs 04/29/22 [Rx Confirmed 09/11/22] blood sugar diagnostic (Blood Glucose Test strips) #50 ea 07/05/22 [Rx Confirmed 09/11/22] blood-glucose meter #1 ea 07/05/22 [Rx Confirmed 09/11/22] lancets #100 ea 07/05/22 [Rx Confirmed 09/11/22] nifedipine 60 mg tablet,extended release 24 hr (Procardia XL) 60 mg PO DAILY gest htn 09/04/22 [History Confirmed 09/11/22] labetalol 100 mg tablet 100 mg PO BID #60 tabs 09/07/22 [Rx Confirmed 09/11/22] naproxen 500 mg tablet 500 mg PO BID PRN PRN Pain #30 tabs 09/07/22 [Rx Confirmed 09/11/22] oxycodone-acetaminophen 5 mg-325 mg tablet (Percocet) 1 tab PO Q6H PRN pain 7 days #10 tabs 09/07/22 [Rx Confirmed 09/11/22] citalopram 40 mg tablet 40 mg PO DAILY depression #30 tabs 09/09/22 [Rx Confirmed 09/11/22] Is last menstrual period known: No Post menopausal: No Patient : No : Yes PFSH Medical History Abnormality of hormone Depression Family History Father Hypertension Other Colon cancer Diabetes Heart disease Social History adopted: No household members: spouse housing: house current occupational status: employed current occupation: [employer] pets and animals: Yes pets and animals: dog(s) history of recent travel: No Smoking Status: Never smoker alcohol intake: former details: social not while substance use type: does not use well-balanced diet: daily or most days caffeine: No eating out: 4 or more times/week during the past year weight has: decreased > 10 lbs deloris/gnosticist: Restoration seatbelt use: always do you feel safe at home: Yes 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 Needing just naproxen for pain. Baby Jessica doing well, bottle feeding. Feeling sad, cries easily. Increased celexa to 40 mg 2 days ago. Good support with and family. History 1 Elective abortions Hx Para 0 Spontaneous abortions Hx # Term Pregnancies Ectopic pregnancies Hx # Pregnancies Multiple births # of living children 1 Past Pregnancies Del. Date Name GA/Weeks Outcome Route Bth Weight Infant Gen Labor Lgth Anesthesia Del Locatn Provider FOB 09/04/22 Jessica 37 live - full term 6lbs Male [facility] Delivery Date: 09/04/22 Last Updated by: Abigail Urbina Breech Exam Const General: cooperative and no acute distress Orientation: oriented x3 GI Inspection: incision (well healed, nonerythematous) Palpation: soft and nontender Coding Level of Care Code No Charge Diagnoses Status post section Z98.891 Depression with anxiety F41.8 Gestational hypertension O13.9 Postop check Z09 Assessment and Plan Assessment and Plan (1) Status post section: Status: Acute (2) Depression with anxiety: Status: Acute (3) Gestational hypertension: Status: Acute Comment: procardia XL and labetalol (4) Postop check: Plan Continue procardia, labetalol and celexa at current dosages. Reviewed symptoms to report. Encouraged family member to watch for worsening depression RTO 2 weeks 09/11/22 1448 <Electronically signed by Jaqueline DEE> Date Jaqueline CAOC Cosigner Signature: Date (if applicable) CC: Rosanna Scaels DO Work Phone: Start: 09-04-2022 End: 09-04-2022 Procedure Note: See Note; NOTES: [facility] [address] [place] [address] [address] [place] [address] OFFICE VISIT Date of Service: 09/04/22 MR#: [id number] Acct: [id number] Name: CRISTELA SHAH Rep #: [id number] : 1995 Provider: Dr. Gay Gifford DO Age/Sex: 26/F [place] [facility] [place] Status: Signed Intake Vital Signs 09/04/22 15:44 09/04/22 15:49 Height 5 ft 4 in 5 ft 4 in Weight: 254 lb BMI 43.6 BP 143/93 H Intake Visit Reasons: Check baby position Mammalogist Required: No Is patient in pain?: No Allergies No Known Allergies Allergy (Verified 09/04/22 15:50) Medications multivitamin no.47-iron fum 27 mg-folate no.1 1 mg-dha 300 mg capsule (PNV-DHA) cap PO 02/28/22 [History Confirmed 09/04/22] ondansetron 4 mg disintegrating tablet 4 mg PO Q4H PRN nausea and vomiting #60 tabs 04/29/22 [Rx Confirmed 09/04/22] blood sugar diagnostic (Blood Glucose Test strips) #50 ea 07/05/22 [Rx Confirmed 09/04/22] blood-glucose meter #1 ea 07/05/22 [Rx Confirmed 09/04/22] lancets #100 ea 07/05/22 [Rx Confirmed 09/04/22] nifedipine 60 mg tablet,extended release 24 hr (Procardia XL) 60 mg PO DAILY #60 tabs 08/07/22 [Rx Confirmed 09/04/22] citalopram 20 mg tablet (Celexa) 20 mg PO DAILY #30 tabs 08/08/22 [Rx Confirmed 09/04/22] Last Menstrual Period: 12/19/21 Zika: Zika virus screening: Negative : No PFSH PFSH Medical History Abnormality of hormone Depression Family History Father Hypertension Other Colon cancer Diabetes Heart disease Social History adopted: No household members: spouse housing: house current occupational status: employed current occupation: [employer] pets and animals: Yes pets and animals: dog(s) history of recent travel: No Smoking Status: Never smoker alcohol intake: former details: social not while substance use type: does not use well-balanced diet: daily or most days caffeine: No eating out: 4 or more times/week during the past year weight has: decreased > 10 lbs deloris/gnosticist: Restoration seatbelt use: always do you feel safe at home: Yes 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 OB Visit MIKE Calculator Estimated Delivery Date Method Current WG Current Estimate 09/25/22 LMP (Certain) 37w 0d Expected Delivery Route/Plan Labor Preferences- CB/BF classes: encouraged labor support person: manjinder Temple and Amber labor intervention preferences: none pain management options preferred: epidural cut cord/dad catch: cord : yes PP control planned: discussed discussed possible routes of delivery and associated risks: [] special requests: [] Specific Issue/Plans Covid status: discussed Flu vaccine: discussed Tdap vaccine: given Rhogam: na LARC form signed: yes movement and labor precautions reviewed. Problem list reviewed and updated with the most current plan of care details and appropriate orders placed. Relevant counseling for the gestational age provided. Continue routine care and follow up unless otherwise noted in visit notes/problem list details Initial Weight: Not Recorded Date -???-???-???-???-???-??? -???-???-???-???-???-??? - EGA Weight BP Urine Prot -???-???-???-???-???-??? -???-???-???-???-???-??? - Glucose FHR FuHt Pres Dilation -???-???-???-???-???-??? -???-???-???-???-???-??? - Effaced St Visit Note 03/04/22 -???-???-???-???-???-??? -???-???-???-???-???-??? - 10w 5d 233 lb 129/73 -???-???-???-???-???-??? -???-???-???-???-???-??? - 180 -???-???-???-???-???-??? -???-???-???-???-???-??? - SM- CRL 2.8 cm cons with LMP 04/01/22 -???-???-???-???-???-??? -???-???-???-???-???-??? - 14w 5d 237 lb 136/88 Negative -???-???-???-???-???-??? -???-???-???-???-???-??? - Negative 157 -???-???-???-???-???-??? -???-???-???-???-???-??? - SM- no vb cr amping 04/29/22 -???-???-???-???-???-??? -???-???-???-???-???-??? - 18w 5d 239 lb 134/82 Negative -???-???-???-???-???-??? -???-???-???-???-???-??? - Negative 156 -???-???-???-???-???-??? -???-???-???-???-???-??? - -No VB rec ently. Had in past. [facility] anatomy US ordered. Zofran for nausea. 05/27/22 -???-???-???-???-???-??? -???-???-???-???-???-??? - 22w 5d 240 lb 130/84 Negative -???-???-???-???-???-??? -???-???-???-???-???-??? - Negative 152 -???-???-???-???-???-??? -???-???-???-???-???-??? - -No VB, LO F. Good FM. Some reflux/difficulty swalloing-try pepcid 06/26/22 -???-???-???-???-???-??? -???-???-???-???-???-??? - 27w 0d 241 lb 8 oz 138/84 Negative -???-???-???-???-???-??? -???-???-???-???-???-??? - Negative 164 -???-???-???-???-???-??? -???-???-???-???-???-??? - JV- still canas ving swallowing issues. consulting GI. no lof, vaginal bleeding, or dec fm. 07/10/22 -???-???-???-???-???-??? -???-???-???-???-???-??? - 29w 0d 245 lb 8 oz 132/86 Negative -???-???-???-???-???-??? -???-???-???-???-???-??? - Negative 148 29 -???-???-???-???-???-??? -???-???-???-???-???-??? - -No Vb, LO F. Good FM. Start FE. Dara. Tdap. Is doing glucose checks QID and will call after 1 week with levels. 07/23/22 -???-???-???-???-???-??? -???-???-???-???-???-??? - 30w 6d 245 lb 146/86 146/86 Negative -???-???-???-???-???-??? -???-???-???-???-???-??? - Negative 150 31 -???-???-???-???-???-??? -???-???-???-???-???-??? - KW- +FM. No lof/vb/ctx BS under 90/120. GBS discussed. to l d for monitor ing of bp 07/26/22 -???-???-???-???-???-??? -???-???-???-???-???-??? - 31w 2d 241 lb 8 oz 134/84 Negative -???-???-???-???-???-??? -???-???-???-???-???-??? - Negative 150 -???-???-???-???-???-??? -???-???-???-???-???-??? - SM- SM- bps at home improving on 60 pr ocardia no canas bv no vb lof good fm no regular ctx 07/30/22 -???-???-???-???-???-??? -???-???-???-???-???-??? - 31w 6d 246 lb 6 oz 137/91 137/91 Negative -???-???-???-???-???-??? -???-???-???-???-???-??? - Negative 145 32 -???-???-???-???-???-??? -???-???-???-???-???-??? - KW-+FM. No h eadache, vb,lof,ctx. BPs at home 120/70s. BS under 90/ 120. no complaints-feels much better 08/05/22 -???-???-???-???-???-??? -???-???-???-???-???-??? - 32w 5d 248 lb 2 oz 124/86 -???-???-???-???-???-??? -???-???-???-???-???-??? - 130 -???-???-???-???-???-??? -???-???-???-???-???-??? - SM- nl bps a t home no canas bv no regular ctx vb lof good fm 08/08/22 -???-???-???-???-???-??? -???-???-???-???-???-??? - 33w 1d 248 lb 4 oz 130/92 130/92 Negative -???-???-???-???-???-??? -???-???-???-???-???-??? - Negative 150 -???-???-???-???-???-??? -???-???-???-???-???-??? - KW-NST only +FM, no contractions. BPs good at home. celexa refilled. 08/13/22 -???-???-???-???-???-??? -???-???-???-???-???-??? - 33w 6d 248 lb 8 oz 143/92 143/92 Negative -???-???-???-???-???-??? -???-???-???-???-???-??? - Negative 145 34 -???-???-???-???-???-??? -???-???-???-???-???-??? - KW- + FM, no ctx/vb/lof. BP ok at home. 139/86 highest at home this week, but states she had a stressful week, no concerns. 08/16/22 -???-???-???-???-???-??? -???-???-???-???-???-??? - 34w 2d 254 lb 152/93 134/85 Negative -???-???-???-???-???-??? -???-???-???-???-???-??? - Negative 140 -???-???-???-???-???-??? -???-???-???-???-???-??? - JV- no heada iglesia, visual changes, nst reactive. plan for 37 week IOL for pih. no proteinuria so far. 08/20/22 -???-???-???-???-???-??? -???-???-???-???-???-??? - 34w 6d 249 lb 8 oz 146/92 141/91 Negative -???-???-???-???-???-??? -???-???-???-???-???-??? - Negative 150 -???-???-???-???-???-??? -???-???-???-???-???-??? - JV- bp's at home are all normal. (down to 117/68), no headaches, visual changes, RUQ pain or extreme swelling. baby was breech last week. plan to rpt bedside scan next visit before scheduling iol vs primary section. 08/22/22 -???-???-???-???-???-??? -???-???-???-???-???-??? - 35w 1d 251 lb 144/86 Negative -???-???-???-???-???-??? -???-???-???-???-???-??? - Negative 140 35 -???-???-???-???-???-??? -???-???-???-???-???-??? - SM- no vb lo f good fm no regular ctx 09/04/22 -???-???-???-???-???-??? -???-???-???-???-???-??? - 37w 0d 254 lb 143/93 160/108 -???-???-???-???-???-??? -???-???-???-???-???-??? - 145 Breech -???-???-???-???-???-??? -???-???-???-???-???-??? - JV- baby sti ll torsten breech today. bp in severe range. sending to [facility] for delivery now. ACOG First Trimester First Trimester: Second Trimester Second Trimester: Signs and Symptoms of Labor, Selecting a care provider, Reproductive Life Planning Contreception, Care Planning, Depression/Anxiety and Intimate Partner Violence; Discussed Tobacco Cessation Third Trimester Third Trimester: Pain Management Plans, Labor support person(s), Immediate Larc, Circumcision preference, Movement Monitoring, Signs and Symptoms of Preeclampsia, Infant Feeding Yes , [place] Education and Family Medical Leave or Disability Forms; Discussed Trial of Labor after Counseling Diagnostics Diagnostics Diagnostics: Hgb 10.7 g/dL (12.0-15.0) L Hct 32.6 % (37-47) L Details: HIV: Urine Culture: Sequential Screen: NIPT Screen: ROS Const Denies fever(s) GI Reports as per HPI and Denies abdominal pain Reports as per HPI, Denies abnormal vaginal bleeding, Denies dysuria and Denies vaginal discharge Exam Const General: healthy appearing, comfortable and no acute distress GI Inspection: normal to inspection Palpation: soft and nontender Coding Level of Care Code OB Routine Diagnoses Breech presentation O32.1XX0 Depression with anxiety F41.8 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 (4) Gestational hypertension: Status: Acute Comment: growth us 36% at 35 weeks, steroids 4/4 and 4/5. procardia 60XL. nl labs. plan 2x weekly nsts, weekly yuliana, and weekly labs., home bp monitoring (5) Anemia in preg-unspec: Status: Acute Comment: start Fe daily (6) Difficulty swallowing: Status: Acute Comment: consult to GI- end of august (7) Obesity affecting : Status: Acute Comment: 1 tm GCT encouraged healthy weight gain. BMI 39. abn 1 hr, normal 3 hr GTT in 1 tm. declined 3 tm gct in third trimester- normal home BS checking x 1 week in third trimester. (8) Supervision of high risk , antepartum: Status: Acute Comment: [id number], MIKE 10/05/22, Jarek (9) : Status: Acute Qualifiers: Weeks of gestation: 37 weeks Qualified Code(s): Z3A.37 - 37 weeks gestation of Comment: GBS neg, NIPT low risk, 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 (10) Asthma: Status: Acute Comment: virus and exercise induced 09/04/22 1615 <Electronically signed by Gay Gan DO> Date Gay Gan DO Cosigner Signature: Date (if applicable) CC: Rosanna Scales DO Work Phone: Start: 09-02-2022 End: 09-07-2022 Procedure Note: See Note; NOTES: [facility] [address] [place], [place] [address]k[address]. [address] [place] [address] OFFICE VISIT Date of Service: 09/02/22 MR#: [id number] Acct: [id number] Name: CRISTELA SHAH Rep #: [id number] : 1995 Provider: Dr. Do julian MD Age/Sex: 26/F [place] [facility] Status: Signed Intake Vital Signs 08/30/22 15:00 09/02/22 08:32 09/02/22 08:34 Height 5 ft 4 in 5 ft 4 in 5 ft 4 in Weight: 253 lb 8 oz BMI 43.4 BP 144/90 H Intake Visit Reasons: ob / nst Mammalogist Required: No Is patient in pain?: No Allergies No Known Allergies Allergy (Verified 09/04/22 15:50) Last Menstrual Period: 12/19/21 Zika: Zika virus screening: Negative : No PFSH PFSH Medical History Abnormality of hormone Depression Family History Father Hypertension Other Colon cancer Diabetes Heart disease Social History adopted: No household members: spouse housing: house current occupational status: employed current occupation: [employer] pets and animals: Yes pets and animals: dog(s) history of recent travel: No Smoking Status: Never smoker alcohol intake: former details: social not while substance use type: does not use well-balanced diet: daily or most days caffeine: No eating out: 4 or more times/week during the past year weight has: decreased > 10 lbs deloris/gnosticist: Restoration seatbelt use: always do you feel safe at home: Yes 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 OB Visit MIKE Calculator Estimated Delivery Date Method Current WG Current Estimate 09/25/22 LMP (Certain) 37w 3d Expected Delivery Route/Plan Labor Preferences- CB/BF classes: encouraged labor support person: manjinder Temple labor intervention preferences: none pain management options preferred: epidural cut cord/dad catch: cord : yes PP control planned: discussed discussed possible routes of delivery and associated risks: [] special requests: [] Specific Issue/Plans Covid status: discussed Flu vaccine: discussed Tdap vaccine: given Rhogam: na LARC form signed: yes movement and labor precautions reviewed. Problem list reviewed and updated with the most current plan of care details and appropriate orders placed. Relevant counseling for the gestational age provided. Continue routine care and follow up unless otherwise noted in visit notes/problem list details Initial Weight: Not Recorded Date -???-???-???-???-???-??? -???-???-???-???-???-??? - EGA Weight BP Urine Prot -???-???-???-???-???-??? -???-???-???-???-???-??? - Glucose FHR FuHt Pres Dilation -???-???-???-???-???-??? -???-???-???-???-???-??? - Effaced St Visit Note 03/04/22 -???-???-???-???-???-??? -???-???-???-???-???-??? - 10w 5d 233 lb 129/73 -???-???-???-???-???-??? -???-???-???-???-???-??? - 180 -???-???-???-???-???-??? -???-???-???-???-???-??? - SM- CRL 2.8 cm cons with LMP 04/01/22 -???-???-???-???-???-??? -???-???-???-???-???-??? - 14w 5d 237 lb 136/88 Negative -???-???-???-???-???-??? -???-???-???-???-???-??? - Negative 157 -???-???-???-???-???-??? -???-???-???-???-???-??? - - no vb cr amping 04/29/22 -???-???-???-???-???-??? -???-???-???-???-???-??? - 18w 5d 239 lb 134/82 Negative -???-???-???-???-???-??? -???-???-???-???-???-??? - Negative 156 -???-???-???-???-???-??? -???-???-???-???-???-??? - -No VB rec ently. Had in past. [facility] anatomy ordered. Kati for nausea. 05/27/22 -???-???-???-???-???-??? -???-???-???-???-???-??? - 22w 5d 240 lb 130/84 Negative -???-???-???-???-???-??? -???-???-???-???-???-??? - Negative 152 -???-???-???-???-???-??? -???-???-???-???-???-??? - -No VB, JOSE Givens FM. Some reflux/difficulty swalloing-try pepcid 06/26/22 -???-???-???-???-???-??? -???-???-???-???-???-??? - 27w 0d 241 lb 8 oz 138/84 Negative -???-???-???-???-???-??? -???-???-???-???-???-??? - Negative 164 -???-???-???-???-???-??? -???-???-???-???-???-??? - JV- still canas ving swallowing issues. consulting GI. no lof, vaginal bleeding, or dec fm. 07/10/22 -???-???-???-???-???-??? -???-???-???-???-???-??? - 29w 0d 245 lb 8 oz 132/86 Negative -???-???-???-???-???-??? -???-???-???-???-???-??? - Negative 148 29 -???-???-???-???-???-??? -???-???-???-???-???-??? - MH-No Vb, LO F. Chon FM. Start FE. Larc. Tdap. Is doing glucose checks QID and will call after 1 week with levels. 07/23/22 -???-???-???-???-???-??? -???-???-???-???-???-??? - 30w 6d 245 lb 146/86 146/86 Negative -???-???-???-???-???-??? -???-???-???-???-???-??? - Negative 150 31 -???-???-???-???-???-??? -???-???-???-???-???-??? - KW- +FM. No lof/vb/ctx BS under 90/120. GBS discussed. to l d for monitor ing of bp 07/26/22 -???-???-???-???-???-??? -???-???-???-???-???-??? - 31w 2d 241 lb 8 oz 134/84 Negative -???-???-???-???-???-??? -???-???-???-???-???-??? - Negative 150 -???-???-???-???-???-??? -???-???-???-???-???-??? - SM- SM- bps at home improving on 60 pr ocardia no canas bv no vb lof good fm no regular ctx 07/30/22 -???-???-???-???-???-??? -???-???-???-???-???-??? - 31w 6d 246 lb 6 oz 137/91 137/91 Negative -???-???-???-???-???-??? -???-???-???-???-???-??? - Negative 145 32 -???-???-???-???-???-??? -???-???-???-???-???-??? - KW-+FM. No h eadache, vb,lof,ctx. BPs at home 120/70s. BS under 90/ 120. no complaints-feels much better 08/05/22 -???-???-???-???-???-??? -???-???-???-???-???-??? - 32w 5d 248 lb 2 oz 124/86 -???-???-???-???-???-??? -???-???-???-???-???-??? - 130 -???-???-???-???-???-??? -???-???-???-???-???-??? - SM- nl bps a t home no canas bv no regular ctx vb lof good fm 08/08/22 -???-???-???-???-???-??? -???-???-???-???-???-??? - 33w 1d 248 lb 4 oz 130/92 130/92 Negative -???-???-???-???-???-??? -???-???-???-???-???-??? - Negative 150 -???-???-???-???-???-??? -???-???-???-???-???-??? - KW-NST only +FM, no contractions. BPs good at home. celexa refilled. 08/13/22 -???-???-???-???-???-??? -???-???-???-???-???-??? - 33w 6d 248 lb 8 oz 143/92 143/92 Negative -???-???-???-???-???-??? -???-???-???-???-???-??? - Negative 145 34 -???-???-???-???-???-??? -???-???-???-???-???-??? - KW- + FM, no ctx/vb/lof. BP ok at home. 139/86 highest at home this week, but states she had a stressful week, no concerns. 08/16/22 -???-???-???-???-???-??? -???-???-???-???-???-??? - 34w 2d 254 lb 152/93 134/85 Negative -???-???-???-???-???-??? -???-???-???-???-???-??? - Negative 140 -???-???-???-???-???-??? -???-???-???-???-???-??? - JV- no heada iglesia, visual changes, nst reactive. plan for 37 week IOL for pih. no proteinuria so far. 08/20/22 -???-???-???-???-???-??? -???-???-???-???-???-??? - 34w 6d 249 lb 8 oz 146/92 141/91 Negative -???-???-???-???-???-??? -???-???-???-???-???-??? - Negative 150 -???-???-???-???-???-??? -???-???-???-???-???-??? - JV- bp's at home are all normal. (down to 117/68), no headaches, visual changes, RUQ pain or extreme swelling. baby was breech last week. plan to rpt bedside scan next visit before scheduling iol vs primary section. 08/22/22 -???-???-???-???-???-??? -???-???-???-???-???-??? - 35w 1d 251 lb 144/86 Negative -???-???-???-???-???-??? -???-???-???-???-???-??? - Negative 140 35 -???-???-???-???-???-??? -???-???-???-???-???-??? - SM- no vb lo f good fm no regular ctx 09/02/22 -???-???-???-???-???-??? -???-???-???-???-???-??? - 36w 5d 253 lb 8 oz 144/90 Negative -???-???-???-???-???-??? -???-???-???-???-???-??? - Negative -???-???-???-???-???-??? -???-???-???-???-???-??? - 09/04/22 -???-???-???-???-???-??? -???-???-???-???-???-??? - 37w 0d 254 lb 143/93 160/108 -???-???-???-???-???-??? -???-???-???-???-???-??? - 145 Breech -???-???-???-???-???-??? -???-???-???-???-???-??? - JV- baby sti ll torsten breech today. bp in severe range. sending to [facility] for delivery now. ACOG First Trimester First Trimester: Second Trimester Second Trimester: Signs and Symptoms of Labor, Selecting a care provider, Reproductive Life Planning Contreception, Care Planning, Depression/Anxiety and Intimate Partner Violence; Discussed Tobacco Cessation Third Trimester Third Trimester: Pain Management Plans, Labor support person(s), Immediate Larc, Circumcision preference, Movement Monitoring, Signs and Symptoms of Preeclampsia, Feeding Yes , [place] Education and Family Medical Leave or Disability Forms; Discussed Trial of Labor after Counseling Diagnostics Diagnostics Diagnostics: Blood Type O POSITIVE Antibody Screen NEGATIVE Hgb 8.6 g/dL (12.0-15.0) L Hct 26.9 % (37-47) L Details: HIV: Urine Culture: Sequential Screen: NIPT Screen: Office Procedures Non-stress Test Non-Stress Test Indications for Monitoring: Yes hypertension Heart Rate Baseline: 140 Heart Rate Variability: moderate Movement: Present Heart Rate Accelerations: Present Decelerations: Absent Contractions: Absent Impression: Yes Reactive Non-Stress Test Category 1 Results POC Urinalysis 2 Dip (Clinic) Office Urine Glucose Negative Last Edit by Temitope Paz on 09/02/22 10:39 Office Urine Protein Negative Last Edit by Temitope Paz on 09/02/22 10:39 Coding Level of Care Code OB Routine Diagnoses Breech presentation O32.1XX0 Depression with anxiety F41.8 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 (4) Gestational hypertension: Status: Acute Comment: growth us 36% at 35 weeks, steroids 4/4 and 4/5. procardia 60XL. nl labs. plan 2x weekly nsts, weekly yuliana, and weekly labs., home bp monitoring (5) Anemia in preg-unspec: Status: Acute Comment: start Fe daily (6) Difficulty swallowing: Status: Acute Comment: consult to GI- end of august (7) Obesity affecting : Status: Acute Comment: 1 tm GCT encouraged healthy weight gain. BMI 39. abn 1 hr, normal 3 hr GTT in 1 tm. declined 3 tm gct in third trimester- normal home BS checking x 1 week in third trimester. (8) Supervision of high risk , antepartum: Status: Acute Comment: [id number], MIKE 10/05/22, Jarek (9) : Status: Acute Qualifiers: Weeks of gestation: 36 weeks Qualified Code(s): Z3A.36 - 36 weeks gestation of Comment: GBS neg, NIPT low risk, 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 (10) Asthma: Status: Acute Comment: virus and exercise induced Orders: Orders OB NST 09/02/22 O13.9 - Gestational [-induced] hypertension without significant proteinuria, unspecified trimester POC Urinalysis 2 Dip (Clinic) 09/02/22 09/07/22 0942 <Electronically signed by Do Frankel MD> Date Do Frankel MD Cosigner Signature: Date (if applicable) CC: Rosanna Scales DO Work Phone: Start: 08-30-2022 Ultrasonography for antepartum monitoring of fetus Dr. Rosanna Scales Work Phone: Start: 08-30-2022 End: 08-31-2022 Procedure Note: See Note; NOTES: [facility] Imaging Services [address] [place] [address] OB Limited (No Biometrics) MR#: [id number] Acct: [id number] Name: CRISTELA SHAH Rep #: [id number] : 1995 F 26 From: Caden Marroquin MD PCP: Dr. Rosanna Scales, DO Status: REG CLI Study: OB Limited (No Biometrics) Date of Exam: 08/30 Exam# [id number] Ordering Dr: Do Frankel STUDY: SECOND AND THIRD TRIMESTER OBSTETRICAL ULTRASOUND - LIMITED REASON FOR EXAM: Female, 26 years old YULIANA LMP: PRIOR ULTRASOUND: None. TECHNIQUE: Transabdominal TECHNICAL QUALITY: Adequate. FINDINGS: There is a single intrauterine fetus. The fetus is in a breech presentation. There is demonstrated cardiac activity with a heart rate of 133 bpm. There is a normal amniotic fluid volume. The largest amniotic fluid pocket measures 7.2 x 5.2 cm. The amniotic fluid index (YULIANA) is 21.87 cm. The placenta is fundal There are Grade 2 placental changes. The cervix measures 3.9 cm in length. Age by LMP: 35 weeks, 6 days. MIKE by LMP: September 28, 2022. US/OB Limited (No Biometrics) IMPRESSION: Viable intrauterine gestation approximately 36 weeks gestational age with fetus in breech presentation. YULIANA 21.87 cm Electronically Signed: Caden Marroquin MD at 20:23 EDT Reading Location ID and State: [address] [place] [address] , Service support , CC: Dr. Rosanna Scales DO; Dr. Do Frankel MD Fuel Cell Designer: Signed Rosanna Scales DO Work Phone: Start: 08-30-2022 End: 09-05-2022 Procedure Note: See Note; NOTES: [facility] [address] [place] [address] OFFICE VISIT Date of Service: 08/30/22 MR#: [id number] Acct: [id number] Name: PABLOCRISTELAAN Rep #: [id number] : 1995 Provider: AL Castaneda ams Age/Sex: 26/F [place] [facility] Status: Signed Intake Vital Signs 07/26/22 11:07 08/30/22 14:58 08/30/22 15:00 Height 5 ft 4 in 5 ft 4 in 5 ft 4 in Weight: 256 lb 2 oz BMI 43.9 BP 138/80 H Intake Visit Reasons: 36 WK NST Mammalogist Required: No Is patient in pain?: No Feel stressed/tense/nervous/a nxious/difficulty sleeping: not at all Allergies No Known Allergies Allergy (Verified 08/30/22 14:59) Medications multivitamin no.47-iron fum 27 mg-folate no.1 1 mg-dha 300 mg capsule (PNV-DHA) cap PO 02/28/22 [History Confirmed 08/30/22] ondansetron 4 mg disintegrating tablet 4 mg PO Q4H PRN nausea and vomiting #60 tabs 04/29/22 [Rx Confirmed 08/30/22] blood sugar diagnostic (Blood Glucose Test strips) #50 ea 07/05/22 [Rx Confirmed 08/30/22] blood-glucose meter #1 ea 07/05/22 [Rx Confirmed 08/30/22] lancets #100 ea 07/05/22 [Rx Confirmed 08/30/22] nifedipine 60 mg tablet,extended release 24 hr (Procardia XL) 60 mg PO DAILY #60 tabs 08/07/22 [Rx Confirmed 08/30/22] citalopram 20 mg tablet (Celexa) 20 mg PO DAILY #30 tabs 08/08/22 [Rx Confirmed 08/30/22] Last Menstrual Period: 12/19/21 Zika: Zika virus screening: Negative : No PFSH PFSH Medical History Abnormality of hormone Depression Family History Father Hypertension Other Colon cancer Diabetes Heart disease Social History adopted: No household members: spouse housing: house current occupational status: employed current occupation: [employer] pets and animals: Yes pets and animals: dog(s) history of recent travel: No Smoking Status: Never smoker alcohol intake: former details: social not while substance use type: does not use well-balanced diet: daily or most days caffeine: No eating out: 4 or more times/week during the past year weight has: decreased > 10 lbs deloris/gnosticist: Restoration seatbelt use: always do you feel safe at home: Yes 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 OB Visit MIKE Calculator Estimated Delivery Date Method Current WG Current Estimate 09/25/22 LMP (Certain) 36w 2d Expected Delivery Route/Plan Labor Preferences- CB/BF classes: encouraged labor support person: luther Temples- Javy and Amber labor intervention preferences: none pain management options preferred: epidural cut cord/dad catch: cord : yes PP control planned: discussed discussed possible routes of delivery and associated risks: [] special requests: [] Specific Issue/Plans Covid status: discussed Flu vaccine: discussed Tdap vaccine: given Rhogam: na LARC form signed: yes movement and labor precautions reviewed. Problem list reviewed and updated with the most current plan of care details and appropriate orders placed. Relevant counseling for the gestational age provided. Continue routine care and follow up unless otherwise noted in visit notes/problem list details Initial Weight: Not Recorded Date -???-???-???-???-???-??? -???-???-???-???-???-??? - EGA Weight BP Urine Prot -???-???-???-???-???-??? -???-???-???-???-???-??? - Glucose FHR FuHt Pres Dilation -???-???-???-???-???-??? -???-???-???-???-???-??? - Effaced St Visit Note 03/04/22 -???-???-???-???-???-??? -???-???-???-???-???-??? - 10w 5d 233 lb 129/73 -???-???-???-???-???-??? -???-???-???-???-???-??? - 180 -???-???-???-???-???-??? -???-???-???-???-???-??? - SM- CRL 2.8 cm cons with LMP 04/01/22 -???-???-???-???-???-??? -???-???-???-???-???-??? - 14w 5d 237 lb 136/88 Negative -???-???-???-???-???-??? -???-???-???-???-???-??? - Negative 157 -???-???-???-???-???-??? -???-???-???-???-???-??? - - no vb cr amping 04/29/22 -???-???-???-???-???-??? -???-???-???-???-???-??? - 18w 5d 239 lb 134/82 Negative -???-???-???-???-???-??? -???-???-???-???-???-??? - Negative 156 -???-???-???-???-???-??? -???-???-???-???-???-??? - -No VB rec ently. Had in past. [facility] anatomy US maribel. Zofran for nausea. 05/27/22 -???-???-???-???-???-??? -???-???-???-???-???-??? - 22w 5d 240 lb 130/84 Negative -???-???-???-???-???-??? -???-???-???-???-???-??? - Negative 152 -???-???-???-???-???-??? -???-???-???-???-???-??? - -No VB, LO F. Good FM. Some reflux/difficulty swalloing-try pepcid 06/26/22 -???-???-???-???-???-??? -???-???-???-???-???-??? - 27w 0d 241 lb 8 oz 138/84 Negative -???-???-???-???-???-??? -???-???-???-???-???-??? - Negative 164 -???-???-???-???-???-??? -???-???-???-???-???-??? - JV- still canas ving swallowing issues. consulting GI. no lof, vaginal bleeding, or dec fm. 07/10/22 -???-???-???-???-???-??? -???-???-???-???-???-??? - 29w 0d 245 lb 8 oz 132/86 Negative -???-???-???-???-???-??? -???-???-???-???-???-??? - Negative 148 29 -???-???-???-???-???-??? -???-???-???-???-???-??? - -No Vb, LO F. Good FM. Start FE. Brayanc. Tdap. Is doing glucose checks QID and will call after 1 week with levels. 07/23/22 -???-???-???-???-???-??? -???-???-???-???-???-??? - 30w 6d 245 lb 146/86 146/86 Negative -???-???-???-???-???-??? -???-???-???-???-???-??? - Negative 150 31 -???-???-???-???-???-??? -???-???-???-???-???-??? - KW- +FM. No lof/vb/ctx BS under 90/120. GBS discussed. to l d for monitor ing of bp 07/26/22 -???-???-???-???-???-??? -???-???-???-???-???-??? - 31w 2d 241 lb 8 oz 134/84 Negative -???-???-???-???-???-??? -???-???-???-???-???-??? - Negative 150 -???-???-???-???-???-??? -???-???-???-???-???-??? - SM- SM- bps at home improving on 60 pr ocardia no canas bv no vb lof good fm no regular ctx 07/30/22 -???-???-???-???-???-??? -???-???-???-???-???-??? - 31w 6d 246 lb 6 oz 137/91 137/91 Negative -???-???-???-???-???-??? -???-???-???-???-???-??? - Negative 145 32 -???-???-???-???-???-??? -???-???-???-???-???-??? - KW-+FM. No h eadache, vb,lof,ctx. BPs at home 120/70s. BS under 90/ 120. no complaints-feels much better 08/05/22 -???-???-???-???-???-??? -???-???-???-???-???-??? - 32w 5d 248 lb 2 oz 124/86 -???-???-???-???-???-??? -???-???-???-???-???-??? - 130 -???-???-???-???-???-??? -???-???-???-???-???-??? - SM- nl bps a t home no canas bv no regular ctx vb lof good fm 08/08/22 -???-???-???-???-???-??? -???-???-???-???-???-??? - 33w 1d 248 lb 4 oz 130/92 130/92 Negative -???-???-???-???-???-??? -???-???-???-???-???-??? - Negative 150 -???-???-???-???-???-??? -???-???-???-???-???-??? - KW-NST only +FM, no contractions. BPs good at home. celexa refilled. 08/13/22 -???-???-???-???-???-??? -???-???-???-???-???-??? - 33w 6d 248 lb 8 oz 143/92 143/92 Negative -???-???-???-???-???-??? -???-???-???-???-???-??? - Negative 145 34 -???-???-???-???-???-??? -???-???-???-???-???-??? - KW- + FM, no ctx/vb/lof. BP ok at home. 139/86 highest at home this week, but states she had a stressful week, no concerns. 08/16/22 -???-???-???-???-???-??? -???-???-???-???-???-??? - 34w 2d 254 lb 152/93 134/85 Negative -???-???-???-???-???-??? -???-???-???-???-???-??? - Negative 140 -???-???-???-???-???-??? -???-???-???-???-???-??? - JV- no heada iglesia, visual changes, nst reactive. plan for 37 week IOL for pih. no proteinuria so far. 08/20/22 -???-???-???-???-???-??? -???-???-???-???-???-??? - 34w 6d 249 lb 8 oz 146/92 141/91 Negative -???-???-???-???-???-??? -???-???-???-???-???-??? - Negative 150 -???-???-???-???-???-??? -???-???-???-???-???-??? - JV- bp's at home are all normal. (down to 117/68), no headaches, visual changes, RUQ pain or extreme swelling. baby was breech last week. plan to rpt bedside scan next visit before scheduling iol vs primary section. 08/22/22 -???-???-???-???-???-??? -???-???-???-???-???-??? - 35w 1d 251 lb 144/86 Negative -???-???-???-???-???-??? -???-???-???-???-???-??? - Negative 140 35 -???-???-???-???-???-??? -???-???-???-???-???-??? - SM- no vb lo f good fm no regular ctx ACOG First Trimester First Trimester: Second Trimester Second Trimester: Signs and Symptoms of Labor, Selecting a care provider, Reproductive Life Planning Contreception, Care Planning, Depression/Anxiety and Intimate Partner Violence; Discussed Tobacco Cessation Third Trimester Third Trimester: Pain Management Plans, Labor support person(s), Immediate Larc, Circumcision preference, Movement Monitoring, Signs and Symptoms of Preeclampsia, Feeding Yes , [place] Education and Family Medical Leave or Disability Forms; Discussed Trial of Labor after Counseling Diagnostics Diagnostics Diagnostics: Hgb 10.7 g/dL (12.0-15.0) L Hct 32.6 % (37-47) L Details: HIV: Urine Culture: Sequential Screen: NIPT Screen: ROS Const Reports system reviewed and no additional complaints, except as documented Resp Reports system reviewed and no additional complaints, except as documented GI Reports system reviewed and no additional complaints, except as documented, Denies nausea and Denies vomiting Denies dysuria, Denies urinary hesitancy and Denies urinary urgency Psych Reports system reviewed and no additional complaints, except as documented Exam Const General: cooperative, healthy appearing and no acute distress Orientation: alert, awake and oriented x3 Neck Neck: normal visual inspection Resp Effort Inspection: normal respiratory effort and able to speak in complete sentences GI Inspection: normal to inspection Palpation: soft and other Other: gravid Neuro General: patient alert, patient awake and patient oriented x3 Psych Appearance: grossly normal Mental Status: mental status grossly normal Speech and Movement: speech and movement normal Attitude: cooperative Thought Process: normal Thought Content: normal Judgment: judgment good Results POC Urinalysis 2 Dip (Clinic) Office Urine Glucose Negative Last Edit by Aysha Pike on 08/30/22 15:01 Office Urine Protein Negative Last Edit by Aysha Pike on 08/30/22 15:01 Coding Level of Care Code OB Routine Assessment and Plan Assessment and Plan Orders: Orders POC Urinalysis 2 Dip (Clinic) Today Culture, Group B Streptococcus Today O09.90 - Supervision of high risk , unspecified, unspecified trimester Plan Details Additional Comments: ACOG trimester education reviewed and updated. see problem list details for updated plan management information and see below for orders placed at this visit. GA appropriate handout given. 08/30/221806 <Electronically signed by Marcela Espana CNM> Date Marcela Espana CNM Cosigner Signature: Date (if applicable) CC: Rosanna Scales DO Work Phone: Start: 08-30-2022 Group B Streptococcus Culture Dr. Rosanna Scales Work Phone: Start: 08-27-2022 End: 08-27-2022 Procedure Note: See Note; NOTES: [facility] [address] [place] [address] OFFICE VISIT Date of Service: 08/27/22 MR#: [id number] Acct: [id number] Name: CRISTELA SHAH Rep #: [id number] : 1995 Provider: Dr. Do julian MD Age/Sex: 26/F [place] [facility] [place] Status: Signed Intake Vital Signs 07/10/22 14:23 08/22/22 13:11 08/27/22 15:29 08/27/22 15:31 Height 5 ft 4 in 5 ft 4 in 5 ft 4 in 5 ft 4 in Weight: 251 lb 253 lb 6 oz BMI 43.0 43.4 BP 144/86 H 142/92 H Intake Visit Reasons: 36 WK OB/NST Mammalogist Required: No Is patient in pain?: No Allergies No Known Allergies Allergy (Verified 08/27/22 15:30) Medications multivitamin no.47-iron fum 27 mg-folate no.1 1 mg-dha 300 mg capsule (PNV-DHA) cap PO 02/28/22 [History Confirmed 08/27/22] ondansetron 4 mg disintegrating tablet 4 mg PO Q4H PRN nausea and vomiting #60 tabs 04/29/22 [Rx Confirmed 08/27/22] blood sugar diagnostic (Blood Glucose Test strips) #50 ea 07/05/22 [Rx Confirmed 08/27/22] blood-glucose meter #1 ea 07/05/22 [Rx Confirmed 08/27/22] lancets #100 ea 07/05/22 [Rx Confirmed 08/27/22] nifedipine 60 mg tablet,extended release 24 hr (Procardia XL) 60 mg PO DAILY #60 tabs 08/07/22 [Rx Confirmed 08/27/22] citalopram 20 mg tablet (Celexa) 20 mg PO DAILY #30 tabs 08/08/22 [Rx Confirmed 08/27/22] Last Menstrual Period: 12/19/21 Zika: Zika virus screening: Negative : No PFSH PFSH Medical History Abnormality of hormone Depression Family History Father Hypertension Other Colon cancer Diabetes Heart disease Social History adopted: No household members: spouse housing: house current occupational status: employed current occupation: [employer] pets and animals: Yes pets and animals: dog(s) history of recent travel: No Smoking Status: Never smoker alcohol intake: former details: social not while substance use type: does not use well-balanced diet: daily or most days caffeine: No eating out: 4 or more times/week during the past year weight has: decreased > 10 lbs deloris/gnosticist: Restoration seatbelt use: always do you feel safe at home: Yes 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 OB Visit MIKE Calculator Estimated Delivery Date Method Current WG Current Estimate 09/25/22 LMP (Certain) 35w 6d Expected Delivery Route/Plan Labor Preferences- CB/BF classes: encouraged labor support person: manjinder Temple labor intervention preferences: none pain management options preferred: epidural cut cord/dad catch: cord : yes PP control planned: discussed discussed possible routes of delivery and associated risks: [] special requests: [] Specific Issue/Plans Covid status: discussed Flu vaccine: discussed Tdap vaccine: given Rhogam: na LARC form signed: yes movement and labor precautions reviewed. Problem list reviewed and updated with the most current plan of care details and appropriate orders placed. Relevant counseling for the gestational age provided. Continue routine care and follow up unless otherwise noted in visit notes/problem list details Initial Weight: Not Recorded Date -???-???-???-???-???-??? -???-???-???-???-???-??? - EGA Weight BP Urine Prot -???-???-???-???-???-??? -???-???-???-???-???-??? - Glucose FHR FuHt Pres Dilation -???-???-???-???-???-??? -???-???-???-???-???-??? - Effaced St Visit Note 03/04/22 -???-???-???-???-???-??? -???-???-???-???-???-??? - 10w 5d 233 lb 129/73 -???-???-???-???-???-??? -???-???-???-???-???-??? - 180 -???-???-???-???-???-??? -???-???-???-???-???-??? - SM- CRL 2.8 cm cons with LMP 04/01/22 -???-???-???-???-???-??? -???-???-???-???-???-??? - 14w 5d 237 lb 136/88 Negative -???-???-???-???-???-??? -???-???-???-???-???-??? - Negative 157 -???-???-???-???-???-??? -???-???-???-???-???-??? - SM- no vb cr amping 04/29/22 -???-???-???-???-???-??? -???-???-???-???-???-??? - 18w 5d 239 lb 134/82 Negative -???-???-???-???-???-??? -???-???-???-???-???-??? - Negative 156 -???-???-???-???-???-??? -???-???-???-???-???-??? - -No VB rec ently. Had in past. [facility] anatomy US ordered. Kati for nausea. 05/27/22 -???-???-???-???-???-??? -???-???-???-???-???-??? - 22w 5d 240 lb 130/84 Negative -???-???-???-???-???-??? -???-???-???-???-???-??? - Negative 152 -???-???-???-???-???-??? -???-???-???-???-???-??? - -No VB, LO F. Good FM. Some reflux/difficulty swalloing-try pepcid 06/26/22 -???-???-???-???-???-??? -???-???-???-???-???-??? - 27w 0d 241 lb 8 oz 138/84 Negative -???-???-???-???-???-??? -???-???-???-???-???-??? - Negative 164 -???-???-???-???-???-??? -???-???-???-???-???-??? - JV- still canas ving swallowing issues. consulting GI. no lof, vaginal bleeding, or dec fm. 07/10/22 -???-???-???-???-???-??? -???-???-???-???-???-??? - 29w 0d 245 lb 8 oz 132/86 Negative -???-???-???-???-???-??? -???-???-???-???-???-??? - Negative 148 29 -???-???-???-???-???-??? -???-???-???-???-???-??? - MH-No Vb, LO F. Good FM. Start FE. Larc. Tdap. Is doing glucose checks QID and will call after 1 week with levels. 07/23/22 -???-???-???-???-???-??? -???-???-???-???-???-??? - 30w 6d 245 lb 146/86 146/86 Negative -???-???-???-???-???-??? -???-???-???-???-???-??? - Negative 150 31 -???-???-???-???-???-??? -???-???-???-???-???-??? - - +FM. No lof/vb/ctx BS under 90/120. GBS discussed. to l d for monitor ing of bp 07/26/22 -???-???-???-???-???-??? -???-???-???-???-???-??? - 31w 2d 241 lb 8 oz 134/84 Negative -???-???-???-???-???-??? -???-???-???-???-???-??? - Negative 150 -???-???-???-???-???-??? -???-???-???-???-???-??? - SM- SM- bps at home improving on 60 pr ocardia no canas bv no vb lof good fm no regular ctx 07/30/22 -???-???-???-???-???-??? -???-???-???-???-???-??? - 31w 6d 246 lb 6 oz 137/91 137/91 Negative -???-???-???-???-???-??? -???-???-???-???-???-??? - Negative 145 32 -???-???-???-???-???-??? -???-???-???-???-???-??? - KW-+FM. No h eadache, vb,lof,ctx. BPs at home 120/70s. BS under 90/ 120. no complaints-feels much better 08/05/22 -???-???-???-???-???-??? -???-???-???-???-???-??? - 32w 5d 248 lb 2 oz 124/86 -???-???-???-???-???-??? -???-???-???-???-???-??? - 130 -???-???-???-???-???-??? -???-???-???-???-???-??? - SM- nl bps a t home no canas bv no regular ctx vb lof good fm 08/08/22 -???-???-???-???-???-??? -???-???-???-???-???-??? - 33w 1d 248 lb 4 oz 130/92 130/92 Negative -???-???-???-???-???-??? -???-???-???-???-???-??? - Negative 150 -???-???-???-???-???-??? -???-???-???-???-???-??? - KW-NST only +FM, no contractions. BPs good at home. celexa refilled. 08/13/22 -???-???-???-???-???-??? -???-???-???-???-???-??? - 33w 6d 248 lb 8 oz 143/92 143/92 Negative -???-???-???-???-???-??? -???-???-???-???-???-??? - Negative 145 34 -???-???-???-???-???-??? -???-???-???-???-???-??? - KW- + FM, no ctx/vb/lof. BP ok at home. 139/86 highest at home this week, but states she had a stressful week, no concerns. 08/16/22 -???-???-???-???-???-??? -???-???-???-???-???-??? - 34w 2d 254 lb 152/93 134/85 Negative -???-???-???-???-???-??? -???-???-???-???-???-??? - Negative 140 -???-???-???-???-???-??? -???-???-???-???-???-??? - JV- no heada iglesia, visual changes, nst reactive. plan for 37 week IOL for pih. no proteinuria so far. 08/20/22 -???-???-???-???-???-??? -???-???-???-???-???-??? - 34w 6d 249 lb 8 oz 146/92 141/91 Negative -???-???-???-???-???-??? -???-???-???-???-???-??? - Negative 150 -???-???-???-???-???-??? -???-???-???-???-???-??? - JV- bp's at home are all normal. (down to 117/68), no headaches, visual changes, RUQ pain or extreme swelling. baby was breech last week. plan to rpt bedside scan next visit before scheduling iol vs primary section. 08/22/22 -???-???-???-???-???-??? -???-???-???-???-???-??? - 35w 1d 251 lb 144/86 Negative -???-???-???-???-???-??? -???-???-???-???-???-??? - Negative 140 35 -???-???-???-???-???-??? -???-???-???-???-???-??? - SM- no vb lo f good fm no regular ctx 08/27/22 -???-???-???-???-???-??? -???-???-???-???-???-??? - 35w 6d 253 lb 6 oz 142/92 Negative -???-???-???-???-???-??? -???-???-???-???-???-??? - Negative -???-???-???-???-???-??? -???-???-???-???-???-??? - ACOG First Trimester First Trimester: Second Trimester Second Trimester: Signs and Symptoms of Labor, Selecting a care provider, Reproductive Life Planning Contreception, Care Planning, Depression/Anxiety and Intimate Partner Violence; Discussed Tobacco Cessation Third Trimester Third Trimester: Pain Management Plans, Labor support person(s), Immediate Larc, Circumcision preference, Movement Monitoring, Signs and Symptoms of Preeclampsia, Infant Feeding Yes , Education and Family Medical Leave or Disability Forms; Discussed Trial of Labor after Counseling Diagnostics Diagnostics Diagnostics: Hgb 10.7 g/dL (12.0-15.0) L Hct 32.6 % (37-47) L Details: HIV: Urine Culture: Sequential Screen: NIPT Screen: Office Procedures Non-stress Test Non-Stress Test Indications for Monitoring: Yes hypertension Heart Rate Baseline: 140 Results POC Urinalysis 2 Dip (Clinic) Office Urine Glucose Negative Last Edit by Temitope Paz on 08/27/22 15:40 Office Urine Protein Negative Last Edit by Temitope Paz on 08/27/22 15:40 Coding Level of Care Code OB Routine Diagnoses Breech presentation O32.1XX0 Depression with anxiety F41.8 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 (4) Gestational hypertension: Status: Acute Comment: growth us 36% at 35 weeks, steroids 4/ and 4/. procardia 60XL. nl labs. plan 2x weekly nsts, weekly yuliana, and weekly labs., home bp monitoring (5) Anemia in preg-unspec: Status: Acute Comment: start Fe daily (6) Difficulty swallowing: Status: Acute Comment: consult to GI- end of august (7) Obesity affecting : Status: Acute Comment: 1 tm GCT encouraged healthy weight gain. BMI 39. abn 1 hr, normal 3 hr GTT in 1 tm. declined 3 tm gct in third trimester- normal home BS checking x 1 week in third trimester. (8) Supervision of high risk , antepartum: Status: Acute Comment: [id number], MIKE 10/05/22, Jarek (9) : Status: Acute Qualifiers: Weeks of gestation: 35 weeks Qualified Code(s): Z3A.35 - 35 weeks gestation of Comment: NIPT low risk, 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 (10) Asthma: Status: Acute Comment: virus and exercise induced Orders: Orders OB NST Today O13.9 - Gestational [-induced] hypertension without significant proteinuria, unspecified trimester POC Urinalysis 2 Dip (Clinic) Today 08/27/22 1642 <Electronically signed by Do Frankel MD> Date Do Frankel MD Cosigner Signature: Date (if applicable) CC: Rosanna Scales DO Work Phone: Start: 08-23-2022 Ultrasound scan for growth Dr. Karin paz Fast Work Phone: Start: 08-23-2022 End: 08-24-2022 Procedure Note: See Note; NOTES: [facility] Imaging Services [address] [place] [address] OB Limited With Biometrics MR#: [id number] Acct: [id number] Name: CRISTELA SHAH Rep #: [id number] : 1995 F 26 From: Pablo jacobs MD PCP: Dr. Rosanna Scales, DO Status: REG CLI Study: OB Limited With Biometrics Date of Exam: 08/23 Exam# [id number] Ordering Dr: Do Frankel STUDY: SECOND AND THIRD TRIMESTER OBSTETRICAL ULTRASOUND REASON FOR EXAM: Female, 26 years old growth -- 4 Weeks TECHNIQUE: Transabdominal PRIOR ULTRASOUND: None. FINDINGS: There is a single intrauterine fetus. The fetus is in an transverse lie with the head on the maternal left side. There is demonstrated cardiac activity with a heart rate of 145 bpm. There is a normal amniotic fluid volume. The largest amniotic fluid pocket measures 6.3 cm. The amniotic fluid index (YULIANA) is 17.4 cm. The placenta is fundal. There are Grade 1 placental changes. The cervix measures 4.4 cm in length. The bilateral adnexal regions are normal. BPD: 8.7 cm = 35 weeks, 2 day(s) HC: 31.1 cm = 34 weeks, 5 day(s) AC: 30.8 cm = 34 weeks, 5 day(s) FL: 6.4cm = 33 weeks, 1 day(s) EGA by ultrasound: 34 weeks 2 day(s) MIKE by ultrasound: 10/02/2022 Estimated weight: 2446 grams Weight percentile: 36% US/OB Limited With Biometrics IMPRESSION: Living intrauterine with estimated gestational age of 34 weeks and 2 days. Electronically Signed: Pablo Atwood MD at 21:53 EDT , CC: Dr. Rosanna Scales DO; Dr. Do Frankel MD Fuel Cell Designer: Signed Rosanna Scales DO Work Phone: Start: 08-22-2022 End: 08-22-2022 Procedure Note: See Note; NOTES: [facility] [address] [place] [address] OFFICE VISIT Date of Service: 08/22/22 MR#: [id number] Acct: [id number] Name: CRISTELA SHAH Rep #: [id number] : 1995 Provider: Dr. Do julian MD Age/Sex: 26/F [place] [facility] [place] Status: Signed Intake Vital Signs 08/13/22 15:10 08/13/22 15:35 08/22/22 13:11 Height 5 ft 4 in 5 ft 4 in 5 ft 4 in Weight: 251 lb BMI 43.0 BP 144/86 H Intake Visit Reasons: 35 WK EST OB/NST Chief Complaint: 35 Week OB/NST Mammalogist Required: No Is patient in pain?: No Allergies No Known Allergies Allergy (Verified 08/22/22 13:14) Medications multivitamin no.47-iron fum 27 mg-folate no.1 1 mg-dha 300 mg capsule (PNV-DHA) cap PO 02/28/22 [History Confirmed 08/22/22] ondansetron 4 mg disintegrating tablet 4 mg PO Q4H PRN nausea and vomiting #60 tabs 04/29/22 [Rx Confirmed 08/22/22] blood sugar diagnostic (Blood Glucose Test strips) #50 ea 07/05/22 [Rx Confirmed 08/22/22] blood-glucose meter #1 ea 07/05/22 [Rx Confirmed 08/22/22] lancets #100 ea 07/05/22 [Rx Confirmed 08/22/22] nifedipine 60 mg tablet,extended release 24 hr (Procardia XL) 60 mg PO DAILY #60 tabs 08/07/22 [Rx Confirmed 08/22/22] citalopram 20 mg tablet (Celexa) 20 mg PO DAILY #30 tabs 08/08/22 [Rx Confirmed 08/22/22] Last Menstrual Period: 12/19/21 Zika: Zika virus screening: Negative : No PFSH PFSH Medical History Abnormality of hormone Depression Family History Father Hypertension Other Colon cancer Diabetes Heart disease Social History adopted: No household members: spouse housing: house current occupational status: employed current occupation: [employer] pets and animals: Yes pets and animals: dog(s) history of recent travel: No Smoking Status: Never smoker alcohol intake: former details: social not while substance use type: does not use well-balanced diet: daily or most days caffeine: No eating out: 4 or more times/week during the past year weight has: decreased > 10 lbs deloris/gnosticist: Restoration seatbelt use: always do you feel safe at home: Yes 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 OB Visit MIKE Calculator Estimated Delivery Date Method Current WG Current Estimate 09/25/22 LMP (Certain) 35w 1d Expected Delivery Route/Plan Labor Preferences- CB/BF classes: encouraged labor support person: manjinder Temple labor intervention preferences: none pain management options preferred: epidural cut cord/dad catch: cord : yes PP control planned: discussed discussed possible routes of delivery and associated risks: [] special requests: [] Specific Issue/Plans Covid status: discussed Flu vaccine: discussed Tdap vaccine: given Rhogam: na LARC form signed: yes movement and labor precautions reviewed. Problem list reviewed and updated with the most current plan of care details and appropriate orders placed. Relevant counseling for the gestational age provided. Continue routine care and follow up unless otherwise noted in visit notes/problem list details Initial Weight: Not Recorded Date -???-???-???-???-???-??? -???-???-???-???-???-??? - EGA Weight BP Urine Prot -???-???-???-???-???-??? -???-???-???-???-???-??? - Glucose FHR FuHt Pres Dilation -???-???-???-???-???-??? -???-???-???-???-???-??? - Effaced St Visit Note 03/04/22 -???-???-???-???-???-??? -???-???-???-???-???-??? - 10w 5d 233 lb 129/73 -???-???-???-???-???-??? -???-???-???-???-???-??? - 180 -???-???-???-???-???-??? -???-???-???-???-???-??? - SM- CRL 2.8 cm cons with LMP 04/01/22 -???-???-???-???-???-??? -???-???-???-???-???-??? - 14w 5d 237 lb 136/88 Negative -???-???-???-???-???-??? -???-???-???-???-???-??? - Negative 157 -???-???-???-???-???-??? -???-???-???-???-???-??? - SM- no vb cr amping 04/29/22 -???-???-???-???-???-??? -???-???-???-???-???-??? - 18w 5d 239 lb 134/82 Negative -???-???-???-???-???-??? -???-???-???-???-???-??? - Negative 156 -???-???-???-???-???-??? -???-???-???-???-???-??? - MH-No VB rec ently. Had in past. [facility] anatomy ordered. Kati for nausea. 05/27/22 -???-???-???-???-???-??? -???-???-???-???-???-??? - 22w 5d 240 lb 130/84 Negative -???-???-???-???-???-??? -???-???-???-???-???-??? - Negative 152 -???-???-???-???-???-??? -???-???-???-???-???-??? - -No VB, JOSE FJv Givens FM. Some reflux/difficulty swalloing-try pepcid 06/26/22 -???-???-???-???-???-??? -???-???-???-???-???-??? - 27w 0d 241 lb 8 oz 138/84 Negative -???-???-???-???-???-??? -???-???-???-???-???-??? - Negative 164 -???-???-???-???-???-??? -???-???-???-???-???-??? - JV- still canas ving swallowing issues. consulting GI. no lof, vaginal bleeding, or dec fm. 07/10/22 -???-???-???-???-???-??? -???-???-???-???-???-??? - 29w 0d 245 lb 8 oz 132/86 Negative -???-???-???-???-???-??? -???-???-???-???-???-??? - Negative 148 29 -???-???-???-???-???-??? -???-???-???-???-???-??? - -No Vb, LO F. Good FM. Start FE. Larc. Tdap. Is doing glucose checks QID and will call after 1 week with levels. 07/23/22 -???-???-???-???-???-??? -???-???-???-???-???-??? - 30w 6d 245 lb 146/86 146/86 Negative -???-???-???-???-???-??? -???-???-???-???-???-??? - Negative 150 31 -???-???-???-???-???-??? -???-???-???-???-???-??? - KW- +FM. No lof/vb/ctx BS under 90/120. GBS discussed. to l d for monitor ing of bp 07/26/22 -???-???-???-???-???-??? -???-???-???-???-???-??? - 31w 2d 241 lb 8 oz 134/84 Negative -???-???-???-???-???-??? -???-???-???-???-???-??? - Negative 150 -???-???-???-???-???-??? -???-???-???-???-???-??? - SM- SM- bps at home improving on 60 pr ocardia no canas bv no vb lof good fm no regular ctx 07/30/22 -???-???-???-???-???-??? -???-???-???-???-???-??? - 31w 6d 246 lb 6 oz 137/91 137/91 Negative -???-???-???-???-???-??? -???-???-???-???-???-??? - Negative 145 32 -???-???-???-???-???-??? -???-???-???-???-???-??? - KW-+FM. No h eadache, vb,lof,ctx. BPs at home 120/70s. BS under 90/ 120. no complaints-feels much better 08/05/22 -???-???-???-???-???-??? -???-???-???-???-???-??? - 32w 5d 248 lb 2 oz 124/86 -???-???-???-???-???-??? -???-???-???-???-???-??? - 130 -???-???-???-???-???-??? -???-???-???-???-???-??? - SM- nl bps a t home no canas bv no regular ctx vb lof good fm 08/08/22 -???-???-???-???-???-??? -???-???-???-???-???-??? - 33w 1d 248 lb 4 oz 130/92 130/92 Negative -???-???-???-???-???-??? -???-???-???-???-???-??? - Negative 150 -???-???-???-???-???-??? -???-???-???-???-???-??? - KW-NST only +FM, no contractions. BPs good at home. celexa refilled. 08/13/22 -???-???-???-???-???-??? -???-???-???-???-???-??? - 33w 6d 248 lb 8 oz 143/92 143/92 Negative -???-???-???-???-???-??? -???-???-???-???-???-??? - Negative 145 34 -???-???-???-???-???-??? -???-???-???-???-???-??? - KW- + FM, no ctx/vb/lof. BP ok at home. 139/86 highest at home this week, but states she had a stressful week, no concerns. 08/16/22 -???-???-???-???-???-??? -???-???-???-???-???-??? - 34w 2d 254 lb 152/93 134/85 Negative -???-???-???-???-???-??? -???-???-???-???-???-??? - Negative 140 -???-???-???-???-???-??? -???-???-???-???-???-??? - JV- no heada iglesia, visual changes, nst reactive. plan for 37 week IOL for pih. no proteinuria so far. 08/20/22 -???-???-???-???-???-??? -???-???-???-???-???-??? - 34w 6d 249 lb 8 oz 146/92 141/91 Negative -???-???-???-???-???-??? -???-???-???-???-???-??? - Negative 150 -???-???-???-???-???-??? -???-???-???-???-???-??? - JV- bp's at home are all normal. (down to 117/68), no headaches, visual changes, RUQ pain or extreme swelling. baby was breech last week. plan to rpt bedside scan next visit before scheduling iol vs primary section. 08/22/22 -???-???-???-???-???-??? -???-???-???-???-???-??? - 35w 1d 251 lb 144/86 Negative -???-???-???-???-???-??? -???-???-???-???-???-??? - Negative 140 35 -???-???-???-???-???-??? -???-???-???-???-???-??? - SM- no vb lo f good fm no regular ctx ACOG First Trimester First Trimester: Second Trimester Second Trimester: Signs and Symptoms of Labor, Selecting a care provider, Reproductive Life Planning Contreception, Care Planning, Depression/Anxiety and Intimate Partner Violence; Discussed Tobacco Cessation Third Trimester Third Trimester: Pain Management Plans, Labor support person(s), Immediate Larc, Circumcision preference, Movement Monitoring, Signs and Symptoms of Preeclampsia, Feeding Yes , Education and Family Medical Leave or Disability Forms; Discussed Trial of Labor after Counseling Diagnostics Diagnostics Diagnostics: Hgb 10.8 g/dL (12.0-15.0) L Hct 33.8 % (37-47) L Details: HIV: Urine Culture: Sequential Screen: NIPT Screen: Office Procedures Non-stress Test Non-Stress Test Indications for Monitoring: Yes hypertension Heart Rate Baseline: 145 Heart Rate Variability: moderate Movement: Present Heart Rate Accelerations: Present Decelerations: Absent Contractions: Absent Impression: Yes Reactive Non-Stress Test Category 1 Results POC Urinalysis 2 Dip (Clinic) Office Urine Glucose Negative Last Edit by Cande Rogers on 08/22/22 13:15 Office Urine Protein Negative Last Edit by Cande Rogers on 08/22/22 13:15 Coding Level of Care Code OB Routine Diagnoses Breech presentation O32.1XX0 Depression with anxiety F41.8 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 Z14.8 Gestational hypertension O13.9 Anemia in preg-unspec O99.019 Difficulty swallowing R13.10 Obesity affecting O99.210 Supervision of high risk , antepartum O09.90 Z3A.35 Weeks of gestation: 35 weeks Asthma J45.909 CPT Codes Non-Stress Test (03590) Assessment and Plan Assessment and Plan (1) Breech presentation: Status: Acute Comment: plan to repeat scan at 35 and 36 weeks in office before scheduling primary vs induction at 37 weeks due to PIH. 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 (4) Gestational hypertension: Status: Acute Comment: growth us, steroids 07/23 and 07/24. procardia 60XL. nl labs. plan 2x weekly nsts, weekly yuliana, and weekly labs., home bp monitoring (5) Anemia in preg-unspec: Status: Acute Comment: start Fe daily (6) Difficulty swallowing: Status: Acute Comment: consult to GI- end of august (7) Obesity affecting : Status: Acute Comment: 1 tm GCT encouraged healthy weight gain. BMI 39. abn 1 hr, normal 3 hr GTT in 1 tm. declined 3 tm gct in third trimester- normal home BS checking x 1 week in third trimester. (8) Supervision of high risk , antepartum: Status: Acute Comment: [id number], MIKE 10/05/22, Jarek (9) : Status: Acute Qualifiers: Weeks of gestation: 35 weeks Qualified Code(s): Z3A.35 - 35 weeks gestation of Comment: NIPT low risk, 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 (10) Asthma: Status: Acute Comment: virus and exercise induced Orders: Orders OB NST Today O13.9 - Gestational [-induced] hypertension without significant proteinuria, unspecified trimester POC Urinalysis 2 Dip (Clinic) Today Comprehensive Metabolic Profil Today O13.9 - Gestational [-induced] hypertension without significant proteinuria, unspecified trimester CBC W/Diff, Automated Today O13.9 - Gestational [-induced] hypertension without significant proteinuria, unspecified trimester Protein+Creatinine Ratio,Urine Today O13.9 - Gestational [-induced] hypertension without significant proteinuria, unspecified trimester 08/22/22 1418 <Electronically signed by Do Frankel MD> Date Do Frankel MD Cosigner Signature: Date (if applicable) CC: Rosanna Scales DO Work Phone: Start: 08-20-2022 End: 08-20-2022 Procedure Note: See Note; NOTES: [facility] [address] [place] [address] OFFICE VISIT Date of Service: 08/20/22 MR#: [id number] Acct: [id number] Name: CRISTELA SHAH Rep #: [id number] : 1995 Provider: Dr. Gay Gifford DO Age/Sex: 26/F [place] [facility] [place] Status: Signed Intake Vital Signs 07/26/22 11:07 08/20/22 15:27 08/20/22 15:30 08/20/22 16:02 Height 5 ft 4 in 5 ft 4 in 5 ft 4 in Weight: 249 lb 8 oz BMI 42.8 BP 146/92 H 141/91 H Intake Visit Reasons: 35 WK OB/NST Mammalogist Required: No Is patient in pain?: No Allergies No Known Allergies Allergy (Verified 08/20/22 15:27) Medications multivitamin no.47-iron fum 27 mg-folate no.1 1 mg-dha 300 mg capsule (PNV-DHA) cap PO 02/28/22 [History Confirmed 08/20/22] ondansetron 4 mg disintegrating tablet 4 mg PO Q4H PRN nausea and vomiting #60 tabs 04/29/22 [Rx Confirmed 08/20/22] blood sugar diagnostic (Blood Glucose Test strips) #50 ea 07/05/22 [Rx Confirmed 08/20/22] blood-glucose meter #1 ea 07/05/22 [Rx Confirmed 08/20/22] lancets #100 ea 07/05/22 [Rx Confirmed 08/20/22] nifedipine 60 mg tablet,extended release 24 hr (Procardia XL) 60 mg PO DAILY #60 tabs 08/07/22 [Rx Confirmed 08/20/22] citalopram 20 mg tablet (Celexa) 20 mg PO DAILY #30 tabs 08/08/22 [Rx Confirmed 08/20/22] Last Menstrual Period: 12/19/21 Zika: Zika virus screening: Negative : No PFSH PFSH Medical History Abnormality of hormone Depression Family History Father Hypertension Other Colon cancer Diabetes Heart disease Social History adopted: No household members: spouse housing: house current occupational status: employed current occupation: [employer] pets and animals: Yes pets and animals: dog(s) history of recent travel: No Smoking Status: Never smoker alcohol intake: former details: social not while substance use type: does not use well-balanced diet: daily or most days caffeine: No eating out: 4 or more times/week during the past year weight has: decreased > 10 lbs deloris/gnosticist: Restoration seatbelt use: always do you feel safe at home: Yes 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 OB Visit MIKE Calculator Estimated Delivery Date Method Current WG Current Estimate 09/25/22 LMP (Certain) 34w 6d Expected Delivery Route/Plan Labor Preferences- CB/BF classes: encouraged labor support person: manjinder Temple and Amber labor intervention preferences: none pain management options preferred: epidural cut cord/dad catch: cord : yes PP control planned: discussed discussed possible routes of delivery and associated risks: [] special requests: [] Specific Issue/Plans Covid status: discussed Flu vaccine: discussed Tdap vaccine: given Rhogam: na LARC form signed: yes movement and labor precautions reviewed. Problem list reviewed and updated with the most current plan of care details and appropriate orders placed. Relevant counseling for the gestational age provided. Continue routine care and follow up unless otherwise noted in visit notes/problem list details Initial Weight: Not Recorded Date -???-???-???-???-???-??? -???-???-???-???-???-??? - EGA Weight BP Urine Prot -???-???-???-???-???-??? -???-???-???-???-???-??? - Glucose FHR FuHt Pres Dilation -???-???-???-???-???-??? -???-???-???-???-???-??? - Effaced St Visit Note 03/04/22 -???-???-???-???-???-??? -???-???-???-???-???-??? - 10w 5d 233 lb 129/73 -???-???-???-???-???-??? -???-???-???-???-???-??? - 180 -???-???-???-???-???-??? -???-???-???-???-???-??? - SM- CRL 2.8 cm cons with LMP 04/01/22 -???-???-???-???-???-??? -???-???-???-???-???-??? - 14w 5d 237 lb 136/88 Negative -???-???-???-???-???-??? -???-???-???-???-???-??? - Negative 157 -???-???-???-???-???-??? -???-???-???-???-???-??? - SM- no vb cr amping 04/29/22 -???-???-???-???-???-??? -???-???-???-???-???-??? - 18w 5d 239 lb 134/82 Negative -???-???-???-???-???-??? -???-???-???-???-???-??? - Negative 156 -???-???-???-???-???-??? -???-???-???-???-???-??? - -No VB rec ently. Had in past. [facility] anatomy US ordered. Kati for nausea. 05/27/22 -???-???-???-???-???-??? -???-???-???-???-???-??? - 22w 5d 240 lb 130/84 Negative -???-???-???-???-???-??? -???-???-???-???-???-??? - Negative 152 -???-???-???-???-???-??? -???-???-???-???-???-??? - -No VB, LO F. Good FM. Some reflux/difficulty swalloing-try pepcid 06/26/22 -???-???-???-???-???-??? -???-???-???-???-???-??? - 27w 0d 241 lb 8 oz 138/84 Negative -???-???-???-???-???-??? -???-???-???-???-???-??? - Negative 164 -???-???-???-???-???-??? -???-???-???-???-???-??? - JV- still canas ving swallowing issues. consulting GI. no lof, vaginal bleeding, or dec fm. 07/10/22 -???-???-???-???-???-??? -???-???-???-???-???-??? - 29w 0d 245 lb 8 oz 132/86 Negative -???-???-???-???-???-??? -???-???-???-???-???-??? - Negative 148 29 -???-???-???-???-???-??? -???-???-???-???-???-??? - -No Vb, LO F. Good FM. Start FE. Larc. Tdap. Is doing glucose checks QID and will call after 1 week with levels. 07/23/22 -???-???-???-???-???-??? -???-???-???-???-???-??? - 30w 6d 245 lb 146/86 146/86 Negative -???-???-???-???-???-??? -???-???-???-???-???-??? - Negative 150 31 -???-???-???-???-???-??? -???-???-???-???-???-??? - - +FM. No lof/vb/ctx BS under 90/120. GBS discussed. to l d for monitor ing of bp 07/26/22 -???-???-???-???-???-??? -???-???-???-???-???-??? - 31w 2d 241 lb 8 oz 134/84 Negative -???-???-???-???-???-??? -???-???-???-???-???-??? - Negative 150 -???-???-???-???-???-??? -???-???-???-???-???-??? - SM- SM- bps at home improving on 60 pr ocardia no canas bv no vb lof good fm no regular ctx 07/30/22 -???-???-???-???-???-??? -???-???-???-???-???-??? - 31w 6d 246 lb 6 oz 137/91 137/91 Negative -???-???-???-???-???-??? -???-???-???-???-???-??? - Negative 145 32 -???-???-???-???-???-??? -???-???-???-???-???-??? - KW-+FM. No h eadache, vb,lof,ctx. BPs at home 120/70s. BS under 90/ 120. no complaints-feels much better 08/05/22 -???-???-???-???-???-??? -???-???-???-???-???-??? - 32w 5d 248 lb 2 oz 124/86 -???-???-???-???-???-??? -???-???-???-???-???-??? - 130 -???-???-???-???-???-??? -???-???-???-???-???-??? - SM- nl bps a t home no canas bv no regular ctx vb lof good fm 08/08/22 -???-???-???-???-???-??? -???-???-???-???-???-??? - 33w 1d 248 lb 4 oz 130/92 130/92 Negative -???-???-???-???-???-??? -???-???-???-???-???-??? - Negative 150 -???-???-???-???-???-??? -???-???-???-???-???-??? - KW-NST only +FM, no contractions. BPs good at home. celexa refilled. 08/13/22 -???-???-???-???-???-??? -???-???-???-???-???-??? - 33w 6d 248 lb 8 oz 143/92 143/92 Negative -???-???-???-???-???-??? -???-???-???-???-???-??? - Negative 145 34 -???-???-???-???-???-??? -???-???-???-???-???-??? - KW- + FM, no ctx/vb/lof. BP ok at home. 139/86 highest at home this week, but states she had a stressful week, no concerns. 08/16/22 -???-???-???-???-???-??? -???-???-???-???-???-??? - 34w 2d 254 lb 152/93 134/85 Negative -???-???-???-???-???-??? -???-???-???-???-???-??? - Negative 140 -???-???-???-???-???-??? -???-???-???-???-???-??? - JV- no heada iglesia, visual changes, nst reactive. plan for 37 week IOL for pih. no proteinuria so far. 08/20/22 -???-???-???-???-???-??? -???-???-???-???-???-??? - 34w 6d 249 lb 8 oz 146/92 141/91 Negative -???-???-???-???-???-??? -???-???-???-???-???-??? - Negative 150 -???-???-???-???-???-??? -???-???-???-???-???-??? - JV- bp's at home are all normal. (down to 117/68), no headaches, visual changes, RUQ pain or extreme swelling. baby was breech last week. plan to rpt bedside scan next visit before scheduling iol vs primary section. ACOG First Trimester First Trimester: Second Trimester Second Trimester: Signs and Symptoms of Labor, Selecting a care provider, Reproductive Life Planning Contreception, Care Planning, Depression/Anxiety and Intimate Partner Violence; Discussed Tobacco Cessation Third Trimester Third Trimester: Pain Management Plans, Labor support person(s), Immediate Larc, Circumcision preference, Movement Monitoring, Signs and Symptoms of Preeclampsia, Infant Feeding Yes , Education and Family Medical Leave or Disability Forms; Discussed Trial of Labor after Counseling Diagnostics Diagnostics Diagnostics: Hgb 10.8 g/dL (12.0-15.0) L Hct 33.8 % (37-47) L Details: HIV: Urine Culture: Sequential Screen: NIPT Screen: Office Procedures Non-stress Test Non-Stress Test Indications for Monitoring: Yes hypertension Heart Rate Baseline: 150 Heart Rate Variability: moderate Movement: Present Heart Rate Accelerations: Present Decelerations: Absent Contractions: Absent Impression: Yes Reactive Non-Stress Test Results POC Urinalysis 2 Dip (Clinic) Office Urine Glucose Negative Last Edit by Ciera Fields on 08/20/22 15:41 Office Urine Protein Negative Last Edit by Ciera Fields on 08/20/22 15:41 Coding Level of Care Code OB Routine Diagnoses Depression with anxiety F41.8 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 Z14.8 Anemia in preg-unspec O99.019 Gestational hypertension O13.9 Difficulty swallowing R13.10 Obesity affecting O99.210 Supervision of high risk , antepartum O09.90 Z3A.34 Weeks of gestation: 34 weeks Asthma J45.909 Breech presentation O32.1XX0 CPT Codes Non-Stress Test (22397) Assessment and Plan Assessment and Plan (1) Depression with anxiety: Status: Acute (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 (3) Anemia in preg-unspec: Status: Acute Comment: start Fe daily (4) Gestational hypertension: Status: Acute Comment: growth us, steroids 07/23 and 07/24. procardia 60XL. nl labs. plan 2x weekly nsts, weekly yuliana, and weekly labs., home bp monitoring (5) Difficulty swallowing: Status: Acute Comment: consult to GI- end of august (6) Obesity affecting : Status: Acute Comment: 1 tm GCT encouraged healthy weight gain. BMI 39. abn 1 hr, normal 3 hr GTT in 1 tm. declined 3 tm gct in third trimester- normal home BS checking x 1 week in third trimester. (7) Supervision of high risk , antepartum: Status: Acute Comment: [id number], MIKE 10/05/22, Jarek (8) : Status: Acute Qualifiers: Weeks of gestation: 34 weeks Qualified Code(s): Z3A.34 - 34 weeks gestation of Comment: NIPT low risk, 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 (9) Asthma: Status: Acute Comment: virus and exercise induced (10) Breech presentation: Status: Acute Comment: plan to repeat scan at 35 and 36 weeks in office before scheduling primary vs induction at 37 weeks due to PIH. Orders: Orders OB NST Today O13.9 - Gestational [-induced] hypertension without significant proteinuria, unspecified trimester POC Urinalysis 2 Dip (Clinic) Today 08/20/22 1605 <Electronically signed by Gay Gan DO> Date Gay Gan DO Cosigner Signature: Date (if applicable) CC: Rosanna Scales DO Work Phone: Start: 08-16-2022 Ultrasonography for antepartum monitoring of fetus Dr. Rosanna Scales Work Phone: Start: 08-16-2022 End: 08-16-2022 Procedure Note: See Note; NOTES: [facility] Imaging Services [address] [place] [address] OB Limited (No Biometrics) MR#: [id number] Acct: [id number] Name: CRISTELA SHAH Rep #: [id number] : 1995 F 26 From: Shemar Cohen MD PCP: Dr. Rosanna Scales DO Status: REG CLI Study: OB Limited (No Biometrics) Date of Exam: 08/16 Exam# [id number] Ordering Dr: Do Frankel STUDY: SECOND AND THIRD TRIMESTER OBSTETRICAL ULTRASOUND - LIMITED REASON FOR EXAM: Female, 26 years old YULIANA LMP: PRIOR ULTRASOUND: None. TECHNIQUE: TECHNICAL QUALITY: Adequate. FINDINGS: There is a single intrauterine fetus. There is demonstrated cardiac activity with a heart rate of 144 bpm. There is a normal amniotic fluid volume. The largest amniotic fluid pocket measures 4.6 cm. The amniotic fluid index (YULIANA) is 15.7 cm. The cervix measures 3.0 cm in length. Placenta is fundal. US/OB Limited (No Biometrics) IMPRESSION: Single viable intrauterine gestation. YULIANA 15.79 cm. Electronically Signed: Shemar Cohen MD, ORALIA at 18:07 EDT Reading Location ID and State: [facility] / [place] Tel , Service support , CC: Dr. Rosanna Scales DO; Dr. Do Frankel MD Fuel Cell Designer: Signed Rosanna Scales DO Work Phone: Start: 08-16-2022 End: 08-16-2022 Procedure Note: See Note; NOTES: [facility] [address] [place] [address] OFFICE VISIT Date of Service: 08/16/22 MR#: [id number] Acct: [id number] Name: CRISTELA SHAH Rep #: [id number] : 1995 Provider: Dr. Gay Gifford DO Age/Sex: 26/F [place] [facility] [place] Status: Signed Intake Vital Signs 08/13/22 15:35 08/16/22 15:23 08/16/22 15:38 08/16/22 16:18 Height 5 ft 4 in 5 ft 4 in 5 ft 4 in Weight: 254 lb BMI 43.6 BP 152/93 H 134/85 H Intake Visit Reasons: 34 WK NST Chief Complaint: 34 Week NST Allergies No Known Allergies Allergy (Verified 08/16/22 15:39) Medications multivitamin no.47-iron fum 27 mg-folate no.1 1 mg-dha 300 mg capsule (PNV-DHA) cap PO 02/28/22 [History Confirmed 08/16/22] ondansetron 4 mg disintegrating tablet 4 mg PO Q4H PRN nausea and vomiting #60 tabs 04/29/22 [Rx Confirmed 08/16/22] blood sugar diagnostic (Blood Glucose Test strips) #50 ea 07/05/22 [Rx Confirmed 08/16/22] blood-glucose meter #1 ea 07/05/22 [Rx Confirmed 08/16/22] lancets #100 ea 07/05/22 [Rx Confirmed 08/16/22] nifedipine 60 mg tablet,extended release 24 hr (Procardia XL) 60 mg PO DAILY #60 tabs 08/07/22 [Rx Confirmed 08/16/22] citalopram 20 mg tablet (Celexa) 20 mg PO DAILY #30 tabs 08/08/22 [Rx Confirmed 08/16/22] Last Menstrual Period: 12/19/21 Zika: Zika virus screening: Negative : No PFSH PFSH Medical History Abnormality of hormone Depression Family History Father Hypertension Other Colon cancer Diabetes Heart disease Social History adopted: No household members: spouse housing: house current occupational status: employed current occupation: [employer] pets and animals: Yes pets and animals: dog(s) history of recent travel: No Smoking Status: Never smoker alcohol intake: former details: social not while substance use type: does not use well-balanced diet: daily or most days caffeine: No eating out: 4 or more times/week during the past year weight has: decreased > 10 lbs deloris/gnosticist: Restoration seatbelt use: always do you feel safe at home: Yes 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 OB Visit MIKE Calculator Estimated Delivery Date Method Current WG Current Estimate 09/25/22 LMP (Certain) 34w 2d Expected Delivery Route/Plan Labor Preferences- CB/BF classes: encouraged labor support person: manjinder Temple labor intervention preferences: none pain management options preferred: epidural cut cord/dad catch: cord : yes PP control planned: discussed discussed possible routes of delivery and associated risks: [] special requests: [] Specific Issue/Plans Covid status: discussed Flu vaccine: discussed Tdap vaccine: given Rhogam: na LARC form signed: yes movement and labor precautions reviewed. Problem list reviewed and updated with the most current plan of care details and appropriate orders placed. Relevant counseling for the gestational age provided. Continue routine care and follow up unless otherwise noted in visit notes/problem list details Initial Weight: Not Recorded Date -???-???-???-???-???-??? -???-???-???-???-???-??? - EGA Weight BP Urine Prot -???-???-???-???-???-??? -???-???-???-???-???-??? - Glucose FHR FuHt Pres Dilation -???-???-???-???-???-??? -???-???-???-???-???-??? - Effaced St Visit Note 03/04/22 -???-???-???-???-???-??? -???-???-???-???-???-??? - 10w 5d 233 lb 129/73 -???-???-???-???-???-??? -???-???-???-???-???-??? - 180 -???-???-???-???-???-??? -???-???-???-???-???-??? - SM- CRL 2.8 cm cons with LMP 04/01/22 -???-???-???-???-???-??? -???-???-???-???-???-??? - 14w 5d 237 lb 136/88 Negative -???-???-???-???-???-??? -???-???-???-???-???-??? - Negative 157 -???-???-???-???-???-??? -???-???-???-???-???-??? - - no vb cr amping 04/29/22 -???-???-???-???-???-??? -???-???-???-???-???-??? - 18w 5d 239 lb 134/82 Negative -???-???-???-???-???-??? -???-???-???-???-???-??? - Negative 156 -???-???-???-???-???-??? -???-???-???-???-???-??? - -No VB rec ently. Had in past. [facility] anatomy US ordered. Kati for nausea. 05/27/22 -???-???-???-???-???-??? -???-???-???-???-???-??? - 22w 5d 240 lb 130/84 Negative -???-???-???-???-???-??? -???-???-???-???-???-??? - Negative 152 -???-???-???-???-???-??? -???-???-???-???-???-??? - -No VB, JOSE ALCALA. Some reflux/difficulty swalloing-try pepcid 06/26/22 -???-???-???-???-???-??? -???-???-???-???-???-??? - 27w 0d 241 lb 8 oz 138/84 Negative -???-???-???-???-???-??? -???-???-???-???-???-??? - Negative 164 -???-???-???-???-???-??? -???-???-???-???-???-??? - JV- still canas ving swallowing issues. consulting GI. no lof, vaginal bleeding, or dec fm. 07/10/22 -???-???-???-???-???-??? -???-???-???-???-???-??? - 29w 0d 245 lb 8 oz 132/86 Negative -???-???-???-???-???-??? -???-???-???-???-???-??? - Negative 148 29 -???-???-???-???-???-??? -???-???-???-???-???-??? - -No Vb, LO F. Good FM. Start FE. Larc. Tdap. Is doing glucose checks QID and will call after 1 week with levels. 07/23/22 -???-???-???-???-???-??? -???-???-???-???-???-??? - 30w 6d 245 lb 146/86 146/86 Negative -???-???-???-???-???-??? -???-???-???-???-???-??? - Negative 150 31 -???-???-???-???-???-??? -???-???-???-???-???-??? - KW- +FM. No lof/vb/ctx BS under 90/120. GBS discussed. to l d for monitor ing of bp 07/26/22 -???-???-???-???-???-??? -???-???-???-???-???-??? - 31w 2d 241 lb 8 oz 134/84 Negative -???-???-???-???-???-??? -???-???-???-???-???-??? - Negative 150 -???-???-???-???-???-??? -???-???-???-???-???-??? - SM- SM- bps at home improving on 60 pr ocardia no canas bv no vb lof good fm no regular ctx 07/30/22 -???-???-???-???-???-??? -???-???-???-???-???-??? - 31w 6d 246 lb 6 oz 137/91 137/91 Negative -???-???-???-???-???-??? -???-???-???-???-???-??? - Negative 145 32 -???-???-???-???-???-??? -???-???-???-???-???-??? - KW-+FM. No h eadache, vb,lof,ctx. BPs at home 120/70s. BS under 90/ 120. no complaints-feels much better 08/05/22 -???-???-???-???-???-??? -???-???-???-???-???-??? - 32w 5d 248 lb 2 oz 124/86 -???-???-???-???-???-??? -???-???-???-???-???-??? - 130 -???-???-???-???-???-??? -???-???-???-???-???-??? - SM- nl bps a t home no canas bv no regular ctx vb lof good fm 08/08/22 -???-???-???-???-???-??? -???-???-???-???-???-??? - 33w 1d 248 lb 4 oz 130/92 130/92 Negative -???-???-???-???-???-??? -???-???-???-???-???-??? - Negative 150 -???-???-???-???-???-??? -???-???-???-???-???-??? - KW-NST only +FM, no contractions. BPs good at home. celexa refilled. 08/13/22 -???-???-???-???-???-??? -???-???-???-???-???-??? - 33w 6d 248 lb 8 oz 143/92 143/92 Negative -???-???-???-???-???-??? -???-???-???-???-???-??? - Negative 145 34 -???-???-???-???-???-??? -???-???-???-???-???-??? - KW- + FM, no ctx/vb/lof. BP ok at home. 139/86 highest at home this week, but states she had a stressful week, no concerns. 08/16/22 -???-???-???-???-???-??? -???-???-???-???-???-??? - 34w 2d 254 lb 152/93 134/85 Negative -???-???-???-???-???-??? -???-???-???-???-???-??? - Negative 140 -???-???-???-???-???-??? -???-???-???-???-???-??? - JV- no heada iglesia, visual changes, nst reactive. plan for 37 week IOL for pih. no proteinuria so far. ACOG First Trimester First Trimester: Second Trimester Second Trimester: Signs and Symptoms of Labor, Selecting a care provider, Reproductive Life Planning Contreception, Care Planning, Depression/Anxiety and Intimate Partner Violence; Discussed Tobacco Cessation Third Trimester Third Trimester: Pain Management Plans, Labor support person(s), Immediate Larc, Circumcision preference, Movement Monitoring, Signs and Symptoms of Preeclampsia, Feeding Yes , Education and Family Medical Leave or Disability Forms; Discussed Trial of Labor after Counseling Diagnostics Diagnostics Diagnostics: Hgb 10.8 g/dL (12.0-15.0) L Hct 33.8 % (37-47) L Details: HIV: Urine Culture: Sequential Screen: NIPT Screen: ROS Const Denies fever(s) GI Reports as per HPI and Denies abdominal pain Reports as per HPI, Denies abnormal vaginal bleeding, Denies dysuria and Denies vaginal discharge Exam Const General: healthy appearing, comfortable and no acute distress GI Inspection: normal to inspection Palpation: soft and nontender Office Procedures Non-stress Test Non-Stress Test Indications for Monitoring: Yes hypertension Time: 01:40 Heart Rate Variability: moderate Movement: Present Heart Rate Accelerations: Present Decelerations: Absent Contractions: Absent Impression: Yes Reactive Non-Stress Test Results POC Urinalysis 2 Dip (Clinic) Office Urine Glucose Negative Last Edit by Julia Patricio on 08/16/22 15:41 Office Urine Protein Negative Last Edit by Julia Sintia on 08/16/22 15:41 Coding Level of Care Code OB Routine Diagnoses Depression with anxiety F41.8 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 (3) Gestational hypertension: Status: Acute Comment: growth us, steroids 07/23 and 4. procardia 60XL. nl labs. plan 2x weekly nsts, weekly yuliana, and weekly labs., home bp monitoring (4) Anemia in preg-unspec: Status: Acute Comment: start Fe daily (5) Difficulty swallowing: Status: Acute Comment: consult to GI- end of august (6) Obesity affecting : Status: Acute Comment: 1 tm GCT encouraged healthy weight gain. BMI 39. abn 1 hr, normal 3 hr GTT in 1 tm. declined 3 tm gct in third trimester- normal home BS checking x 1 week in third trimester. (7) Supervision of high risk , antepartum: Status: Acute Comment: [id number], MIKE 10/05/22, Jarek (8) : Status: Acute Qualifiers: Weeks of gestation: 34 weeks Qualified Code(s): Z3A.34 - 34 weeks gestation of Comment: NIPT low risk, 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 (9) Asthma: Status: Acute Comment: virus and exercise induced Orders: Orders OB NST Today O99.210 - Obesity complicating , unspecified trimester POC Urinalysis 2 Dip (Clinic) Today 08/16/22 1622 <Electronically signed by Gay Gan DO> Date Gay Gan DO Cosigner Signature: Date (if applicable) CC: Rosanna Scales DO Work Phone: Start: 08-13-2022 End: 08-13-2022 Procedure Note: See Note; NOTES: [facility] [address] [place], [place] [id number] OFFICE VISIT Date of Service: 08/13/22 MR#: [id number] Acct: [id number] Name: CRISTELA SHAH Rep #: [id number] : 1995 Provider: AL Castaneda ams Age/Sex: 26/F [place] [facility] [place] Status: Signed Intake Vital Signs 07/26/22 11:04 08/13/22 15:08 08/13/22 15:10 Height 5 ft 4 in 5 ft 4 in 5 ft 4 in Weight: 248 lb 8 oz BMI 42.6 BP 143/92 H Intake Visit Reasons: 34 WK OB/NST Mammalogist Required: No Is patient in pain?: No Allergies No Known Allergies Allergy (Verified 08/13/22 15:06) Medications multivitamin no.47-iron fum 27 mg-folate no.1 1 mg-dha 300 mg capsule (PNV-DHA) cap PO 02/28/22 [History Confirmed 08/13/22] ondansetron 4 mg disintegrating tablet 4 mg PO Q4H PRN nausea and vomiting #60 tabs 04/29/22 [Rx Confirmed 08/13/22] blood sugar diagnostic (Blood Glucose Test strips) #50 ea 07/05/22 [Rx Confirmed 08/13/22] blood-glucose meter #1 ea 07/05/22 [Rx Confirmed 08/13/22] lancets #100 ea 07/05/22 [Rx Confirmed 08/13/22] nifedipine 60 mg tablet,extended release 24 hr (Procardia XL) 60 mg PO DAILY #60 tabs 08/07/22 [Rx Confirmed 08/13/22] citalopram 20 mg tablet (Celexa) 20 mg PO DAILY #30 tabs 08/08/22 [Rx Confirmed 08/13/22] Last Menstrual Period: 12/19/21 Zika: Zika virus screening: Negative : No PFSH PFSH Medical History Abnormality of hormone Depression Family History Father Hypertension Other Colon cancer Diabetes Heart disease Social History adopted: No household members: spouse housing: house current occupational status: employed current occupation: [employer] pets and animals: Yes pets and animals: dog(s) history of recent travel: No Smoking Status: Never smoker alcohol intake: former details: social not while substance use type: does not use well-balanced diet: daily or most days caffeine: No eating out: 4 or more times/week during the past year weight has: decreased > 10 lbs deloris/gnosticist: Restoration seatbelt use: always do you feel safe at home: Yes 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 OB Visit MIKE Calculator Estimated Delivery Date Method Current WG Current Estimate 09/25/22 LMP (Certain) 33w 6d Expected Delivery Route/Plan Labor Preferences- CB/BF classes: encouraged labor support person: manjinder Temple and Amber labor intervention preferences: none pain management options preferred: epidural cut cord/dad catch: cord : yes PP control planned: discussed discussed possible routes of delivery and associated risks: [] special requests: [] Specific Issue/Plans Covid status: discussed Flu vaccine: discussed Tdap vaccine: given Rhogam: na LARC form signed: yes movement and labor precautions reviewed. Problem list reviewed and updated with the most current plan of care details and appropriate orders placed. Relevant counseling for the gestational age provided. Continue routine care and follow up unless otherwise noted in visit notes/problem list details Initial Weight: Not Recorded Date -???-???-???-???-???-??? -???-???-???-???-???-??? - EGA Weight BP Urine Prot -???-???-???-???-???-??? -???-???-???-???-???-??? - Glucose FHR FuHt Pres Dilation -???-???-???-???-???-??? -???-???-???-???-???-??? - Effaced St Visit Note 03/04/22 -???-???-???-???-???-??? -???-???-???-???-???-??? - 10w 5d 233 lb 129/73 -???-???-???-???-???-??? -???-???-???-???-???-??? - 180 -???-???-???-???-???-??? -???-???-???-???-???-??? - SM- CRL 2.8 cm cons with LMP 04/01/22 -???-???-???-???-???-??? -???-???-???-???-???-??? - 14w 5d 237 lb 136/88 Negative -???-???-???-???-???-??? -???-???-???-???-???-??? - Negative 157 -???-???-???-???-???-??? -???-???-???-???-???-??? - SM- no vb cr amping 04/29/22 -???-???-???-???-???-??? -???-???-???-???-???-??? - 18w 5d 239 lb 134/82 Negative -???-???-???-???-???-??? -???-???-???-???-???-??? - Negative 156 -???-???-???-???-???-??? -???-???-???-???-???-??? - -No VB rec ently. Had in past. [facility] anatomy US maribel. Kati for nausea. 05/27/22 -???-???-???-???-???-??? -???-???-???-???-???-??? - 22w 5d 240 lb 130/84 Negative -???-???-???-???-???-??? -???-???-???-???-???-??? - Negative 152 -???-???-???-???-???-??? -???-???-???-???-???-??? - -No VB, JOSE Givens FM. Some reflux/difficulty swalloing-try pepcid 06/26/22 -???-???-???-???-???-??? -???-???-???-???-???-??? - 27w 0d 241 lb 8 oz 138/84 Negative -???-???-???-???-???-??? -???-???-???-???-???-??? - Negative 164 -???-???-???-???-???-??? -???-???-???-???-???-??? - JV- still canas ving swallowing issues. consulting GI. no lof, vaginal bleeding, or dec fm. 07/10/22 -???-???-???-???-???-??? -???-???-???-???-???-??? - 29w 0d 245 lb 8 oz 132/86 Negative -???-???-???-???-???-??? -???-???-???-???-???-??? - Negative 148 29 -???-???-???-???-???-??? -???-???-???-???-???-??? - -No Vb, LO F. Good FM. Start FE. Larc. Tdap. Is doing glucose checks QID and will call after 1 week with levels. 07/23/22 -???-???-???-???-???-??? -???-???-???-???-???-??? - 30w 6d 245 lb 146/86 146/86 Negative -???-???-???-???-???-??? -???-???-???-???-???-??? - Negative 150 31 -???-???-???-???-???-??? -???-???-???-???-???-??? - KW- +FM. No lof/vb/ctx BS under 90/120. GBS discussed. to l d for monitor ing of bp 07/26/22 -???-???-???-???-???-??? -???-???-???-???-???-??? - 31w 2d 241 lb 8 oz 134/84 Negative -???-???-???-???-???-??? -???-???-???-???-???-??? - Negative 150 -???-???-???-???-???-??? -???-???-???-???-???-??? - SM- SM- bps at home improving on 60 pr ocardia no canas bv no vb lof good fm no regular ctx 07/30/22 -???-???-???-???-???-??? -???-???-???-???-???-??? - 31w 6d 246 lb 6 oz 137/91 137/91 Negative -???-???-???-???-???-??? -???-???-???-???-???-??? - Negative 145 32 -???-???-???-???-???-??? -???-???-???-???-???-??? - KW-+FM. No h eadache, vb,lof,ctx. BPs at home 120/70s. BS under 90/ 120. no complaints-feels much better 08/05/22 -???-???-???-???-???-??? -???-???-???-???-???-??? - 32w 5d 248 lb 2 oz 124/86 -???-???-???-???-???-??? -???-???-???-???-???-??? - 130 -???-???-???-???-???-??? -???-???-???-???-???-??? - SM- nl bps a t home no canas bv no regular ctx vb lof good fm 08/08/22 -???-???-???-???-???-??? -???-???-???-???-???-??? - 33w 1d 248 lb 4 oz 130/92 130/92 Negative -???-???-???-???-???-??? -???-???-???-???-???-??? - Negative 150 -???-???-???-???-???-??? -???-???-???-???-???-??? - KW-NST only +FM, no contractions. BPs good at home. celexa refilled. 08/13/22 -???-???-???-???-???-??? -???-???-???-???-???-??? - 33w 6d 248 lb 8 oz 143/92 143/92 Negative -???-???-???-???-???-??? -???-???-???-???-???-??? - Negative 145 34 -???-???-???-???-???-??? -???-???-???-???-???-??? - KW- + FM, no ctx/vb/lof. BP ok at home. 139/86 highest at home this week, but states she had a stressful week, no concerns. ACOG First Trimester First Trimester: Second Trimester Second Trimester: Signs and Symptoms of Labor, Selecting a care provider, Reproductive Life Planning Contreception, Care Planning, Depression/Anxiety and Intimate Partner Violence; Discussed Tobacco Cessation Third Trimester Third Trimester: Pain Management Plans, Labor support person(s), Immediate Larc, Circumcision preference, Movement Monitoring, Signs and Symptoms of Preeclampsia, Infant Feeding Yes , Education and Family Medical Leave or Disability Forms; Discussed Trial of Labor after Counseling Diagnostics Diagnostics Diagnostics: Glucose 1 Hr 50 gm 176 mg/dL (70-140) H HIV 1 2 Antibody Non-Reactive (Nonreactive) Hgb 10.6 g/dL (12.0-15.0) L Hct 33.1 % (37-47) L Details: HIV: Urine Culture: Sequential Screen: NIPT Screen: ROS Const Reports system reviewed and no additional complaints, except as documented Resp Reports system reviewed and no additional complaints, except as documented GI Reports system reviewed and no additional complaints, except as documented, Denies nausea and Denies vomiting Denies dysuria, Denies urinary hesitancy and Denies urinary urgency Psych Reports system reviewed and no additional complaints, except as documented Exam Const General: cooperative, healthy appearing and no acute distress Orientation: alert, awake and oriented x3 Neck Neck: normal visual inspection Resp Effort Inspection: normal respiratory effort and able to speak in complete sentences GI Inspection: normal to inspection Palpation: soft and other Other: gravid Neuro General: patient alert, patient awake and patient oriented x3 Psych Appearance: grossly normal Mental Status: mental status grossly normal Speech and Movement: speech and movement normal Attitude: cooperative Thought Process: normal Thought Content: normal Judgment: judgment good Office Procedures Non-stress Test Non-Stress Test Indications for Monitoring: Yes hypertension Time: 15:00 Blood Pressure: 143/92 Heart Rate Baseline: 145 Heart Rate Variability: moderate Movement: Present Heart Rate Accelerations: Present Decelerations: Absent Contractions: Absent Impression: Yes Reactive Non-Stress Test Results POC Urinalysis 2 Dip (Clinic) Office Urine Glucose Negative Last Edit by Julia Patricio on 08/13/22 15:09 Office Urine Protein Negative Last Edit by Julia Patricio on 08/13/22 15:09 Coding Level of Care Code OB Routine Diagnoses Depression with anxiety F41.8 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 (3) Gestational hypertension: Status: Acute Comment: growth us, steroids 07/23 and 07/24. procardia 60XL. nl labs. plan 2x weekly nsts, weekly yuliana, and weekly labs., home bp monitoring (4) Anemia in preg-unspec: Status: Acute Comment: start Fe daily (5) Difficulty swallowing: Status: Acute Comment: consult to GI- end of august (6) Obesity affecting : Status: Acute Comment: 1 tm GCT encouraged healthy weight gain. BMI 39. abn 1 hr, normal 3 hr GTT in 1 tm. declined 3 tm gct in third trimester- normal home BS checking x 1 week in third trimester. (7) Supervision of high risk , antepartum: Status: Acute Comment: [id number], MIKE 10/05/22, Jarek (8) : Status: Acute Comment: NIPT low risk, 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 (9) Asthma: Status: Acute Comment: virus and exercise induced Orders: Orders POC Urinalysis 2 Dip (Clinic) Today OB NST Today O13.9 - Gestational [-induced] hypertension without significant proteinuria, unspecified trimester Plan Details Additional Comments: ACOG trimester education reviewed and updated. see problem list details for updated plan management information and see below for orders placed at this visit. GA appropriate handout given. 08/13/22 1534 <Electronically signed by Marcela Espana CNM> Date Marcela Espana CNM Cosigner Signature: Date (if applicable) CC: Rosanna Scales DO Work Phone: Start: 08-09-2022 Ultrasonography for antepartum monitoring of fetus Dr. Rosanna Scales Work Phone: Start: 08-09-2022 End: 08-10-2022 Procedure Note: See Note; NOTES: [facility] Imaging Services [address] [place] [address] OB Limited (No Biometrics) MR#: [id number] Acct: [id number] Name: CRISTELA SHAH Rep #: [id number] : 1995 F 26 From: Shemar Tong MD PCP: Dr. Rosanna Scales DO Status: REG CLI Study: OB Limited (No Biometrics) Date of Exam: 08/09 Exam# [id number] Ordering Dr: Do Frankel INDICATION: YULIANA EXAMINATION: US OB Limited 1 Or More Fetus TECHNIQUE: Limited transabdominal pelvic obstetric ultrasound was performed. COMPARISON: Obstetric ultrasound from 08/02/2022 FINDINGS: Single live intrauterine fetus in breech presentation with heart rate 152 bpm. Grade 2 fundal placenta appears intact with no placenta previa. Closed cervix measures 4.2 cm length. Amniotic fluid index within normal limits, 16.1 cm. Maternal adnexa not imaged. biometrics and anatomic survey not performed. EGA of 32 weeks 6 days based on prior ultrasound with MIKE of 09/28/2022. EGA of 32 weeks 3 days based on LMP of 12/25/2021. US/OB Limited (No Biometrics) IMPRESSION: Single live intrauterine with normal YULIANA and no acute abnormality. Electronically Signed: Shemar Tong MD at 4:21 EDT , CC: Dr. Rosanna Scales DO; Dr. Do Frankel MD Fuel Cell Designer: Signed Rosanna Fast DO Work Phone: Start: 08-08-2022 End: 08-11-2022 Procedure Note: See Note; NOTES: [facility] [address] [place] [address] OFFICE VISIT Date of Service: 08/08/22 MR#: [id number] Acct: [id number] Name: CRISTELA SHAH Rep #: [id number] : 1995 Provider: Dr. Do julian MD Age/Sex: 26/F [place] [facility] Status: Signed Intake Vital Signs 07/26/22 11:02 08/08/22 15:19 08/08/22 15:21 08/08/22 15:41 Height 5 ft 4 in 5 ft 4 in 5 ft 4 in Weight: 248 lb 4 oz BMI 42.6 BP 130/92 H 130/92 H Intake Visit Reasons: 33 WK NST Chief Complaint: 33 Week NST Mammalogist Required: No Is patient in pain?: No Allergies No Known Allergies Allergy (Verified 08/08/22 15:18) Medications multivitamin no.47-iron fum 27 mg-folate no.1 1 mg-dha 300 mg capsule (PNV-DHA) cap PO 02/28/22 [History Confirmed 08/08/22] ondansetron 4 mg disintegrating tablet 4 mg PO Q4H PRN nausea and vomiting #60 tabs 04/29/22 [Rx Confirmed 08/08/22] blood sugar diagnostic (Blood Glucose Test strips) #50 ea 07/05/22 [Rx Confirmed 08/08/22] blood-glucose meter #1 ea 07/05/22 [Rx Confirmed 08/08/22] lancets #100 ea 07/05/22 [Rx Confirmed 08/08/22] nifedipine 60 mg tablet,extended release 24 hr (Procardia XL) 60 mg PO DAILY #60 tabs 08/07/22 [Rx Confirmed 08/08/22] citalopram 20 mg tablet (Celexa) 20 mg PO DAILY #30 tabs 08/08/22 [Rx Confirmed 08/08/22] Last Menstrual Period: 12/19/21 Zika: Zika virus screening: Negative : No PFSH PFSH Medical History Abnormality of hormone Depression Family History Father Hypertension Other Colon cancer Diabetes Heart disease Social History adopted: No household members: spouse housing: house current occupational status: employed current occupation: [employer] pets and animals: Yes pets and animals: dog(s) history of recent travel: No Smoking Status: Never smoker alcohol intake: former details: social not while substance use type: does not use well-balanced diet: daily or most days caffeine: No eating out: 4 or more times/week during the past year weight has: decreased > 10 lbs deloris/gnosticist: Restoration seatbelt use: always do you feel safe at home: Yes 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 OB Visit MIKE Calculator Estimated Delivery Date Method Current WG Current Estimate 09/25/22 LMP (Certain) 33w 4d Expected Delivery Route/Plan Labor Preferences- CB/BF classes: encouraged labor support person: manjinder Temple labor intervention preferences: none pain management options preferred: epidural cut cord/dad catch: cord : yes PP control planned: discussed discussed possible routes of delivery and associated risks: [] special requests: [] Specific Issue/Plans Covid status: discussed Flu vaccine: discussed Tdap vaccine: given Rhogam: na LARC form signed: yes movement and labor precautions reviewed. Problem list reviewed and updated with the most current plan of care details and appropriate orders placed. Relevant counseling for the gestational age provided. Continue routine care and follow up unless otherwise noted in visit notes/problem list details Initial Weight: Not Recorded Date -???-???-???-???-???-??? -???-???-???-???-???-??? - EGA Weight BP Urine Prot -???-???-???-???-???-??? -???-???-???-???-???-??? - Glucose FHR FuHt Pres Dilation -???-???-???-???-???-??? -???-???-???-???-???-??? - Effaced St Visit Note 03/04/22 -???-???-???-???-???-??? -???-???-???-???-???-??? - 10w 5d 233 lb 129/73 -???-???-???-???-???-??? -???-???-???-???-???-??? - 180 -???-???-???-???-???-??? -???-???-???-???-???-??? - SM- CRL 2.8 cm cons with LMP 04/01/22 -???-???-???-???-???-??? -???-???-???-???-???-??? - 14w 5d 237 lb 136/88 Negative -???-???-???-???-???-??? -???-???-???-???-???-??? - Negative 157 -???-???-???-???-???-??? -???-???-???-???-???-??? - SM- no vb cr amping 04/29/22 -???-???-???-???-???-??? -???-???-???-???-???-??? - 18w 5d 239 lb 134/82 Negative -???-???-???-???-???-??? -???-???-???-???-???-??? - Negative 156 -???-???-???-???-???-??? -???-???-???-???-???-??? - -No VB rec ently. Had in past. [facility] anatomy US ordered. Kati for nausea. 05/27/22 -???-???-???-???-???-??? -???-???-???-???-???-??? - 22w 5d 240 lb 130/84 Negative -???-???-???-???-???-??? -???-???-???-???-???-??? - Negative 152 -???-???-???-???-???-??? -???-???-???-???-???-??? - -No VB, LO F. Good FM. Some reflux/difficulty swalloing-try pepcid 06/26/22 -???-???-???-???-???-??? -???-???-???-???-???-??? - 27w 0d 241 lb 8 oz 138/84 Negative -???-???-???-???-???-??? -???-???-???-???-???-??? - Negative 164 -???-???-???-???-???-??? -???-???-???-???-???-??? - AVIS- scott patelg swallowing issues. consulting GI. no lof, vaginal bleeding, or dec fm. 07/10/22 -???-???-???-???-???-??? -???-???-???-???-???-??? - 29w 0d 245 lb 8 oz 132/86 Negative -???-???-???-???-???-??? -???-???-???-???-???-??? - Negative 148 29 -???-???-???-???-???-??? -???-???-???-???-???-??? - -No Vb, LO F. Good FM. Start FE. Larc. Tdap. Is doing glucose checks QID and will call after 1 week with levels. 07/23/22 -???-???-???-???-???-??? -???-???-???-???-???-??? - 30w 6d 245 lb 146/86 146/86 Negative -???-???-???-???-???-??? -???-???-???-???-???-??? - Negative 150 31 -???-???-???-???-???-??? -???-???-???-???-???-??? - KW- +FM. No lof/vb/ctx BS under 90/120. GBS discussed. to l d for monitor ing of bp 07/26/22 -???-???-???-???-???-??? -???-???-???-???-???-??? - 31w 2d 241 lb 8 oz 134/84 Negative -???-???-???-???-???-??? -???-???-???-???-???-??? - Negative 150 -???-???-???-???-???-??? -???-???-???-???-???-??? - SM- SM- bps at home improving on 60 pr ocardia no canas bv no vb lof good fm no regular ctx 07/30/22 -???-???-???-???-???-??? -???-???-???-???-???-??? - 31w 6d 246 lb 6 oz 137/91 137/91 Negative -???-???-???-???-???-??? -???-???-???-???-???-??? - Negative 145 32 -???-???-???-???-???-??? -???-???-???-???-???-??? - KW-+FM. No h eadache, vb,lof,ctx. BPs at home 120/70s. BS under 90/ 120. no complaints-feels much better 08/05/22 -???-???-???-???-???-??? -???-???-???-???-???-??? - 32w 5d 248 lb 2 oz 124/86 -???-???-???-???-???-??? -???-???-???-???-???-??? - 130 -???-???-???-???-???-??? -???-???-???-???-???-??? - SM- nl bps a t home no canas bv no regular ctx vb lof good fm 08/08/22 -???-???-???-???-???-??? -???-???-???-???-???-??? - 33w 1d 248 lb 4 oz 130/92 130/92 Negative -???-???-???-???-???-??? -???-???-???-???-???-??? - Negative 150 -???-???-???-???-???-??? -???-???-???-???-???-??? - KW-NST only +FM, no contractions. BPs good at home. celexa refilled. ACOG First Trimester First Trimester: Second Trimester Second Trimester: Signs and Symptoms of Labor, Selecting a care provider, Reproductive Life Planning Contreception, Care Planning, Depression/Anxiety and Intimate Partner Violence; Discussed Tobacco Cessation Third Trimester Third Trimester: Pain Management Plans, Labor support person(s), Immediate Larc, Circumcision preference, Movement Monitoring, Signs and Symptoms of Preeclampsia, Infant Feeding Yes , Education and Family Medical Leave or Disability Forms; Discussed Trial of Labor after Counseling Diagnostics Diagnostics Diagnostics: Glucose 1 Hr 50 gm 176 mg/dL (70-140) H HIV 1 2 Antibody Non-Reactive (Nonreactive) Hgb 10.6 g/dL (12.0-15.0) L Hct 33.1 % (37-47) L Details: HIV: Urine Culture: Sequential Screen: NIPT Screen: Office Procedures Non-stress Test Non-Stress Test Indications for Monitoring: Yes hypertension Time: 15:00 Blood Pressure: 130/92 Heart Rate Baseline: 150 Heart Rate Variability: moderate Movement: Present Heart Rate Accelerations: Present Decelerations: Absent Contractions: Absent Impression: Yes Reactive Non-Stress Test Results POC Urinalysis 2 Dip (Clinic) Office Urine Glucose Negative Last Edit by Cande Rogers on 08/08/22 15:22 Office Urine Protein Negative Last Edit by Cande Rogers on 08/08/22 15:22 Coding Level of Care Code OB Routine Diagnoses 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 Z14.8 Gestational hypertension O13.9 Anemia in preg-unspec O99.019 Difficulty swallowing R13.10 Obesity affecting O99.210 Supervision of high risk , antepartum O09.90 Z3A.33 Weeks of gestation: 33 weeks Asthma J45.909 Depression with anxiety F41.8 CPT Codes Non-Stress Test (72389) Assessment and Plan Assessment and Plan (1) 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 (2) Gestational hypertension: Status: Acute Comment: growth us, steroids 07/23 and 4. procardia 60XL. nl labs. plan 2x weekly nsts, weekly yuliana, and weekly labs., home bp monitoring (3) Anemia in preg-unspec: Status: Acute Comment: start Fe daily (4) Difficulty swallowing: Status: Acute Comment: consult to GI- end of august (5) Obesity affecting : Status: Acute Comment: 1 tm GCT encouraged healthy weight gain. BMI 39. abn 1 hr, normal 3 hr GTT in 1 tm. declined 3 tm gct in third trimester- normal home BS checking x 1 week in third trimester. (6) Supervision of high risk , antepartum: Status: Acute Comment: [id number], MIKE 10/05/22, Jarek (7) : Status: Acute Qualifiers: Weeks of gestation: 33 weeks Qualified Code(s): Z3A.33 - 33 weeks gestation of Comment: NIPT low risk, 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 (8) Asthma: Status: Acute Comment: virus and exercise induced (9) Depression with anxiety: Status: Acute Orders: Orders OB NST 08/08/22 O99.210 - Obesity complicating , unspecified trimester Dr. Do Frankel MD POC Urinalysis 2 Dip (Clinic) 08/08/22 Dr. Do Frankel MD Medications: New citalopram (Celexa) 20 mg PO DAILY 30 tabs 12RF F41.8 - Other specified anxiety disorders Marcela Epsana CNM 08/11/22 5617 <Electronically signed by Do Frankel MD> Date Do Frankel MD 08/08/22 1547<Electronically signed by Marcela Espana CNM> Cosigner Signature: Date (if applicable) Marcela Espana CNM CC: Rosanna Scales DO Work Phone: Start: 08-05-2022 End: 08-05-2022 Procedure Note: See Note; NOTES: [facility] [address] [place] [address] OFFICE VISIT Date of Service: 08/05/22 MR#: [id number] Acct: [id number] Name: CRISTELA SHAH Rep #: [id number] : 1995 Provider: Dr. Do julian MD Age/Sex: 26/F [facility] [facility]: Signed Intake Vital Signs 07/26/22 10:10 07/26/22 11:02 08/05/22 16:02 08/05/22 16:05 Height 5 ft 4 in 5 ft 4 in 5 ft 4 in 5 ft 4 in Weight: 248 lb 2 oz BMI 42.5 BP 124/86 H Intake Visit Reasons: 33 WK OB/NST Mammalogist Required: No Is patient in pain?: No Allergies No Known Allergies Allergy (Verified 08/05/22 16:03) Medications citalopram 20 mg tablet (Celexa) 20 mg PO DAILY 02/28/22 [History Confirmed 08/05/22] multivitamin no.47-iron fum 27 mg-folate no.1 1 mg-dha 300 mg capsule (PNV-DHA) cap PO 02/28/22 [History Confirmed 08/05/22] ondansetron 4 mg disintegrating tablet 4 mg PO Q4H PRN nausea and vomiting #60 tabs 04/29/22 [Rx Confirmed 08/05/22] blood sugar diagnostic (Blood Glucose Test strips) #50 ea 07/05/22 [Rx Confirmed 08/05/22] blood-glucose meter #1 ea 07/05/22 [Rx Confirmed 08/05/22] lancets #100 ea 07/05/22 [Rx Confirmed 08/05/22] nifedipine 30 mg tablet,extended release 24 hr (Procardia XL) 30 mg PO DAILY #30 tabs 07/23/22 [Rx Confirmed 08/05/22] Last Menstrual Period: 12/19/21 Zika: Zika virus screening: Negative : No PFSH PFSH Medical History Abnormality of hormone Depression Family History Father Hypertension Other Colon cancer Diabetes Heart disease Social History adopted: No household members: spouse housing: house current occupational status: employed current occupation: [employer] pets and animals: Yes pets and animals: dog(s) history of recent travel: No Smoking Status: Never smoker alcohol intake: former details: social not while substance use type: does not use well-balanced diet: daily or most days caffeine: No eating out: 4 or more times/week during the past year weight has: decreased > 10 lbs deloris/gnosticist: Restoration seatbelt use: always do you feel safe at home: Yes 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 OB Visit MIKE Calculator Estimated Delivery Date Method Current WG Current Estimate 09/25/22 LMP (Certain) 32w 5d Expected Delivery Route/Plan Labor Preferences- CB/BF classes: encouraged labor support person: manjinder Temple labor intervention preferences: none pain management options preferred: epidural cut cord/dad catch: cord : yes PP control planned: discussed discussed possible routes of delivery and associated risks: [] special requests: [] Specific Issue/Plans Covid status: discussed Flu vaccine: discussed Tdap vaccine: given Rhogam: na LARC form signed: yes movement and labor precautions reviewed. Problem list reviewed and updated with the most current plan of care details and appropriate orders placed. Relevant counseling for the gestational age provided. Continue routine care and follow up unless otherwise noted in visit notes/problem list details Initial Weight: Not Recorded Date -???-???-???-???-???-??? -???-???-???-???-???-??? - EGA Weight BP Urine Prot -???-???-???-???-???-??? -???-???-???-???-???-??? - Glucose FHR FuHt Pres Dilation -???-???-???-???-???-??? -???-???-???-???-???-??? - Effaced St Visit Note 03/04/22 -???-???-???-???-???-??? -???-???-???-???-???-??? - 10w 5d 233 lb 129/73 -???-???-???-???-???-??? -???-???-???-???-???-??? - 180 -???-???-???-???-???-??? -???-???-???-???-???-??? - SM- CRL 2.8 cm cons with LMP 04/01/22 -???-???-???-???-???-??? -???-???-???-???-???-??? - 14w 5d 237 lb 136/88 Negative -???-???-???-???-???-??? -???-???-???-???-???-??? - Negative 157 -???-???-???-???-???-??? -???-???-???-???-???-??? - - no vb cr amping 04/29/22 -???-???-???-???-???-??? -???-???-???-???-???-??? - 18w 5d 239 lb 134/82 Negative -???-???-???-???-???-??? -???-???-???-???-???-??? - Negative 156 -???-???-???-???-???-??? -???-???-???-???-???-??? - -No VB rec ently. Had in past. [facility] anatomy US maribel. Kati for nausea. 05/27/22 -???-???-???-???-???-??? -???-???-???-???-???-??? - 22w 5d 240 lb 130/84 Negative -???-???-???-???-???-??? -???-???-???-???-???-??? - Negative 152 -???-???-???-???-???-??? -???-???-???-???-???-??? - -No VB, JOSE ALCALA. Some reflux/difficulty swalloing-try pepcid 06/26/22 -???-???-???-???-???-??? -???-???-???-???-???-??? - 27w 0d 241 lb 8 oz 138/84 Negative -???-???-???-???-???-??? -???-???-???-???-???-??? - Negative 164 -???-???-???-???-???-??? -???-???-???-???-???-??? - JV- still canas ving swallowing issues. consulting GI. no lof, vaginal bleeding, or dec fm. 07/10/22 -???-???-???-???-???-??? -???-???-???-???-???-??? - 29w 0d 245 lb 8 oz 132/86 Negative -???-???-???-???-???-??? -???-???-???-???-???-??? - Negative 148 29 -???-???-???-???-???-??? -???-???-???-???-???-??? - -No Vb, LO F. Good FM. Start FE. Larc. Tdap. Is doing glucose checks QID and will call after 1 week with levels. 07/23/22 -???-???-???-???-???-??? -???-???-???-???-???-??? - 30w 6d 245 lb 146/86 146/86 Negative -???-???-???-???-???-??? -???-???-???-???-???-??? - Negative 150 31 -???-???-???-???-???-??? -???-???-???-???-???-??? - - +FM. No lof/vb/ctx BS under 90/120. GBS discussed. to l d for monitor ing of bp 07/26/22 -???-???-???-???-???-??? -???-???-???-???-???-??? - 31w 2d 241 lb 8 oz 134/84 Negative -???-???-???-???-???-??? -???-???-???-???-???-??? - Negative 150 -???-???-???-???-???-??? -???-???-???-???-???-??? - SM- SM- bps at home improving on 60 pr ocardia no canas bv no vb lof good fm no regular ctx 07/30/22 -???-???-???-???-???-??? -???-???-???-???-???-??? - 31w 6d 246 lb 6 oz 137/91 137/91 Negative -???-???-???-???-???-??? -???-???-???-???-???-??? - Negative 145 32 -???-???-???-???-???-??? -???-???-???-???-???-??? - KW-+FM. No h eadache, vb,lof,ctx. BPs at home 120/70s. BS under 90/ 120. no complaints-feels much better 08/05/22 -???-???-???-???-???-??? -???-???-???-???-???-??? - 32w 5d 248 lb 2 oz 124/86 -???-???-???-???-???-??? -???-???-???-???-???-??? - 130 -???-???-???-???-???-??? -???-???-???-???-???-??? - SM- nl bps a t home no canas bv no regular ctx vb lof good fm ACOG First Trimester First Trimester: Second Trimester Second Trimester: Signs and Symptoms of Labor, Selecting a care provider, Reproductive Life Planning Contreception, Care Planning, Depression/Anxiety and Intimate Partner Violence; Discussed Tobacco Cessation Third Trimester Third Trimester: Pain Management Plans, Labor support person(s), Immediate Larc, Circumcision preference, Movement Monitoring, Signs and Symptoms of Preeclampsia, Infant Feeding Yes , [place] Education and Family Medical Leave or Disability Forms; Discussed Trial of Labor after Counseling Diagnostics Diagnostics Diagnostics: Glucose 1 Hr 50 gm 176 mg/dL (70-140) H HIV 1 2 Antibody Non-Reactive (Nonreactive) Hgb 10.4 g/dL (12.0-15.0) L Hct 31.9 % (37-47) L Details: HIV: Urine Culture: Sequential Screen: NIPT Screen: Office Procedures Non-stress Test Non-Stress Test Indications for Monitoring: Yes Preeclampsia Heart Rate Baseline: 130 Heart Rate Variability: moderate Movement: Present Heart Rate Accelerations: Present Decelerations: Absent Contractions: Absent Impression: Yes Reactive Non-Stress Test Category 1 Coding Level of Care Code OB Routine Diagnoses Gestational hypertension O13.9 Anemia in preg-unspec O99.019 Difficulty swallowing R13.10 Obesity affecting O99.210 Supervision of high risk , antepartum O09.90 Z3A.32 Weeks of gestation: 32 weeks Asthma J45.909 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 Z14.8 CPT Codes Non-Stress Test (63186) Assessment and Plan Assessment and Plan (1) Gestational hypertension: Status: Acute Comment: growth us, steroids 4/4 and 4/5. procardia 60XL. nl labs. plan 2x weekly nsts, weekly yuliana, and weekly labs., home bp monitoring (2) Anemia in preg-unspec: Status: Acute Comment: start Fe daily (3) Difficulty swallowing: Status: Acute Comment: consult to GI- end of august (4) Obesity affecting : Status: Acute Comment: 1 tm GCT encouraged healthy weight gain. BMI 39. abn 1 hr, normal 3 hr GTT in 1 tm. declined 3 tm gct in third trimester- normal home BS checking x 1 week in third trimester. (5) Supervision of high risk , antepartum: Status: Acute Comment: [id number], MIKE 10/05/22, Jarek (6) : Status: Acute Qualifiers: Weeks of gestation: 32 weeks Qualified Code(s): Z3A.32 - 32 weeks gestation of Comment: NIPT low risk, 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 (7) Asthma: Status: Acute Comment: virus and exercise induced (8) 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 Orders: Orders POC Urinalysis 2 Dip (Clinic) Today OB NST Today O13.9 - Gestational [-induced] hypertension without significant proteinuria, unspecified trimester 08/05/22 1641 <Electronically signed by Do Frankel MD> Date Do rFankel MD Cosigner Signature: Date (if applicable) CC: Rosanna Scales DO Work Phone: Start: 08-02-2022 End: 08-05-2022 Procedure Note: See Note; NOTES: [facility] [address] [place] [address] OFFICE VISIT Date of Service: 08/02/22 MR#: [id number] Acct: [id number] Name: CRISTELA SHAH Rep #: [id number] : 1995 Provider: Dr. Do julian MD Age/Sex: 26/F [facility] Status: Signed Intake Vital Signs 07/26/22 10:10 07/30/22 15:02 08/02/22 10:39 08/02/22 10:40 08/02/22 11:13 Height 5 ft 4 in 5 ft 4 in 5 ft 4 in Weight: 244 lb 6 oz BP 149/97 H 139/83 H Intake Visit Reasons: 32 WK NST Mammalogist Required: No Is patient in pain?: No Allergies No Known Allergies Allergy (Verified 08/05/22 16:03) Medications citalopram 20 mg tablet (Celexa) 20 mg PO DAILY 02/28/22 [History Confirmed 08/05/22] multivitamin no.47-iron fum 27 mg-folate no.1 1 mg-dha 300 mg capsule (PNV-DHA) cap PO 02/28/22 [History Confirmed 08/05/22] ondansetron 4 mg disintegrating tablet 4 mg PO Q4H PRN nausea and vomiting #60 tabs 04/29/22 [Rx Confirmed 08/05/22] blood sugar diagnostic (Blood Glucose Test strips) #50 ea 07/05/22 [Rx Confirmed 08/05/22] blood-glucose meter #1 ea 07/05/22 [Rx Confirmed 08/05/22] lancets #100 ea 07/05/22 [Rx Confirmed 08/05/22] nifedipine 30 mg tablet,extended release 24 hr (Procardia XL) 30 mg PO DAILY #30 tabs 07/23/22 [Rx Confirmed 08/05/22] Last Menstrual Period: 12/19/21 Zika: Zika virus screening: Negative : No PFSH PFSH Medical History Abnormality of hormone Depression Family History Father Hypertension Other Colon cancer Diabetes Heart disease Social History adopted: No household members: spouse housing: house current occupational status: employed current occupation: [employer] pets and animals: Yes pets and animals: dog(s) history of recent travel: No Smoking Status: Never smoker alcohol intake: former details: social not while substance use type: does not use well-balanced diet: daily or most days caffeine: No eating out: 4 or more times/week during the past year weight has: decreased > 10 lbs deloris/gnosticist: Restoration seatbelt use: always do you feel safe at home: Yes 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 OB Visit MIKE Calculator Estimated Delivery Date Method Current WG Current Estimate 09/25/22 LMP (Certain) 32w 5d Expected Delivery Route/Plan Labor Preferences- CB/BF classes: encouraged labor support person: manjinder Temple and Amber labor intervention preferences: none pain management options preferred: epidural cut cord/dad catch: cord : yes PP control planned: discussed discussed possible routes of delivery and associated risks: [] special requests: [] Specific Issue/Plans Covid status: discussed Flu vaccine: discussed Tdap vaccine: given Rhogam: na LARC form signed: yes movement and labor precautions reviewed. Problem list reviewed and updated with the most current plan of care details and appropriate orders placed. Relevant counseling for the gestational age provided. Continue routine care and follow up unless otherwise noted in visit notes/problem list details Initial Weight: Not Recorded Date -???-???-???-???-???-??? -???-???-???-???-???-??? - EGA Weight BP Urine Prot -???-???-???-???-???-??? -???-???-???-???-???-??? - Glucose FHR FuHt Pres Dilation -???-???-???-???-???-??? -???-???-???-???-???-??? - Effaced St Visit Note 03/04/22 -???-???-???-???-???-??? -???-???-???-???-???-??? - 10w 5d 233 lb 129/73 -???-???-???-???-???-??? -???-???-???-???-???-??? - 180 -???-???-???-???-???-??? -???-???-???-???-???-??? - SM- CRL 2.8 cm cons with LMP 04/01/22 -???-???-???-???-???-??? -???-???-???-???-???-??? - 14w 5d 237 lb 136/88 Negative -???-???-???-???-???-??? -???-???-???-???-???-??? - Negative 157 -???-???-???-???-???-??? -???-???-???-???-???-??? - SM- no vb cr amping 04/29/22 -???-???-???-???-???-??? -???-???-???-???-???-??? - 18w 5d 239 lb 134/82 Negative -???-???-???-???-???-??? -???-???-???-???-???-??? - Negative 156 -???-???-???-???-???-??? -???-???-???-???-???-??? - -No VB rec ently. Had in past. [facility] anatomy US ordered. Zofran for nausea. 05/27/22 -???-???-???-???-???-??? -???-???-???-???-???-??? - 22w 5d 240 lb 130/84 Negative -???-???-???-???-???-??? -???-???-???-???-???-??? - Negative 152 -???-???-???-???-???-??? -???-???-???-???-???-??? - -No VB, LO F. Good FM. Some reflux/difficulty swalloing-try pepcid 06/26/22 -???-???-???-???-???-??? -???-???-???-???-???-??? - 27w 0d 241 lb 8 oz 138/84 Negative -???-???-???-???-???-??? -???-???-???-???-???-??? - Negative 164 -???-???-???-???-???-??? -???-???-???-???-???-??? - JV- still canas ving swallowing issues. consulting GI. no lof, vaginal bleeding, or dec fm. 07/10/22 -???-???-???-???-???-??? -???-???-???-???-???-??? - 29w 0d 245 lb 8 oz 132/86 Negative -???-???-???-???-???-??? -???-???-???-???-???-??? - Negative 148 29 -???-???-???-???-???-??? -???-???-???-???-???-??? - -No Vb, LO F. Good FM. Start FE. Dara. Tdap. Is doing glucose checks QID and will call after 1 week with levels. 07/23/22 -???-???-???-???-???-??? -???-???-???-???-???-??? - 30w 6d 245 lb 146/86 146/86 Negative -???-???-???-???-???-??? -???-???-???-???-???-??? - Negative 150 31 -???-???-???-???-???-??? -???-???-???-???-???-??? - KW- +FM. No lof/vb/ctx BS under 90/120. GBS discussed. to l d for monitor ing of bp 07/26/22 -???-???-???-???-???-??? -???-???-???-???-???-??? - 31w 2d 241 lb 8 oz 134/84 Negative -???-???-???-???-???-??? -???-???-???-???-???-??? - Negative 150 -???-???-???-???-???-??? -???-???-???-???-???-??? - SM- SM- bps at home improving on 60 pr ocardia no canas bv no vb lof good fm no regular ctx 07/30/22 -???-???-???-???-???-??? -???-???-???-???-???-??? - 31w 6d 246 lb 6 oz 137/91 137/91 Negative -???-???-???-???-???-??? -???-???-???-???-???-??? - Negative 145 32 -???-???-???-???-???-??? -???-???-???-???-???-??? - KW-+FM. No h monique, robel,josef,ctx. BPs at home 120/70s. BS under 90/ 120. no complaints-feels much better 08/02/22 -???-???-???-???-???-??? -???-???-???-???-???-??? - 32w 2d 244 lb 6 oz 149/97 139/83 Negative -???-???-???-???-???-??? -???-???-???-???-???-??? - Negative -???-???-???-???-???-??? -???-???-???-???-???-??? - 08/05/22 -???-???-???-???-???-??? -???-???-???-???-???-??? - 32w 5d 248 lb 2 oz 124/86 -???-???-???-???-???-??? -???-???-???-???-???-??? - 130 -???-???-???-???-???-??? -???-???-???-???-???-??? - SM- nl bps a t home no canas bv no regular ctx vb lof good fm ACOG First Trimester First Trimester: Second Trimester Second Trimester: Signs and Symptoms of Labor, Selecting a care provider, Reproductive Life Planning Contreception, Care Planning, Depression/Anxiety and Intimate Partner Violence; Discussed Tobacco Cessation Third Trimester Third Trimester: Pain Management Plans, Labor support person(s), Immediate Larc, Circumcision preference, Movement Monitoring, Signs and Symptoms of Preeclampsia, Feeding Yes , [place] Education and Family Medical Leave or Disability Forms; Discussed Trial of Labor after Counseling Diagnostics Diagnostics Diagnostics: Glucose 1 Hr 50 gm 176 mg/dL (70-140) H HIV 1 2 Antibody Non-Reactive (Nonreactive) Hgb 10.6 g/dL (12.0-15.0) L Hct 33.1 % (37-47) L Details: HIV: Urine Culture: Sequential Screen: NIPT Screen: Office Procedures Non-stress Test Non-Stress Test Indications for Monitoring: Yes diabetes and Yes hypertension Time: 10:30 Blood Pressure: 139/83 Heart Rate Baseline: 145 Heart Rate Variability: moderate Movement: Present Heart Rate Accelerations: Present Decelerations: Absent Contractions: Absent Impression: Yes Reactive Non-Stress Test Results POC Urinalysis 2 Dip (Clinic) Office Urine Glucose Negative Last Edit by Temitope Paz on 08/02/22 10:42 Office Urine Protein Negative Last Edit by Temitope Paz on 08/02/22 10:42 Coding Level of Care Code OB Routine Diagnoses Gestational hypertension O13.9 Anemia in preg-unspec O99.019 Difficulty swallowing R13.10 Obesity affecting O99.210 Supervision of high risk , antepartum O09.90 Z3A.31 Weeks of gestation: 31 weeks Asthma J45.909 Seasonal allergies J30.2 Infertility Spotting N92.0 Fibroid uterus D25.9 CPT Codes Non-Stress Test (17162) Assessment and Plan Assessment and Plan (1) Gestational hypertension: Status: Acute Comment: growth us, steroids 4/4 and 4/5. procardia 60XL. nl labs. plan 2x weekly nsts, weekly yuliana, and weekly labs., home bp monitoring (2) Anemia in preg-unspec: Status: Acute Comment: start Fe daily (3) Difficulty swallowing: Status: Acute Comment: consult to GI- end of august (4) Obesity affecting : Status: Acute Comment: 1 tm GCT encouraged healthy weight gain. BMI 39. abn 1 hr, normal 3 hr GTT in 1 tm. declined 3 tm gct in third trimester- normal home BS checking x 1 week in third trimester. (5) Supervision of high risk , antepartum: Status: Acute Comment: [id number], MIKE 10/05/22, Jarek (6) : Status: Acute Qualifiers: Weeks of gestation: 31 weeks Qualified Code(s): Z3A.31 - 31 weeks gestation of Comment: NIPT low risk, 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 (7) Asthma: Status: Acute Comment: virus and exercise induced (8) Seasonal allergies: Status: Resolved Comment: fall/spring (9) Infertility: Status: Resolved Comment: 3 years to conceive (10) Spotting: Status: Resolved (11) Fibroid uterus: Status: Resolved Comment: fibroids doubled in size in 5 years now 2 that are 2 cm. plan for HSG as pt wants to attempt . Orders: Orders OB NST 08/02/22 O09.90 - Supervision of high risk , unspecified, unspecified trimester POC Urinalysis 2 Dip (Clinic) 08/02/22 08/05/222123 <Electronically signed by oD Frankel MD> Date Do Frankel MD 08/02/22 1113<Electronically signed by Marcela Espana CNM> Cosigner Signature: Date (if applicable) Marcela Espana CNM CC: Rosanna Scales DO Work Phone: Start: 08-02-2022 Ultrasonography for antepartum monitoring of fetus Dr. Rosanna Scales Work Phone: Start: 08-02-2022 End: 08-02-2022 Procedure Note: See Note; NOTES: [facility] Imaging Services [address] [place] [address] OB Limited (No Biometrics) MR#: [id number] Acct: [id number] Name: CRISTELA SHAH Rep #: [id number] : 1995 F 26 From: Wilber Lovett MD PCP: Dr. Rosanna Scales, DO Status: REG CLI Study: OB Limited (No Biometrics) Date of Exam: 08/02 Exam# [id number] Ordering Dr: Do Frankel STUDY: SECOND AND THIRD TRIMESTER OBSTETRICAL ULTRASOUND - LIMITED REASON FOR EXAM: Female, 26 years old YULIANA -- weekly beginning week of 07/30. LMP: 12/25/2021 PRIOR ULTRASOUND: 07/23/2022 TECHNIQUE: Transabdominal TECHNICAL QUALITY: Adequate. FINDINGS: There is a single intrauterine fetus. The fetus is in a transverse lie with the head on the maternal right side. There is demonstrated cardiac activity with a heart rate of 147 bpm. There is a normal amniotic fluid volume. The largest amniotic fluid pocket measures 5.64 cm. The amniotic fluid index (YULIANA) is 15.3 cm. On the previous study, largest pocket measured 4.07 cm and YULIANA measures 15.11 cm. The placenta is posterior/fundal, not low-lying There are Grade 1 placental changes. The cervix was not measured age by prior US: 31 weeks, 6 days. MIKE by prior US: 09/28/2022. age by current US: 31 weeks, 3 days. MIKE by current US: 10/01/2022. US/OB Limited (No Biometrics) IMPRESSION: Single live intrauterine at 31 weeks 3 days by current ultrasound with MIKE of 10/01/2022. Heart rate 147 bpm. On current study, largest pocket of fluid measures 5.64 cm with a total YULIANA of 15.3 cm. Electronically Signed: Rico Lovett MD at 8:49 EDT Reading Location ID and State: [address] [place] [address] , Service support , CC: Dr. Rosanna Scales DO; Dr. Do Frankel MD Fuel Cell Designer: Signed Rosanna Scales DO Work Phone: Start: 07-30-2022 End: 07-31-2022 Procedure Note: See Note; NOTES: [facility]'s [address] [place] [address] OFFICE VISIT Date of Service: 07/30/22 MR#: [id number] Acct: [id number] Name: CRISTELA SHAH Rep #: [id number] : 1995 Provider: AL Castaneda ams Age/Sex: 26/F [facility] [facility] Status: Signed Intake Vital Signs 07/26/22 11:07 07/30/22 14:58 07/30/22 15:02 Height 5 ft 4 in 5 ft 4 in 5 ft 4 in Weight: 246 lb 6 oz BMI 42.3 BP 137/91 H Intake Visit Reasons: 32 WK OB/NST Mammalogist Required: No Is patient in pain?: No Allergies No Known Allergies Allergy (Verified 07/30/22 14:59) Medications citalopram 20 mg tablet (Celexa) 20 mg PO DAILY 02/28/22 [History Confirmed 07/30/22] multivitamin no.47-iron fum 27 mg-folate no.1 1 mg-dha 300 mg capsule (PNV-DHA) cap PO 02/28/22 [History Confirmed 07/30/22] ondansetron 4 mg disintegrating tablet 4 mg PO Q4H PRN nausea and vomiting #60 tabs 04/29/22 [Rx Confirmed 07/30/22] blood sugar diagnostic (Blood Glucose Test strips) #50 ea 07/05/22 [Rx Confirmed 07/30/22] blood-glucose meter #1 ea 07/05/22 [Rx Confirmed 07/30/22] lancets #100 ea 07/05/22 [Rx Confirmed 07/30/22] nifedipine 30 mg tablet,extended release 24 hr (Procardia XL) 30 mg PO DAILY #30 tabs 07/23/22 [Rx Confirmed 07/30/22] Last Menstrual Period: 12/19/21 Zika: Zika virus screening: Negative : No PFSH PFSH Medical History Abnormality of hormone Depression Family History Father Hypertension Other Colon cancer Diabetes Heart disease Social History adopted: No household members: spouse housing: house current occupational status: employed current occupation: [employer] pets and animals: Yes pets and animals: dog(s) history of recent travel: No Smoking Status: Never smoker alcohol intake: former details: social not while substance use type: does not use well-balanced diet: daily or most days caffeine: No eating out: 4 or more times/week during the past year weight has: decreased > 10 lbs deloris/gnosticist: Restoration seatbelt use: always do you feel safe at home: Yes 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 OB Visit MIKE Calculator Estimated Delivery Date Method Current WG Current Estimate 09/25/22 LMP (Certain) 31w 6d Expected Delivery Route/Plan Labor Preferences- CB/BF classes: encouraged labor support person: Jarek labor intervention preferences: [] pain management options preferred: epidural cut cord/dad catch: cord : yes PP control planned: discussed discussed possible routes of delivery and associated risks: [] special requests: [] Specific Issue/Plans Covid status: discussed Flu vaccine: discussed Tdap vaccine: given Rhogam: na LARC form signed: yes Problem list reviewed and updated with the most current plan of care details and appropriate orders placed. Relevant counseling for the gestational age provided. Continue routine care and follow up unless otherwise noted in visit notes/problem list details Initial Weight: Not Recorded Date -???-???-???-???-???-??? -???-???-???-???-???-??? - EGA Weight BP Urine Prot -???-???-???-???-???-??? -???-???-???-???-???-??? - Glucose FHR FuHt Pres Dilation -???-???-???-???-???-??? -???-???-???-???-???-??? - Effaced St Visit Note 03/04/22 -???-???-???-???-???-??? -???-???-???-???-???-??? - 10w 5d 233 lb 129/73 -???-???-???-???-???-??? -???-???-???-???-???-??? - 180 -???-???-???-???-???-??? -???-???-???-???-???-??? - SM- CRL 2.8 cm cons with LMP 04/01/22 -???-???-???-???-???-??? -???-???-???-???-???-??? - 14w 5d 237 lb 136/88 -???-???-???-???-???-??? -???-???-???-???-???-??? - 157 -???-???-???-???-???-??? -???-???-???-???-???-??? - SM- no vb cr amping 04/29/22 -???-???-???-???-???-??? -???-???-???-???-???-??? - 18w 5d 239 lb 134/82 Negative -???-???-???-???-???-??? -???-???-???-???-???-??? - Negative 156 -???-???-???-???-???-??? -???-???-???-???-???-??? - -No VB rec ently. Had in past. [facility] anatomy ordered. Kati for nausea. 05/27/22 -???-???-???-???-???-??? -???-???-???-???-???-??? - 22w 5d 240 lb 130/84 Negative -???-???-???-???-???-??? -???-???-???-???-???-??? - Negative 152 -???-???-???-???-???-??? -???-???-???-???-???-??? - -No VB, JOSE Givens FM. Some reflux/difficulty swalloing-try pepcid 06/26/22 -???-???-???-???-???-??? -???-???-???-???-???-??? - 27w 0d 241 lb 8 oz 138/84 Negative -???-???-???-???-???-??? -???-???-???-???-???-??? - Negative 164 -???-???-???-???-???-??? -???-???-???-???-???-??? - JV- still canas ving swallowing issues. consulting GI. no lof, vaginal bleeding, or dec fm. 07/10/22 -???-???-???-???-???-??? -???-???-???-???-???-??? - 29w 0d 245 lb 8 oz 132/86 Negative -???-???-???-???-???-??? -???-???-???-???-???-??? - Negative 148 29 -???-???-???-???-???-??? -???-???-???-???-???-??? - MH-No Vb, LO F. Good FM. Start FE. Larc. Tdap. Is doing glucose checks QID and will call after 1 week with levels. 07/23/22 -???-???-???-???-???-??? -???-???-???-???-???-??? - 30w 6d 245 lb 146/86 146/86 Negative -???-???-???-???-???-??? -???-???-???-???-???-??? - Negative 150 31 -???-???-???-???-???-??? -???-???-???-???-???-??? - KW- +FM. No lof/vb/ctx BS under 90/120. GBS discussed. alexus raygoza for monitor ing of bp 07/26/22 -???-???-???-???-???-??? -???-???-???-???-???-??? - 31w 2d 241 lb 8 oz 134/84 Negative -???-???-???-???-???-??? -???-???-???-???-???-??? - Negative 150 -???-???-???-???-???-??? -???-???-???-???-???-??? - SM- SM- bps at home improving on 60 pr ocardia no canas bv no vb lof good fm no regular ctx 07/30/22 -???-???-???-???-???-??? -???-???-???-???-???-??? - 31w 6d 246 lb 6 oz 137/91 137/91 Negative -???-???-???-???-???-??? -???-???-???-???-???-??? - Negative 145 32 -???-???-???-???-???-??? -???-???-???-???-???-??? - KW-+FM. No h eadache, vb,lof,ctx. BPs at home 120/70s. BS under 90/ 120. no complaints-feels much better ACOG First Trimester First Trimester: Second Trimester Second Trimester: Signs and Symptoms of Labor, Selecting a care provider, Reproductive Life Planning Contreception, Care Planning, Depression/Anxiety and Intimate Partner Violence; Discussed Tobacco Cessation Third Trimester Third Trimester: Pain Management Plans, Labor support person(s), Immediate Larc, Circumcision preference, Movement Monitoring, Signs and Symptoms of Preeclampsia, Infant Feeding Yes , [place] Education and Family Medical Leave or Disability Forms; Discussed Trial of Labor after Counseling Diagnostics Diagnostics Diagnostics: Blood Type O POSITIVE Antibody Screen NEGATIVE Gest Glucose Tolerance MG/DL Glucose 1 Hr 50 gm 176 mg/dL (70-140) H HIV 1 2 Antibody Non-Reactive (Nonreactive) Rubella IgG Antibody Reactive (Nonreactive) Hgb 10.4 g/dL (12.0-15.0) L Hct 31.9 % (37-47) L Details: HIV: Urine Culture: Sequential Screen: NIPT Screen: ROS Const Reports system reviewed and no additional complaints, except as documented Resp Reports system reviewed and no additional complaints, except as documented GI Reports system reviewed and no additional complaints, except as documented, Denies nausea and Denies vomiting Denies dysuria, Denies urinary hesitancy and Denies urinary urgency Psych Reports system reviewed and no additional complaints, except as documented Exam Const General: cooperative, healthy appearing and no acute distress Orientation: alert, awake and oriented x3 Neck Neck: normal visual inspection Resp Effort Inspection: normal respiratory effort and able to speak in complete sentences GI Inspection: normal to inspection Palpation: soft and other Other: gravid Neuro General: patient alert, patient awake and patient oriented x3 Psych Appearance: grossly normal Mental Status: mental status grossly normal Speech and Movement: speech and movement normal Attitude: cooperative Thought Process: normal Thought Content: normal Judgment: judgment good Office Procedures Non-stress Test Non-Stress Test Indications for Monitoring: Yes diabetes and Yes hypertension Time: 14:50 Blood Pressure: 137/91 Heart Rate Baseline: 145 Heart Rate Variability: moderate Movement: Present Heart Rate Accelerations: Present Decelerations: Absent Contractions: Absent Impression: Yes Reactive Non-Stress Test Results POC Urinalysis 2 Dip (Clinic) Office Urine Glucose Negative Last Edit by Temitope Paz on 07/30/22 15:09 Office Urine Protein Negative Last Edit by Temitope Paz on 07/30/22 15:09 Coding Level of Care Code OB Routine Diagnoses Gestational hypertension O13.9 Anemia in preg-unspec O99.019 Difficulty swallowing R13.10 Obesity affecting O99.210 Supervision of high risk , antepartum O09.90 Z3A.31 Weeks of gestation: 31 weeks Asthma J45.909 Seasonal allergies J30.2 Infertility Spotting N92.0 Fibroid uterus D25.9 CPT Codes Non-Stress Test (22540) Assessment and Plan Assessment and Plan (1) Gestational hypertension: Status: Acute Comment: growth us, steroids 07/23 and 07/24. procardia 60XL. nl labs. plan 2x weekly nsts, weekly yuliana, and weekly labs., home bp monitoring (2) Anemia in preg-unspec: Status: Acute Comment: start Fe daily (3) Difficulty swallowing: Status: Acute Comment: consult to GI. (4) Obesity affecting : Status: Acute Comment: 1 tm GCT encouraged healthy weight gain. BMI 39. abn 1 hr, normal 3 hr GTT (5) Supervision of high risk , antepartum: Status: Acute Comment: [id number], MIKE 10/05/22, Jarek (6) : Status: Acute Qualifiers: Weeks of gestation: 31 weeks Qualified Code(s): Z3A.31 - 31 weeks gestation of Comment: fail 1 hour GTT at 28 weeks. needs 3 hour. NIPT low risk, 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 (7) Asthma: Status: Acute Comment: virus and exercise induced (8) Seasonal allergies: Status: Acute Comment: fall/spring (9) Infertility: Status: Acute Comment: 3 years to conceive (10) Spotting: Status: Acute (11) Fibroid uterus: Status: Acute Comment: fibroids doubled in size in 5 years now 2 that are 2 cm. plan for HSG as pt wants to attempt . Orders: Orders OB NST Today O13.9 - Gestational [-induced] hypertension without significant proteinuria, unspecified trimester POC Urinalysis 2 Dip (Clinic) Today Plan Details Additional Comments: ACOG trimester education reviewed and updated. see problem list details for updated plan management information and see below for orders placed at this visit. GA appropriate handout given. 07/30/22 1535 <Electronically signed by Marcela Espana CNM> Date Marcela Espana CNM Cosigner Signature: Date (if applicable) CC: Rosanna Scales DO Work Phone: Start: 07-26-2022 End: 07-26-2022 Procedure Note: See Note; NOTES: [facility] [address] [place] [address] OFFICE VISIT Date of Service: 07/26/22 MR#: [id number] Acct: [id number] Name: CRISTELA SHAH Rep #: [id number] : 1995 Provider: Dr. Do julian MD Age/Sex: 26/F [place] [facility] [place] Status: Signed with Addenda ADDENDUM by Dr. Do Frankel MD on 07/26/22 at 1222 Office Procedure Documentation entered by Do Frankel MD 07/26/22 12:22: Non-stress Test Non-Stress Test Indications for Monitoring: Yes Preeclampsia Heart Rate Baseline: 150 Heart Rate Variability: moderate Movement: Present Heart Rate Accelerations: Present Decelerations: Absent Contractions: Absent Impression: Yes Reactive Non-Stress Test Category 1 07/26/22 1222 <Electronically signed by Do Frankel MD> Date Do Frankel MD cc: * Signed Intake Vital Signs 07/23/22 15:16 07/26/22 10:10 Height 5 ft 4 in 5 ft 4 in Weight: 241 lb 8 oz BMI 41.4 BP 134/84 H Intake Visit Reasons: NST Chief Complaint: NST ONLY Mammalogist Required: No Is patient in pain?: No Allergies No Known Allergies Allergy (Verified 07/26/22 10:10) Medications citalopram 20 mg tablet (Celexa) 20 mg PO DAILY 02/28/22 [History Confirmed 07/26/22] multivitamin no.47-iron fum 27 mg-folate no.1 1 mg-dha 300 mg capsule (PNV-DHA) cap PO 02/28/22 [History Confirmed 07/26/22] ondansetron 4 mg disintegrating tablet 4 mg PO Q4H PRN nausea and vomiting #60 tabs 04/29/22 [Rx Confirmed 07/26/22] blood sugar diagnostic (Blood Glucose Test strips) #50 ea 07/05/22 [Rx Confirmed 07/26/22] blood-glucose meter #1 ea 07/05/22 [Rx Confirmed 07/26/22] lancets #100 ea 07/05/22 [Rx Confirmed 07/26/22] nifedipine 30 mg tablet,extended release 24 hr (Procardia XL) 30 mg PO DAILY #30 tabs 07/23/22 [Rx Confirmed 07/26/22] Last Menstrual Period: 12/19/21 Zika: Zika virus screening: Negative : No PFSH PFSH Medical History Abnormality of hormone Depression Family History Father Hypertension Other Colon cancer Diabetes Heart disease Social History adopted: No household members: spouse housing: house current occupational status: employed current occupation: [employer] pets and animals: Yes pets and animals: dog(s) history of recent travel: No Smoking Status: Never smoker alcohol intake: former details: social not while substance use type: does not use well-balanced diet: daily or most days caffeine: No eating out: 4 or more times/week during the past year weight has: decreased > 10 lbs deloris/gnosticist: Restoration seatbelt use: always do you feel safe at home: Yes 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 OB Visit MIKE Calculator Estimated Delivery Date Method Current WG Current Estimate 09/25/22 LMP (Certain) 31w 2d Expected Delivery Route/Plan Labor Preferences- CB/BF classes: encouraged labor support person: Jarek labor intervention preferences: [] pain management options preferred: epidural cut cord/dad catch: cord : yes PP control planned: discussed discussed possible routes of delivery and associated risks: [] special requests: [] Specific Issue/Plans Covid status: discussed Flu vaccine: discussed Tdap vaccine: given Rhogam: na LARC form signed: yes Problem list reviewed and updated with the most current plan of care details and appropriate orders placed. Relevant counseling for the gestational age provided. Continue routine care and follow up unless otherwise noted in visit notes/problem list details Initial Weight: Not Recorded Date -???-???-???-???-???-??? -???-???-???-???-???-??? - EGA Weight BP Urine Prot -???-???-???-???-???-??? -???-???-???-???-???-??? - Glucose FHR FuHt Pres Dilation -???-???-???-???-???-??? -???-???-???-???-???-??? - Effaced St Visit Note 03/04/22 -???-???-???-???-???-??? -???-???-???-???-???-??? - 10w 5d 233 lb 129/73 -???-???-???-???-???-??? -???-???-???-???-???-??? - 180 -???-???-???-???-???-??? -???-???-???-???-???-??? - SM- CRL 2.8 cm cons with LMP 04/01/22 -???-???-???-???-???-??? -???-???-???-???-???-??? - 14w 5d 237 lb 136/88 -???-???-???-???-???-??? -???-???-???-???-???-??? - 157 -???-???-???-???-???-??? -???-???-???-???-???-??? - - no vb cr amping 04/29/22 -???-???-???-???-???-??? -???-???-???-???-???-??? - 18w 5d 239 lb 134/82 Negative -???-???-???-???-???-??? -???-???-???-???-???-??? - Negative 156 -???-???-???-???-???-??? -???-???-???-???-???-??? - -No VB rec ently. Had in past. [facility] anatomy US ordered. Kati for nausea. 05/27/22 -???-???-???-???-???-??? -???-???-???-???-???-??? - 22w 5d 240 lb 130/84 Negative -???-???-???-???-???-??? -???-???-???-???-???-??? - Negative 152 -???-???-???-???-???-??? -???-???-???-???-???-??? - MH-No VB, JOSE ALCALA. Some reflux/difficulty swalloing-try pepcid 06/26/22 -???-???-???-???-???-??? -???-???-???-???-???-??? - 27w 0d 241 lb 8 oz 138/84 Negative -???-???-???-???-???-??? -???-???-???-???-???-??? - Negative 164 -???-???-???-???-???-??? -???-???-???-???-???-??? - JV- still canas ving swallowing issues. consulting GI. no lof, vaginal bleeding, or dec fm. 07/10/22 -???-???-???-???-???-??? -???-???-???-???-???-??? - 29w 0d 245 lb 8 oz 132/86 Negative -???-???-???-???-???-??? -???-???-???-???-???-??? - Negative 148 29 -???-???-???-???-???-??? -???-???-???-???-???-??? - -No Vb, LO F. Good FM. Start FE. Larc. Tdap. Is doing glucose checks QID and will call after 1 week with levels. 07/23/22 -???-???-???-???-???-??? -???-???-???-???-???-??? - 30w 6d 245 lb 146/86 146/86 Negative -???-???-???-???-???-??? -???-???-???-???-???-??? - Negative 150 31 -???-???-???-???-???-??? -???-???-???-???-???-??? - KW- +FM. No lof/vb/ctx BS under 90/120. GBS discussed. to l d for monitor ing of bp 07/26/22 -???-???-???-???-???-??? -???-???-???-???-???-??? - 31w 2d 241 lb 8 oz 134/84 Negative -???-???-???-???-???-??? -???-???-???-???-???-??? - Negative 150 -???-???-???-???-???-??? -???-???-???-???-???-??? - SM- SM- bps at home improving on 60 pr ocardia no canas bv no vb lof good fm no regular ctx ACOG First Trimester First Trimester: Second Trimester Second Trimester: Signs and Symptoms of Labor, Selecting a care provider, Reproductive Life Planning Contreception, Care Planning, Depression/Anxiety and Intimate Partner Violence; Discussed Tobacco Cessation Third Trimester Third Trimester: Pain Management Plans, Labor support person(s), Immediate Larc, Circumcision preference, Movement Monitoring, Signs and Symptoms of Preeclampsia, Infant Feeding Yes , Education and Family Medical Leave or Disability Forms; Discussed Trial of Labor after Counseling Diagnostics Diagnostics Diagnostics: Gest Glucose Tolerance MG/DL Glucose 1 Hr 50 gm 176 mg/dL (70-140) H HIV 1 2 Antibody Non-Reactive (Nonreactive) Hgb 10.4 g/dL (12.0-15.0) L Hct 31.9 % (37-47) L Details: HIV: Urine Culture: Sequential Screen: NIPT Screen: Results POC Urinalysis 2 Dip (Clinic) Office Urine Glucose Negative Last Edit by Cande Rogers on 07/26/22 10:10 Office Urine Protein Negative Last Edit by Cande Rogers on 07/26/22 10:10 Coding Level of Care Code OB Routine Diagnoses Gestational hypertension O13.9 Anemia in preg-unspec O99.019 Difficulty swallowing R13.10 Obesity affecting O99.210 Supervision of high risk , antepartum O09.90 Z3A.31 Weeks of gestation: 31 weeks Asthma J45.909 Seasonal allergies J30.2 Infertility Spotting N92.0 Fibroid uterus D25.9 Assessment and Plan Assessment and Plan (1) Gestational hypertension: Status: Acute Comment: growth us, steroids 4/4 and 4/5. procardia 60XL. nl labs. plan 2x weekly nsts, weekly yuliana, and weekly labs., home bp monitoring (2) Anemia in preg-unspec: Status: Acute Comment: start Fe daily (3) Difficulty swallowing: Status: Acute Comment: consult to GI. (4) Obesity affecting : Status: Acute Comment: 1 tm GCT encouraged healthy weight gain. BMI 39. abn 1 hr, normal 3 hr GTT (5) Supervision of high risk , antepartum: Status: Acute Comment: [id number], MIKE 10/05/22, Jarek (6) : Status: Acute Qualifiers: Weeks of gestation: 31 weeks Qualified Code(s): Z3A.31 - 31 weeks gestation of Comment: fail 1 hour GTT at 28 weeks. needs 3 hour. NIPT low risk, 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 (7) Asthma: Status: Acute Comment: virus and exercise induced (8) Seasonal allergies: Status: Acute Comment: fall/spring (9) Infertility: Status: Acute Comment: 3 years to conceive (10) Spotting: Status: Acute (11) Fibroid uterus: Status: Acute Comment: fibroids doubled in size in 5 years now 2 that are 2 cm. plan for HSG as pt wants to attempt . Orders: Orders POC Urinalysis 2 Dip (Clinic) Today OB NST Today O13.9 - Gestational [-induced] hypertension without significant proteinuria, unspecified trimester OB Limited With Biometrics 08/23/22 O99.210 - Obesity complicating , unspecified trimester OB Limited (No Biometrics) 08/06/22 O13.9 - Gestational [-induced] hypertension without significant proteinuria, unspecified trimester OB Limited (No Biometrics) 08/13/22 O13.9 - Gestational [-induced] hypertension without significant proteinuria, unspecified trimester OB Limited (No Biometrics) 08/20/22 O13.9 - Gestational [-induced] hypertension without significant proteinuria, unspecified trimester OB Limited (No Biometrics) 08/27/22 O13.9 - Gestational [-induced] hypertension without significant proteinuria, unspecified trimester OB Limited (No Biometrics) 09/03/22 O13.9 - Gestational [-induced] hypertension without significant proteinuria, unspecified trimester 07/26/22 1221 <Electronically signed by Do Frankel MD> Date Do Frankel MD Cosigner Signature: Date (if applicable) CC: Rosanna Scales DO Work Phone: Start: 07-23-2022 End: 07-23-2022 OB Limited With Biometrics Procedure Note: See Note; NOTES: [facility] Imaging Services [address] [place] [id number] OB Limited With Biometrics MR#: [id number] Acct: [id number] Name: CRISTELA SHAH Rep #: [id number] : 1995 F 26 From: Say Taveras DO PCP: Dr. Rosanna Scales DO Status: [facility] CL Study: OB Limited With Biometrics Date of Exam: 07/23 Exam# [id number] Ordering Dr: Do Frankel STUDY: SECOND AND THIRD TRIMESTER OBSTETRICAL ULTRASOUND - LIMITED REASON FOR EXAM: Female, 26 years old. Growth. LMP: December 27, 2021 PRIOR ULTRASOUND: May 09, 2022. TECHNIQUE: Transabdominal TECHNICAL QUALITY: Adequate. FINDINGS: There is a single intrauterine fetus. The fetus is in a breech presentation. There is demonstrated cardiac activity with a heart rate of 145 bpm. There is a normal amniotic fluid volume. The largest amniotic fluid pocket measures 4.07 cm. The amniotic fluid index (YULIANA) is 15.11 cm. The placenta is fundal in location. There are Grade 1 placental changes. The cervix measures 4.1 cm cm in length. BIOMETRY: BPD: 7.63 cm: 30 weeks, 4 days HC: 28.73 cm: 31 weeks, 4 days AC: 27.82 cm: 31 weeks, 6 days FL: 5.38 cm: 28 weeks, 3 days Age by LMP: 30 weeks, 0 days. MIKE by LMP: October 01, 2022. age by prior US: 30 weeks, 0 days. MIKE by prior US: October 01, 2022. age by current US: 30 weeks, 3 days. MIKE by current US: September 28, 2022. Estimated weight: 1627 grams, +/- 244 grams, 63 percentile. US/OB Limited With Biometrics IMPRESSION: 1. Live single intrauterine at 30 weeks, 3 days. MKIE is September 28, 2022. There is adequate interval growth since prior ultrasound. 2. EFW 1627 g. 3. YULIANA of 15.11 cm. 4. Fundal grade 1 placenta. 5. Breech presentation. Electronically Signed: Say Taveras DO at 19:35 EDT Reading Location ID and State: [address] [place] [address] Tel [phone], Service support , CC: Dr. Rosanna Scales DO; Dr. Do Frankel MD Fuel Cell Designer: Signed Rosanna Scales DO Work Phone: Start: 07-23-2022 Ultrasound scan for growth Dr. Karin Scales Work Phone: Start: 07-23-2022 End: 07-23-2022 OB Triage Progress Note Procedure Note: See Note; NOTES: [facility] Medical Records Department [address] [place] [address] OB Triage Progress Note 07/23/22 1639 MR#: [id number] Acct: [id number] Name: CRISTELA SHAH Rep #: [id number] : 1995 26 From: Do Frankel MD PCP: Dr. Rosanna Scales, DO Status:REG CLI Y DOS: Location: [place] [address] Progress Notes Date of Service: 07/23/22 Progress Note: Patient presents for triage evaluation secondary to elevated blood pressure FHT: 140 Moderate variability reactive no decelerations category I tracing [place]: no regular Contractions Assessment and plan: ghtn Reactive NST labs WNL growth US ordered plan home bp monitoring, reassuring maternal and status patient discharged to home to follow-up in office. See problem list details for additional plan information. Laboratory Studies: Laboratory Tests 07/23/22 07/23/22 Range/Units 15:35 15:35 WBC 10.2 (4.4-11.0) K/mm3 RBC 3.82 L (4.2-5.4) M/mm3 Hgb 10.4 L (12.0-15.0) g/dL Hct 31.9 L (37-47) % MCV 83.5 (81-99) fL MCH 27.2 (27.0-32.0) pg MCHC 32.6 (32-36) g/dL RDW Std Deviation 41.8 (35.1-43.9) fl RDW Coeff of Kyler 14.1 (11.6-14.6) % Plt Count 220 (150-450) K/mm3 MPV 11.7 (6.2-12.0) fl Creatinine 0.52 L (0.55-1.02) mg/dL Estim Creat Clear Calc 139.09 ml/min Est GFR (MDRD) Af Amer 178 (>60) mL/min Est GFR (MDRD) Non-Af 147 (>60) mL/min Uric Acid 3.3 (2.6-6.0) mg/dL AST 12 L (15-37) U/L ALT 12 L (13-56) U/L Charges/Coding Procedures Urinary/Genital 52xxx-59xxx: [id number] non-stress test Interp Assessment Plan (1) Gestational hypertension: COMMENT: growth us, steroids 07/23 and 07/24. procardia started. nl labs. plan 2x weekly nsts, weekly yuliana, and weekly labs., home bp monitoring 07/23/22 1645 <Electronically signed by Do Frankel MD> Date Do Frankel MD Cosigner Signature (if applicable): Date CC: Dr. Rosanna Scales DO; Dr. 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 In [employer] Office Visit Report Procedure Note: See Note; NOTES: [facility] [address] [place] [address] OFFICE VISIT Date of Service: 07/23/22 MR#: [id number] Acct: [id number] Name: CRISTELA SHAH Rep #: [id number] : 1995 Provider: AL Castaneda ams Age/Sex: 26/F [place] [facility] [place]: Signed Intake Vital Signs 07/23/22 14:13 07/23/22 14:13 Height 5 ft 4 in 5 ft 4 in Weight: 245 lb BMI 42.0 Intake Visit Reasons: 31 WK OB Mammalogist Required: No Is patient in pain?: No Allergies No Known Allergies Allergy (Verified 07/23/22 14:11) Medications citalopram 20 mg tablet (Celexa) 20 mg PO DAILY 02/28/22 [History Confirmed 07/23/22] multivitamin no.47-iron fum 27 mg-folate no.1 1 mg-dha 300 mg capsule (PNV-DHA) cap PO 02/28/22 [History Confirmed 07/23/22] ondansetron 4 mg disintegrating tablet 4 mg PO Q4H PRN nausea and vomiting #60 tabs 04/29/22 [Rx Confirmed 07/23/22] blood sugar diagnostic (Blood Glucose Test strips) #50 ea 07/05/22 [Rx Confirmed 07/23/22] blood-glucose meter #1 ea 07/05/22 [Rx Confirmed 07/23/22] lancets #100 ea 07/05/22 [Rx Confirmed 07/23/22] Last Menstrual Period: 12/19/21 Zika: Zika virus screening: Negative : No PFSH PFSH Medical History Abnormality of hormone Depression Family History Father Hypertension Other Colon cancer Diabetes Heart disease Social History adopted: No household members: spouse housing: house current occupational status: employed current occupation: [employer] pets and animals: Yes pets and animals: dog(s) history of recent travel: No Smoking Status: Never smoker alcohol intake: former details: social not while substance use type: does not use well-balanced diet: daily or most days caffeine: No eating out: 4 or more times/week during the past year weight has: decreased > 10 lbs deloris/gnosticist: Restoration seatbelt use: always do you feel safe at home: Yes 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 OB Visit MIKE Calculator Estimated Delivery Date Method Current WG Current Estimate 09/25/22 LMP (Certain) 30w 6d Expected Delivery Route/Plan Labor Preferences- CB/BF classes: encouraged labor support person: Jarek labor intervention preferences: [] pain management options preferred: epidural cut cord/dad catch: cord : yes PP control planned: discussed discussed possible routes of delivery and associated risks: [] special requests: [] Specific Issue/Plans Covid status: discussed Flu vaccine: discussed Tdap vaccine: given Rhogam: na LARC form signed: yes Problem list reviewed and updated with the most current plan of care details and appropriate orders placed. Relevant counseling for the gestational age provided. Continue routine care and follow up unless otherwise noted in visit notes/problem list details Initial Weight: Not Recorded Date -???-???-???-???-???-??? -???-???-???-???-???-??? - EGA Weight BP Urine Prot -???-???-???-???-???-??? -???-???-???-???-???-??? - Glucose FHR FuHt Pres Dilation -???-???-???-???-???-??? -???-???-???-???-???-??? - Effaced St Visit Note 03/04/22 -???-???-???-???-???-??? -???-???-???-???-???-??? - 10w 5d 233 lb 129/73 -???-???-???-???-???-??? -???-???-???-???-???-??? - 180 -???-???-???-???-???-??? -???-???-???-???-???-??? - SM- CRL 2.8 cm cons with LMP 04/01/22 -???-???-???-???-???-??? -???-???-???-???-???-??? - 14w 5d 237 lb 136/88 -???-???-???-???-???-??? -???-???-???-???-???-??? - 157 -???-???-???-???-???-??? -???-???-???-???-???-??? - - no vb cr amping 04/29/22 -???-???-???-???-???-??? -???-???-???-???-???-??? - 18w 5d 239 lb 134/82 Negative -???-???-???-???-???-??? -???-???-???-???-???-??? - Negative 156 -???-???-???-???-???-??? -???-???-???-???-???-??? - -No VB rec ently. Had in past. [facility] anatomy US ordered. Kati for nausea. 05/27/22 -???-???-???-???-???-??? -???-???-???-???-???-??? - 22w 5d 240 lb 130/84 Negative -???-???-???-???-???-??? -???-???-???-???-???-??? - Negative 152 -???-???-???-???-???-??? -???-???-???-???-???-??? - -No VB, JOSE ALCALA. Some reflux/difficulty swalloing-try pepcid 06/26/22 -???-???-???-???-???-??? -???-???-???-???-???-??? - 27w 0d 241 lb 8 oz 138/84 Negative -???-???-???-???-???-??? -???-???-???-???-???-??? - Negative 164 -???-???-???-???-???-??? -???-???-???-???-???-??? - JV- still canas ving swallowing issues. consulting GI. no lof, vaginal bleeding, or dec fm. 07/10/22 -???-???-???-???-???-??? -???-???-???-???-???-??? - 29w 0d 245 lb 8 oz 132/86 Negative -???-???-???-???-???-??? -???-???-???-???-???-??? - Negative 148 29 -???-???-???-???-???-??? -???-???-???-???-???-??? - -No Vb, LO F. Good FM. Start FE. Larc. Tdap. Is doing glucose checks QID and will call after 1 week with levels. 07/23/22 -???-???-???-???-???-??? -???-???-???-???-???-??? - 30w 6d 245 lb 146/86 146/86 Negative -???-???-???-???-???-??? -???-???-???-???-???-??? - Negative 150 31 -???-???-???-???-???-??? -???-???-???-???-???-??? - KW- +FM. No lof/vb/ctx BS under 90/120. GBS discussed. to l d for monitor ing of bp ACOG First Trimester First Trimester: Second Trimester Second Trimester: Signs and Symptoms of Labor, Selecting a care provider, Reproductive Life Planning Contreception, Care Planning, Depression/Anxiety and Intimate Partner Violence; Discussed Tobacco Cessation Third Trimester Third Trimester: Pain Management Plans, Labor support person(s), Immediate Larc, Circumcision preference, Movement Monitoring, Signs and Symptoms of Preeclampsia, Feeding Yes , Education and Family Medical Leave or Disability Forms; Discussed Trial of Labor after Counseling Diagnostics Diagnostics Diagnostics: Blood Type O POSITIVE Antibody Screen NEGATIVE Gest Glucose Tolerance MG/DL Glucose 1 Hr 50 gm 176 mg/dL (70-140) H HIV 1 2 Antibody Non-Reactive (Nonreactive) Rubella IgG Antibody Reactive (Nonreactive) Hgb 10.5 g/dL (12.0-15.0) L Hct 32.6 % (37-47) L Chlamydia DNA (VIKTORIYA) Negative (Negative) N.gonorrhoeae DNA (VIKTORIYA) Negative (Negative) Details: HIV: Urine Culture: Sequential Screen: NIPT Screen: ROS Const Reports system reviewed and no additional complaints, except as documented Resp Reports system reviewed and no additional complaints, except as documented GI Reports system reviewed and no additional complaints, except as documented, Denies nausea and Denies vomiting Denies dysuria, Denies urinary hesitancy and Denies urinary urgency Psych Reports system reviewed and no additional complaints, except as documented Exam Const General: cooperative, healthy appearing and no acute distress Orientation: alert, awake and oriented x3 Neck Neck: normal visual inspection Resp Effort Inspection: normal respiratory effort and able to speak in complete sentences GI Inspection: normal to inspection Palpation: soft and other Other: gravid Neuro General: patient alert, patient awake and patient oriented x3 Psych Appearance: grossly normal Mental Status: mental status grossly normal Speech and Movement: speech and movement normal Attitude: cooperative Thought Process: normal Thought Content: normal Judgment: judgment good Results POC Urinalysis 2 Dip (Clinic) Office Urine Glucose Negative Last Edit by Ciera Fields on 07/23/22 14:31 Office Urine Protein Negative Last Edit by Ciera Fields on 07/23/22 14:31 Coding Level of Care Code OB Routine Diagnoses Anemia in preg-unspec O99.019 Difficulty swallowing R13.10 Obesity affecting O99.210 Supervision of high risk , antepartum O09.90 Z3A.30 Weeks of gestation: 30 weeks Asthma J45.909 Seasonal allergies J30.2 Infertility Spotting N92.0 Fibroid uterus D25.9 Transient hypertension of O13.9 Assessment and Plan Assessment and Plan (1) Anemia in preg-unspec: Status: Acute Comment: start Fe daily (2) Difficulty swallowing: Status: Acute Comment: consult to GI. (3) Obesity affecting : Status: Acute Comment: 1 tm GCT encouraged healthy weight gain. BMI 39. abn 1 hr, normal 3 hr GTT (4) Supervision of high risk , antepartum: Status: Acute Comment: [id number], MIKE 10/05/22, Jarek (5) : Status: Acute Qualifiers: Weeks of gestation: 30 weeks Qualified Code(s): Z3A.30 - 30 weeks gestation of Comment: fail 1 hour GTT at 28 weeks. needs 3 hour. NIPT low risk, 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 (6) Asthma: Status: Acute Comment: virus and exercise induced (7) Seasonal allergies: Status: Acute Comment: fall/spring (8) Infertility: Status: Acute Comment: 3 years to conceive (9) Spotting: Status: Acute (10) Fibroid uterus: Status: Acute Comment: fibroids doubled in size in 5 years now 2 that are 2 cm. plan for HSG as pt wants to attempt . (11) Transient hypertension of : Status: Acute Comment: 07/23/22 to to obtain labs, growth scan, and steriods. Orders: Orders POC Urinalysis 2 Dip (Clinic) Today Plan Details Additional Comments: ACOG trimester education reviewed and updated. see problem list details for updated plan management information and see below for orders placed at this visit. GA appropriate handout given. 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 [place] [address] OFFICE VISIT Date of Service: 07/10/22 MR#: [id number] Acct: [id number] Name: CIRSTELA SHAH Rep #: [id number] : 1995 Provider: LUIZ horner Age/Sex: 26/F [place] [facility] [place] Status: Signed Intake Vital Signs 06/26/22 16:16 07/10/22 14:22 07/10/22 14:23 Height 5 ft 4 in 5 ft 4 in 5 ft 4 in Weight: 245 lb 8 oz BMI 42.1 BP 132/86 H Intake Visit Reasons: 29 WK OB Chief Complaint: 29 Week OB Mammalogist Required: No Is patient in pain?: No Allergies No Known Allergies Allergy (Verified 07/10/22 14:23) Medications citalopram 20 mg tablet (Celexa) 20 mg PO DAILY 02/28/22 [History Confirmed 07/10/22] multivitamin no.47-iron fum 27 mg-folate no.1 1 mg-dha 300 mg capsule (PNV-DHA) cap PO 02/28/22 [History Confirmed 07/10/22] ondansetron 4 mg disintegrating tablet 4 mg PO Q4H PRN nausea and vomiting #60 tabs 04/29/22 [Rx Confirmed 07/10/22] blood sugar diagnostic (Blood Glucose Test strips) #50 ea 07/05/22 [Rx Confirmed 07/10/22] blood-glucose meter #1 ea 07/05/22 [Rx Confirmed 07/10/22] lancets #100 ea 07/05/22 [Rx Confirmed 07/10/22] Last Menstrual Period: 12/19/21 Zika: Zika virus screening: Negative : No PFSH PFSH Medical History Abnormality of hormone Depression Family History Father Hypertension Other Colon cancer Diabetes Heart disease Social History adopted: No household members: spouse housing: house current occupational status: employed current occupation: [employer] pets and animals: Yes pets and animals: dog(s) history of recent travel: No Smoking Status: Never smoker alcohol intake: former details: social not while substance use type: does not use well-balanced diet: daily or most days caffeine: No eating out: 4 or more times/week during the past year weight has: decreased > 10 lbs deloris/gnosticist: Restoration seatbelt use: always do you feel safe at home: Yes 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 OB Visit MIKE Calculator Estimated Delivery Date Method Current WG Current Estimate 09/25/22 LMP (Certain) 29w 0d Expected Delivery Route/Plan Labor Preferences- CB/BF classes: encouraged labor support person: Jarek labor intervention preferences: [] pain management options preferred: epidural cut cord/dad catch: cord : yes PP control planned: discussed discussed possible routes of delivery and associated risks: [] special requests: [] Specific Issue/Plans Covid status: discussed Flu vaccine: discussed Tdap vaccine: given Rhogam: na LARC form signed: yes Problem list reviewed and updated with the most current plan of care details and appropriate orders placed. Relevant counseling for the gestational age provided. Continue routine care and follow up unless otherwise noted in visit notes/problem list details Initial Weight: Not Recorded Date -???-???-???-???-???-??? -???-???-???-???-???-??? - EGA Weight BP Urine Prot -???-???-???-???-???-??? -???-???-???-???-???-??? - Glucose FHR FuHt Pres Dilation -???-???-???-???-???-??? -???-???-???-???-???-??? - Effaced St Visit Note 03/04/22 -???-???-???-???-???-??? -???-???-???-???-???-??? - 10w 5d 233 lb 129/73 -???-???-???-???-???-??? -???-???-???-???-???-??? - 180 -???-???-???-???-???-??? -???-???-???-???-???-??? - SM- CRL 2.8 cm cons with LMP 04/01/22 -???-???-???-???-???-??? -???-???-???-???-???-??? - 14w 5d 237 lb 136/88 -???-???-???-???-???-??? -???-???-???-???-???-??? - 157 -???-???-???-???-???-??? -???-???-???-???-???-??? - SM- no vb cr amping 04/29/22 -???-???-???-???-???-??? -???-???-???-???-???-??? - 18w 5d 239 lb 134/82 Negative -???-???-???-???-???-??? -???-???-???-???-???-??? - Negative 156 -???-???-???-???-???-??? -???-???-???-???-???-??? - -No VB rec ently. Had in past. [facility] anatomy US ordered. Kati for nausea. 05/27/22 -???-???-???-???-???-??? -???-???-???-???-???-??? - 22w 5d 240 lb 130/84 Negative -???-???-???-???-???-??? -???-???-???-???-???-??? - Negative 152 -???-???-???-???-???-??? -???-???-???-???-???-??? - -No JOSE BLACKWOOD. Chon ALCALA. Some reflux/difficulty swalloing-try pepcid 06/26/22 -???-???-???-???-???-??? -???-???-???-???-???-??? - 27w 0d 241 lb 8 oz 138/84 Negative -???-???-???-???-???-??? -???-???-???-???-???-??? - Negative 164 -???-???-???-???-???-??? -???-???-???-???-???-??? - JV- scott canas ving swallowing issues. consulting GI. no lof, vaginal bleeding, or dec fm. 07/10/22 -???-???-???-???-???-??? -???-???-???-???-???-??? - 29w 0d 245 lb 8 oz 132/86 Negative -???-???-???-???-???-??? -???-???-???-???-???-??? - Negative 148 29 -???-???-???-???-???-??? -???-???-???-???-???-??? - MH-No Vb, LO F. Chon FM. Start FE. Larc. Tdap. Is doing glucose checks QID and will call after 1 week with levels. ACOG First Trimester First Trimester: Second Trimester Second Trimester: Signs and Symptoms of Labor, Selecting a care provider, Reproductive Life Planning Contreception, Care Planning, Depression/Anxiety and Inti mate Partner Violence; Discussed Tobacco Cessation Third Trimester Third Trimester: Pain Management Plans, Labor support person(s), Immediate Larc, Circumcision preference Yes Yes, Movement Monitoring, Signs and Symptoms of Preeclampsia, Feeding Yes , [place] Education and Family Medical Leave or Disability Forms Diagnostics Diagnostics Diagnostics: Blood Type O POSITIVE Antibody Screen NEGATIVE Gest Glucose Tolerance MG/DL Glucose 1 Hr 50 gm 176 mg/dL (70-140) H HIV 1 2 Antibody Non-Reactive (Nonreactive) Rubella IgG Antibody Reactive (Nonreactive) Hgb 10.5 g/dL (12.0-15.0) L Hct 32.6 % (37-47) L Chlamydia DNA (VIKTORIYA) Negative (Negative) N.gonorrhoeae DNA (VIKTORIYA) Negative (Negative) Details: HIV: Urine Culture: Sequential Screen: NIPT Screen: ROS Const Reports system reviewed and no additional complaints, except as documented GI Denies abdominal pain, Denies nausea and Denies vomiting Exam Const General: cooperative Nutritional Appearance: well nourished GI Palpation: soft, nontender and other (gravid) Results POC Urinalysis 2 Dip (Clinic) Office Urine Glucose Negative Last Edit by Cande Rogers on 07/10/22 14:21 Office Urine Protein Negative Last Edit by Cande Rogers on 07/10/22 14:21 Immunizations Adacel(Tdap Adolesn/Adult)(PF) Performing Provider: Jaqueline Hutchison APPRENTICE ELECTRICIAN, APPRENTICE ELECTRICIAN-C Administered by: Cande Rogers on 07/10/22 14:34 Dose Route Admin Location Lot Number Expiration Date NDC Manufactu rer 0.5 mL IM Left Deltoid [id number] 04/05/24 [id number] [employer] VIS Given Date VIS Provided VIS Publication Date 07/10/22 Single Vaccine 20 Eligibility Eligibility Date Funding Source Not Applicable Coding Level of Care Code OB Routine Diagnoses Supervision of high risk , antepartum O09.90 Obesity affecting O99.210 Anemia in preg-unspec O99.019 Z3A.27 Weeks of gestation: 27 weeks Infertility Assessment and Plan Assessment and Plan (1) Supervision of high risk , antepartum: Status: Acute Comment: [id number], MIKE 10/05/22, Jarek (2) Obesity affecting : Status: Acute Comment: 1 tm GCT encouraged healthy weight gain. BMI 39. abn 1 hr, normal 3 hr GTT (3) Anemia in preg-unspec: Status: Acute Comment: start Fe daily (4) : Status: Acute Qualifiers: Weeks of gestation: 27 weeks Qualified Code(s): Z3A.27 - 27 weeks gestation of Comment: fail 1 hour GTT at 28 weeks. needs 3 hour. NIPT low risk, 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 (5) Infertility: Status: Acute Comment: 3 years to conceive Orders: Orders POC Urinalysis 2 Dip (Clinic) Today Tdap Immunization Today Z23 - Encounter for immunization Plan problem list reviewed and updated for most current plan of care and appropriate orders placed. Relevant counseling for the gestational age appropriate provided and ACOG education checklist updated. Continue routine care and follow up. 07/10/22 1525 <Electronically signed by Jaqueline Hutchison NP APPRENTICE ELECTRICIAN-C> Date Jaqueline Foster APPRENTICE ELECTRICIAN APPRENTICE ELECTRICIAN-C Cosigner Signature: Date (if applicable) CC: Rosanna Manuel DO Work Phone: Start: 06-26-2022 End: 06-26-2022 Drawer In Jacquard Loom Office Visit Report Procedure Note: See Note; NOTES: [facility] [place] [address] [place] [address] OFFICE VISIT Date of Service: 06/26/22 MR#: [id number] Acct: [id number] Name: CRISTELA SHAH Rep #: [id number] : 1995 Provider: Dr. Gay Gifford DO Age/Sex: 26/F [place] [facility] [place]: Signed Intake Vital Signs 06/26/22 15:30 06/26/22 15:30 Height 5 ft 4 in 5 ft 4 in Weight: 241 lb 8 oz BMI 41.4 BP 138/84 H Intake Visit Reasons: 26 WK OB Mammalogist Required: No Is patient in pain?: No Allergies No Known Allergies Allergy (Verified 06/26/22 15:33) Medications citalopram 20 mg tablet (Celexa) 20 mg PO DAILY 02/28/22 [History Confirmed 06/26/22] multivitamin no.47-iron fum 27 mg-folate no.1 1 mg-dha 300 mg capsule (PNV-DHA) cap PO 02/28/22 [History Confirmed 06/26/22] ondansetron 4 mg disintegrating tablet 4 mg PO Q4H PRN nausea and vomiting #60 tabs 04/29/22 [Rx Confirmed 06/26/22] Last Menstrual Period: 12/19/21 Zika: Zika virus screening: Negative : No PFSH PFSH Medical History Abnormality of hormone Depression Family History Father Hypertension Other Colon cancer Diabetes Heart disease Social History adopted: No household members: spouse housing: house current occupational status: employed current occupation: [employer] pets and animals: Yes pets and animals: dog(s) history of recent travel: No Smoking Status: Never smoker alcohol intake: former details: social not while substance use type: does not use well-balanced diet: daily or most days caffeine: No eating out: 4 or more times/week during the past year weight has: decreased > 10 lbs deloris/gnosticist: Restoration seatbelt use: always do you feel safe at home: Yes 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 OB Visit MIKE Calculator Estimated Delivery Date Method Current WG Current Estimate 09/25/22 LMP (Certain) 27w 0d Expected Delivery Route/Plan Labor Preferences- CB/BF classes: [] labor support person: [] labor intervention preferences: [] pain management options preferred: [] cut cord/dad catch: [] : [] PP control planned: [] discussed possible routes of delivery and associated risks: [] special requests: [] Specific Issue/Plans Covid status: discussed Flu vaccine: discussed Tdap vaccine: [] Rhogam: [] LARC form signed: [] Problem list reviewed and updated with the most current plan of care details and appropriate orders placed. Relevant counseling for the gestational age provided. Continue routine care and follow up unless otherwise noted in visit notes/problem list details Initial Weight: Not Recorded Date -???-???-???-???-???-??? -???-???-???-???-???-??? - EGA Weight BP Urine Prot -???-???-???-???-???-??? -???-???-???-???-???-??? - Glucose FHR FuHt Pres Dilation -???-???-???-???-???-??? -???-???-???-???-???-??? - Effaced St Visit Note 03/04/22 -???-???-???-???-???-??? -???-???-???-???-???-??? - 10w 5d 233 lb 129/73 -???-???-???-???-???-??? -???-???-???-???-???-??? - 180 -???-???-???-???-???-??? -???-???-???-???-???-??? - SM- CRL 2.8 cm cons with LMP 04/01/22 -???-???-???-???-???-??? -???-???-???-???-???-??? - 14w 5d 237 lb 136/88 -???-???-???-???-???-??? -???-???-???-???-???-??? - 157 -???-???-???-???-???-??? -???-???-???-???-???-??? - SM- no vb cr amping 04/29/22 -???-???-???-???-???-??? -???-???-???-???-???-??? - 18w 5d 239 lb 134/82 Negative -???-???-???-???-???-??? -???-???-???-???-???-??? - Negative 156 -???-???-???-???-???-??? -???-???-???-???-???-??? - -No VB rec ently. Had in past. [facility] anatomy US ordered. Kati for nausea. 05/27/22 -???-???-???-???-???-??? -???-???-???-???-???-??? - 22w 5d 240 lb 130/84 Negative -???-???-???-???-???-??? -???-???-???-???-???-??? - Negative 152 -???-???-???-???-???-??? -???-???-???-???-???-??? - -No VB, LO F. Good FM. Some reflux/difficulty swalloing-try pepcid 06/26/22 -???-???-???-???-???-??? -???-???-???-???-???-??? - 27w 0d 241 lb 8 oz 138/84 Negative -???-???-???-???-???-??? -???-???-???-???-???-??? - Negative 164 -???-???-???-???-???-??? -???-???-???-???-???-??? - JV- scott canas ving swallowing issues. consulting GI. no lof, vaginal bleeding, or dec fm. ACOG First Trimester First Trimester: Discussed Second Trimester Second Trimester: Signs and Symptoms of Labor, Selecting a care provider, Reproductive Life Planning Contreception, Care Planning, Depression/Anxiety and Intimate Partner Violence; Discussed Tobacco Cessation Third Trimester Third Trimester: Pain Management Plans, Labor support person(s), Immediate Larc, Movement Monitoring, Signs and Symptoms of Preeclampsia and [employer] Diagnostics Diagnostics: Blood Type O POSITIVE Antibody Screen NEGATIVE Gest Glucose Tolerance MG/DL Glucose 1 Hr 50 gm 164 mg/dL (70-140) H HIV 1 2 Antibody Non-Reactive (Nonreactive) Rubella IgG Antibody Reactive (Nonreactive) Hgb 11.3 g/dL (12.0-15.0) L Hct 35.3 % (37-47) L Chlamydia DNA (VIKTORIYA) Negative (Negative) N.gonorrhoeae DNA (VIKTORIYA) Negative (Negative) Details: HIV: Urine Culture: Sequential Screen: NIPT Screen: ROS Const Denies fever(s) GI Reports as per HPI and Denies abdominal pain Reports as per HPI, Denies abnormal vaginal bleeding, Denies dysuria and Denies vaginal discharge Exam Const General: healthy appearing, comfortable and no acute distress GI Inspection: normal to inspection Palpation: soft and nontender Results POC Urinalysis 2 Dip (Clinic) Office Urine Glucose Negative Last Edit by Ciera Fields on 06/26/22 15:43 Office Urine Protein Negative Last Edit by Ciera Fields on 06/26/22 15:43 Coding Level of Care Code OB Routine Diagnoses Obesity affecting O99.210 Supervision of high risk , antepartum O09.90 Z3A.27 Weeks of gestation: 27 weeks Asthma J45.909 Seasonal allergies J30.2 Infertility Spotting N92.0 Fibroid uterus D25.9 Difficulty swallowing R13.10 Assessment and Plan Assessment and Plan (1) Obesity affecting : Status: Acute Comment: 1 tm GCT encouraged healthy weight gain. BMI 39. abn 1 hr, normal 3 hr GTT (2) Supervision of high risk , antepartum: Status: Acute Comment: [id number], MIKE 10/05/22, Jarek (3) : Status: Acute Qualifiers: Weeks of gestation: 27 weeks Qualified Code(s): Z3A.27 - 27 weeks gestation of Comment: NIPT low risk, 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 (4) Asthma: Status: Acute Comment: virus and exercise induced (5) Seasonal allergies: Status: Acute Comment: fall/spring (6) Infertility: Status: Acute Comment: 3 years to conceive (7) Spotting: Status: Acute (8) Fibroid uterus: Status: Acute Comment: fibroids doubled in size in 5 years now 2 that are 2 cm. plan for HSG as pt wants to attempt . (9) Difficulty swallowing: Status: Acute Comment: consult to GI. Orders: Orders POC Urinalysis 2 Dip (Clinic) Today 06/26/22 1617 <Electronically signed by Gay Gan DO> Date Gay Gan DO Cosigner Signature: Date (if applicable) CC: Rosanna Scales DO Work Phone: Start: 05-27-2022 End: 06-03-2022 Drawer In Jacquard Loom Office Visit Report Procedure Note: See Note; NOTES: [facility] [address] [place] [address] OFFICE VISIT Date of Service: 05/27/22 MR#: [id number] Acct: [id number] Name: CRISTELA SHAH Rep #: [id number] : 1995 Provider: LUIZ horner Age/Sex: 26/F [place] [facility] [place]: Signed Intake Vital Signs 05/27/22 15:36 05/27/22 15:36 05/27/22 15:39 Height 5 ft 4 in 5 ft 4 in 5 ft 4 in Weight: 240 lb BMI 41.1 BP 130/84 H Intake Visit Reasons: 22 WK OB Mammalogist Required: No Allergies No Known Allergies Allergy (Verified 05/27/22 15:36) Medications citalopram 20 mg tablet (Celexa) 20 mg PO DAILY 02/28/22 [History Confirmed 05/27/22] multivitamin no.47-iron fum 27 mg-folate no.1 1 mg-dha 300 mg capsule (PNV-DHA) cap PO 02/28/22 [History Confirmed 05/27/22] ondansetron 4 mg disintegrating tablet 4 mg PO Q4H PRN nausea and vomiting #60 tabs 04/29/22 [Rx Confirmed 05/27/22] Last Menstrual Period: 12/19/21 Zika: Zika virus screening: Negative : No PFSH PFSH Medical History Abnormality of hormone Depression Family History Father Hypertension Other Colon cancer Diabetes Heart disease Social History adopted: No household members: spouse housing: house current occupational status: employed current occupation: [employer] pets and animals: Yes pets and animals: dog(s) history of recent travel: No Smoking Status: Never smoker alcohol intake: former details: social not while substance use type: does not use well-balanced diet: daily or most days caffeine: No eating out: 4 or more times/week during the past year weight has: decreased > 10 lbs deloris/gnosticist: Restoration seatbelt use: always do you feel safe at home: Yes 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 OB Visit MIKE Calculator Estimated Delivery Date Method Current WG Current Estimate 09/25/22 LMP (Certain) 22w 5d Comments: HIV: Urine Culture: Sequential Screen: NIPT Screen: Expected Delivery Route/Plan Labor Preferences- CB/BF classes: [] labor support person: [] labor intervention preferences: [] pain management options preferred: [] cut cord/dad catch: [] : [] PP control planned: [] discussed possible routes of delivery and associated risks: [] special requests: [] Specific Issue/Plans Covid status: discussed Flu vaccine: discussed Tdap vaccine: [] Rhogam: [] LARC form signed: [] Problem list reviewed and updated with the most current plan of care details and appropriate orders placed. Relevant counseling for the gestational age provided. Continue routine care and follow up unless otherwise noted in visit notes/problem list details Initial Weight: Not Recorded Date -???-???-???-???-???-??? -???-???-???-???-???-??? - EGA Weight BP Urine Prot -???-???-???-???-???-??? -???-???-???-???-???-??? - Glucose FHR FuHt Pres Dilation -???-???-???-???-???-??? -???-???-???-???-???-??? - Effaced St Visit Note 03/04/22 -???-???-???-???-???-??? -???-???-???-???-???-??? - 10w 5d 233 lb 129/73 -???-???-???-???-???-??? -???-???-???-???-???-??? - 180 -???-???-???-???-???-??? -???-???-???-???-???-??? - SM- CRL 2.8 cm cons with LMP 04/01/22 -???-???-???-???-???-??? -???-???-???-???-???-??? - 14w 5d 237 lb 136/88 -???-???-???-???-???-??? -???-???-???-???-???-??? - 157 -???-???-???-???-???-??? -???-???-???-???-???-??? - - no vb cr amping 04/29/22 -???-???-???-???-???-??? -???-???-???-???-???-??? - 18w 5d 239 lb 134/82 Negative -???-???-???-???-???-??? -???-???-???-???-???-??? - Negative 156 -???-???-???-???-???-??? -???-???-???-???-???-??? - -No VB rec ently. Had in past. [facility] anatomy US ordered. Kati for nausea. 05/27/22 -???-???-???-???-???-??? -???-???-???-???-???-??? - 22w 5d 240 lb 130/84 Negative -???-???-???-???-???-??? -???-???-???-???-???-??? - Negative 152 -???-???-???-???-???-??? -???-???-???-???-???-??? - -No VB, JOSE ALCALA. Some reflux/difficulty swalloing-try pepcid ACOG First Trimester First Trimester: Discussed Diagnostics Diagnostics Diagnostics: Blood Type O POSITIVE Antibody Screen NEGATIVE Gest Glucose Tolerance MG/DL Glucose 1 Hr 50 gm 164 mg/dL (70-140) H HIV 1 2 Antibody Non-Reactive (Nonreactive) Rubella IgG Antibody Reactive (Nonreactive) Hgb 11.3 g/dL (12.0-15.0) L Hct 35.3 % (37-47) L Chlamydia DNA (VIKTORIYA) Negative (Negative) N.gonorrhoeae DNA (VIKTORIYA) Negative (Negative) Details: HIV: Urine Culture: Sequential Screen: NIPT Screen: HIV: Urine Culture: Sequential Screen: NIPT Screen: ROS Const Reports system reviewed and no additional complaints, except as documented GI Denies abdominal pain, Denies nausea and Denies vomiting Exam Const General: cooperative Nutritional Appearance: well nourished GI Palpation: soft, nontender and other (gravid) Results POC Urinalysis 2 Dip (Clinic) Office Urine Glucose Negative Last Edit by Ciera Fields on 05/27/22 15:43 Office Urine Protein Negative Last Edit by Ciera Fields on 05/27/22 15:43 Coding Level of Care Code OB Routine Diagnoses Supervision of high risk , antepartum O09.90 Obesity affecting O99.210 Z3A.22 Weeks of gestation: 22 weeks Asthma J45.909 Seasonal allergies J30.2 Infertility Spotting N92.0 Fibroid uterus D25.9 Assessment and Plan Assessment and Plan (1) Supervision of high risk , antepartum: Status: Acute Comment: AVIL4Y1, MIKE 10/05/22, Jarek (2) Obesity affecting : Status: Acute Comment: 1 tm GCT encouraged healthy weight gain. BMI 39. abn 1 hr, normal 3 hr GTT (3) : Status: Acute Qualifiers: Weeks of gestation: 22 weeks Qualified Code(s): Z3A.22 - 22 weeks gestation of Comment: NIPT low risk, 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 (4) Asthma: Status: Acute Comment: virus and exercise induced (5) Seasonal allergies: Status: Acute Comment: fall/spring (6) Infertility: Status: Acute Comment: 3 years to conceive (7) Spotting: Status: Acute (8) Fibroid uterus: Status: Acute Comment: fibroids doubled in size in 5 years now 2 that are 2 cm. plan for HSG as pt wants to attempt . Orders: Orders POC Urinalysis 2 Dip (Clinic) Today HIV - [facility] Today O09.90 - Supervision of high risk , unspecified, unspecified trimester Syphilis Antibodies Today O09.90 - Supervision of high risk , unspecified, unspecified trimester Glucose Challenge Gest 1H 50g Today O09.90 - Supervision of high risk , unspecified, unspecified trimester, Z13.1 - Encounter for screening for diabetes mellitus CBC W/Diff, Automated Today O09.90 - Supervision of high risk , unspecified, unspecified trimester Plan problem list reviewed and updated for most current plan of care and appropriate orders placed. Relevant counseling for the gestational age appropriate provided and ACOG education checklist updated. Continue routine care and follow up. 06/03/22 0753 <Electronically signed by Do Frankel MD> Date Do Farnkel MD 05/27/22 1617<Electronically signed by Jaqueline Hutchison NP APPRENTICE ELECTRICIAN-C> Cosigner Signature: Date (if applicable) Jaqueline Hutchison NP APPRENTICE ELECTRICIAN-C CC: Rosanna Scales DO Work Phone: Start: 05-09-2022 End: 05-09-[address] Rosanna Scales Work Phone: Start: 05-09-2022 End: 05-09-2022 OB Anatomy Scan Procedure Note: See Note; NOTES: [facility] Imaging Services [address] [place] [address] OB Anatomy Scan MR#: [id number] Acct: [id number] Name: CRISTELA SHAH Rep #: [id number] : 1995 F 26 From: Boris appiah MD PCP: Dr. Rosanna Scales, DO Status: REG CLI Study: OB Anatomy Scan Date of Exam: 05/09/22 Exam# [id number] Ordering Dr: Jaqueline Hutchison NP APPRENTICE ELECTRICIAN -C STUDY: SECOND AND THIRD TRIMESTER OBSTETRICAL ULTRASOUND REASON FOR EXAM: Female, 26 years old Anatomy US LMP: 12/27/2021 TECHNIQUE: Transabdominal and Transvaginal TECHNICAL QUALITY: Adequate. PRIOR ULTRASOUND: None. FINDINGS: There is a single intrauterine fetus. The fetus is in an transverse lie with the head on the maternal left side. There is demonstrated cardiac activity with a heart rate of 155 bpm. There is a normal amniotic fluid volume. The largest amniotic fluid pocket measures 3.1 cm x 8.5 cm. The amniotic fluid index (YULIANA) is within normal limits. The placenta is fundal in location. There are Grade 1 placental changes. The cervix measures 6 cm in length. The bilateral adnexal regions are normal. BIOMETRY: BPD: 4.5 cm: 19 weeks, 4 days HC: 16.3 cm: 19 weeks, 0 days AC: 13.6 on: 19 weeks, 0 days FL: 2.9 cm: 19 weeks, 0 days CI: 79% FL/BPD: 65% FL/HC: FL/AC: 22% HC/AC: 1.2 age by current US: 19 weeks, 2 days. MIKE by current US: 10/01/2022. Estimated weight: 274 grams, +/- 41 grams, 52 %. Age by LMP: 19 weeks, 0 days. MIKE by LMP: 10/03/2022. ANATOMY: Gender: Male Cranium: Normal lateral ventricles. Normal choroid plexus. Normal cerebellum. Normal cisterna magna. Normal face, nose and lips. Chest: Normal 4-chamber heart. Abdomen/Pelvis: Normal diaphragm. Normal stomach. Normal abdominal wall. Normal cord insertion. Normal 3 vessel cord. Normal kidneys. Normal bladder. Spine: Normal cervical spine. Normal thoracic spine. Normal lumbar spine. Normal sacrum. Extremities: Normal bilateral upper extremities. Normal bilateral lower extremities. IMPRESSION: Single live intrauterine gestation with a mean gestational age of 19 weeks and 2 days. Electronically Signed: Boris Sierra MD at 11:00 EST , STUDY: FIRST TRIMESTER OBSTETRICAL ULTRASOUND REASON FOR EXAM: Female, 26 years old . Cervical length. LMP: 12/27/2021 TECHNIQUE: Transvaginal TECHNICAL QUALITY: Adequate. PRIOR ULTRASOUND: None. FINDINGS: The cervical length measures 6 cm. US/OB Anatomy Scan IMPRESSION: Cervical length measures 6 cm. Electronically Signed: Boris Sierra MD at 11:00 EST , CC: LUIZ Hutchison; Dr. Rosanna Scales DO Fuel Cell Designer: Signed Rosanna Scales DO Work Phone: Start: 04-29-2022 End: 04-29-2022 Drawer In Jacquard Loom Office Visit Report Procedure Note: See Note; NOTES: [facility] [address] [place] [address]. [address] [place] [address] OFFICE VISIT Date of Service: 04/29/22 MR#: [id number] Acct: [id number] Name: CRISTELA SHAH Rep #: [id number] : 1995 Provider: LUIZ horner Age/Sex: 26/F [place] [facility] [place] Status: Signed Intake Vital Signs 04/29/22 15:51 04/29/22 15:59 Height 5 ft 4 in 5 ft 4 in Weight: 239 lb BMI 41.0 BP 134/82 H Intake Visit Reasons: 18 WK OB Chief Complaint: 18 Week OB Mammalogist Required: No Is patient in pain?: No Allergies No Known Allergies Allergy (Verified 04/29/22 15:51) Medications citalopram 20 mg tablet (Celexa) 20 mg PO DAILY 02/28/22 [History Confirmed 04/29/22] multivitamin no.47-iron fum 27 mg-folate no.1 1 mg-dha 300 mg capsule (PNV-DHA) cap PO 02/28/22 [History Confirmed 04/29/22] ondansetron 4 mg disintegrating tablet 4 mg PO Q4H PRN nausea and vomiting #60 tabs 04/29/22 [Rx Confirmed 04/29/22] Last Menstrual Period: 12/19/21 Zika: Zika virus screening: Negative : No Nurse's Note: Patient states that she does not have an ultrasound scheduled with [facility], states that she was supposed to check and see if her insurance covered and she has not gotten to it. US ordered placed with [facility] d/t patient being almost 19 weeks. [facility] Medical History Abnormality of hormone Depression Family History Father Hypertension Other Colon cancer Diabetes Heart disease Social History adopted: No household members: spouse housing: house current occupational status: employed current occupation: [employer] pets and animals: Yes pets and animals: dog(s) history of recent travel: No Smoking Status: Never smoker alcohol intake: former details: social not while substance use type: does not use well-balanced diet: daily or most days caffeine: No eating out: 4 or more times/week during the past year weight has: decreased > 10 lbs deloris/gnosticist: Restoration seatbelt use: always do you feel safe at home: Yes 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 OB Visit MIKE Calculator Estimated Delivery Date Method Current WG Current Estimate 09/25/22 LMP (Certain) 18w 5d Expected Delivery Route/Plan Labor Preferences- CB/BF classes: [] labor support person: [] labor intervention preferences: [] pain management options preferred: [] cut cord/dad catch: [] : [] PP control planned: [] discussed possible routes of delivery and associated risks: [] special requests: [] Specific Issue/Plans Covid status: discussed Flu vaccine: discussed Tdap vaccine: [] Rhogam: [] LARC form signed: [] Problem list reviewed and updated with the most current plan of care details and appropriate orders placed. Relevant counseling for the gestational age provided. Continue routine care and follow up unless otherwise noted in visit notes/problem list details Initial Weight: Not Recorded Date -???-???-???-???-???-??? -???-???-???-???-???-??? - EGA Weight BP Urine Prot -???-???-???-???-???-??? -???-???-???-???-???-??? - Glucose FHR FuHt Pres Dilation -???-???-???-???-???-??? -???-???-???-???-???-??? - Effaced St Visit Note 03/04/22 -???-???-???-???-???-??? -???-???-???-???-???-??? - 10w 5d 233 lb 129/73 -???-???-???-???-???-??? -???-???-???-???-???-??? - 180 -???-???-???-???-???-??? -???-???-???-???-???-??? - SM- CRL 2.8 cm cons with LMP 04/01/22 -???-???-???-???-???-??? -???-???-???-???-???-??? - 14w 5d 237 lb 136/88 -???-???-???-???-???-??? -???-???-???-???-???-??? - 157 -???-???-???-???-???-??? -???-???-???-???-???-??? - SM- no vb cr amping 04/29/22 -???-???-???-???-???-??? -???-???-???-???-???-??? - 18w 5d 239 lb 134/82 Negative -???-???-???-???-???-??? -???-???-???-???-???-??? - Negative 156 -???-???-???-???-???-??? -???-???-???-???-???-??? - -No VB rec ently. Had in past. [facility] anatomy US ordered. Kati for nausea. ACOG First Trimester First Trimester: Discussed Diagnostics Diagnostics Diagnostics: Blood Type O POSITIVE Antibody Screen NEGATIVE Gest Glucose Tolerance MG/DL Glucose 1 Hr 50 gm 164 mg/dL (70-140) H HIV 1 2 Antibody Non-Reactive (Nonreactive) Rubella IgG Antibody Reactive (Nonreactive) Hgb 11.3 g/dL (12.0-15.0) L Hct 35.3 % (37-47) L Chlamydia DNA (VIKTORIYA) Negative (Negative) N.gonorrhoeae DNA (VIKTORIYA) Negative (Negative) Details: HIV: Urine Culture: Sequential Screen: NIPT Screen: ROS Const Reports system reviewed and no additional complaints, except as documented GI Denies abdominal pain, Denies nausea and Denies vomiting Exam Const General: cooperative Nutritional Appearance: well nourished GI Palpation: soft, nontender and other (gravid) Results POC Urinalysis 2 Dip (Clinic) Office Urine Glucose Negative Last Edit by Cande Rogers on 04/29/22 15:51 Office Urine Protein Negative Last Edit by Cande Rogers on 04/29/22 15:51 Coding Level of Care Code OB Routine Diagnoses Supervision of high risk , antepartum O09.90 Z3A.14 Weeks of gestation: 14 weeks Obesity affecting O99.210 Assessment and Plan Assessment and Plan (1) Supervision of high risk , antepartum: Status: Acute Comment: [id number], MIKE 10/05/22, Jarek (2) : Status: Acute Qualifiers: Weeks of gestation: 14 weeks Qualified Code(s): Z3A.14 - 14 weeks gestation of Comment: NIPT low risk, 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 BMI 39. abn 1 hr, normal 3 hr GTT Orders: Orders POC Urinalysis 2 Dip (Clinic) Today OB Anatomy Scan Today Z34.90 - Encounter for supervision of normal , unspecified, unspecified trimester Medications: New ondansetron 4 mg PO Q4H PRN 60 tabs 2RF nausea and vomiting Plan problem list reviewed and updated for most current plan of care and appropriate orders placed. Relevant counseling for the gestational age appropriate provided and ACOG education checklist updated. Continue routine care and follow up. 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 [place] [address] OFFICE VISIT Date of Service: 04/01/22 MR#: [id number] Acct: [id number] Name: CRISTELA SHAH Rep #: [id number] : 1995 Provider: Dr. Do julian MD Age/Sex: 26/F [place] [facility] [place]: Signed Intake Vital Signs 04/01/22 14:37 04/01/22 14:43 Height 1.63 m 1.63 m Weight: 107.501 kg BMI 40.6 BP 136/88 H Intake Visit Reasons: 13 WK OB Chief Complaint: est ob Mammalogist Required: No Is patient in pain?: No Allergies No Known Allergies Allergy (Verified 02/28/22 15:37) Medications citalopram 20 mg tablet (Celexa) 20 mg PO DAILY 02/28/22 [History Confirmed 04/01/22] multivitamin no.47-iron fum 27 mg-folate no.1 1 mg-dha 300 mg capsule (PNV-DHA) cap PO 02/28/22 [History Confirmed 04/01/22] Last Menstrual Period: 12/19/21 Zika: Zika virus screening: Negative : No PFSH PFSH Medical History Abnormality of hormone Depression Family History Father Hypertension Other Colon cancer Diabetes Heart disease Social History adopted: No household members: spouse housing: house current occupational status: employed current occupation: [employer] pets and animals: Yes pets and animals: dog(s) history of recent travel: No Smoking Status: Never smoker alcohol intake: former details: social not while substance use type: does not use well-balanced diet: daily or most days caffeine: No eating out: 4 or more times/week during the past year weight has: decreased > 10 lbs deloris/gnosticist: Restoration seatbelt use: always do you feel safe at home: Yes 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 OB Visit MIKE Calculator Estimated Delivery Date Method Current WG Current Estimate 09/25/22 LMP (Certain) 14w 5d Expected Delivery Route/Plan Labor Preferences- CB/BF classes: [] labor support person: [] labor intervention preferences: [] pain management options preferred: [] cut cord/dad catch: [] : [] PP control planned: [] discussed possible routes of delivery and associated risks: [] special requests: [] Specific Issue/Plans Covid status: discussed Flu vaccine: discussed Tdap vaccine: [] Rhogam: [] LARC form signed: [] Problem list reviewed and updated with the most current plan of care details and appropriate orders placed. Relevant counseling for the gestational age provided. Continue routine care and follow up unless otherwise noted in visit notes/problem list details Initial Weight: Not Recorded Date -???-???-???-???-???-??? -???-???-???-???-???-??? - EGA Weight BP Urine Prot -???-???-???-???-???-??? -???-???-???-???-???-??? - Glucose FHR FuHt Pres Dilation -???-???-???-???-???-??? -???-???-???-???-???-??? - Effaced St Visit Note 03/04/22 -???-???-???-???-???-??? -???-???-???-???-???-??? - 10w 5d 105.687 kg 129/73 -???-???-???-???-???-??? -???-???-???-???-???-??? - 180 -???-???-???-???-???-??? -???-???-???-???-???-??? - SM- CRL 2.8 cm cons with LMP 04/01/22 -???-???-???-???-???-??? -???-???-???-???-???-??? - 14w 5d 107.501 kg 136/88 -???-???-???-???-???-??? -???-???-???-???-???-??? - 157 -???-???-???-???-???-??? -???-???-???-???-???-??? - SM- no vb cr amping ACOG First Trimester First Trimester: Discussed Diagnostics Diagnostics Diagnostics: Blood Type O POSITIVE Antibody Screen NEGATIVE Hgb 12.0 g/dL (12.0-15.0) Hct 39.9 % (37-47) Chlamydia DNA (VIKTORIYA) Negative (Negative) N.gonorrhoeae DNA (VIKTORIYA) Negative (Negative) Details: HIV: Urine Culture: Sequential Screen: NIPT Screen: Coding Level of Care Code OB Routine Diagnoses Obesity affecting O99.210 Supervision of high risk , antepartum O09.90 Z3A.14 Weeks of gestation: 14 weeks Seasonal allergies J30.2 Asthma J45.909 Assessment and Plan Assessment and Plan (1) Obesity affecting : Status: Acute Comment: 1 tm GCT encouraged healthy weight gain. BMI 39. (2) Supervision of high risk , antepartum: Status: Acute Comment: , MIKE 10/05/22, Jarek (3) : Status: Acute Qualifiers: Weeks of gestation: 14 weeks Qualified Code(s): Z3A.14 - 14 weeks gestation of Comment: discussed genetic carrier testing (4) Seasonal allergies: Status: Acute Comment: fall/spring (5) Asthma: Status: Acute Comment: virus and exercise induced Orders: Orders POC Urinalysis 2 Dip (Clinic) Today 04/01/22 1508 <Electronically signed by Do Frankel MD> Date Do Frankel MD Cosigner Signature: Date (if applicable) CC: Rosanna Scales DO Work Phone: Start: 03-04-2022 End: 03-04-2022 Drawer In [employer] Office Visit Report Procedure Note: See Note; NOTES: [facility] [address] [place] [address] OFFICE VISIT Date of Service: 03/04/22 MR#: [id number] Acct: [id number] Name: CRISTELA SHAH Rep #: [id number] : 1995 Provider: Dr. Do julian MD Age/Sex: 26/F [place] [facility] [place]: Signed Intake Vital Signs 01/24/22 08:08 03/04/22 13:35 03/04/22 13:35 Height 5 ft 4 in 5 ft 4 in 5 ft 4 in Weight: 233 lb BMI 39.9 BP 129/73 H Intake Visit Reasons: NOB LMP 12/29/21 Chief Complaint: NEW OB LMP 12/29/21 Mammalogist Required: No Is patient in pain?: No Allergies No Known Allergies Allergy (Verified 02/28/22 15:37) Medications citalopram 20 mg tablet (Celexa) 20 mg PO DAILY 02/28/22 [History Confirmed 02/28/22] multivitamin no.47-iron fum 27 mg-folate no.1 1 mg-dha 300 mg capsule (PNV-DHA) cap PO 02/28/22 [History Confirmed 02/28/22] Last Menstrual Period: 12/19/21 Zika: Zika virus screening: Negative : No PFSH PFSH Medical History (Updated 03/04/22 @ 14:[address] Do Frankel MD) Abnormality of hormone Depression Family History Father Hypertension Other Colon cancer Diabetes Heart disease Social History adopted: No household members: spouse housing: house current occupational status: employed current occupation: [employer] pets and animals: Yes pets and animals: dog(s) history of recent travel: No Smoking Status: Never smoker alcohol intake: former details: social not while substance use type: does not use well-balanced diet: daily or most days caffeine: No eating out: 4 or more times/week during the past year weight has: decreased > 10 lbs deloris/gnosticist: Restoration seatbelt use: always do you feel safe at home: Yes 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 OB Visit MIKE Calculator Estimated Delivery Date Method Current WG Current Estimate 09/25/22 LMP (Certain) 10w 5d Comments: HIV: Urine Culture: Sequential Screen: NIPT Screen: Estimated Due Date: 09/25/22 Expected Delivery Route/Plan Labor Preferences- CB/BF classes: [] labor support person: [] labor intervention preferences: [] pain management options preferred: [] cut cord/dad catch: [] : [] PP control planned: [] discussed possible routes of delivery and associated risks: [] special requests: [] Specific Issue/Plans Covid status: discussed Flu vaccine: discussed Tdap vaccine: [] Rhogam: [] LARC form signed: [] Problem list reviewed and updated with the most current plan of care details and appropriate orders placed. Relevant counseling for the gestational age provided. Continue routine care and follow up unless otherwise noted in visit notes/problem list details Initial Weight: Not Recorded Date -???-???-???-???-???-??? -???-???-???-???-???-??? - EGA Weight BP Urine Prot -???-???-???-???-???-??? -???-???-???-???-???-??? - Glucose FHR FuHt Pres Dilation -???-???-???-???-???-??? -???-???-???-???-???-??? - Effaced St Visit Note 03/04/22 -???-???-???-???-???-??? -???-???-???-???-???-??? - 10w 5d 233 lb 129/73 -???-???-???-???-???-??? -???-???-???-???-???-??? - 180 -???-???-???-???-???-??? -???-???-???-???-???-??? - SM- CRL 2.8 cm cons with LMP Menstrual History Last Menstrual Period: 12/19/21 Reported LMP: definite Normal amount/duration: Yes Frequency in days: 28 On hormonal BC at conception: No hCG+: 01/23/22 Antepartum Record Genetic Screening: Congenital Heart Defect: Other, Neural Tube Defect: Other, Hemoglobinopathy Or Carrier: Other, Cystic Fibrosis: Other, Chromosome Abnormality: Other, Michele-Sachs: Other, Hemophilia: Other, Intellectual Disability/Autism: Other, Recurrent Loss/Stillbirth: Other, Other Structural Defect: Other, Other Genetic Disease: Other and Maternal Metabolic Disorder: Other Infection History: Live with someone with TB or Exposed to TB: No, Patient or Partner has history of Genital Herpes: No, Rash or Viral illness since last mentrual period: No, Prior GBS-Infected child: No, History of STD: No, HIV Infection: No, History of Hepatitis: No, Recent travel outside of [place]: No, Concern for hepatitis exposure: No and Varicella immune: Yes (immune) Comments: Covid Vaccinated ([place]) + 1 Booster Medical History Medical History: Positive: Depression/ depression (medicated), Pulmonary (e.g.,TB,Asthma) (asthma seasonal viruses flair it up), Seasonal allergies (fall/spring), Infertility (3 years to get ) and Other (Hx of low progesterone and high estrogen) and Negative: Diabetes, Hypertension, Heart disease, Auto-immune disorder, Kidney disease/UTI, Neurologic/epilepsy, Psychiatric, Hepatitis/liver disease, Varicosities/phlebitis, Thyroid dysfunction, Trauma/domestic violence, History of blood transfusions, D (Rh) Sensitized, Drug/latex allergies/reactions, Breast, Electronics Assembler surgery, Operations/hospitalizati ons, Anesthetic complications, History of abnormal pap, Uterine anomaly/cari, Anti-retroviral treatment and Relevant family history ACOG First Trimester First Trimester: Discussed ROS Const Reports system reviewed and no additional complaints, except as documented, Reports fatigue and Denies fever(s) Eyes Reports system reviewed and no additional complaints, except as documented ENT Reports system reviewed and no additional complaints, except as documented Card Denies chest pain and Denies dyspnea Resp Reports system reviewed and no additional complaints, except as documented, Denies cough and Denies dyspnea GI Denies abdominal pain and Reports nausea Reports system reviewed and no additional complaints, except as documented Musc Reports system reviewed and no additional complaints, except as documented Skin/Breast Reports system reviewed and no additional complaints, except as documented Neuro Yes system reviewed and no additional complaints, except as documented Psych Reports system reviewed and no additional complaints, except as documented Endo Reports system reviewed and no additional complaints, except as documented and Reports fatigue Exam Const General: healthy appearing, comfortable and no acute distress Orientation: alert [facility] Head: normal to inspection, normocephalic and atraumatic Ears: hearing grossly normal bilaterally and external ears normal Nose: external nose normal and nares normal Mouth: oral mucosae normal Teeth and gingiva: dentition normal Eyes General: appearance normal, both eyes and all related structures Neck Neck: normal visual inspection, no lymphadenopathy and supple Thyroid: thyroid normal Chest Chest palpation inspection: normal inspection of the chest Breast inspection: normal inspection of the breasts and normal inspection of the axillae Breast palpation: normal palpation of the breasts and normal palpation of the axillae Resp Effort Inspection: normal respiratory effort GI Inspection: normal to inspection Palpation: soft and no hepatosplenomegaly General: bladder normal to palpation External Female Exam: normal external appearance and normal appearance of the urethra Urethra: normal appearance of the urethra Speculum Exam - Vagina: normal appearance of the vagina and normal vaginal discharge Speculum Exam - Cervix: normal appearance of the cervix Bimanual Exam- Vagina Uterus: normal bimanual exam, bladder normal to palpation, non-tender and other Bimanual Exam- Adnexa, other: non-tender Skin General: no rashes or lesions noted Neuro Motor: muscle tone normal throughout and no movement abnormalities noted Extrem General: normal to inspection and full ROM Supplemental Info ACOG book given and patient encouraged to read about nutrition, exercise, weight gain, and food avoidance in . Coding Level of Care Code OB Routine Diagnoses Supervision of high risk , antepartum O09.90 Z3A.10 Weeks of gestation: 10 weeks Asthma J45.909 Seasonal allergies J30.2 Infertility Spotting N92.0 Fibroid uterus D25.9 Encounter for pre-employment health screening examination Z02.1 Depression F32.A Obesity affecting O99.210 Assessment and Plan Assessment and Plan (1) Supervision of high risk , antepartum: Status: Acute Comment: , MIKE 10/05/22, Jarek (2) : Status: Acute Qualifiers: Weeks of gestation: 10 weeks Qualified Code(s): Z3A.10 - 10 weeks gestation of Comment: discussed genetic carrier testing (3) Asthma: Status: Acute Comment: virus and exercise induced (4) Seasonal allergies: Status: Acute Comment: fall/spring (5) Infertility: Status: Acute Comment: 3 years to conceive (6) Spotting: Status: Acute (7) Fibroid uterus: Status: Acute Comment: fibroids doubled in size in 5 years now 2 that are 2 cm. plan for HSG as pt wants to attempt . (8) Encounter for pre-employment health screening examination: Status: Acute (9) Depression: Status: Inactive Comment: citalopram (10) Obesity affecting : Status: Acute Comment: 1 tm GCT encouraged healthy weight gain. BMI 39. Orders: Orders Type Screen Today Z34 - Encounter for supervision of normal , unspecified, unspecified trimester Hepatitis B Surface Antigen Today Z34 - Encounter for supervision of normal , unspecified, unspecified trimester Hepatitis C Antibody Today Z34 - Encounter for supervision of normal , unspecified, unspecified trimester HIV - [facility] Today Z34 - Encounter for supervision of normal , unspecified, unspecified trimester Syphilis Antibodies Today Z34 - Encounter for supervision of normal , unspecified, unspecified trimester Rubella IgG Today Z34 - Encounter for supervision of normal , unspecified, unspecified trimester Glucose Challenge Gest 1H 50g Today Z34. - Encounter for supervision of normal , unspecified, unspecified trimester CBC W/Diff, Automated Today Z34 - Encounter for supervision of normal , unspecified, unspecified trimester Culture, Urine Today Z34 - Encounter for supervision of normal , unspecified, unspecified trimester Chlamydia/GC VIKTORIYA aptima Today Z34 - Encounter for supervision of normal , unspecified, unspecified trimester Urine Drug Screen ([facility]) Today Z34 - Encounter for supervision of normal , unspecified, unspecified trimester Plan Patient oriented to practice and discussed care expectations and screenings. ACOG book offered to patient. Discussed routine and specially indicated labs if needed- patient consents to testing. See problem list details for plan information. Optional screening including maternal carrier screenings, neural tube defect screening, genetic screening options including quad screen, nuchal translucency, sequential screening, and NIPT screening offered to patient and patient chose: considering 03/04/22 0912 <Electronically signed by Do Frankel MD> Date Do Frankel MD [facility] Signature: Date (if applicable) CC: Rosanna Scales DO Work Phone: Start: 09-14-2021 End: 09-14-2021 Drawer In [employer]qu[employer]oom Office Visit Report Procedure Note: See Note; NOTES: [facility] [address] [place] [address] OFFICE VISIT Date of Service: 09/14/21 MR#: [id number] Acct: [id number] Name: CRISTELA SHAH Rep #: [id number] : 1995 Provider: Dr. Gay Gifford DO Age/Sex: 25/F [place] [facility] [place]: Signed Intake Vital Signs 09/14/21 14:43 Height 5 ft 4 in Weight: 241 lb 4 oz BMI 41.3 BP 120/90 H Intake Visit Reasons: review US results Mammalogist Required: No Is patient in pain?: No Allergies No Known Allergies Allergy (Verified 09/14/21 14:42) Medications duloxetine 30 mg capsule,delayed release 60 mg PO DAILY cap 08/30/21 [History Confirmed 09/14/21] Post menopausal: No Patient : No : No PFSH Family History Father Hypertension Social History Smoking Status: Never smoker alcohol intake: never substance use type: does not use caffeine: Yes what type of physical activity do you participate in: walking and weight training frequency: 3-4 times per week seatbelt use: always do you feel safe at home: Yes additional social history: - Jarek HPI review US results Details: CRISTELA SHAH is a 25 year old who presents for discussion and review of ultrasound. This is to discuss reason for pelvic pain with sex. She has a 7.5 cm uterus with 2 fibroids meauring 2 cm each. She has a 1-2 cm left ovarian follicular cyst. Last ultrasound in 2016 showed only one fibroid and it wa only 9mm. She is itnerested in getting . Pregancy History 0 Elective abortions Hx Para Spontaneous abortions Hx # Term Pregnancies Ectopic pregnancies Hx # Pregnancies Multiple births # of living children ROS Const ROS Unobtainable: All systems reviewed are unremarkable except as noted in H Resp Resp: Reports system reviewed and no additional complaints, except as documented; Denies cough GI GI: Reports as per HPI Psych Psych: Reports system reviewed and no additional complaints, except as documented Exam Const General: cooperative, healthy appearing, comfortable and no acute distress Resp Effort Inspection: normal respiratory effort Skin General: no rashes or lesions noted Psych Appearance: grossly normal Speech and Movement: speech and movement normal Coding Level of Care Code Off vis,est,level 3 Diagnoses Fibroid uterus D25.9 Assessment and Plan Assessment and Plan (1) Fibroid uterus: Status: Acute Comment: fibroids doubled in size in 5 years now 2 that are 2 cm. plan for HSG as pt wants to attempt . Plan - Dr. Gay Gan, DO: pt to call when has period for us to schedule HSG. 09/14/21 1547 <Electronically signed by Gay Gan DO> Date Gay Gan DO Cosigner Signature: Date (if applicable) CC: Rosanna Scales DO Work Phone: Start: 09-05-[address] Rosanna Scales Work Phone: Start: 09-05-[address] Rosanna Scales Work Phone: Start: 09-05-2021 End: 09-05-2021 Pelvic (Non ) Procedure Note: See Note; NOTES: [facility] Imaging Services [address] [place] [address] Pelvic (Non ) MR#: [id number] Acct: [id number] Name: CRISTELA SHAH Rep #: [id number] : 1995 F 25 From: Boris appiah MD PCP: Dr. Rosanna Scales DO Status: REG CLI Study: Pelvic (Non ) Date of Exam: 09/05/21 Exam# [id number] Ordering Dr: Gay Gan DO STUDY: ULTRASOUND OF THE FEMALE PELVIS - COMPLETE REASON FOR EXAM: Female, 25 years old. Pelvic pain -- PAINFUL PERIODS X 10 YEARS LMP: 08/28/2021. TECHNIQUE: Transabdominal and Transvaginal TECHNICAL QUALITY: Adequate. COMPARISON: Comparison is made with prior study dated 12/14/2016. FINDINGS: The uterus is anteverted and is in a midline position. The uterus measures 7.5 cm x 5.3 cm x 4 cm. There is a Nabothian cyst of the cervix. The endometrium measures 5 mm in thickness, and is hyperechoic. There is no demonstrated endometrial mass. 2 uterine fibroids are seen. The larger fibroid measures 2 cm x 2 cm x 1.5 cm. I.U.D. - The patient does not have an I.U.D. The right ovary is visualized. The right ovary measures 3.1 cm x 4.2 cm x 1.9 cm. There is no right ovarian cyst or ovarian mass. There is no visualized right adnexal mass or complex lesion. There is normal arterial and normal venous vascularity. The left ovary is visualized. The left ovary measures 4.1 cm x 4.5 cm x 1.6 cm. A dominant follicle is seen within the left ovary measuring 1.5 cm x 1.3 cm x 1.2 cm. There is no visualized left adnexal mass or complex lesion. There is normal arterial and normal venous vascularity. There is no fluid in the cul-de-sac. The pre void volume of the bladder was 780 ml. US/Pelvic (Non ) IMPRESSION: Fibroid uterus. Dominant follicle in the left ovary measuring 1.57 x 1.3 cm x 1.2 cm. Electronically Signed: Boris Sierra MD at 10:29 EDT , CC: Dr. Rosanna Scales DO; Dr. Gay Gan DO Fuel Cell Designer: Signed Rosanna Scales DO Work Phone: Start: 09-05-2021 End: 09-05-2021 Transvaginal Non- Procedure Note: See Note; NOTES: [facility] Imaging Services [address] [place] [address] Transvaginal Non- MR#: [id number] Acct: [id number] Name: CRISTELA SHAH Rep #: [id number] : 1995 F 25 From: Boris appiah MD PCP: Dr. Rosanna Scales DO Status: REG CLI Study: Transvaginal Non- Date of Exam: Exam# [id number] Ordering Dr: Gay Gan DO STUDY: ULTRASOUND OF THE FEMALE PELVIS - COMPLETE REASON FOR EXAM: Female, 25 years old. Pelvic pain -- PAINFUL PERIODS X 10 YEARS LMP: 08/28/2021. TECHNIQUE: Transabdominal and Transvaginal TECHNICAL QUALITY: Adequate. COMPARISON: Comparison is made with prior study dated 12/14/2016. FINDINGS: The uterus is anteverted and is in a midline position. The uterus measures 7.5 cm x 5.3 cm x 4 cm. There is a Nabothian cyst of the cervix. The endometrium measures 5 mm in thickness, and is hyperechoic. There is no demonstrated endometrial mass. 2 uterine fibroids are seen. The larger fibroid measures 2 cm x 2 cm x 1.5 cm. I.U.D. - The patient does not have an I.U.D. The right ovary is visualized. The right ovary measures 3.1 cm x 4.2 cm x 1.9 cm. There is no right ovarian cyst or ovarian mass. There is no visualized right adnexal mass or complex lesion. There is normal arterial and normal venous vascularity. The left ovary is visualized. The left ovary measures 4.1 cm x 4.5 cm x 1.6 cm. A dominant follicle is seen within the left ovary measuring 1.5 cm x 1.3 cm x 1.2 cm. There is no visualized left adnexal mass or complex lesion. There is normal arterial and normal venous vascularity. There is no fluid in the cul-de-sac. The pre void volume of the bladder was 780 ml. US/Transvaginal Non- IMPRESSION: Fibroid uterus. Dominant follicle in the left ovary measuring 1.57 x 1.3 cm x 1.2 cm. Electronically Signed: Boris Sierra MD at 10:29 EDT Reading Location ID and State: [facility] / [place] , Service support , CC: Dr. Rosanna Scaels DO; Dr. Gay Gan DO Fuel Cell Designer: Signed Rosanna Scales DO Work Phone: Start: 08-30-2021 End: 08-30-2021 Drawer In [employer]oom Office Visit Report Procedure Note: See Note; NOTES: [facility] [address] [place] [address]. [address] [place], [place] [id number] OFFICE VISIT Date of Service: 08/30/21 MR#: [id number] Acct: [id number] Name: CRISTELA SHAH Rep #: [id number] : 1995 Provider: Dr. 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: No Is patient in pain?: No Allergies No Known Allergies Allergy (Verified 08/30/21 09:24) Medications duloxetine 30 mg capsule,delayed release 60 mg PO DAILY cap 08/30/21 [History Confirmed 08/30/21] Is last menstrual period known: Yes Last Menstral Period: 08/30/21 Post menopausal: No Patient : No : No PFSH Family History (Updated 08/30/21 @ 09:25 by Ciera Fields) Father Hypertension Social History (Updated 08/30/21 @ 09:26 by Ciera Fields) Smoking Status: Never smoker alcohol intake: never substance use type: does not use caffeine: Yes what type of physical activity do you participate in: walking and weight training frequency: 3-4 times per week seatbelt use: always do you feel safe at home: Yes additional social history: - Jarek Pregancy History 0 Elective abortions Hx Para Spontaneous abortions Hx # Term Pregnancies Ectopic pregnancies Hx # Pregnancies Multiple births # of living children HPI Encounter for routine gynecological examination Details: CRISTELA SHAH is a 25 year old who presents for annual exam. Last PAP: 2017 History of abnormal PAP: no Last mammogram: pt can not remember- but she had one in the past for a breast lump and results showed just fibrous tissue or dense tissue History of abnormal mammogram: see above Colon cancer screening:starting age 40 Other preventative health care screenings: followed by pcp pt on her menses today. complaints of pelvic pain with intercourse and decrease in lubrication. she states that she was told by a male ob that it was because she was not attracted to her . This offended her greatly. She also was told also by a hormone specialist that her estrogen levels are 3 x normal and her progesterone is low. She also has a h/o ovarian cyst and fibroid in uterus. Female Reproductive History Last Menstral Period: 08/30/21 Cycle Length: 21-35 Bleeding Duration: 5 Questions: metorrhagia: No, sexually active: Yes, dyspareunia: No and PCB: No Menopausal Symptoms: No hot flashes, No night sweats, No weight change, No mood changes, No difficulty concentrating, No sleep problems and No change in libido ROS Const Constitutional: Reports as per HPI; Denies fatigue, increased appetite, poor appetite, night sweats, weight gain or weight loss Cardio Card: Denies chest pain Resp Resp: Denies cough or dyspnea GI GI: Reports as per HPI; Denies abdominal pain, bloating, constipation, nausea or vomiting : Reports as per HPI and other; Denies difficulty voiding, dysuria, hematuria, hot flashes, nipple discharge, pelvic pain, prolapse symptoms, urinary frequency, urinary incontinence, urinary urgency, vaginal discharge, vaginal dryness, vaginal odor or vaginal pruritus Skin Skin/Breast: Denies changing lesions, breast mass, breast pain, breast skin changes or nipple discharge Psych Psych: Denies anxiety, change in libido, depression or difficulty concentrating Exam Const General: cooperative, healthy appearing, comfortable, no acute distress, well developed and well groomed [facility] Head: normal to inspection and normocephalic Ears: hearing grossly normal bilaterally and external ears normal Nose: external nose normal Face and sinus: normal facial exam Neck Neck: normal visual inspection, full ROM and no lymphadenopathy Thyroid: thyroid normal Chest Chest palpation inspection: normal inspection of the chest Breast inspection: normal inspection of the breasts and normal inspection of the axillae Breast palpation: normal palpation of the breasts, normal palpation of the axillae and no axillary lymphadenopathy Resp Effort Inspection: normal respiratory effort GI Inspection: normal to inspection and non-distended Palpation: soft, no hepatosplenomegaly and no guarding General: bladder normal to palpation External Female Exam: normal external appearance, normal appearance of the urethra and no lesions Urethra: normal appearance of the urethra and normal palpation Speculum Exam - Vagina: normal appearance of the vagina and normal vaginal discharge Speculum Exam - Cervix: normal appearance of the cervix, no cervical discharge, no lesions and nontender Bimanual Exam- Vagina Uterus: normal bimanual exam, uterine size normal, bladder normal to palpation, No tender, uterine mobility normal, consistency normal, non-tender and no cervical motion tenderness Bimanual Exam- Adnexa, other: normal adnexae, no masses and non-tender Skin General: no rashes or lesions noted Neuro General: patient alert, moves all extremities and no focal motor deficits Extrem General: normal to inspection and no pedal edema Psych Appearance: grossly normal Mental Status: mental status grossly normal Affect: normal affect Speech and Movement: speech and movement normal Attitude: cooperative Coding Level of Care Code Off vis,new,prev 18-39yrs Diagnoses Encounter for routine gynecological examination Z01.419 Assessment and Plan Assessment and Plan (1) Encounter for routine gynecological examination: Plan - Dr. Gay Gan, DO: Cervical cancer screening: pap done today but bloody. pt understands may need to be repeated. Breast cancer screening: start routine mammograms at age 40 STD prevention and contraceptive options including their risks, benefits, and alternatives were reviewed with the patient and she chooses: none at this time. Encouraged maintenance of a healthy weight and active lifestyle and handout given. Calcium/vitamin D recommendations provided. Annual exam handout including recommendations for good health guidelines and basic screening information given. Problem list up to date, see problem list details for any additional plan information. ultrasound ordered -will follow up via phone call with results. we touched on discussion about weight loss medication or assistance. follow up in one year for annual health maintenance exam or sooner if needed. Plan Details Other Orders: Orders: Pelvic (Non ) Today R10.2, Z87.42 Transvaginal Non- Today R10.2, Z87.42 08/30/21 0946 <Electronically signed by Gay Gan DO> Date Gay Gan DO Cosigner Signature: Date (if applicable) CC: Rosanna Scales DO Work Phone: Start: 07-12-2021 End: 07-12-2021 Urgent Care Visit Report Procedure Note: See Note; NOTES: [facility] [address] [place] [address] OFFICE VISIT Date of Service: 07/12/21 MR#: [id number] Acct: [id number] Name: CRISTELA SHAH NATHAN Rep #: [id number] : 1995 Provider: VALERIA cano Age/Sex: 25/F [place] [facility] Status: Signed Intake Intake Visit Reasons: PE physical Allergies No Known Allergies Allergy (Verified 12/21/17 09:53) PFSH Social History Smoking Status: Never smoker HPI HPI Details: CRISTELA SHAH, is a 25 F who presents to the office today for Office Procedures Physical Exam Coding PE Coding Sports/School Physical: No DOT PE: No Pre-employment PE: Yes Coding Level of Care Code No Charge Diagnoses Encounter for pre-employment health screening examination Z02.1 CPT Codes PE Coding - Pre-employment PE: Yes (PREPE) Assessment and Plan Assessment and Plan (1) Encounter for pre-employment health screening examination: Status: Acute 07/12/21 0804 <Electronically signed by Dm SHAW> Date Dm SHAW Cosigner Signature: Date (if applicable) CC: Rosanna Scales DO Work Phone: Start: 01-15-2021 End: 01-15-2021 Chest PA and Lateral Comments: See Note; NOTES: [facility] Imaging Services [address] [place] [address] Chest PA and Lateral MR#: [id number] Acct: [id number] Name: CRISTELA SHAH Rep #: [id number] : 1995 F 25 From: Say Taveras DO PCP: Dr. Rosanna Scales DO Status: REG CLI Study: Chest PA and Lateral Date of Exam: 01/15/21 Exam# [id number] Ordering Dr: Rosanna Scales DO STUDY: X-RAY CHEST REASON FOR EXAM: Female, 25 years old. Shortness of breath. TECHNIQUE: PA and lateral views of the chest. COMPARISON: 05/06/2017. FINDINGS: The lungs are clear and expanded. There is no demonstrated pleural abnormality. Normal size heart. Normal mediastinum and billy. Normal visualized pulmonary arteries. Normal visualized aortic arch and descending thoracic aorta. Normal visualized thoracic spine. Normal visualized ribs, clavicles, and shoulders. There is no demonstrated abnormality of the visualized soft tissue structures of the upper abdomen. RAD/Chest PA and Lateral IMPRESSION: No acute cardiopulmonary disease or interval change. Electronically Signed: Say Taveras DO at 16:21 EDT Tel [phone], Service support , CC: Dr. Rosanna Scales DO Fuel Cell Designer: Signed Rosanna Scales DO Work Phone: Start: 06-12-2020 End: 06-12-2020 Hepatobilliary Img w/Pharm Int Comments: See Note; NOTES: [facility] Imaging Services [address] [place] [address] Hepatobilliary Img w/Pharm Int MR#: [id number] Acct: [id number] Name: CRISTELA SHAH Rep #: [id number] : 1995 F 24 From: Jesus Mensah PCP: Dr. Rosanna Scales DO Status: REG CLI Study: Hepatobilliary Img w/Pharm Int Date of Exam: 0 06/12/20 Exam# [id number] Ordering Dr: Rosanna Scales DO CLINICAL: 24-year-old female with reported history of right upper quadrant abdominal pain and nausea. RADIONUCLIDE HEPATOBILIARY SCINTIGRAPHY COMPARISON: Abdominal ultrasound report 06/02/2020 FINDINGS: Following the intravenous administration of 5.2 mCi of 99m Tc Mebrofenin, hepatobiliary images reveal: 1. Relatively prompt and homogeneous radiopharmaceutical concentration is noted by a normal sized liver. No parenchymal defects are identified. 2. Gallbladder activity is identified at 10 minutes post radiopharmaceutical administration. 3. Small intestinal tract is observed at 45 minutes following tracer injection. 4. Washout of the radiopharmaceutical by the hepatic parenchyma appears qualitatively normal. Cholecystokinin (0.02 ug/kg) was administered intravenously over a 30-minute period. The post CCK gallbladder ejection fraction calculated at 20 minutes following Cholecystokinin administration was noted to be 95.0 % (normal greater than 35%). During 30 minutes of post CCK imaging, there is no scintigraphic evidence of reflux of the radiotracer into the common hepatic duct or significant refilling of the gallbladder. NM/Hepatobilliary Img w/Pharm Int IMPRESSION: 1. NORMAL 99m Tc Mebrofenin hepatobiliary imaging examination with Cholecystokinin. A. A gallbladder ejection fraction calculated to be greater than 35% following the administration of Cholecystokinin makes the probability of functional hepatobiliary disease (gallbladder and/or sphincter of Oddi dyskinesia) and/or organic hepatobiliary disease (chronic acalculous cholecystitis and/or cystic duct syndrome) to be low. (Brodie Huston et al, Journal of Nuclear Medicine 32:1695, 1991). Electronically Signed: Jesus Willard DO at 22:13 EST Tel , Service support , CC: Dr. Rosanna Scales DO Fuel Cell Designer: Signed Rosanna Scales Work Phone: Start: 06-02-2020 End: 06-06-2020 Gallbladder Comments: See Note; NOTES: [facility] Imaging Services [address] [place] [address] Gallbladder MR#: [id number] Acct: [id number] Name: CRISTELA SHAH Rep #: [id number] : 1995 F 24 From: Boris appiah MD PCP: Dr. Rosanna Scales DO Status: REG CLI Study: Gallbladder Date of Exam: 06/02/20 Exam# [id number] Ordering Dr: Rosanna Scales DO STUDY: ABDOMINAL ULTRASOUND - RIGHT UPPER QUADRANT REASON FOR VISIT: Female, 24 years old rug pain with touch and meals TECHNIQUE: Ultrasound evaluation of the right upper quadrant was performed with real-time and static ricketts-scale imaging. TECHNICAL QUALITY: Adequate. COMPARISON: None. FINDINGS: Liver: The liver measures 15.8 cm. There is normal echogenicity of the liver. The bile ducts are within normal limits. There is hepatic color flow. The direction of portal flow is hepatopetal. There is no demonstrated mass lesion. Gallbladder: Normal distended gallbladder. The gallbladder wall measures 2.5 mm. There is a negative sonographic Pritchard''s sign. There is no pericholecystic fluid. There are no gallstones. Common Bile Duct (C.B.D.): The common bile duct measures 2.9 mm. Pancreas: Normal size of the head, body and tail of the pancreas. There is normal echogenicity of the pancreas. There is no demonstrated pancreatic mass or cyst. Right Kidney: Normal size of the right kidney. The right kidney measures 11.8 cm x 5 cm x 5.1 cm. Normal renal cortex. The right cortex measures 1.5 cm. There is no demonstrated renal mass or cyst. There is no right hydronephrosis. US/Gallbladder IMPRESSION: Normal right upper quadrant ultrasound examination. Electronically Signed: Boris Sierra MD at 10:41 EST , Service support , CC: Dr. Rosanna Scales DO Fuel Cell Designer: Signed Rosanna Scales Work Phone: Start: 05-20-2018 End: 05-20-2018 CTA Chest W/WO Contrast Comments: See Note; NOTES: [facility] Imaging Services [address] [place] [address] CTA Chest W/WO Contrast MR#: [id number] Acct: [id number] Name: FAUSTOCRISTELA J Rep #: [id number] : 1995 F 22 From: Caden Marroquin MD PCP: Rosanna Scales DO Status: REG CLI Study: CTA Chest W/WO Contrast Date of Exam: 05/20/18 Exam# [id number] Ordering Dr: Rosmery Novak DO STUDY: CTA CHEST REASON FOR EXAM: Female, 22 years old. Short of breath and tachycardia RADIATION DOSAGE (If Supplied By Facility): CTDIvol = ( 13.20 ) mGy, DLP = ( 716.30 ) mGycm TECHNIQUE: The examination was performed with the intravenous administration of 100ML ml of Isovue 370 contrast material. Post-processing of the angiographic images was performed, with multiplanar reformation and 3D reconstruction. Individualized dose optimization techniques were used for this CT. COMPARISON: None. FINDINGS: Normal enhancement of the main pulmonary artery and right and left pulmonary arteries. Normal enhancement of the bilateral peripheral pulmonary arteries. There is no demonstrated pulmonary embolism. Normal thoracic aorta and visualized great vessels. There is no demonstrated aortic dissection. Normal heart and pericardium. Normal mediastinum. Normal hilar regions. Normal visualized trachea and bronchi. The lungs are well expanded. Normal pulmonary parenchyma. Normal pleura. Normal chest wall structures. Normal osseous structures. Normal visualized upper abdomen. CT/CTA Chest W/WO Contrast IMPRESSION: Normal CTA chest examination, without a demonstrated pulmonary embolism or arterial dissection. Electronically Signed: Caden Marroquin MD at 19:39 EST , Service support , CC: Rosanna Scales DO; Rosmery Novak DO Fuel Cell Designer: Signed Rosmery Novak Work Phone: Start: 12-21-2017 End: 12-21-2017 Emergency Department Summary Comments: See Note; NOTES: [facility] Medical Records Department [address] [place] [address] Emergency Department Summary 12/21/17 1130 MR#: [id number] Acct: [id number] Name: CRISTELA LAMBERT Rep #: [id number] : 1995 22 From: Bari Miarnda MD PCP: Rosanna Scales DO Status: REG ER - ER Visit Summary Date of Service: 12/21/17 Chief Complaint: Left foot pain History of Present Illness: The patient is a 22 F who stumbled over her left foot while walking her dog yesterday. She has dorsal tenderness of her foot. She has no other injuries no ankle pain. Physical Examination: Otherwise unremarkable exam no ankle tenderness she has slight edema and tenderness over the dorsum of the foot. No proximal fifth metatarsal pain. Neurovascularly intact. Test Results: [X-ray of the foot is negative for fracture] Emergency Department Course and Treatment: [Patient will be discharged with reassurance. She wishes to take nzbx-nnd-ysvtxst analgesia if she needs it, at this time she does not want.] Discharge stable condition Impression: [Left foot contusion] This note was generated with [employer] dictation software. It may contain incorrect words, spelling, and punctuation that were not noted in review of the chart prior to signing ED Disposition - Plan for ED Patient: Disposition: Home or Assisted Living Chief Complaint: Lower Extremity Injury Instructions: ED Contusion Foot Referrals: Rosanna Scales, [Primary Care Provider] - 1 Week if not improving What to do if you have Problems For any increased pain, shortness of breath, bleeding, nausea or vomiting, chest pain, or any unexpected problems, contact your Primary Care Provider. Call [facility] ([phone]) or report to the closest Emergency Room. Call 911 if necessary. 12/21/17 1130 <Electronically signed by Bari Miranda MD> Date Bari Miranda MD Cosigner Signature (If Indicated): Date CC: Rosanna Scales DO Rosanna Fast Start: 12-21-2017 End: 12-21-2017 Foot min 3 Views Comments: See Note; NOTES: [facility] Imaging Services [address] [place] [address] Foot min 3 Views MR#: [id number] Acct: [id number] Name: CRISTELA LAMBERT Rep #: [id number] : 1995 F 22 From: Dm José MD PCP: Rosanna Scales DO Status: REG ER Study: Foot min 3 Views Date of Exam: 12/21/17 Exam# [id number] Ordering Dr: Bari Miranda MD STUDY: X-RAY - LEFT FOOT CLINICAL: Female, 22 years old. Pain TECHNIQUE: 3 view(s) of the foot. COMPARISON: None. FINDINGS: Normal talus, calcaneus, and tarsal bones. Normal visualized subtalar, talonavicular, calcaneocuboid, tarsal and tarsometatarsal articulations. Normal metatarsi. Normal metatarsophalangeal joint of the great toe. Normal tibial and fibular sesamoid bones. Normal interphalangeal joint of the great toe. Normal phalanges of the great toe. Normal second through fifth metatarsophalangeal joints. Normal interphalangeal joints and phalanges of the lesser toes. The soft tissue structures are unremarkable. RAD/Foot min 3 Views IMPRESSION: Normal x-ray examination of the foot. Electronically Signed: Dm José MD at 11:21 EDT Tel , Service support , CC: Rosanna Scales DO; Bari Miranda MD Fuel Cell Designer: Signed Rosanna Scales Start: 10-31-2017 End: 10-31-2017 DIAG MAMM W/CAD, BILAT Comments: See Note; NOTES: [facility] Imaging Services [address] [place], [place] [address] [address] DIAG MAMM W/CAD, BILAT MR#: [id number] Acct: [id number] Name: CRISTELA LAMBERT Rep #: [id number] : 1995 F 21 From: Boris Sierra MD PCP: Rosanna Scales DO Status: REG CLI Study: DIAG MAMM W/CAD, BILAT Date of Exam: 10/31/17 Exam# [id number] Ordering Dr: Beatris Meyers MD MAMMOGRAPHY - BILATERAL DIAGNOSTIC REASON FOR EXAM: Female, 21 years old. One-week history of left breast lump. PERTINENT HISTORY: Non-contributory. TECHNIQUE: Digital bilateral breast basim (3D mammographic acquisition) in the CC and MLO projections. 2-D mediolateral oblique (MLO) and craniocaudad (CC) views of both breasts were obtained. CAD: Full Field Digital Mammography with Computer Added Detection was performed. COMPARISON: Comparison is made with prior sonogram done earlier. FINDINGS: Breast Composition: There are scattered areas of fibroglandular density. There are no dominant masses or suspicious calcifications. No other significant abnormalities are identified. BI/DIAG MAMM W/CAD, BILAT IMPRESSION: Negative diagnostic mammogram. Yearly followup mammogram recommended. (A) ASSESSMENT CATEGORY: BIRADS Category 1: Negative. A letter regarding these results will be sent to the patient by the facility within 30 days. Approximately 10% of breast cancers are not detected by mammography. A normal mammogram should not delay biopsy of a clinically suspicious abnormality. Electronically Signed: Boris Sierra MD at 14:13 EDT Tel [phone], Service support , CC: Beatris Meyers MD; Rosanna Scales DO Fuel Cell Designer: Signed Rosanna Scales Start: 10-31-2017 End: 10-31-2017 Breast Limited Unilateral Comments: See Note; NOTES: [facility] Imaging Services [address] [place] [address] Breast Limited Unilateral MR#: [id number] Acct: [id number] Name: JUSTINO LAMBERTIN Celestino Rep #: [id number] : 1995 F 21 From: Boris Sierra MD PCP: Rosanna Scales DO Status: REG CLI Study: Breast Limited Unilateral Date of Exam: 10/31/17 Exam# [id number] Ordering Dr: Beatris Meyers MD STUDY: ULTRASOUND BREAST - LEFT REASON FOR EXAM: Female, 21 years old. Palpable lump left breast. TECHNIQUE: Axial and longitudinal images of the LEFT breast were performed with a high resolution ultrasound transducer. COMPARISON: None. FINDINGS: LEFT Breast: The medial aspect of the left breast was examined by ultrasound. There is homogeneous fibroglandular tissue. No solid or cystic mass lesion is seen. US/Breast Limited Unilateral IMPRESSION: Unremarkable sonographic examination of the medial aspect of the left breast. ASSESSMENT CATEGORY: BIRADS Category 1: Negative. A letter regarding these results will be sent to the patient by the facility within 30 days. Electronically Signed: Boris Sierra MD at 14:09 EDT Tel [phone], Service support , CC: Beatris Meyers MD; Rosanna Scales DO Fuel Cell Designer: Signed Rosanan Scales Start: 05-12-2017 End: 05-12-2017 12 lead ECG Comments: See Note; NOTES: [facility] Cardiovascular Services [address] [place] [address] 12 Lead EKG 05/10/17 1356 MR#: [id number] Acct: [id number] Name: JUSTINO LAMBERTIN Celestino Rep #: [id number] : 1995 21 From: Bari Meier MD Attending Dr: Status: DEP ER Ordering Dr: Rafa Shannon MD Date: 05/10/17 Location: ED Sex: F C Admitted: Test Reason : SOB Blood Pressure : / mmHG Vent. Rate : 109 BPM Atrial Rate : 109 BPM P-R Int : 126 ms QRS Dur : 080 ms QT Int : 336 ms P-R-T Axes : 028 059 003 degrees QTc Int : 452 ms Sinus tachycardia Nonspecific T wave abnormality Confirmed by HENNA GARCIA, BARI ([id number]), mapping editor VIDHYA ROGERS ([id number]) on 05/12/2017 1:18:15 PM Referred By: Confirmed By:BARI MEIER MD 05/12/17 1318 Date Bari Meier MD CC: Rosanna Scales DO Signed Rosanna Scales Start: 05-10-2017 End: 05-10-2017 Emergency Department Summary Comments: See Note; NOTES: [facility] Medical Records Department [address] [place] [address] Emergency Department Summary 05/10/17 1455 MR#: [id number] Acct: [id number] Name: CRISTELA LAMBERT Rep #: [id number] : 1995 21 From: Rafa Shannon MD PCP: Rosanna Scales DO Status: REG ER - ER Visit Summary Date of Service: 05/10/17 Chief Complaint: Pleuritic chest pain, hoarse voice, cough History of Present Illness: The patient is a 21 F who became ill 6 days ago with complaint of sore throat, nasal congestion, cough. She was seen by her doctor and treated with nebulizer, prednisone and antibiotic. She was seen on Friday. She denies headache, photophobia or stiffness of her neck. She does report change in voice but denies difficulty breathing or swallowing. She does report anterior chest pain that is pleuritic. She has no history of BTE or any risk factors other than hormonal therapy. She denies any leg pain, swelling discoloration. She does report increased throat pain with swallowing. Physical Examination: No signs remarkable for blood pressure 164/105, heart rate of 129 and the remainder of her vitals are normal. She is not febrile nor is she hypoxic. HEENT exam is remarkable for minimal nasal congestion with boggy nasal mucosa. Posterior pharynx reveals erythema of the anterior tonsillar pillars. Uvula is midline. Tongue is midline. Trachea is midline. There is expiratory stridor noted with forced expiration only. Heart is rapid and regular. There is no wheezing noted nor is there any rhonchi. Patient has no egophony or increased vocal fremitus. Abdomen is soft nontender. Test Results: EKG per nursing protocol reveals a sinus tachycardia rate of 109, otherwise normal. Soft tissue x-ray the neck reveals normal epiglottitis. There is nose lingular tonsillitis. There is no increase in prevertebral space. Emergency Department Course and Treatment: Decadron 10 mg p.o. Discontinue nebulizers since this is not a lower airway problem. Treatment Plan: Tinea nebulizer and follow-up with Dr. Johnson if no improvement in 3-5 days. Disposition: Discharged to home Impression: 1. Acute laryngitis/tracheitis 2. Pleuritic chest pain secondary to acute viral illness 3. Sinus tachycardia documented on EKG This note was generated with [employer] dictation software. It may contain incorrect words, spelling, and punctuation that were not noted in review of the chart prior to signing ED Disposition - Plan for ED Patient: Disposition: Home or Assisted Living Chief Complaint: Shortness of Breath Instructions: ED Laryngitis Referrals: Fast,Rosanna, DO [Primary Care Provider] - 3-5 Days if not improving Additional Instructions: You can discontinue the nebulizer since this is a upper airway problem. What to do if you have Problems For any increased pain, shortness of breath, bleeding, nausea or vomiting, chest pain, or any unexpected problems, contact your Primary Care Provider. Call [facility] ([phone]) or report to the closest Emergency Room. Call 911 if necessary. 05/10/17 1506 <Electronically signed by Rafa Shannon MD> Date Rafa Shannon MD Cosigner Signature (If Indicated): Date CC: Rosanna Wu Start: 05-10-2017 End: 05-10-2017 Neck for Soft Tissue Comments: See Note; NOTES: [facility] Imaging Services [address] [place] [address] Neck for Soft Tissue MR#: [id number] Acct: [id number] Name: CRISTELA LAMBERT Rep #: [id number] : 1995 F 21 From: Chavez Gallagher DO PCP: Rosanna Scales DO Status: REG ER Study: Neck for Soft Tissue Date of Exam: 05/10/17 Exam# [id number] Ordering Dr: Rafa Shannon MD STUDY: X-RAY - SOFT TISSUE NECK REASON FOR EXAM: Female, 21 years old. Change in voice with throat pain TECHNIQUE: 2 view(s) of the neck were obtained. COMPARISON: None. FINDINGS: Normal visualized nasopharynx, oropharynx, hypopharynx. Normal epiglottis. Normal visualized subglottic tracheal air column. Normal prevertebral soft tissue structures. Normal visualized osseous structures. The soft tissue structures are unremarkable. RAD/Neck for Soft Tissue IMPRESSION: Normal x-ray soft tissue neck. Electronically Signed: Chavez Gallagher DO at 15:10 EST Tel , Service support , CC: Rosanna Scales DO; Rafa Shannon MD Fuel Cell Designer: Signed Rosanna Scales Start: 05-06-2017 End: 05-06-2017 Chest PA and Lateral Comments: See Note; NOTES: [facility] Imaging Services [address] [place] [address] Chest PA and Lateral MR#: [id number] Acct: [id number] Name: JUSTINO LAMBERTIN Celestino Rep #: [id number] : 1995 F 21 From: Boris Sierra MD PCP: Rosanna Scales DO Status: REG CLI Study: Chest PA and Lateral Date of Exam: 05/06/17 Exam# [id number] Ordering Dr: Rosanna Scales DO STUDY: X-RAY CHEST REASON FOR EXAM: Female, 21 years old. Shortness of breath. History of asthma. TECHNIQUE: PA and lateral views of the chest. COMPARISON: Comparison is made with prior study dated April 12, 2016. FINDINGS: The lungs are clear and expanded. There is no demonstrated pleural abnormality. Normal size heart. Normal mediastinum and billy. Normal visualized pulmonary arteries. Normal visualized aortic arch and descending thoracic aorta. Normal visualized thoracic spine. Normal visualized ribs, clavicles, and shoulders. There is no demonstrated abnormality of the visualized soft tissue structures of the upper abdomen. RAD/Chest PA and Lateral IMPRESSION: Normal x-ray examination of the chest. Electronically Signed: Boris Sierra MD at 14:19 EST Tel [phone], Service support , CC: Rosanna Scales DO Fuel Cell Designer: Signed Rosanna Scales Work Phone: Start: 03-28-2017 End: 03-28-2017 Emergency Department Summary Comments: See Note; NOTES: [facility] Medical Records Department [address] [place] [address] [place] [address] Emergency Department Summary 03/28/17 0052 MR#: [id number] Acct: [id number] Name: RAYSA LAMBERTYLIN Celestino Rep #: [id number] : 1995 21 From: Jamaal Haskins MD PCP: Rosanna Scales DO Status: DEP ER - ER Visit Summary Date of Service: 03/28/17 Chief Complaint: Nausea, vomiting, abdominal pain History of Present Illness: The patient is a 21 F with recent diagnosis of mononucleosis last week presents with rather sudden onset sharp stabbing epigastric pain with nausea and vomiting. Patient states that she was diagnosed with mono just over a week ago. She states she has actually been feeling better. She states that her primary care was concerned because her spleen still felt large. Tonight, she began to have some sharp pain in the midepigastric area. It does not go to her back. She has had no trauma. She denies feeling weak or lightheaded. She states she has had about 10 episodes of emesis. There is been no blood in the emesis. She denies any fever, but has had some chills at night but she states this is normal for her during her illness. She has no prior history of abdominal surgery. Physical Examination: Vital signs reviewed General: Well-nourished, well-developed Head: Normocephalic, atraumatic Eyes: Pupils equal and reactive, extraocular muscles intact Neck, supple, no lymphadenopathy Heart: Regular rate and rhythm Respiratory: No distress, clear bilaterally Abdomen: Soft, mildly tender in the midepigastric area, nondistended, no peritoneal signs Back: Nontender Extremities: Nontender, no edema, no cords Skin: Normal color no rash Neuro: Alert and oriented, no focal or lateralizing deficits Test Results: During labs show mild leukocytosis but are otherwise unremarkable. LFTs are normal. Urine shows a large amount of epithelial cells, but no infection. Emergency Department Course and Treatment: The patient has only minimal tenderness in the midepigastric area. There is no rebound or guarding. She is not tender over the spleen. She has had no trauma. She was initially tachycardic, but with fluids and antiemetics her repeat heart rate is in the 80s. Screening labs are relatively unremarkable. She does have a mild leukocytosis, but I do feel is likely reactive given her vomiting. With Zofran and Toradol, her symptoms have improved. On reevaluation her abdomen is soft and nontender. She is able to tolerate oral fluids. At this time, I do for the patient is safe for discharge. She was counseled on concerning symptoms and reasons to return. I will prescribe her some Zofran for symptom control, but did university counselor her that if her pain worsens or changes she should return to the emergency department or follow-up with her primary care for reevaluation in the next 24 hours. Treatment Plan: [] Disposition: Discharge Impression: 1. Nausea and vomiting This note was generated with [employer] dictation software. It may contain incorrect words, spelling, and punctuation that were not noted in review of the chart prior to signing ED Disposition - Plan for ED Patient: Chief Complaint: Nausea/Vomiting Instructions: ED Nausea Vomiting Prescriptions: Ondansetron [Zofran Odt] 4 mg PO Q8H PRN PRN #10 tab PRN Reason: Nausea Famotidine [Pepcid] 20 mg PO BID #28 tab Referrals: Rosanna Scales DO [Primary Care Provider] - What to do if you have Problems For any increased pain, shortness of breath, bleeding, nausea or vomiting, chest pain, or any unexpected problems, contact your Primary Care Provider. Call [facility] ([phone]) or report to the closest Emergency Room. Call 911 if necessary. 03/28/17 0418 <Electronically signed by Jamaal Haskins MD> Date Jamaal Haskins MD Cosigner Signature (If Indicated): Date CC: Rosanna Manuel DO Rosanna Fast Start: 12-14-2016 End: 12-14-2016 Pelvic (Non ) Comments: See Note; NOTES: [facility] Imaging Services [address] [place] [address] Pelvic (Non ) MR#: [id number] Acct: [id number] Name: CRISTELA LAMBERT Rep #: [id number] : 1995 F 21 From: Caden Marroquin MD PCP: Rosanna Scales DO Status: REG CLI Study: Pelvic (Non ) Date of Exam: 12/14/16 Exam# [id number] Ordering Dr: Beatris Meyers MD STUDY: ULTRASOUND OF THE FEMALE PELVIS - COMPLETE REASON FOR EXAM: Female, 21 years old. Abnormal bleeding LMP: TECHNIQUE: Transabdominal TECHNICAL QUALITY: Adequate. COMPARISON: November 27, 2016 FINDINGS: The uterus is anteverted and is in a midline position. The uterus measures 7.5 x 5.1 x 3.3 cm. Normal uterine cervix. The endometrium measures 2.2 mm in thickness, and is hyperechoic. There is no demonstrated endometrial mass. There is a small fibroid measuring 9 x 8 x 8 mm. I.U.D. - The patient does not have an I.U.D. The right ovary is visualized. The right ovary measures 2.6 x 1.6 x 1.2 cm. There is no right ovarian cyst or ovarian mass. There is no visualized right adnexal mass or complex lesion. There is normal arterial and normal venous vascularity. The left ovary is visualized. The left ovary measures 4 x 2.4 x 1.4 cm. Small left ovarian cyst measuring 11 x 10 x 9 mm. There is no visualized left adnexal mass or complex lesion. There is normal arterial and normal venous vascularity. There is no fluid in the cul-de-sac. Left ovarian cyst has decreased in size since prior study The pre void volume of the bladder was ml. The post void volume of the bladder was ml. US/Pelvic (Non ) IMPRESSION: Small intrauterine fibroid. Left ovarian cyst which has decreased in size since previous study otherwise no significant change Electronically Signed: Caden Marroquin MD at 19:07 EDT , Service support , CC: Beatris Meyers MD; Rosanna Scales DO Fuel Cell Designer: Signed Rosanna Scales Start: 11-27-2016 End: 11-27-2016 Pelvic (Non ) Comments: See Note; NOTES: [facility] Imaging Services [address] [place] [address] Pelvic (Non ) MR#: [id number] Acct: [id number] Name: CRISTELA LAMBERT Rep #: [id number] : 1995 F 20 From: Boris Sierra MD PCP: Rosanna Scales DO Status: REG CLI Study: Pelvic (Non ) Date of Exam: 11/27/16 Exam# [id number] Ordering Dr: Rosanna Scales DO STUDY: ULTRASOUND OF THE FEMALE PELVIS - COMPLETE REASON FOR EXAM: Female, 20 years old. Pelvic pain. LMP: November 14, 2016. TECHNIQUE: Transabdominal TECHNICAL QUALITY: Adequate. COMPARISON: None. FINDINGS: The uterus is anteverted and is in a midline position. The uterus measures 8.9 cm x 4.2 cm x 3.0 cm. Normal uterine cervix. The endometrium measures 2.4 mm in thickness, and is hyperechoic. There is no demonstrated endometrial mass. There is an 8 mm x 8 mm x 9 mm fibroid in the fundal portion of the uterus. I.U.D. - The patient does not have an I.U.D. The right ovary is visualized. The right ovary measures 2.0 cm x 2.5 cm x 1.4 cm. There is no right ovarian cyst or ovarian mass. There is no visualized right adnexal mass or complex lesion. There is normal arterial and normal venous vascularity. The left ovary is visualized. The left ovary measures 3.1 cm x 2.8 cm x 1.9 cm. There is a 2.3 cm x 2.3 cm x 1.2 cm left ovarian cyst. There is no visualized left adnexal mass or complex lesion. There is normal arterial and normal venous vascularity. There is no fluid in the cul-de-sac. The pre void volume of the bladder was 870 ml. US/Pelvic (Non ) IMPRESSION: Small right ovarian cyst. Subcentimeter fibroid in the fundal portion of the uterus. Electronically Signed: Boris Sierra MD at 13:52 EDT Tel [phone], Service support , CC: Rosanna Scales DO Fuel Cell Designer: Signed Rosanna Scales Work Phone: Start: 04-12-2016 End: 04-12-2016 Chest PA and Lateral Comments: See Note; NOTES: [facility] Imaging Services [address] [place] [address] Verdana 4d Chest PA and Lateral MR#: [id number] Acct: [id number] Name: CRISTELA LAMBERT Rep #: [id number] : 1995 F 20 From: Wilber Lovett MD PCP: Rosanna Scales DO Status: REG CLI Study: Chest PA and Lateral Date of Exam: 04/12/16 Exam# [id number] Ordering Dr: Rosanna Scales DO STUDY: X-RAY CHEST REASON FOR EXAM: Female, 20 years old. Fever/cough TECHNIQUE: PA and lateral views of the chest. COMPARISON: None. FINDINGS: The lungs are clear and expanded. There is no demonstrated pleural abnormality. Normal size heart. Normal mediastinum and billy. Normal visualized pulmonary arteries. Normal visualized aortic arch and descending thoracic aorta. Normal visualized thoracic spine. Normal visualized ribs, clavicles, and shoulders. There is no demonstrated abnormality of the visualized soft tissue structures of the upper abdomen. RAD/Chest PA and Lateral IMPRESSION: Normal x-ray examination of the chest. Electronically Signed: Rico Lovett MD at 8:19 EST Tel , Service support [phone], CC: Rosanna Scales DO Fuel Cell Designer: Signed Rosanna Scales Work Phone: Start: 06-06-2014 End: 06-06-2014 Echocardiogram Complete Comments: See Note; NOTES: [facility] Cardiovascular Services [address] [place] [address] Echo Complete 06/06/14 1316 MR#: [id number] Acct: [id number] Name: CRISTELA LAMBERT Rep #: [id number] : 1995 18 From: Russ Alford MD Attending Dr: Rosanna Scales DO Status: REG CLI Ordering Dr: Rosanna Scales DO Date: 06/06/14 Location: [facility] Sex: F C Admitted: Procedure This was a 2D Doppler, Color Flow transthoracic echocardiogram. The exam was diagnostic. Exam performed in department. Left Ventricle Normal LV size. The estimated ejection fraction is 60 %. No regional wall motion abnormalities noted. Right Ventricle Normal RV size. Normal systolic function. Atria Normal left atrium. Normal right atrium. Mitral Valve Equivocal mitral valve prolapse. Tricuspid Valve Normal tricuspid valve. Aortic Valve Normal aortic valve. Trisinus/trileaflet aortic valve. Pulmonic Valve Normal pulmonic valve. Great Vessels Normal aortic root. The pulmonary artery is normal size. Normal inferior vena cava. Pericardium/Pleural No pericardial effusion. MMode/2D Measurements AND Calculations LVIDd: 4.3 cm IVSd: 0.84 cm Ao root diam: 2.6 cm LAV(MOD-bp): 33.7 ml LVIDs: 2.7 cm LVPWd: 1.0 cm Ao root area: 5.3 cm2 LAV(MOD-bp) Indexed: 17.6 ml/m2 RVDd: 3.8 cm FS: 36.8 % LA dimension: 2.4 cm LAV(MOD-sp2): 35.6 ml LAV(MOD-sp4): 30.4 ml LA A4 area: 13.4 cm2 RA A4 area: 13.6 cm2 Doppler Measurements AND Calculations MV E max bebo: Lat Peak E' Bebo: Med Peak E' Bebo: Ao V2 max: 114.5 cm/sec 18.9 cm/sec 18.2 cm/sec 127.7 cm/sec MV A max bebo: Ao max P.5 mmHg 52.3 cm/sec MV E/A: 2.2 LV V1 max: 122.7 cm/sec PA V2 max: 117.1 cm/sec E/E' lat: 6.0 E /E' med: 6.3 LV V1 max P.0 mmHg PA max P.5 mmHg Interpretation Summary Normal LV size. The estimated ejection fraction is 60 %. No regional wall motion abnormalities noted. Equivocal mitral valve prolapse. Ordering Physician: Rosanna Scales Performed By: ERLIN Jones 06/06/141606 Date Russ Alford MD CC: Rosanna Scales DO Date Dictated: 06/06/14 1316 Date Transcribed: 06/06/141606 Fuel Cell Designer: Signed Rosanna Scales Work Phone: Group B Streptococcus Culture Dr. Rosanna Scales Work Phone: H/O: section Status pos t section Dr. Rosanna Scales Work Phone: H/O: section Hx of sect ion Dr. Rosanna Scales DO Work Phone: Comment on above: Gestational HTN & breech. C/S 12/03/24 JV . H/O: section Hx of sect ion Dr. Do Frankel MD H/O: section Hx of sect ion Marcela Espana CNM H/O: section Hx of sect ion Dr. Gay Gan DO H/O: section Hx of sect ion Dr. Gay Gan DO H/O: section Hx of sect ion Dr. Do Frankel MD H/O: section Hx of sect ion Jaqueline Montgomery APPRENTICE ELECTRICIAN-C H/O: section Hx of sect ion Jaqueline Foster APPRENTICE ELECTRICIAN-C H/O: section Hx of sect ion Jaqueline Montgomery APPRENTICE ELECTRICIAN-C H/O: section Status pos t section Dr. Rosanna Scales DO Work Phone: Comment on above: lanie 32 weeks 1 day- JV H/O: section Hx of sect ion Dr. Gay Gan DO H/O: section Status pos t section Dr. Gay Gan DO None Nany Manchak None Nany Manchak None Temitope Madhavi None Nany Manchak None Nany Manchak None Radha Cross None Nany Manchak ENVIRONMENTAL COMMUNICATIONS SPECIALIST None Nany Manchak ENVIRONMENTAL COMMUNICATIONS SPECIALIST None (qualifier value) DANIELLE YOO MD Urine culture Dr. Rosanna Scales Work Phone: Urine culture Dr. Rosanna Scales Work Phone: Nany Gini ENVIRONMENTAL COMMUNICATIONS SPECIALIST Plan of Treatment Date Care Activity Detail Author Start: 07-10-2032 Urine microalbumin profile DTaP,Tdap,Td Vaccine (8 - Td or Tdap) [facility] Start: 11-10-2024 Complete blood count [facility] Start: 11-10-2024 Comprehensive metabo lic 2000 panel - Serum or Plasma [facility] Start: 10-29-2024 Patient discharge [facility] Start: 10-28-2024 Administration of medication [facility] Start: 10-28-2024 Ambulation therapy management [facility] Start: 10-28-2024 Application of device W [facility] Start: 10-28-2024 End: 10-28-2024 Application of intermittent pneumatic compression device [facility] Start: 10-28-2024 Assessment of risk o f venous thromboembolism [facility] Start: 10-28-2024 Catheterization of vein [facility] Start: 10-28-2024 Continuous pulse oximetry [facility] Start: 10-28-2024 Deep breathing and coughing exercises [facility] Start: 10-28-2024 Exercises [facility] Start: 10-28-2024 Measuring intake and output [facility] Start: 10-28-2024 Notification of physician [facility] Start: 10-28-2024 Oxygen therapy [facility] Start: 10-28-2024 Procedure discontinued [facility] Start: 10-28-2024 Provision of activit y privileges [facility] Start: 10-28-2024 Skin care [facility] Start: 10-28-2024 Vital signs measurements [facility] Start: 10-28-2024 Wound care [facility] Start: 10-28-2024 [facility] Start: 10-28-2024 Application of abdom inal corset [facility] Start: 10-28-2024 Admission procedure [facility] Start: 10-28-2024 Consultation [facility] Start: 10-28-2024 [facility] Start: 09-30-2024 CBC W Auto Different ial panel - Blood [facility] Start: 09-30-2024 Measurement of gluco se 2 hours after glucose challenge for glucose tolerance test [facility] Start: 09-30-2024 Serologic test for syphilis [facility] Start: 09-30-2024 [facility] Start: 12-21-2023 Influenza vaccination Influenz a Vaccine (Season Ended) [facility] Start: 04-21-2023 Behavioral Health Screening Behavioral Health Screening [facility] Start: 12-20-2022 Covid-19 Vaccine ( season) Covid-19 Vaccine () [facility] Start: 12-05-2022 Patient discharge [facility] Start: 09-07-2022 Patient discharge [facility] Start: 09-05-2022 Application of abdom inal corset [facility] Start: 09-05-2022 [facility] Start: 09-05-2022 Consultation [facility] Start: 09-04-2022 End: 09-05-2022 [facility] Start: 09-04-2022 Notification of physician [facility] Start: 09-04-2022 Administration of medication [facility] Start: 09-04-2022 Ambulation therapy management [facility] Start: 09-04-2022 Application of device W [facility] Start: 09-04-2022 End: 09-04-2022 Application of intermittent pneumatic compression device [facility] Start: 09-04-2022 Assessment of risk o f venous thromboembolism [facility] Start: 09-04-2022 Catheterization of vein [facility] Start: 09-04-2022 Deep breathing and coughing exercises [facility] Start: 09-04-2022 Exercises [facility] Start: 09-04-2022 Fluid restriction [facility] Start: 09-04-2022 Incentive spirometry [facility] Start: 09-04-2022 Measuring intake and output [facility] Start: 09-04-2022 End: 09-04-2022 Notification of physician [facility] Start: 09-04-2022 Procedure discontinued [facility] Start: 09-04-2022 Provision of activit y privileges [facility] Start: 09-04-2022 Vital signs measurements [facility] Start: 09-04-2022 Wound care [facility] Start: 09-04-2022 Application of abdom inal corset [facility] Start: 09-04-2022 Admission procedure [facility] Start: 09-04-2022 Application of intermittent pneumatic compression device [facility] Start: 07-24-2022 Patient discharge [facility] Start: 07-23-2022 Ultrasound scan for growth [facility] Start: 07-23-2022 Nonstress test [facility] Start: 07-23-2022 Obstetric monitoring [facility] Start: 07-23-2022 Vital signs measurements [facility] Start: 07-23-2022 [facility] Start: 07-23-2022 Patient discharge [facility] Start: 07-23-2022 [facility] Start: 06-27-2022 Patient referral [facility] Work Phone: Start: 03-04-2022 Liquid based cervica l cytology screening [facility] Work Phone: Start: 01-29-2022 Procedure [facility] Work Phone: Start: 01-29-2022 Gonadotropin chorion ic quantitative HCG Quantitative (43484) [facility] Work Phone: Comment on above: send copy to [facility] Start: 07-01-2021 COVID-19 VACCINE (3 - Booster for Pfizer series) COVID-19 VACCINE (3 - Booster for Pfizer series) [facility] Start: 01-15-2021 Procedure [facility] Work Phone: Start: 01-12-2021 Procedure [facility] Work Phone: Start: 12-20-2020 Influenza vaccination INFLUENZA (#1) [facility] Start: 06-02-2020 Gonadotropin chorion ic quantitative [facility] Work Phone: Start: 06-02-2020 Amylase [Catalytic activity/Vol] AMYLASE (17014) [facility] Work Phone: Comment on above: stat Start: 06-02-2020 Assay of amylase [facility] Work Phone: Comment on above: stat Start: 06-02-2020 Assay of lipase [facility] Work Phone: Comment on above: stat Start: 06-02-2020 Blood count complete auto&auto difrntl wbc [facility] Work Phone: Comment on above: stat Start: 06-02-2020 Comprehensive metabo lic panel [facility]; [facility] Work Phone: Comment on above: stat Start: 07-18-2019 Procedure [facility] Work Phone: Start: 06-09-2019 Procedure [facility] Work Phone: Start: 09-30-2018 Cul bact xcpt urine blood/stool aerobic isol ANNIE CULTURE-OTHER (02493) [facility] Work Phone: Start: 09-30-2018 Blood count complete auto&auto difrntl wbc CBC, Platelets & Auto Diff (22131) [facility] Work Phone: Start: 09-30-2018 Antibody trina-bar r eb virus early antigen ea EBV Panel (28638) [facility] Work Phone: Start: 09-30-2018 Sedimentation rate r bc non-automated SED RATE ERYTHROCYTE (21564) [facility] Work Phone: Start: 09-30-2018 Protein mass conc C-REACT PROT HIGH SENS(hsCRP) (30813) [facility] Work Phone: Start: 09-30-2018 Procedure [facility] Work Phone: Start: 08-03-2018 Throat culture [facility] Work Phone: Start: 08-03-2018 Procedure [facility] Work Phone: Start: 08-03-2018 Blood count complete auto&auto difrntl wbc [facility] Work Phone: Start: 08-03-2018 Antibody trina-bar r eb virus early antigen ea [facility] Work Phone: Start: 05-20-2018 Procedure [facility] Work Phone: Start: 05-20-2018 Assay of thyroid stimulating hormone tsh [facility] Work Phone: Comment on above: stat Start: 05-20-2018 Thyrotropin Qn TSH (01835) [facility] Work Phone: Comment on above: stat Start: 05-20-2018 Blood count complete auto&auto difrntl wbc [facility] Work Phone: Comment on above: stat Start: 05-20-2018 Comprehensive metabo lic panel [facility] Work Phone: Comment on above: stat Start: 05-20-2018 Fibrin dgradj produc ts d-dimer quantitative [facility] Work Phone: Comment on above: stat Start: 03-09-2018 Procedure [facility] Work Phone: Start: 02-09-2018 Urine microalbumin profile DTAP,TDAP,TD (7 - Td or Tdap) [facility] Start: 11-10-2017 Cobalamin (Vitamin B 12) mass conc [facility] Work Phone: Start: 11-10-2017 Cyanocobalamin vitam in b-12 [facility] Work Phone: Start: 11-10-2017 Assay of thyroid stimulating hormone tsh [facility] Work Phone: Start: 11-10-2017 Thyrotropin Qn TSH (39143) [facility] Work Phone: Start: 11-10-2017 Blood count complete auto&auto difrntl wbc [facility] Work Phone: Start: 11-10-2017 Comprehensive metabo lic panel [facility] Work Phone: Start: 11-10-2017 25 hydroxy includes fractions if performed [facility] Work Phone: Start: 11-10-2017 Procedure [facility] Work Phone: Start: 06-16-2017 Procedure Education [facility] Work Phone: Start: 06-04-2017 Procedure [facility] Work Phone: Start: 05-06-2017 Procedure [facility] Work Phone: Start: 03-28-2017 Provider Instruction s for Treatment [facility] Work Phone: Start: 03-28-2017 Blood count manual c ell count each [facility] Work Phone: Comment on above: stat Start: 03-28-2017 Sedimentation rate r bc non-automated [facility] Work Phone: Comment on above: stat Start: 03-28-2017 Comprehensive metabo lic panel [facility] Work Phone: Comment on above: stat Start: 03-28-2017 Ova&parasites direct smears concentration & id [facility] Work Phone: Start: 03-28-2017 Leukocyte assmt feca l qual/semiquantitative [facility] Work Phone: Start: 03-28-2017 Culture bacterial an y source anaerobic iso&id [facility] Work Phone: Start: 03-28-2017 Cul bact stool aerob ic isol salmonella&shigell [facility] Work Phone: Start: 03-26-2017 Procedure [facility] Work Phone: Start: 03-19-2017 Procedure Education [facility] Work Phone: Start: 02-19-2017 Procedure Education [facility] Work Phone: Start: 02-05-2017 Procedure Education [facility] Work Phone: Start: 01-22-2017 Procedure Education [facility] Work Phone: Start: 01-03-2017 Procedure Education [facility] Work Phone: Start: 12-03-2016 Procedure [facility] Work Phone: Start: 11-18-2016 Procedure [facility] Work Phone: Start: 04-12-2016 Procedure [facility] Work Phone: Start: 02-27-2016 Procedure [facility] Work Phone: Start: 02-05-2016 Procedure [facility] Work Phone: Start: 02-05-2016 Provider Instruction s for Treatment [facility] Work Phone: Start: 02-05-2016 Cytp cerv/vag auto t hin layer prep mnl screen [facility] Work Phone: Start: 2014 PAP TESTING PAP TESTING [facility] Start: 2014 Screening for malign ant neoplasm of cervix Pap Testing [facility] Start: 09-09-2014 Patient Education [facility] Work Phone: Start: 09-09-2014 Provider Instruction s for Treatment [facility] Work Phone: Start: 09-09-2014 Cul bact xcpt urine blood/stool aerobic isol [facility] Work Phone: Start: 05-10-2014 Procedure Education [facility] Work Phone: Start: 05-10-2014 Assay of thyroid stimulating hormone tsh [facility] Work Phone: Start: 05-10-2014 Thyrotropin Qn TSH (95960) [facility] Work Phone: Start: 04-27-2012 Patient Education [facility] Work Phone: Start: 01-17-2012 Patient Education [facility] Work Phone: Start: 01-17-2012 Provider Instruction s for Treatment [facility] Work Phone: Start: 12-01-2011 HEPATITIS C SCREENING HEPATITIS C [facility] Start: 12-01-2011 Hepatitis C screening Hepatitis C [facility] Start: 12-01-2011 HIV SCREENING HIV SCREENING [facility] Start: 12-01-2011 HIV screening HIV Screening [facility] Start: 2005 Adult depression screening assessment DEPRESSION SCREENING [facility] Alanine aminotransfe rase [Enzymatic activity/volume] in Serum or Plasma [facility] Albumin [Mass/volume ] in Serum or Plasma [facility] Alkaline phosphatase [Enzymatic activity/volume] in Serum or Plasma [facility] Anion gap in Serum o r Plasma [facility] Bilirubin, total measurement [facility] BUN/Creatinine ratio [facility] Calcium [Mass/volume ] in Serum or Plasma [facility] Carbon dioxide, tota l [Moles/volume] in Central venous blood [facility] CBC W Auto Different ial panel - Blood [facility] Work Phone: Creatinine [Mass/vol ume] in Serum or Plasma [facility] Erythrocyte mean corpuscular volume determination [facility] Erythrocyte mean corpuscular volume determination [facility] Glucose [Mass/volume ] in Serum or Plasma [facility] Glucose [Mass/volume ] in Serum or Plasma --1 hour post 50 g glucose PO [facility] Work Phone: Hematocrit [Volume Fraction] of Blood [facility] Hematocrit [Volume Fraction] of Blood [facility] Hemoglobin [Mass/vol ume] in Blood [facility] Hemoglobin [Mass/vol ume] in Blood [facility] Hepatitis B surface antigen measurement [facility] Work Phone: Hepatitis C antibody measurement [facility] Work Phone: HIV 1+2 Ab+HIV1 p24 Ag [Presence] in Serum or Plasma by Immunoassay [facility] Work Phone: Leukocytes [#/volume ] in Blood [facility] Leukocytes [#/volume ] in Blood [facility] Mean corpuscular hemoglobin concentration determination [facility] Mean corpuscular hemoglobin concentration determination [facility] Mean corpuscular hemoglobin determination [facility] Mean corpuscular hemoglobin determination [facility] Measurement of renal function [facility] Neutrophil count [facility] Neutrophil percent differential count [facility] Path report.final Dx Spec [facility] Work Phone: Patient referral [facility] Work Phone: Platelets [#/volume] in Blood [facility] Platelets [#/volume] in Blood [facility] Potassium measurement [facility] Red blood cell count [facility] Red blood cell count [facility] Red cell distributio n width determination [facility] Red cell distributio n width determination [facility] Rubella IgG measurement [facility] Work Phone: Serum chloride measurement [facility] Sodium measurement [facility] Total protein measurement [facility] Treponema sp Ab [Presence] in Serum [facility] Work Phone: Ultrasonography for antepartum monitoring of fetus [facility] Ultrasonography for antepartum monitoring of fetus [facility] Ultrasound scan for growth [facility] Ultrasound scan for growth [facility] Urea nitrogen [Mass/volume] in Serum or Plasma [facility] Work Phone: [facility] Work Phone: [facility] Work Phone: [facility] Work Phone: [facility] Work Phone: [facility] Work Phone: [facility] Work Phone[facility] Work Phone: [facility] Work Phone: [facility] Work Phone[facility] Work Phone: [facility] Work Phone: [facility] Work Phone: [facility] Work Phone: [facility] Work Phone: [facility] Work Phone[facility] Work Phone: [facility] Work Phone: [facility] Work Phone: [facility] Work Phone: [facility] Work Phone: [facility] Work Phone: [facility] Medicine; [facility] Work Phone: [facility]; [facility] Work Phone: [facility]; [facility] Work Phone: [facility] – [place], [place] Immunizations Immunization Date Immunization Notes Care Provider Fa [facility] 09-30-2024 tetanus toxoid, redu bibiana diphtheria toxoid, and acellular pertussis vaccine, adsorbed Dr. Rosanna Scales DO Work Phone: [facility] 07-10-2022 tetanus toxoid, redu bibiana diphtheria toxoid, and acellular pertussis vaccine, adsorbed Dr. Rosanna Scales Work Phone: [facility] 03-29-2009 influenza virus vaccine, unspecified formulation Salud Francis JEWEL HOLE DRILLER.NUCLEAR PLANT TECHNICAL ADVISOR Work Phone: [facility] Work Phone: 02-10-2008 influenza virus vaccine, unspecified formulation Salud Francis JEWEL HOLE DRILLER.NUCLEAR PLANT TECHNICAL ADVISOR Work Phone: [facility] 02-10-2008 Meningococcal, MCV4, unspecified conjugate formulation(groups A, C, Y and W-135) Salud Francis JEWEL HOLE DRILLER.NUCLEAR PLANT TECHNICAL ADVISOR Work Phone: [facility] 02-10-2008 tetanus toxoid, redu bibiana diphtheria toxoid, and acellular pertussis vaccine, adsorbed Salud Francis JEWEL HOLE DRILLER.NUCLEAR PLANT TECHNICAL ADVISOR Work Phone: [facility] 02-22-2006 influenza virus vaccine, unspecified formulation Salud Francis JEWEL HOLE DRILLER.NUCLEAR PLANT TECHNICAL ADVISOR Work Phone: [facility] Work Phone: 02-25-2004 influenza virus vaccine, unspecified formulation Salud Francis JEWEL HOLE DRILLER.NUCLEAR PLANT TECHNICAL ADVISOR Work Phone: [facility] Work Phone: 04-01-2003 influenza virus vaccine, unspecified formulation Salud Francis JEWEL HOLE DRILLER.NUCLEAR PLANT TECHNICAL ADVISOR Work Phone: [facility] Work Phone: 10-11-1998 diphtheria, tetanus toxoids and acellular pertussis vaccine Salud Francis JEWEL HOLE DRILLER.NUCLEAR PLANT TECHNICAL ADVISOR Work Phone: [facility] Work Phone: 10-11-1998 measles, mumps and rubella virus vaccine Salud Francis JEWEL HOLE DRILLER.NUCLEAR PLANT TECHNICAL ADVISOR Work Phone: [facility] Work Phone: 10-11-1998 trivalent poliovirus vaccine, live, oral Salud Francis JEWEL HOLE DRILLER.[facility] Work Phone: [facility] Work Phone: 02-15-1998 influenza virus vaccine, unspecified formulation Salud Francis JEWEL HOLE DRILLER.[facility] Work Phone: [facility] Work Phone: 06-06-1995 diphtheria, tetanus toxoids and pertussis vaccine Salud Francis JEWEL HOLE DRILLER.[facility] Work Phone: [facility] Work Phone: 06-06-1995 haemophilus influenz ae type b vaccine, HbOC conjugate Salud Francis JEWEL HOLE DRILLER.[facility] Work Phone: [facility] Work Phone: 12-11-1994 measles, mumps and rubella virus vaccine Salud Francis JEWEL HOLE DRILLER.NUCLEAR PLANT TECHNICAL ADVISOR Work Phone: [facility] Work Phone: 06-21-1994 diphtheria, tetanus toxoids and pertussis vaccine Salud Francis JEWEL HOLE DRILLER.[facility] Work Phone: [facility] Work Phone: 06-21-1994 haemophilus influenz ae type b vaccine, HbOC conjugate Salud Francis JEWEL HOLE DRILLER.NUCLEAR PLANT TECHNICAL ADVISOR Work Phone: [facility] Work Phone: 06-21-1994 hepatitis B vaccine, pediatric or pediatric/adolescent dosage Salud Francis JEWEL HOLE DRILLER.NUCLEAR PLANT TECHNICAL ADVISOR Work Phone: [facility] Work Phone: 06-21-1994 trivalent poliovirus vaccine, live, oral Salud Francis JEWEL HOLE DRILLER.NUCLEAR PLANT TECHNICAL ADVISOR Work Phone: [facility] Work Phone: 05-10-1994 diphtheria, tetanus toxoids and pertussis vaccine Salud Francis JEWEL HOLE DRILLER.NUCLEAR PLANT TECHNICAL ADVISOR Work Phone: [facility] Work Phone: 05-10-1994 haemophilus influenz ae type b vaccine, HbOC conjugate Salud Francis JEWEL HOLE DRILLER.[facility] Work Phone: [facility] Work Phone: 05-10-1994 trivalent poliovirus vaccine, live, oral Salud Francis JEWEL HOLE DRILLER.[facility] Work Phone: [facility] Work Phone: 01-23-1994 diphtheria, tetanus toxoids and pertussis vaccine Salud Francis JEWEL HOLE DRILLER.NUCLEAR PLANT TECHNICAL ADVISOR Work Phone: [facility] Work Phone: 01-23-1994 haemophilus influenz ae type b vaccine, HbOC conjugate Salud Francis JEWEL HOLE DRILLER.[facility] Work Phone: [facility] Work Phone: 01-23-1994 hepatitis B vaccine, pediatric or pediatric/adolescent dosage Salud Francis JEWEL HOLE DRILLER.[facility] Work Phone: [facility] Work Phone: 01-23-1994 trivalent poliovirus vaccine, live, oral Salud Francis JEWEL HOLE DRILLER.NUCLEAR PLANT TECHNICAL ADVISOR Work Phone: [facility] Work Phone: 1993 hepatitis B vaccine, pediatric or pediatric/adolescent dosage Salud Francis JEWEL HOLE DRILLER.[facility] Work Phone: [facility] Work Phone: Payers Date Payer Category Payer Self-pay [id number] 2023 Private Health Insurance [facility] UMR CHOICE PLUS [id number] 2023-Present [phone] [address] [address] [place] [address] HMO [id number] 2022 Private Health Insurance [id number] 2020 Private Health Insurance [employer] A ETNA CHOICE POS II [id number] 2020-Present [phone] [address] [place] [address] POS [id number]. [id number] 2015 Unknown [id number] 2014 Unknown [id number] 2014 Unknown [id number] 2012 Unknown [id number] 1993 Unknown [id number] 2.16.840.1.707493.3.579.2. 716 1993 Unknown [id number] 2.16.840.1.539783.3.579.2. 627 1993 Unknown [id number] 2.16.840.1.868140.3.579.2. 479 1993 Unknown [id number] 2.16.840.1.502664.3.579.2. 479 1993 Unknown [id number] 2.16.840.1.018316.3.579.2. 479 1993 Unknown [id number] 2.16.840.1.394900.3.579.2. 902 Private Health Insurance [id number] Private Health Insurance [id number] Unknown Unknown [id number] Unknown [id number] Unknown [id number] Unknown [id number] 2.16.840.1.159694.3.579.2. 462 Unknown [id number] 2.16.840.1.129053.3.579.2. 462 Unknown [id number] 2.16.840.1.087488.3.579.2. 462 Unknown [id number] 2.16.840.1.687851.3.579.2. 462 Unknown [id number] 2..840.1.332302.3.579.2. 462 Unknown [id number] 2.840.1.155795.3.579.2. 462 Unknown [id number] 2.840.1.103265.3.579.2. 462 Unknown [id number] 2.840.1.563065.3.579.2. 462 Unknown [id number] 2.840.1.354537.3.579.2. 462 Unknown [id number] 2..840.1.596728.3.579.2. 462 Unknown [id number] 2.840.1.828663.3.579.2. 462 Unknown [id number] 2.840.1.328571.3.579.2. 462 Unknown [id number] 2.840.1.593346.3.579.2. 462 Unknown [id number] 2.840.1.095338.3.579.2. 462 Unknown [id number] 2..840.1.223397.3.579.2. 462 Unknown [id number] 2.16.840.1.384730.3.579.2. 462 Unknown [id number] 2.16.840.1.043839.3.579.2. 462 Unknown [id number] 2.840.1.804601.3.579.2. 462 Unknown [id number] 2.16.840.1.783621.3.579.2. 462 Unknown [id number] 2.16.840.1.016054.3.579.2. 462 Unknown [id number] 2.16.840.1.745333.3.579.2. 462 Unknown [id number] 2.16.840.1.131156.3.579.2. 462 Unknown [id number] 2.16.840.1.204481.3.579.2. 462 Unknown [id number] 2.16.840.1.240284.3.579.2. 462 Unknown [id number] 2.16.840.1.185930.3.579.2. 462 Unknown [id number] 2.16.840.1.315962.3.579.2. 462 Unknown [id number] 2.16.840.1.257449.3.579.2. 462 Unknown [id number] 2.16.840.1.977995.3.579.2. 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 [facility] Work Phone: Tobacco use: Tobacco use: [facility]; [facility] Work Phone: Start: 02-13-2022 End: 11-10-2024 Tobacco smoking status NHIS Never smoked tobacco [facility] Work Phone: Start: 07-12-2021 End: 12-05-2021 Alcohol intake Not Asked [facility] Start: 1995 Sex Assigned At Not on file [facility] Start: 07-02-2021 End: 07-12-2021 Exposure to SARS-CoV-2 (event) Not sure [facility] Start: 08-30-2021 End: 12-02-2022 Tobacco smoking status NHIS Unknown if ever smoked [facility] Start: 1995 Sex Assigned At Female W [facility] Sex Assigned At Sex [facility] Start: 07-12-2021 Tobacco use and exposure Smokeless tobacco non-user [facility] Start: 12-05-2021 End: 08-21-2023 Tobacco use panel [facility] National Score (1-100), lower number is lower risk 51 [facility] NEGATED: Highlighted row [facility] Medical Equipment Procedure Code Equipment Code Equipment Origin al Text Equipment Identifier Dates Blood Sugar Diagnostic (Blood Glucose Test) strip Start: 07-05-2022 Lancets Start: 07-05-2022 Blood Sugar Diagnostic (Blood Glucose Test) strip Start: 07-05-2022 Lancets Start: 07-05-2022 Blood Sugar Diagnostic (Blood Glucose Test) strip Start: 07-05-2022 Lancets Start: 07-05-2022 Blood Sugar Diagnostic (Blood Glucose Test) strip Start: 07-05-2022 Lancets Start: 07-05-2022 Blood Sugar Diagnostic (Blood Glucose Test) strip Start: 07-05-2022 Lancets Start: 07-05-2022 Blood Sugar Diagnostic (Blood Glucose Test) strip Start: 07-05-2022 Lancets Start: 07-05-2022 Blood Sugar Diagnostic (Blood Glucose Test) strip Start: 07-05-2022 Lancets Start: 07-05-2022 Blood Sugar Diagnostic (Blood Glucose Test) strip Start: 07-05-2022 Lancets Start: 07-05-2022 Blood Sugar Diagnostic (Blood Glucose Test) strip Start: 07-05-2022 Lancets Start: 07-05-2022 Blood Sugar Diagnostic (Blood Glucose Test) strip Start: 07-05-2022 Lancets Start: 07-05-2022 Blood Sugar Diagnostic (Blood Glucose Test) strip Start: 07-05-2022 End: 09-25-2022 Lancets Start: 07-05-2022 End: 09-25-2022 Blood Sugar Diagnostic (Blood Glucose Test) strip Start: 07-05-2022 End: 09-25-2022 Lancets misc Start: 07-05-2022 End: 09-25-2022 Blood Sugar Diagnostic (Blood Glucose Test) strip Start: 07-05-2022 End: 09-25-2022 Lancets misc Start: 07-05-2022 End: 09-25-2022 Blood Sugar Diagnostic (Blood Glucose Test) strip Start: 07-05-2022 End: 09-25-2022 Lancets misc Start: 07-05-2022 End: 09-25-2022 Blood Sugar Diagnostic (Blood Glucose Test) strip Start: 07-05-2022 End: 09-25-2022 Lancets misc Start: 07-05-2022 End: 09-25-2022 Blood Sugar Diagnostic (Blood Glucose Test) strip Start: 07-05-2022 End: 09-25-2022 Lancets misc Start: 07-05-2022 End: 09-25-2022 Blood Sugar Diagnostic (Blood Glucose Test) strip Start: 07-05-2022 End: 09-25-2022 Lancets misc Start: 07-05-2022 End: 09-25-2022 Blood Sugar Diagnostic (Blood Glucose Test) strip Start: 07-05-2022 End: 09-25-2022 Lancets misc Start: 07-05-2022 End: 09-25-2022 Blood Sugar Diagnostic (Blood Glucose Test) strip Start: 07-05-2022 End: 09-25-2022 Lancets misc Start: 07-05-2022 End: 09-25-2022 Blood Sugar Diagnostic (Blood Glucose Test) strip Start: 07-05-2022 End: 09-25-2022 Lancets misc Start: 07-05-2022 End: 09-25-2022 Goals Date Patient Goal Desired Activity /State Mental Status Date Assessment Result Facility 12-05-2022 Cognitive function Voice/Name [facility] Work Phone: 09-05-2022 Cognitive function Level Of Cons ciousness Awake;Alert;Appropriate [facility] Work Phone: 09-05-2022 Cognitive function Arousable To Voice/Nam e [facility] Work Phone: Clinical Notes 07-12-2021 to 10-29-2024 Note Date & Type Note Facility 10-29-2024 Progress note Note Date/Time October 29, 2024 7:27am [facility] Medical Records Department [address] [place] [address] Progress Note - OBGYN 10/29/24725 MR#: [id number] Acct: [id number] Name: CRISTELA SHAH Rep #:[id number] : 1995 28 From: Gay Gan DO PCP: Dr. Rosanna Scales, DO Status:ADM IN [facility] Subjective Subjective Patient is laying in bed comfortably without complaints. She states that she slept on an off during the night. Lochia is mild and pain is minimal. Objective Data Objective Data Vital Signs: Vital Signs Temp Pulse Resp BP Pulse Ox O2 Del Method 98.8 F 99 16 138/92 H 99 Room Air 10/29/24 06:31 10/29/24 06:31 10/29/24 06:31 10/29/24 06:31 10/29/24 06:31 10/29/24 06:31 Oxygen Delivery Method Room Air Weight: 246 lb Body Mass Index (BMI) 42.2 Intake & Output: Intake and Output for Last 24 Hours 10/27/24 10/28/24 10/29/24 23:59 23:59 23:59 Intake Total 500 / 500 1000 / 1000 Output Total 1550 / 1550 1200 / 1200 Balance -1050 / -1050 -200 / -200 Lab / Micro Data 10/29/24 05:23 Labs: Laboratory Results - last 24 hr 10/28/24 17:00: WBC 12.2 H, RBC 4.03 L, Hgb 10.0 L, Hct 31.9 L, MCV 79.2 L, MCH 24.8 L, MCHC 31.3 L, RDW Std Deviation 43.6, RDW Coeff of Kyler 15.1 H, Plt Count 247, MPV 12.0, Immature Gran % (Auto) 0.600, Neut % (Auto) 63.7, Lymph % (Auto) 23.2, Dare % (Auto) 9.2, Eos % (Auto) 3.0, Baso % (Auto) 0.3, Absolute Neuts (auto) 7.8 H, Absolute Lymphs (auto) 2.84, Nucleated RBC % 0, Blood Type O POSITIVE, Antibody Screen NEGATIVE 10/28/24 17:20: PT 12.5, INR 0.9, Syphilis Total Ab Nonreactive 10/29/24 05:23: WBC 14.0 H, RBC 3.19 L, Hgb 8.0 L, Hct 25.7 L, MCV 80.6 L, MCH 25.1 L, MCHC 31.1 L, RDW Std Deviation 43.5, RDW Coeff of Kyler 14.8 H, Plt Count 201, MPV 11.7 Radiography Diagnostic Testing: Radiology Impression Obstetrics Ultrasound 10/28/24 16:01 IMPRESSION: heart rate of 73-75 beats per minute. The technologist called the office about the low heart rate and she was sent to the labor and delivery. Femur length of 3%. Reading Location: [address] Constitutional Constitutional: Reports systems reviewed and no addt'l complaints, except as documented Cardiovascular Cardiovascular: Denies chest pain, dizziness, dyspnea or irregular heart rhythm Respiratory/Chest Respiratory/Chest: Denies cough, pain on inspiration or shortness of breath at rest Gastrointestinal Gastrointestinal: Denies abdominal pain, nausea or vomiting Genitourinary Genitourinary: Denies burning urination Musculoskeletal Musculoskeletal: Denies muscle cramps, muscle spasms or muscle weakness Neurologic Neurologic: Denies confusion, dizziness, headache(s) or lack of coordination Psychiatric Psychiatric: Denies anxiety, behavioral changes or depression Physical Exam HEENT normocephalic Resp normal respiratory effort and normal air movement GI soft to palpation, non-tender and non-distended Rectal Exam: other Other Details: Incision is clean, dry, and intact no CVA tenderness Extremity normal to inspection General Extremity: edema bilateral (trace ) Assessment & Plan (1) Status post section: COMMENT: lanie 32 weeks 1 day- JV (2) bradycardia, antepartum condition or complication: (3) Contraception management: COMMENT: Wants BS with CS (4) Obesity affecting : QUALIFIERS: Trimester: third trimester Obesity type affecting : unspecified obesity Qualified Code(s): O99.213 - Obesity complicating , third trimester COMMENT: HgbA1c (5) Hypertension: QUALIFIERS: Hypertension type: primary hypertension Qualified Code(s): I10 - Essential (primary) hypertension COMMENT: labetalol 100 bid deliver 38 weeks. at 32 wk: twice weekly NST, weekly YULIANA and growth US Q4w (6) Hx of section: COMMENT: Gestational HTN & breech. C/S 12/03/24 JV. PLAN: Plan s/p LTCS PPD #1 1. routine post care 2. baby is in NICU at [place]- weaned off vent 3. rh positive 4. rubella immune 5. dc today with 2 week post op follow up in office 10/29/24726 <Electronically signed by Gay Gan DO> Cosigner Signature (if applicable): CC: ~ Signed [facility] Work Phone: 1(767) 776-208507-11-2025 Progress note [facility] Medical Records Department [address] [place] [address] Progress Note - OBGYN 10/29/24725 MR#: [id number] Acct: [id number] Name: CRISTELA SHAH Rep #:[id number] : 1995 28 From: Gay Gan DO PCP: Dr. Rosanna Scales, DO Status:ADM IN Location: [place]167-5 Subjective Subjective Patient is laying in bed comfortably without complaints. She states that she slept on an off duringthe night. Lochia is mild and pain is minimal. Objective Data Objective Data Vital Signs: Vital Signs Temp Pulse Resp BP Pulse Ox O2 Del Method 98.8 F 99 16 138/92 H 99 Room Air 10/29/24 06:31 10/29/24 06:31 10/29/24 06:31 10/29/24 06:31 10/29/24 06:31 10/29/24 06:31 Oxygen Delivery Method Room Air Weight: 246 lb Body Mass Index (BMI) 42.2 Intake & Output: Intake and Output for Last 24 Hours 10/27/24 10/28/24 10/29/24 23:59 23:59 23:59 Intake Total 500 / 500 1000 / 1000 Output Total 1550 / 1550 1200 / 1200 Balance -1050 / -1050 -200 / -200 Lab / Micro Data 10/29/24 05:23 Labs: Laboratory Results - last 24 hr 10/28/24 17:00: WBC 12.2 H, RBC 4.03 L, Hgb 10.0 L, Hct 31.9 L, MCV 79.2 L, MCH 24.8 L, MCHC 31.3 L, RDW Std Deviation 43.6, RDW Coeff of Kyler 15.1 H, Plt Count 247, MPV 12.0, Immature Gran % (Auto) 0.600, Neut % (Auto) 63.7, Lymph % (Auto) 23.2, Dare % (Auto) 9.2, Eos % (Auto) 3.0, Baso % (Auto) 0.3, Absolute Neuts (auto) 7.8 H, Absolute Lymphs (auto) 2.84, Nucleated RBC % 0, Blood Type O POSITIVE, Antibody Screen NEGATIVE 10/28/24 17:20: PT 12.5, INR 0.9, Syphilis Total Ab Nonreactive 10/29/24 05:23: WBC 14.0 H, RBC 3.19 L, Hgb 8.0 L, Hct 25.7 L, MCV 80.6 L, MCH 25.1 L, MCHC 31.1 L,RDW Std Deviation 43.5, RDW Coeff of Kyler 14.8 H, Plt Count 201, MPV 11.7 Radiography Diagnostic Testing: Radiology Impression Obstetrics Ultrasound 10/28/24 16:01 IMPRESSION: heart rate of 73-75 beats per minute. The technologist called the office about the low heart rate and she was sent to the labor and delivery. Femur length of 3%. Reading Location: [address] Constitutional Constitutional: Reports systems reviewed and no addt'l complaints, except as documented Cardiovascular Cardiovascular: Denies chest pain, dizziness, dyspnea or irregular heart rhythm Respiratory/Chest Respiratory/Chest: Denies cough, pain on inspiration or shortness of breath at rest Gastrointestinal Gastrointestinal: Denies abdominal pain, nausea or vomiting Genitourinary Genitourinary: Denies burning urination Musculoskeletal Musculoskeletal: Denies muscle cramps, muscle spasms or muscle weakness Neurologic Neurologic: Denies confusion, dizziness, headache(s) or lack of coordination Psychiatric Psychiatric: Denies anxiety, behavioral changes or depression Physical Exam HEENT normocephalic Resp normal respiratory effort and normal air movement GI soft to palpation, non-tender and non-distended Rectal Exam: other Other Details: Incision is clean, dry, and intact no CVA tenderness Extremity normal to inspection General Extremity: edema bilateral (trace ) Assessment & Plan (1) Status post section: COMMENT: lanie 32 weeks 1 day- JV (2) bradycardia, antepartum condition or complication: (3) Contraception management: COMMENT: Wants BS with CS (4) Obesity affecting : QUALIFIERS: Trimester: third trimester Obesity type affecting : unspecified obesity Qualified Code(s): O99.213 - Obesity complicating , third trimester COMMENT: HgbA1c (5) Hypertension: QUALIFIERS: Hypertension type: primary hypertension Qualified Code(s): I10 - Essential (primary) hypertension COMMENT: labetalol 100 bid deliver 38 weeks. at 32 wk: twice weekly NST, weekly YULIANA and growth US Q4w (6) Hx of section: COMMENT: Gestational HTN & breech. C/S 12/03/24 JV. PLAN: Plan s/p LTCS PPD #1 1. routine post care 2. baby is in NICU at [place]- weaned off vent 3. rh positive 4. rubella immune 5. dc today with 2 week post op follow up in office 10/29/24 [id number] Cosigner Signature (if applicable): CC: ~ Signed [facility]07-10-2025 Discharge summary Author Gay Pillai [facility] Note Date/Time October 28, 2024 6:50 pm [facility] Medical Records Department [address] [place] [address] Instructions for Home/Discharge Instructions 10/28/24 1848 MR#: [id number] Acct: [id number] Name: CRISTELA SHAH Rep #:[id number] : 1995 28 From: Gay Gan DO PCP: Dr. Rosanna Scales, DO Status:ADM IN Discharge Instructions Diet Discharge Diet: No restrictions DC O2, CPAP, BIPAP needs Home O2 Discharge instructions: No Dressing / Incision Discharge Activity: May Not Drive (for 2 weeks or while taking narcotic pain medications.), May Shower and May Take a Tub Bath (in 7 days.) May resume sexual activity in: 4-6 weeks Weight Bearing Status: Full weight bearing Lifting Restrictions: 20 pounds Dressing / Incision Call your doctor if your incision/area has: Continuous Slow Oozing, Sudden Increased Bleeding, Increased Pain/ Swelling, Increased Redness and Foul Smelling Discharge Call your doctor if you observe: Fever of 101 or Higher and Using more than 1 pad per hour Suture Line Care: Avoid Pulling/Pushing and Avoid Pinching/Bending Cleanse incision/area with: Soap & Water and Keep Dressing Clean & Dry Follow Up Care Please Follow Up With: Gay Gan DO When: Call [phone] to make an appointment for an incision check in 1-2 weeks. Test Results: Test results from this visit will be discussed in further detail at your follow- up appointment, if applicable. Discharge Plan Admission Admit Date/Time: 10/28/24 17:03 Primary Reason for Your Visit: section Attending Provider: Gay Gan Primary Care Provider: Rosanna Scales Consulting Providers: Jaqueline Hutchison APPRENTICE ELECTRICIAN Discharge Orders/Prescriptions Prescriptions: New ibuprofen 800 mg tablet 800 mg PO Q8H PRN (Reason: pain) Qty: 30 0RF oxycodone-acetaminophen [Percocet] 5-325 mg tablet 1 tab PO Q4H PRN (Reason: pain) 7 Days Qty: 20 0RF Continued PNV no.[id number] 400 mcg-35 mg- 25 mg-5 mg tablet,chewable PO labetalol 100 mg tablet 100 mg PO BID citalopram 40 mg tablet 40 mg PO DAILY Qty: 30 12RF pantoprazole 20 mg tablet,delayed release (DR/EC) 40 mg PO BID Qty: 60 5RF ondansetron 4 mg tablet,disintegrating 4 mg PO Q8H PRN (Reason: nausea and vomiting) Qty: 60 4RF Referrals / Follow Up: Rosanna Scales DO [Primary Care Provider] - 10/28/24 1850<Electronically signed by Gay Gan DO>Gay Gan DO CC: LUIZ Hutchison; Dr. Rosanna Scales DO ~ Signed [facility] Work Phone: 1(954) 736-622307-10-2025 History and physical note Author Gay Pillai [facility] Note Date/Time October 28, 2024 6:31 pm [facility] Medical Records Department [address] [place] [address] H&P Exam - AERONAUTICAL RESEARCH ENGINEER 10/28/241805 MR#: [id number] Acct: [id number] Name: CRISTELA SHAH Rep #:[id number] : 1995 28 From: Gay Gan DO PCP: Dr. Rosanna Scales, DO Status:ADM IN Location: [facility]594-1 HPI - General General Date of Admission: 10/28/24 HPI Narrative CRISTELA SHAH, is a 28 y/o @ 32 weeks 1 day who presented to ultrasound thisafternoon for a routing growth scan. While in the ultrasound department the technoted that the heart rate was in the 70's. The patient was brought to L&D and immediately brought to the OR. The heart rate was noted to be 150's so she was walked to the labor room for further observation. While in the labor room the heart rate went down to the 70's again and stayed there. This was confirmed by ultrasound and an LANIE was called. Maternal Data Information MIKE Calculator Estimated Delivery Date Method Current WG Current Estimate 12/22/24 LMP (Certain) 32w 1d Other Estimates 12/24/24 Ultrasound #1 31w 6d PFSH [facility] Medical History Supervision of high risk , antepartum PONV (postoperative nausea and vomiting) Anemia Anxiety Wears contact lenses Wears glasses Low iron Heartburn Non-smoker Hypertension Severely increased blood pressure and swelling during Breech presentation Gestational hypertension Obesity affecting Abnormality of hormone Depression Home Medications ?Medication ?Instructions ?Recorded ?Last Taken ?Type citalopram 40 mg tablet 40 mg PO DAILY depression #3 0 tabs 09/09/22 Unknown Rx pantoprazole 20 mg tablet,delayed 40 mg (2 x 20 mg) PO BID #60 01/05/24 Unknown Rx release TABLETS labetalol 100 mg tablet 100 mg PO BID 03/11/24 Unkno wn History PNV 153-FA 400 mcg-om3 35 mg-dha tab PO 05/07/24 Unkno wn History 25 mg-epa 5 mg-fish oil chew tablet ondansetron 4 mg disintegrating 4 mg PO Q8H PRN nausea and 10/26/24 Unknown Rx tablet vomiting #60 tabs Allergy/AdvReac Type Severity Reaction Status Date / Time No Known Allergies Allergy Verified 10/26/24 14:01 Family History Father Hypertension Surgical History History of esophagogastroduodenoscopy (EGD) Status post section Social History adopted: No household members: spouse and children housing: house number of children: 1 current occupational status: employed current occupation: [employer] current occupational exposures/hazards: No pets and animals: Yes (2) pets and animals: dog(s) history of recent travel: Yes (- February) out of state: Yes out of country: No sexually active: Yes Smoking Status: Never smoker alcohol intake: current details: social not while substance use type: does not use well-balanced diet: daily or most days caffeine: Yes Type: carbonated beverages Number of servings: 1 eating out: 4 or more times/week during the past year weight has: decreased > 10 lbs what type of physical activity do you participate in: none deloris/gnosticist: Restoration seatbelt use: always do you feel safe at home: Yes additional social history: - 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 Date Name GA/Weeks Outcome Route Bth Weight Gen Labor Lgth Anesthesia Del Locatn Provider FOB 09/04/22 Jessica 37 live - full term 6lbs Male s dawson [facility] Vande Velde Delivery Date: 09/04/22 Last Updated by: Abigail Reed Visit Details Expected Delivery Route/Plan prior cs. needs delivered at 38 weeks. but if goes into labor on her own wants to . RLTCS BS with JV Plans Covid status: [] Flu vaccine: [] Tdap vaccine: given Rhogam: na LARC form signed: yes Problem list reviewed and updated with the most current plan of care details and appropriate orders placed. Relevant counseling for the gestational age provided. Continue routine care and follow up unless otherwise noted in visit notes/problem list details OB Flowsheet Initial Weight: Not Recorded Date -?-?-?-?-?-?-?-?-?-?-?-?- EGA Weight BP Urine Prot -?-?-?-?-?-?-?-?-?-?-?-?- Glucose FHR FuHt Pres Dilation -?-?-?-?-?-?-?-?-?-?-?-?- Effaced St Visit Note 05/21/24 -?-?-?-?-?-?-?-?-?-?-?-?- 9w 2d 226 lb 6 oz 136/88 -?-?-?-?-?-?-?-?-?-?-?-?- 184 -?-?-?-?-?-?-?-?-?-?-?-?- JV- CRL consiste nt with LMP. declines nipt. taking labetalol. 05/28/24 -?-?-?-?-?-?-?-?-?-?-?-?- 10w 2d 228 lb 6 oz 153/91 -?-?-?-?-?-?-?-?-?-?-?-?- 167 -?-?-?-?-?-?-?-?-?-?-?-?- JV- patient retu rns today for more bleeding. no vaginal infection or ectropion suspected. Mucous with blood seen coming from the cervix. ultrasound shows movement and heart tones. scant evidence of a ela present. bleeding precautions given. pelvic rest encouraged. 06/16/24 -?-?-?-?-?-?-?-?-?-?-?-?- 13w 0d 230 lb 160/95 133/84 Negative -?-?-?-?-?-?-?-?-?-?-?-?- Negative 160 -?-?-?-?-?-?-?-?-?-?-?-?- SM- no vb some c ramping 07/01/24 -?-?-?-?-?-?-?-?-?-?-?-?- 15w 1d 228 lb 4 oz 137/87 -?-?-?-?-?-?-?-?-?-?-?-?- 157 -?-?-?-?-?-?-?-?-?-?-?-?- KW- random spott ing at times and light cramping after BM today. heartbeat and movement on US today. HAs MFM US on 07/29. 07/16/24 -?-?-?-?-?-?-?-?-?-?-?-?- 17w 2d 233 lb 8 oz 135/79 Nega tive -?-?-?-?-?-?-?-?-?-?-?-?- Negative 150 -?-?-?-?-?-?-?-?-?-?-?-?- JV- no lof but s till has spotting from time to time. sees mfm for scan 07/29. no clots or collecting blood on a pad or underwear. 08/11/24 -?-?-?-?-?-?-?-?-?-?-?-?- 21w 0d 236 lb 124/81 Negative -?-?-?-?-?-?-?-?-?-?-?-?- Negative 140 -?-?-?-?-?-?-?-?-?-?-?-?- JV- mfm ultrasou nd notes follow up on placentation but states is posterior. patient states they told her to practice pelvic rest. will inquire. no other complaints. 09/09/24 -?-?-?-?-?-?-?-?-?-?-?-?- 25w 1d 243 lb 137/84 Negative -?-?-?-?-?-?-?-?-?--?-?-?- Negative 140 25 -?-?-?-?-?-?-?-?-?-?-?-?- SM- no vb crampi ng lof good fm 09/30/24 -?-?-?-?-?-?-?-?-?-?-?-?- 28w 1d 245 lb 8 oz 136/78 Nega tive -?-?-?-?-?-?-?-?-?-?-?-?- Negative 148 29 -?-?-?-?-?-?-?-?-?-?-?-?- MH-NO VB, LOF. Good FM.Larc, 28 wk labs. tdap. 10/13/24 -?-?-?-?-?-?-?-?-?-?-?-?- 30w 0d 244 lb 8 oz 144/78 130/72 Negative -?-?-?-?-?-?-?-?-?-?-?-?- Negative 146 31 -?-?-?-?-?-?-?-?-?-?-?-?- MH-No VB, LOF. G ood FM. No headaches/vision changes. Enc to start FE daily 10/26/24 -?-?-?-?-?-?-?-?-?-?-?-?- 31w 6d 249 lb 127/83 Negative -?-?-?-?-?-?-?-?-?-?--?-?- Negative 145 -?-?-?-?-?-?-?-?-?-?-?-?- MH-NST only. Charito ble to keep active on monitor to complete. Deferred and will get BPP. ROS ROS Narrative limited ROS as the patient was immediately brought to the OR and intubated after a brief interview. Constitutional Constitutional: Denies fever(s) ENT HEENT: Denies dizziness Cardiovascular Cardiovascular: Denies chest pain Neurologic Neurologic: Denies dizziness Physical Exam Const alert, oriented x3, no apparent distress and healthy appearing General Appearance: cooperative; Negative for anxious HEENT normocephalic Face and Sinus: normal facial exam Resp normal respiratory effort Effort and Inspection: able to speak in complete sentences Cardio regular rate GI soft to palpation and non-tender Inspection: gravid Palpation: soft; Negative for tender Extremity normal to inspection, full ROM and no clubbing, cyanosis or edema General Extremity: Negative for calf tenderness or edema Skin Lesions: no lesions Rashes: no rashes Psych mental status grossly normal Labs Labs Labs: Blood Type O POSITIVE Antibody Screen NEGATIVE Hct 31.9 % (37-47) L Hgb 10.0 g/dL (12.0-15.0) L Obstetrics Ultrasound Syphilis Total Ab Nonreactive (Nonreactive) Rubella IgG Antibody Reactive (Nonreactive) Hep Bs Antigen Non-Reactive (Nonreactive) Hepatitis C Antibody Non-Reactive (Nonreactive) Chlamydia DNA (VIKTORIYA) Negative (Negative) N.gonorrhoeae DNA (VIKTORIYA) Negative (Negative) HIV 1&2 Antibody Nonreactive (Nonreactive) Glucose 1 Hr 50 gm 72 mg/dL (70-140) Gest Glucose Tolerance MG/DL Rhogam given: No Miscellaneous Test Assessment & Plan (1) bradycardia, antepartum condition or complication: (2) Anemia: QUALIFIERS: Anemia type: iron deficiency Iron deficiency anemia type: unspecified iron deficiency Qualified Code(s): D50.9 - Iron deficiency anemia, unspecified COMMENT: add FE, recheck 4 wk (3) Supervision of high risk , antepartum: COMMENT: PRR , MIKE 12/22/24 , Girl -reagan. PC Jessica, Jarek (4) Obesity affecting : QUALIFIERS: Trimester: third trimester Obesity type affecting : unspecified obesity Qualified Code(s): O99.213 - Obesity complicating , third trimester COMMENT: HgbA1c (5) Hypertension: QUALIFIERS: Hypertension type: primary hypertension Qualified Code(s): I10 - Essential (primary) hypertension COMMENT: labetalol 100 bid deliver 38 weeks. at 32 wk: twice weekly NST, weekly YULIANA and growth US Q4w (6) Hx of section: COMMENT: Gestational HTN & breech. C/S 12/03/24 JV. 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 PLAN: Plan plan is for an emergency section now. 10/28/24 0040 <Electronically signed by Gay Gan DO> Cosigner Signature (if applicable): CC: Dr. Rosanna Scales DO; Dr. Gay Gan DO~ Signed [facility] Work Phone: [phone] 240-734807-10-2025 Discharge summary [facility] Medical Records Department [address] [place] [address] Instructions for Home/Discharge Instructions 10/28/24 1848 MR#: [id number] Acct: [id number] Name: CRISTELA SHAH Rep #:[id number] : 1995 28 From: Gay Gan DO PCP: Dr. Rosanna Scales DO Status:ADM IN Discharge Instructions Diet Discharge Diet: No restrictions DC O2, CPAP, BIPAP needs Home O2 Discharge instructions: No Dressing / Incision Discharge Activity: May Not Drive (for 2 weeks or while taking narcotic pain medications.), May Shower and May Take a Tub Bath (in 7 days.) May resume sexual activity in: 4-6 weeks Weight Bearing Status: Full weight bearing Lifting Restrictions: 20 pounds Dressing / Incision Call your doctor if your incision/area has: Continuous Slow Oozing, Sudden Increased Bleeding, Increased Pain/ Swelling, Increased Redness and Foul Smelling Discharge Call your doctor if you observe: Fever of 101 or Higher and Using more than 1 pad per hour Suture Line Care: Avoid Pulling/Pushing and Avoid Pinching/Bending Cleanse incision/area with: Soap & Water and Keep Dressing Clean & Dry Follow Up Care Please Follow Up With: Gay Gan DO When: Call [phone] to make an appointment for an incision check in 1-2 weeks. Test Results: Test results from this visit will be discussed in further detail at your follow- up appointment, if applicable. Discharge Plan Admission Admit Date/Time: 10/28/24 17:03 Primary Reason for Your Visit: section Attending Provider: Gay Gan Primary Care Provider: Rosanna Scales Consulting Providers: Jaqueline Hutchison APPRENTICE ELECTRICIAN Discharge Orders/Prescriptions Prescriptions: New ibuprofen 800 mg tablet 800 mg PO Q8H PRN (Reason: pain) Qty: 30 0RF oxycodone-acetaminophen [Percocet] 5-325 mg tablet 1 tab PO Q4H PRN (Reason: pain) 7 Days Qty: 20 0RF Continued PNV no.[id number]-[id number] 400 mcg-35 mg- 25 mg-5 mg tablet,chewable PO labetalol 100 mg tablet 100 mg PO BID citalopram 40 mg tablet 40 mg PO DAILY Qty: 30 12RF pantoprazole 20 mg tablet,delayed release (DR/EC) 40 mg PO BID Qty: 60 5RF ondansetron 4 mg tablet,disintegrating 4 mg PO Q8H PRN (Reason: nausea and vomiting) Qty: 60 4RF Referrals / Follow Up: Rosanna Scales DO [Primary Care Provider] - 10/28/24 1850Jeandie Gan DO CC: LUIZ Hutchison; Dr. Rosanna Scales DO ~ Signed [facility]07-10-2025 Procedure note [facility] Medical Records Department [address] [facility] [place] [address] Operative Report 10/28/24 1832 MR#: [id number] Acct: [id number] Name: CRISTELA SHAH Rep #:[id number] : 1995 28 From: Gay Gan DO PCP: Dr. Rosanna Scales DO Status:ADM IN Location: [id number] Assessment & Plan (1) bradycardia, antepartum condition or complication: (2) Supervision of high risk , antepartum: COMMENT: PRR , MIKE 12/22/24 , Girl -reagan. PC Jessica, Jarek (3) Anemia: QUALIFIERS: Anemia type: iron deficiency Iron deficiency anemia type: unspecified iron deficiency Qualified Code(s): D50.9 - Iron deficiency anemia, unspecified COMMENT: add FE, recheck 4 wk (4) Contraception management: COMMENT: Wants BS with CS (5) Obesity affecting : QUALIFIERS: Trimester: third trimester Obesity type affecting : unspecified obesity Qualified Code(s): O99.213 - Obesity complicating , third trimester COMMENT: HgbA1c (6) Hypertension: QUALIFIERS: Hypertension type: primary hypertension Qualified Code(s): I10 - Essential (primary) hypertension COMMENT: labetalol 100 bid deliver 38 weeks. at 32 wk: twice weekly NST, weekly YULIANA and growth US Q4w (7) Hx of section: COMMENT: Gestational HTN & breech. C/S 12/03/24 JV. (8) : QUALIFIERS: Weeks of gestation: 31 weeks Qualified Code(s): Z3A.31 - 31 weeks gestation of COMMENT: elects NIPT with gender Maternal Data Information MIKE Calculator Estimated Delivery Date Method Current WG Current Estimate 12/22/24 LMP (Certain) 32w 1d Other Estimates 12/24/24 Ultrasound #1 31w 6d Gestational age: 32 weeks 1 day [place] Doctor Who Attended Delivery: Zayra Chambers Operative Report (OB) Details Procedure Type: low transverse Date of Procedure: 10/28/24 Procedure Start Time: 17:08 Time of Delivery: 17:10 Pre-Operative Diagnosis: Breech and Other ( bradycardia ) Other Pre- Operative diagnosis: priorcesarean section Post-Operative Diagnosis: Same as Pre-operative diagnosis Classification: Stat Type of Anesthesia: General Antibiotic Given: Ancef 3 grams IV x1 Drain: Vaughn to straight drain Estimated Blood Loss: 1200cc Findings Description of surgery: The patient was brought emergently to the operating room after a bradycardia of 70 bpm was noted on the heart rate monitor and confirmed onultrasound. Prior to this she was also seen in ultrasound with a bradycardia in the 70s. The decision was made to proceed with a emergency C-se ction. General anesthesia was administered and after a Betadine splash and a very quick chlorhexidine wash over the incision while the IVs were being placed a low transverse incision was made with a scalpel. The fascia was nicked in themidline with the scalpel and carried laterally with the scalpelof the medial rectus muscles were also incised, sparing the lateral rectus muscles. The remaining rectus muscles were and the peritoneum was entered bluntly abladder blade was placed into the abdomen the lower uterine segment was noted tohave a 4 cm uterine window. An incision was made superior to this using the scalpel and extended laterally manually. Initially clear fluid returned upon entering the uterus the presenting part of the fetus was the legs and buttocks. Attempt was made to reach into the uterus and find the 's head to deliver cephalad, however this was unsuccessful and the was delivered in the breech manner. The buttocks were delivered first followed by the legs and the torso the torso was rotated to the left and the right to dislodge the shoulders. A nuchal cord was noted at this time the head was delivered atraumatically and the cord was clamped andcut the was handed over to the waiting scientist immediately. The placenta was delivered manually and cord gases were ordered. The uterus was noted to be boggy and with the lack of Pitocin h anging immediately uterine massage was performed TXA Hemabate and Pitocin was ordered the uterine incision was closed with a #1 Vicryl suture in a running locked fashion followed by a second layer ofa #1 Monocryl suture. There was some areas of oozing on the incision that remained and further #1 Monocryl was used in zgitew-jy-tzohc fashion to create excellent hemostasis. Hemoblast was also placed over the uterine incision to ensure hemostasis. The uterus was returned to the abdomen the gutterswere cleared of all clots and debris. Peritoneum was closed with a 3-0 Vicryl. The fascia was closed with a strata fix PDS suture. The subcutaneous tissue was irrigated. And closed with a 3-0 Vicryl.The skin was closed with a 4-0 Monocryl subcuticular stitch. At this time the infant is being resuscitated by the scientist and Apgars are pending. The weighed 4 pounds 1.8 ounces Surgical findings: Viable female infant Apgars pending weight 4 pounds 1.8 ounces, 4 cm uterine window in the nuchal cord x 1. Presentation: Torsten Breech Amniotic Membrane Rupture Type: Artificial Amniotic Fluid Description: Clear Placental Delivery Description: Manual Removal Placenta Disposition: [facility] Specimen collected: Yes Description of specimen(s) removed: Placenta Cord Vessel Description: 3 Vessels Cord Entanglement: Around neck x 1, loose Nuchal Cord Compression: Without compression Cord Gases: ABG and VBG Infant A gender: Female Delayed Cord Clamping: No Reading Instructor snow ranger: Yes Supervisor Felling Bucking: Leann Duque Tasks completed by public services assistant: Closing and Retracting Additional marketing administrative assistant?: No Complications Complications: No Multi Select Codes Urinary/Genital Urinary/Genital CPT Codes: 14905 Delivery [facility] 10/28/24 5687 Cosigner Signature (if applicable): CC: LUIZ Hutchison; Dr. Rosanna Scales DO; Dr. Gay Gan DO~ Signed [facility]07-10-2025 History and physical note [facility] Medical Records Department [address] [place] [address] H&P Exam - AERONAUTICAL RESEARCH ENGINEER 10/28/24 1806 MR#: [id number] Acct: [id number] Name: CRISTELA SHAH Rep #:[id number] : 1995 28 From: Gay Gan DO PCP: Dr. Rosanna Scales DO Status:ADM IN Location: AP950-2 HPI - General General Date of Admission: 10/28/24 HPI Narrative CRISTELA SHAH, is a 28 y/o @ 32 weeks 1 day who presented to ultrasound thisafternoon for a routing growth scan. While in the ultrasound department the technoted that the heart rate was in the 70's. The patient was brought to L&D and immediately brought to the OR. The heart rate was noted to be 150's so she was walked to the labor room for further observation. While in the labor room the heart rate went down to the 70's again and stayed there. This was confirmed by ultrasound and an LANIE was called. Maternal Data Information MIKE Calculator Estimated Delivery Date Method Current WG Current Estimate 12/22/24 LMP (Certain) 32w 1d Other Estimates 12/24/24 Ultrasound #1 31w 6d PFSH PFSH Medical History Supervision of high risk , antepartum PONV (postoperative nausea and vomiting) Anemia Anxiety Wears contact lenses Wears glasses Low iron Heartburn Non-smoker Hypertension Severely increased blood pressure and swelling during Breech presentation Gestational hypertension Obesity affecting Abnormality of hormone Depression Home Medications ?Medication ?Instructions ?Recorded ?Last Taken ?Type citalopram 40 mg tablet 40 mg PO DAILY depression #3 0 tabs 09/09/22 Unknown Rx pantoprazole 20 mg tablet,delayed 40 mg (2 x 20 mg) PO BID #60 01/05/24 Unknown Rx release TABLETS labetalol 100 mg tablet 100 mg PO BID 03/11/24 Unkno wn History PNV 153-FA 400 mcg-om3 35 mg-dha tab PO 05/07/24 Unkno wn History 25 mg-epa 5 mg-fish oil chew tablet ondansetron 4 mg disintegrating 4 mg PO Q8H PRN nausea and 10/26/24 Unknown Rx tablet vomiting #60 tabs Allergy/AdvReac Type Severity Reaction Status Date / Time No Known Allergies Allergy Verified 10/26/24 14:01 Family History Father Hypertension Surgical History History of esophagogastroduodenoscopy (EGD) Status post section Social History adopted: No household members: spouse and children housing: house number of children: 1 current occupational status: employed current occupation: [employer] current occupational exposures/hazards: No pets and animals: Yes (2) pets and animals: dog(s) history of recent travel: Yes (- February) out of state: Yes out of country: No sexually active: Yes Smoking Status: Never smoker alcohol intake: current details: social not while substance use type: does not use well-balanced diet: daily or most days caffeine: Yes Type: carbonated beverages Number of servings: 1 eating out: 4 or more times/week during the past year weight has: decreased > 10 lbs what type of physical activity do you participate in: none deloris/gnosticist: Restoration seatbelt use: always do you feel safe at home: Yes 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 Date Name GA/Weeks Outcome Route Bth Weight Gen Labor Lgth Anesthesia Del Locatn Provider FOB 09/04/22 Jessica 37 live - full term 6lbs Male s dawson [facility] Vande Velde Delivery Date: 09/04/22 Last Updated by: Abigail Reed Visit Details Expected Delivery Route/Plan prior cs. needs delivered at 38 weeks. but if goes into labor on her own wants to . RLTCS BS with JV Plans Covid status: [] Flu vaccine: [] Tdap vaccine: given Rhogam: na LARC form signed: yes Problem list reviewed and updated with the most current plan of care details and appropriate ordersplaced. Relevant counseling for the gestational age provided. Continue routine care and follow up unless otherwise noted in visit notes/problem list details OB Flowsheet Initial Weight: Not Recorded Date -?-?-?-?-?-?-?-?-?-?-?-?- EGA Weight BP Urine Prot -?-?-?-?-?-?-?-?-?-?-?-?- Glucose FHR FuHt Pres Dilation -?-?-?-?-?-?-?-?-?-?-?-?- Effaced St Visit Note 05/21/24 -?-?-?-?-?-?-?-?-?-?-?-?- 9w 2d 226 lb 6 oz 136/88 -?-?-?-?-?-?-?-?-?-?-?-?- 184 -?-?-?-?-?-?-?-?-?-?-?-?- JV- CRL consiste nt with LMP. declines nipt. taking labetalol. 05/28/24 -?-?-?-?-?-?-?-?-?-?-?-?- 10w 2d 228 lb 6 oz 153/91 -?-?-?-?-?-?-?-?-?-?-?-?- 167 -?-?-?-?-?-?-?-?-?-?-?-?- JV- patient retu rns today for more bleeding. no vaginal infection or ectropion suspected. Mucous with blood seen coming from the cervix. ultrasound shows movement and hearttones. scant evidence of a ela present. bleeding precautions given. pelvic rest encouraged. 06/16/24 -?-?-?-?-?-?-?-?-?-?-?-?- 13w 0d 230 lb 160/95 133/84 Negative -?-?-?-?-?-?-?-?-?-?-?-?- Negative 160 -?-?-?-?-?-?-?-?-?-?-?-?- SM- no vb some c ramping 07/01/24 -?-?-?-?-?-?-?-?-?-?-?-?- 15w 1d 228 lb 4 oz 137/87 -?-?-?-?-?-?-?-?-?-?-?-?- 157 -?-?-?-?-?-?-?-?-?-?-?-?- KW- random spott ing at times and light cramping after BM today. heartbeat and movement on US today. HAs MFM US on 07/29. 07/16/24 -?-?-?-?-?-?-?-?-?-?-?-?- 17w 2d 233 lb 8 oz 135/79 Nega tive -?-?-?-?-?-?-?-?-?-?-?-?- Negative 150 -?-?-?-?-?-?-?-?-?-?-?-?- JV- no lof but s till has spotting from time to time. sees mfm for scan 07/29. no clots or collecting blood on a pad or underwear. 08/11/24 -?-?-?-?-?-?-?-?-?-?-?-?- 21w 0d 236 lb 124/81 Negative -?-?-?-?-?-?-?-?-?-?-?-?- Negative 140 -?-?-?-?-?-?-?-?-?-?-?-?- JV- mfm ultrasou nd notes follow up on placentation but states is posterior. patient states they told her to practice pelvic rest. will inquire. no other complaints. 09/09/24 -?-?-?-?-?-?-?-?-?-?-?-?- 25w 1d 243 lb 137/84 Negative -?-?-?-?-?-?-?-?-?--?-?-?- Negative 140 25 -?-?-?-?-?-?-?-?-?-?-?-?- SM- no vb crampi ng lof good fm 09/30/24 -?-?-?-?-?-?-?-?-?-?-?-?- 28w 1d 245 lb 8 oz 136/78 Nega tive -?-?-?-?-?-?-?-?-?-?-?-?- Negative 148 29 -?-?-?-?-?-?-?-?-?-?-?-?- MH-NO VB, LOF. Good FM.Larc, 28 wk labs. tdap. 10/13/24 -?-?-?-?-?-?-?-?-?-?-?-?- 30w 0d 244 lb 8 oz 144/78 130/72 Negative -?-?-?-?-?-?-?-?-?-?-?-?- Negative 146 31 -?-?-?-?-?-?-?-?-?-?-?-?- MH-No VB, LOF. G ood FM. No headaches/vision changes. Enc to start FE daily 10/26/24 -?-?-?-?-?-?-?-?-?-?-?-?- 31w 6d 249 lb 127/83 Negative -?-?-?-?-?-?-?-?-?-?--?-?- Negative 145 -?-?-?-?-?-?-?-?-?-?-?-?- MH-NST only. Charito ble to keep active on monitor to complete. Deferred and will get BPP. ROS ROS Narrative limited ROS as the patient was immediately brought to the OR and intubated after a brief interview. Constitutional Constitutional: Denies fever(s) ENT HEENT: Denies dizziness Cardiovascular Cardiovascular: Denies chest pain Neurologic Neurologic: Denies dizziness Physical Exam Const alert, oriented x3, no apparent distress and healthy appearing General Appearance: cooperative; Negative for anxious HEENT normocephalic Face and Sinus: normal facial exam Resp normal respiratory effort Effort and Inspection: able to speak in complete sentences Cardio regular rate GI soft to palpation and non-tender Inspection: gravid Palpation: soft; Negative for tender Extremity normal to inspection, full ROM and no clubbing, cyanosis or edema General Extremity: Negative for calf tenderness or edema Skin Lesions: no lesions Rashes: no rashes Psych mental status grossly normal Labs Labs Labs: Blood Type O POSITIVE Antibody Screen NEGATIVE Hct 31.9 % (37-47) L Hgb 10.0 g/dL (12.0-15.0) L Obstetrics Ultrasound Syphilis Total Ab Nonreactive (Nonreactive) Rubella IgG Antibody Reactive (Nonreactive) Hep Bs Antigen Non-Reactive (Nonreactive) Hepatitis C Antibody Non-Reactive (Nonreactive) Chlamydia DNA (VIKTORIYA) Negative (Negative) N.gonorrhoeae DNA (VIKTORIYA) Negative (Negative) HIV 1&2 Antibody Nonreactive (Nonreactive) Glucose 1 Hr 50 gm 72 mg/dL (70-140) Gest Glucose Tolerance MG/DL Rhogam given: No Miscellaneous Test Assessment & Plan (1) bradycardia, antepartum condition or complication: (2) Anemia: QUALIFIERS: Anemia type: iron deficiency Iron deficiency anemia type: unspecified iron deficiency Qualified Code(s): D50.9 - Iron deficiency anemia, unspecified COMMENT: add FE, recheck 4 wk (3) Supervision of high risk , antepartum: COMMENT: PRR , MIKE 12/22/24 , Girl -reagan. PC Jessica, Jarek (4) Obesity affecting : QUALIFIERS: Trimester: third trimester Obesity type affecting : unspecified obesity Qualified Code(s): O99.213 - Obesity complicating , third trimester COMMENT: HgbA1c (5) Hypertension: QUALIFIERS: Hypertension type: primary hypertension Qualified Code(s): I10 - Essential (primary) hypertension COMMENT: labetalol 100 bid deliver 38 weeks. at 32 wk: twice weekly NST, weekly YULIANA and growth US Q4w (6) Hx of section: COMMENT: Gestational HTN & breech. C/S 12/03/24 JV. 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 PLAN: Plan plan is for an emergency section now. 10/28/24 1831 Cosigner Signature (if applicable): CC: Dr. Rosanna Scales DO; Dr. Gay Gan DO~ Signed [facility]07-10-2025 Radiology Diagnostic study note [facility] Imaging Services [address] [place] [address] OB Limited With Biometrics MR#: [id number] Acct: [id number] Name: CRISTELA SHAH Rep #: [id number] : 1995 F 28 From: Raghu Mar MD PCP: Dr. Rosanna Scales DO Status: ADM IN Study:OB Limited With Biometrics Date of Exam : 10/28/24 Exam# [id number] Ordering Dr: Jaqueline Hutchison NP APPRENTICE ELECTRICIAN-Wilber PROCEDURE: OB LIMITED WITH BIOMETRICS 10/28/2024 REASON FOR EXAM: GROWTH 32 WEEKS TECHNIQUE: OB LIMITED WITH BIOMETRICS COMPARISON: 08/24/2022. FINDINGS Intrauterine . BPD: 32 weeks 5 days. 61%. OFD: 33 weeks 6 days. 96%. HC: 33 weeks 2 days. 44%. AC: 32 weeks 5 days. 66%. FL: 30 weeks 0 days. 3%. Cephalic presentation. heart rate of 73-75 beats per minute. Of 8.0 cm. Posteriorly located placenta. No evidence of previa. Estimated weight of 1886 g. MIKE by ultrasound: 12/19/2024. MIKE by LMP: 12/22/2024. US/OB Limited With Biometrics IMPRESSION: heart rate of 73-75 beats per minute. The technologist called the office about the low heart rate and she was sent to the labor and delivery. Femur length of 3%. Reading Location: [id number] CC: SHELLIE-Wilber Hutchison; Dr. Rosanna Scales DO ~ Fuel Cell Designer: Signed [facility]07-09-2025 Radiology Diagnostic study note [facility] Imaging Services [address] [place] [id number] OB Biophysical Prof W/O NST MR#: [id number] Acct: [id number] Name: CRISTELA SHAH Rep #: [id number] : 1995 F 28 From: Javier Sierra MD PCP: Dr. Rosanna Scales DO Status: REG CLI Study:OB Biophysical Prof W/O NST Date of Exa m: 10/26/24 Exam# [id number] Ordering Dr: Jaqueline Hutchison NP PROCEDURE: OB BIOPHYSICAL PROF W/O NST 10/26/2024 REASON FOR EXAM: WELL BEING TECHNIQUE: OB BIOPHYSICAL PROF W/O NST COMPARISON: None FINDINGS Number: 1 Position: Vertex Placental Position: Posterior and not low-lying. Placental Abnormalities: No evidence of previa. ESTIMATED GESTATIONAL AGE: Baseline: 31 weeks and 6 days ESTIMATED DATE OF DELIVERY: Baseline: December 22, 2024. BIOPHYSICAL ASSESSMENT: Amniotic Fluid Volume: 6.8 cm x 4.6 cm Amniotic Fluid Index: 10.4 (8-24 cm normal range) Cardiac Motion: 164 beats per minute (average) Trunk and Limb Motion: Present. Biophysical profile: Breathing movements: 2 Gross body movements: 2 tone: 2 Amniotic fluid volume: 2 Total score: 8/8 US/OB Biophysical Prof W/O NST IMPRESSION: Normal biophysical profile. Reading Location: [place] [address] CC: LUIZ Hutchison; Dr. Rosanna Scales DO ~ Fuel Cell Designer: Signed [facility]06-12-2025 [facility] [address], [address] [place] [address] OFFICE VISIT Date of Service: 09/30/24 MR#: [id number] Acct: [id number] Name: CRISTELA SHAH Rep #: [id number] : 1995 Provider: LUIZ Hutchison Age/Sex: 28/F [place] [facility] [place] Status: Signed with Addenda ADDENDUM by Cande Rogers on 09/30/24 at 1350 Office Procedure Documentation entered by Cande Rogers 09/30/24 13:50: Immunizations Adacel(Tdap Adolesn/Adult)(PF) 2 Lf-(2.5-5-3-5)-5 Lf/0.5 mL IM syringe Performing Provider: LUIZ Graves NP Performing Location: [facility] Administered by: Cande Rogers on 09/30/24 13:49 Dose Route Admin Location Dispensed Lot Number Expiration Date NDC [employer] Cutter 0.5 mL IM Left Deltoid 0.5 mL [id number] 09/18/25 [id number] [employer]PA[employer] VIS Given Date VIS Provided VIS Publication Date 09/30/24 Single Vaccine 24 Eligibility Eligibility Date Funding Source Not Applicable Date _ cc: ~* Signed Intake Vital Signs 07/16/24 11:24 09/09/24 15:28 09/30/24 13:28 Height 5 ft 4 in 5 ft 4 in 5 ft 4 in Weight: 245 lb 8 oz BMI 42.1 BP 136/78 H Intake Visit Reasons: 28wk ob/glucose Mammalogist Required: No Is patient in pain?: No Allergies No Known Allergies Allergy (Verified 09/30/24 13:33) Medications ?Medication ?Instructions ?Recorded ?Confirmed ?Type citalopram 40 mg tablet 40 mg PO DAILY depression #3 0 tabs 09/09/22 09/30/24 Rx pantoprazole 20 mg tablet,delayed 40 mg (2 x 20 mg) PO BID #60 01/05/24 09/30/24 Rx release TABLETS labetalol 100 mg tablet 100 mg PO BID 03/11/2409/30 History PNV 153-FA 400 mcg-om3 35 mg-dha tab PO 05/07/2409/30 History 25 mg-epa 5 mg-fish oil chew tablet ondansetron 4 mg disintegrating 4 mg PO Q8H PRN nausea and 05/21/24 09/30/24 Rx tablet vomiting #60 tabs Last Menstrual Period: 03/17/24 Zika: Zika virus screening: Negative : No PFSH PFSH Medical History Supervision of high risk , antepartum PONV (postoperative nausea and vomiting) Anemia Anxiety Wears contact lenses Wears glasses Low iron Heartburn Non-smoker Hypertension Severely increased blood pressure and swelling during Breech presentation Gestational hypertension Obesity affecting Abnormality of hormone Depression Surgical History History of esophagogastroduodenoscopy (EGD) Status post section Family History Father Hypertension Social History adopted: No household members: spouse and children housing: house number of children: 1 current occupational status: employed current occupation: [employer] current occupational exposures/hazards: No pets and animals: Yes (2) pets and animals: dog(s) history of recent travel: Yes (- February) out of state: Yes out of country: No sexually active: Yes Smoking Status: Never smoker alcohol intake: current details: social not while substance use type: does not use well-balanced diet: daily or most days caffeine: Yes Type: carbonated beverages Number of servings: 1 eating out: 4 or more times/week during the past year weight has: decreased > 10 lbs what type of physical activity do you participate in: none deloris/gnosticist: Restoration seatbelt use: always do you feel safe at home: Yes 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 Date Name GA/Weeks Outcome Route Bth Weight Gen Labor Lgth Anesthesia Del Locatn Provider FOB 09/04/22 Jessica 37 live - full term 6lbs Male s d[facility] Delivery Date: 09/04/22 Last Updated by: Abigail Reed HPI 28wk ob/glucose Details: CRISTELA SHAH is a 28 year old who presents for routine OB visit. OB Visit MIKE Calculator Estimated Delivery Date Method Current WG Current Estimate 12/22/24 LMP (Certain) 28w 1d Other Estimates 12/24/24 Ultrasound #1 27w 6d Expected Delivery Route/Plan prior cs. needs delivered at 38 weeks. but if goes into labor on her own wants to . RLTCS BS with AVIS Specific Issue/Plans Covid status: [] Flu vaccine: [] Tdap vaccine: given Rhogam: na LARC form signed: yes Problem list reviewed and updated with the most current plan of care details and appropriate ordersplaced. Relevant counseling for the gestational age provided. Continue routine care and follow up unless otherwise noted in visit notes/problem list details Initial Weight: Not Recorded Date -?-?-?-?-?-?-?-?-?-?-?-?- EGA Weight BP Urine Prot -?-?-?-?-?-?-?-?-?-?-?-?- Glucose FHR FuHt Pres Dilation -?-?-?-?-?-?-?-?-?-?-?-?- Effaced St Visit Note 05/21/24 -?-?-?-?-?-?-?-?-?-?-?-?- 9w 2d 226 lb 6 oz 136/88 -?-?-?-?-?-?-?-?-?-?-?-?- 184 -?-?-?-?-?-?-?-?-?-?-?-?- JV- CRL consiste nt with LMP. declines nipt. taking labetalol. 05/28/24 -?-?-?-?-?-?-?-?-?-?-?-?- 10w 2d 228 lb 6 oz 153/91 -?-?-?-?-?-?-?-?-?-?-?-?- 167 -?-?-?-?-?-?-?-?-?-?-?-?- JV- patient retu rns today for more bleeding. no vaginal infection or ectropion suspected. Mucous with blood seen coming from the cervix. ultrasound shows movement and hearttones. scant evidence of a ela present. bleeding precautions given. pelvic rest encouraged. 06/16/24 -?-?-?-?-?-?-?-?-?-?-?-?- 13w 0d 230 lb 160/95 133/84 Negative -?-?-?-?-?-?-?-?-?-?-?-?- Negative 160 -?-?-?-?-?-?-?-?-?-?-?-?- SM- no vb some c ramping 07/01/24 -?-?-?-?-?-?-?-?-?-?-?-?- 15w 1d 228 lb 4 oz 137/87 -?-?-?-?-?-?-?-?-?-?-?-?- 157 -?-?-?-?-?-?-?-?-?-?-?-?- KW- random spott ing at times and light cramping after BM today. heartbeat and movement on US today. HAs MFM US on 07/29. 07/16/24 -?-?-?-?-?-?-?-?-?-?-?-?- 17w 2d 233 lb 8 oz 135/79 Nega tive -?-?-?-?-?-?-?-?-?-?-?-?- Negative 150 -?-?-?-?-?-?-?-?-?-?--?-?- JV- no lof but s till has spotting from time to time. sees mfm for scan 07/29. no clots or collecting blood on a pad or underwear. 08/11/24 -?-?-?-?-?-?-?-?-?-?-?-?- 21w 0d 236 lb 124/81 Negative -?-?-?-?-?-?-?-?-?-?-?-?- Negative 140 -?-?-?-?-?-?-?-?-?-?-?-?- JV- mfm ultrasou nd notes follow up on placentation but states is posterior. patient states they told her to practice pelvic rest. will inquire. no other complaints. 09/09/24 -?-?-?-?-?-?-?-?-?-?-?-?- 25w 1d 243 lb 137/84 Negative -?-?-?-?-?-?-?-?-?-?-?-?- Negative 140 25 -?-?-?-?-?-?-?-?-?-?-?-?- SM- no vb crampi ng lof good fm 09/30/24 -?-?-?-?-?-?-?-?--?-?-?-?- 28w 1d 245 lb 8 oz 136/78 -?-?-?-?-?-?-?-?-?-?-?-?- 148 29 -?-?-?-?-?-?-?-?-?-?-?-?- MH-NO VB, LOF. Good FM.Larc, 28 wk labs. tdap. ACOG First Trimester First Trimester: Discussed Second Trimester Second Trimester: Signs and Symptoms of Labor, Selecting a care provider, Reproductive Life Planning & Contreception, Care Planning, Depression/Anxiety and Intimate Partner Violence; Discussed Tobacco Cessation Third Trimester Third Trimester: Pain Management Plans, Labor support person(s), Immediate Larc, Circumcision preference, Movement Monitoring, Signs and Symptoms of Preeclampsia, Infant Feeding No , Education and Family Medical Leave or Disability Forms; Discussed Trial of Labor after Counseling ROS Const Reports system reviewed and no additional complaints, except as documented GI Denies abdominal pain, Denies nausea and Denies vomiting Exam Const General: cooperative Nutritional Appearance: well nourished GI Palpation: soft, nontender and other (gravid) Coding Level of Care Code OB Routine Diagnoses Supervision of high risk , antepartum O09.90 28 weeks gestation of Z3A.28 Weeks of gestation: 28 weeks Obesity affecting in third trimester, unspecified obesity type O99.213 Trimester: third trimester Obesity type affecting : unspecified obesity Primary hypertension I10 Hypertension type: primary hypertension Hx of section Z98.891 Depression with anxiety F41.8 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 WALLACE Lopez, Jarek (2) : Status: Acute Qualifiers: Weeks of gestation: 28 weeks Qualified Code(s): Z3A.28 - 28 weeks gestation of Comment: elects NIPT with gender (3) Obesity affecting : Status: Acute Qualifiers: Trimester: third trimester Obesity type affecting : unspecified obesity Qualified Code(s):O99.213 - Obesity complicating , third trimester Comment: HgbA1c (4) Hypertension: Status: Chronic Qualifiers: Hypertension type: primary hypertension Qualified Code(s): I10 - Essential (primary) hypertension Comment: labetalol 100 bid deliver 38 weeks (5) Hx of section: Status: Acute Comment: Gestational HTN & breech. C/S 12/03/24 JV. 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 Orders: Orders POC Urinalysis 2 Dip (Clinic) Today Tdap Immunization Today Z23 - Encounter for immunization Medications: New Adacel(Tdap Adolesn/Adult)(PF) (diph,pertuss(acel),tet vac(PF)) 0.5 mL IM ONCE 0.5 mL 0RF NS Z23 - Encounter for immunization Plan problem list reviewed and updated for most current plan of care and appropriate orders placed. Relevant counseling for the gestational age appropriate provided and ACOG education checklist updated. Continue routine care and follow up. 09/30/24 1345 s APPRENTICE ELECTRICIAN APPRENTICE ELECTRICIAN-C> Date _ Jaqueline Hutchison APPRENTICE ELECTRICIAN APPRENTICE ELECTRICIAN-C Cosigner Signature: Date (if applicable) CC: ~ [facility]03-28-2025 Evaluation note* Diagnosis Onset Date Resolution Status Admit Date 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 July 16, 2024 11:22am Constipation acute July 16, 2024 11:22am Depression with anxiety acute [facility] 2024 11:22am Hx of section acute [facility] 2024 11:22am Obesity affecting acute July 16, 2024 11:22am acute July 16 11:22am Supervision of high risk , antepartum acute June 11:22am Asthma chronic July 16 11:22am Eosinophilic esophagitis chronic July 16, 2024 11:22am Hypertension chronic July 16, 2024 11:22am Multiple food allergies chronic M arch 2024 11:22am Bleeding in early resolved July 16, 2024 11:22am Eosinophilic esophagitis chronic August 10, 2024 2:28pm 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 August 11, 2024 2:24pm Constipation acute August 11, 2024 2:24pm Depression with anxiety acute A pril 2024 2:24pm Hx of section acute Ap ril 2024 2:24pm Obesity affecting acute August 11, 2024 2:24pm acute August 11 2:24pm Supervision of high risk , antepartum acute July 2:24pm Asthma chronic August 11 2:24pm Eosinophilic esophagitis chronic August 11, 2024 2:24pm Hypertension chronic August 11, 2024 2:24pm Multiple food allergies chronic A pril 2024 2:24pm Bleeding in early resolved August 11, 2024 2:24pm 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 September 09, 2024 3:23pm Constipation acute September 09 3:23pm Depression with anxiety acute M ay 2024 3:23pm Hx of section acute Ma y 2024 3:23pm Obesity affecting acute September 09, 2024 3:23pm acute September 09, 2024 3:23pm Supervision of high risk , antepartum acute September 09, 2024 3:23pm Asthma chronic September 09, 2024 3:23pm Eosinophilic esophagitis chronic September 09, 2024 3:23pm Hypertension chronic September 09 3:23pm Multiple food allergies chronic M ay 2024 3:23pm Bleeding in early resolved September 09, 2024 3:23pm 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 September 30, 2024 1:25pm Depression with anxiety acute J une 2024 1:25pm Hx of section acute Ju ne 2024 1:25pm Obesity affecting acute September 30, 2024 1:25pm acute September 30 1:25pm Supervision of high risk , antepartum acute September 30, 2024 1:25pm Hypertension chronic September 30, 025 1:25pm Anemia acute October 13 1:39pm 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 October 13, 2024 1:39pm Depression with anxiety acute 2024 1:39pm Hx of section acute Ju ne 2024 1:39pm Obesity affecting acute October 13, 2024 1:39pm acute October 13 1:39pm Supervision of high risk , antepartum acute October 13, 2024 1:39pm Asthma chronic October 13 1:39pm Hypertension chronic October 13, 025 1:39pm Multiple food allergies chronic J une 2024 1:39pm 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 October 26, 2024 1:57pm Depression with anxiety acute 2024 1:57pm Hx of section acute 2024 1:57pm Obesity affecting acute October 26, 2024 1:57pm acute October 26, 2024 1:57pm Supervision of high risk , antepartum acute October 26, 2024 1:57pm Asthma chronic October 26, 2024 1:57pm Eosinophilic esophagitis chronic October 26, 2024 1:57pm Hypertension chronic October 26 1:57pm Multiple food allergies chronic J qiana2024 1:57pm Anemia acute October 28 5:02pm 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 October 28, 2024 5:02pm Contraception management acute October 28, 2024 5:02pm bradycardia, antepartu m condition or complication acute October 192024 5:02pm Hx of section acute 2024 5:02pm Obesity affecting acute October 28, 2024 5:02pm acute October 28 5:02pm Status post section acute October 28, 2024 5:02pm Supervision of high risk , antepartum acute October 28, 2024 5:02pm Hypertension chronic October 28, 2 025 5:02pm [facility] Work Phone: 1(240) 543-236203-28-2025 Evaluation note* Diagnosis Onset Date Resolution Status Admit Date 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 July 16, 2024 11:22am Constipation acute July 16, 2024 11:22am Depression with anxiety acute M arch 2024 11:22am Hx of section acute Ma h 2024 11:22am Obesity affecting acute July 16, 2024 11:22am acute July 16 11:22am Supervision of high risk , antepartum acute June 11:22am Asthma chronic July 16 11:22am Eosinophilic esophagitis chronic July 16, 2024 11:22am Hypertension chronic July 16, 2024 11:22am Multiple food allergies chronic M arch 2024 11:22am Bleeding in early resolved July 16, 2024 11:22am Eosinophilic esophagitis chronic August 10, 2024 2:28pm 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 August 11, 2024 2:24pm Constipation acute August 11, 2024 2:24pm Depression with anxiety acute A pril 2024 2:24pm Hx of section acute Ap ril 2024 2:24pm Obesity affecting acute August 11, 2024 2:24pm acute August 11 2:24pm Supervision of high risk , antepartum acute July 2:24pm Asthma chronic August 11 2:24pm Eosinophilic esophagitis chronic August 11, 2024 2:24pm Hypertension chronic August 11, 2024 2:24pm Multiple food allergies chronic A pril 2024 2:24pm Bleeding in early resolved August 11, 2024 2:24pm 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 September 09, 2024 3:23pm Constipation acute September 09 3:23pm Depression with anxiety acute M ay 2024 3:23pm Hx of section acute Ma y 2024 3:23pm Obesity affecting acute September 09, 2024 3:23pm acute September 09, 2024 3:23pm Supervision of high risk , antepartum acute September 09, 2024 3:23pm Asthma chronic September 09, 2024 3:23pm Eosinophilic esophagitis chronic September 09, 2024 3:23pm Hypertension chronic September 09 3:23pm Multiple food allergies chronic M ay 2024 3:23pm Bleeding in early resolved September 09, 2024 3:23pm 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 September 30, 2024 1:25pm Depression with anxiety acute J une 2024 1:25pm Hx of section acute Ju 2024 1:25pm Obesity affecting acute September 30, 2024 1:25pm acute September 30 1:25pm Supervision of high risk , antepartum acute September 30, 2024 1:25pm Hypertension chronic September 30, 2 025 1:25pm Anemia acute October 13 1:39pm 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 October 13, 2024 1:39pm Depression with anxiety acute J une 2024 1:39pm Hx of section acute Ju ne 2024 1:39pm Obesity affecting acute October 13, 2024 1:39pm acute October 13 1:39pm Supervision of high risk , antepartum acute October 13, 2024 1:39pm Asthma chronic October 13 1:39pm Hypertension chronic October 13, 2 025 1:39pm Multiple food allergies chronic J une 2024 1:39pm 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 October 26, 2024 1:57pm Depression with anxiety acute J qiana 2024 1:57pm Hx of section acute 2024 1:57pm Obesity affecting acute October 26, 2024 1:57pm acute October 26, 2024 1:57pm Supervision of high risk , antepartum acute October 26, 2024 1:57pm Asthma chronic October 26, 2024 1:57pm Eosinophilic esophagitis chronic October 26, 2024 1:57pm Hypertension chronic October 26 1:57pm Multiple food allergies chronic J qiana 2024 1:57pm Anemia acute October 28 5:02pm 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 October 28, 2024 5:02pm Contraception management acute October 28, 2024 5:02pm bradycardia, antepartu m condition or complication acute October 192024 5:02pm Hx of section acute 2024 5:02pm Obesity affecting acute October 28, 2024 5:02pm acute October 28 5:02pm Status post section acute October 28, 2024 5:02pm Supervision of high risk , antepartum acute October 28, 2024 5:02pm Hypertension chronic October 28, 2 025 5:02pm Status post section acute November 04, 2024 3:00pm UTI (urinary tract infection) acute November 04, 2024 3:00pm [facility] Work Phone: 1(924) 694-670203-28-2025 Evaluation note* Diagnosis Onset Date Resolution Status Admit Date Constipation acute July 16, 2024 11:22am Depression with anxiety acute arch 2024 11:22am Asthma chronic July 16 11:22am Eosinophilic esophagitis chronic July 16, 2024 11:22am Hypertension chronic July 16, 2024 11:22am Multiple food allergies chronic arch 2024 11:22am Bleeding in early resolved July 16, 2024 11:22am 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 July 16, 2024 11:22am Hx of section inactive [facility] 2024 11:22am Obesity affecting inactive July 16, 2024 11:22am inactive July 16 11:22am Supervision of high risk , antepartum inactive June 11:22am Eosinophilic esophagitis chronic August 10, 2024 2:28pm Constipation acute August 11, 2024 2:24pm Depression with anxiety acute A pril 2024 2:24pm Asthma chronic August 11 2:24pm Eosinophilic esophagitis chronic August 11, 2024 2:24pm Hypertension chronic August 11, 2024 2:24pm Multiple food allergies chronic A pril 2024 2:24pm Bleeding in early resolved August 11, 2024 2:24pm 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 August 11, 2024 2:24pm Hx of section inactive [facility] 2024 2:24pm Obesity affecting inactive August 11, 2024 2:24pm inactive August 11 2:24pm Supervision of high risk , antepartum inactive July 2:24pm Constipation acute September 09 3:23pm Depression with anxiety acute [facility] 2024 3:23pm Asthma chronic September 09, 2024 3:23pm Eosinophilic esophagitis chronic September 09, 2024 3:23pm Hypertension chronic September 09 3:23pm Multiple food allergies chronic M ay 2024 3:23pm Bleeding in early resolved September 09, 2024 3:23pm 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 September 09, 2024 3:23pm Hx of section inactive [facility] 2024 3:23pm Obesity affecting inactive September 09, 2024 3:23pm inactive September 09, 2024 3:23pm Supervision of high risk , antepartum inactive September 09, 2024 3:23pm Depression with anxiety acute J une 2024 1:25pm Hypertension chronic September 30, 2 025 1:25pm 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 September 30, 2024 1:25pm Hx of section inactive Ju ne 2024 1:25pm Obesity affecting inactive September 30, 2024 1:25pm inactive September 30 1:25pm Supervision of high risk , antepartum inactive September 30, 2024 1:25pm Anemia acute October 13 1:39pm Depression with anxiety acute J une 2024 1:39pm Asthma chronic October 13 1:39pm Hypertension chronic October 13, 2 025 1:39pm Multiple food allergies chronic J une 2024 1:39pm 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 October 13, 2024 1:39pm Hx of section inactive Ju ne 2024 1:39pm Obesity affecting inactive October 13, 2024 1:39pm inactive October 13 1:39pm Supervision of high risk , antepartum inactive October 13, 2024 1:39pm Depression with anxiety acute J qiana 2024 1:57pm Asthma chronic October 26, 2024 1:57pm Eosinophilic esophagitis chronic October 26, 2024 1:57pm Hypertension chronic October 26 1:57pm Multiple food allergies chronic J qiana 2024 1:57pm 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 October 26, 2024 1:57pm Hx of section inactive Ju ly 2024 1:57pm Obesity affecting inactive October 26, 2024 1:57pm inactive October 26, 2024 1:57pm Supervision of high risk , antepartum inactive October 26, 2024 1:57pm Anemia acute October 28 5:02pm Status post section acute October 28, 2024 5:02pm Hypertension chronic October 28, 2 025 5:02pm 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 October 28, 2024 5:02pm Contraception management inactive October 28, 2024 5:02pm bradycardia, antepartu m condition or complication inactive October 192024 5:02pm Hx of section inactive Ju 2024 5:02pm Obesity affecting inactive October 28, 2024 5:02pm inactive October 28 5:02pm Supervision of high risk , antepartum inactive October 28, 2024 5:02pm Status post section acute November 04, 2024 3:00pm UTI (urinary tract infection) acute November 04, 2024 3:00pm [place] [employer] Work Phone: 1([phone]) 288-976703-13-2025 Evaluation note* Diagnosis Onset Date Resolution Status Admit Date 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 July 01, 2024 3:06pm Constipation acute July 01, 2024 3:06pm Depression with anxiety acute [facility] 2024 3:06pm Hx of section acute [facility] 2024 3:06pm Obesity affecting acute July 01, 2024 3:06pm acute July 01 3:06pm Supervision of high risk , antepartum acute June 3:06pm Asthma chronic July 01 3:06pm Eosinophilic esophagitis chronic July 01, 2024 3:06pm Hypertension chronic July 01, 2024 3:06pm Multiple food allergies chronic [facility] 2024 3:06pm Bleeding in early resolved July 01, 2024 3:06pm 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 July 16, 2024 11:22am Constipation acute July 16, 2024 11:22am Depression with anxiety acute [facility] 2024 11:22am Hx of section acute [facility] 2024 11:22am Obesity affecting acute July 16, 2024 11:22am acute July 16 11:22am Supervision of high risk , antepartum acute June 11:22am Asthma chronic July 16 11:22am Eosinophilic esophagitis chronic July 16, 2024 11:22am Hypertension chronic July 16, 2024 11:22am Multiple food allergies chronic M arch 2024 11:22am Bleeding in early resolved July 16, 2024 11:22am Eosinophilic esophagitis chronic August 10, 2024 2:28pm 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 August 11, 2024 2:24pm Constipation acute August 11, 2024 2:24pm Depression with anxiety acute A pril 2024 2:24pm Hx of section acute Ap ril 2024 2:24pm Obesity affecting acute August 11, 2024 2:24pm acute August 11 2:24pm Supervision of high risk , antepartum acute July 2:24pm Asthma chronic August 11 2:24pm Eosinophilic esophagitis chronic August 11, 2024 2:24pm Hypertension chronic August 11, 2024 2:24pm Multiple food allergies chronic A pril 2024 2:24pm Bleeding in early resolved August 11, 2024 2:24pm 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 September 09, 2024 3:23pm Constipation acute September 09 3:23pm Depression with anxiety acute M ay 2024 3:23pm Hx of section acute Ma y 2024 3:23pm Obesity affecting acute September 09, 2024 3:23pm acute September 09, 2024 3:23pm Supervision of high risk , antepartum acute September 09, 2024 3:23pm Asthma chronic September 09, 2024 3:23pm Eosinophilic esophagitis chronic September 09, 2024 3:23pm Hypertension chronic September 09 3:23pm Multiple food allergies chronic M ay 2024 3:23pm Bleeding in early resolved September 09, 2024 3:23pm 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 September 30, 2024 1:25pm Depression with anxiety acute J une 2024 1:25pm Hx of section acute Ju ne 2024 1:25pm Obesity affecting acute September 30, 2024 1:25pm acute September 30 1:25pm Supervision of high risk , antepartum acute September 30, 2024 1:25pm Hypertension chronic September 30, 2 025 1:25pm Anemia acute October 13 1:39pm 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 October 13, 2024 1:39pm Depression with anxiety acute J une 2024 1:39pm Hx of section acute Ju ne 2024 1:39pm Obesity affecting acute October 13, 2024 1:39pm acute October 13 1:39pm Supervision of high risk , antepartum acute October 13, 2024 1:39pm Asthma chronic October 13 1:39pm Hypertension chronic October 13, 025 1:39pm Multiple food allergies chronic J une 2024 1:39pm Anemia acute October 26, 2024 1:57pm 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 October 26, 2024 1:57pm Constipation acute October 26 1:57pm Contraception management acute October 26, 2024 1:57pm Depression with anxiety acute J qiana 2024 1:57pm Hx of section acute ly 2024 1:57pm Obesity affecting acute October 26, 2024 1:57pm acute October 26, 2024 1:57pm Supervision of high risk , antepartum acute October 26, 2024 1:57pm Asthma chronic October 26, 2024 1:57pm Eosinophilic esophagitis chronic October 26, 2024 1:57pm Hypertension chronic October 26 1:57pm Multiple food allergies chronic J qiana2024 1:57pm [place] [employer] Work Phone: 1(930) 946-319103-13-2025 Evaluation note* Diagnosis Onset Date Resolution Status Admit Date 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 July 01, 2024 3:06pm Constipation acute July 01, 2024 3:06pm Depression with anxiety acute [facility] 2024 3:06pm Hx of section acute [facility] 2024 3:06pm Obesity affecting acute July 01, 2024 3:06pm acute July 01 3:06pm Supervision of high risk , antepartum acute June 3:06pm Asthma chronic July 01 3:06pm Eosinophilic esophagitis chronic July 01, 2024 3:06pm Hypertension chronic July 01, 2024 3:06pm Multiple food allergies chronic [facility] 2024 3:06pm Bleeding in early resolved July 01, 2024 3:06pm 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 July 16, 2024 11:22am Constipation acute July 16, 2024 11:22am Depression with anxiety acute M arch 2024 11:22am Hx of section acute [facility] 2024 11:22am Obesity affecting acute July 16, 2024 11:22am acute July 16 11:22am Supervision of high risk , antepartum acute June 11:22am Asthma chronic July 16 11:22am Eosinophilic esophagitis chronic July 16, 2024 11:22am Hypertension chronic July 16, 2024 11:22am Multiple food allergies chronic M arch 2024 11:22am Bleeding in early resolved July 16, 2024 11:22am Eosinophilic esophagitis chronic August 10, 2024 2:28pm 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 August 11, 2024 2:24pm Constipation acute August 11, 2024 2:24pm Depression with anxiety acute A pril 2024 2:24pm Hx of section acute Ap ril 2024 2:24pm Obesity affecting acute August 11, 2024 2:24pm acute August 11 2:24pm Supervision of high risk , antepartum acute July 2:24pm Asthma chronic August 11 2:24pm Eosinophilic esophagitis chronic August 11, 2024 2:24pm Hypertension chronic August 11, 2024 2:24pm Multiple food allergies chronic A pril 2024 2:24pm Bleeding in early resolved August 11, 2024 2:24pm 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 September 09, 2024 3:23pm Constipation acute September 09 3:23pm Depression with anxiety acute M ay 2024 3:23pm Hx of section acute Ma y 2024 3:23pm Obesity affecting acute September 09, 2024 3:23pm acute September 09, 2024 3:23pm Supervision of high risk , antepartum acute September 09, 2024 3:23pm Asthma chronic September 09, 2024 3:23pm Eosinophilic esophagitis chronic September 09, 2024 3:23pm Hypertension chronic September 09 3:23pm Multiple food allergies chronic M ay 2024 3:23pm Bleeding in early resolved September 09, 2024 3:23pm 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 September 30, 2024 1:25pm Depression with anxiety acute J une 2024 1:25pm Hx of section acute Ju ne 2024 1:25pm Obesity affecting acute September 30, 2024 1:25pm acute September 30 1:25pm Supervision of high risk , antepartum acute September 30, 2024 1:25pm Hypertension chronic September 30, 2 025 1:25pm Anemia acute October 13 1:39pm 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 October 13, 2024 1:39pm Depression with anxiety acute J une 2024 1:39pm Hx of section acute Ju ne 2024 1:39pm Obesity affecting acute October 13, 2024 1:39pm acute October 13 1:39pm Supervision of high risk , antepartum acute October 13, 2024 1:39pm Asthma chronic October 13 1:39pm Hypertension chronic October 13, 2 025 1:39pm Multiple food allergies chronic J une 2024 1:39pm 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 October 26, 2024 1:57pm Depression with anxiety acute J qiana 2024 1:57pm Hx of section acute 2024 1:57pm Obesity affecting acute October 26, 2024 1:57pm acute October 26, 2024 1:57pm Supervision of high risk , antepartum acute October 26, 2024 1:57pm Asthma chronic October 26, 2024 1:57pm Eosinophilic esophagitis chronic October 26, 2024 1:57pm Hypertension chronic October 26 1:57pm Multiple food allergies chronic J qiana 2024 1:57pm Anemia acute October 28 5:02pm 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 October 28, 2024 5:02pm Contraception management acute October 28, 2024 5:02pm bradycardia, antepartu m condition or complication acute October 192024 5:02pm Hx of section acute Ju 2024 5:02pm Obesity affecting acute October 28, 2024 5:02pm acute October 28 5:02pm Status post section acute October 28, 2024 5:02pm Supervision of high risk , antepartum acute October 28, 2024 5:02pm Hypertension chronic October 28, 5:02pm [facility] Work Phone: 1(360) 398-430502-26-2025 Evaluation note* Diagnosis Onset Date Resolution Status Admit Date 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 June 16, 2024 2:53pm Constipation acute May 2:53pm Depression with anxiety acute F ebruary 2024 2:53pm Hx of section acute Fe bruary 2024 2:53pm Obesity affecting acute June 16, 2024 2:53pm acute June 16, 2024 2:53pm Supervision of high risk , antepartum acute May 232024 2:53pm Asthma chronic June 16, 2024 2:53pm Eosinophilic esophagitis chronic June 16, 2024 2:53pm Hypertension chronic May 2:53pm Multiple food allergies chronic [facility] 2024 2:53pm Bleeding in early resolved June 16, 2024 2:53pm 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 July 01, 2024 3:06pm Constipation acute July 01, 2024 3:06pm Depression with anxiety acute [facility] 2024 3:06pm Hx of section acute [facility] 2024 3:06pm Obesity affecting acute July 01, 2024 3:06pm acute July 01 3:06pm Supervision of high risk , antepartum acute June 3:06pm Asthma chronic July 01 3:06pm Eosinophilic esophagitis chronic July 01, 2024 3:06pm Hypertension chronic July 01, 2024 3:06pm Multiple food allergies chronic [facility] 2024 3:06pm Bleeding in early resolved July 01, 2024 3:06pm 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 July 16, 2024 11:22am Constipation acute July 16, 2024 11:22am Depression with anxiety acute [facility] 2024 11:22am Hx of section acute [facility] 2024 11:22am Obesity affecting acute July 16, 2024 11:22am acute July 16 11:22am Supervision of high risk , antepartum acute June 11:22am Asthma chronic July 16 11:22am Eosinophilic esophagitis chronic July 16, 2024 11:22am Hypertension chronic July 16, 2024 11:22am Multiple food allergies chronic M arch 2024 11:22am Bleeding in early resolved July 16, 2024 11:22am Eosinophilic esophagitis chronic August 10, 2024 2:28pm 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 August 11, 2024 2:24pm Constipation acute August 11, 2024 2:24pm Depression with anxiety acute A pril 2024 2:24pm Hx of section acute Ap ril 2024 2:24pm Obesity affecting acute August 11, 2024 2:24pm acute August 11 2:24pm Supervision of high risk , antepartum acute July 2:24pm Asthma chronic August 11 2:24pm Eosinophilic esophagitis chronic August 11, 2024 2:24pm Hypertension chronic August 11, 2024 2:24pm Multiple food allergies chronic A pril 2024 2:24pm Bleeding in early resolved August 11, 2024 2:24pm 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 September 09, 2024 3:23pm Constipation acute September 09 3:23pm Depression with anxiety acute M ay 2024 3:23pm Hx of section acute Ma y 2024 3:23pm Obesity affecting acute September 09, 2024 3:23pm acute September 09, 2024 3:23pm Supervision of high risk , antepartum acute September 09, 2024 3:23pm Asthma chronic September 09, 2024 3:23pm Eosinophilic esophagitis chronic September 09, 2024 3:23pm Hypertension chronic September 09 3:23pm Multiple food allergies chronic M ay 2024 3:23pm Bleeding in early resolved September 09, 2024 3:23pm 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 September 30, 2024 1:25pm Depression with anxiety acute J une 2024 1:25pm Hx of section acute Ju 2024 1:25pm Obesity affecting acute September 30, 2024 1:25pm acute September 30 1:25pm Supervision of high risk , antepartum acute September 30, 2024 1:25pm Hypertension chronic September 30, 1:25pm [facility] Work Phone: 1(226) 944-718202-26-2025 Evaluation note* Diagnosis Onset Date Resolution Status Admit Date 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 June 16, 2024 2:53pm Constipation acute May 2:53pm Depression with anxiety acute [facility] 2024 2:53pm Hx of section acute Fe [facility] 2024 2:53pm Obesity affecting acute June 16, 2024 2:53pm acute June 16, 2024 2:53pm Supervision of high risk , antepartum acute May 232024 2:53pm Asthma chronic June 16, 2024 2:53pm Eosinophilic esophagitis chronic June 16, 2024 2:53pm Hypertension chronic May 2:53pm Multiple food allergies chronic F [facility] 2024 2:53pm Bleeding in early resolved June 16, 2024 2:53pm 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 July 01, 2024 3:06pm Constipation acute July 01, 2024 3:06pm Depression with anxiety acute [facility] 2024 3:06pm Hx of section acute [facility] 2024 3:06pm Obesity affecting acute July 01, 2024 3:06pm acute July 01 3:06pm Supervision of high risk , antepartum acute June 3:06pm Asthma chronic July 01 3:06pm Eosinophilic esophagitis chronic July 01, 2024 3:06pm Hypertension chronic July 01, 2024 3:06pm Multiple food allergies chronic [facility] 2024 3:06pm Bleeding in early resolved July 01, 2024 3:06pm 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 July 16, 2024 11:22am Constipation acute July 16, 2024 11:22am Depression with anxiety acute [facility] 2024 11:22am Hx of section acute [facility] 2024 11:22am Obesity affecting acute July 16, 2024 11:22am acute July 16 11:22am Supervision of high risk , antepartum acute June 11:22am Asthma chronic July 16 11:22am Eosinophilic esophagitis chronic July 16, 2024 11:22am Hypertension chronic July 16, 2024 11:22am Multiple food allergies chronic M arch 2024 11:22am Bleeding in early resolved July 16, 2024 11:22am Eosinophilic esophagitis chronic August 10, 2024 2:28pm 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 August 11, 2024 2:24pm Constipation acute August 11, 2024 2:24pm Depression with anxiety acute A pril 2024 2:24pm Hx of section acute Ap ril 2024 2:24pm Obesity affecting acute August 11, 2024 2:24pm acute August 11 2:24pm Supervision of high risk , antepartum acute July 2:24pm Asthma chronic August 11 2:24pm Eosinophilic esophagitis chronic August 11, 2024 2:24pm Hypertension chronic August 11, 2024 2:24pm Multiple food allergies chronic A pril 2024 2:24pm Bleeding in early resolved August 11, 2024 2:24pm 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 September 09, 2024 3:23pm Constipation acute September 09 3:23pm Depression with anxiety acute M ay 2024 3:23pm Hx of section acute Ma y 2024 3:23pm Obesity affecting acute September 09, 2024 3:23pm acute September 09, 2024 3:23pm Supervision of high risk , antepartum acute September 09, 2024 3:23pm Asthma chronic September 09, 2024 3:23pm Eosinophilic esophagitis chronic September 09, 2024 3:23pm Hypertension chronic September 09 3:23pm Multiple food allergies chronic M ay 2024 3:23pm Bleeding in early resolved September 09, 2024 3:23pm 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 September 30, 2024 1:25pm Depression with anxiety acute J une 2024 1:25pm Hx of section acute Ju ne 2024 1:25pm Obesity affecting acute September 30, 2024 1:25pm acute September 30 1:25pm Supervision of high risk , antepartum acute September 30, 2024 1:25pm Hypertension chronic September 30 1:25pm Anemia acute October 13 1:39pm 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 Author Type: Physician Type: Progress Notes Filed: 08/22/2023 15:40 Note Text: ASSESSMENT/PLAN: -Eosinophilic esophagitis: Continue Protonix 40 mg twice daily Additional treatment options for EoE including empiric elimination diets, swallowed corticosteroids and Dupixent were discussed with the patient. Patient will start with strict elimination of cows milk and gluten from her diet. Will reevaluate in 2 to 3 months. Depending on clinical course, may consider eliminating additional foods such as soybean, eggs, peanuts/tree nuts and fish/shellfish from her diet in a stepwise fashion. Patient instructed to ensure she has adequate calcium and vitamin D intake despite her dietary restrictions. Depending on clinical course, consult with nutrition may be warranted. Continue to follow-up with gastroenterology. -Allergic rhinitis: Aggressive environmental controls Allergy skin tests will be completed to inhalant allergens at her next visit (40). Instructions provided on antihistamine avoidance prior to completion of allergy testing. Recommend that she begin regular use of fluticasone nasal spray 1- 2 sprays to each nostril once daily in August, September, November, December and January (grass and ragweed pollen seasons) Start cetirizine 10 mg once daily as needed -Intermittent asthma: Continue albuterol HFA inhaler with spacer 2 puffs or albuterol 2.5 mg nebulized every 4 hours as needed -Intermittent urticaria: Take cetirizine 10 mg 1-2 times daily as needed. - Discussed medication dosage, usage, side effects, and goals of treatment in detail. - Follow-up in 2 months - patient will return sooner should new symptoms or problems arise. Ruth Ying MD Allergy AND Immunology VIRTUAL VISIT PROGRESS NOTE This is a virtual visit. It required patient-provider interaction for the medical decision making as documented below. I have communicated my name and active licensure. The patient's identity and physical location were verified at the time of this visit. Either the patient or their legal b2b outside sales representative has been informed of the risks and benefits of -- and alternatives to -- treatment through a remote evaluation and consents to proceed with the evaluation remotely. This is a consultation requested by Justino Mast DO for an allergy and immunology evaluation. My final recommendations will be communicated back to the requesting healthcare provider(s) by way of shared medical record or via [place] mail. Cristela Shah is a 27 year old female who presents for further evaluation and discussion of treatment options for eosinophilic esophagitis. She has a several year history of difficulty swallowing and food impaction resulting in her coughing or vomiting up food. On EGD completed on December 05, 2022, mucosal changes including longitudinal furrows and small caliber esophagus were found in the entire esophagus. An intrinsic moderate stenosis was found and was dilated. A small hiatal hernia was noted. Biopsies were obtained of the proximal and distal esophagus. Over 35 eosinophils per high-power field were noted per pathology report. Prior to having the EGD completed, she took omeprazole or H2 antagonist as needed. Subsequent to the endoscopy, her symptoms improved significantly. Protonix 40 mg twice daily was prescribed but she was not taking this regularly until 2 months ago when she began to note an increase increase in difficulty swallowing. She has noted some improvement but not complete resolution of symptoms with regular use of Protonix. Symptoms are worse after ingesting dairy and breads. She has never experienced a severe, immediate reaction to food such as urticaria, angioedema, respiratory distress, lightheadedness or LOC. On laboratory evaluation completed on 07/24/23, cows milk specific IgE was 5.9, wheat specific IgE was 2.29, peanut specific IgE was 0.43 and egg white specific IgE was 1.73. She also has symptoms of watery eyes, clear rhinorrhea, nasal congestion, sneezing. Associated symptoms include cough . These symptoms are seasonal with symptoms occuring in the spring and fall. Current triggers include exposure to cat and pollens. The patient has tried Benadryl and Claritin without relief. Previously on Flonase with relief. No prior allergy skin tests or allergy immunotherapy. On laboratory evaluation completed July 24, 2023, patient had class IV reaction to [place], class II reaction to ragweed and class I reactions to Alternaria, cat and dog. She has a history of asthma since childhood. Symptoms include cough, wheezing and shortness of breath. She has an albuterol HFA inhaler and albuterol aerosols on hand which she uses a handful of times per year. She has taken 1 course of systemic steroids for respiratory symptoms in the past year. Pres (more content not included)...[facility]05-02-2024 Nurse Note* Emilia Aggarwal LPN - 08/21/2023 12:57 PM EDT NEW. Patient states referral from Dr. Mast, had blood test last year; concerns with throat allergies when she eats food gets stuck [facility]05-02-2024 Nurse Note* Emliia Aggarwal LPN - 08/21/2023 12:57 PM EDT NEW. Patient states referral from Dr. Mast, had blood test last year; concerns with throat allergies when she eats food gets stuck [facility] of Present illness Narrative* Ruth Ying MD - 08/21/2023 12:55 PM EDT ASSESSMENT/PLAN: -Eosinophilic esophagitis: Continue Protonix 40 mg twice daily Additional treatment options for EoE including empiric elimination diets, swallowed corticosteroidsand Dupixent were discussed with the patient. Patient will start with strict elimination of cows milk and gluten from her diet. Will reevaluate in 2 to 3 months. Depending on clinical course, may consider eliminating additional foods such as soybean, eggs, peanuts/tree nuts and fish/shellfish from her diet in a stepwise fashion. Patient instructed to ensure she has adequate calcium and vitamin D intake despite her dietary restrictions. Depending on clinical course, consult with nutrition may be warranted. Continue to follow-up with gastroenterology. -Allergic rhinitis: Aggressive environmental controls Allergy skin tests will be completed to inhalant allergens at her next visit (40). Instructions provided on antihistamine avoidance prior to completion of allergy testing. Recommend that she begin regular use of fluticasone nasal spray 1- 2 sprays to each nostril once daily in August, September, November, December and January (grass and ragweed pollen seasons) Start cetirizine 10 mg once daily as needed -Intermittent asthma: Continue albuterol HFA inhaler with spacer 2 puffs or albuterol 2.5 mg nebulized every 4 hours as needed -Intermittent urticaria: Take cetirizine 10 mg 1-2 times daily as needed. - Discussed medication dosage, usage, side effects, and goals of treatment in detail. - Follow-up in 2 months - patient will return sooner should new symptoms or problems arise. Ruth Ying MD Allergy & Immunology VIRTUAL VISIT PROGRESS NOTE This is a virtual visit. It required patient-provider interaction for the medical decision making as documented below. I have communicated my name and active licensure. The patient's identity and physical location wereverified at the time of this visit. Either the patient or their legal b2b outside sales representative has been informed of the risks and benefits of -- and alternatives to -- treatment through a remote evaluation andconsents to proceed with the evaluation remotely. This is a consultation requested by Justino Mast DO for an allergy and immunology evaluation. Myfinal recommendations will be communicated back to the requesting healthcare provider(s) by way of shared medical record or via [place] mail. Cristela Shha is a 27 year old female who presents for further evaluation and discussion of treatment options for eosinophilic esophagitis. She has a several year history of difficulty swallowing and food impaction resulting in her coughing or vomiting up food. On EGD completed on December 05, 2022, mucosal changes including longitudinal furrows and small caliber esophagus were found in the entire esophagus. An intrinsic moderate stenosis was found and was dilated. A small hiatal hernia was noted.Biopsies were obtained of the proximal and distal esophagus. Over 35 eosinophils per high-power field were noted per pathology report. Prior to having the EGD completed, she took omeprazole or H2 antagonist as needed. Subsequent to the endoscopy, her symptoms improved significantly. Protonix 40 mg twice daily was prescribed but she was not taking this regularly until 2 months ago when she began to note an increaseincrease in difficulty swallowing. She has noted some improvement but not complete resolution of symptoms with regular use of Protonix. Symptoms are worse after ingesting dairy and breads. She has never experienced a severe, immediate reaction to food such as urticaria, angioedema, respiratory distress, lightheadedness or LOC. On laboratory evaluation completed on 07/24/23, cows milk specific IgE was 5.9, wheat specific IgE was 2.29, peanut specific IgE was 0.43 and egg white specific IgE was 1.73. She also has symptoms of watery eyes, clear rhinorrhea, nasal congestion, sneezing. Associated symptoms include cough . These symptoms are seasonal with symptoms occuring in the spring and fall. Current triggers include exposure to cat and pollens. The patient has tried Benadryl and Claritin without relief. Previously on Flonase with relief. No prior allergy skin tests or allergy immunotherapy. On laboratory evaluation completed July 24, 2023, patient had class IV reaction to [place], class II reaction to ragweed and class I reactions to Alternaria, cat and dog. She has a history of asthma since childhood. Symptoms include cough, wheezing and shortness of breath. She has an albuterol HFA inhaler and albuterol aerosols on hand which she uses a handful of times per year. She has taken 1 course of systemic steroids for respiratory symptoms in the past year. Presented to the emergency room and was hospitalized for asthma as a child. Denies ER visits and hospitalizations in recent years. Triggers of her asthma include upper respiratory infection and cold temperatures. COLLATERAL ALLERGY HISTORY: History of Recurrent or chronic sinusitis:No Nasal polyps:No Asthma:Yes Eczema or atopic dermatitis:No Urticaria: Patient with intermittent urticaria especially when outdoors or with exposure to chlorine. Individual lesions resolve within 24 hours without residual bruising or hyperpigmentation. Food allergy:See [place] Systemic reaction to insect sting:No Allergy to penicillin antibiotics:No REVIEW OF SYSTEMS: All other review of systems negative except for those listed above. PAST MEDICAL HISTORY Diagnosis Date PMH - PAST MEDICAL HISTORY OF allergies PMH - PAST MEDICAL HISTORY OF dermographism PMH - PAST MEDICAL HISTORY OF 02/10/08 normal color vision Unspecified asthma(493.90) Varicella without mention of complication age 1 MEDICATIONS: citalopram (CELEXA) 40 mg tablet TAKE 1 TABLET BY MOUTH DAILY FOR DEPRESSION pantoprazole DR (PROTONIX) 20 mg tablet Take two tablets by mouth daily every 12 hours. albuterol 2.5 mg /3 mL (0.083 %) INHALATION nebulizer solution Use 3 mL via nebulizer every 4 hoursas needed. albuterol 90 mcg/Actuation INHALATION Aero Inhale 2 Puffs as instructed every 4 hours as needed. ALLERGIES: Allergies As of Date: 08/21/2023 Allergen Noted Reaction ENVIROMENTAL [OTHER] 05/30/2005 Fully Assessed 08/21/2023 PAST SURGICAL HISTORY Procedure Laterality Date NONE FAMILY HISTORY: Allergic rhinitis:yes: mom, dad, and sister. Asthma: no. Eczema: no. Cystic fibrosis: no. Immunodeficiency: no. SOCIAL HISTORY: Employer And Job Title: None on file Years Of Education Completed: Not specified Marital Status: Single Social History Tobacco Use Smoking status: Never Smokeless tobacco: Never ENVIRONMENTAL HISTORY: Lives in a house Age of home: 80 years Heating: gas Woodburning fireplace in the home: no Air conditioning: Window air conditioning Basement: Damp basement Nikki: Hardwood floor Dust mite controls: Dust mite controls are not in place. Pets in the home: 2 dogs Outdoor animals: There are no outdoor animals VIDEO EXAM: (if completed, performed via video enabled technology) GENERAL: alert and appropriate, in no distress, well-hydrated, well nourished, and happy, smiling, interactive SKIN: no rash noted HEAD: normocephalic, no abnormality or lesion noted EYES: no injection and visual acuity is grossly normal EARS: external ears normal NOSE: external nose normal without rhinorrhea NECK: full ROM, no cervical LNs noted RESPIRATORY: breathing non-labored NEUROLOGIC: no obvious deficit [facility] Procedure [facility]11-14-2022 NotePap Smear Specimen AdequacyMarch 04, 2022 3:44pmComment.Satisfactory for evaluation. No endocervical component is identified.[facility]AC[facility] A#[id number] [facility] Hospital Work Phone: Comment on above:Satisfactory for evaluation. No endocervical component is identified.03-04-2022 NotePap Smear Specimen Adequacy March 04, 2022 3:44pmComment.Satisfactory for evaluation. No endocervical component is identified.[facility] A#[id number] Private Hospital Work Phone: Comment on above:Satisfactory for evaluation. No endocervical component is identified.03-04-2022 NotePap Smear Specimen Adequacy March 04, 2022 3:44pmComment.Satisfactory for evaluation. No endocervical component is identified.[facility] INTERFACED A#[id number] Private Hospital Comment on above:Satisfactory for evaluation. No endocervical component is identified.07-12-2021 Instructions* Patient Instructions* Salud Blanco APRN.[employer] TECHNICAL ADVISOR - 07/12/2021 2:58 PM EDT DO NOT take any other OTC cough or cold medication while taking the prescription Bromfed DM. May use advil aleve ibuprofen or tylenol Rest, increase water intake Motrin or Tylenol as needed for fever or pain. Salt water gargles, chloraseptic spray or lozenges as needed for sore throat. Warm beverages, honey. Nasal saline spray as needed Cool mist humidifier at night A cold normally lasts 7-10 days. If your symptoms are lasting longer, develop fever, or worsening by that time instead of improving then return to clinic or follow up with PCP for re-evaluation. * Seek medical care immediately, call 911, go to ER if you have chest pain, difficulty breathing, shortness of breath, inability to swallow. [facility] History of Present illness Narrative* Salud Blanco APRN.CNP - 07/12/2021 2:53 PM EDT Subjective The history is provided by the patient. No float phlebotomist was used. HPI Cristela Shah is a 25 year old female who presents today for CC of sinus pressure and congestion that started 4 days ago, she is also having right ear pain that started today. She has been usingmucinex without relief. She does have h/o asthma prn use of inhalers. BP 132/84 Pulse 81 Temp 36.8 C (98.2 F) (Tympanic) Resp 18 Wt 116.5 kg (256 lb 12.8 oz) LMP 08/03/2010 SpO2 99% Social History Tobacco Use Smoking status: Never Smoker Smokeless tobacco: Never Used Substance Use Topics Alcohol use: Not on file Drug use: Not on file PAST MEDICAL HISTORY Diagnosis Date PMH - PAST MEDICAL HISTORY OF allergies PMH - PAST MEDICAL HISTORY OF dermographism PMH - PAST MEDICAL HISTORY OF 02/10/08 normal color vision Unspecified asthma(493.90) Varicella without mention of complication age 1 I have confirmed and edited as necessary, the [facility] Review of Systems Constitutional: Negative for chills and fever. HENT: Positive for congestion and sinus pain. Negative for ear pain and sore throat. Respiratory: Positive for cough. Negative for sputum production, shortness of breath and wheezing. Cardiovascular: Negative for chest pain. Musculoskeletal: Negative for myalgias. Neurological: Negative for headaches. Objective Physical Exam Vitals and nursing note reviewed. HENT: Head: Normocephalic and atraumatic. Right Ear: Tympanic membrane, ear canal and external ear normal. Left Ear: Tympanic membrane and ear canal normal. Mouth/Throat: Pharynx: Uvula midline. Lymphadenopathy: Head: Right side of head: No submental, submandibular or tonsillar adenopathy. Left side of head: No submental, submandibular or tonsillar adenopathy. Cervical: No cervical adenopathy. Skin: General: Skin is warm and dry. Neurological: Mental Status: She is alert. Psychiatric: Mood and Affect: Affect normal. ASSESSMENT/PLAN: 1. URI, acute - ICD9: 465.9, ICD10: J06.9 (primary diagnosis) - Discussed viral etiology and rationale for treatment. - Symptomatic treatment with prn analgesia - Supportive care with fluids and rest - Follow up in 3-5 days if symptoms persist or sooner if worsening of symptoms 2. Pressure sensation in right ear - ICD9: 388.8, ICD10: H93.8X1 Fluid in middle ear 3. Sinus pressure - ICD9: 478.19, ICD10: J34.89 - bromfred Flonase/hasal saline If no improvement in 5-7 days return for re-evaluation. Diagnosis and treatment plan were discussed and questions were answered to the patient's satisfaction. Pt acknowledged understanding of concepts and follow up plan. Specific signs and symptoms that would indicate the need for higher level of care were discussed indetail warranting prompt ER evaluation. Salud Blanco APRN.ENA documented in [facility]Ad[facility] + Plan note Future Appointments Appointment Date:02/27/2022 02:15:00 PM Scheduled Provider:TYESHA YOO MD Location:[facility] Appointment Type:[facility] Future Scheduled Tests Laboratory* Type and Screen (AO) 02/13/22 [facility] Evaluation note* Diagnosis URI, acute- Primary Acute upper respiratory infections of unspecified site Pressure sensation in right ear Sinus pressure Other diseases of nasal cavity and sinuses documented [facility]* Diagnosis Onset Date Resolution Status Encounter for pre-employment health screening examination acute [facility] Work Phone: Evaluation noteNo assessment information available [facility] Work Phone: Evaluation note* Diagnosis Onset Date Resolution Status Asthma acute Encounter for pre-employment health screening examination acute Fibroid uterus acute Infertility acute Obesity affecting acute acute Seasonal allergies acute Spotting acute Supervision of high risk , antepartum acute [facility] Work Phone: evaluation note* Diagnosis Onset Date Resolution Status Asthma acute Encounter for pre-employment health screening examination acute Fibroid uterus acute Infertility acute Obesity affecting acute acute Seasonal allergies acute Spotting acute Supervision of high risk , antepartum acute Asthma acute Obesity affecting acute acute Seasonal allergies acute Supervision of high risk , antepartum acute [facility] Work Phone: evaluation note* Diagnosis Onset Date Resolution Status Asthma acute Fibroid uterus acute Infertility acute Obesity affecting acute acute Seasonal allergies acute Spotting acute Supervision of high risk , antepartum acute Asthma acute Obesity affecting acute acute Seasonal allergies acute Supervision of high risk , antepartum acute Obesity affecting acute acute Supervision of high risk , antepartum acute [facility] Work Phone: evaluation note* Diagnosis Onset Date Resolution Status Asthma acute Obesity affecting acute acute Seasonal allergies acute Supervision of high risk , antepartum acute Obesity affecting acute acute Supervision of high risk , antepartum acute Asthma acute Fibroid uterus acute Infertility acute Obesity affecting acute acute Seasonal allergies acute Spotting acute Supervision of high risk , antepartum acute Asthma acute Difficulty swallowing acute Fibroid uterus acute Infertility acute Obesity affecting acute acute Seasonal allergies acute Spotting acute Supervision of high risk , antepartum acute Anemia in preg-unspec acute Infertility acute Obesity affecting acute acute Supervision of high risk , antepartum acute [facility] Work Phone: evaluation note* Diagnosis Onset Date Resolution Status Asthma acute Obesity affecting acute acute Seasonal allergies acute Supervision of high risk , antepartum acute Obesity affecting acute acute Supervision of high risk , antepartum acute Asthma acute Fibroid uterus acute Infertility acute Obesity affecting acute acute Seasonal allergies acute Spotting acute Supervision of high risk , antepartum acute Asthma acute Difficulty swallowing acute Fibroid uterus acute Infertility acute Obesity affecting acute acute Seasonal allergies acute Spotting acute Supervision of high risk , antepartum acute Anemia in preg-unspec acute Infertility acute Obesity affecting acute acute Supervision of high risk , antepartum acute Anemia in preg-unspec acute Asthma acute Difficulty swallowing acute Fibroid uterus acute Infertility acute Obesity affecting acute acute Seasonal allergies acute Spotting acute Supervision of high risk , antepartum acute Transient hypertension of resolved Gestational hypertension acu te [facility] Work Phone: Evaluation note* Diagnosis Onset Date Resolution Status Obesity affecting acute acute Supervision of high risk , antepartum acute Asthma acute Obesity affecting acute acute Supervision of high risk , antepartum acute Fibroid uterus resolved Infertility resolved Seasonal allergies resolved Spotting resolved Asthma acute Difficulty swallowing acute Obesity affecting acute acute Supervision of high risk , antepartum acute Fibroid uterus resolved Infertility resolved Seasonal allergies resolved Spotting resolved Anemia in preg-unspec acute Obesity affecting acute acute Supervision of high risk , antepartum acute Infertility resolved Anemia in preg-unspec acute Asthma acute Difficulty swallowing acute Obesity affecting acute acute Supervision of high risk , antepartum acute Fibroid uterus resolved Infertility resolved Seasonal allergies resolved Spotting resolved Transient hypertension of resolved Gestational hypertension acu te Anemia in preg-unspec acute Asthma acute Difficulty swallowing acute Gestational hypertension acu te Obesity affecting acute acute Supervision of high risk , antepartum acute Fibroid uterus resolved Infertility resolved Seasonal allergies resolved Spotting resolved Anemia in preg-unspec acute Asthma acute Difficulty swallowing acute Gestational hypertension acu te Obesity affecting acute acute Supervision of high risk , antepartum acute Fibroid uterus resolved Infertility resolved Seasonal allergies resolved Spotting resolved Anemia in preg-unspec acute Asthma acute Difficulty swallowing acute Gestational hypertension acu te Obesity affecting acute acute Supervision of high risk , antepartum acute Fibroid uterus resolved Infertility resolved Seasonal allergies resolved Spotting resolved Anemia in preg-unspec acute Asthma acute 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 Difficulty swallowing acute Gestational hypertension acu te Obesity affecting acute acute Supervision of high risk , antepartum acute Anemia in preg-unspec acute Asthma acute 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 Depression with anxiety acut e Difficulty swallowing acute Gestational hypertension acu te Obesity affecting acute acute Supervision of high risk , antepartum acute [facility] Work Phone: Evaluation note* Diagnosis Onset Date Resolution Status Obesity affecting acute acute Supervision of high risk , antepartum acute Asthma acute Obesity affecting acute acute Supervision of high risk , antepartum acute Fibroid uterus resolved Infertility resolved Seasonal allergies resolved Spotting resolved Asthma acute Difficulty swallowing acute Obesity affecting acute acute Supervision of high risk , antepartum acute Fibroid uterus resolved Infertility resolved Seasonal allergies resolved Spotting resolved Anemia in preg-unspec acute Obesity affecting acute acute Supervision of high risk , antepartum acute Infertility resolved Anemia in preg-unspec acute Asthma acute Difficulty swallowing acute Obesity affecting acute acute Supervision of high risk , antepartum acute Fibroid uterus resolved Infertility resolved Seasonal allergies resolved Spotting resolved Transient hypertension of resolved Gestational hypertension acu te Anemia in preg-unspec acute Asthma acute Difficulty swallowing acute Gestational hypertension acu te Obesity affecting acute acute Supervision of high risk , antepartum acute Fibroid uterus resolved Infertility resolved Seasonal allergies resolved Spotting resolved Anemia in preg-unspec acute Asthma acute Difficulty swallowing acute Gestational hypertension acu te Obesity affecting acute acute Supervision of high risk , antepartum acute Fibroid uterus resolved Infertility resolved Seasonal allergies resolved Spotting resolved Anemia in preg-unspec acute Asthma acute Difficulty swallowing acute Gestational hypertension acu te Obesity affecting acute acute Supervision of high risk , antepartum acute Fibroid uterus resolved Infertility resolved Seasonal allergies resolved Spotting resolved Anemia in preg-unspec acute Asthma acute 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 Difficulty swallowing acute Gestational hypertension acu te Obesity affecting acute acute Supervision of high risk , antepartum acute Anemia in preg-unspec acute Asthma acute 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 Depression with anxiety acut e Difficulty swallowing acute Gestational hypertension acu te Obesity affecting acute acute Supervision of high risk , antepartum acute Anemia in preg-unspec acute Asthma acute 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 Depression with anxiety acut e Difficulty swallowing acute Gestational hypertension acu te Obesity affecting acute acute Supervision of high risk , antepartum acute [facility] Work Phone: Evaluation note* Diagnosis Onset Date Resolution Status Obesity affecting acute acute Supervision of high risk , antepartum acute Asthma acute Obesity affecting acute acute Supervision of high risk , antepartum acute Fibroid uterus resolved Infertility resolved Seasonal allergies resolved Spotting resolved Asthma acute Difficulty swallowing acute Obesity affecting acute acute Supervision of high risk , antepartum acute Fibroid uterus resolved Infertility resolved Seasonal allergies resolved Spotting resolved Anemia in preg-unspec acute Obesity affecting acute acute Supervision of high risk , antepartum acute Infertility resolved Anemia in preg-unspec acute Asthma acute Difficulty swallowing acute Obesity affecting acute acute Supervision of high risk , antepartum acute Fibroid uterus resolved Infertility resolved Seasonal allergies resolved Spotting resolved Transient hypertension of resolved Gestational hypertension acu te Anemia in preg-unspec acute Asthma acute Difficulty swallowing acute Gestational hypertension acu te Obesity affecting acute acute Supervision of high risk , antepartum acute Fibroid uterus resolved Infertility resolved Seasonal allergies resolved Spotting resolved Anemia in preg-unspec acute Asthma acute Difficulty swallowing acute Gestational hypertension acu te Obesity affecting acute acute Supervision of high risk , antepartum acute Fibroid uterus resolved Infertility resolved Seasonal allergies resolved Spotting resolved Anemia in preg-unspec acute Asthma acute Difficulty swallowing acute Gestational hypertension acu te Obesity affecting acute acute Supervision of high risk , antepartum acute Fibroid uterus resolved Infertility resolved Seasonal allergies resolved Spotting resolved Anemia in preg-unspec acute Asthma acute 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 Difficulty swallowing acute Gestational hypertension acu te Obesity affecting acute acute Supervision of high risk , antepartum acute Anemia in preg-unspec acute Asthma acute 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 Depression with anxiety acut e Difficulty swallowing acute Gestational hypertension acu te Obesity affecting acute acute Supervision of high risk , antepartum acute Anemia in preg-unspec acute Asthma acute 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 Depression with anxiety acut e Difficulty swallowing acute Gestational hypertension acu te Obesity affecting acute acute Supervision of high risk , antepartum acute Anemia in preg-unspec acute Asthma acute 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 Depression with anxiety acut e Difficulty swallowing acute Gestational hypertension acu te Obesity affecting acute acute Supervision of high risk , antepartum acute [place] [facility] Work Phone: Evaluation note* Diagnosis Onset Date Resolution Status Obesity affecting acute acute Supervision of high risk , antepartum acute Asthma acute Obesity affecting acute acute Supervision of high risk , antepartum acute Fibroid uterus resolved Infertility resolved Seasonal allergies resolved Spotting resolved Asthma acute Difficulty swallowing acute Obesity affecting acute acute Supervision of high risk , antepartum acute Fibroid uterus resolved Infertility resolved Seasonal allergies resolved Spotting resolved Anemia in preg-unspec acute Obesity affecting acute acute Supervision of high risk , antepartum acute Infertility resolved Anemia in preg-unspec acute Asthma acute Difficulty swallowing acute Obesity affecting acute acute Supervision of high risk , antepartum acute Fibroid uterus resolved Infertility resolved Seasonal allergies resolved Spotting resolved Transient hypertension of resolved Gestational hypertension acu te Anemia in preg-unspec acute Asthma acute Difficulty swallowing acute Gestational hypertension acu te Obesity affecting acute acute Supervision of high risk , antepartum acute Fibroid uterus resolved Infertility resolved Seasonal allergies resolved Spotting resolved Anemia in preg-unspec acute Asthma acute Difficulty swallowing acute Gestational hypertension acu te Obesity affecting acute acute Supervision of high risk , antepartum acute Fibroid uterus resolved Infertility resolved Seasonal allergies resolved Spotting resolved Anemia in preg-unspec acute Asthma acute Difficulty swallowing acute Gestational hypertension acu te Obesity affecting acute acute Supervision of high risk , antepartum acute Fibroid uterus resolved Infertility resolved Seasonal allergies resolved Spotting resolved Anemia in preg-unspec acute Asthma acute 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 Difficulty swallowing acute Gestational hypertension acu te Obesity affecting acute acute Supervision of high risk , antepartum acute Anemia in preg-unspec acute Asthma acute 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 Depression with anxiety acut e Difficulty swallowing acute Gestational hypertension acu te Obesity affecting acute acute Supervision of high risk , antepartum acute Anemia in preg-unspec acute Asthma acute 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 Depression with anxiety acut e Difficulty swallowing acute Gestational hypertension acu te Obesity affecting acute acute Supervision of high risk , antepartum acute Anemia in preg-unspec acute Asthma acute 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 Depression with anxiety acut e Difficulty swallowing acute Gestational hypertension acu te Obesity affecting acute acute Supervision of high risk , antepartum acute Anemia in preg-unspec acute Asthma acute Breech presentation acute 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 Depression with anxiety acut e Difficulty swallowing acute Gestational hypertension acu te Obesity affecting acute acute Supervision of high risk , antepartum acute [place] [facility] Work Phone: Evaluation note* Diagnosis Onset Date Resolution Status Asthma acute Obesity affecting acute acute Supervision of high risk , antepartum acute Fibroid uterus resolved Infertility resolved Seasonal allergies resolved Spotting resolved Asthma acute Difficulty swallowing acute Obesity affecting acute acute Supervision of high risk , antepartum acute Fibroid uterus resolved Infertility resolved Seasonal allergies resolved Spotting resolved Anemia in preg-unspec acute Obesity affecting acute acute Supervision of high risk , antepartum acute Infertility resolved Anemia in preg-unspec acute Asthma acute Difficulty swallowing acute Obesity affecting acute acute Supervision of high risk , antepartum acute Fibroid uterus resolved Infertility resolved Seasonal allergies resolved Spotting resolved Transient hypertension of resolved Gestational hypertension acu te Anemia in preg-unspec acute Asthma acute Difficulty swallowing acute Gestational hypertension acu te Obesity affecting acute acute Supervision of high risk , antepartum acute Fibroid uterus resolved Infertility resolved Seasonal allergies resolved Spotting resolved Anemia in preg-unspec acute Asthma acute Difficulty swallowing acute Gestational hypertension acu te Obesity affecting acute acute Supervision of high risk , antepartum acute Fibroid uterus resolved Infertility resolved Seasonal allergies resolved Spotting resolved Anemia in preg-unspec acute Asthma acute Difficulty swallowing acute Gestational hypertension acu te Obesity affecting acute acute Supervision of high risk , antepartum acute Fibroid uterus resolved Infertility resolved Seasonal allergies resolved Spotting resolved Anemia in preg-unspec acute Asthma acute 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 Difficulty swallowing acute Gestational hypertension acu te Obesity affecting acute acute Supervision of high risk , antepartum acute Anemia in preg-unspec acute Asthma acute 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 Depression with anxiety acut e Difficulty swallowing acute Gestational hypertension acu te Obesity affecting acute acute Supervision of high risk , antepartum acute Anemia in preg-unspec acute Asthma acute 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 Depression with anxiety acut e Difficulty swallowing acute Gestational hypertension acu te Obesity affecting acute acute Supervision of high risk , antepartum acute Anemia in preg-unspec acute Asthma acute 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 Depression with anxiety acut e Difficulty swallowing acute Gestational hypertension acu te Obesity affecting acute acute Supervision of high risk , antepartum acute Anemia in preg-unspec acute Asthma acute Breech presentation acute 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 Depression with anxiety acut e Difficulty swallowing acute Gestational hypertension acu te Obesity affecting acute acute Supervision of high risk , antepartum acute Anemia in preg-unspec acute Asthma acute Breech presentation acute 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 Depression with anxiety acut e Difficulty swallowing acute Gestational hypertension acu te Obesity affecting acute acute Supervision of high risk , antepartum acute Anemia in preg-unspec acute Asthma acute Breech presentation acute 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 Depression with anxiety acut e Difficulty swallowing acute Gestational hypertension acu te Obesity affecting acute acute Supervision of high risk , antepartum acute [facility] Phone: Evaluation note* Diagnosis Onset Date Resolution Status Asthma acute Obesity affecting acute acute Supervision of high risk , antepartum acute Fibroid uterus resolved Infertility resolved Seasonal allergies resolved Spotting resolved Asthma acute Obesity affecting acute acute Supervision of high risk , antepartum acute Difficulty swallowing chroni c Fibroid uterus resolved Infertility resolved Seasonal allergies resolved Spotting resolved Anemia in preg-unspec acute Obesity affecting acute acute Supervision of high risk , antepartum acute Infertility resolved Anemia in preg-unspec acute Asthma acute Obesity affecting acute acute Supervision of high risk , antepartum acute Difficulty swallowing chroni c Fibroid uterus resolved Infertility resolved Seasonal allergies resolved Spotting resolved Transient hypertension of resolved Gestational hypertension acu te Anemia in preg-unspec acute Asthma acute Gestational hypertension acu te Obesity affecting acute acute Supervision of high risk , antepartum acute Difficulty swallowing chroni c Fibroid uterus resolved Infertility resolved Seasonal allergies resolved Spotting resolved Anemia in preg-unspec acute Asthma acute Gestational hypertension acu te Obesity affecting acute acute Supervision of high risk , antepartum acute Difficulty swallowing chroni c Fibroid uterus resolved Infertility resolved Seasonal allergies resolved Spotting resolved Anemia in preg-unspec acute Asthma acute Gestational hypertension acu te Obesity affecting acute acute Supervision of high risk , antepartum acute Difficulty swallowing chroni c Fibroid uterus resolved Infertility resolved Seasonal allergies resolved Spotting resolved Anemia in preg-unspec acute Asthma acute 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 Gestational hypertension acu te Obesity affecting acute acute Supervision of high risk , antepartum acute Difficulty swallowing chroni c Anemia in preg-unspec acute Asthma acute 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 Depression with anxiety acut e Gestational hypertension acu te Obesity affecting acute acute Supervision of high risk , antepartum acute Difficulty swallowing chroni c Anemia in preg-unspec acute Asthma acute 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 Depression with anxiety acut e Gestational hypertension acu te Obesity affecting acute acute Supervision of high risk , antepartum acute Difficulty swallowing chroni c Anemia in preg-unspec acute Asthma acute 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 Depression with anxiety acut e Gestational hypertension acu te Obesity affecting acute acute Supervision of high risk , antepartum acute Difficulty swallowing chroni c Anemia in preg-unspec acute Asthma acute Breech presentation acute 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 Depression with anxiety acut e Gestational hypertension acu te Obesity affecting acute acute Supervision of high risk , antepartum acute Difficulty swallowing chroni c Anemia in preg-unspec acute Asthma acute Breech presentation acute 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 Depression with anxiety acut e Gestational hypertension acu te Obesity affecting acute acute Supervision of high risk , antepartum acute Difficulty swallowing chroni c Anemia in preg-unspec acute Asthma acute Breech presentation acute 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 Depression with anxiety acut e Gestational hypertension acu te Obesity affecting acute acute Supervision of high risk , antepartum acute Difficulty swallowing chroni c Anemia in preg-unspec acute Asthma acute 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 Depression with anxiety acut e Gestational hypertension acu te Obesity affecting acute acute Supervision of high risk , antepartum acute Difficulty swallowing chroni c Anemia in preg-unspec acute Asthma acute Breech presentation acute 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 Depression with anxiety acut e Gestational hypertension acu te Obesity affecting acute acute Supervision of high risk , antepartum acute Difficulty swallowing chroni c Anemia in preg-unspec acute Asthma acute Breech presentation acute 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 Depression with anxiety acut e Gestational hypertension acu te Obesity affecting acute acute Supervision of high risk , antepartum acute Difficulty swallowing chroni c Anemia in preg-unspec acute Asthma acute Breech presentation acute 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 Depression with anxiety acut e Gestational hypertension acu te Obesity affecting acute acute Severely increased blood pre ssure and swelling during acute Status post section acute Supervision of high risk , antepartum acute Difficulty swallowing chroni c Depression with anxiety acut e Gestational hypertension acu te Status post section acute Postop check noneactive Difficulty swallowing chroni c [facility] Work Phone: Evaluation note* Diagnosis Onset Date Resolution Status Anemia in preg-unspec acute Asthma acute 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 Depression with anxiety acut e Gestational hypertension acu te Obesity affecting acute acute Supervision of high risk , antepartum acute Difficulty swallowing chroni c Anemia in preg-unspec acute Asthma acute 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 Depression with anxiety acut e Gestational hypertension acu te Obesity affecting acute acute Supervision of high risk , antepartum acute Difficulty swallowing chroni c Anemia in preg-unspec acute Asthma acute 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 Depression with anxiety acut e Gestational hypertension acu te Obesity affecting acute acute Supervision of high risk , antepartum acute Difficulty swallowing chroni c Anemia in preg-unspec acute Asthma acute Breech presentation acute 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 Depression with anxiety acut e Gestational hypertension acu te Obesity affecting acute acute Supervision of high risk , antepartum acute Difficulty swallowing chroni c Anemia in preg-unspec acute Asthma acute Breech presentation acute 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 Depression with anxiety acut e Gestational hypertension acu te Obesity affecting acute acute Supervision of high risk , antepartum acute Difficulty swallowing chroni c Anemia in preg-unspec acute Asthma acute Breech presentation acute 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 Depression with anxiety acut e Gestational hypertension acu te Obesity affecting acute acute Supervision of high risk , antepartum acute Difficulty swallowing chroni c Anemia in preg-unspec acute Asthma acute 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 Depression with anxiety acut e Gestational hypertension acu te Obesity affecting acute acute Supervision of high risk , antepartum acute Difficulty swallowing chroni c Anemia in preg-unspec acute Asthma acute Breech presentation acute 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 Depression with anxiety acut e Gestational hypertension acu te Obesity affecting acute acute Supervision of high risk , antepartum acute Difficulty swallowing chroni c Anemia in preg-unspec acute Asthma acute Breech presentation acute 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 Depression with anxiety acut e Gestational hypertension acu te Obesity affecting acute acute Supervision of high risk , antepartum acute Difficulty swallowing chroni c Anemia in preg-unspec acute Asthma acute Breech presentation acute 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 Depression with anxiety acut e Gestational hypertension acu te Obesity affecting acute acute Severely increased blood pre ssure and swelling during acute Status post section acute Supervision of high risk , antepartum acute Difficulty swallowing chroni c Depression with anxiety acut e Gestational hypertension acu te Status post section acute Postop check noneactive Difficulty swallowing chroni c Gestational hypertension acu te care and examination acute Status post section acute [facility] Work Phone: Evaluation note* Diagnosis Eosinophilic esophagitis- Primary Seasonal allergic rhinitis due to pollen Mild intermittent asthma without complication Unspecified asthma Urticaria Urticaria, unspecified documented in this encounter [facility] Author Justino Mast [facility] December 05, 2022 11:36am Note Date/Time December 05, 2022 11 :36am [facility] Medical Records Department [address] [place] [address] History & Physical Exam 12/05/22 1136 MR#: [id number] Acct: [id number] Name: CRISTELA SHAH Rep #:[id number] : 1995 27 From: Justino Mast DO PCP: Dr. Rosanna Scales, DO Status[place] [facility] [place]: [place] AC10-1 History and Physical Date of Admission: 12/05/22 HPI HPI Details: CRISTELA SHAH, is a 26 F who presents to the office today for Prior workup: ? US RUQ 2..21 without acute/chronic finding. ? HIDA 2.. EF 95% without reflux into common hepatic duct. Land [employer] Super[employer] OV 3..23 noting dysphagia during third-trimester of . Sheunderwent 09.04.22 r/t breech presentation. *BGI established 09.12.22 with dysphagia during PO intake with emesis; onset several years prior with worsening frequency in the last year. Denies history ofEGD or studies performed. ROS Const Constitutional: No anorexia, fatigue, fever(s), weight change or sleep problems Eyes Eyes: No change in vision ENT ENT: No abnormal hearing, difficulty swallowing, mouth lesions, tongue swelling or throat swelling Resp Respiratory: No cough or shortness of breath Cardio Cardiology: No chest pain at rest, chest pain with exertion, shortness of breathor dyspnea on exertion Gastro GI: No difficulty swallowing Genitourinary-Female: No difficulty urinating or burning urination Musc Musculoskeletal: No joint pain, joint swelling, muscle weakness or decreased muscle mass Skin Skin: No hair loss in leg, yellowing of the eye, itchy eyes, rash, skin ulcer orskin swelling Neuro Neurology: No abnormal hearing, abnormal movements, confusion, unsteady gait/balance or memory loss Psych Psychiatric: No anxiety, No confusion and No memory loss Endo Endocrine: No fatigue or weight change Aller/Imm Allergy/Immunologic: No itchy eyes, throat swelling or tongue swelling Patric/Lymp Hematologic/Lymphatic: No easy bleeding, easy bruising or enlarged lymph nodes Exam Const General: cooperative and comfortable Nutritional Appearance: average body habitus and well nourished HENMT Head: normal to inspection Ears: hearing grossly normal bilaterally Nose: external nose normal Face and sinus: normal facial exam Mouth: oral mucosae normal Throat: posterior oropharynx normal Eyes General: appearance normal, both eyes and all related structures Neck Neck: normal visual inspection Chest Chest palpation & inspection: normal inspection of the chest and normal palpation of entire chest wall Resp Effort & Inspection: normal respiratory effort Auscultation: Bilateral: Clear to Auscultation Cardio Palpation: normal PMI Rate: regular rate Rhythm: regular rhythm GI Inspection: normal to inspection Auscultation: normal bowel sounds Percussion: normal to percussion Palpation: no hepatosplenomegaly Skin General: no rashes or lesions noted Neuro General: patient alert Extrem General: normal to inspection Psych Affect: normal affect Quality Reporting Tobacco Screening ([facility] 138) Smoking Status: Never smoker Assessment and Plan Assessment and Plan (1) Difficulty swallowing: Status: Chronic Plan: The differential diagnosis for esophageal dysphagia does include eosinophilic esophagitis, esophageal dysmotility, erosive esophagitis, esophageal stricture. She will undergo an upper endoscopy to evaluate upper GI tract. She was explained alternatives, risk, benefits including outstanding bleeding, infection, sepsis, perforation, need for emergent and . She will have an ASA of 1. We will also check food allergy testing along with an ROD and ANCA antibodies. Orders: Orders Allergen, Mini-Rast Today R13.10 - Dysphagia, unspecified Allergen, Rast Food Profile Today R13.10 - Dysphagia, unspecified ROD Comprehensive Panel Today R13.10 - Dysphagia, unspecified ANCA Today R13.10 - Dysphagia, unspecified Celiac Disease Profile Today R13.10 - Dysphagia, unspecified Immunoglobulin A Today R13.10 - Dysphagia, unspecified Immunoglobulin E Today R13.10 - Dysphagia, unspecified Immunoglobulin G Today R13.10 - Dysphagia, unspecified Immunoglobulin M Today R13.10 - Dysphagia, unspecified I have examined the patient and the H&P has been reviewed. There are no clinicalchanges since date of exam. 12/05/22 1136 <Electronically signed by Justino Mast DO> Cosigner Signature (if applicable): CC: Dr. Rosanna Scales DO; Justino Mast DO~ Signed [facility] Work Phone: Hospital course Narrative No data available for this section [facility] Discharge instructions No data available for this section [facility] Discharge instructions Additional Instructions Increase Nifedipine 60mg daily Check BP twice daily: report if greater than 150/90 or pre-e sym. Pamphlet given. Call office for appt [facility]: Instructions* Name Dates Details Patient Instructions Indication:BMI 40.0-44.9, adult Start:15-Jan-2021 Instruction Type:Provider Instructions for Treatment Patient Instructions Indication:Breast mass Start:12-Jan-2021 Instruction Type:Provider Instructions for Treatment How to Access Health Informa tion Online using Patient Portal and [employer] Apps Indication:Breast mass Start:12-Jan-2021 Instruction Type:Patient Education How to Access Health Informa tion Online using Patient Portal and [employer] Apps Indication:Right upper quadrant pain Start:02-Jun-2020 Instruction Type:Patient Education Patient Instructions Indication:Right upper quadrant pain Start:02-Jun-2020 Instruction Type:Provider Instructions for Treatment Patient Instructions Indication:Anxiety and depression Start:18-Jul-2019 Instruction Type:Provider Instructions for Treatment How to access health informa tion online Indication:Myalgia Start:09-Jun-2019 Instruction Type:Patient Education How to access health informa tion online - Detail Indication:Myalgia Start:09-Jun-2019 Instruction Type:Patient Education Patient Instructions Indication:Myalgia Start:09-Jun-2019 Instruction Type:Provider Instructions for Treatment How to access health informa tion online Indication:Nonsmoker Start:30-Sep-2018 Instruction Type:Patient Education How to access health informa tion online - Detail Indication:Nonsmoker Start:30-Sep-2018 Instruction Type:Patient Education Patient Instructions Indication:Nonsmoker Start:30-Sep-2018 Instruction Type:Provider Instructions for Treatment How to access health informa tion online Indication:Sore throat Start:03-Aug-2018 Instruction Type:Patient Education How to access health informa tion online - Detail Indication:Sore throat Start:03-Aug-2018 Instruction Type:Patient Education Patient Instructions Indication:Sore throat Start:03-Aug-2018 Instruction Type:Provider Instructions for Treatment How to access health informa tion online Indication:BMI 38.0-38.9,adult Start:20-May-2018 Instruction Type:Patient Education How to access health informa tion online - Detail Indication:BMI 38.0-38.9,adult Start:20-May-2018 Instruction Type:Patient Education Patient Instructions Indication:BMI 38.0-38.9,adult Start:20-May-2018 Instruction Type:Provider Instructions for Treatment How to access health informa tion online Indication:Upper respiratory infection, acute Start:09-Mar-2018 Instruction Type:Patient Education How to access health informa tion online - Detail Indication:Upper respiratory infection, acute Start:09-Mar-2018 Instruction Type:Patient Education Patient Instructions Indication:Upper respiratory infection, acute Start:09-Mar-2018 Instruction Type:Provider Instructions for Treatment How to access health informa tion online Indication:Constipation Start:10-Nov-2017 Instruction Type:Patient Education How to access health informa tion online - Detail Indication:Constipation Start:10-Nov-2017 Instruction Type:Patient Education Patient Instructions Indication:Constipation Start:10-Nov-2017 Instruction Type:Provider Instructions for Treatment How to access health informa tion online Indication:BMI 36.0-36.9,adult Start:16-Jun-2017 Instruction Type:Patient Education How to access health informa tion online - Detail Indication:BMI 36.0-36.9,adult Start:16-Jun-2017 Instruction Type:Patient Education Patient Instructions Indication:BMI 36.0-36.9,adult Start:16-Jun-2017 Instruction Type:Provider Instructions for Treatment How to access health informa tion online Indication:Fever Start:04-Jun-2017 Instruction Type:Patient Education How to access health informa tion online - Detail Indication:Fever Start:04-Jun-2017 Instruction Type:Patient Education Patient Instructions Indication:Fever Start:04-Jun-2017 Instruction Type:Provider Instructions for Treatment How to access health informa tion online Indication:Asthma in adult, mild intermittent, with acute exacerbation Start:06-May-2017 Instruction Type:Patient Education How to access health informa tion online - Detail Indication:Asthma in adult, mild intermittent, with acute exacerbation Start:06-May-2017 Instruction Type:Patient Education Patient Instructions Indication:Asthma in adult, mild intermittent, with acute exacerbation Start:06-May-2017 Instruction Type:Provider Instructions for Treatment How to access health informa tion online Indication:BMI 36.0-36.9,adult Start:26-Mar-2017 Instruction Type:Patient Education How to access health informa tion online - Detail Indication:BMI 36.0-36.9,adult Start:26-Mar-2017 Instruction Type:Patient Education Patient Instructions Indication:BMI 36.0-36.9,adult Start:26-Mar-2017 Instruction Type:Provider Instructions for Treatment How to access health informa tion online Indication:BMI 36.0-36.9,adult Start:19-Mar-2017 Instruction Type:Patient Education How to access health informa tion online - Detail Indication:BMI 36.0-36.9,adult Start:19-Mar-2017 Instruction Type:Patient Education Patient Instructions Indication:BMI 36.0-36.9,adult Start:19-Mar-2017 Instruction Type:Provider Instructions for Treatment How to access health informa tion online Indication:Abnormal weight gain Start:19-Feb-2017 Instruction Type:Patient Education How to access health informa tion online - Detail Indication:Abnormal weight gain Start:19-Feb-2017 Instruction Type:Patient Education Patient Instructions Indication:Abnormal weight gain Start:19-Feb-2017 Instruction Type:Provider Instructions for Treatment How to access health informa tion online Indication:Abnormal weight gain Start:05-Feb-2017 Instruction Type:Patient Education How to access health informa tion online - Detail Indication:Abnormal weight gain Start:05-Feb-2017 Instruction Type:Patient Education Patient Instructions Indication:Abnormal weight gain Start:05-Feb-2017 Instruction Type:Provider Instructions for Treatment How to access health informa tion online Indication:Abnormal weight gain Start:22-Jan-2017 Instruction Type:Patient Education How to access health informa tion online - Detail Indication:Abnormal weight gain Start:22-Jan-2017 Instruction Type:Patient Education Patient Instructions Indication:Abnormal weight gain Start:22-Jan-2017 Instruction Type:Provider Instructions for Treatment How to access health informa tion online Indication:Nonsmoker Start:03-Jan-2017 Instruction Type:Patient Education How to access health informa tion online - Detail Indication:Nonsmoker Start:03-Jan-2017 Instruction Type:Patient Education Patient Instructions Indication:Nonsmoker Start:03-Jan-2017 Instruction Type:Provider Instructions for Treatment How to access health informa tion online Indication:Pelvic pain in female Start:03-Dec-2016 Instruction Type:Patient Education How to access health informa tion online - Detail Indication:Pelvic pain in female Start:03-Dec-2016 Instruction Type:Patient Education Patient Instructions Indication:Pelvic pain in female Start:03-Dec-2016 Instruction Type:Provider Instructions for Treatment How to access health informa tion online Indication:BMI 36.0-36.9,adult Start:18-Nov-2016 Instruction Type:Patient Education How to access health informa tion online - Detail Indication:BMI 36.0-36.9,adult Start:18-Nov-2016 Instruction Type:Patient Education Patient Instructions Indication:BMI 36.0-36.9,adult Start:18-Nov-2016 Instruction Type:Provider Instructions for Treatment How to access health informa tion online Indication:Asthma in adult, mild intermittent, with acute exacerbation Start:12-Apr-2016 Instruction Type:Patient Education How to access health informa tion online - Detail Indication:Asthma in adult, mild intermittent, with acute exacerbation Start:12-Apr-2016 Instruction Type:Patient Education Patient Instructions Indication:Asthma in adult, mild intermittent, with acute exacerbation Start:12-Apr-2016 Instruction Type:Provider Instructions for Treatment How to access health informa tion online Indication:Dysuria Start:27-Feb-2016 Instruction Type:Patient Education How to access health informa tion online - Detail Indication:Dysuria Start:27-Feb-2016 Instruction Type:Patient Education Patient Instructions Indication:Dysuria Start:27-Feb-2016 Instruction Type:Provider Instructions for Treatment How to access health informa tion online Indication:Well woman exam (Renamed from Encounter for well woman exam) Start:05-Feb-2016 Instruction Type:Patient Education How to access health informa tion online - Detail Indication:Well woman exam (Renamed from Encounter for well woman exam) Start:05-Feb-2016 Instruction Type:Patient Education Patient Instructions Indication:Well woman exam (Renamed from Encounter for well woman exam) Start:05-Feb-2016 Instruction Type:Provider Instructions for Treatment Patient Instructions Indication:Dysthymic disorder Start:10-May-2014 Instruction Type:Provider Instructions for Treatment Patient Instructions Indication:Physical exam, routine Start:03-May-2013 Instruction Type:Provider Instructions for Treatment Patient Instructions Indication:Dysmenorrhea Start:22-Jan-2013 Instruction Type:Provider Instructions for Treatment Patient Instructions Indication:SHORTNESS OF BREATH Start:27-Apr-2012 Instruction Type:Provider Instructions for Treatment Patient Instructions Indication:Epigastric pain Start:21-Feb-2012 Instruction Type:Provider Instructions for Treatment Patient Instructions Indication:Epigastric pain Start:17-Jan-2012 Instruction Type:Provider Instructions for Treatment [facility]; [facility] Work Phone: Instructions* Name Dates Details Patient Instructions Indication:BMI 40.0-44.9, adult Start:15-Jan-2021 Instruction Type:Provider Instructions for Treatment Patient Instructions Indication:Breast mass Start:12-Jan-2021 Instruction Type:Provider Instructions for Treatment How to Access Health Informa tion Online using Patient Portal and [employer] Apps Indication:Breast mass Start:12-Jan-2021 Instruction Type:Patient Education How to Access Health Informa tion Online using Patient Portal and [employer] Apps Indication:Right upper quadrant pain Start:02-Jun-2020 Instruction Type:Patient Education Patient Instructions Indication:Right upper quadrant pain Start:02-Jun-2020 Instruction Type:Provider Instructions for Treatment Patient Instructions Indication:Anxiety and depression Start:18-Jul-2019 Instruction Type:Provider Instructions for Treatment How to access health informa tion online Indication:Myalgia Start:09-Jun-2019 Instruction Type:Patient Education How to access health informa tion online - Detail Indication:Myalgia Start:09-Jun-2019 Instruction Type:Patient Education Patient Instructions Indication:Myalgia Start:09-Jun-2019 Instruction Type:Provider Instructions for Treatment How to access health informa tion online Indication:Nonsmoker Start:30-Sep-2018 Instruction Type:Patient Education How to access health informa tion online - Detail Indication:Nonsmoker Start:30-Sep-2018 Instruction Type:Patient Education Patient Instructions Indication:Nonsmoker Start:30-Sep-2018 Instruction Type:Provider Instructions for Treatment How to access health informa tion online Indication:Sore throat Start:03-Aug-2018 Instruction Type:Patient Education How to access health informa tion online - Detail Indication:Sore throat Start:03-Aug-2018 Instruction Type:Patient Education Patient Instructions Indication:Sore throat Start:03-Aug-2018 Instruction Type:Provider Instructions for Treatment How to access health informa tion online Indication:BMI 38.0-38.9,adult Start:20-May-2018 Instruction Type:Patient Education How to access health informa tion online - Detail Indication:BMI 38.0-38.9,adult Start:20-May-2018 Instruction Type:Patient Education Patient Instructions Indication:BMI 38.0-38.9,adult Start:20-May-2018 Instruction Type:Provider Instructions for Treatment How to access health informa tion online Indication:Upper respiratory infection, acute Start:09-Mar-2018 Instruction Type:Patient Education How to access health informa tion online - Detail Indication:Upper respiratory infection, acute Start:09-Mar-2018 Instruction Type:Patient Education Patient Instructions Indication:Upper respiratory infection, acute Start:09-Mar-2018 Instruction Type:Provider Instructions for Treatment How to access health informa tion online Indication:Constipation Start:10-Nov-2017 Instruction Type:Patient Education How to access health informa tion online - Detail Indication:Constipation Start:10-Nov-2017 Instruction Type:Patient Education Patient Instructions Indication:Constipation Start:10-Nov-2017 Instruction Type:Provider Instructions for Treatment How to access health informa tion online Indication:BMI 36.0-36.9,adult Start:16-Jun-2017 Instruction Type:Patient Education How to access health informa tion online - Detail Indication:BMI 36.0-36.9,adult Start:16-Jun-2017 Instruction Type:Patient Education Patient Instructions Indication:BMI 36.0-36.9,adult Start:16-Jun-2017 Instruction Type:Provider Instructions for Treatment How to access health informa tion online Indication:Fever Start:04-Jun-2017 Instruction Type:Patient Education How to access health informa tion online - Detail Indication:Fever Start:04-Jun-2017 Instruction Type:Patient Education Patient Instructions Indication:Fever Start:04-Jun-2017 Instruction Type:Provider Instructions for Treatment How to access health informa tion online Indication:Asthma in adult, mild intermittent, with acute exacerbation Start:06-May-2017 Instruction Type:Patient Education How to access health informa tion online - Detail Indication:Asthma in adult, mild intermittent, with acute exacerbation Start:06-May-2017 Instruction Type:Patient Education Patient Instructions Indication:Asthma in adult, mild intermittent, with acute exacerbation Start:06-May-2017 Instruction Type:Provider Instructions for Treatment How to access health informa tion online Indication:BMI 36.0-36.9,adult Start:26-Mar-2017 Instruction Type:Patient Education How to access health informa tion online - Detail Indication:BMI 36.0-36.9,adult Start:26-Mar-2017 Instruction Type:Patient Education Patient Instructions Indication:BMI 36.0-36.9,adult Start:26-Mar-2017 Instruction Type:Provider Instructions for Treatment How to access health informa tion online Indication:BMI 36.0-36.9,adult Start:19-Mar-2017 Instruction Type:Patient Education How to access health informa tion online - Detail Indication:BMI 36.0-36.9,adult Start:19-Mar-2017 Instruction Type:Patient Education Patient Instructions Indication:BMI 36.0-36.9,adult Start:19-Mar-2017 Instruction Type:Provider Instructions for Treatment How to access health informa tion online Indication:Abnormal weight gain Start:19-Feb-2017 Instruction Type:Patient Education How to access health informa tion online - Detail Indication:Abnormal weight gain Start:19-Feb-2017 Instruction Type:Patient Education Patient Instructions Indication:Abnormal weight gain Start:19-Feb-2017 Instruction Type:Provider Instructions for Treatment How to access health informa tion online Indication:Abnormal weight gain Start:05-Feb-2017 Instruction Type:Patient Education How to access health informa tion online - Detail Indication:Abnormal weight gain Start:05-Feb-2017 Instruction Type:Patient Education Patient Instructions Indication:Abnormal weight gain Start:05-Feb-2017 Instruction Type:Provider Instructions for Treatment How to access health informa tion online Indication:Abnormal weight gain Start:22-Jan-2017 Instruction Type:Patient Education How to access health informa tion online - Detail Indication:Abnormal weight gain Start:22-Jan-2017 Instruction Type:Patient Education Patient Instructions Indication:Abnormal weight gain Start:22-Jan-2017 Instruction Type:Provider Instructions for Treatment How to access health informa tion online Indication:Nonsmoker Start:03-Jan-2017 Instruction Type:Patient Education How to access health informa tion online - Detail Indication:Nonsmoker Start:03-Jan-2017 Instruction Type:Patient Education Patient Instructions Indication:Nonsmoker Start:03-Jan-2017 Instruction Type:Provider Instructions for Treatment How to access health informa tion online Indication:Pelvic pain in female Start:03-Dec-2016 Instruction Type:Patient Education How to access health informa tion online - Detail Indication:Pelvic pain in female Start:03-Dec-2016 Instruction Type:Patient Education Patient Instructions Indication:Pelvic pain in female Start:03-Dec-2016 Instruction Type:Provider Instructions for Treatment How to access health informa tion online Indication:BMI 36.0-36.9,adult Start:18-Nov-2016 Instruction Type:Patient Education How to access health informa tion online - Detail Indication:BMI 36.0-36.9,adult Start:18-Nov-2016 Instruction Type:Patient Education Patient Instructions Indication:BMI 36.0-36.9,adult Start:18-Nov-2016 Instruction Type:Provider Instructions for Treatment How to access health informa tion online Indication:Asthma in adult, mild intermittent, with acute exacerbation Start:12-Apr-2016 Instruction Type:Patient Education How to access health informa tion online - Detail Indication:Asthma in adult, mild intermittent, with acute exacerbation Start:12-Apr-2016 Instruction Type:Patient Education Patient Instructions Indication:Asthma in adult, mild intermittent, with acute exacerbation Start:12-Apr-2016 Instruction Type:Provider Instructions for Treatment How to access health informa tion online Indication:Dysuria Start:27-Feb-2016 Instruction Type:Patient Education How to access health informa tion online - Detail Indication:Dysuria Start:27-Feb-2016 Instruction Type:Patient Education Patient Instructions Indication:Dysuria Start:27-Feb-2016 Instruction Type:Provider Instructions for Treatment How to access health informa tion online Indication:Well woman exam (Renamed from Encounter for well woman exam) Start:05-Feb-2016 Instruction Type:Patient Education How to access health informa tion online - Detail Indication:Well woman exam (Renamed from Encounter for well woman exam) Start:05-Feb-2016 Instruction Type:Patient Education Patient Instructions Indication:Well woman exam (Renamed from Encounter for well woman exam) Start:05-Feb-2016 Instruction Type:Provider Instructions for Treatment Patient Instructions Indication:Dysthymic disorder Start:10-May-2014 Instruction Type:Provider Instructions for Treatment Patient Instructions Indication:Physical exam, routine Start:03-May-2013 Instruction Type:Provider Instructions for Treatment Patient Instructions Indication:Dysmenorrhea Start:22-Jan-2013 Instruction Type:Provider Instructions for Treatment Patient Instructions Indication:SHORTNESS OF BREATH Start:27-Apr-2012 Instruction Type:Provider Instructions for Treatment Patient Instructions Indication:Epigastric pain Start:21-Feb-2012 Instruction Type:Provider Instructions for Treatment Patient Instructions Indication:Epigastric pain Start:17-Jan-2012 Instruction Type:Provider Instructions for Treatment [facility]; [facility] Work Phone: Instructions* Name Dates Details Patient Instructions Indication:Nonsmoker Start:29-Jan-2022 Instruction Type:Provider Instructions for Treatment How to Access Health Informa tion Online using Patient Portal and [employer] Apps Indication:Nonsmoker Start:29-Jan-2022 Instruction Type:Patient Education Patient Instructions Indication:BMI 40.0-44.9, adult Start:15-Jan-2021 Instruction Type:Provider Instructions for Treatment Patient Instructions Indication:Breast mass Start:12-Jan-2021 Instruction Type:Provider Instructions for Treatment How to Access Health Informa tion Online using Patient Portal and [employer] Apps Indication:Breast mass Start:12-Jan-2021 Instruction Type:Patient Education How to Access Health Informa tion Online using Patient Portal and [employer] Apps Indication:Right upper quadrant pain Start:02-Jun-2020 Instruction Type:Patient Education Patient Instructions Indication:Right upper quadrant pain Start:02-Jun-2020 Instruction Type:Provider Instructions for Treatment Patient Instructions Indication:Anxiety and depression Start:18-Jul-2019 Instruction Type:Provider Instructions for Treatment How to access health informa tion online Indication:Myalgia Start:09-Jun-2019 Instruction Type:Patient Education How to access health informa tion online - Detail Indication:Myalgia Start:09-Jun-2019 Instruction Type:Patient Education Patient Instructions Indication:Myalgia Start:09-Jun-2019 Instruction Type:Provider Instructions for Treatment How to access health informa tion online Indication:Nonsmoker Start:30-Sep-2018 Instruction Type:Patient Education How to access health informa tion online - Detail Indication:Nonsmoker Start:30-Sep-2018 Instruction Type:Patient Education Patient Instructions Indication:Nonsmoker Start:30-Sep-2018 Instruction Type:Provider Instructions for Treatment How to access health informa tion online Indication:Sore throat Start:03-Aug-2018 Instruction Type:Patient Education How to access health informa tion online - Detail Indication:Sore throat Start:03-Aug-2018 Instruction Type:Patient Education Patient Instructions Indication:Sore throat Start:03-Aug-2018 Instruction Type:Provider Instructions for Treatment How to access health informa tion online Indication:BMI 38.0-38.9,adult Start:20-May-2018 Instruction Type:Patient Education How to access health informa tion online - Detail Indication:BMI 38.0-38.9,adult Start:20-May-2018 Instruction Type:Patient Education Patient Instructions Indication:BMI 38.0-38.9,adult Start:20-May-2018 Instruction Type:Provider Instructions for Treatment How to access health informa tion online Indication:Upper respiratory infection, acute Start:09-Mar-2018 Instruction Type:Patient Education How to access health informa tion online - Detail Indication:Upper respiratory infection, acute Start:09-Mar-2018 Instruction Type:Patient Education Patient Instructions Indication:Upper respiratory infection, acute Start:09-Mar-2018 Instruction Type:Provider Instructions for Treatment How to access health informa tion online Indication:Constipation Start:10-Nov-2017 Instruction Type:Patient Education How to access health informa tion online - Detail Indication:Constipation Start:10-Nov-2017 Instruction Type:Patient Education Patient Instructions Indication:Constipation Start:10-Nov-2017 Instruction Type:Provider Instructions for Treatment How to access health informa tion online Indication:BMI 36.0-36.9,adult Start:16-Jun-2017 Instruction Type:Patient Education How to access health informa tion online - Detail Indication:BMI 36.0-36.9,adult Start:16-Jun-2017 Instruction Type:Patient Education Patient Instructions Indication:BMI 36.0-36.9,adult Start:16-Jun-2017 Instruction Type:Provider Instructions for Treatment How to access health informa tion online Indication:Fever Start:04-Jun-2017 Instruction Type:Patient Education How to access health informa tion online - Detail Indication:Fever Start:04-Jun-2017 Instruction Type:Patient Education Patient Instructions Indication:Fever Start:04-Jun-2017 Instruction Type:Provider Instructions for Treatment How to access health informa tion online Indication:Asthma in adult, mild intermittent, with acute exacerbation Start:06-May-2017 Instruction Type:Patient Education How to access health informa tion online - Detail Indication:Asthma in adult, mild intermittent, with acute exacerbation Start:06-May-2017 Instruction Type:Patient Education Patient Instructions Indication:Asthma in adult, mild intermittent, with acute exacerbation Start:06-May-2017 Instruction Type:Provider Instructions for Treatment How to access health informa tion online Indication:BMI 36.0-36.9,adult Start:26-Mar-2017 Instruction Type:Patient Education How to access health informa tion online - Detail Indication:BMI 36.0-36.9,adult Start:26-Mar-2017 Instruction Type:Patient Education Patient Instructions Indication:BMI 36.0-36.9,adult Start:26-Mar-2017 Instruction Type:Provider Instructions for Treatment How to access health informa tion online Indication:BMI 36.0-36.9,adult Start:19-Mar-2017 Instruction Type:Patient Education How to access health informa tion online - Detail Indication:BMI 36.0-36.9,adult Start:19-Mar-2017 Instruction Type:Patient Education Patient Instructions Indication:BMI 36.0-36.9,adult Start:19-Mar-2017 Instruction Type:Provider Instructions for Treatment How to access health informa tion online Indication:Abnormal weight gain Start:19-Feb-2017 Instruction Type:Patient Education How to access health informa tion online - Detail Indication:Abnormal weight gain Start:19-Feb-2017 Instruction Type:Patient Education Patient Instructions Indication:Abnormal weight gain Start:19-Feb-2017 Instruction Type:Provider Instructions for Treatment How to access health informa tion online Indication:Abnormal weight gain Start:05-Feb-2017 Instruction Type:Patient Education How to access health informa tion online - Detail Indication:Abnormal weight gain Start:05-Feb-2017 Instruction Type:Patient Education Patient Instructions Indication:Abnormal weight gain Start:05-Feb-2017 Instruction Type:Provider Instructions for Treatment How to access health informa tion online Indication:Abnormal weight gain Start:22-Jan-2017 Instruction Type:Patient Education How to access health informa tion online - Detail Indication:Abnormal weight gain Start:22-Jan-2017 Instruction Type:Patient Education Patient Instructions Indication:Abnormal weight gain Start:22-Jan-2017 Instruction Type:Provider Instructions for Treatment How to access health informa tion online Indication:Nonsmoker Start:03-Jan-2017 Instruction Type:Patient Education How to access health informa tion online - Detail Indication:Nonsmoker Start:03-Jan-2017 Instruction Type:Patient Education Patient Instructions Indication:Nonsmoker Start:03-Jan-2017 Instruction Type:Provider Instructions for Treatment How to access health informa tion online Indication:Pelvic pain in female Start:03-Dec-2016 Instruction Type:Patient Education How to access health informa tion online - Detail Indication:Pelvic pain in female Start:03-Dec-2016 Instruction Type:Patient Education Patient Instructions Indication:Pelvic pain in female Start:03-Dec-2016 Instruction Type:Provider Instructions for Treatment How to access health informa tion online Indication:BMI 36.0-36.9,adult Start:18-Nov-2016 Instruction Type:Patient Education How to access health informa tion online - Detail Indication:BMI 36.0-36.9,adult Start:18-Nov-2016 Instruction Type:Patient Education Patient Instructions Indication:BMI 36.0-36.9,adult Start:18-Nov-2016 Instruction Type:Provider Instructions for Treatment How to access health informa tion online Indication:Asthma in adult, mild intermittent, with acute exacerbation Start:12-Apr-2016 Instruction Type:Patient Education How to access health informa tion online - Detail Indication:Asthma in adult, mild intermittent, with acute exacerbation Start:12-Apr-2016 Instruction Type:Patient Education Patient Instructions Indication:Asthma in adult, mild intermittent, with acute exacerbation Start:12-Apr-2016 Instruction Type:Provider Instructions for Treatment How to access health informa tion online Indication:Dysuria Start:27-Feb-2016 Instruction Type:Patient Education How to access health informa tion online - Detail Indication:Dysuria Start:27-Feb-2016 Instruction Type:Patient Education Patient Instructions Indication:Dysuria Start:27-Feb-2016 Instruction Type:Provider Instructions for Treatment How to access health informa tion online Indication:Well woman exam (Renamed from Encounter for well woman exam) Start:05-Feb-2016 Instruction Type:Patient Education How to access health informa tion online - Detail Indication:Well woman exam (Renamed from Encounter for well woman exam) Start:05-Feb-2016 Instruction Type:Patient Education Patient Instructions Indication:Well woman exam (Renamed from Encounter for well woman exam) Start:05-Feb-2016 Instruction Type:Provider Instructions for Treatment Patient Instructions Indication:Dysthymic disorder Start:10-May-2014 Instruction Type:Provider Instructions for Treatment Patient Instructions Indication:Physical exam, routine Start:03-May-2013 Instruction Type:Provider Instructions for Treatment Patient Instructions Indication:Dysmenorrhea Start:22-Jan-2013 Instruction Type:Provider Instructions for Treatment Patient Instructions Indication:SHORTNESS OF BREATH Start:27-Apr-2012 Instruction Type:Provider Instructions for Treatment Patient Instructions Indication:Epigastric pain Start:21-Feb-2012 Instruction Type:Provider Instructions for Treatment Patient Instructions Indication:Epigastric pain Start:17-Jan-2012 Instruction Type:Provider Instructions for Treatment [facility]; [facility] Work Phone: Instructions* Name Dates Details Patient Instructions Indication:Nonsmoker Start:29-Jan-2022 Instruction Type:Provider Instructions for Treatment How to Access Health Informa tion Online using Patient Portal and [employer] Apps Indication:Nonsmoker Start:29-Jan-2022 Instruction Type:Patient Education Patient Instructions Indication:BMI 40.0-44.9, adult Start:15-Jan-2021 Instruction Type:Provider Instructions for Treatment Patient Instructions Indication:Breast mass Start:12-Jan-2021 Instruction Type:Provider Instructions for Treatment How to Access Health Informa tion Online using Patient Portal and [employer] Apps Indication:Breast mass Start:12-Jan-2021 Instruction Type:Patient Education How to Access Health Informa tion Online using Patient Portal and [employer] Apps Indication:Right upper quadrant pain Start:02-Jun-2020 Instruction Type:Patient Education Patient Instructions Indication:Right upper quadrant pain Start:02-Jun-2020 Instruction Type:Provider Instructions for Treatment Patient Instructions Indication:Anxiety and depression Start:18-Jul-2019 Instruction Type:Provider Instructions for Treatment How to access health informa tion online Indication:Myalgia Start:09-Jun-2019 Instruction Type:Patient Education How to access health informa tion online - Detail Indication:Myalgia Start:09-Jun-2019 Instruction Type:Patient Education Patient Instructions Indication:Myalgia Start:09-Jun-2019 Instruction Type:Provider Instructions for Treatment How to access health informa tion online Indication:Nonsmoker Start:30-Sep-2018 Instruction Type:Patient Education How to access health informa tion online - Detail Indication:Nonsmoker Start:30-Sep-2018 Instruction Type:Patient Education Patient Instructions Indication:Nonsmoker Start:30-Sep-2018 Instruction Type:Provider Instructions for Treatment How to access health informa tion online Indication:Sore throat Start:03-Aug-2018 Instruction Type:Patient Education How to access health informa tion online - Detail Indication:Sore throat Start:03-Aug-2018 Instruction Type:Patient Education Patient Instructions Indication:Sore throat Start:03-Aug-2018 Instruction Type:Provider Instructions for Treatment How to access health informa tion online Indication:BMI 38.0-38.9,adult Start:20-May-2018 Instruction Type:Patient Education How to access health informa tion online - Detail Indication:BMI 38.0-38.9,adult Start:20-May-2018 Instruction Type:Patient Education Patient Instructions Indication:BMI 38.0-38.9,adult Start:20-May-2018 Instruction Type:Provider Instructions for Treatment How to access health informa tion online Indication:Upper respiratory infection, acute Start:09-Mar-2018 Instruction Type:Patient Education How to access health informa tion online - Detail Indication:Upper respiratory infection, acute Start:09-Mar-2018 Instruction Type:Patient Education Patient Instructions Indication:Upper respiratory infection, acute Start:09-Mar-2018 Instruction Type:Provider Instructions for Treatment How to access health informa tion online Indication:Constipation Start:10-Nov-2017 Instruction Type:Patient Education How to access health informa tion online - Detail Indication:Constipation Start:10-Nov-2017 Instruction Type:Patient Education Patient Instructions Indication:Constipation Start:10-Nov-2017 Instruction Type:Provider Instructions for Treatment How to access health informa tion online Indication:BMI 36.0-36.9,adult Start:16-Jun-2017 Instruction Type:Patient Education How to access health informa tion online - Detail Indication:BMI 36.0-36.9,adult Start:16-Jun-2017 Instruction Type:Patient Education Patient Instructions Indication:BMI 36.0-36.9,adult Start:16-Jun-2017 Instruction Type:Provider Instructions for Treatment How to access health informa tion online Indication:Fever Start:04-Jun-2017 Instruction Type:Patient Education How to access health informa tion online - Detail Indication:Fever Start:04-Jun-2017 Instruction Type:Patient Education Patient Instructions Indication:Fever Start:04-Jun-2017 Instruction Type:Provider Instructions for Treatment How to access health informa tion online Indication:Asthma in adult, mild intermittent, with acute exacerbation Start:06-May-2017 Instruction Type:Patient Education How to access health informa tion online - Detail Indication:Asthma in adult, mild intermittent, with acute exacerbation Start:06-May-2017 Instruction Type:Patient Education Patient Instructions Indication:Asthma in adult, mild intermittent, with acute exacerbation Start:06-May-2017 Instruction Type:Provider Instructions for Treatment How to access health informa tion online Indication:BMI 36.0-36.9,adult Start:26-Mar-2017 Instruction Type:Patient Education How to access health informa tion online - Detail Indication:BMI 36.0-36.9,adult Start:26-Mar-2017 Instruction Type:Patient Education Patient Instructions Indication:BMI 36.0-36.9,adult Start:26-Mar-2017 Instruction Type:Provider Instructions for Treatment How to access health informa tion online Indication:BMI 36.0-36.9,adult Start:19-Mar-2017 Instruction Type:Patient Education How to access health informa tion online - Detail Indication:BMI 36.0-36.9,adult Start:19-Mar-2017 Instruction Type:Patient Education Patient Instructions Indication:BMI 36.0-36.9,adult Start:19-Mar-2017 Instruction Type:Provider Instructions for Treatment How to access health informa tion online Indication:Abnormal weight gain Start:19-Feb-2017 Instruction Type:Patient Education How to access health informa tion online - Detail Indication:Abnormal weight gain Start:19-Feb-2017 Instruction Type:Patient Education Patient Instructions Indication:Abnormal weight gain Start:19-Feb-2017 Instruction Type:Provider Instructions for Treatment How to access health informa tion online Indication:Abnormal weight gain Start:05-Feb-2017 Instruction Type:Patient Education How to access health informa tion online - Detail Indication:Abnormal weight gain Start:05-Feb-2017 Instruction Type:Patient Education Patient Instructions Indication:Abnormal weight gain Start:05-Feb-2017 Instruction Type:Provider Instructions for Treatment How to access health informa tion online Indication:Abnormal weight gain Start:22-Jan-2017 Instruction Type:Patient Education How to access health informa tion online - Detail Indication:Abnormal weight gain Start:22-Jan-2017 Instruction Type:Patient Education Patient Instructions Indication:Abnormal weight gain Start:22-Jan-2017 Instruction Type:Provider Instructions for Treatment How to access health informa tion online Indication:Nonsmoker Start:03-Jan-2017 Instruction Type:Patient Education How to access health informa tion online - Detail Indication:Nonsmoker Start:03-Jan-2017 Instruction Type:Patient Education Patient Instructions Indication:Nonsmoker Start:03-Jan-2017 Instruction Type:Provider Instructions for Treatment How to access health informa tion online Indication:Pelvic pain in female Start:03-Dec-2016 Instruction Type:Patient Education How to access health informa tion online - Detail Indication:Pelvic pain in female Start:03-Dec-2016 Instruction Type:Patient Education Patient Instructions Indication:Pelvic pain in female Start:03-Dec-2016 Instruction Type:Provider Instructions for Treatment How to access health informa tion online Indication:BMI 36.0-36.9,adult Start:18-Nov-2016 Instruction Type:Patient Education How to access health informa tion online - Detail Indication:BMI 36.0-36.9,adult Start:18-Nov-2016 Instruction Type:Patient Education Patient Instructions Indication:BMI 36.0-36.9,adult Start:18-Nov-2016 Instruction Type:Provider Instructions for Treatment How to access health informa tion online Indication:Asthma in adult, mild intermittent, with acute exacerbation Start:12-Apr-2016 Instruction Type:Patient Education How to access health informa tion online - Detail Indication:Asthma in adult, mild intermittent, with acute exacerbation Start:12-Apr-2016 Instruction Type:Patient Education Patient Instructions Indication:Asthma in adult, mild intermittent, with acute exacerbation Start:12-Apr-2016 Instruction Type:Provider Instructions for Treatment How to access health informa tion online Indication:Dysuria Start:27-Feb-2016 Instruction Type:Patient Education How to access health informa tion online - Detail Indication:Dysuria Start:27-Feb-2016 Instruction Type:Patient Education Patient Instructions Indication:Dysuria Start:27-Feb-2016 Instruction Type:Provider Instructions for Treatment How to access health informa tion online Indication:Well woman exam (Renamed from Encounter for well woman exam) Start:05-Feb-2016 Instruction Type:Patient Education How to access health informa tion online - Detail Indication:Well woman exam (Renamed from Encounter for well woman exam) Start:05-Feb-2016 Instruction Type:Patient Education Patient Instructions Indication:Well woman exam (Renamed from Encounter for well woman exam) Start:05-Feb-2016 Instruction Type:Provider Instructions for Treatment Patient Instructions Indication:Dysthymic disorder Start:10-May-2014 Instruction Type:Provider Instructions for Treatment Patient Instructions Indication:Physical exam, routine Start:03-May-2013 Instruction Type:Provider Instructions for Treatment Patient Instructions Indication:Dysmenorrhea Start:22-Jan-2013 Instruction Type:Provider Instructions for Treatment Patient Instructions Indication:SHORTNESS OF BREATH Start:27-Apr-2012 Instruction Type:Provider Instructions for Treatment Patient Instructions Indication:Epigastric pain Start:21-Feb-2012 Instruction Type:Provider Instructions for Treatment Patient Instructions Indication:Epigastric pain Start:17-Jan-2012 Instruction Type:Provider Instructions for Treatment [facility]; [facility] Work Phone: Instructions* Name Dates Details Patient Instructions Indication:Nonsmoker Start:29-Jan-2022 Instruction Type:Provider Instructions for Treatment How to Access Health Informa tion Online using Patient Portal and [employer] Apps Indication:Nonsmoker Start:29-Jan-2022 Instruction Type:Patient Education Patient Instructions Indication:BMI 40.0-44.9, adult Start:15-Jan-2021 Instruction Type:Provider Instructions for Treatment Patient Instructions Indication:Breast mass Start:12-Jan-2021 Instruction Type:Provider Instructions for Treatment How to Access Health Informa tion Online using Patient Portal and [employer] Apps Indication:Breast mass Start:12-Jan-2021 Instruction Type:Patient Education How to Access Health Informa tion Online using Patient Portal and [employer] Apps Indication:Right upper quadrant pain Start:02-Jun-2020 Instruction Type:Patient Education Patient Instructions Indication:Right upper quadrant pain Start:02-Jun-2020 Instruction Type:Provider Instructions for Treatment Patient Instructions Indication:Anxiety and depression Start:18-Jul-2019 Instruction Type:Provider Instructions for Treatment How to access health informa tion online Indication:Myalgia Start:09-Jun-2019 Instruction Type:Patient Education How to access health informa tion online - Detail Indication:Myalgia Start:09-Jun-2019 Instruction Type:Patient Education Patient Instructions Indication:Myalgia Start:09-Jun-2019 Instruction Type:Provider Instructions for Treatment How to access health informa tion online Indication:Nonsmoker Start:30-Sep-2018 Instruction Type:Patient Education How to access health informa tion online - Detail Indication:Nonsmoker Start:30-Sep-2018 Instruction Type:Patient Education Patient Instructions Indication:Nonsmoker Start:30-Sep-2018 Instruction Type:Provider Instructions for Treatment How to access health informa tion online Indication:Sore throat Start:03-Aug-2018 Instruction Type:Patient Education How to access health informa tion online - Detail Indication:Sore throat Start:03-Aug-2018 Instruction Type:Patient Education Patient Instructions Indication:Sore throat Start:03-Aug-2018 Instruction Type:Provider Instructions for Treatment How to access health informa tion online Indication:BMI 38.0-38.9,adult Start:20-May-2018 Instruction Type:Patient Education How to access health informa tion online - Detail Indication:BMI 38.0-38.9,adult Start:20-May-2018 Instruction Type:Patient Education Patient Instructions Indication:BMI 38.0-38.9,adult Start:20-May-2018 Instruction Type:Provider Instructions for Treatment How to access health informa tion online Indication:Upper respiratory infection, acute Start:09-Mar-2018 Instruction Type:Patient Education How to access health informa tion online - Detail Indication:Upper respiratory infection, acute Start:09-Mar-2018 Instruction Type:Patient Education Patient Instructions Indication:Upper respiratory infection, acute Start:09-Mar-2018 Instruction Type:Provider Instructions for Treatment How to access health informa tion online Indication:Constipation Start:10-Nov-2017 Instruction Type:Patient Education How to access health informa tion online - Detail Indication:Constipation Start:10-Nov-2017 Instruction Type:Patient Education Patient Instructions Indication:Constipation Start:10-Nov-2017 Instruction Type:Provider Instructions for Treatment How to access health informa tion online Indication:BMI 36.0-36.9,adult Start:16-Jun-2017 Instruction Type:Patient Education How to access health informa tion online - Detail Indication:BMI 36.0-36.9,adult Start:16-Jun-2017 Instruction Type:Patient Education Patient Instructions Indication:BMI 36.0-36.9,adult Start:16-Jun-2017 Instruction Type:Provider Instructions for Treatment How to access health informa tion online Indication:Fever Start:04-Jun-2017 Instruction Type:Patient Education How to access health informa tion online - Detail Indication:Fever Start:04-Jun-2017 Instruction Type:Patient Education Patient Instructions Indication:Fever Start:04-Jun-2017 Instruction Type:Provider Instructions for Treatment How to access health informa tion online Indication:Asthma in adult, mild intermittent, with acute exacerbation Start:06-May-2017 Instruction Type:Patient Education How to access health informa tion online - Detail Indication:Asthma in adult, mild intermittent, with acute exacerbation Start:06-May-2017 Instruction Type:Patient Education Patient Instructions Indication:Asthma in adult, mild intermittent, with acute exacerbation Start:06-May-2017 Instruction Type:Provider Instructions for Treatment How to access health informa tion online Indication:BMI 36.0-36.9,adult Start:26-Mar-2017 Instruction Type:Patient Education How to access health informa tion online - Detail Indication:BMI 36.0-36.9,adult Start:26-Mar-2017 Instruction Type:Patient Education Patient Instructions Indication:BMI 36.0-36.9,adult Start:26-Mar-2017 Instruction Type:Provider Instructions for Treatment How to access health informa tion online Indication:BMI 36.0-36.9,adult Start:19-Mar-2017 Instruction Type:Patient Education How to access health informa tion online - Detail Indication:BMI 36.0-36.9,adult Start:19-Mar-2017 Instruction Type:Patient Education Patient Instructions Indication:BMI 36.0-36.9,adult Start:19-Mar-2017 Instruction Type:Provider Instructions for Treatment How to access health informa tion online Indication:Abnormal weight gain Start:19-Feb-2017 Instruction Type:Patient Education How to access health informa tion online - Detail Indication:Abnormal weight gain Start:19-Feb-2017 Instruction Type:Patient Education Patient Instructions Indication:Abnormal weight gain Start:19-Feb-2017 Instruction Type:Provider Instructions for Treatment How to access health informa tion online Indication:Abnormal weight gain Start:05-Feb-2017 Instruction Type:Patient Education How to access health informa tion online - Detail Indication:Abnormal weight gain Start:05-Feb-2017 Instruction Type:Patient Education Patient Instructions Indication:Abnormal weight gain Start:05-Feb-2017 Instruction Type:Provider Instructions for Treatment How to access health informa tion online Indication:Abnormal weight gain Start:22-Jan-2017 Instruction Type:Patient Education How to access health informa tion online - Detail Indication:Abnormal weight gain Start:22-Jan-2017 Instruction Type:Patient Education Patient Instructions Indication:Abnormal weight gain Start:22-Jan-2017 Instruction Type:Provider Instructions for Treatment How to access health informa tion online Indication:Nonsmoker Start:03-Jan-2017 Instruction Type:Patient Education How to access health informa tion online - Detail Indication:Nonsmoker Start:03-Jan-2017 Instruction Type:Patient Education Patient Instructions Indication:Nonsmoker Start:03-Jan-2017 Instruction Type:Provider Instructions for Treatment How to access health informa tion online Indication:Pelvic pain in female Start:03-Dec-2016 Instruction Type:Patient Education How to access health informa tion online - Detail Indication:Pelvic pain in female Start:03-Dec-2016 Instruction Type:Patient Education Patient Instructions Indication:Pelvic pain in female Start:03-Dec-2016 Instruction Type:Provider Instructions for Treatment How to access health informa tion online Indication:BMI 36.0-36.9,adult Start:18-Nov-2016 Instruction Type:Patient Education How to access health informa tion online - Detail Indication:BMI 36.0-36.9,adult Start:18-Nov-2016 Instruction Type:Patient Education Patient Instructions Indication:BMI 36.0-36.9,adult Start:18-Nov-2016 Instruction Type:Provider Instructions for Treatment How to access health informa tion online Indication:Asthma in adult, mild intermittent, with acute exacerbation Start:12-Apr-2016 Instruction Type:Patient Education How to access health informa tion online - Detail Indication:Asthma in adult, mild intermittent, with acute exacerbation Start:12-Apr-2016 Instruction Type:Patient Education Patient Instructions Indication:Asthma in adult, mild intermittent, with acute exacerbation Start:12-Apr-2016 Instruction Type:Provider Instructions for Treatment How to access health informa tion online Indication:Dysuria Start:27-Feb-2016 Instruction Type:Patient Education How to access health informa tion online - Detail Indication:Dysuria Start:27-Feb-2016 Instruction Type:Patient Education Patient Instructions Indication:Dysuria Start:27-Feb-2016 Instruction Type:Provider Instructions for Treatment How to access health informa tion online Indication:Well woman exam (Renamed from Encounter for well woman exam) Start:05-Feb-2016 Instruction Type:Patient Education How to access health informa tion online - Detail Indication:Well woman exam (Renamed from Encounter for well woman exam) Start:05-Feb-2016 Instruction Type:Patient Education Patient Instructions Indication:Well woman exam (Renamed from Encounter for well woman exam) Start:05-Feb-2016 Instruction Type:Provider Instructions for Treatment Patient Instructions Indication:Dysthymic disorder Start:10-May-2014 Instruction Type:Provider Instructions for Treatment Patient Instructions Indication:Physical exam, routine Start:03-May-2013 Instruction Type:Provider Instructions for Treatment Patient Instructions Indication:Dysmenorrhea Start:22-Jan-2013 Instruction Type:Provider Instructions for Treatment Patient Instructions Indication:SHORTNESS OF BREATH Start:27-Apr-2012 Instruction Type:Provider Instructions for Treatment Patient Instructions Indication:Epigastric pain Start:21-Feb-2012 Instruction Type:Provider Instructions for Treatment Patient Instructions Indication:Epigastric pain Start:17-Jan-2012 Instruction Type:Provider Instructions for Treatment [facility]; [facility] Work Phone: Instructions* Name Dates Details Patient Instructions Indication:Nonsmoker Start:29-Jan-2022 Instruction Type:Provider Instructions for Treatment How to Access Health Informa tion Online using Patient Portal and [employer] Apps Indication:Nonsmoker Start:29-Jan-2022 Instruction Type:Patient Education Patient Instructions Indication:BMI 40.0-44.9, adult Start:15-Jan-2021 Instruction Type:Provider Instructions for Treatment Patient Instructions Indication:Breast mass Start:12-Jan-2021 Instruction Type:Provider Instructions for Treatment How to Access Health Informa tion Online using Patient Portal and [employer] Apps Indication:Breast mass Start:12-Jan-2021 Instruction Type:Patient Education How to Access Health Informa tion Online using Patient Portal and [employer] Apps Indication:Right upper quadrant pain Start:02-Jun-2020 Instruction Type:Patient Education Patient Instructions Indication:Right upper quadrant pain Start:02-Jun-2020 Instruction Type:Provider Instructions for Treatment Patient Instructions Indication:Anxiety and depression Start:18-Jul-2019 Instruction Type:Provider Instructions for Treatment How to access health informa tion online Indication:Myalgia Start:09-Jun-2019 Instruction Type:Patient Education How to access health informa tion online - Detail Indication:Myalgia Start:09-Jun-2019 Instruction Type:Patient Education Patient Instructions Indication:Myalgia Start:09-Jun-2019 Instruction Type:Provider Instructions for Treatment How to access health informa tion online Indication:Nonsmoker Start:30-Sep-2018 Instruction Type:Patient Education How to access health informa tion online - Detail Indication:Nonsmoker Start:30-Sep-2018 Instruction Type:Patient Education Patient Instructions Indication:Nonsmoker Start:30-Sep-2018 Instruction Type:Provider Instructions for Treatment How to access health informa tion online Indication:Sore throat Start:03-Aug-2018 Instruction Type:Patient Education How to access health informa tion online - Detail Indication:Sore throat Start:03-Aug-2018 Instruction Type:Patient Education Patient Instructions Indication:Sore throat Start:03-Aug-2018 Instruction Type:Provider Instructions for Treatment How to access health informa tion online Indication:BMI 38.0-38.9,adult Start:20-May-2018 Instruction Type:Patient Education How to access health informa tion online - Detail Indication:BMI 38.0-38.9,adult Start:20-May-2018 Instruction Type:Patient Education Patient Instructions Indication:BMI 38.0-38.9,adult Start:20-May-2018 Instruction Type:Provider Instructions for Treatment How to access health informa tion online Indication:Upper respiratory infection, acute Start:09-Mar-2018 Instruction Type:Patient Education How to access health informa tion online - Detail Indication:Upper respiratory infection, acute Start:09-Mar-2018 Instruction Type:Patient Education Patient Instructions Indication:Upper respiratory infection, acute Start:09-Mar-2018 Instruction Type:Provider Instructions for Treatment How to access health informa tion online Indication:Constipation Start:10-Nov-2017 Instruction Type:Patient Education How to access health informa tion online - Detail Indication:Constipation Start:10-Nov-2017 Instruction Type:Patient Education Patient Instructions Indication:Constipation Start:10-Nov-2017 Instruction Type:Provider Instructions for Treatment How to access health informa tion online Indication:BMI 36.0-36.9,adult Start:16-Jun-2017 Instruction Type:Patient Education How to access health informa tion online - Detail Indication:BMI 36.0-36.9,adult Start:16-Jun-2017 Instruction Type:Patient Education Patient Instructions Indication:BMI 36.0-36.9,adult Start:16-Jun-2017 Instruction Type:Provider Instructions for Treatment How to access health informa tion online Indication:Fever Start:04-Jun-2017 Instruction Type:Patient Education How to access health informa tion online - Detail Indication:Fever Start:04-Jun-2017 Instruction Type:Patient Education Patient Instructions Indication:Fever Start:04-Jun-2017 Instruction Type:Provider Instructions for Treatment How to access health informa tion online Indication:Asthma in adult, mild intermittent, with acute exacerbation Start:06-May-2017 Instruction Type:Patient Education How to access health informa tion online - Detail Indication:Asthma in adult, mild intermittent, with acute exacerbation Start:06-May-2017 Instruction Type:Patient Education Patient Instructions Indication:Asthma in adult, mild intermittent, with acute exacerbation Start:06-May-2017 Instruction Type:Provider Instructions for Treatment How to access health informa tion online Indication:BMI 36.0-36.9,adult Start:26-Mar-2017 Instruction Type:Patient Education How to access health informa tion online - Detail Indication:BMI 36.0-36.9,adult Start:26-Mar-2017 Instruction Type:Patient Education Patient Instructions Indication:BMI 36.0-36.9,adult Start:26-Mar-2017 Instruction Type:Provider Instructions for Treatment How to access health informa tion online Indication:BMI 36.0-36.9,adult Start:19-Mar-2017 Instruction Type:Patient Education How to access health informa tion online - Detail Indication:BMI 36.0-36.9,adult Start:19-Mar-2017 Instruction Type:Patient Education Patient Instructions Indication:BMI 36.0-36.9,adult Start:19-Mar-2017 Instruction Type:Provider Instructions for Treatment How to access health informa tion online Indication:Abnormal weight gain Start:19-Feb-2017 Instruction Type:Patient Education How to access health informa tion online - Detail Indication:Abnormal weight gain Start:19-Feb-2017 Instruction Type:Patient Education Patient Instructions Indication:Abnormal weight gain Start:19-Feb-2017 Instruction Type:Provider Instructions for Treatment How to access health informa tion online Indication:Abnormal weight gain Start:05-Feb-2017 Instruction Type:Patient Education How to access health informa tion online - Detail Indication:Abnormal weight gain Start:05-Feb-2017 Instruction Type:Patient Education Patient Instructions Indication:Abnormal weight gain Start:05-Feb-2017 Instruction Type:Provider Instructions for Treatment How to access health informa tion online Indication:Abnormal weight gain Start:22-Jan-2017 Instruction Type:Patient Education How to access health informa tion online - Detail Indication:Abnormal weight gain Start:22-Jan-2017 Instruction Type:Patient Education Patient Instructions Indication:Abnormal weight gain Start:22-Jan-2017 Instruction Type:Provider Instructions for Treatment How to access health informa tion online Indication:Nonsmoker Start:03-Jan-2017 Instruction Type:Patient Education How to access health informa tion online - Detail Indication:Nonsmoker Start:03-Jan-2017 Instruction Type:Patient Education Patient Instructions Indication:Nonsmoker Start:03-Jan-2017 Instruction Type:Provider Instructions for Treatment How to access health informa tion online Indication:Pelvic pain in female Start:03-Dec-2016 Instruction Type:Patient Education How to access health informa tion online - Detail Indication:Pelvic pain in female Start:03-Dec-2016 Instruction Type:Patient Education Patient Instructions Indication:Pelvic pain in female Start:03-Dec-2016 Instruction Type:Provider Instructions for Treatment How to access health informa tion online Indication:BMI 36.0-36.9,adult Start:18-Nov-2016 Instruction Type:Patient Education How to access health informa tion online - Detail Indication:BMI 36.0-36.9,adult Start:18-Nov-2016 Instruction Type:Patient Education Patient Instructions Indication:BMI 36.0-36.9,adult Start:18-Nov-2016 Instruction Type:Provider Instructions for Treatment How to access health informa tion online Indication:Asthma in adult, mild intermittent, with acute exacerbation Start:12-Apr-2016 Instruction Type:Patient Education How to access health informa tion online - Detail Indication:Asthma in adult, mild intermittent, with acute exacerbation Start:12-Apr-2016 Instruction Type:Patient Education Patient Instructions Indication:Asthma in adult, mild intermittent, with acute exacerbation Start:12-Apr-2016 Instruction Type:Provider Instructions for Treatment How to access health informa tion online Indication:Dysuria Start:27-Feb-2016 Instruction Type:Patient Education How to access health informa tion online - Detail Indication:Dysuria Start:27-Feb-2016 Instruction Type:Patient Education Patient Instructions Indication:Dysuria Start:27-Feb-2016 Instruction Type:Provider Instructions for Treatment How to access health informa tion online Indication:Well woman exam (Renamed from Encounter for well woman exam) Start:05-Feb-2016 Instruction Type:Patient Education How to access health informa tion online - Detail Indication:Well woman exam (Renamed from Encounter for well woman exam) Start:05-Feb-2016 Instruction Type:Patient Education Patient Instructions Indication:Well woman exam (Renamed from Encounter for well woman exam) Start:05-Feb-2016 Instruction Type:Provider Instructions for Treatment Patient Instructions Indication:Dysthymic disorder Start:10-May-2014 Instruction Type:Provider Instructions for Treatment Patient Instructions Indication:Physical exam, routine Start:03-May-2013 Instruction Type:Provider Instructions for Treatment Patient Instructions Indication:Dysmenorrhea Start:22-Jan-2013 Instruction Type:Provider Instructions for Treatment Patient Instructions Indication:SHORTNESS OF BREATH Start:27-Apr-2012 Instruction Type:Provider Instructions for Treatment Patient Instructions Indication:Epigastric pain Start:21-Feb-2012 Instruction Type:Provider Instructions for Treatment Patient Instructions Indication:Epigastric pain Start:17-Jan-2012 Instruction Type:Provider Instructions for Treatment [facility] Work Phone: Instructions* Name Dates Details Patient Instructions Indication:Nonsmoker Start:29-Jan-2022 Instruction Type:Provider Instructions for Treatment How to Access Health Informa tion Online using Patient Portal and [employer] Apps Indication:Nonsmoker Start:29-Jan-2022 Instruction Type:Patient Education Patient Instructions Indication:BMI 40.0-44.9, adult Start:15-Jan-2021 Instruction Type:Provider Instructions for Treatment Patient Instructions Indication:Breast mass Start:12-Jan-2021 Instruction Type:Provider Instructions for Treatment How to Access Health Informa tion Online using Patient Portal and [employer] Apps Indication:Breast mass Start:12-Jan-2021 Instruction Type:Patient Education How to Access Health Informa tion Online using Patient Portal and [employer] Apps Indication:Right upper quadrant pain Start:02-Jun-2020 Instruction Type:Patient Education Patient Instructions Indication:Right upper quadrant pain Start:02-Jun-2020 Instruction Type:Provider Instructions for Treatment Patient Instructions Indication:Anxiety and depression Start:18-Jul-2019 Instruction Type:Provider Instructions for Treatment How to access health informa tion online Indication:Myalgia Start:09-Jun-2019 Instruction Type:Patient Education How to access health informa tion online - Detail Indication:Myalgia Start:09-Jun-2019 Instruction Type:Patient Education Patient Instructions Indication:Myalgia Start:09-Jun-2019 Instruction Type:Provider Instructions for Treatment How to access health informa tion online Indication:Nonsmoker Start:30-Sep-2018 Instruction Type:Patient Education How to access health informa tion online - Detail Indication:Nonsmoker Start:30-Sep-2018 Instruction Type:Patient Education Patient Instructions Indication:Nonsmoker Start:30-Sep-2018 Instruction Type:Provider Instructions for Treatment How to access health informa tion online Indication:Sore throat Start:03-Aug-2018 Instruction Type:Patient Education How to access health informa tion online - Detail Indication:Sore throat Start:03-Aug-2018 Instruction Type:Patient Education Patient Instructions Indication:Sore throat Start:03-Aug-2018 Instruction Type:Provider Instructions for Treatment How to access health informa tion online Indication:BMI 38.0-38.9,adult Start:20-May-2018 Instruction Type:Patient Education How to access health informa tion online - Detail Indication:BMI 38.0-38.9,adult Start:20-May-2018 Instruction Type:Patient Education Patient Instructions Indication:BMI 38.0-38.9,adult Start:20-May-2018 Instruction Type:Provider Instructions for Treatment How to access health informa tion online Indication:Upper respiratory infection, acute Start:09-Mar-2018 Instruction Type:Patient Education How to access health informa tion online - Detail Indication:Upper respiratory infection, acute Start:09-Mar-2018 Instruction Type:Patient Education Patient Instructions Indication:Upper respiratory infection, acute Start:09-Mar-2018 Instruction Type:Provider Instructions for Treatment How to access health informa tion online Indication:Constipation Start:10-Nov-2017 Instruction Type:Patient Education How to access health informa tion online - Detail Indication:Constipation Start:10-Nov-2017 Instruction Type:Patient Education Patient Instructions Indication:Constipation Start:10-Nov-2017 Instruction Type:Provider Instructions for Treatment How to access health informa tion online Indication:BMI 36.0-36.9,adult Start:16-Jun-2017 Instruction Type:Patient Education How to access health informa tion online - Detail Indication:BMI 36.0-36.9,adult Start:16-Jun-2017 Instruction Type:Patient Education Patient Instructions Indication:BMI 36.0-36.9,adult Start:16-Jun-2017 Instruction Type:Provider Instructions for Treatment How to access health informa tion online Indication:Fever Start:04-Jun-2017 Instruction Type:Patient Education How to access health informa tion online - Detail Indication:Fever Start:04-Jun-2017 Instruction Type:Patient Education Patient Instructions Indication:Fever Start:04-Jun-2017 Instruction Type:Provider Instructions for Treatment How to access health informa tion online Indication:Asthma in adult, mild intermittent, with acute exacerbation Start:06-May-2017 Instruction Type:Patient Education How to access health informa tion online - Detail Indication:Asthma in adult, mild intermittent, with acute exacerbation Start:06-May-2017 Instruction Type:Patient Education Patient Instructions Indication:Asthma in adult, mild intermittent, with acute exacerbation Start:06-May-2017 Instruction Type:Provider Instructions for Treatment How to access health informa tion online Indication:BMI 36.0-36.9,adult Start:26-Mar-2017 Instruction Type:Patient Education How to access health informa tion online - Detail Indication:BMI 36.0-36.9,adult Start:26-Mar-2017 Instruction Type:Patient Education Patient Instructions Indication:BMI 36.0-36.9,adult Start:26-Mar-2017 Instruction Type:Provider Instructions for Treatment How to access health informa tion online Indication:BMI 36.0-36.9,adult Start:19-Mar-2017 Instruction Type:Patient Education How to access health informa tion online - Detail Indication:BMI 36.0-36.9,adult Start:19-Mar-2017 Instruction Type:Patient Education Patient Instructions Indication:BMI 36.0-36.9,adult Start:19-Mar-2017 Instruction Type:Provider Instructions for Treatment How to access health informa tion online Indication:Abnormal weight gain Start:19-Feb-2017 Instruction Type:Patient Education How to access health informa tion online - Detail Indication:Abnormal weight gain Start:19-Feb-2017 Instruction Type:Patient Education Patient Instructions Indication:Abnormal weight gain Start:19-Feb-2017 Instruction Type:Provider Instructions for Treatment How to access health informa tion online Indication:Abnormal weight gain Start:05-Feb-2017 Instruction Type:Patient Education How to access health informa tion online - Detail Indication:Abnormal weight gain Start:05-Feb-2017 Instruction Type:Patient Education Patient Instructions Indication:Abnormal weight gain Start:05-Feb-2017 Instruction Type:Provider Instructions for Treatment How to access health informa tion online Indication:Abnormal weight gain Start:22-Jan-2017 Instruction Type:Patient Education How to access health informa tion online - Detail Indication:Abnormal weight gain Start:22-Jan-2017 Instruction Type:Patient Education Patient Instructions Indication:Abnormal weight gain Start:22-Jan-2017 Instruction Type:Provider Instructions for Treatment How to access health informa tion online Indication:Nonsmoker Start:03-Jan-2017 Instruction Type:Patient Education How to access health informa tion online - Detail Indication:Nonsmoker Start:03-Jan-2017 Instruction Type:Patient Education Patient Instructions Indication:Nonsmoker Start:03-Jan-2017 Instruction Type:Provider Instructions for Treatment How to access health informa tion online Indication:Pelvic pain in female Start:03-Dec-2016 Instruction Type:Patient Education How to access health informa tion online - Detail Indication:Pelvic pain in female Start:03-Dec-2016 Instruction Type:Patient Education Patient Instructions Indication:Pelvic pain in female Start:03-Dec-2016 Instruction Type:Provider Instructions for Treatment How to access health informa tion online Indication:BMI 36.0-36.9,adult Start:18-Nov-2016 Instruction Type:Patient Education How to access health informa tion online - Detail Indication:BMI 36.0-36.9,adult Start:18-Nov-2016 Instruction Type:Patient Education Patient Instructions Indication:BMI 36.0-36.9,adult Start:18-Nov-2016 Instruction Type:Provider Instructions for Treatment How to access health informa tion online Indication:Asthma in adult, mild intermittent, with acute exacerbation Start:12-Apr-2016 Instruction Type:Patient Education How to access health informa tion online - Detail Indication:Asthma in adult, mild intermittent, with acute exacerbation Start:12-Apr-2016 Instruction Type:Patient Education Patient Instructions Indication:Asthma in adult, mild intermittent, with acute exacerbation Start:12-Apr-2016 Instruction Type:Provider Instructions for Treatment How to access health informa tion online Indication:Dysuria Start:27-Feb-2016 Instruction Type:Patient Education How to access health informa tion online - Detail Indication:Dysuria Start:27-Feb-2016 Instruction Type:Patient Education Patient Instructions Indication:Dysuria Start:27-Feb-2016 Instruction Type:Provider Instructions for Treatment How to access health informa tion online Indication:Well woman exam (Renamed from Encounter for well woman exam) Start:05-Feb-2016 Instruction Type:Patient Education How to access health informa tion online - Detail Indication:Well woman exam (Renamed from Encounter for well woman exam) Start:05-Feb-2016 Instruction Type:Patient Education Patient Instructions Indication:Well woman exam (Renamed from Encounter for well woman exam) Start:05-Feb-2016 Instruction Type:Provider Instructions for Treatment Patient Instructions Indication:Dysthymic disorder Start:10-May-2014 Instruction Type:Provider Instructions for Treatment Patient Instructions Indication:Physical exam, routine Start:03-May-2013 Instruction Type:Provider Instructions for Treatment Patient Instructions Indication:Dysmenorrhea Start:22-Jan-2013 Instruction Type:Provider Instructions for Treatment Patient Instructions Indication:SHORTNESS OF BREATH Start:27-Apr-2012 Instruction Type:Provider Instructions for Treatment Patient Instructions Indication:Epigastric pain Start:21-Feb-2012 Instruction Type:Provider Instructions for Treatment Patient Instructions Indication:Epigastric pain Start:17-Jan-2012 Instruction Type:Provider Instructions for Treatment [facility] Work Phone: Progress note No data available for this section [facility] Progress note Author Dr. Frankel [facility] July 23, 2022 4:45pm Note Date/Time July 23, 2022 4:45 pm [facility] Medical Records Department [address] [place] [address] OB Triage Progress Note 07/23/22 1639 MR#: [id number] Acct: [id number] Name: CRISTELA SHAH Rep #:[id number] : 1995 26 From: Do feng MD PCP: Dr. Rosanna Scales, DO Status:REG CLI Y DOS: Location: [place] [id number] Progress Notes Date of Service: 07/23/22 Progress Note: Patient presents for triage evaluation secondary to elevated blood pressure FHT: 140 Moderate variability reactive no decelerations category I tracing [place]: no regular Contractions Assessment and plan: ghtn Reactive NST labs WNL growth US ordered plan home bp monitoring, reassuring maternal and status patient discharged to home to follow-up in office. See problem list details for additional plan information. Laboratory Studies: Laboratory Tests 07/23/22 07/23/22 Range/Units 15:35 15:35 WBC 10.2 (4.4-11.0) K/mm3 RBC 3.82 L (4.2-5.4) M/mm3 Hgb 10.4 L (12.0-15.0) g/dL Hct 31.9 L (37-47) % MCV 83.5 (81-99) fL MCH 27.2 (27.0-32.0) pg MCHC 32.6 (32-36) g/dL RDW Std Deviation 41.8 (35.1-43.9) fl RDW Coeff of Kyler 14.1 (11.6-14.6) % Plt Count 220 (150-450) K/mm3 MPV 11.7 (6.2-12.0) fl Creatinine 0.52 L (0.55-1.02) mg/dL Estim Creat Clear Calc 139.09 ml/min Est GFR (MDRD) Af Amer 178 (>60) mL/min Est GFR (MDRD) Non-Af 147 (>60) mL/min Uric Acid 3.3 (2.6-6.0) mg/dL AST 12 L (15-37) U/L ALT 12 L (13-56) U/L Charges/Coding Procedures Urinary/Genital 52xxx-59xxx: [id number] non-stress test Interp Assessment & Plan (1) Gestational hypertension: COMMENT: growth us, steroids 07/23 and 07/24. procardia started. nl labs. plan2x weekly nsts, weekly yuliana, and weekly labs., home bp monitoring 07/23/22 3355 <Electronically signed by Do braun MD> Date _ Do Frankel MD Cosigner Signature (if applicable): Date CC: Dr. Rosanna Scales DO; Dr. Do Frankel MD ~ Signed [facility] Work Phone: Progress note Author Jaqueline Hutchison [facility] Note Date/Time September 30, 2024 1:45 pm [facility] [address], [address] [place] [address] OFFICE VISIT Date of Service: 09/30/24 MR#: [id number] Acct: [id number] Name: CRISTELA SHAH Rep #: [id number] : 1995 Provider: LUIZ Hutchison Age/Sex: 28/F [facility] [facility] Status: Signed with Addenda ADDENDUM by Cande Rogers on 09/30/24 at 1350 Office Procedure Documentation entered by Cande Rogers 09/30/24 13:50: Immunizations Adacel(Tdap Adolesn/Adult)(PF) 2 Lf-(2.5-5-3-5)-5 Lf/0.5 mL IM syringe Performing Provider: LUIZ Graves NP Performing Location: [facility] Administered by: Cande Rogers on 09/30/24 13:49 Dose Route Admin Location Dispensed Lot Number Expiration Date [facility] [employer] Cutter 0.5 mL IM Left Deltoid 0.5 mL [id number] 09/18/25 74470-255-68 [employer] VIS Given Date VIS Provided VIS Publication Date 09/30/24 Single Vaccine 24 Eligibility Eligibility Date Funding Source Not Applicable Date _ cc: ~* Signed Intake Vital Signs 07/16/24 11:24 09/09/24 15:28 09/30/24 13:28 Height 5 ft 4 in 5 ft 4 in 5 ft 4 in Weight: 245 lb 8 oz BMI 42.1 BP 136/78 H Intake Visit Reasons: 28wk ob/glucose Mammalogist Required: No Is patient in pain?: No Allergies No Known Allergies Allergy (Verified 06/12/25 13:33) Medications ?Medication ?Instructions ?Recorded ?Confirmed ?Type citalopram 40 mg tablet 40 mg PO DAILY depression #3 0 tabs 09/09/22 09/30/24 Rx pantoprazole 20 mg tablet,delayed 40 mg (2 x 20 mg) PO BID #60 01/05/24 09/30/24 Rx release TABLETS labetalol 100 mg tablet 100 mg PO BID 03/11/2409/30 History PNV 153-FA 400 mcg-om3 35 mg-dha tab PO 05/07/2409/30 History 25 mg-epa 5 mg-fish oil chew tablet ondansetron 4 mg disintegrating 4 mg PO Q8H PRN nausea and 05/21/24 09/30/24 Rx tablet vomiting #60 tabs Last Menstrual Period: 03/17/24 Zika: Zika virus screening: Negative : No PFSH PFSH Medical History Supervision of high risk , antepartum PONV (postoperative nausea and vomiting) Anemia Anxiety Wears contact lenses Wears glasses Low iron Heartburn Non-smoker Hypertension Severely increased blood pressure and swelling during Breech presentation Gestational hypertension Obesity affecting Abnormality of hormone Depression Surgical History History of esophagogastroduodenoscopy (EGD) Status post section Family History Father Hypertension Social History adopted: No household members: spouse and children housing: house number of children: 1 current occupational status: employed current occupation: [employer] current occupational exposures/hazards: No pets and animals: Yes (2) pets and animals: dog(s) history of recent travel: Yes (- February) out of state: Yes out of country: No sexually active: Yes Smoking Status: Never smoker alcohol intake: current details: social not while substance use type: does not use well-balanced diet: daily or most days caffeine: Yes Type: carbonated beverages Number of servings: 1 eating out: 4 or more times/week during the past year weight has: decreased > 10 lbs what type of physical activity do you participate in: none deloris/gnosticist: Restoration seatbelt use: always do you feel safe at home: Yes 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 Date Name GA/Weeks Outcome Route Bth Weight Infant Gen Labor Lgth Anesthesia Del Locatn Provider FOB 09/04/22 Jessica 37 live - full term 6lbs Male s dawson [facility] Vande Velchris Delivery Date: 09/04/22 Last Updated by: Abigail Reed HPI 28wk ob/glucose Details: CRISTELA SHAH is a 28 year old who presents for routine OB visit. OB Visit MIKE Calculator Estimated Delivery Date Method Current WG Current Estimate 12/22/24 LMP (Certain) 28w 1d Other Estimates 12/24/24 Ultrasound #1 27w 6d Expected Delivery Route/Plan prior cs. needs delivered at 38 weeks. but if goes into labor on her own wants to . RLTCS BS with AVIS Specific Issue/Plans Covid status: [] Flu vaccine: [] Tdap vaccine: given Rhogam: na LARC form signed: yes Problem list reviewed and updated with the most current plan of care details and appropriate orders placed. Relevant counseling for the gestational age provided. Continue routine care and follow up unless otherwise noted in visit notes/problem list details Initial Weight: Not Recorded Date -?-?-?-?-?-?-?-?-?-?-?-?- EGA Weight BP Urine Prot -?-?-?-?-?-?-?-?-?-?-?-?- Glucose FHR FuHt Pres Dilation -?-?-?-?-?-?-?-?-?-?-?-?- Effaced St Visit Note 05/21/24 -?-?-?-?-?-?-?-?-?-?-?-?- 9w 2d 226 lb 6 oz 136/88 -?-?-?-?-?-?-?-?-?-?-?-?- 184 -?-?-?-?-?-?-?-?-?-?-?-?- JV- CRL consiste nt with LMP. declines nipt. taking labetalol. 05/28/24 -?-?-?-?-?-?-?-?-?-?-?-?- 10w 2d 228 lb 6 oz 153/91 -?-?-?-?-?-?-?-?-?-?-?-?- 167 -?-?-?-?-?-?-?-?-?-?-?-?- JV- patient retu rns today for more bleeding. no vaginal infection or ectropion suspected. Mucous with blood seen coming from the cervix. ultrasound shows movement and heart tones. scant evidence of a ela present. bleeding precautions given. pelvic rest encouraged. 06/16/24 -?-?-?-?-?-?-?-?-?-?-?-?- 13w 0d 230 lb 160/95 133/84 Negative -?-?-?-?-?-?-?-?-?-?-?-?- Negative 160 -?-?-?-?-?-?-?-?-?-?-?-?- SM- no vb some c ramping 07/01/24 -?-?-?-?-?-?-?-?-?-?-?-?- 15w 1d 228 lb 4 oz 137/87 -?-?-?-?-?-?-?-?-?-?-?-?- 157 -?-?-?-?-?-?-?-?-?-?-?-?- KW- random spott ing at times and light cramping after BM today. heartbeat and movement on US today. HAs MFM US on 07/29. 07/16/24 -?-?-?-?-?-?-?-?-?-?-?-?- 17w 2d 233 lb 8 oz 135/79 Nega tive -?-?-?-?-?-?-?-?-?-?-?-?- Negative 150 -?-?-?-?-?-?-?-?-?-?--?-?- JV- no lof but s till has spotting from time to time. sees mfm for scan 07/29. no clots or collecting blood on a pad or underwear. 08/11/24 -?-?-?-?-?-?-?-?-?-?-?-?- 21w 0d 236 lb 124/81 Negative -?-?-?-?-?-?-?-?-?-?-?-?- Negative 140 -?-?-?-?-?-?-?-?-?-?-?-?- JV- m ultrasou nd notes follow up on placentation but states is posterior. patient states they told her to practice pelvic rest. will inquire. no other complaints. 09/09/24 -?-?-?-?-?-?-?-?-?-?-?-?- 25w 1d 243 lb 137/84 Negative -?-?-?-?-?-?-?-?-?-?-?-?- Negative 140 25 -?-?-?-?-?-?-?-?-?-?-?-?- SM- no vb crampi ng lof good fm 09/30/24 -?-?-?-?-?-?-?-?--?-?-?-?- 28w 1d 245 lb 8 oz 136/78 -?-?-?-?-?-?-?-?-?-?-?-?- 148 29 -?-?-?-?-?-?-?-?-?-?-?-?- MH-NO VB, LOF. Good FM.Larc, 28 wk labs. tdap. ACOG First Trimester First Trimester: Discussed Second Trimester Second Trimester: Signs and Symptoms of Labor, Selecting a care provider, Reproductive Life Planning & Contreception, Care Planning, Depression/Anxiety and Intimate Partner Violence; Discussed Tobacco Cessation Third Trimester Third Trimester: Pain Management Plans, Labor support person(s), Immediate Larc, Circumcision preference, Movement Monitoring, Signs and Symptoms of Preeclampsia, Feeding No , Education and Family Medical Leave or Disability Forms; Discussed Trial of Labor after Counseling ROS Const Reports system reviewed and no additional complaints, except as documented GI Denies abdominal pain, Denies nausea and Denies vomiting Exam Const General: cooperative Nutritional Appearance: well nourished GI Palpation: soft, nontender and other (gravid) Coding Level of Care Code OB Routine Diagnoses Supervision of high risk , antepartum O09.90 28 weeks gestation of Z3A.28 Weeks of gestation: 28 weeks Obesity affecting in third trimester, unspecified obesity type O99.213 Trimester: third trimester Obesity type affecting : unspecified obesity Primary hypertension I10 Hypertension type: primary hypertension Hx of section Z98.891 Depression with anxiety F41.8 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 PC Jessica, Jarek (2) : Status: Acute Qualifiers: Weeks of gestation: 28 weeks Qualified Code(s): Z3A.28 - 28 weeks gestation of Comment: elects NIPT with gender (3) Obesity affecting : Status: Acute Qualifiers: Trimester: third trimester Obesity type affecting : unspecified obesity Qualified Code(s): O99.213 - Obesity complicating , third trimester Comment: HgbA1c (4) Hypertension: Status: Chronic Qualifiers: Hypertension type: primary hypertension Qualified Code(s): I10 - Essential (primary) hypertension Comment: labetalol 100 bid deliver 38 weeks (5) Hx of section: Status: Acute Comment: Gestational HTN & breech. C/S 12/03/24 JV. 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 Orders: Orders POC Urinalysis 2 Dip (Clinic) Today Tdap Immunization Today Z23 - Encounter for immunization Medications: New Adacel(Tdap Adolesn/Adult)(PF) (diph,pertuss(acel),tet vac(PF)) 0.5 mL IM ONCE 0.5 mL 0RF NS Z23 - Encounter for immunization Plan problem list reviewed and updated for most current plan of care and appropriate orders placed. Relevant counseling for the gestational age appropriate provided and ACOG education checklist updated. Continue routine care and follow up. 09/30/24 0604 <Electronically signed by Jaqueline graham APPRENTICE ELECTRICIAN APPRENTICE ELECTRICIAN-C> Date _ Jaqueline Hutchison APPRENTICE ELECTRICIAN APPRENTICE ELECTRICIAN-C Cosigner Signature: Date (if applicable) CC: ~ [facility] Work Phone: Reason for referral (narrative)No reason for referral information availableBlChildren[facility] Work Phone: Family History Unknown Family Member Name Dates Details Father Comments:livimg htn Status:Active Mother Comments:living pvcs /arrhyt hmia depression Status:Active Paternal Grandmother Comments:ischemic heart dies ase age 51 Status:Active Unknown Family Member Name Dates Details Father Comments:livimg htn Status:Active Mother Comments:living pvcs /arrhyt hmia depression Status:Active Paternal Grandmother Comments:ischemic heart dies ase age 51 Status:Active Unknown Family Member Name Dates Details Father Comments:livimg htn Status:Active Mother Comments:living pvcs /arrhyt hmia depression Status:Active Paternal Grandmother Comments:ischemic heart dies ase age 51 Status:Active Unknown Family Member Name Dates Details Father Comments:livimg htn Status:Active Mother Comments:living pvcs /arrhyt hmia depression Status:Active Paternal Grandmother Comments:ischemic heart dies ase age 51 Status:Active Unknown Family Member Name Dates Details Father Comments:livimg htn Status:Active Mother Comments:living pvcs /arrhyt hmia depression Status:Active Paternal Grandmother Comments:ischemic heart dies ase age 51 Status:Active Unknown Family Member Name Dates Details Father Comments:livimg htn Status:Active Mother Comments:living pvcs /arrhyt hmia depression Status:Active Paternal Grandmother Comments:ischemic heart dies ase age 51 Status:Active Unknown Family Member Name Dates Details Father Comments:livimg htn Status:Active Mother Comments:living pvcs /arrhyt hmia depression Status:Active Paternal Grandmother Comments:ischemic heart dies ase age 51 Status:Active Unknown Family Member Name Dates Details Father Comments:livimg htn Status:Active Mother Comments:living pvcs /arrhyt hmia depression Status:Active Paternal Grandmother Comments:ischemic heart dies ase age 51 Status:Active Unknown Family Member Name Dates Details Father Comments:livimg htn Status:Active Mother Comments:living pvcs /arrhyt hmia depression Status:Active Paternal Grandmother Comments:ischemic heart dies ase age 51 Status:Active Unknown Family Member Name Dates Details Father Comments:livimg htn Status:Active Mother Comments:living pvcs /arrhyt hmia depression Status:Active Paternal Grandmother Comments:ischemic heart dies ase age 51 Status:Active Unknown Family Member Name Dates Details Father Comments:livimg htn Status:Active Mother Comments:living pvcs /arrhyt hmia depression Status:Active Paternal Grandmother Comments:ischemic heart dies ase age 51 Status:Active Unknown Family Member Name Dates Details Father Comments:livimg htn Status:Active Mother Comments:living pvcs /arrhyt hmia depression Status:Active Paternal Grandmother Comments:ischemic heart dies ase age 51 Status:Active Unknown Family Member Name Dates Details Father Comments:livimg htn Status:Active Mother Comments:living pvcs /arrhyt hmia depression Status:Active Paternal Grandmother Comments:ischemic heart dies ase age 51 Status:Active Unknown Family Member Name Dates Details Father Comments:livimg htn Status:Active Mother Comments:living pvcs /arrhyt hmia depression Status:Active Paternal Grandmother Comments:ischemic heart dies ase age 51 Status:Active Unknown Family Member Name Dates Details Father Comments:livimg htn Status:Active Mother Comments:living pvcs /arrhyt hmia depression Status:Active Paternal Grandmother Comments:ischemic heart dies ase age 51 Status:Active Unknown Family Member Name Dates Details Father Comments:livimg htn Status:Active Mother Comments:living pvcs /arrhyt hmia depression Status:Active Paternal Grandmother Comments:ischemic heart dies ase age 51 Status:Active Unknown Family Member Name Dates Details Father Comments:livimg htn Status:Active Mother Comments:living pvcs /arrhyt hmia depression Status:Active Paternal Grandmother Comments:ischemic heart dies ase age 51 Status:Active Relationship Condition Age at Onset Recorded Date/T amos father Hypertension Unknown Unknown Family Member Name Dates Details Father Comments:livimg htn Status:Active Mother Comments:living pvcs /arrhyt hmia depression Status:Active Paternal Grandmother Comments:ischemic heart dies ase age 51 Status:Active Unknown Family Member Name Dates Details Father Comments:livimg htn Status:Active Mother Comments:living pvcs /arrhyt hmia depression Status:Active Paternal Grandmother Comments:ischemic heart dies ase age 51 Status:Active Unknown Family Member Name Dates Details Father Comments:livimg htn Status:Active Mother Comments:living pvcs /arrhyt hmia depression Status:Active Paternal Grandmother Comments:ischemic heart dies ase age 51 Status:Active Relationship Condition Age at Onset Recorded Date/T amos Not Specified Malignant neoplasm of colon Unknown Diabetes mellitus Unknown Cardiac disease Unknown father Hypertension Unknown Unknown Family Member Name Dates Details Father Comments:livimg htn Status:Active Mother Comments:living pvcs /arrhyt hmia depression Status:Active Paternal Grandmother Comments:ischemic heart dies ase age 51 Status:Active Unknown Family Member Name Dates Details Father Comments:livimg htn Status:Active Mother Comments:living pvcs /arrhyt hmia depression Status:Active Paternal Grandmother Comments:ischemic heart dies ase age 51 Status:Active Unknown Family Member Name Dates Details Father Comments:livimg htn Status:Active Mother Comments:living pvcs /arrhyt hmia depression Status:Active Paternal Grandmother Comments:ischemic heart dies ase age 51 Status:Active Instructions Name Dates Details Upper respiratory infection, acute : How to access health information online Indication:Upper respiratory infection, acute Upper respiratory infection, acute : How to access health information online - Detail Indication:Upper respiratory infection, acute Upper respiratory infection, acute : Patient Instructions Indication:Upper respiratory infection, acute Constipation : How to access health information online Indication:Constipation Constipation : How to access health information online - Detail Indication:Constipation Constipation : Patient Instr uctions Indication:Constipation BMI 36.0-36.9,adult : How to access health information online Indication:BMI 36.0-36.9,adult BMI 36.0-36.9,adult : How to access health information online - Detail Indication:BMI 36.0-36.9,adult BMI 36.0-36.9,adult : Patien t Instructions Indication:BMI 36.0-36.9,adult Fever : How to access health information online Indication:Fever Fever : How to access health information online - Detail Indication:Fever Fever : Patient Instructions Indication:Fever Asthma in adult, mild interm ittent, with acute exacerbation : How to access health information online Indication:Asthma in adult, mild intermittent, with acute exacerbation Asthma in adult, mild interm ittent, with acute exacerbation : How to access health information online - Detail Indication:Asthma in adult, mild intermittent, with acute exacerbation Asthma in adult, mild interm ittent, with acute exacerbation : Patient Instructions Indication:Asthma in adult, mild intermittent, with acute exacerbation Abnormal weight gain : How t o access health information online Indication:Abnormal weight gain Abnormal weight gain : How t o access health information online - Detail Indication:Abnormal weight gain Abnormal weight gain : Patie nt Instructions Indication:Abnormal weight gain Nonsmoker : How to access he alth information online Indication:Nonsmoker Nonsmoker : How to access he alth information online - Detail Indication:Nonsmoker Nonsmoker : Patient Instruct ions Indication:Nonsmoker Pelvic pain in female : How to access health information online Indication:Pelvic pain in female Pelvic pain in female : How to access health information online - Detail Indication:Pelvic pain in female Pelvic pain in female : Dayana ent Instructions Indication:Pelvic pain in female Dysuria : How to access heal th information online Indication:Dysuria Dysuria : How to access heal th information online - Detail Indication:Dysuria Dysuria : Patient Instructio ns Indication:Dysuria Well woman exam (Renamed fro m Encounter for well woman exam) : How to access health information online Indication:Well woman exam (Renamed from Encounter for well woman exam) Well woman exam (Renamed fro m Encounter for well woman exam) : How to access health information online - Detail Indication:Well woman exam (Renamed from Encounter for well woman exam) Well woman exam (Renamed fro m Encounter for well woman exam) : Patient Instructions Indication:Well woman exam (Renamed from Encounter for well woman exam) Dysthymic disorder : Patient Instructions Indication:Dysthymic disorder Physical exam, routine : Pat ient Instructions Indication:Physical exam, routine Dysmenorrhea : Patient Instr uctions Indication:Dysmenorrhea SHORTNESS OF BREATH : Patien t Instructions Indication:SHORTNESS OF BREATH Epigastric pain : Patient In structions Indication:Epigastric pain Name Dates Details BMI 38.0-38.9,adult : How to access health information online Indication:BMI 38.0-38.9,adult BMI 38.0-38.9,adult : How to access health information online - Detail Indication:BMI 38.0-38.9,adult BMI 38.0-38.9,adult : Patien t Instructions Indication:BMI 38.0-38.9,adult Upper respiratory infection, acute : How to access health information online Indication:Upper respiratory infection, acute Upper respiratory infection, acute : How to access health information online - Detail Indication:Upper respiratory infection, acute Upper respiratory infection, acute : Patient Instructions Indication:Upper respiratory infection, acute Constipation : How to access health information online Indication:Constipation Constipation : How to access health information online - Detail Indication:Constipation Constipation : Patient Instr uctions Indication:Constipation BMI 36.0-36.9,adult : How to access health information online Indication:BMI 36.0-36.9,adult BMI 36.0-36.9,adult : How to access health information online - Detail Indication:BMI 36.0-36.9,adult BMI 36.0-36.9,adult : Patien t Instructions Indication:BMI 36.0-36.9,adult Fever : How to access health information online Indication:Fever Fever : How to access health information online - Detail Indication:Fever Fever : Patient Instructions Indication:Fever Asthma in adult, mild interm ittent, with acute exacerbation : How to access health information online Indication:Asthma in adult, mild intermittent, with acute exacerbation Asthma in adult, mild interm ittent, with acute exacerbation : How to access health information online - Detail Indication:Asthma in adult, mild intermittent, with acute exacerbation Asthma in adult, mild interm ittent, with acute exacerbation : Patient Instructions Indication:Asthma in adult, mild intermittent, with acute exacerbation Abnormal weight gain : How t o access health information online Indication:Abnormal weight gain Abnormal weight gain : How t o access health information online - Detail Indication:Abnormal weight gain Abnormal weight gain : Patie nt Instructions Indication:Abnormal weight gain Nonsmoker : How to access he alth information online Indication:Nonsmoker Nonsmoker : How to access he alth information online - Detail Indication:Nonsmoker Nonsmoker : Patient Instruct ions Indication:Nonsmoker Pelvic pain in female : How to access health information online Indication:Pelvic pain in female Pelvic pain in female : How to access health information online - Detail Indication:Pelvic pain in female Pelvic pain in female : Dayana ent Instructions Indication:Pelvic pain in female Dysuria : How to access heal th information online Indication:Dysuria Dysuria : How to access heal th information online - Detail Indication:Dysuria Dysuria : Patient Instructio ns Indication:Dysuria Well woman exam (Renamed fro m Encounter for well woman exam) : How to access health information online Indication:Well woman exam (Renamed from Encounter for well woman exam) Well woman exam (Renamed fro m Encounter for well woman exam) : How to access health information online - Detail Indication:Well woman exam (Renamed from Encounter for well woman exam) Well woman exam (Renamed fro m Encounter for well woman exam) : Patient Instructions Indication:Well woman exam (Renamed from Encounter for well woman exam) Dysthymic disorder : Patient Instructions Indication:Dysthymic disorder Physical exam, routine : Pat ient Instructions Indication:Physical exam, routine Dysmenorrhea : Patient Instr uctions Indication:Dysmenorrhea SHORTNESS OF BREATH : Patien t Instructions Indication:SHORTNESS OF BREATH Epigastric pain : Patient In structions Indication:Epigastric pain Name Dates Details BMI 38.0-38.9,adult : How to access health information online Indication:BMI 38.0-38.9,adult BMI 38.0-38.9,adult : How to access health information online - Detail Indication:BMI 38.0-38.9,adult BMI 38.0-38.9,adult : Patien t Instructions Indication:BMI 38.0-38.9,adult Upper respiratory infection, acute : How to access health information online Indication:Upper respiratory infection, acute Upper respiratory infection, acute : How to access health information online - Detail Indication:Upper respiratory infection, acute Upper respiratory infection, acute : Patient Instructions Indication:Upper respiratory infection, acute Constipation : How to access health information online Indication:Constipation Constipation : How to access health information online - Detail Indication:Constipation Constipation : Patient Instr uctions Indication:Constipation BMI 36.0-36.9,adult : How to access health information online Indication:BMI 36.0-36.9,adult BMI 36.0-36.9,adult : How to access health information online - Detail Indication:BMI 36.0-36.9,adult BMI 36.0-36.9,adult : Patien t Instructions Indication:BMI 36.0-36.9,adult Fever : How to access health information online Indication:Fever Fever : How to access health information online - Detail Indication:Fever Fever : Patient Instructions Indication:Fever Asthma in adult, mild interm ittent, with acute exacerbation : How to access health information online Indication:Asthma in adult, mild intermittent, with acute exacerbation Asthma in adult, mild interm ittent, with acute exacerbation : How to access health information online - Detail Indication:Asthma in adult, mild intermittent, with acute exacerbation Asthma in adult, mild interm ittent, with acute exacerbation : Patient Instructions Indication:Asthma in adult, mild intermittent, with acute exacerbation Abnormal weight gain : How t o access health information online Indication:Abnormal weight gain Abnormal weight gain : How t o access health information online - Detail Indication:Abnormal weight gain Abnormal weight gain : Patie nt Instructions Indication:Abnormal weight gain Nonsmoker : How to access he alth information online Indication:Nonsmoker Nonsmoker : How to access he alth information online - Detail Indication:Nonsmoker Nonsmoker : Patient Instruct ions Indication:Nonsmoker Pelvic pain in female : How to access health information online Indication:Pelvic pain in female Pelvic pain in female : How to access health information online - Detail Indication:Pelvic pain in female Pelvic pain in female : Dayana ent Instructions Indication:Pelvic pain in female Dysuria : How to access heal th information online Indication:Dysuria Dysuria : How to access heal th information online - Detail Indication:Dysuria Dysuria : Patient Instructio ns Indication:Dysuria Well woman exam (Renamed fro m Encounter for well woman exam) : How to access health information online Indication:Well woman exam (Renamed from Encounter for well woman exam) Well woman exam (Renamed fro m Encounter for well woman exam) : How to access health information online - Detail Indication:Well woman exam (Renamed from Encounter for well woman exam) Well woman exam (Renamed fro m Encounter for well woman exam) : Patient Instructions Indication:Well woman exam (Renamed from Encounter for well woman exam) Dysthymic disorder : Patient Instructions Indication:Dysthymic disorder Physical exam, routine : Pat ient Instructions Indication:Physical exam, routine Dysmenorrhea : Patient Instr uctions Indication:Dysmenorrhea SHORTNESS OF BREATH : Patien t Instructions Indication:SHORTNESS OF BREATH Epigastric pain : Patient In structions Indication:Epigastric pain Name Dates Details BMI 38.0-38.9,adult : How to access health information online Indication:BMI 38.0-38.9,adult BMI 38.0-38.9,adult : How to access health information online - Detail Indication:BMI 38.0-38.9,adult BMI 38.0-38.9,adult : Patien t Instructions Indication:BMI 38.0-38.9,adult Upper respiratory infection, acute : How to access health information online Indication:Upper respiratory infection, acute Upper respiratory infection, acute : How to access health information online - Detail Indication:Upper respiratory infection, acute Upper respiratory infection, acute : Patient Instructions Indication:Upper respiratory infection, acute Constipation : How to access health information online Indication:Constipation Constipation : How to access health information online - Detail Indication:Constipation Constipation : Patient Instr uctions Indication:Constipation BMI 36.0-36.9,adult : How to access health information online Indication:BMI 36.0-36.9,adult BMI 36.0-36.9,adult : How to access health information online - Detail Indication:BMI 36.0-36.9,adult BMI 36.0-36.9,adult : Patien t Instructions Indication:BMI 36.0-36.9,adult Fever : How to access health information online Indication:Fever Fever : How to access health information online - Detail Indication:Fever Fever : Patient Instructions Indication:Fever Asthma in adult, mild interm ittent, with acute exacerbation : How to access health information online Indication:Asthma in adult, mild intermittent, with acute exacerbation Asthma in adult, mild interm ittent, with acute exacerbation : How to access health information online - Detail Indication:Asthma in adult, mild intermittent, with acute exacerbation Asthma in adult, mild interm ittent, with acute exacerbation : Patient Instructions Indication:Asthma in adult, mild intermittent, with acute exacerbation Abnormal weight gain : How t o access health information online Indication:Abnormal weight gain Abnormal weight gain : How t o access health information online - Detail Indication:Abnormal weight gain Abnormal weight gain : Patie nt Instructions Indication:Abnormal weight gain Nonsmoker : How to access he alth information online Indication:Nonsmoker Nonsmoker : How to access he alth information online - Detail Indication:Nonsmoker Nonsmoker : Patient Instruct ions Indication:Nonsmoker Pelvic pain in female : How to access health information online Indication:Pelvic pain in female Pelvic pain in female : How to access health information online - Detail Indication:Pelvic pain in female Pelvic pain in female : Dayana ent Instructions Indication:Pelvic pain in female Dysuria : How to access heal th information online Indication:Dysuria Dysuria : How to access heal th information online - Detail Indication:Dysuria Dysuria : Patient Instructio ns Indication:Dysuria Well woman exam (Renamed fro m Encounter for well woman exam) : How to access health information online Indication:Well woman exam (Renamed from Encounter for well woman exam) Well woman exam (Renamed fro m Encounter for well woman exam) : How to access health information online - Detail Indication:Well woman exam (Renamed from Encounter for well woman exam) Well woman exam (Renamed fro m Encounter for well woman exam) : Patient Instructions Indication:Well woman exam (Renamed from Encounter for well woman exam) Dysthymic disorder : Patient Instructions Indication:Dysthymic disorder Physical exam, routine : Pat ient Instructions Indication:Physical exam, routine Dysmenorrhea : Patient Instr uctions Indication:Dysmenorrhea SHORTNESS OF BREATH : Patien t Instructions Indication:SHORTNESS OF BREATH Epigastric pain : Patient In structions Indication:Epigastric pain Name Dates Details How to access health informa tion online Indication:Nonsmoker Start:30-Sep-2018 Instruction Type:Patient Education How to access health informa tion online - Detail Indication:Nonsmoker Start:30-Sep-2018 Instruction Type:Patient Education Patient Instructions Indication:Nonsmoker Start:30-Sep-2018 Instruction Type:Provider Instructions for Treatment How to access health informa tion online Indication:Sore throat Start:03-Aug-2018 Instruction Type:Patient Education How to access health informa tion online - Detail Indication:Sore throat Start:03-Aug-2018 Instruction Type:Patient Education Patient Instructions Indication:Sore throat Start:03-Aug-2018 Instruction Type:Provider Instructions for Treatment How to access health informa tion online Indication:BMI 38.0-38.9,adult Start:20-May-2018 Instruction Type:Patient Education How to access health informa tion online - Detail Indication:BMI 38.0-38.9,adult Start:20-May-2018 Instruction Type:Patient Education Patient Instructions Indication:BMI 38.0-38.9,adult Start:20-May-2018 Instruction Type:Provider Instructions for Treatment How to access health informa tion online Indication:Upper respiratory infection, acute Start:09-Mar-2018 Instruction Type:Patient Education How to access health informa tion online - Detail Indication:Upper respiratory infection, acute Start:09-Mar-2018 Instruction Type:Patient Education Patient Instructions Indication:Upper respiratory infection, acute Start:09-Mar-2018 Instruction Type:Provider Instructions for Treatment How to access health informa tion online Indication:Constipation Start:10-Nov-2017 Instruction Type:Patient Education How to access health informa tion online - Detail Indication:Constipation Start:10-Nov-2017 Instruction Type:Patient Education Patient Instructions Indication:Constipation Start:10-Nov-2017 Instruction Type:Provider Instructions for Treatment How to access health informa tion online Indication:BMI 36.0-36.9,adult Start:16-Jun-2017 Instruction Type:Patient Education How to access health informa tion online - Detail Indication:BMI 36.0-36.9,adult Start:16-Jun-2017 Instruction Type:Patient Education Patient Instructions Indication:BMI 36.0-36.9,adult Start:16-Jun-2017 Instruction Type:Provider Instructions for Treatment How to access health informa tion online Indication:Fever Start:04-Jun-2017 Instruction Type:Patient Education How to access health informa tion online - Detail Indication:Fever Start:04-Jun-2017 Instruction Type:Patient Education Patient Instructions Indication:Fever Start:04-Jun-2017 Instruction Type:Provider Instructions for Treatment How to access health informa tion online Indication:Asthma in adult, mild intermittent, with acute exacerbation Start:06-May-2017 Instruction Type:Patient Education How to access health informa tion online - Detail Indication:Asthma in adult, mild intermittent, with acute exacerbation Start:06-May-2017 Instruction Type:Patient Education Patient Instructions Indication:Asthma in adult, mild intermittent, with acute exacerbation Start:06-May-2017 Instruction Type:Provider Instructions for Treatment How to access health informa tion online Indication:BMI 36.0-36.9,adult Start:26-Mar-2017 Instruction Type:Patient Education How to access health informa tion online - Detail Indication:BMI 36.0-36.9,adult Start:26-Mar-2017 Instruction Type:Patient Education Patient Instructions Indication:BMI 36.0-36.9,adult Start:26-Mar-2017 Instruction Type:Provider Instructions for Treatment How to access health informa tion online Indication:BMI 36.0-36.9,adult Start:19-Mar-2017 Instruction Type:Patient Education How to access health informa tion online - Detail Indication:BMI 36.0-36.9,adult Start:19-Mar-2017 Instruction Type:Patient Education Patient Instructions Indication:BMI 36.0-36.9,adult Start:19-Mar-2017 Instruction Type:Provider Instructions for Treatment How to access health informa tion online Indication:Abnormal weight gain Start:19-Feb-2017 Instruction Type:Patient Education How to access health informa tion online - Detail Indication:Abnormal weight gain Start:19-Feb-2017 Instruction Type:Patient Education Patient Instructions Indication:Abnormal weight gain Start:19-Feb-2017 Instruction Type:Provider Instructions for Treatment How to access health informa tion online Indication:Abnormal weight gain Start:05-Feb-2017 Instruction Type:Patient Education How to access health informa tion online - Detail Indication:Abnormal weight gain Start:05-Feb-2017 Instruction Type:Patient Education Patient Instructions Indication:Abnormal weight gain Start:05-Feb-2017 Instruction Type:Provider Instructions for Treatment How to access health informa tion online Indication:Abnormal weight gain Start:22-Jan-2017 Instruction Type:Patient Education How to access health informa tion online - Detail Indication:Abnormal weight gain Start:22-Jan-2017 Instruction Type:Patient Education Patient Instructions Indication:Abnormal weight gain Start:22-Jan-2017 Instruction Type:Provider Instructions for Treatment How to access health informa tion online Indication:Nonsmoker Start:03-Jan-2017 Instruction Type:Patient Education How to access health informa tion online - Detail Indication:Nonsmoker Start:03-Jan-2017 Instruction Type:Patient Education Patient Instructions Indication:Nonsmoker Start:03-Jan-2017 Instruction Type:Provider Instructions for Treatment How to access health informa tion online Indication:Pelvic pain in female Start:03-Dec-2016 Instruction Type:Patient Education How to access health informa tion online - Detail Indication:Pelvic pain in female Start:03-Dec-2016 Instruction Type:Patient Education Patient Instructions Indication:Pelvic pain in female Start:03-Dec-2016 Instruction Type:Provider Instructions for Treatment How to access health informa tion online Indication:BMI 36.0-36.9,adult Start:18-Nov-2016 Instruction Type:Patient Education How to access health informa tion online - Detail Indication:BMI 36.0-36.9,adult Start:18-Nov-2016 Instruction Type:Patient Education Patient Instructions Indication:BMI 36.0-36.9,adult Start:18-Nov-2016 Instruction Type:Provider Instructions for Treatment How to access health informa tion online Indication:Asthma in adult, mild intermittent, with acute exacerbation Start:12-Apr-2016 Instruction Type:Patient Education How to access health informa tion online - Detail Indication:Asthma in adult, mild intermittent, with acute exacerbation Start:12-Apr-2016 Instruction Type:Patient Education Patient Instructions Indication:Asthma in adult, mild intermittent, with acute exacerbation Start:12-Apr-2016 Instruction Type:Provider Instructions for Treatment How to access health informa tion online Indication:Dysuria Start:27-Feb-2016 Instruction Type:Patient Education How to access health informa tion online - Detail Indication:Dysuria Start:27-Feb-2016 Instruction Type:Patient Education Patient Instructions Indication:Dysuria Start:27-Feb-2016 Instruction Type:Provider Instructions for Treatment How to access health informa tion online Indication:Well woman exam (Renamed from Encounter for well woman exam) Start:05-Feb-2016 Instruction Type:Patient Education How to access health informa tion online - Detail Indication:Well woman exam (Renamed from Encounter for well woman exam) Start:05-Feb-2016 Instruction Type:Patient Education Patient Instructions Indication:Well woman exam (Renamed from Encounter for well woman exam) Start:05-Feb-2016 Instruction Type:Provider Instructions for Treatment Patient Instructions Indication:Dysthymic disorder Start:10-May-2014 Instruction Type:Provider Instructions for Treatment Patient Instructions Indication:Physical exam, routine Start:03-May-2013 Instruction Type:Provider Instructions for Treatment Patient Instructions Indication:Dysmenorrhea Start:22-Jan-2013 Instruction Type:Provider Instructions for Treatment Patient Instructions Indication:SHORTNESS OF BREATH Start:27-Apr-2012 Instruction Type:Provider Instructions for Treatment Patient Instructions Indication:Epigastric pain Start:21-Feb-2012 Instruction Type:Provider Instructions for Treatment Patient Instructions Indication:Epigastric pain Start:17-Jan-2012 Instruction Type:Provider Instructions for Treatment Name Dates Details How to access health informa tion online Indication:Nonsmoker Start:30-Sep-2018 Instruction Type:Patient Education How to access health informa tion online - Detail Indication:Nonsmoker Start:30-Sep-2018 Instruction Type:Patient Education Patient Instructions Indication:Nonsmoker Start:30-Sep-2018 Instruction Type:Provider Instructions for Treatment How to access health informa tion online Indication:Sore throat Start:03-Aug-2018 Instruction Type:Patient Education How to access health informa tion online - Detail Indication:Sore throat Start:03-Aug-2018 Instruction Type:Patient Education Patient Instructions Indication:Sore throat Start:03-Aug-2018 Instruction Type:Provider Instructions for Treatment How to access health informa tion online Indication:BMI 38.0-38.9,adult Start:20-May-2018 Instruction Type:Patient Education How to access health informa tion online - Detail Indication:BMI 38.0-38.9,adult Start:20-May-2018 Instruction Type:Patient Education Patient Instructions Indication:BMI 38.0-38.9,adult Start:20-May-2018 Instruction Type:Provider Instructions for Treatment How to access health informa tion online Indication:Upper respiratory infection, acute Start:09-Mar-2018 Instruction Type:Patient Education How to access health informa tion online - Detail Indication:Upper respiratory infection, acute Start:09-Mar-2018 Instruction Type:Patient Education Patient Instructions Indication:Upper respiratory infection, acute Start:09-Mar-2018 Instruction Type:Provider Instructions for Treatment How to access health informa tion online Indication:Constipation Start:10-Nov-2017 Instruction Type:Patient Education How to access health informa tion online - Detail Indication:Constipation Start:10-Nov-2017 Instruction Type:Patient Education Patient Instructions Indication:Constipation Start:10-Nov-2017 Instruction Type:Provider Instructions for Treatment How to access health informa tion online Indication:BMI 36.0-36.9,adult Start:16-Jun-2017 Instruction Type:Patient Education How to access health informa tion online - Detail Indication:BMI 36.0-36.9,adult Start:16-Jun-2017 Instruction Type:Patient Education Patient Instructions Indication:BMI 36.0-36.9,adult Start:16-Jun-2017 Instruction Type:Provider Instructions for Treatment How to access health informa tion online Indication:Fever Start:04-Jun-2017 Instruction Type:Patient Education How to access health informa tion online - Detail Indication:Fever Start:04-Jun-2017 Instruction Type:Patient Education Patient Instructions Indication:Fever Start:04-Jun-2017 Instruction Type:Provider Instructions for Treatment How to access health informa tion online Indication:Asthma in adult, mild intermittent, with acute exacerbation Start:06-May-2017 Instruction Type:Patient Education How to access health informa tion online - Detail Indication:Asthma in adult, mild intermittent, with acute exacerbation Start:06-May-2017 Instruction Type:Patient Education Patient Instructions Indication:Asthma in adult, mild intermittent, with acute exacerbation Start:06-May-2017 Instruction Type:Provider Instructions for Treatment How to access health informa tion online Indication:BMI 36.0-36.9,adult Start:26-Mar-2017 Instruction Type:Patient Education How to access health informa tion online - Detail Indication:BMI 36.0-36.9,adult Start:26-Mar-2017 Instruction Type:Patient Education Patient Instructions Indication:BMI 36.0-36.9,adult Start:26-Mar-2017 Instruction Type:Provider Instructions for Treatment How to access health informa tion online Indication:BMI 36.0-36.9,adult Start:19-Mar-2017 Instruction Type:Patient Education How to access health informa tion online - Detail Indication:BMI 36.0-36.9,adult Start:19-Mar-2017 Instruction Type:Patient Education Patient Instructions Indication:BMI 36.0-36.9,adult Start:19-Mar-2017 Instruction Type:Provider Instructions for Treatment How to access health informa tion online Indication:Abnormal weight gain Start:19-Feb-2017 Instruction Type:Patient Education How to access health informa tion online - Detail Indication:Abnormal weight gain Start:19-Feb-2017 Instruction Type:Patient Education Patient Instructions Indication:Abnormal weight gain Start:19-Feb-2017 Instruction Type:Provider Instructions for Treatment How to access health informa tion online Indication:Abnormal weight gain Start:05-Feb-2017 Instruction Type:Patient Education How to access health informa tion online - Detail Indication:Abnormal weight gain Start:05-Feb-2017 Instruction Type:Patient Education Patient Instructions Indication:Abnormal weight gain Start:05-Feb-2017 Instruction Type:Provider Instructions for Treatment How to access health informa tion online Indication:Abnormal weight gain Start:22-Jan-2017 Instruction Type:Patient Education How to access health informa tion online - Detail Indication:Abnormal weight gain Start:22-Jan-2017 Instruction Type:Patient Education Patient Instructions Indication:Abnormal weight gain Start:22-Jan-2017 Instruction Type:Provider Instructions for Treatment How to access health informa tion online Indication:Nonsmoker Start:03-Jan-2017 Instruction Type:Patient Education How to access health informa tion online - Detail Indication:Nonsmoker Start:03-Jan-2017 Instruction Type:Patient Education Patient Instructions Indication:Nonsmoker Start:03-Jan-2017 Instruction Type:Provider Instructions for Treatment How to access health informa tion online Indication:Pelvic pain in female Start:03-Dec-2016 Instruction Type:Patient Education How to access health informa tion online - Detail Indication:Pelvic pain in female Start:03-Dec-2016 Instruction Type:Patient Education Patient Instructions Indication:Pelvic pain in female Start:03-Dec-2016 Instruction Type:Provider Instructions for Treatment How to access health informa tion online Indication:BMI 36.0-36.9,adult Start:18-Nov-2016 Instruction Type:Patient Education How to access health informa tion online - Detail Indication:BMI 36.0-36.9,adult Start:18-Nov-2016 Instruction Type:Patient Education Patient Instructions Indication:BMI 36.0-36.9,adult Start:18-Nov-2016 Instruction Type:Provider Instructions for Treatment How to access health informa tion online Indication:Asthma in adult, mild intermittent, with acute exacerbation Start:12-Apr-2016 Instruction Type:Patient Education How to access health informa tion online - Detail Indication:Asthma in adult, mild intermittent, with acute exacerbation Start:12-Apr-2016 Instruction Type:Patient Education Patient Instructions Indication:Asthma in adult, mild intermittent, with acute exacerbation Start:12-Apr-2016 Instruction Type:Provider Instructions for Treatment How to access health informa tion online Indication:Dysuria Start:27-Feb-2016 Instruction Type:Patient Education How to access health informa tion online - Detail Indication:Dysuria Start:27-Feb-2016 Instruction Type:Patient Education Patient Instructions Indication:Dysuria Start:27-Feb-2016 Instruction Type:Provider Instructions for Treatment How to access health informa tion online Indication:Well woman exam (Renamed from Encounter for well woman exam) Start:05-Feb-2016 Instruction Type:Patient Education How to access health informa tion online - Detail Indication:Well woman exam (Renamed from Encounter for well woman exam) Start:05-Feb-2016 Instruction Type:Patient Education Patient Instructions Indication:Well woman exam (Renamed from Encounter for well woman exam) Start:05-Feb-2016 Instruction Type:Provider Instructions for Treatment Patient Instructions Indication:Dysthymic disorder Start:10-May-2014 Instruction Type:Provider Instructions for Treatment Patient Instructions Indication:Physical exam, routine Start:03-May-2013 Instruction Type:Provider Instructions for Treatment Patient Instructions Indication:Dysmenorrhea Start:22-Jan-2013 Instruction Type:Provider Instructions for Treatment Patient Instructions Indication:SHORTNESS OF BREATH Start:27-Apr-2012 Instruction Type:Provider Instructions for Treatment Patient Instructions Indication:Epigastric pain Start:21-Feb-2012 Instruction Type:Provider Instructions for Treatment Patient Instructions Indication:Epigastric pain Start:17-Jan-2012 Instruction Type:Provider Instructions for Treatment Name Dates Details How to access health informa tion online Indication:Nonsmoker Start:30-Sep-2018 Instruction Type:Patient Education How to access health informa tion online - Detail Indication:Nonsmoker Start:30-Sep-2018 Instruction Type:Patient Education Patient Instructions Indication:Nonsmoker Start:30-Sep-2018 Instruction Type:Provider Instructions for Treatment How to access health informa tion online Indication:Sore throat Start:03-Aug-2018 Instruction Type:Patient Education How to access health informa tion online - Detail Indication:Sore throat Start:03-Aug-2018 Instruction Type:Patient Education Patient Instructions Indication:Sore throat Start:03-Aug-2018 Instruction Type:Provider Instructions for Treatment How to access health informa tion online Indication:BMI 38.0-38.9,adult Start:20-May-2018 Instruction Type:Patient Education How to access health informa tion online - Detail Indication:BMI 38.0-38.9,adult Start:20-May-2018 Instruction Type:Patient Education Patient Instructions Indication:BMI 38.0-38.9,adult Start:20-May-2018 Instruction Type:Provider Instructions for Treatment How to access health informa tion online Indication:Upper respiratory infection, acute Start:09-Mar-2018 Instruction Type:Patient Education How to access health informa tion online - Detail Indication:Upper respiratory infection, acute Start:09-Mar-2018 Instruction Type:Patient Education Patient Instructions Indication:Upper respiratory infection, acute Start:09-Mar-2018 Instruction Type:Provider Instructions for Treatment How to access health informa tion online Indication:Constipation Start:10-Nov-2017 Instruction Type:Patient Education How to access health informa tion online - Detail Indication:Constipation Start:10-Nov-2017 Instruction Type:Patient Education Patient Instructions Indication:Constipation Start:10-Nov-2017 Instruction Type:Provider Instructions for Treatment How to access health informa tion online Indication:BMI 36.0-36.9,adult Start:16-Jun-2017 Instruction Type:Patient Education How to access health informa tion online - Detail Indication:BMI 36.0-36.9,adult Start:16-Jun-2017 Instruction Type:Patient Education Patient Instructions Indication:BMI 36.0-36.9,adult Start:16-Jun-2017 Instruction Type:Provider Instructions for Treatment How to access health informa tion online Indication:Fever Start:04-Jun-2017 Instruction Type:Patient Education How to access health informa tion online - Detail Indication:Fever Start:04-Jun-2017 Instruction Type:Patient Education Patient Instructions Indication:Fever Start:04-Jun-2017 Instruction Type:Provider Instructions for Treatment How to access health informa tion online Indication:Asthma in adult, mild intermittent, with acute exacerbation Start:06-May-2017 Instruction Type:Patient Education How to access health informa tion online - Detail Indication:Asthma in adult, mild intermittent, with acute exacerbation Start:06-May-2017 Instruction Type:Patient Education Patient Instructions Indication:Asthma in adult, mild intermittent, with acute exacerbation Start:06-May-2017 Instruction Type:Provider Instructions for Treatment How to access health informa tion online Indication:BMI 36.0-36.9,adult Start:26-Mar-2017 Instruction Type:Patient Education How to access health informa tion online - Detail Indication:BMI 36.0-36.9,adult Start:26-Mar-2017 Instruction Type:Patient Education Patient Instructions Indication:BMI 36.0-36.9,adult Start:26-Mar-2017 Instruction Type:Provider Instructions for Treatment How to access health informa tion online Indication:BMI 36.0-36.9,adult Start:19-Mar-2017 Instruction Type:Patient Education How to access health informa tion online - Detail Indication:BMI 36.0-36.9,adult Start:19-Mar-2017 Instruction Type:Patient Education Patient Instructions Indication:BMI 36.0-36.9,adult Start:19-Mar-2017 Instruction Type:Provider Instructions for Treatment How to access health informa tion online Indication:Abnormal weight gain Start:19-Feb-2017 Instruction Type:Patient Education How to access health informa tion online - Detail Indication:Abnormal weight gain Start:19-Feb-2017 Instruction Type:Patient Education Patient Instructions Indication:Abnormal weight gain Start:19-Feb-2017 Instruction Type:Provider Instructions for Treatment How to access health informa tion online Indication:Abnormal weight gain Start:05-Feb-2017 Instruction Type:Patient Education How to access health informa tion online - Detail Indication:Abnormal weight gain Start:05-Feb-2017 Instruction Type:Patient Education Patient Instructions Indication:Abnormal weight gain Start:05-Feb-2017 Instruction Type:Provider Instructions for Treatment How to access health informa tion online Indication:Abnormal weight gain Start:22-Jan-2017 Instruction Type:Patient Education How to access health informa tion online - Detail Indication:Abnormal weight gain Start:22-Jan-2017 Instruction Type:Patient Education Patient Instructions Indication:Abnormal weight gain Start:22-Jan-2017 Instruction Type:Provider Instructions for Treatment How to access health informa tion online Indication:Nonsmoker Start:03-Jan-2017 Instruction Type:Patient Education How to access health informa tion online - Detail Indication:Nonsmoker Start:03-Jan-2017 Instruction Type:Patient Education Patient Instructions Indication:Nonsmoker Start:03-Jan-2017 Instruction Type:Provider Instructions for Treatment How to access health informa tion online Indication:Pelvic pain in female Start:03-Dec-2016 Instruction Type:Patient Education How to access health informa tion online - Detail Indication:Pelvic pain in female Start:03-Dec-2016 Instruction Type:Patient Education Patient Instructions Indication:Pelvic pain in female Start:03-Dec-2016 Instruction Type:Provider Instructions for Treatment How to access health informa tion online Indication:BMI 36.0-36.9,adult Start:18-Nov-2016 Instruction Type:Patient Education How to access health informa tion online - Detail Indication:BMI 36.0-36.9,adult Start:18-Nov-2016 Instruction Type:Patient Education Patient Instructions Indication:BMI 36.0-36.9,adult Start:18-Nov-2016 Instruction Type:Provider Instructions for Treatment How to access health informa tion online Indication:Asthma in adult, mild intermittent, with acute exacerbation Start:12-Apr-2016 Instruction Type:Patient Education How to access health informa tion online - Detail Indication:Asthma in adult, mild intermittent, with acute exacerbation Start:12-Apr-2016 Instruction Type:Patient Education Patient Instructions Indication:Asthma in adult, mild intermittent, with acute exacerbation Start:12-Apr-2016 Instruction Type:Provider Instructions for Treatment How to access health informa tion online Indication:Dysuria Start:27-Feb-2016 Instruction Type:Patient Education How to access health informa tion online - Detail Indication:Dysuria Start:27-Feb-2016 Instruction Type:Patient Education Patient Instructions Indication:Dysuria Start:27-Feb-2016 Instruction Type:Provider Instructions for Treatment How to access health informa tion online Indication:Well woman exam (Renamed from Encounter for well woman exam) Start:05-Feb-2016 Instruction Type:Patient Education How to access health informa tion online - Detail Indication:Well woman exam (Renamed from Encounter for well woman exam) Start:05-Feb-2016 Instruction Type:Patient Education Patient Instructions Indication:Well woman exam (Renamed from Encounter for well woman exam) Start:05-Feb-2016 Instruction Type:Provider Instructions for Treatment Patient Instructions Indication:Dysthymic disorder Start:10-May-2014 Instruction Type:Provider Instructions for Treatment Patient Instructions Indication:Physical exam, routine Start:03-May-2013 Instruction Type:Provider Instructions for Treatment Patient Instructions Indication:Dysmenorrhea Start:22-Jan-2013 Instruction Type:Provider Instructions for Treatment Patient Instructions Indication:SHORTNESS OF BREATH Start:27-Apr-2012 Instruction Type:Provider Instructions for Treatment Patient Instructions Indication:Epigastric pain Start:21-Feb-2012 Instruction Type:Provider Instructions for Treatment Patient Instructions Indication:Epigastric pain Start:17-Jan-2012 Instruction Type:Provider Instructions for Treatment Name Dates Details How to access health informa tion online Indication:Nonsmoker Start:30-Sep-2018 Instruction Type:Patient Education How to access health informa tion online - Detail Indication:Nonsmoker Start:30-Sep-2018 Instruction Type:Patient Education Patient Instructions Indication:Nonsmoker Start:30-Sep-2018 Instruction Type:Provider Instructions for Treatment How to access health informa tion online Indication:Sore throat Start:03-Aug-2018 Instruction Type:Patient Education How to access health informa tion online - Detail Indication:Sore throat Start:03-Aug-2018 Instruction Type:Patient Education Patient Instructions Indication:Sore throat Start:03-Aug-2018 Instruction Type:Provider Instructions for Treatment How to access health informa tion online Indication:BMI 38.0-38.9,adult Start:20-May-2018 Instruction Type:Patient Education How to access health informa tion online - Detail Indication:BMI 38.0-38.9,adult Start:20-May-2018 Instruction Type:Patient Education Patient Instructions Indication:BMI 38.0-38.9,adult Start:20-May-2018 Instruction Type:Provider Instructions for Treatment How to access health informa tion online Indication:Upper respiratory infection, acute Start:09-Mar-2018 Instruction Type:Patient Education How to access health informa tion online - Detail Indication:Upper respiratory infection, acute Start:09-Mar-2018 Instruction Type:Patient Education Patient Instructions Indication:Upper respiratory infection, acute Start:09-Mar-2018 Instruction Type:Provider Instructions for Treatment How to access health informa tion online Indication:Constipation Start:10-Nov-2017 Instruction Type:Patient Education How to access health informa tion online - Detail Indication:Constipation Start:10-Nov-2017 Instruction Type:Patient Education Patient Instructions Indication:Constipation Start:10-Nov-2017 Instruction Type:Provider Instructions for Treatment How to access health informa tion online Indication:BMI 36.0-36.9,adult Start:16-Jun-2017 Instruction Type:Patient Education How to access health informa tion online - Detail Indication:BMI 36.0-36.9,adult Start:16-Jun-2017 Instruction Type:Patient Education Patient Instructions Indication:BMI 36.0-36.9,adult Start:16-Jun-2017 Instruction Type:Provider Instructions for Treatment How to access health informa tion online Indication:Fever Start:04-Jun-2017 Instruction Type:Patient Education How to access health informa tion online - Detail Indication:Fever Start:04-Jun-2017 Instruction Type:Patient Education Patient Instructions Indication:Fever Start:04-Jun-2017 Instruction Type:Provider Instructions for Treatment How to access health informa tion online Indication:Asthma in adult, mild intermittent, with acute exacerbation Start:06-May-2017 Instruction Type:Patient Education How to access health informa tion online - Detail Indication:Asthma in adult, mild intermittent, with acute exacerbation Start:06-May-2017 Instruction Type:Patient Education Patient Instructions Indication:Asthma in adult, mild intermittent, with acute exacerbation Start:06-May-2017 Instruction Type:Provider Instructions for Treatment How to access health informa tion online Indication:BMI 36.0-36.9,adult Start:26-Mar-2017 Instruction Type:Patient Education How to access health informa tion online - Detail Indication:BMI 36.0-36.9,adult Start:26-Mar-2017 Instruction Type:Patient Education Patient Instructions Indication:BMI 36.0-36.9,adult Start:26-Mar-2017 Instruction Type:Provider Instructions for Treatment How to access health informa tion online Indication:BMI 36.0-36.9,adult Start:19-Mar-2017 Instruction Type:Patient Education How to access health informa tion online - Detail Indication:BMI 36.0-36.9,adult Start:19-Mar-2017 Instruction Type:Patient Education Patient Instructions Indication:BMI 36.0-36.9,adult Start:19-Mar-2017 Instruction Type:Provider Instructions for Treatment How to access health informa tion online Indication:Abnormal weight gain Start:19-Feb-2017 Instruction Type:Patient Education How to access health informa tion online - Detail Indication:Abnormal weight gain Start:19-Feb-2017 Instruction Type:Patient Education Patient Instructions Indication:Abnormal weight gain Start:19-Feb-2017 Instruction Type:Provider Instructions for Treatment How to access health informa tion online Indication:Abnormal weight gain Start:05-Feb-2017 Instruction Type:Patient Education How to access health informa tion online - Detail Indication:Abnormal weight gain Start:05-Feb-2017 Instruction Type:Patient Education Patient Instructions Indication:Abnormal weight gain Start:05-Feb-2017 Instruction Type:Provider Instructions for Treatment How to access health informa tion online Indication:Abnormal weight gain Start:22-Jan-2017 Instruction Type:Patient Education How to access health informa tion online - Detail Indication:Abnormal weight gain Start:22-Jan-2017 Instruction Type:Patient Education Patient Instructions Indication:Abnormal weight gain Start:22-Jan-2017 Instruction Type:Provider Instructions for Treatment How to access health informa tion online Indication:Nonsmoker Start:03-Jan-2017 Instruction Type:Patient Education How to access health informa tion online - Detail Indication:Nonsmoker Start:03-Jan-2017 Instruction Type:Patient Education Patient Instructions Indication:Nonsmoker Start:03-Jan-2017 Instruction Type:Provider Instructions for Treatment How to access health informa tion online Indication:Pelvic pain in female Start:03-Dec-2016 Instruction Type:Patient Education How to access health informa tion online - Detail Indication:Pelvic pain in female Start:03-Dec-2016 Instruction Type:Patient Education Patient Instructions Indication:Pelvic pain in female Start:03-Dec-2016 Instruction Type:Provider Instructions for Treatment How to access health informa tion online Indication:BMI 36.0-36.9,adult Start:18-Nov-2016 Instruction Type:Patient Education How to access health informa tion online - Detail Indication:BMI 36.0-36.9,adult Start:18-Nov-2016 Instruction Type:Patient Education Patient Instructions Indication:BMI 36.0-36.9,adult Start:18-Nov-2016 Instruction Type:Provider Instructions for Treatment How to access health informa tion online Indication:Asthma in adult, mild intermittent, with acute exacerbation Start:12-Apr-2016 Instruction Type:Patient Education How to access health informa tion online - Detail Indication:Asthma in adult, mild intermittent, with acute exacerbation Start:12-Apr-2016 Instruction Type:Patient Education Patient Instructions Indication:Asthma in adult, mild intermittent, with acute exacerbation Start:12-Apr-2016 Instruction Type:Provider Instructions for Treatment How to access health informa tion online Indication:Dysuria Start:27-Feb-2016 Instruction Type:Patient Education How to access health informa tion online - Detail Indication:Dysuria Start:27-Feb-2016 Instruction Type:Patient Education Patient Instructions Indication:Dysuria Start:27-Feb-2016 Instruction Type:Provider Instructions for Treatment How to access health informa tion online Indication:Well woman exam (Renamed from Encounter for well woman exam) Start:05-Feb-2016 Instruction Type:Patient Education How to access health informa tion online - Detail Indication:Well woman exam (Renamed from Encounter for well woman exam) Start:05-Feb-2016 Instruction Type:Patient Education Patient Instructions Indication:Well woman exam (Renamed from Encounter for well woman exam) Start:05-Feb-2016 Instruction Type:Provider Instructions for Treatment Patient Instructions Indication:Dysthymic disorder Start:10-May-2014 Instruction Type:Provider Instructions for Treatment Patient Instructions Indication:Physical exam, routine Start:03-May-2013 Instruction Type:Provider Instructions for Treatment Patient Instructions Indication:Dysmenorrhea Start:22-Jan-2013 Instruction Type:Provider Instructions for Treatment Patient Instructions Indication:SHORTNESS OF BREATH Start:27-Apr-2012 Instruction Type:Provider Instructions for Treatment Patient Instructions Indication:Epigastric pain Start:21-Feb-2012 Instruction Type:Provider Instructions for Treatment Patient Instructions Indication:Epigastric pain Start:17-Jan-2012 Instruction Type:Provider Instructions for Treatment Name Dates Details Patient Instructions Indication:Anxiety and depression Start:18-Jul-2019 Instruction Type:Provider Instructions for Treatment How to access health informa tion online Indication:Myalgia Start:09-Jun-2019 Instruction Type:Patient Education How to access health informa tion online - Detail Indication:Myalgia Start:09-Jun-2019 Instruction Type:Patient Education Patient Instructions Indication:Myalgia Start:09-Jun-2019 Instruction Type:Provider Instructions for Treatment How to access health informa tion online Indication:Nonsmoker Start:30-Sep-2018 Instruction Type:Patient Education How to access health informa tion online - Detail Indication:Nonsmoker Start:30-Sep-2018 Instruction Type:Patient Education Patient Instructions Indication:Nonsmoker Start:30-Sep-2018 Instruction Type:Provider Instructions for Treatment How to access health informa tion online Indication:Sore throat Start:03-Aug-2018 Instruction Type:Patient Education How to access health informa tion online - Detail Indication:Sore throat Start:03-Aug-2018 Instruction Type:Patient Education Patient Instructions Indication:Sore throat Start:03-Aug-2018 Instruction Type:Provider Instructions for Treatment How to access health informa tion online Indication:BMI 38.0-38.9,adult Start:20-May-2018 Instruction Type:Patient Education How to access health informa tion online - Detail Indication:BMI 38.0-38.9,adult Start:20-May-2018 Instruction Type:Patient Education Patient Instructions Indication:BMI 38.0-38.9,adult Start:20-May-2018 Instruction Type:Provider Instructions for Treatment How to access health informa tion online Indication:Upper respiratory infection, acute Start:09-Mar-2018 Instruction Type:Patient Education How to access health informa tion online - Detail Indication:Upper respiratory infection, acute Start:09-Mar-2018 Instruction Type:Patient Education Patient Instructions Indication:Upper respiratory infection, acute Start:09-Mar-2018 Instruction Type:Provider Instructions for Treatment How to access health informa tion online Indication:Constipation Start:10-Nov-2017 Instruction Type:Patient Education How to access health informa tion online - Detail Indication:Constipation Start:10-Nov-2017 Instruction Type:Patient Education Patient Instructions Indication:Constipation Start:10-Nov-2017 Instruction Type:Provider Instructions for Treatment How to access health informa tion online Indication:BMI 36.0-36.9,adult Start:16-Jun-2017 Instruction Type:Patient Education How to access health informa tion online - Detail Indication:BMI 36.0-36.9,adult Start:16-Jun-2017 Instruction Type:Patient Education Patient Instructions Indication:BMI 36.0-36.9,adult Start:16-Jun-2017 Instruction Type:Provider Instructions for Treatment How to access health informa tion online Indication:Fever Start:04-Jun-2017 Instruction Type:Patient Education How to access health informa tion online - Detail Indication:Fever Start:04-Jun-2017 Instruction Type:Patient Education Patient Instructions Indication:Fever Start:04-Jun-2017 Instruction Type:Provider Instructions for Treatment How to access health informa tion online Indication:Asthma in adult, mild intermittent, with acute exacerbation Start:06-May-2017 Instruction Type:Patient Education How to access health informa tion online - Detail Indication:Asthma in adult, mild intermittent, with acute exacerbation Start:06-May-2017 Instruction Type:Patient Education Patient Instructions Indication:Asthma in adult, mild intermittent, with acute exacerbation Start:06-May-2017 Instruction Type:Provider Instructions for Treatment How to access health informa tion online Indication:BMI 36.0-36.9,adult Start:26-Mar-2017 Instruction Type:Patient Education How to access health informa tion online - Detail Indication:BMI 36.0-36.9,adult Start:26-Mar-2017 Instruction Type:Patient Education Patient Instructions Indication:BMI 36.0-36.9,adult Start:26-Mar-2017 Instruction Type:Provider Instructions for Treatment How to access health informa tion online Indication:BMI 36.0-36.9,adult Start:19-Mar-2017 Instruction Type:Patient Education How to access health informa tion online - Detail Indication:BMI 36.0-36.9,adult Start:19-Mar-2017 Instruction Type:Patient Education Patient Instructions Indication:BMI 36.0-36.9,adult Start:19-Mar-2017 Instruction Type:Provider Instructions for Treatment How to access health informa tion online Indication:Abnormal weight gain Start:19-Feb-2017 Instruction Type:Patient Education How to access health informa tion online - Detail Indication:Abnormal weight gain Start:19-Feb-2017 Instruction Type:Patient Education Patient Instructions Indication:Abnormal weight gain Start:19-Feb-2017 Instruction Type:Provider Instructions for Treatment How to access health informa tion online Indication:Abnormal weight gain Start:05-Feb-2017 Instruction Type:Patient Education How to access health informa tion online - Detail Indication:Abnormal weight gain Start:05-Feb-2017 Instruction Type:Patient Education Patient Instructions Indication:Abnormal weight gain Start:05-Feb-2017 Instruction Type:Provider Instructions for Treatment How to access health informa tion online Indication:Abnormal weight gain Start:22-Jan-2017 Instruction Type:Patient Education How to access health informa tion online - Detail Indication:Abnormal weight gain Start:22-Jan-2017 Instruction Type:Patient Education Patient Instructions Indication:Abnormal weight gain Start:22-Jan-2017 Instruction Type:Provider Instructions for Treatment How to access health informa tion online Indication:Nonsmoker Start:03-Jan-2017 Instruction Type:Patient Education How to access health informa tion online - Detail Indication:Nonsmoker Start:03-Jan-2017 Instruction Type:Patient Education Patient Instructions Indication:Nonsmoker Start:03-Jan-2017 Instruction Type:Provider Instructions for Treatment How to access health informa tion online Indication:Pelvic pain in female Start:03-Dec-2016 Instruction Type:Patient Education How to access health informa tion online - Detail Indication:Pelvic pain in female Start:03-Dec-2016 Instruction Type:Patient Education Patient Instructions Indication:Pelvic pain in female Start:03-Dec-2016 Instruction Type:Provider Instructions for Treatment How to access health informa tion online Indication:BMI 36.0-36.9,adult Start:18-Nov-2016 Instruction Type:Patient Education How to access health informa tion online - Detail Indication:BMI 36.0-36.9,adult Start:18-Nov-2016 Instruction Type:Patient Education Patient Instructions Indication:BMI 36.0-36.9,adult Start:18-Nov-2016 Instruction Type:Provider Instructions for Treatment How to access health informa tion online Indication:Asthma in adult, mild intermittent, with acute exacerbation Start:12-Apr-2016 Instruction Type:Patient Education How to access health informa tion online - Detail Indication:Asthma in adult, mild intermittent, with acute exacerbation Start:12-Apr-2016 Instruction Type:Patient Education Patient Instructions Indication:Asthma in adult, mild intermittent, with acute exacerbation Start:12-Apr-2016 Instruction Type:Provider Instructions for Treatment How to access health informa tion online Indication:Dysuria Start:27-Feb-2016 Instruction Type:Patient Education How to access health informa tion online - Detail Indication:Dysuria Start:27-Feb-2016 Instruction Type:Patient Education Patient Instructions Indication:Dysuria Start:27-Feb-2016 Instruction Type:Provider Instructions for Treatment How to access health informa tion online Indication:Well woman exam (Renamed from Encounter for well woman exam) Start:05-Feb-2016 Instruction Type:Patient Education How to access health informa tion online - Detail Indication:Well woman exam (Renamed from Encounter for well woman exam) Start:05-Feb-2016 Instruction Type:Patient Education Patient Instructions Indication:Well woman exam (Renamed from Encounter for well woman exam) Start:05-Feb-2016 Instruction Type:Provider Instructions for Treatment Patient Instructions Indication:Dysthymic disorder Start:10-May-2014 Instruction Type:Provider Instructions for Treatment Patient Instructions Indication:Physical exam, routine Start:03-May-2013 Instruction Type:Provider Instructions for Treatment Patient Instructions Indication:Dysmenorrhea Start:22-Jan-2013 Instruction Type:Provider Instructions for Treatment Patient Instructions Indication:SHORTNESS OF BREATH Start:27-Apr-2012 Instruction Type:Provider Instructions for Treatment Patient Instructions Indication:Epigastric pain Start:21-Feb-2012 Instruction Type:Provider Instructions for Treatment Patient Instructions Indication:Epigastric pain Start:17-Jan-2012 Instruction Type:Provider Instructions for Treatment Name Dates Details Patient Instructions Indication:Anxiety and depression Start:18-Jul-2019 Instruction Type:Provider Instructions for Treatment How to access health informa tion online Indication:Myalgia Start:09-Jun-2019 Instruction Type:Patient Education How to access health informa tion online - Detail Indication:Myalgia Start:09-Jun-2019 Instruction Type:Patient Education Patient Instructions Indication:Myalgia Start:09-Jun-2019 Instruction Type:Provider Instructions for Treatment How to access health informa tion online Indication:Nonsmoker Start:30-Sep-2018 Instruction Type:Patient Education How to access health informa tion online - Detail Indication:Nonsmoker Start:30-Sep-2018 Instruction Type:Patient Education Patient Instructions Indication:Nonsmoker Start:30-Sep-2018 Instruction Type:Provider Instructions for Treatment How to access health informa tion online Indication:Sore throat Start:03-Aug-2018 Instruction Type:Patient Education How to access health informa tion online - Detail Indication:Sore throat Start:03-Aug-2018 Instruction Type:Patient Education Patient Instructions Indication:Sore throat Start:03-Aug-2018 Instruction Type:Provider Instructions for Treatment How to access health informa tion online Indication:BMI 38.0-38.9,adult Start:20-May-2018 Instruction Type:Patient Education How to access health informa tion online - Detail Indication:BMI 38.0-38.9,adult Start:20-May-2018 Instruction Type:Patient Education Patient Instructions Indication:BMI 38.0-38.9,adult Start:20-May-2018 Instruction Type:Provider Instructions for Treatment How to access health informa tion online Indication:Upper respiratory infection, acute Start:09-Mar-2018 Instruction Type:Patient Education How to access health informa tion online - Detail Indication:Upper respiratory infection, acute Start:09-Mar-2018 Instruction Type:Patient Education Patient Instructions Indication:Upper respiratory infection, acute Start:09-Mar-2018 Instruction Type:Provider Instructions for Treatment How to access health informa tion online Indication:Constipation Start:10-Nov-2017 Instruction Type:Patient Education How to access health informa tion online - Detail Indication:Constipation Start:10-Nov-2017 Instruction Type:Patient Education Patient Instructions Indication:Constipation Start:10-Nov-2017 Instruction Type:Provider Instructions for Treatment How to access health informa tion online Indication:BMI 36.0-36.9,adult Start:16-Jun-2017 Instruction Type:Patient Education How to access health informa tion online - Detail Indication:BMI 36.0-36.9,adult Start:16-Jun-2017 Instruction Type:Patient Education Patient Instructions Indication:BMI 36.0-36.9,adult Start:16-Jun-2017 Instruction Type:Provider Instructions for Treatment How to access health informa tion online Indication:Fever Start:04-Jun-2017 Instruction Type:Patient Education How to access health informa tion online - Detail Indication:Fever Start:04-Jun-2017 Instruction Type:Patient Education Patient Instructions Indication:Fever Start:04-Jun-2017 Instruction Type:Provider Instructions for Treatment How to access health informa tion online Indication:Asthma in adult, mild intermittent, with acute exacerbation Start:06-May-2017 Instruction Type:Patient Education How to access health informa tion online - Detail Indication:Asthma in adult, mild intermittent, with acute exacerbation Start:06-May-2017 Instruction Type:Patient Education Patient Instructions Indication:Asthma in adult, mild intermittent, with acute exacerbation Start:06-May-2017 Instruction Type:Provider Instructions for Treatment How to access health informa tion online Indication:BMI 36.0-36.9,adult Start:26-Mar-2017 Instruction Type:Patient Education How to access health informa tion online - Detail Indication:BMI 36.0-36.9,adult Start:26-Mar-2017 Instruction Type:Patient Education Patient Instructions Indication:BMI 36.0-36.9,adult Start:26-Mar-2017 Instruction Type:Provider Instructions for Treatment How to access health informa tion online Indication:BMI 36.0-36.9,adult Start:19-Mar-2017 Instruction Type:Patient Education How to access health informa tion online - Detail Indication:BMI 36.0-36.9,adult Start:19-Mar-2017 Instruction Type:Patient Education Patient Instructions Indication:BMI 36.0-36.9,adult Start:19-Mar-2017 Instruction Type:Provider Instructions for Treatment How to access health informa tion online Indication:Abnormal weight gain Start:19-Feb-2017 Instruction Type:Patient Education How to access health informa tion online - Detail Indication:Abnormal weight gain Start:19-Feb-2017 Instruction Type:Patient Education Patient Instructions Indication:Abnormal weight gain Start:19-Feb-2017 Instruction Type:Provider Instructions for Treatment How to access health informa tion online Indication:Abnormal weight gain Start:05-Feb-2017 Instruction Type:Patient Education How to access health informa tion online - Detail Indication:Abnormal weight gain Start:05-Feb-2017 Instruction Type:Patient Education Patient Instructions Indication:Abnormal weight gain Start:05-Feb-2017 Instruction Type:Provider Instructions for Treatment How to access health informa tion online Indication:Abnormal weight gain Start:22-Jan-2017 Instruction Type:Patient Education How to access health informa tion online - Detail Indication:Abnormal weight gain Start:22-Jan-2017 Instruction Type:Patient Education Patient Instructions Indication:Abnormal weight gain Start:22-Jan-2017 Instruction Type:Provider Instructions for Treatment How to access health informa tion online Indication:Nonsmoker Start:03-Jan-2017 Instruction Type:Patient Education How to access health informa tion online - Detail Indication:Nonsmoker Start:03-Jan-2017 Instruction Type:Patient Education Patient Instructions Indication:Nonsmoker Start:03-Jan-2017 Instruction Type:Provider Instructions for Treatment How to access health informa tion online Indication:Pelvic pain in female Start:03-Dec-2016 Instruction Type:Patient Education How to access health informa tion online - Detail Indication:Pelvic pain in female Start:03-Dec-2016 Instruction Type:Patient Education Patient Instructions Indication:Pelvic pain in female Start:03-Dec-2016 Instruction Type:Provider Instructions for Treatment How to access health informa tion online Indication:BMI 36.0-36.9,adult Start:18-Nov-2016 Instruction Type:Patient Education How to access health informa tion online - Detail Indication:BMI 36.0-36.9,adult Start:18-Nov-2016 Instruction Type:Patient Education Patient Instructions Indication:BMI 36.0-36.9,adult Start:18-Nov-2016 Instruction Type:Provider Instructions for Treatment How to access health informa tion online Indication:Asthma in adult, mild intermittent, with acute exacerbation Start:12-Apr-2016 Instruction Type:Patient Education How to access health informa tion online - Detail Indication:Asthma in adult, mild intermittent, with acute exacerbation Start:12-Apr-2016 Instruction Type:Patient Education Patient Instructions Indication:Asthma in adult, mild intermittent, with acute exacerbation Start:12-Apr-2016 Instruction Type:Provider Instructions for Treatment How to access health informa tion online Indication:Dysuria Start:27-Feb-2016 Instruction Type:Patient Education How to access health informa tion online - Detail Indication:Dysuria Start:27-Feb-2016 Instruction Type:Patient Education Patient Instructions Indication:Dysuria Start:27-Feb-2016 Instruction Type:Provider Instructions for Treatment How to access health informa tion online Indication:Well woman exam (Renamed from Encounter for well woman exam) Start:05-Feb-2016 Instruction Type:Patient Education How to access health informa tion online - Detail Indication:Well woman exam (Renamed from Encounter for well woman exam) Start:05-Feb-2016 Instruction Type:Patient Education Patient Instructions Indication:Well woman exam (Renamed from Encounter for well woman exam) Start:05-Feb-2016 Instruction Type:Provider Instructions for Treatment Patient Instructions Indication:Dysthymic disorder Start:10-May-2014 Instruction Type:Provider Instructions for Treatment Patient Instructions Indication:Physical exam, routine Start:03-May-2013 Instruction Type:Provider Instructions for Treatment Patient Instructions Indication:Dysmenorrhea Start:22-Jan-2013 Instruction Type:Provider Instructions for Treatment Patient Instructions Indication:SHORTNESS OF BREATH Start:27-Apr-2012 Instruction Type:Provider Instructions for Treatment Patient Instructions Indication:Epigastric pain Start:21-Feb-2012 Instruction Type:Provider Instructions for Treatment Patient Instructions Indication:Epigastric pain Start:17-Jan-2012 Instruction Type:Provider Instructions for Treatment Name Dates Details Patient Instructions Indication:Anxiety and depression Start:18-Jul-2019 Instruction Type:Provider Instructions for Treatment How to access health informa tion online Indication:Myalgia Start:09-Jun-2019 Instruction Type:Patient Education How to access health informa tion online - Detail Indication:Myalgia Start:09-Jun-2019 Instruction Type:Patient Education Patient Instructions Indication:Myalgia Start:09-Jun-2019 Instruction Type:Provider Instructions for Treatment How to access health informa tion online Indication:Nonsmoker Start:30-Sep-2018 Instruction Type:Patient Education How to access health informa tion online - Detail Indication:Nonsmoker Start:30-Sep-2018 Instruction Type:Patient Education Patient Instructions Indication:Nonsmoker Start:30-Sep-2018 Instruction Type:Provider Instructions for Treatment How to access health informa tion online Indication:Sore throat Start:03-Aug-2018 Instruction Type:Patient Education How to access health informa tion online - Detail Indication:Sore throat Start:03-Aug-2018 Instruction Type:Patient Education Patient Instructions Indication:Sore throat Start:03-Aug-2018 Instruction Type:Provider Instructions for Treatment How to access health informa tion online Indication:BMI 38.0-38.9,adult Start:20-May-2018 Instruction Type:Patient Education How to access health informa tion online - Detail Indication:BMI 38.0-38.9,adult Start:20-May-2018 Instruction Type:Patient Education Patient Instructions Indication:BMI 38.0-38.9,adult Start:20-May-2018 Instruction Type:Provider Instructions for Treatment How to access health informa tion online Indication:Upper respiratory infection, acute Start:09-Mar-2018 Instruction Type:Patient Education How to access health informa tion online - Detail Indication:Upper respiratory infection, acute Start:09-Mar-2018 Instruction Type:Patient Education Patient Instructions Indication:Upper respiratory infection, acute Start:09-Mar-2018 Instruction Type:Provider Instructions for Treatment How to access health informa tion online Indication:Constipation Start:10-Nov-2017 Instruction Type:Patient Education How to access health informa tion online - Detail Indication:Constipation Start:10-Nov-2017 Instruction Type:Patient Education Patient Instructions Indication:Constipation Start:10-Nov-2017 Instruction Type:Provider Instructions for Treatment How to access health informa tion online Indication:BMI 36.0-36.9,adult Start:16-Jun-2017 Instruction Type:Patient Education How to access health informa tion online - Detail Indication:BMI 36.0-36.9,adult Start:16-Jun-2017 Instruction Type:Patient Education Patient Instructions Indication:BMI 36.0-36.9,adult Start:16-Jun-2017 Instruction Type:Provider Instructions for Treatment How to access health informa tion online Indication:Fever Start:04-Jun-2017 Instruction Type:Patient Education How to access health informa tion online - Detail Indication:Fever Start:04-Jun-2017 Instruction Type:Patient Education Patient Instructions Indication:Fever Start:04-Jun-2017 Instruction Type:Provider Instructions for Treatment How to access health informa tion online Indication:Asthma in adult, mild intermittent, with acute exacerbation Start:06-May-2017 Instruction Type:Patient Education How to access health informa tion online - Detail Indication:Asthma in adult, mild intermittent, with acute exacerbation Start:06-May-2017 Instruction Type:Patient Education Patient Instructions Indication:Asthma in adult, mild intermittent, with acute exacerbation Start:06-May-2017 Instruction Type:Provider Instructions for Treatment How to access health informa tion online Indication:BMI 36.0-36.9,adult Start:26-Mar-2017 Instruction Type:Patient Education How to access health informa tion online - Detail Indication:BMI 36.0-36.9,adult Start:26-Mar-2017 Instruction Type:Patient Education Patient Instructions Indication:BMI 36.0-36.9,adult Start:26-Mar-2017 Instruction Type:Provider Instructions for Treatment How to access health informa tion online Indication:BMI 36.0-36.9,adult Start:19-Mar-2017 Instruction Type:Patient Education How to access health informa tion online - Detail Indication:BMI 36.0-36.9,adult Start:19-Mar-2017 Instruction Type:Patient Education Patient Instructions Indication:BMI 36.0-36.9,adult Start:19-Mar-2017 Instruction Type:Provider Instructions for Treatment How to access health informa tion online Indication:Abnormal weight gain Start:19-Feb-2017 Instruction Type:Patient Education How to access health informa tion online - Detail Indication:Abnormal weight gain Start:19-Feb-2017 Instruction Type:Patient Education Patient Instructions Indication:Abnormal weight gain Start:19-Feb-2017 Instruction Type:Provider Instructions for Treatment How to access health informa tion online Indication:Abnormal weight gain Start:05-Feb-2017 Instruction Type:Patient Education How to access health informa tion online - Detail Indication:Abnormal weight gain Start:05-Feb-2017 Instruction Type:Patient Education Patient Instructions Indication:Abnormal weight gain Start:05-Feb-2017 Instruction Type:Provider Instructions for Treatment How to access health informa tion online Indication:Abnormal weight gain Start:22-Jan-2017 Instruction Type:Patient Education How to access health informa tion online - Detail Indication:Abnormal weight gain Start:22-Jan-2017 Instruction Type:Patient Education Patient Instructions Indication:Abnormal weight gain Start:22-Jan-2017 Instruction Type:Provider Instructions for Treatment How to access health informa tion online Indication:Nonsmoker Start:03-Jan-2017 Instruction Type:Patient Education How to access health informa tion online - Detail Indication:Nonsmoker Start:03-Jan-2017 Instruction Type:Patient Education Patient Instructions Indication:Nonsmoker Start:03-Jan-2017 Instruction Type:Provider Instructions for Treatment How to access health informa tion online Indication:Pelvic pain in female Start:03-Dec-2016 Instruction Type:Patient Education How to access health informa tion online - Detail Indication:Pelvic pain in female Start:03-Dec-2016 Instruction Type:Patient Education Patient Instructions Indication:Pelvic pain in female Start:03-Dec-2016 Instruction Type:Provider Instructions for Treatment How to access health informa tion online Indication:BMI 36.0-36.9,adult Start:18-Nov-2016 Instruction Type:Patient Education How to access health informa tion online - Detail Indication:BMI 36.0-36.9,adult Start:18-Nov-2016 Instruction Type:Patient Education Patient Instructions Indication:BMI 36.0-36.9,adult Start:18-Nov-2016 Instruction Type:Provider Instructions for Treatment How to access health informa tion online Indication:Asthma in adult, mild intermittent, with acute exacerbation Start:12-Apr-2016 Instruction Type:Patient Education How to access health informa tion online - Detail Indication:Asthma in adult, mild intermittent, with acute exacerbation Start:12-Apr-2016 Instruction Type:Patient Education Patient Instructions Indication:Asthma in adult, mild intermittent, with acute exacerbation Start:12-Apr-2016 Instruction Type:Provider Instructions for Treatment How to access health informa tion online Indication:Dysuria Start:27-Feb-2016 Instruction Type:Patient Education How to access health informa tion online - Detail Indication:Dysuria Start:27-Feb-2016 Instruction Type:Patient Education Patient Instructions Indication:Dysuria Start:27-Feb-2016 Instruction Type:Provider Instructions for Treatment How to access health informa tion online Indication:Well woman exam (Renamed from Encounter for well woman exam) Start:05-Feb-2016 Instruction Type:Patient Education How to access health informa tion online - Detail Indication:Well woman exam (Renamed from Encounter for well woman exam) Start:05-Feb-2016 Instruction Type:Patient Education Patient Instructions Indication:Well woman exam (Renamed from Encounter for well woman exam) Start:05-Feb-2016 Instruction Type:Provider Instructions for Treatment Patient Instructions Indication:Dysthymic disorder Start:10-May-2014 Instruction Type:Provider Instructions for Treatment Patient Instructions Indication:Physical exam, routine Start:03-May-2013 Instruction Type:Provider Instructions for Treatment Patient Instructions Indication:Dysmenorrhea Start:22-Jan-2013 Instruction Type:Provider Instructions for Treatment Patient Instructions Indication:SHORTNESS OF BREATH Start:27-Apr-2012 Instruction Type:Provider Instructions for Treatment Patient Instructions Indication:Epigastric pain Start:21-Feb-2012 Instruction Type:Provider Instructions for Treatment Patient Instructions Indication:Epigastric pain Start:17-Jan-2012 Instruction Type:Provider Instructions for Treatment Name Dates Details Sore throat : How to access health information online Indication:Sore throat Sore throat : How to access health information online - Detail Indication:Sore throat Sore throat : Patient Instru ctions Indication:Sore throat BMI 38.0-38.9,adult : How to access health information online Indication:BMI 38.0-38.9,adult BMI 38.0-38.9,adult : How to access health information online - Detail Indication:BMI 38.0-38.9,adult BMI 38.0-38.9,adult : Patien t Instructions Indication:BMI 38.0-38.9,adult Upper respiratory infection, acute : How to access health information online Indication:Upper respiratory infection, acute Upper respiratory infection, acute : How to access health information online - Detail Indication:Upper respiratory infection, acute Upper respiratory infection, acute : Patient Instructions Indication:Upper respiratory infection, acute Constipation : How to access health information online Indication:Constipation Constipation : How to access health information online - Detail Indication:Constipation Constipation : Patient Instr uctions Indication:Constipation BMI 36.0-36.9,adult : How to access health information online Indication:BMI 36.0-36.9,adult BMI 36.0-36.9,adult : How to access health information online - Detail Indication:BMI 36.0-36.9,adult BMI 36.0-36.9,adult : Patien t Instructions Indication:BMI 36.0-36.9,adult Fever : How to access health information online Indication:Fever Fever : How to access health information online - Detail Indication:Fever Fever : Patient Instructions Indication:Fever Asthma in adult, mild interm ittent, with acute exacerbation : How to access health information online Indication:Asthma in adult, mild intermittent, with acute exacerbation Asthma in adult, mild interm ittent, with acute exacerbation : How to access health information online - Detail Indication:Asthma in adult, mild intermittent, with acute exacerbation Asthma in adult, mild interm ittent, with acute exacerbation : Patient Instructions Indication:Asthma in adult, mild intermittent, with acute exacerbation Abnormal weight gain : How t o access health information online Indication:Abnormal weight gain Abnormal weight gain : How t o access health information online - Detail Indication:Abnormal weight gain Abnormal weight gain : Patie nt Instructions Indication:Abnormal weight gain Nonsmoker : How to access he alth information online Indication:Nonsmoker Nonsmoker : How to access he alth information online - Detail Indication:Nonsmoker Nonsmoker : Patient Instruct ions Indication:Nonsmoker Pelvic pain in female : How to access health information online Indication:Pelvic pain in female Pelvic pain in female : How to access health information online - Detail Indication:Pelvic pain in female Pelvic pain in female : Dayana ent Instructions Indication:Pelvic pain in female Dysuria : How to access heal th information online Indication:Dysuria Dysuria : How to access heal th information online - Detail Indication:Dysuria Dysuria : Patient Instructio ns Indication:Dysuria Well woman exam (Renamed fro m Encounter for well woman exam) : How to access health information online Indication:Well woman exam (Renamed from Encounter for well woman exam) Well woman exam (Renamed fro m Encounter for well woman exam) : How to access health information online - Detail Indication:Well woman exam (Renamed from Encounter for well woman exam) Well woman exam (Renamed fro m Encounter for well woman exam) : Patient Instructions Indication:Well woman exam (Renamed from Encounter for well woman exam) Dysthymic disorder : Patient Instructions Indication:Dysthymic disorder Physical exam, routine : Pat ient Instructions Indication:Physical exam, routine Dysmenorrhea : Patient Instr uctions Indication:Dysmenorrhea SHORTNESS OF BREATH : Patien t Instructions Indication:SHORTNESS OF BREATH Epigastric pain : Patient In structions Indication:Epigastric pain Name Dates Details How to Access Health Informa tion Online using Patient Portal and [employer]rd [employer] Apps Indication:Right upper quadrant pain Start:02-Jun-2020 Instruction Type:Patient Education Patient Instructions Indication:Right upper quadrant pain Start:02-Jun-2020 Instruction Type:Provider Instructions for Treatment Patient Instructions Indication:Anxiety and depression Start:18-Jul-2019 Instruction Type:Provider Instructions for Treatment How to access health informa tion online Indication:Myalgia Start:09-Jun-2019 Instruction Type:Patient Education How to access health informa tion online - Detail Indication:Myalgia Start:09-Jun-2019 Instruction Type:Patient Education Patient Instructions Indication:Myalgia Start:09-Jun-2019 Instruction Type:Provider Instructions for Treatment How to access health informa tion online Indication:Nonsmoker Start:30-Sep-2018 Instruction Type:Patient Education How to access health informa tion online - Detail Indication:Nonsmoker Start:30-Sep-2018 Instruction Type:Patient Education Patient Instructions Indication:Nonsmoker Start:30-Sep-2018 Instruction Type:Provider Instructions for Treatment How to access health informa tion online Indication:Sore throat Start:03-Aug-2018 Instruction Type:Patient Education How to access health informa tion online - Detail Indication:Sore throat Start:03-Aug-2018 Instruction Type:Patient Education Patient Instructions Indication:Sore throat Start:03-Aug-2018 Instruction Type:Provider Instructions for Treatment How to access health informa tion online Indication:BMI 38.0-38.9,adult Start:20-May-2018 Instruction Type:Patient Education How to access health informa tion online - Detail Indication:BMI 38.0-38.9,adult Start:20-May-2018 Instruction Type:Patient Education Patient Instructions Indication:BMI 38.0-38.9,adult Start:20-May-2018 Instruction Type:Provider Instructions for Treatment How to access health informa tion online Indication:Upper respiratory infection, acute Start:09-Mar-2018 Instruction Type:Patient Education How to access health informa tion online - Detail Indication:Upper respiratory infection, acute Start:09-Mar-2018 Instruction Type:Patient Education Patient Instructions Indication:Upper respiratory infection, acute Start:09-Mar-2018 Instruction Type:Provider Instructions for Treatment How to access health informa tion online Indication:Constipation Start:10-Nov-2017 Instruction Type:Patient Education How to access health informa tion online - Detail Indication:Constipation Start:10-Nov-2017 Instruction Type:Patient Education Patient Instructions Indication:Constipation Start:10-Nov-2017 Instruction Type:Provider Instructions for Treatment How to access health informa tion online Indication:BMI 36.0-36.9,adult Start:16-Jun-2017 Instruction Type:Patient Education How to access health informa tion online - Detail Indication:BMI 36.0-36.9,adult Start:16-Jun-2017 Instruction Type:Patient Education Patient Instructions Indication:BMI 36.0-36.9,adult Start:16-Jun-2017 Instruction Type:Provider Instructions for Treatment How to access health informa tion online Indication:Fever Start:04-Jun-2017 Instruction Type:Patient Education How to access health informa tion online - Detail Indication:Fever Start:04-Jun-2017 Instruction Type:Patient Education Patient Instructions Indication:Fever Start:04-Jun-2017 Instruction Type:Provider Instructions for Treatment How to access health informa tion online Indication:Asthma in adult, mild intermittent, with acute exacerbation Start:06-May-2017 Instruction Type:Patient Education How to access health informa tion online - Detail Indication:Asthma in adult, mild intermittent, with acute exacerbation Start:06-May-2017 Instruction Type:Patient Education Patient Instructions Indication:Asthma in adult, mild intermittent, with acute exacerbation Start:06-May-2017 Instruction Type:Provider Instructions for Treatment How to access health informa tion online Indication:BMI 36.0-36.9,adult Start:26-Mar-2017 Instruction Type:Patient Education How to access health informa tion online - Detail Indication:BMI 36.0-36.9,adult Start:26-Mar-2017 Instruction Type:Patient Education Patient Instructions Indication:BMI 36.0-36.9,adult Start:26-Mar-2017 Instruction Type:Provider Instructions for Treatment How to access health informa tion online Indication:BMI 36.0-36.9,adult Start:19-Mar-2017 Instruction Type:Patient Education How to access health informa tion online - Detail Indication:BMI 36.0-36.9,adult Start:19-Mar-2017 Instruction Type:Patient Education Patient Instructions Indication:BMI 36.0-36.9,adult Start:19-Mar-2017 Instruction Type:Provider Instructions for Treatment How to access health informa tion online Indication:Abnormal weight gain Start:19-Feb-2017 Instruction Type:Patient Education How to access health informa tion online - Detail Indication:Abnormal weight gain Start:19-Feb-2017 Instruction Type:Patient Education Patient Instructions Indication:Abnormal weight gain Start:19-Feb-2017 Instruction Type:Provider Instructions for Treatment How to access health informa tion online Indication:Abnormal weight gain Start:05-Feb-2017 Instruction Type:Patient Education How to access health informa tion online - Detail Indication:Abnormal weight gain Start:05-Feb-2017 Instruction Type:Patient Education Patient Instructions Indication:Abnormal weight gain Start:05-Feb-2017 Instruction Type:Provider Instructions for Treatment How to access health informa tion online Indication:Abnormal weight gain Start:22-Jan-2017 Instruction Type:Patient Education How to access health informa tion online - Detail Indication:Abnormal weight gain Start:22-Jan-2017 Instruction Type:Patient Education Patient Instructions Indication:Abnormal weight gain Start:22-Jan-2017 Instruction Type:Provider Instructions for Treatment How to access health informa tion online Indication:Nonsmoker Start:03-Jan-2017 Instruction Type:Patient Education How to access health informa tion online - Detail Indication:Nonsmoker Start:03-Jan-2017 Instruction Type:Patient Education Patient Instructions Indication:Nonsmoker Start:03-Jan-2017 Instruction Type:Provider Instructions for Treatment How to access health informa tion online Indication:Pelvic pain in female Start:03-Dec-2016 Instruction Type:Patient Education How to access health informa tion online - Detail Indication:Pelvic pain in female Start:03-Dec-2016 Instruction Type:Patient Education Patient Instructions Indication:Pelvic pain in female Start:03-Dec-2016 Instruction Type:Provider Instructions for Treatment How to access health informa tion online Indication:BMI 36.0-36.9,adult Start:18-Nov-2016 Instruction Type:Patient Education How to access health informa tion online - Detail Indication:BMI 36.0-36.9,adult Start:18-Nov-2016 Instruction Type:Patient Education Patient Instructions Indication:BMI 36.0-36.9,adult Start:18-Nov-2016 Instruction Type:Provider Instructions for Treatment How to access health informa tion online Indication:Asthma in adult, mild intermittent, with acute exacerbation Start:12-Apr-2016 Instruction Type:Patient Education How to access health informa tion online - Detail Indication:Asthma in adult, mild intermittent, with acute exacerbation Start:12-Apr-2016 Instruction Type:Patient Education Patient Instructions Indication:Asthma in adult, mild intermittent, with acute exacerbation Start:12-Apr-2016 Instruction Type:Provider Instructions for Treatment How to access health informa tion online Indication:Dysuria Start:27-Feb-2016 Instruction Type:Patient Education How to access health informa tion online - Detail Indication:Dysuria Start:27-Feb-2016 Instruction Type:Patient Education Patient Instructions Indication:Dysuria Start:27-Feb-2016 Instruction Type:Provider Instructions for Treatment How to access health informa tion online Indication:Well woman exam (Renamed from Encounter for well woman exam) Start:05-Feb-2016 Instruction Type:Patient Education How to access health informa tion online - Detail Indication:Well woman exam (Renamed from Encounter for well woman exam) Start:05-Feb-2016 Instruction Type:Patient Education Patient Instructions Indication:Well woman exam (Renamed from Encounter for well woman exam) Start:05-Feb-2016 Instruction Type:Provider Instructions for Treatment Patient Instructions Indication:Dysthymic disorder Start:10-May-2014 Instruction Type:Provider Instructions for Treatment Patient Instructions Indication:Physical exam, routine Start:03-May-2013 Instruction Type:Provider Instructions for Treatment Patient Instructions Indication:Dysmenorrhea Start:22-Jan-2013 Instruction Type:Provider Instructions for Treatment Patient Instructions Indication:SHORTNESS OF BREATH Start:27-Apr-2012 Instruction Type:Provider Instructions for Treatment Patient Instructions Indication:Epigastric pain Start:21-Feb-2012 Instruction Type:Provider Instructions for Treatment Patient Instructions Indication:Epigastric pain Start:17-Jan-2012 Instruction Type:Provider Instructions for Treatment Name Dates Details How to access health informa tion online Indication:Sore throat Start:03-Aug-2018 Instruction Type:Patient Education How to access health informa tion online - Detail Indication:Sore throat Start:03-Aug-2018 Instruction Type:Patient Education Patient Instructions Indication:Sore throat Start:03-Aug-2018 Instruction Type:Provider Instructions for Treatment How to access health informa tion online Indication:BMI 38.0-38.9,adult Start:20-May-2018 Instruction Type:Patient Education How to access health informa tion online - Detail Indication:BMI 38.0-38.9,adult Start:20-May-2018 Instruction Type:Patient Education Patient Instructions Indication:BMI 38.0-38.9,adult Start:20-May-2018 Instruction Type:Provider Instructions for Treatment How to access health informa tion online Indication:Upper respiratory infection, acute Start:09-Mar-2018 Instruction Type:Patient Education How to access health informa tion online - Detail Indication:Upper respiratory infection, acute Start:09-Mar-2018 Instruction Type:Patient Education Patient Instructions Indication:Upper respiratory infection, acute Start:09-Mar-2018 Instruction Type:Provider Instructions for Treatment How to access health informa tion online Indication:Constipation Start:10-Nov-2017 Instruction Type:Patient Education How to access health informa tion online - Detail Indication:Constipation Start:10-Nov-2017 Instruction Type:Patient Education Patient Instructions Indication:Constipation Start:10-Nov-2017 Instruction Type:Provider Instructions for Treatment How to access health informa tion online Indication:BMI 36.0-36.9,adult Start:16-Jun-2017 Instruction Type:Patient Education How to access health informa tion online - Detail Indication:BMI 36.0-36.9,adult Start:16-Jun-2017 Instruction Type:Patient Education Patient Instructions Indication:BMI 36.0-36.9,adult Start:16-Jun-2017 Instruction Type:Provider Instructions for Treatment How to access health informa tion online Indication:Fever Start:04-Jun-2017 Instruction Type:Patient Education How to access health informa tion online - Detail Indication:Fever Start:04-Jun-2017 Instruction Type:Patient Education Patient Instructions Indication:Fever Start:04-Jun-2017 Instruction Type:Provider Instructions for Treatment How to access health informa tion online Indication:Asthma in adult, mild intermittent, with acute exacerbation Start:06-May-2017 Instruction Type:Patient Education How to access health informa tion online - Detail Indication:Asthma in adult, mild intermittent, with acute exacerbation Start:06-May-2017 Instruction Type:Patient Education Patient Instructions Indication:Asthma in adult, mild intermittent, with acute exacerbation Start:06-May-2017 Instruction Type:Provider Instructions for Treatment How to access health informa tion online Indication:BMI 36.0-36.9,adult Start:26-Mar-2017 Instruction Type:Patient Education How to access health informa tion online - Detail Indication:BMI 36.0-36.9,adult Start:26-Mar-2017 Instruction Type:Patient Education Patient Instructions Indication:BMI 36.0-36.9,adult Start:26-Mar-2017 Instruction Type:Provider Instructions for Treatment How to access health informa tion online Indication:BMI 36.0-36.9,adult Start:19-Mar-2017 Instruction Type:Patient Education How to access health informa tion online - Detail Indication:BMI 36.0-36.9,adult Start:19-Mar-2017 Instruction Type:Patient Education Patient Instructions Indication:BMI 36.0-36.9,adult Start:19-Mar-2017 Instruction Type:Provider Instructions for Treatment How to access health informa tion online Indication:Abnormal weight gain Start:19-Feb-2017 Instruction Type:Patient Education How to access health informa tion online - Detail Indication:Abnormal weight gain Start:19-Feb-2017 Instruction Type:Patient Education Patient Instructions Indication:Abnormal weight gain Start:19-Feb-2017 Instruction Type:Provider Instructions for Treatment How to access health informa tion online Indication:Abnormal weight gain Start:05-Feb-2017 Instruction Type:Patient Education How to access health informa tion online - Detail Indication:Abnormal weight gain Start:05-Feb-2017 Instruction Type:Patient Education Patient Instructions Indication:Abnormal weight gain Start:05-Feb-2017 Instruction Type:Provider Instructions for Treatment How to access health informa tion online Indication:Abnormal weight gain Start:22-Jan-2017 Instruction Type:Patient Education How to access health informa tion online - Detail Indication:Abnormal weight gain Start:22-Jan-2017 Instruction Type:Patient Education Patient Instructions Indication:Abnormal weight gain Start:22-Jan-2017 Instruction Type:Provider Instructions for Treatment How to access health informa tion online Indication:Nonsmoker Start:03-Jan-2017 Instruction Type:Patient Education How to access health informa tion online - Detail Indication:Nonsmoker Start:03-Jan-2017 Instruction Type:Patient Education Patient Instructions Indication:Nonsmoker Start:03-Jan-2017 Instruction Type:Provider Instructions for Treatment How to access health informa tion online Indication:Pelvic pain in female Start:03-Dec-2016 Instruction Type:Patient Education How to access health informa tion online - Detail Indication:Pelvic pain in female Start:03-Dec-2016 Instruction Type:Patient Education Patient Instructions Indication:Pelvic pain in female Start:03-Dec-2016 Instruction Type:Provider Instructions for Treatment How to access health informa tion online Indication:BMI 36.0-36.9,adult Start:18-Nov-2016 Instruction Type:Patient Education How to access health informa tion online - Detail Indication:BMI 36.0-36.9,adult Start:18-Nov-2016 Instruction Type:Patient Education Patient Instructions Indication:BMI 36.0-36.9,adult Start:18-Nov-2016 Instruction Type:Provider Instructions for Treatment How to access health informa tion online Indication:Asthma in adult, mild intermittent, with acute exacerbation Start:12-Apr-2016 Instruction Type:Patient Education How to access health informa tion online - Detail Indication:Asthma in adult, mild intermittent, with acute exacerbation Start:12-Apr-2016 Instruction Type:Patient Education Patient Instructions Indication:Asthma in adult, mild intermittent, with acute exacerbation Start:12-Apr-2016 Instruction Type:Provider Instructions for Treatment How to access health informa tion online Indication:Dysuria Start:27-Feb-2016 Instruction Type:Patient Education How to access health informa tion online - Detail Indication:Dysuria Start:27-Feb-2016 Instruction Type:Patient Education Patient Instructions Indication:Dysuria Start:27-Feb-2016 Instruction Type:Provider Instructions for Treatment How to access health informa tion online Indication:Well woman exam (Renamed from Encounter for well woman exam) Start:05-Feb-2016 Instruction Type:Patient Education How to access health informa tion online - Detail Indication:Well woman exam (Renamed from Encounter for well woman exam) Start:05-Feb-2016 Instruction Type:Patient Education Patient Instructions Indication:Well woman exam (Renamed from Encounter for well woman exam) Start:05-Feb-2016 Instruction Type:Provider Instructions for Treatment Patient Instructions Indication:Dysthymic disorder Start:10-May-2014 Instruction Type:Provider Instructions for Treatment Patient Instructions Indication:Physical exam, routine Start:03-May-2013 Instruction Type:Provider Instructions for Treatment Patient Instructions Indication:Dysmenorrhea Start:22-Jan-2013 Instruction Type:Provider Instructions for Treatment Patient Instructions Indication:SHORTNESS OF BREATH Start:27-Apr-2012 Instruction Type:Provider Instructions for Treatment Patient Instructions Indication:Epigastric pain Start:21-Feb-2012 Instruction Type:Provider Instructions for Treatment Patient Instructions Indication:Epigastric pain Start:17-Jan-2012 Instruction Type:Provider Instructions for Treatment Name Dates Details Patient Instructions Indication:Anxiety and depression Start:18-Jul-2019 Instruction Type:Provider Instructions for Treatment How to access health informa tion online Indication:Myalgia Start:09-Jun-2019 Instruction Type:Patient Education How to access health informa tion online - Detail Indication:Myalgia Start:09-Jun-2019 Instruction Type:Patient Education Patient Instructions Indication:Myalgia Start:09-Jun-2019 Instruction Type:Provider Instructions for Treatment How to access health informa tion online Indication:Nonsmoker Start:30-Sep-2018 Instruction Type:Patient Education How to access health informa tion online - Detail Indication:Nonsmoker Start:30-Sep-2018 Instruction Type:Patient Education Patient Instructions Indication:Nonsmoker Start:30-Sep-2018 Instruction Type:Provider Instructions for Treatment How to access health informa tion online Indication:Sore throat Start:03-Aug-2018 Instruction Type:Patient Education How to access health informa tion online - Detail Indication:Sore throat Start:03-Aug-2018 Instruction Type:Patient Education Patient Instructions Indication:Sore throat Start:03-Aug-2018 Instruction Type:Provider Instructions for Treatment How to access health informa tion online Indication:BMI 38.0-38.9,adult Start:20-May-2018 Instruction Type:Patient Education How to access health informa tion online - Detail Indication:BMI 38.0-38.9,adult Start:20-May-2018 Instruction Type:Patient Education Patient Instructions Indication:BMI 38.0-38.9,adult Start:20-May-2018 Instruction Type:Provider Instructions for Treatment How to access health informa tion online Indication:Upper respiratory infection, acute Start:09-Mar-2018 Instruction Type:Patient Education How to access health informa tion online - Detail Indication:Upper respiratory infection, acute Start:09-Mar-2018 Instruction Type:Patient Education Patient Instructions Indication:Upper respiratory infection, acute Start:09-Mar-2018 Instruction Type:Provider Instructions for Treatment How to access health informa tion online Indication:Constipation Start:10-Nov-2017 Instruction Type:Patient Education How to access health informa tion online - Detail Indication:Constipation Start:10-Nov-2017 Instruction Type:Patient Education Patient Instructions Indication:Constipation Start:10-Nov-2017 Instruction Type:Provider Instructions for Treatment How to access health informa tion online Indication:BMI 36.0-36.9,adult Start:16-Jun-2017 Instruction Type:Patient Education How to access health informa tion online - Detail Indication:BMI 36.0-36.9,adult Start:16-Jun-2017 Instruction Type:Patient Education Patient Instructions Indication:BMI 36.0-36.9,adult Start:16-Jun-2017 Instruction Type:Provider Instructions for Treatment How to access health informa tion online Indication:Fever Start:04-Jun-2017 Instruction Type:Patient Education How to access health informa tion online - Detail Indication:Fever Start:04-Jun-2017 Instruction Type:Patient Education Patient Instructions Indication:Fever Start:04-Jun-2017 Instruction Type:Provider Instructions for Treatment How to access health informa tion online Indication:Asthma in adult, mild intermittent, with acute exacerbation Start:06-May-2017 Instruction Type:Patient Education How to access health informa tion online - Detail Indication:Asthma in adult, mild intermittent, with acute exacerbation Start:06-May-2017 Instruction Type:Patient Education Patient Instructions Indication:Asthma in adult, mild intermittent, with acute exacerbation Start:06-May-2017 Instruction Type:Provider Instructions for Treatment How to access health informa tion online Indication:BMI 36.0-36.9,adult Start:26-Mar-2017 Instruction Type:Patient Education How to access health informa tion online - Detail Indication:BMI 36.0-36.9,adult Start:26-Mar-2017 Instruction Type:Patient Education Patient Instructions Indication:BMI 36.0-36.9,adult Start:26-Mar-2017 Instruction Type:Provider Instructions for Treatment How to access health informa tion online Indication:BMI 36.0-36.9,adult Start:19-Mar-2017 Instruction Type:Patient Education How to access health informa tion online - Detail Indication:BMI 36.0-36.9,adult Start:19-Mar-2017 Instruction Type:Patient Education Patient Instructions Indication:BMI 36.0-36.9,adult Start:19-Mar-2017 Instruction Type:Provider Instructions for Treatment How to access health informa tion online Indication:Abnormal weight gain Start:19-Feb-2017 Instruction Type:Patient Education How to access health informa tion online - Detail Indication:Abnormal weight gain Start:19-Feb-2017 Instruction Type:Patient Education Patient Instructions Indication:Abnormal weight gain Start:19-Feb-2017 Instruction Type:Provider Instructions for Treatment How to access health informa tion online Indication:Abnormal weight gain Start:05-Feb-2017 Instruction Type:Patient Education How to access health informa tion online - Detail Indication:Abnormal weight gain Start:05-Feb-2017 Instruction Type:Patient Education Patient Instructions Indication:Abnormal weight gain Start:05-Feb-2017 Instruction Type:Provider Instructions for Treatment How to access health informa tion online Indication:Abnormal weight gain Start:22-Jan-2017 Instruction Type:Patient Education How to access health informa tion online - Detail Indication:Abnormal weight gain Start:22-Jan-2017 Instruction Type:Patient Education Patient Instructions Indication:Abnormal weight gain Start:22-Jan-2017 Instruction Type:Provider Instructions for Treatment How to access health informa tion online Indication:Nonsmoker Start:03-Jan-2017 Instruction Type:Patient Education How to access health informa tion online - Detail Indication:Nonsmoker Start:03-Jan-2017 Instruction Type:Patient Education Patient Instructions Indication:Nonsmoker Start:03-Jan-2017 Instruction Type:Provider Instructions for Treatment How to access health informa tion online Indication:Pelvic pain in female Start:03-Dec-2016 Instruction Type:Patient Education How to access health informa tion online - Detail Indication:Pelvic pain in female Start:03-Dec-2016 Instruction Type:Patient Education Patient Instructions Indication:Pelvic pain in female Start:03-Dec-2016 Instruction Type:Provider Instructions for Treatment How to access health informa tion online Indication:BMI 36.0-36.9,adult Start:18-Nov-2016 Instruction Type:Patient Education How to access health informa tion online - Detail Indication:BMI 36.0-36.9,adult Start:18-Nov-2016 Instruction Type:Patient Education Patient Instructions Indication:BMI 36.0-36.9,adult Start:18-Nov-2016 Instruction Type:Provider Instructions for Treatment How to access health informa tion online Indication:Asthma in adult, mild intermittent, with acute exacerbation Start:12-Apr-2016 Instruction Type:Patient Education How to access health informa tion online - Detail Indication:Asthma in adult, mild intermittent, with acute exacerbation Start:12-Apr-2016 Instruction Type:Patient Education Patient Instructions Indication:Asthma in adult, mild intermittent, with acute exacerbation Start:12-Apr-2016 Instruction Type:Provider Instructions for Treatment How to access health informa tion online Indication:Dysuria Start:27-Feb-2016 Instruction Type:Patient Education How to access health informa tion online - Detail Indication:Dysuria Start:27-Feb-2016 Instruction Type:Patient Education Patient Instructions Indication:Dysuria Start:27-Feb-2016 Instruction Type:Provider Instructions for Treatment How to access health informa tion online Indication:Well woman exam (Renamed from Encounter for well woman exam) Start:05-Feb-2016 Instruction Type:Patient Education How to access health informa tion online - Detail Indication:Well woman exam (Renamed from Encounter for well woman exam) Start:05-Feb-2016 Instruction Type:Patient Education Patient Instructions Indication:Well woman exam (Renamed from Encounter for well woman exam) Start:05-Feb-2016 Instruction Type:Provider Instructions for Treatment Patient Instructions Indication:Dysthymic disorder Start:10-May-2014 Instruction Type:Provider Instructions for Treatment Patient Instructions Indication:Physical exam, routine Start:03-May-2013 Instruction Type:Provider Instructions for Treatment Patient Instructions Indication:Dysmenorrhea Start:22-Jan-2013 Instruction Type:Provider Instructions for Treatment Patient Instructions Indication:SHORTNESS OF BREATH Start:27-Apr-2012 Instruction Type:Provider Instructions for Treatment Patient Instructions Indication:Epigastric pain Start:21-Feb-2012 Instruction Type:Provider Instructions for Treatment Patient Instructions Indication:Epigastric pain Start:17-Jan-2012 Instruction Type:Provider Instructions for Treatment Name Dates Details How to Access Health Informa tion Online using Patient Portal and [employer] Apps Indication:Right upper quadrant pain Start:02-Jun-2020 Instruction Type:Patient Education Patient Instructions Indication:Right upper quadrant pain Start:02-Jun-2020 Instruction Type:Provider Instructions for Treatment Patient Instructions Indication:Anxiety and depression Start:18-Jul-2019 Instruction Type:Provider Instructions for Treatment How to access health informa tion online Indication:Myalgia Start:09-Jun-2019 Instruction Type:Patient Education How to access health informa tion online - Detail Indication:Myalgia Start:09-Jun-2019 Instruction Type:Patient Education Patient Instructions Indication:Myalgia Start:09-Jun-2019 Instruction Type:Provider Instructions for Treatment How to access health informa tion online Indication:Nonsmoker Start:30-Sep-2018 Instruction Type:Patient Education How to access health informa tion online - Detail Indication:Nonsmoker Start:30-Sep-2018 Instruction Type:Patient Education Patient Instructions Indication:Nonsmoker Start:30-Sep-2018 Instruction Type:Provider Instructions for Treatment How to access health informa tion online Indication:Sore throat Start:03-Aug-2018 Instruction Type:Patient Education How to access health informa tion online - Detail Indication:Sore throat Start:03-Aug-2018 Instruction Type:Patient Education Patient Instructions Indication:Sore throat Start:03-Aug-2018 Instruction Type:Provider Instructions for Treatment How to access health informa tion online Indication:BMI 38.0-38.9,adult Start:20-May-2018 Instruction Type:Patient Education How to access health informa tion online - Detail Indication:BMI 38.0-38.9,adult Start:20-May-2018 Instruction Type:Patient Education Patient Instructions Indication:BMI 38.0-38.9,adult Start:20-May-2018 Instruction Type:Provider Instructions for Treatment How to access health informa tion online Indication:Upper respiratory infection, acute Start:09-Mar-2018 Instruction Type:Patient Education How to access health informa tion online - Detail Indication:Upper respiratory infection, acute Start:09-Mar-2018 Instruction Type:Patient Education Patient Instructions Indication:Upper respiratory infection, acute Start:09-Mar-2018 Instruction Type:Provider Instructions for Treatment How to access health informa tion online Indication:Constipation Start:10-Nov-2017 Instruction Type:Patient Education How to access health informa tion online - Detail Indication:Constipation Start:10-Nov-2017 Instruction Type:Patient Education Patient Instructions Indication:Constipation Start:10-Nov-2017 Instruction Type:Provider Instructions for Treatment How to access health informa tion online Indication:BMI 36.0-36.9,adult Start:16-Jun-2017 Instruction Type:Patient Education How to access health informa tion online - Detail Indication:BMI 36.0-36.9,adult Start:16-Jun-2017 Instruction Type:Patient Education Patient Instructions Indication:BMI 36.0-36.9,adult Start:16-Jun-2017 Instruction Type:Provider Instructions for Treatment How to access health informa tion online Indication:Fever Start:04-Jun-2017 Instruction Type:Patient Education How to access health informa tion online - Detail Indication:Fever Start:04-Jun-2017 Instruction Type:Patient Education Patient Instructions Indication:Fever Start:04-Jun-2017 Instruction Type:Provider Instructions for Treatment How to access health informa tion online Indication:Asthma in adult, mild intermittent, with acute exacerbation Start:06-May-2017 Instruction Type:Patient Education How to access health informa tion online - Detail Indication:Asthma in adult, mild intermittent, with acute exacerbation Start:06-May-2017 Instruction Type:Patient Education Patient Instructions Indication:Asthma in adult, mild intermittent, with acute exacerbation Start:06-May-2017 Instruction Type:Provider Instructions for Treatment How to access health informa tion online Indication:BMI 36.0-36.9,adult Start:26-Mar-2017 Instruction Type:Patient Education How to access health informa tion online - Detail Indication:BMI 36.0-36.9,adult Start:26-Mar-2017 Instruction Type:Patient Education Patient Instructions Indication:BMI 36.0-36.9,adult Start:26-Mar-2017 Instruction Type:Provider Instructions for Treatment How to access health informa tion online Indication:BMI 36.0-36.9,adult Start:19-Mar-2017 Instruction Type:Patient Education How to access health informa tion online - Detail Indication:BMI 36.0-36.9,adult Start:19-Mar-2017 Instruction Type:Patient Education Patient Instructions Indication:BMI 36.0-36.9,adult Start:19-Mar-2017 Instruction Type:Provider Instructions for Treatment How to access health informa tion online Indication:Abnormal weight gain Start:19-Feb-2017 Instruction Type:Patient Education How to access health informa tion online - Detail Indication:Abnormal weight gain Start:19-Feb-2017 Instruction Type:Patient Education Patient Instructions Indication:Abnormal weight gain Start:19-Feb-2017 Instruction Type:Provider Instructions for Treatment How to access health informa tion online Indication:Abnormal weight gain Start:05-Feb-2017 Instruction Type:Patient Education How to access health informa tion online - Detail Indication:Abnormal weight gain Start:05-Feb-2017 Instruction Type:Patient Education Patient Instructions Indication:Abnormal weight gain Start:05-Feb-2017 Instruction Type:Provider Instructions for Treatment How to access health informa tion online Indication:Abnormal weight gain Start:22-Jan-2017 Instruction Type:Patient Education How to access health informa tion online - Detail Indication:Abnormal weight gain Start:22-Jan-2017 Instruction Type:Patient Education Patient Instructions Indication:Abnormal weight gain Start:22-Jan-2017 Instruction Type:Provider Instructions for Treatment How to access health informa tion online Indication:Nonsmoker Start:03-Jan-2017 Instruction Type:Patient Education How to access health informa tion online - Detail Indication:Nonsmoker Start:03-Jan-2017 Instruction Type:Patient Education Patient Instructions Indication:Nonsmoker Start:03-Jan-2017 Instruction Type:Provider Instructions for Treatment How to access health informa tion online Indication:Pelvic pain in female Start:03-Dec-2016 Instruction Type:Patient Education How to access health informa tion online - Detail Indication:Pelvic pain in female Start:03-Dec-2016 Instruction Type:Patient Education Patient Instructions Indication:Pelvic pain in female Start:03-Dec-2016 Instruction Type:Provider Instructions for Treatment How to access health informa tion online Indication:BMI 36.0-36.9,adult Start:18-Nov-2016 Instruction Type:Patient Education How to access health informa tion online - Detail Indication:BMI 36.0-36.9,adult Start:18-Nov-2016 Instruction Type:Patient Education Patient Instructions Indication:BMI 36.0-36.9,adult Start:18-Nov-2016 Instruction Type:Provider Instructions for Treatment How to access health informa tion online Indication:Asthma in adult, mild intermittent, with acute exacerbation Start:12-Apr-2016 Instruction Type:Patient Education How to access health informa tion online - Detail Indication:Asthma in adult, mild intermittent, with acute exacerbation Start:12-Apr-2016 Instruction Type:Patient Education Patient Instructions Indication:Asthma in adult, mild intermittent, with acute exacerbation Start:12-Apr-2016 Instruction Type:Provider Instructions for Treatment How to access health informa tion online Indication:Dysuria Start:27-Feb-2016 Instruction Type:Patient Education How to access health informa tion online - Detail Indication:Dysuria Start:27-Feb-2016 Instruction Type:Patient Education Patient Instructions Indication:Dysuria Start:27-Feb-2016 Instruction Type:Provider Instructions for Treatment How to access health informa tion online Indication:Well woman exam (Renamed from Encounter for well woman exam) Start:05-Feb-2016 Instruction Type:Patient Education How to access health informa tion online - Detail Indication:Well woman exam (Renamed from Encounter for well woman exam) Start:05-Feb-2016 Instruction Type:Patient Education Patient Instructions Indication:Well woman exam (Renamed from Encounter for well woman exam) Start:05-Feb-2016 Instruction Type:Provider Instructions for Treatment Patient Instructions Indication:Dysthymic disorder Start:10-May-2014 Instruction Type:Provider Instructions for Treatment Patient Instructions Indication:Physical exam, routine Start:03-May-2013 Instruction Type:Provider Instructions for Treatment Patient Instructions Indication:Dysmenorrhea Start:22-Jan-2013 Instruction Type:Provider Instructions for Treatment Patient Instructions Indication:SHORTNESS OF BREATH Start:27-Apr-2012 Instruction Type:Provider Instructions for Treatment Patient Instructions Indication:Epigastric pain Start:21-Feb-2012 Instruction Type:Provider Instructions for Treatment Patient Instructions Indication:Epigastric pain Start:17-Jan-2012 Instruction Type:Provider Instructions for Treatment Chief Complaint and Reason for Visit Chief Complaint PE physical Annual ([employer]) PELVIC PAIN Reason for Visit Encounter for pre-em ployment health screening examination Chief Complaint E ORDER Chief Complaint E ORDER NOB LMP 12/29/21 Reason for Visit Asthma Encounter for pre-employment health screening examination Fibroid uterus Infertility Obesity affecting Seasonal allergies Spotting Supervision of high risk , antepartum Chief Complaint E ORDER NOB LMP 12/29/21 13 WK OB SCREENING FOR GESTATIONAL DM Reason for Visit Asthma Encounter for pre-employment health screening examination Fibroid uterus Infertility Obesity affecting Seasonal allergies Spotting Supervision of high risk , antepartum Asthma Obesity affecting Seasonal allergies Supervision of high risk , antepartum Chief Complaint E ORDER NOB LMP 12/29/21 13 WK OB SCREENING FOR GESTATIONAL DM 18 WK OB Reason for Visit Asthma Fibroid uterus Infertility Obesity affecting Seasonal allergies Spotting Supervision of high risk , antepartum Asthma Obesity affecting Seasonal allergies Supervision of high risk , antepartum Obesity affecting Supervision of high risk , antepartum Chief Complaint 13 WK OB SCREENING FOR GESTATIONAL DM 18 WK OB 22 WK OB 26 WK OB E ORDERS 29 WK OB Reason for Visit Asthma Obesity affecting Seasonal allergies Supervision of high risk , antepartum Obesity affecting Supervision of high risk , antepartum Asthma Fibroid uterus Infertility Obesity affecting Seasonal allergies Spotting Supervision of high risk , antepartum Asthma Difficulty swallowing Fibroid uterus Infertility Obesity affecting Seasonal allergies Spotting Supervision of high risk , antepartum Anemia in preg-unspec Infertility Obesity affecting Supervision of high risk , antepartum Chief Complaint 13 WK OB SCREENING FOR GESTATIONAL DM 18 WK OB 22 WK OB 26 WK OB E ORDERS 29 WK OB 31 WK OB R/O PRE ECLAMPSIA R/O PRE ECLAMPSIA Reason for Visit Asthma Obesity affecting Seasonal allergies Supervision of high risk , antepartum Obesity affecting Supervision of high risk , antepartum Asthma Fibroid uterus Infertility Obesity affecting Seasonal allergies Spotting Supervision of high risk , antepartum Asthma Difficulty swallowing Fibroid uterus Infertility Obesity affecting Seasonal allergies Spotting Supervision of high risk , antepartum Anemia in preg-unspec Infertility Obesity affecting Supervision of high risk , antepartum Anemia in preg-unspec Asthma Difficulty swallowing Fibroid uterus Infertility Obesity affecting Seasonal allergies Spotting Supervision of high risk , antepartum Transient hypertension of Gestational hypertension Chief Complaint 13 WK OB SCREENING FOR GESTATIONAL DM 18 WK OB 22 WK OB 26 WK OB E ORDERS 29 WK OB 31 WK OB R/O PRE ECLAMPSIA R/O PRE ECLAMPSIA CELESTONE Reason for Visit Asthma Obesity affecting Seasonal allergies Supervision of high risk , antepartum Obesity affecting Supervision of high risk , antepartum Asthma Fibroid uterus Infertility Obesity affecting Seasonal allergies Spotting Supervision of high risk , antepartum Asthma Difficulty swallowing Fibroid uterus Infertility Obesity affecting Seasonal allergies Spotting Supervision of high risk , antepartum Anemia in preg-unspec Infertility Obesity affecting Supervision of high risk , antepartum Anemia in preg-unspec Asthma Difficulty swallowing Fibroid uterus Infertility Obesity affecting Seasonal allergies Spotting Supervision of high risk , antepartum Transient hypertension of Gestational hypertension Chief Complaint 18 WK OB 22 WK OB 26 WK OB E ORDERS 29 WK OB 31 WK OB R/O PRE ECLAMPSIA R/O PRE ECLAMPSIA CELESTONE NST 32 WK OB/NST [place]; WEEKLY SCAN 32 WK NST 33 WK OB/NST 33 WK NST Reason for Visit Obesity affecting pr egnancy Supervision of high risk , antepartum Asthma Obesity affecting Supervision of high risk , antepartum Fibroid uterus Infertility Seasonal allergies Spotting Asthma Difficulty swallowing Obesity affecting Supervision of high risk , antepartum Fibroid uterus Infertility Seasonal allergies Spotting Anemia in preg-unspec Obesity affecting Supervision of high risk , antepartum Infertility Anemia in preg-unspec Asthma Difficulty swallowing Obesity affecting Supervision of high risk , antepartum Fibroid uterus Infertility Seasonal allergies Spotting Transient hypertension of Gestational hypertension Anemia in preg-unspec Asthma Difficulty swallowing Gestational hypertension Obesity affecting Supervision of high risk , antepartum Fibroid uterus Infertility Seasonal allergies Spotting Anemia in preg-unspec Asthma Difficulty swallowing Gestational hypertension Obesity affecting Supervision of high risk , antepartum Fibroid uterus Infertility Seasonal allergies Spotting Anemia in preg-unspec Asthma Difficulty swallowing Gestational hypertension Obesity affecting Supervision of high risk , antepartum Fibroid uterus Infertility Seasonal allergies Spotting Anemia in preg-unspec Asthma 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 Difficulty swallowing Gestational hypertension Obesity affecting Supervision of high risk , antepartum Anemia in preg-unspec Asthma 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 Depression with anxiety Difficulty swallowing Gestational hypertension Obesity affecting Supervision of high risk , antepartum Chief Complaint 18 WK OB 22 WK OB 26 WK OB E ORDERS 29 WK OB 31 WK OB R/O PRE ECLAMPSIA R/O PRE ECLAMPSIA CELESTONE NST 32 WK OB/NST [place]; WEEKLY SCAN 32 WK NST 33 WK OB/NST 33 WK NST [place]; WEEKLY SCAN 34 WK OB/NST Reason for Visit Obesity affecting pr egnancy Supervision of high risk , antepartum Asthma Obesity affecting Supervision of high risk , antepartum Fibroid uterus Infertility Seasonal allergies Spotting Asthma Difficulty swallowing Obesity affecting Supervision of high risk , antepartum Fibroid uterus Infertility Seasonal allergies Spotting Anemia in preg-unspec Obesity affecting Supervision of high risk , antepartum Infertility Anemia in preg-unspec Asthma Difficulty swallowing Obesity affecting Supervision of high risk , antepartum Fibroid uterus Infertility Seasonal allergies Spotting Transient hypertension of Gestational hypertension Anemia in preg-unspec Asthma Difficulty swallowing Gestational hypertension Obesity affecting Supervision of high risk , antepartum Fibroid uterus Infertility Seasonal allergies Spotting Anemia in preg-unspec Asthma Difficulty swallowing Gestational hypertension Obesity affecting Supervision of high risk , antepartum Fibroid uterus Infertility Seasonal allergies Spotting Anemia in preg-unspec Asthma Difficulty swallowing Gestational hypertension Obesity affecting Supervision of high risk , antepartum Fibroid uterus Infertility Seasonal allergies Spotting Anemia in preg-unspec Asthma 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 Difficulty swallowing Gestational hypertension Obesity affecting Supervision of high risk , antepartum Anemia in preg-unspec Asthma 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 Depression with anxiety Difficulty swallowing Gestational hypertension Obesity affecting Supervision of high risk , antepartum Anemia in preg-unspec Asthma 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 Depression with anxiety Difficulty swallowing Gestational hypertension Obesity affecting Supervision of high risk , antepartum Chief Complaint 18 WK OB 22 WK OB 26 WK OB E ORDERS 29 WK OB 31 WK OB R/O PRE ECLAMPSIA R/O PRE ECLAMPSIA CELESTONE NST 32 WK OB/NST [place]; WEEKLY SCAN 32 WK NST 33 WK OB/NST 33 WK NST [place]; WEEKLY SCAN 34 WK OB/NST 34 WK NST [place]; WEEKLY SCAN Reason for Visit Obesity affecting pr egnancy Supervision of high risk , antepartum Asthma Obesity affecting Supervision of high risk , antepartum Fibroid uterus Infertility Seasonal allergies Spotting Asthma Difficulty swallowing Obesity affecting Supervision of high risk , antepartum Fibroid uterus Infertility Seasonal allergies Spotting Anemia in preg-unspec Obesity affecting Supervision of high risk , antepartum Infertility Anemia in preg-unspec Asthma Difficulty swallowing Obesity affecting Supervision of high risk , antepartum Fibroid uterus Infertility Seasonal allergies Spotting Transient hypertension of Gestational hypertension Anemia in preg-unspec Asthma Difficulty swallowing Gestational hypertension Obesity affecting Supervision of high risk , antepartum Fibroid uterus Infertility Seasonal allergies Spotting Anemia in preg-unspec Asthma Difficulty swallowing Gestational hypertension Obesity affecting Supervision of high risk , antepartum Fibroid uterus Infertility Seasonal allergies Spotting Anemia in preg-unspec Asthma Difficulty swallowing Gestational hypertension Obesity affecting Supervision of high risk , antepartum Fibroid uterus Infertility Seasonal allergies Spotting Anemia in preg-unspec Asthma 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 Difficulty swallowing Gestational hypertension Obesity affecting Supervision of high risk , antepartum Anemia in preg-unspec Asthma 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 Depression with anxiety Difficulty swallowing Gestational hypertension Obesity affecting Supervision of high risk , antepartum Anemia in preg-unspec Asthma 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 Depression with anxiety Difficulty swallowing Gestational hypertension Obesity affecting Supervision of high risk , antepartum Anemia in preg-unspec Asthma 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 Depression with anxiety Difficulty swallowing Gestational hypertension Obesity affecting Supervision of high risk , antepartum Chief Complaint 18 WK OB 22 WK OB 26 WK OB E ORDERS 29 WK OB 31 WK OB R/O PRE ECLAMPSIA R/O PRE ECLAMPSIA CELESTONE NST 32 WK OB/NST [place]; WEEKLY SCAN 32 WK NST 33 WK OB/NST 33 WK NST [place]; WEEKLY SCAN 34 WK OB/NST 34 WK NST [place]; WEEKLY SCAN 35 WK OB/NST Reason for Visit Obesity affecting pr egnancy Supervision of high risk , antepartum Asthma Obesity affecting Supervision of high risk , antepartum Fibroid uterus Infertility Seasonal allergies Spotting Asthma Difficulty swallowing Obesity affecting Supervision of high risk , antepartum Fibroid uterus Infertility Seasonal allergies Spotting Anemia in preg-unspec Obesity affecting Supervision of high risk , antepartum Infertility Anemia in preg-unspec Asthma Difficulty swallowing Obesity affecting Supervision of high risk , antepartum Fibroid uterus Infertility Seasonal allergies Spotting Transient hypertension of Gestational hypertension Anemia in preg-unspec Asthma Difficulty swallowing Gestational hypertension Obesity affecting Supervision of high risk , antepartum Fibroid uterus Infertility Seasonal allergies Spotting Anemia in preg-unspec Asthma Difficulty swallowing Gestational hypertension Obesity affecting Supervision of high risk , antepartum Fibroid uterus Infertility Seasonal allergies Spotting Anemia in preg-unspec Asthma Difficulty swallowing Gestational hypertension Obesity affecting Supervision of high risk , antepartum Fibroid uterus Infertility Seasonal allergies Spotting Anemia in preg-unspec Asthma 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 Difficulty swallowing Gestational hypertension Obesity affecting Supervision of high risk , antepartum Anemia in preg-unspec Asthma 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 Depression with anxiety Difficulty swallowing Gestational hypertension Obesity affecting Supervision of high risk , antepartum Anemia in preg-unspec Asthma 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 Depression with anxiety Difficulty swallowing Gestational hypertension Obesity affecting Supervision of high risk , antepartum Anemia in preg-unspec Asthma 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 Depression with anxiety Difficulty swallowing Gestational hypertension Obesity affecting Supervision of high risk , antepartum Anemia in preg-unspec Asthma Breech presentation 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 Depression with anxiety Difficulty swallowing Gestational hypertension Obesity affecting Supervision of high risk , antepartum Chief Complaint 22 WK OB 26 WK OB E ORDERS 29 WK OB 31 WK OB R/O PRE ECLAMPSIA R/O PRE ECLAMPSIA CELESTONE NST 32 WK OB/NST [place]; WEEKLY SCAN 32 WK NST 33 WK OB/NST 33 WK NST [place]; WEEKLY SCAN 34 WK OB/NST 34 WK NST [place]; WEEKLY SCAN 35 WK OB/NST 35 WK EST OB/NST GROWTH 36 WK OB/NST Reason for Visit Asthma Obesity affecting Supervision of high risk , antepartum Fibroid uterus Infertility Seasonal allergies Spotting Asthma Difficulty swallowing Obesity affecting Supervision of high risk , antepartum Fibroid uterus Infertility Seasonal allergies Spotting Anemia in preg-unspec Obesity affecting Supervision of high risk , antepartum Infertility Anemia in preg-unspec Asthma Difficulty swallowing Obesity affecting Supervision of high risk , antepartum Fibroid uterus Infertility Seasonal allergies Spotting Transient hypertension of Gestational hypertension Anemia in preg-unspec Asthma Difficulty swallowing Gestational hypertension Obesity affecting Supervision of high risk , antepartum Fibroid uterus Infertility Seasonal allergies Spotting Anemia in preg-unspec Asthma Difficulty swallowing Gestational hypertension Obesity affecting Supervision of high risk , antepartum Fibroid uterus Infertility Seasonal allergies Spotting Anemia in preg-unspec Asthma Difficulty swallowing Gestational hypertension Obesity affecting Supervision of high risk , antepartum Fibroid uterus Infertility Seasonal allergies Spotting Anemia in preg-unspec Asthma 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 Difficulty swallowing Gestational hypertension Obesity affecting Supervision of high risk , antepartum Anemia in preg-unspec Asthma 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 Depression with anxiety Difficulty swallowing Gestational hypertension Obesity affecting Supervision of high risk , antepartum Anemia in preg-unspec Asthma 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 Depression with anxiety Difficulty swallowing Gestational hypertension Obesity affecting Supervision of high risk , antepartum Anemia in preg-unspec Asthma 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 Depression with anxiety Difficulty swallowing Gestational hypertension Obesity affecting Supervision of high risk , antepartum Anemia in preg-unspec Asthma Breech presentation 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 Depression with anxiety Difficulty swallowing Gestational hypertension Obesity affecting Supervision of high risk , antepartum Anemia in preg-unspec Asthma Breech presentation 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 Depression with anxiety Difficulty swallowing Gestational hypertension Obesity affecting Supervision of high risk , antepartum Anemia in preg-unspec Asthma Breech presentation 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 Depression with anxiety Difficulty swallowing Gestational hypertension Obesity affecting Supervision of high risk , antepartum Chief Complaint 22 WK OB 26 WK OB E ORDERS 29 WK OB 31 WK OB R/O PRE ECLAMPSIA R/O PRE ECLAMPSIA CELESTONE NST 32 WK OB/NST [place]; WEEKLY SCAN 32 WK NST 33 WK OB/NST 33 WK NST [place]; WEEKLY SCAN 34 WK OB/NST 34 WK NST [place]; WEEKLY SCAN 35 WK OB/NST 35 WK EST OB/NST GROWTH 36 WK OB/NST 36 WK NST [place] ob / nst Check baby position C SECTION PRIMARY C SECTION C SECTION C SECTION C SECTION 1 WK INCISION CHECK Consult INT LABS Reason for Visit Asthma Obesity affecting Supervision of high risk , antepartum Fibroid uterus Infertility Seasonal allergies Spotting Asthma Obesity affecting Supervision of high risk , antepartum Difficulty swallowing Fibroid uterus Infertility Seasonal allergies Spotting Anemia in preg-unspec Obesity affecting Supervision of high risk , antepartum Infertility Anemia in preg-unspec Asthma Obesity affecting Supervision of high risk , antepartum Difficulty swallowing Fibroid uterus Infertility Seasonal allergies Spotting Transient hypertension of Gestational hypertension Anemia in preg-unspec Asthma Gestational hypertension Obesity affecting Supervision of high risk , antepartum Difficulty swallowing Fibroid uterus Infertility Seasonal allergies Spotting Anemia in preg-unspec Asthma Gestational hypertension Obesity affecting Supervision of high risk , antepartum Difficulty swallowing Fibroid uterus Infertility Seasonal allergies Spotting Anemia in preg-unspec Asthma Gestational hypertension Obesity affecting Supervision of high risk , antepartum Difficulty swallowing Fibroid uterus Infertility Seasonal allergies Spotting Anemia in preg-unspec Asthma 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 Gestational hypertension Obesity affecting Supervision of high risk , antepartum Difficulty swallowing Anemia in preg-unspec Asthma 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 Depression with anxiety Gestational hypertension Obesity affecting Supervision of high risk , antepartum Difficulty swallowing Anemia in preg-unspec Asthma 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 Depression with anxiety Gestational hypertension Obesity affecting Supervision of high risk , antepartum Difficulty swallowing Anemia in preg-unspec Asthma 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 Depression with anxiety Gestational hypertension Obesity affecting Supervision of high risk , antepartum Difficulty swallowing Anemia in preg-unspec Asthma Breech presentation 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 Depression with anxiety Gestational hypertension Obesity affecting Supervision of high risk , antepartum Difficulty swallowing Anemia in preg-unspec Asthma Breech presentation 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 Depression with anxiety Gestational hypertension Obesity affecting Supervision of high risk , antepartum Difficulty swallowing Anemia in preg-unspec Asthma Breech presentation 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 Depression with anxiety Gestational hypertension Obesity affecting Supervision of high risk , antepartum Difficulty swallowing Anemia in preg-unspec Asthma 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 Depression with anxiety Gestational hypertension Obesity affecting Supervision of high risk , antepartum Difficulty swallowing Anemia in preg-unspec Asthma Breech presentation 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 Depression with anxiety Gestational hypertension Obesity affecting Supervision of high risk , antepartum Difficulty swallowing Anemia in preg-unspec Asthma Breech presentation 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 Depression with anxiety Gestational hypertension Obesity affecting Supervision of high risk , antepartum Difficulty swallowing Anemia in preg-unspec Asthma Breech presentation 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 Depression with anxiety Gestational hypertension Obesity affecting Severely increased blood pressure and swelling during Status post section Supervision of high risk , antepartum Difficulty swallowing Depression with anxiety Gestational hypertension Status post section Postop check Difficulty swallowing Chief Complaint 33 WK NST [place]; WEEKLY SCAN 34 WK OB/NST 34 WK NST [place]; WEEKLY SCAN 35 WK OB/NST 35 WK EST OB/NST GROWTH 36 WK OB/NST 36 WK NST [place] ob / nst Check baby position C SECTION PRIMARY C SECTION C SECTION C SECTION C SECTION 1 WK INCISION CHECK Consult INT LABS 2 WK FU Reason for Visit Anemia in preg-unspe c Asthma 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 Depression with anxiety Gestational hypertension Obesity affecting Supervision of high risk , antepartum Difficulty swallowing Anemia in preg-unspec Asthma 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 Depression with anxiety Gestational hypertension Obesity affecting Supervision of high risk , antepartum Difficulty swallowing Anemia in preg-unspec Asthma 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 Depression with anxiety Gestational hypertension Obesity affecting Supervision of high risk , antepartum Difficulty swallowing Anemia in preg-unspec Asthma Breech presentation 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 Depression with anxiety Gestational hypertension Obesity affecting Supervision of high risk , antepartum Difficulty swallowing Anemia in preg-unspec Asthma Breech presentation 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 Depression with anxiety Gestational hypertension Obesity affecting Supervision of high risk , antepartum Difficulty swallowing Anemia in preg-unspec Asthma Breech presentation 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 Depression with anxiety Gestational hypertension Obesity affecting Supervision of high risk , antepartum Difficulty swallowing Anemia in preg-unspec Asthma 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 Depression with anxiety Gestational hypertension Obesity affecting Supervision of high risk , antepartum Difficulty swallowing Anemia in preg-unspec Asthma Breech presentation 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 Depression with anxiety Gestational hypertension Obesity affecting Supervision of high risk , antepartum Difficulty swallowing Anemia in preg-unspec Asthma Breech presentation 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 Depression with anxiety Gestational hypertension Obesity affecting Supervision of high risk , antepartum Difficulty swallowing Anemia in preg-unspec Asthma Breech presentation 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 Depression with anxiety Gestational hypertension Obesity affecting Severely increased blood pressure and swelling during Status post section Supervision of high risk , antepartum Difficulty swallowing Depression with anxiety Gestational hypertension Status post section Postop check Difficulty swallowing Gestational hypertension care and examination 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 Admit Date 13 wk ob June 16, 2024 2:53pm heartbeat check per KW July 01, 2024 3:06pm 17 WK OB July 16, 2024 11: 22am 6 M FU August 10, 2024 2:2 8pm 21 WK OB August 11, 2024 2:2 4pm 25 wk ob September 09, 2024 3:23p m 28wk ob/glucose September 30, 2024 1:25 pm Reason for Visit Admit Date 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 May 2:53pm Constipation June 16, 2024 2:53pm Depression with anxiety June 16, 025 2:53pm Hx of section June 16 2:53pm Obesity affecting May 2:53pm June 16, 2024 2:53pm Supervision of high risk , ante June 16, 2024 2:53pm Asthma June 16, 2024 2:53pm Eosinophilic esophagitis June 16, 2024 2:53pm Hypertension June 16, 2024 2:53pm Multiple food allergies June 16, 025 2:53pm Bleeding in early May 2:53pm 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 July 01, 2024 3:06pm Constipation July 01, 2024 3:0 6pm Depression with anxiety July 01, 2024 3:06pm Hx of section July 01, 2024 3:06pm Obesity affecting July 01, 2024 3:06pm July 01, 2024 3:0 6pm Supervision of high risk , ante July 01, 2024 3:06pm Asthma July 01, 2024 3:0 6pm Eosinophilic esophagitis July 01 3:06pm Hypertension July 01, 2024 3:0 6pm Multiple food allergies July 01, 2024 3:06pm Bleeding in early July 01, 2024 3:06pm 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 July 16, 2024 11:22am Constipation July 16, 2024 11: 22am Depression with anxiety July 16, 2024 11:22am Hx of section July 16, 2024 11:22am Obesity affecting July 16, 2024 11:22am July 16, 2024 11: 22am Supervision of high risk , ante July 16, 2024 11:22am Asthma July 16, 2024 11: 22am Eosinophilic esophagitis July 16 11:22am Hypertension July 16, 2024 11: 22am Multiple food allergies July 16, 2024 11:22am Bleeding in early July 16, 2024 11:22am Eosinophilic esophagitis August 10 2:28pm 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 August 11, 2024 2:24pm Constipation August 11, 2024 2:2 4pm Depression with anxiety August 11, 2024 2:24pm Hx of section August 11, 2024 2:24pm Obesity affecting August 11, 2024 2:24pm August 11, 2024 2:2 4pm Supervision of high risk , ante August 11, 2024 2:24pm Asthma August 11, 2024 2:2 4pm Eosinophilic esophagitis August 11 2:24pm Hypertension August 11, 2024 2:2 4pm Multiple food allergies August 11, 2024 2:24pm Bleeding in early August 11, 2024 2:24pm 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 September 09 3:23pm Constipation September 09, 2024 3:23p m Depression with anxiety September 09, 2024 3 :23pm Hx of section September 09, 2024 3: 23pm Obesity affecting September 09 3:23pm September 09, 2024 3:23p m Supervision of high risk , ante September 09, 2024 3:23pm Asthma September 09, 2024 3:23p m Eosinophilic esophagitis September 09, 2024 3:23pm Hypertension September 09, 2024 3:23p m Multiple food allergies September 09, 2024 3 :23pm Bleeding in early September 09 3:23pm 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 September 30, 2 025 1:25pm Depression with anxiety September 30, 2024 1:25pm Hx of section September 30, 2024 1 :25pm Obesity affecting September 30, 2 025 1:25pm September 30, 2024 1:25 pm Supervision of high risk , ante September 30, 2024 1:25pm Hypertension September 30, 2024 1:25 pm Chief Complaint Admit Date 13 wk ob June 16, 2024 2:53pm heartbeat check per KW July 01, 2024 3:06pm 17 WK OB July 16, 2024 11: 22am 6 M FU August 10, 2024 2:2 8pm 21 WK OB August 11, 2024 2:2 4pm 25 wk ob September 09, 2024 3:23p m 28wk ob/glucose September 30, 2024 1:25 pm 30wk ob *csection JV October 13, 2024 1:3 9pm Reason for Visit Admit Date 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 May 2:53pm Constipation June 16, 2024 2:53pm Depression with anxiety June 16 025 2:53pm Hx of section June 16 2:53pm Obesity affecting May 2:53pm June 16, 2024 2:53pm Supervision of high risk , ante June 16, 2024 2:53pm Asthma June 16, 2024 2:53pm Eosinophilic esophagitis June 16, 2024 2:53pm Hypertension June 16, 2024 2:53pm Multiple food allergies June 16, 025 2:53pm Bleeding in early May 2:53pm 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 July 01, 2024 3:06pm Constipation July 01, 2024 3:0 6pm Depression with anxiety July 01, 2024 3:06pm Hx of section July 01, 2024 3:06pm Obesity affecting July 01, 2024 3:06pm July 01, 2024 3:0 6pm Supervision of high risk , ante July 01, 2024 3:06pm Asthma July 01, 2024 3:0 6pm Eosinophilic esophagitis July 01 3:06pm Hypertension July 01, 2024 3:0 6pm Multiple food allergies July 01, 2024 3:06pm Bleeding in early July 01, 2024 3:06pm 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 July 16, 2024 11:22am Constipation July 16, 2024 11: 22am Depression with anxiety July 16, 2024 11:22am Hx of section July 16, 2024 11:22am Obesity affecting July 16, 2024 11:22am July 16, 2024 11: 22am Supervision of high risk , ante July 16, 2024 11:22am Asthma July 16, 2024 11: 22am Eosinophilic esophagitis July 16 11:22am Hypertension July 16, 2024 11: 22am Multiple food allergies July 16, 2024 11:22am Bleeding in early July 16, 2024 11:22am Eosinophilic esophagitis August 10 2:28pm 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 August 11, 2024 2:24pm Constipation August 11, 2024 2:2 4pm Depression with anxiety August 11, 2024 2:24pm Hx of section August 11, 2024 2:24pm Obesity affecting August 11, 2024 2:24pm August 11, 2024 2:2 4pm Supervision of high risk , ante August 11, 2024 2:24pm Asthma August 11, 2024 2:2 4pm Eosinophilic esophagitis August 11 2:24pm Hypertension August 11, 2024 2:2 4pm Multiple food allergies August 11, 2024 2:24pm Bleeding in early August 11, 2024 2:24pm 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 September 09 3:23pm Constipation September 09, 2024 3:23p m Depression with anxiety September 09, 2024 3 :23pm Hx of section September 09, 2024 3: 23pm Obesity affecting September 09 3:23pm September 09, 2024 3:23p m Supervision of high risk , ante September 09, 2024 3:23pm Asthma September 09, 2024 3:23p m Eosinophilic esophagitis September 09, 2024 3:23pm Hypertension September 09, 2024 3:23p m Multiple food allergies September 09, 2024 3 :23pm Bleeding in early September 09 3:23pm 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 September 30, 2 025 1:25pm Depression with anxiety September 30, 2024 1:25pm Hx of section September 30, 2024 1 :25pm Obesity affecting September 30, 2 025 1:25pm September 30, 2024 1:25 pm Supervision of high risk , ante September 30, 2024 1:25pm Hypertension September 30, 2024 1:25 pm Anemia October 13, 2024 1:39 pm 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 October 13, 2 025 1:39pm Constipation October 13, 2024 1:39 pm Depression with anxiety October 13, 2024 1:39pm Hx of section October 13, 2024 1 :39pm Obesity affecting October 13, 2 025 1:39pm October 13, 2024 1:39 pm Supervision of high risk , ante October 13, 2024 1:39pm Asthma October 13, 2024 1:39 pm Eosinophilic esophagitis October 13, 2024 1:39pm Hypertension October 13, 2024 1:39 pm Multiple food allergies October 13, 2024 1:39pm Chief Complaint Admit Date heartbeat check per KW July 01, 2024 3:06pm 17 WK OB July 16, 2024 11: 22am 6 M FU August 10, 2024 2:2 8pm 21 WK OB August 11, 2024 2:2 4pm 25 wk ob September 09, 2024 3:23p m 28wk ob/glucose September 30, 2024 1:25 pm 30wk ob *csection JV October 13, 2024 1:3 9pm 32 WK NST ONLY October 26, 2024 1:57p m Reason for Visit Admit Date 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 July 01, 2024 3:06pm Constipation July 01, 2024 3:0 6pm Depression with anxiety July 01, 2024 3:06pm Hx of section July 01, 2024 3:06pm Obesity affecting July 01, 2024 3:06pm July 01, 2024 3:0 6pm Supervision of high risk , ante July 01, 2024 3:06pm Asthma July 01, 2024 3:0 6pm Eosinophilic esophagitis July 01 3:06pm Hypertension July 01, 2024 3:0 6pm Multiple food allergies July 01, 2024 3:06pm Bleeding in early July 01, 2024 3:06pm 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 July 16, 2024 11:22am Constipation July 16, 2024 11: 22am Depression with anxiety July 16, 2024 11:22am Hx of section July 16, 2024 11:22am Obesity affecting July 16, 2024 11:22am July 16, 2024 11: 22am Supervision of high risk , ante July 16, 2024 11:22am Asthma July 16, 2024 11: 22am Eosinophilic esophagitis July 16 11:22am Hypertension July 16, 2024 11: 22am Multiple food allergies July 16, 2024 11:22am Bleeding in early July 16, 2024 11:22am Eosinophilic esophagitis August 10 2:28pm 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 August 11, 2024 2:24pm Constipation August 11, 2024 2:2 4pm Depression with anxiety August 11, 2024 2:24pm Hx of section August 11, 2024 2:24pm Obesity affecting August 11, 2024 2:24pm August 11, 2024 2:2 4pm Supervision of high risk , ante August 11, 2024 2:24pm Asthma August 11, 2024 2:2 4pm Eosinophilic esophagitis August 11 2:24pm Hypertension August 11, 2024 2:2 4pm Multiple food allergies August 11, 2024 2:24pm Bleeding in early August 11, 2024 2:24pm 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 September 09 3:23pm Constipation September 09, 2024 3:23p m Depression with anxiety September 09, 2024 3 :23pm Hx of section September 09, 2024 3: 23pm Obesity affecting September 09 3:23pm September 09, 2024 3:23p m Supervision of high risk , ante September 09, 2024 3:23pm Asthma September 09, 2024 3:23p m Eosinophilic esophagitis September 09, 2024 3:23pm Hypertension September 09, 2024 3:23p m Multiple food allergies September 09, 2024 3 :23pm Bleeding in early September 09 3:23pm 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 September 30, 2 025 1:25pm Depression with anxiety September 30, 2024 1:25pm Hx of section September 30, 2024 1 :25pm Obesity affecting September 30, 2 025 1:25pm September 30, 2024 1:25 pm Supervision of high risk , ante September 30, 2024 1:25pm Hypertension September 30, 2024 1:25 pm Anemia October 13, 2024 1:39 pm 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 October 13, 2 025 1:39pm Depression with anxiety October 13, 2024 1:39pm Hx of section October 13, 2024 1 :39pm Obesity affecting October 13, 2 025 1:39pm October 13, 2024 1:39 pm Supervision of high risk , ante October 13, 2024 1:39pm Asthma October 13, 2024 1:39 pm Hypertension October 13, 2024 1:39 pm Multiple food allergies October 13, 2024 1:39pm Anemia October 26, 2024 1:57p m 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 October 26 1:57pm Constipation October 26, 2024 1:57p m Contraception management October 26, 2024 1:57pm Depression with anxiety October 26, 2024 1 :57pm Hx of section October 26, 2024 1: 57pm Obesity affecting October 26 1:57pm October 26, 2024 1:57p m Supervision of high risk , ante October 26, 2024 1:57pm Asthma October 26, 2024 1:57p m Eosinophilic esophagitis October 26, 2024 1:57pm Hypertension October 26, 2024 1:57p m Multiple food allergies October 26, 2024 1 :57pm Chief Complaint Admit Date heartbeat check per KW July 01, 2024 3:06pm 17 WK OB July 16, 2024 11: 22am 6 M FU August 10, 2024 2:2 8pm 21 WK OB August 11, 2024 2:2 4pm 25 wk ob September 09, 2024 3:23p m 28wk ob/glucose September 30, 2024 1:25 pm 30wk ob *csection JV October 13, 2024 1:3 9pm 32 WK NST ONLY October 26, 2024 1:57p m WELL BEING October 26, 2024 2:35p m REPEAT October 28, 2024 5:02 pm REPEAT October 28, 2024 6:06 pm REPEAT October 29, 2024 7:26 am Reason for Visit Admit Date 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 July 01, 2024 3:06pm Constipation July 01, 2024 3:0 6pm Depression with anxiety July 01, 2024 3:06pm Hx of section July 01, 2024 3:06pm Obesity affecting March 13th, 2025 3:06pm July 01, 2024 3:0 6pm Supervision of high risk , ante July 01, 2024 3:06pm Asthma July 01, 2024 3:0 6pm Eosinophilic esophagitis July 01 3:06pm Hypertension July 01, 2024 3:0 6pm Multiple food allergies July 01, 2024 3:06pm Bleeding in early July 01, 2024 3:06pm 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 July 16, 2024 11:22am Constipation July 16, 2024 11: 22am Depression with anxiety July 16, 2024 11:22am Hx of section July 16, 2024 11:22am Obesity affecting July 16, 2024 11:22am July 16, 2024 11: 22am Supervision of high risk , ante July 16, 2024 11:22am Asthma July 16, 2024 11: 22am Eosinophilic esophagitis July 16 11:22am Hypertension July 16, 2024 11: 22am Multiple food allergies July 16, 2024 11:22am Bleeding in early July 16, 2024 11:22am Eosinophilic esophagitis August 10 2:28pm 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 August 11, 2024 2:24pm Constipation August 11, 2024 2:2 4pm Depression with anxiety August 11, 2024 2:24pm Hx of section August 11, 2024 2:24pm Obesity affecting August 11, 2024 2:24pm August 11, 2024 2:2 4pm Supervision of high risk , ante August 11, 2024 2:24pm Asthma August 11, 2024 2:2 4pm Eosinophilic esophagitis August 11 2:24pm Hypertension August 11, 2024 2:2 4pm Multiple food allergies August 11, 2024 2:24pm Bleeding in early August 11, 2024 2:24pm 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 September 09 3:23pm Constipation September 09, 2024 3:23p m Depression with anxiety September 09, 2024 3 :23pm Hx of section September 09, 2024 3: 23pm Obesity affecting September 09 3:23pm September 09, 2024 3:23p m Supervision of high risk , ante September 09, 2024 3:23pm Asthma September 09, 2024 3:23p m Eosinophilic esophagitis September 09, 2024 3:23pm Hypertension September 09, 2024 3:23p m Multiple food allergies September 09, 2024 3 :23pm Bleeding in early September 09 3:23pm 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 September 30, 2 025 1:25pm Depression with anxiety September 30, 2024 1:25pm Hx of section September 30, 2024 1 :25pm Obesity affecting September 30, 2 025 1:25pm September 30, 2024 1:25 pm Supervision of high risk , ante September 30, 2024 1:25pm Hypertension September 30, 2024 1:25 pm Anemia October 13, 2024 1:39 pm 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 October 13, 2 025 1:39pm Depression with anxiety October 13, 2024 1:39pm Hx of section October 13, 2024 1 :39pm Obesity affecting October 13, 2 025 1:39pm October 13, 2024 1:39 pm Supervision of high risk , ante October 13, 2024 1:39pm Asthma October 13, 2024 1:39 pm Hypertension October 13, 2024 1:39 pm Multiple food allergies October 13, 2024 1:39pm 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 October 26 1:57pm Depression with anxiety October 26, 2024 1 :57pm Hx of section October 26, 2024 1: 57pm Obesity affecting October 26 1:57pm October 26, 2024 1:57p m Supervision of high risk , ante October 26, 2024 1:57pm Asthma October 26, 2024 1:57p m Eosinophilic esophagitis October 26, 2024 1:57pm Hypertension October 26, 2024 1:57p m Multiple food allergies October 26, 2024 1 :57pm Anemia October 28, 2024 5:02 pm 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 October 28, 2 025 5:02pm Contraception management October 28, 2024 5:02pm bradycardia, antepartum condition or complication October 28, 2024 5:02pm Hx of section October 28, 2024 5 :02pm Obesity affecting October 28, 2 025 5:02pm October 28, 2024 5:02 pm Status post section October 28, 2024 5:02pm Supervision of high risk , ante October 28, 2024 5:02pm Hypertension October 28, 2024 5:02 pm Chief Complaint Admit Date 17 WK OB July 16, 2024 11: 22am 6 M FU August 10, 2024 2:2 8pm 21 WK OB August 11, 2024 2:2 4pm 25 wk ob September 09, 2024 3:23p m 28wk ob/glucose September 30, 2024 1:25 pm 30wk ob *csection JV October 13, 2024 1:3 9pm 32 WK NST ONLY October 26, 2024 1:57p m WELL BEING October 26, 2024 2:35p m REPEAT October 28, 2024 5:02 pm REPEAT October 28, 2024 6:06 pm REPEAT October 29, 2024 7:26 am Reason for Visit Admit Date 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 July 16, 2024 11:22am Constipation July 16, 2024 11: 22am Depression with anxiety July 16, 2024 11:22am Hx of section July 16, 2024 11:22am Obesity affecting July 16, 2024 11:22am July 16, 2024 11: 22am Supervision of high risk , ante July 16, 2024 11:22am Asthma July 16, 2024 11: 22am Eosinophilic esophagitis July 16 11:22am Hypertension July 16, 2024 11: 22am Multiple food allergies July 16, 2024 11:22am Bleeding in early July 16, 2024 11:22am Eosinophilic esophagitis August 10 2:28pm 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 August 11, 2024 2:24pm Constipation August 11, 2024 2:2 4pm Depression with anxiety August 11, 2024 2:24pm Hx of section August 11, 2024 2:24pm Obesity affecting August 11, 2024 2:24pm August 11, 2024 2:2 4pm Supervision of high risk , ante August 11, 2024 2:24pm Asthma August 11, 2024 2:2 4pm Eosinophilic esophagitis August 11 2:24pm Hypertension August 11, 2024 2:2 4pm Multiple food allergies August 11, 2024 2:24pm Bleeding in early August 11, 2024 2:24pm 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 September 09 3:23pm Constipation September 09, 2024 3:23p m Depression with anxiety September 09, 2024 3 :23pm Hx of section September 09, 2024 3: 23pm Obesity affecting September 09 3:23pm September 09, 2024 3:23p m Supervision of high risk , ante September 09, 2024 3:23pm Asthma September 09, 2024 3:23p m Eosinophilic esophagitis September 09, 2024 3:23pm Hypertension September 09, 2024 3:23p m Multiple food allergies September 09, 2024 3 :23pm Bleeding in early September 09 3:23pm 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 September 30, 2 025 1:25pm Depression with anxiety September 30, 2024 1:25pm Hx of section September 30, 2024 1 :25pm Obesity affecting September 30, 2 025 1:25pm September 30, 2024 1:25 pm Supervision of high risk , ante September 30, 2024 1:25pm Hypertension September 30, 2024 1:25 pm Anemia October 13, 2024 1:39 pm 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 October 13, 2 025 1:39pm Depression with anxiety October 13, 2024 1:39pm Hx of section October 13, 2024 1 :39pm Obesity affecting October 13, 2 025 1:39pm October 13, 2024 1:39 pm Supervision of high risk , ante October 13, 2024 1:39pm Asthma October 13, 2024 1:39 pm Hypertension October 13, 2024 1:39 pm Multiple food allergies October 13, 2024 1:39pm 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 October 26 1:57pm Depression with anxiety October 26, 2024 1 :57pm Hx of section October 26, 2024 1: 57pm Obesity affecting October 26 1:57pm October 26, 2024 1:57p m Supervision of high risk , ante October 26, 2024 1:57pm Asthma October 26, 2024 1:57p m Eosinophilic esophagitis October 26, 2024 1:57pm Hypertension October 26, 2024 1:57p m Multiple food allergies October 26, 2024 1 :57pm Anemia October 28, 2024 5:02 pm 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 October 28, 2 025 5:02pm Contraception management October 28, 2024 5:02pm bradycardia, antepartum condition or complication October 28, 2024 5:02pm Hx of section October 28, 2024 5 :02pm Obesity affecting October 28, 2 025 5:02pm October 28, 2024 5:02 pm Status post section October 28, 2024 5:02pm Supervision of high risk , ante October 28, 2024 5:02pm Hypertension October 28, 2024 5:02 pm Chief Complaint Admit Date 17 WK OB July 16, 2024 11: 22am 6 M FU August 10, 2024 2:2 8pm 21 WK OB August 11, 2024 2:2 4pm 25 wk ob September 09, 2024 3:23p m 28wk ob/glucose September 30, 2024 1:25 pm 30wk ob *csection JV October 13, 2024 1:3 9pm 32 WK NST ONLY October 26, 2024 1:57p m WELL BEING October 26, 2024 2:35p m REPEAT October 28, 2024 5:02 pm REPEAT October 28, 2024 6:06 pm REPEAT October 29, 2024 7:26 am UTI November 04, 2024 3:00 pm Reason for Visit Admit Date 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 July 16, 2024 11:22am Constipation July 16, 2024 11: 22am Depression with anxiety July 16, 2024 11:22am Hx of section July 16, 2024 11:22am Obesity affecting July 16, 2024 11:22am July 16, 2024 11: 22am Supervision of high risk , ante July 16, 2024 11:22am Asthma July 16, 2024 11: 22am Eosinophilic esophagitis July 16 11:22am Hypertension July 16, 2024 11: 22am Multiple food allergies July 16, 2024 11:22am Bleeding in early July 16, 2024 11:22am Eosinophilic esophagitis August 10 2:28pm 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 August 11, 2024 2:24pm Constipation August 11, 2024 2:2 4pm Depression with anxiety August 11, 2024 2:24pm Hx of section August 11, 2024 2:24pm Obesity affecting August 11, 2024 2:24pm August 11, 2024 2:2 4pm Supervision of high risk , ante August 11, 2024 2:24pm Asthma August 11, 2024 2:2 4pm Eosinophilic esophagitis August 11 2:24pm Hypertension August 11, 2024 2:2 4pm Multiple food allergies August 11, 2024 2:24pm Bleeding in early August 11, 2024 2:24pm 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 September 09 3:23pm Constipation September 09, 2024 3:23p m Depression with anxiety September 09, 2024 3 :23pm Hx of section September 09, 2024 3: 23pm Obesity affecting September 09 3:23pm September 09, 2024 3:23p m Supervision of high risk , ante September 09, 2024 3:23pm Asthma September 09, 2024 3:23p m Eosinophilic esophagitis September 09, 2024 3:23pm Hypertension September 09, 2024 3:23p m Multiple food allergies September 09, 2024 3 :23pm Bleeding in early September 09 3:23pm 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 September 30, 2 025 1:25pm Depression with anxiety September 30, 2024 1:25pm Hx of section September 30, 2024 1 :25pm Obesity affecting September 30, 2 025 1:25pm September 30, 2024 1:25 pm Supervision of high risk , ante September 30, 2024 1:25pm Hypertension September 30, 2024 1:25 pm Anemia October 13, 2024 1:39 pm 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 October 13, 2 025 1:39pm Depression with anxiety October 13, 2024 1:39pm Hx of section October 13, 2024 1 :39pm Obesity affecting October 13, 2 025 1:39pm October 13, 2024 1:39 pm Supervision of high risk , ante October 13, 2024 1:39pm Asthma October 13, 2024 1:39 pm Hypertension October 13, 2024 1:39 pm Multiple food allergies October 13, 2024 1:39pm 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 October 26 1:57pm Depression with anxiety October 26, 2024 1 :57pm Hx of section October 26, 2024 1: 57pm Obesity affecting October 26 1:57pm October 26, 2024 1:57p m Supervision of high risk , ante October 26, 2024 1:57pm Asthma October 26, 2024 1:57p m Eosinophilic esophagitis October 26, 2024 1:57pm Hypertension October 26, 2024 1:57p m Multiple food allergies October 26, 2024 1 :57pm Anemia October 28, 2024 5:02 pm 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 October 28, 025 5:02pm Contraception management October 28, 2024 5:02pm bradycardia, antepartum condition or complication October 28, 2024 5:02pm Hx of section October 28, 2024 5 :02pm Obesity affecting October 28 025 5:02pm October 28, 2024 5:02 pm Status post section October 28, 2024 5:02pm Supervision of high risk , ante October 28, 2024 5:02pm Hypertension October 28, 2024 5:02 pm Status post section November 04, 2024 3:00pm UTI (urinary tract infection) November 04, 2024 3:00pm Chief Complaint Admit Date 17 WK OB July 16, 2024 11: 22am 6 M FU August 10, 2024 2:2 8pm 21 WK OB August 11, 2024 2:2 4pm 25 wk ob September 09, 2024 3:23p m 28wk ob/glucose September 30, 2024 1:25 pm 30wk ob *csection JV October 13, 2024 1:3 9pm 32 WK NST ONLY October 26, 2024 1:57p m WELL BEING October 26, 2024 2:35p m REPEAT October 28, 2024 5:02 pm REPEAT October 28, 2024 6:06 pm REPEAT October 29, 2024 7:26 am UTI November 04, 2024 3:00 pm 2 WK INCISION CK November 10, 2024 1:50 pm Reason for Visit Admit Date Constipation July 16, 2024 11: 22am Depression with anxiety July 16, 2024 11:22am Asthma July 16, 2024 11: 22am Eosinophilic esophagitis July 16 11:22am Hypertension July 16, 2024 11: 22am Multiple food allergies July 16, 2024 11:22am Bleeding in early July 16, 2024 11:22am 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 July 16, 2024 11:22am Hx of section July 16, 2024 11:22am Obesity affecting July 16, 2024 11:22am July 16, 2024 11: 22am Supervision of high risk , ante July 16, 2024 11:22am Eosinophilic esophagitis August 10 2:28pm Constipation August 11, 2024 2:2 4pm Depression with anxiety August 11, 2024 2:24pm Asthma August 11, 2024 2:2 4pm Eosinophilic esophagitis August 11 2:24pm Hypertension August 11, 2024 2:2 4pm Multiple food allergies August 11, 2024 2:24pm Bleeding in early August 11, 2024 2:24pm 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 August 11, 2024 2:24pm Hx of section August 11, 2024 2:24pm Obesity affecting August 11, 2024 2:24pm August 11, 2024 2:2 4pm Supervision of high risk , ante August 11, 2024 2:24pm Constipation September 09, 2024 3:23p m Depression with anxiety September 09, 2024 3 :23pm Asthma September 09, 2024 3:23p m Eosinophilic esophagitis September 09, 2024 3:23pm Hypertension September 09, 2024 3:23p m Multiple food allergies September 09, 2024 3 :23pm Bleeding in early September 09 3:23pm 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 September 09 3:23pm Hx of section September 09, 2024 3: 23pm Obesity affecting September 09 3:23pm September 09, 2024 3:23p m Supervision of high risk , ante September 09, 2024 3:23pm Depression with anxiety September 30, 2024 1:25pm Hypertension September 30, 2024 1:25 pm 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 September 30, 2 025 1:25pm Hx of section September 30, 2024 1 :25pm Obesity affecting September 30, 2 025 1:25pm September 30, 2024 1:25 pm Supervision of high risk , ante September 30, 2024 1:25pm Anemia October 13, 2024 1:39 pm Depression with anxiety October 13, 2024 1:39pm Asthma October 13, 2024 1:39 pm Hypertension October 13, 2024 1:39 pm Multiple food allergies October 13, 2024 1:39pm 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 October 13, 2 025 1:39pm Hx of section October 13, 2024 1 :39pm Obesity affecting October 13, 025 1:39pm October 13, 2024 1:39 pm Supervision of high risk , ante October 13, 2024 1:39pm Depression with anxiety October 26, 2024 1 :57pm Asthma October 26, 2024 1:57p m Eosinophilic esophagitis October 26, 2024 1:57pm Hypertension October 26, 2024 1:57p m Multiple food allergies October 26, 2024 1 :57pm 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 October 26 1:57pm Hx of section October 26, 2024 1: 57pm Obesity affecting October 26 1:57pm October 26, 2024 1:57p m Supervision of high risk , ante October 26, 2024 1:57pm Anemia October 28, 2024 5:02 pm Status post section October 28, 2024 5:02pm Hypertension October 28, 2024 5:02 pm 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 October 28, 025 5:02pm Contraception management October 28, 2024 5:02pm bradycardia, antepartum condition or complication October 28, 2024 5:02pm Hx of section October 28, 2024 5 :02pm Obesity affecting October 28 025 5:02pm October 28, 2024 5:02 pm Supervision of high risk , ante October 28, 2024 5:02pm Status post section November 04, 2024 3:00pm UTI (urinary tract infection) November 04, 2024 3:00pm Advance Directives Advance Directive Response Recorded Date/ Time Living Will No December 21, 018 10:15am Power of Career Development Counselor No December 21, 2017 10:15am Advance Directive Response Recorded Date/ Time Living Will No January 24 2 8:08am Power of Career Development Counselor No January 24, 2 022 8:08am Advance Directive Response Recorded Date/ Time Living Will No January 24 2 7:08am Power of Career Development Counselor No January 24, 022 7:08am Advance Directive Response Recorded Date/ Time Living Will No June 26, 2022 5:16pm Power of Career Development Counselor No June 26 5:16pm Advance Directive Response Recorded Date/ Time Living Will No July 26, 2022 11:07am Power of Career Development Counselor No July 26 11:07am Advance Directive Response Recorded Date/ Time Living Will No August 13, 2022 3:35pm Power of Career Development Counselor No August 13 3:35pm Advance Directive Response Recorded Date/ Time Living Will No September 04, 2022 5 :10pm Power of Career Development Counselor No September 04, 2022 5:10pm Advance Directive Response Recorded Date/ Time Living Will No December 02 10:15am Power of Career Development Counselor No December 02, 023 10:15am Advance Directive Response Recorded Date/ Time Living Will No September 14, 2023 5 :07am Do you have a Healthcare Power of Career Development Counselor? No September 14, 2023 5:07am Advance Directive Response Recorded Date/ Time Living Will No September 14, 2023 5 :07am Do you have a Healthcare Power of Career Development Counselor? No September 14, 2023 5:07am Do you have a Healthcare Power of Career Development Counselor? No October 28, 2024 6:30pm Summary Purpose Additional Source Comments Source Comments (unrecognize d section and content) In the event this informatio n is protected by the Federal Confidentiality of Alcohol and Drug Abuse Patient Records regulations: The Federal rules restrict any use of the information to criminally investigate or prosecute any alcohol or drug abuse patient.[facility] the event this information is protected by the Federal Confidentiality of Alcohol and Drug Abuse Patient Records regulations: The Federal rules restrict any use of the information to criminally investigate or prosecute any alcohol or drug abuse patient.[facility] Reason for Visit (unrecogniz ed section and content) Reason Comments Ear Pain right ear pain x 1 d ay and sinus x 4 days Reason Comments Consult Goals (unrecognized section and content) Goals may be documented in a n alternate sectionGoals may be documented in an alternate sectionGoals may be documented in an alternate section No data available for this sectionGoals may be documented in an alternate sectionGoals may be documented in an alternate sectionGoals may be documented in an alternate sectionGoals may be documented in an alternate sectionGoals may be documented in an alternate sectionGoals may be documented in an alternate sectionGoals may be documented in an alternate sectionGoals may be documented in an alternate sectionGoals may be documented in an alternate sectionGoals may be documented in an alternate sectionGoals may be documented in an alternate sectionGoals may be documented in an alternate sectionGoals may be documented in an alternate sectionGoals may be documented in an alternate sectionGoals may be documented in an alternate sectionGoals may be documented in an alternate sectionGoals may be documented in an alternate section INFORMATION SOURCE (unrecogn ized section and content) DATE CREATED AUTHOR 01/26/2022 [facility] DATE CREATED AUTHOR AUTHOR'S ORGANIZ ATION 02/15/2022 [facility] ([place]) DATE CREATED AUTHOR AUTHOR'S ORGANIZ ATION 08/26/2023 [facility] DATE CREATED AUTHOR AUTHOR'S ORGANIZ ATION 10/03/2024 [facility] DATE CREATED AUTHOR AUTHOR'S ORGANIZ ATION 10/17/2024 [facility] DATE CREATED AUTHOR AUTHOR'S ORGANIZ ATION 11/09/2024 [facility] Care Team (unrecognized sect ion and content) Care Team Personnel Name: ROSANNA SCALES DO Member Role: Primary Care Physician Address: Address: [address] [place] [address] [address] [place] [address]- Care Team Related Persons Name: [facility] Care Teams (unrecognized sec tion and content) Team Status: Active Member Role Status Dates Dr. Rosanna Scales DO Family Provider Active Dr. Rosanna Scales DO Primary Care Provider Active Team Status: Inactive Member Role Status Dates Dr. Rosanna Scales DO Primary Care Provider, Referring P rovider Active Dr. Do Frankel MD Attending Provider Active Team Status: Inactive Member Role Status Dates Dr. Rosanna Scales DO Primary Care Provider, Referring P rovider Active Jaqueline Hutchison APPRENTICE ELECTRICIAN, APPRENTICE ELECTRICIAN-C Attending Provider Active Team Status: Inactive Member Role Status Dates Dr. Rosanna Scales DO Primary Care Provider Active Leti Larry CNM Attending Provider, Referring Pr ovider Active Team Status: Inactive Member Role Status Dates Dr. Rosanna Scales DO Primary Care Provider Active Dr. Gay Gan , DO Attending Provider Activ e Team Status: Inactive Member Role Status Dates Dr. Rosanna Scales DO Primary Care Provider Active Dr. Do Frankel MD Attending Provider Active Team Status: Inactive Member Role Status Dates Dr. Rosanna Scales DO Primary Care Provider Active Dr. Do Frankel MD Attending Provider, Referr ing Provider Active Team Status: Inactive Member Role Status Dates Dr. Rosanna Scales DO Primary Care Provider Active Jaqueline Hutchison APPRENTICE ELECTRICIAN, APPRENTICE ELECTRICIAN-C Attending Provider, Referring Provider Active Team Status: Inactive Member Role Status Dates Dr. Rosanna Scales DO Primary Care Provider, Referring P rovider Active Dr. Gay Gan , DO Attending Provider Activ e Team Status: Inactive Member Role Status Dates Dr. Rosanna Scales DO Primary Care Provider, Referring P rovider Active Marcela Espana CNM Attending Provider Active Team Status: Active Member Role Status Dates Dr. Rosanna Scales DO Primary Care Provider Active Dr. Do Frankel MD Attending Pr ovider, Referring Provider, Other Provider Active Team Status: Inactive Member Role Status Dates Dr. Rosanna Scales DO Primary Care Provider Active Marcela Espana CNM Attending Provider, Referring Pro vider Active Team Status: Active Member Role Status Dates Dr. Rosanna Scales , DO Primary Care Provider Active Dr. Do Frankel MD Attending Provider, Referr ing Provider Active Team Status: Active Member Role Status Dates Dr. Rosanna Scales , DO Primary Care Provider Active Dr. Do Frankel MD Attending Provider Active Team Status: Inactive Member Role Status Dates Dr. Rosanna Scales , DO Primary Care Provider, Referring P rovider Active Dr. Justino Mast , DO Attending Provider Active Team Status: Active Member Role Status Dates Dr. Rosanna Scales DO Primary Care Provider Active Dr. Gay Gan , DO Admit Prov ider, Attending Provider, Referring Provider, Other Provider Active Team Status: Active Member Role Status Dates Dr. Rosanna Scales DO Primary Care Provider Active Dr. Gay Gan , DO Admit Prov ider, Referring Provider, Other Provider Active Dr. Do Frankel MD Attending Provider Active Team Status: Inactive Member Role Status Dates Dr. Rosanna Scales DO Primary Care Provider Active Dr. Gay Gan , DO Admit Prov ider, Attending Provider, Referring Provider Active Team Status: Active Member Role Status Dates Dr. Rosanna Scales DO Primary Care Provider Active Dr. Justino Mast , Attending Provid er, Referring Provider, Other Provider Active Team Status: Inactive Member Role Status Dates Dr. Rosanna Scales DO Primary Care Provider Active Dr. Justino Mast , DO Attending Provider, Referring Provider Active Team Status: Inactive Member Role Status Dates Dr. Rosanna Scales DO Primary Care Provider Active Start: June 16, 2024 End: June 16, 2024 Dr. Rosanna Scales DO Referring Provider Active St art: June 16, 2024 End: June 16, 2024 Dr. Do Frankel MD Attending Provider Active Start: June 16, 2024 End: June 16, 2024 Team Status: Inactive Member Role Status Dates Dr. Rosanna Scales DO Primary Care Provider Active Start: July 01, 2024 End: July 01, 2024 Dr. Rosanna Scales DO Referring Provider Active St art: July 01, 2024 End: July 01, 2024 Marcela Espana CNM Attending Provider Active S tart: July 01, 2024 End: July 01, 2024 Team Status: Inactive Member Role Status Dates Dr. Rosanna Scales DO Primary Care Provider Active Start: July 16, 2024 End: July 16, 2024 Dr. Rosanna Scales DO Referring Provider Active St art: July 16, 2024 End: July 16, 2024 Dr. Gay Gan DO Attending Provider Activ e Start: July 16, 2024 End: July 16, 2024 Team Status: Inactive Member Role Status Dates Dr. Rosanna Scales DO Primary Care Provider Active Start: August 10, 2024 End: August 10, 2024 Dr. Rosanna Scales DO Referring Provider Active St art: August 10, 2024 End: August 10, 2024 VALERIA Cai Attending Provider Active Start: August 10, 2024 End: August 10, 2024 Team Status: Inactive Member Role Status Dates Dr. Rosanna Scales DO Primary Care Provider Active Start: August 11, 2024 End: August 11, 2024 Dr. Rosanna Scales DO Referring Provider Active St art: August 11, 2024 End: August 11, 2024 Dr. Gay Gan DO Attending Provider Activ e Start: August 11, 2024 End: August 11, 2024 Team Status: Inactive Member Role Status Dates Dr. Rosanna Scales DO Primary Care Provider Active Start: September 09, 2024 End: September 09, 2024 Dr. Rosanna Scales DO Referring Provider Active St art: September 09, 2024 End: September 09, 2024 Dr. Do Frankel MD Attending Provider Active Start: September 09, 2024 End: September 09, 2024 Team Status: Inactive Member Role Status Dates Dr. Rosanna Scales DO Primary Care Provider Active Start: September 30, 2024 End: September 30, 2024 Dr. Rosanna Scales DO Referring Provider Active St art: September 30, 2024 End: September 30, 2024 Jaqueline Hutchison NP, APPRENTICE ELECTRICIAN-C Attending Provider Active Start: September 30, 2024 End: September 30, 2024 Team Status: Active Member Role Status Dates Dr. Rosanna Scales DO Primary Care Provider Active Start: September 30, 2024 Dr. Gay Gan , DO Attending Provider Activ e Start: September 30, 2024 Dr. Gay Gan DO Referring Provider Activ e Start: September 30, 2024 Team Status: Inactive Member Role Status Dates Dr. Rosanna Scales DO Primary Care Provider Active Start: September 30, 2024 End: September 30, 2024 Dr. Gay Gan DO Attending Provider Activ e Start: September 30, 2024 End: September 30, 2024 Dr. Gay Gan DO Referring Provider Activ e Start: September 30, 2024 End: September 30, 2024 Team Status: Inactive Member Role Status Dates Dr. Rosanna Scales DO Primary Care Provider Active Start: October 13, 2024 End: October 13, 2024 Dr. Rosanna Scales DO Referring Provider Active St art: October 13, 2024 End: October 13, 2024 Jaqueline Hutchison APPRENTICE ELECTRICIAN, APPRENTICE ELECTRICIAN-C Attending Provider Active Start: October 13, 2024 End: October 13, 2024 Team Status: Active Member Role/Relationship Status Dates Dr. Rosanna Scales DO Primary Care Provider Active Team Status: Inactive Member Role/Relationship Status Dates Dr. Rosanna Scales DO Primary Care Provider Active Start: July 01, 2024 End: July 01, 2024 Dr. Rosanna Scales DO Referring Provider Active St art: July 01, 2024 End: July 01, 2024 Marcela Espana CNM Attending Provider Active S tart: July 01, 2024 End: July 01, 2024 Team Status: Inactive Member Role/Relationship Status Dates Dr. Rosanna Scales DO Primary Care Provider Active Start: July 16, 2024 End: July 16, 2024 Dr. Rosanna Scales DO Referring Provider Active St art: July 16, 2024 End: July 16, 2024 Dr. Gay Gan DO Attending Provider Activ e Start: July 16, 2024 End: July 16, 2024 Team Status: Inactive Member Role/Relationship Status Dates Dr. Rosanna Scales DO Primary Care Provider Active Start: August 10, 2024 End: August 10, 2024 Dr. Rosanna Scales DO Referring Provider Active St art: August 10, 2024 End: August 10, 2024 VALERIA Cai Attending Provider Active Start: August 10, 2024 End: August 10, 2024 Team Status: Inactive Member Role/Relationship Status Dates Dr. Rosanna Scales DO Primary Care Provider Active Start: August 11, 2024 End: August 11, 2024 Dr. Rosanna Scales DO Referring Provider Active St art: August 11, 2024 End: August 11, 2024 Dr. Gay Gan DO Attending Provider Activ e Start: August 11, 2024 End: August 11, 2024 Team Status: Inactive Member Role/Relationship Status Dates Dr. Rosanna Scales DO Primary Care Provider Active Start: September 09, 2024 End: September 09, 2024 Dr. Rosanna Scales DO Referring Provider Active St art: September 09, 2024 End: September 09, 2024 Dr. Do Frankel MD Attending Provider Active Start: September 09, 2024 End: September 09, 2024 Team Status: Inactive Member Role/Relationship Status Dates Dr. Rosanna Scales DO Primary Care Provider Active Start: September 30, 2024 End: September 30, 2024 Dr. Rosanna Scales DO Referring Provider Active St art: September 30, 2024 End: September 30, 2024 Jaqueline Hutchisno APPRENTICE ELECTRICIAN, APPRENTICE ELECTRICIAN-C Attending Provider Active Start: September 30, 2024 End: September 30, 2024 Team Status: Inactive Member Role/Relationship Status Dates Dr. Rosanna Scales DO Primary Care Provider Active Start: September 30, 2024 End: September 30, 2024 Dr. Gay Gan DO Attending Provider Activ e Start: September 30, 2024 End: September 30, 2024 Dr. Gay Gan DO Referring Provider Activ e Start: September 30, 2024 End: September 30, 2024 Team Status: Inactive Member Role/Relationship Status Dates Dr. Rosanna Scales DO Primary Care Provider Active Start: October 13, 2024 End: October 13, 2024 Dr. Rosanna Scales DO Referring Provider Active St art: October 13, 2024 End: October 13, 2024 Jaqueline Hutchison APPRENTICE ELECTRICIAN, APPRENTICE ELECTRICIAN-C Attending Provider Active Start: October 13, 2024 End: October 13, 2024 Team Status: Inactive Member Role/Relationship Status Dates Dr. Rosanna Scales DO Primary Care Provider Active Start: October 26, 2024 End: October 26, 2024 Dr. Rosanna Scales DO Referring Provider Active St art: October 26, 2024 End: October 26, 2024 Jaqueline Foster APPRENTICE ELECTRICIAN, APPRENTICE ELECTRICIAN-C Attending Provider Active Start: October 26, 2024 End: October 26, 2024 Team Status: Active Member Role/Relationship Status Dates Dr. Rosanna Scales DO Primary Care Provider Active Start: October 26, 2024 Jaqueline Foster APPRENTICE ELECTRICIAN, APPRENTICE ELECTRICIAN-C Attending Provider Active Start: October 26, 2024 Jaqueline Montgomery APPRENTICE ELECTRICIAN, APPRENTICE ELECTRICIAN-C Referring Provider Active Start: October 26, 2024 Team Status: Inactive Member Role/Relationship Status Dates Dr. Rosanna Scales DO Primary Care Provider Active Start: October 28, 2024 End: October 29, 2024 Jaqueline Montgomery APPRENTICE ELECTRICIAN, APPRENTICE ELECTRICIAN-C Referring Provider Active Start: October 28, 2024 End: October 29, 2024 Jaqueline Foster APPRENTICE ELECTRICIAN, APPRENTICE ELECTRICIAN-C Other Provider Active St art: October 28, 2024 End: October 29, 2024 Dr. Gay Gan DO Admit Provider Active Start: October 28, 2024 End: October 29, 2024 Dr. Gya Gan DO Attending Provider Activ e Start: October 28, 2024 End: October 29, 2024 Team Status: Active Member Role/Relationship Status Dates Dr. Rosanna Scales DO Primary Care Provider Active Start: October 28, 2024 Jaqueline Foster APPRENTICE ELECTRICIAN, APPRENTICE ELECTRICIAN-C Referring Provider Active Start: October 28, 2024 Jaqueline Montgomery APPRENTICE ELECTRICIAN, APPRENTICE ELECTRICIAN-C Other Provider Active St art: October 28, 2024 Dr. Gay Gan DO Admit Provider Active Start: October 28, 2024 Dr. Gay Gan DO Attending Provider Activ e Start: October 28, 2024 Dr. Gay Gan DO Other Provider Active Start: October 28, 2024 Team Status: Active Member Role/Relationship Status Dates Dr. Rosanna Scales DO Primary Care Provider Active Start: October 29, 2024 Jaqueline Foster APPRENTICE ELECTRICIAN, APPRENTICE ELECTRICIAN-C Referring Provider Active Start: October 29, 2024 Jaqueline Montgomery APPRENTICE ELECTRICIAN, APPRENTICE ELECTRICIAN-C Other Provider Active St art: October 29, 2024 Dr. Gay Gan DO Admit Provider Active Start: October 29, 2024 Dr. Gay Vande Velde , DO Attending Provider Activ e Start: October 29, 2024 Dr. Gay Gan DO Other Provider Active Start: October 29, 2024 Team Status: Inactive Member Role/Relationship Status Dates Dr. Rosanna Scales DO Primary Care Provider Active Start: July 16, 2024 End: July 16, 2024 Dr. Rosanna Scales DO Referring Provider Active St art: July 16, 2024 End: July 16, 2024 Dr. Gay Gan DO Attending Provider Activ e Start: July 16, 2024 End: July 16, 2024 Team Status: Inactive Member Role/Relationship Status Dates Dr. Rosanna Scales DO Primary Care Provider Active Start: August 10, 2024 End: August 10, 2024 Dr. Rosanna Scales DO Referring Provider Active St art: August 10, 2024 End: August 10, 2024 VALERIA Cai Attending Provider Active Start: August 10, 2024 End: August 10, 2024 Team Status: Inactive Member Role/Relationship Status Dates Dr. Rosanna Scales DO Primary Care Provider Active Start: August 11, 2024 End: August 11, 2024 Dr. Rosanna Scales DO Referring Provider Active St art: August 11, 2024 End: August 11, 2024 Dr. Gay Gan DO Attending Provider Activ e Start: August 11, 2024 End: August 11, 2024 Team Status: Inactive Member Role/Relationship Status Dates Dr. Rosanna Scales DO Primary Care Provider Active Start: September 09, 2024 End: September 09, 2024 Dr. Rosanna Scales DO Referring Provider Active St art: September 09, 2024 End: September 09, 2024 Dr. Do Frankel MD Attending Provider Active Start: September 09, 2024 End: September 09, 2024 Team Status: Inactive Member Role/Relationship Status Dates Dr. Rosanna Scales DO Primary Care Provider Active Start: September 30, 2024 End: September 30, 2024 Dr. Rosanna Scales DO Referring Provider Active St art: September 30, 2024 End: September 30, 2024 Jaqueline Hutchison APPRENTICE ELECTRICIAN, APPRENTICE ELECTRICIAN-C Attending Provider Active Start: September 30, 2024 End: September 30, 2024 Team Status: Inactive Member Role/Relationship Status Dates Dr. Rosanna Scales DO Primary Care Provider Active Start: September 30, 2024 End: September 30, 2024 Dr. Gay Gan DO Attending Provider Activ e Start: September 30, 2024 End: September 30, 2024 Dr. Gay Gan DO Referring Provider Activ e Start: September 30, 2024 End: September 30, 2024 Team Status: Inactive Member Role/Relationship Status Dates Dr. Rosanna Scales DO Primary Care Provider Active Start: October 13, 2024 End: October 13, 2024 Dr. Rosanna Scales DO Referring Provider Active St art: October 13, 2024 End: October 13, 2024 Jaqueline Hutchison APPRENTICE ELECTRICIAN, APPRENTICE ELECTRICIAN-C Attending Provider Active Start: October 13, 2024 End: October 13, 2024 Team Status: Inactive Member Role/Relationship Status Dates Dr. Rosanna Scales DO Primary Care Provider Active Start: October 26, 2024 End: October 26, 2024 Dr. Rosanna Scales DO Referring Provider Active St art: October 26, 2024 End: October 26, 2024 Jaqueline Abreus APPRENTICE ELECTRICIAN, APPRENTICE ELECTRICIAN-C Attending Provider Active Start: October 26, 2024 End: October 26, 2024 Team Status: Inactive Member Role/Relationship Status Dates Dr. Rosanna Scales DO Primary Care Provider Active Start: October 26, 2024 End: October 26, 2024 Jaqueline Foster APPRENTICE ELECTRICIAN, APPRENTICE ELECTRICIAN-C Attending Provider Active Start: October 26, 2024 End: October 26, 2024 Jaqueline Foster APPRENTICE ELECTRICIAN, APPRENTICE ELECTRICIAN-C Referring Provider Active Start: October 26, 2024 End: October 26, 2024 Team Status: Inactive Member Role/Relationship Status Dates Dr. Rosanna Scales DO Primary Care Provider Active Start: October 28, 2024 End: October 29, 2024 Jaquelineharish Abreus APPRENTICE ELECTRICIAN, APPRENTICE ELECTRICIAN-C Referring Provider Active Start: October 28, 2024 End: October 29, 2024 Jaqueline Foster APPRENTICE ELECTRICIAN, APPRENTICE ELECTRICIAN-C Other Provider Active St art: October 28, 2024 End: October 29, 2024 Dr. Gay Gan DO Admit Provider Active Start: October 28, 2024 End: October 29, 2024 Dr. Gay Gan DO Attending Provider Activ e Start: October 28, 2024 End: October 29, 2024 Team Status: Active Member Role/Relationship Status Dates Dr. Rosanna Scales DO Primary Care Provider Active Start: October 28, 2024 Jaqueline Foster APPRENTICE ELECTRICIAN, APPRENTICE ELECTRICIAN-C Referring Provider Active Start: October 28, 2024 Jaqueline Hutchison APPRENTICE ELECTRICIAN, APPRENTICE ELECTRICIAN-C Other Provider Active St art: October 28, 2024 Dr. Gay Gan DO Admit Provider Active Start: October 28, 2024 Dr. Gay Gan DO Attending Provider Activ e Start: October 28, 2024 Dr. Gay Gan DO Other Provider Active Start: October 28, 2024 Team Status: Active Member Role/Relationship Status Dates Dr. Rosanna Scales DO Primary Care Provider Active Start: October 29, 2024 Jaqueline Hutchison APPRENTICE ELECTRICIAN, APPRENTICE ELECTRICIAN-C Referring Provider Active Start: October 29, 2024 Jaqueline Hutchison APPRENTICE ELECTRICIAN, APPRENTICE ELECTRICIAN-C Other Provider Active St art: October 29, 2024 Dr. Gay Gan DO Admit Provider Active Start: October 29, 2024 Dr. Gay Gan DO Attending Provider Activ e Start: October 29, 2024 Dr. Gay Gan DO Other Provider Active Start: October 29, 2024 Team Status: Inactive Member Role/Relationship Status Dates Dr. Rosanna Scales DO Primary Care Provider Active Start: November 04, 2024 End: November 04, 2024 Dr. Rosanna Scales DO Referring Provider Active St art: November 04, 2024 End: November 04, 2024 Park Robles NP-C Attending Provider Active Start: November 04, 2024 End: November 04, 2024 Team Status: Inactive Member Role/Relationship Status Dates Dr. Rosanna Scales DO Primary Care Provider Active Start: November 04, 2024 End: November 04, 2024 Dr. Rosanna Scales DO Referring Provider Active St art: November 04, 2024 End: November 04, 2024 Dr. Gay Gan DO Attending Provider Activ e Start: November 04, 2024 End: November 04, 2024 Team Status: Inactive Member Role/Relationship Status Dates Dr. Rosanna Scales DO Primary Care Provider Active Start: November 04, 2024 End: November 04, 2024 Dr. Gay Gan DO Attending Provider Activ e Start: November 04, 2024 End: November 04, 2024 Dr. Gay Gan DO Referring Provider Activ e Start: November 04, 2024 End: November 04, 2024 Team Status: Inactive Member Role/Relationship Status Dates Dr. Rosanna Scales DO Primary Care Provider Active Start: November 10, 2024 End: November 10, 2024 Dr. Rosanna Scales DO Referring Provider Active St art: November 10, 2024 End: November 10, 2024 Dr. Gay Gan DO Attending Provider Activ e Start: November 10, 2024 End: November 10, 2024 Team Status: Active Member Role/Relationship Status Dates Dr. Rosanna Scales DO Primary Care Provider Active Start: November 10, 2024 Dr. Gay Gan DO Attending Provider Activ e Start: November 10, 2024 FOR RECORDS PERTAINING TO PATIENTS WHO ARE OR HAVE BEEN ENROLLED IN A CHEMICAL DEPENDENCY/SUBSTANCEABUSE PROGRAM, SOME INFORMATION MAY BE OMITTED. This clinical summary was aggregated from multiple sources. Caution should be exercised in using it in the provision of clinical care. This summary normalizes information from multiple sources, and as a consequence, information in this document may materially change the coding, format and clinical context of patient data. In addition, data may be omitted in some cases. CLINICAL DECISIONS SHOULD BE BASED ON THE PRIMARY CLINICAL RECORDS. [facility]. provides no warranty or guarantee of the accuracy or completeness of information in this document.
== END | disposition home or self-care (01) ==
LOC: BWCLAB 14:36
PROVIDERS: PCP Internal Medicine; Visit Provider Obstetrics & Gynecology
DX: I10 Essential (primary) hypertension (principal)
CPT/HCPCS: 36415; 80053; 85027

== ENCOUNTER 2025-01-31 08:51 | Day surgery (SDC) | payer OTHER, SELFPAY ==
--- NOTE | 2025-01-27 10:18 | PAT.ANESEVAL ---
Pre-Assessment Diagnosis/Proposed Procedure Planned Operative Procedure(s): EGD Anesthesia History Anesthesia History - design assembler: Anesthesia History - design assembler Hx Hospitalization Yes: CHILDBIRTH 01/26/25 11:20 Any Problems With Anesthesia Yes: PONV 01/26/25 11:20 Cholinesterase deficiency No 01/26/25 11:20 You/Your Family Experience No 01/26/25 11:20 fever (hyperthermia) with Relationship Recent Exposure to Contagious Disease Does patient have nerve No 01/26/25 11:20 stimulator Patient instructed to have device shut off --Does patient have Pacemaker or ICD? When Was Last Pacemaker Check QUESTION #4 FULL TEXT: You/Your Family Experience fever (hyperthermia) with Anesthesia Last Oral Intake Last Oral intake: Last Oral Intake NPO since Meds taken in AM with sips of water? Meds patient instructed to take am of surgery PONV PONV - design assembler: PONV - design assembler Female Yes 01/26/25 11:20 HX of Motion Sickness Yes 01/26/25 11:20 HX of N/V After Surgery Yes 01/26/25 11:20 Non-Smoker Yes 01/26/25 11:20 Duration of Surgery greater No 01/26/25 11:20 than 60 minutes Number of Risk Factors 4 01/26/25 11:20 PONV Score Severe Risk 01/26/25 11:20 Height & Weight Height & Weight: Anesthesia: Height & Weight Height 5 ft 4 in 01/26/25 14:29 Respiratory Assessment Respiratory Assessment - design assembler: Respiratory Tract Infection Hx - design assembler Hx Respiratory Tract Infection No 01/26/25 11:20 STOP Sleep Apnea STOP Sleep Apnea - design assembler: STOP Sleep Apnea - design assembler Hx Hypertension Yes: PER PT UNCONTROLLED - 01/26/25 11:[address] CARPENTER TODAY Hx Sleep Apnea No 01/26/25 11:20 CPAP BIPAP Do you snore loudly (louder No 01/26/25 11:20 than talking or can be heard Do you often feel tired/ No 01/26/25 11:20 fatigued/ sleepy during daytime? Has anyone observed you stop No 01/26/25 11:20 breathing during sleep? STOP Results Negative 01/26/25 11:20 QUESTION #5 FULL TEXT : Do you snore loudly (louder than talking or can be heard through closed doors)? 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 Specify any problems Hx of Preganancy in last 3 Yes 01/26/25 11:20 Months Nurse Filling Out Transfusion MGRIFFITH 01/26/25 11:20 & Questions: Date: 01/26/25 01/26/25 11:20 Time: 11:24 01/26/25 11:20 Patient unable to answer at this time (ie. confused, unrespo /Reproduction History /Reproductive History - design assembler: /Reproductive Hx- design assembler Hx Now No 01/26/25 11:20 Gestational Age (in weeks): EDC: Hx Hx Para Hx Section SAB No 01/26/25 11:20 PFS Medical History (Updated 01/26/25 @ 15:[address] Russ Carpenter MD) Eosinophilic esophagitis Wears contact lenses Wears glasses Restless legs PONV (postoperative nausea and vomiting) Non-smoker History of echocardiogram History of Holter monitoring Cardiology follow-up encounter Vitamin D deficiency Family history of ischemic heart disease Tachycardia Dysthymic disorder Contraceptive management depression Hypertension Anemia Anxiety Low iron Heartburn Depression with anxiety Gestational hypertension Obesity affecting Supervision of high risk , antepartum Asthma Abnormality of hormone Home Medications ?Medication ?Instructions ?Recorded ?Last Taken ?Type albuterol sulfate 90 mcg/actuation 2 puff inhalation 4X/DAY PRN asthma 10/28/24 Unknown History aerosol inhaler citalopram 40 mg tablet 40 mg PO QDAY 11/10/24 Unknown History labetalol 200 mg tablet 100 mg PO BID 12/23/24 Unknown History pantoprazole 20 mg tablet,delayed 40 mg PO QDAY 12/23/24 Unknown History release ferrous sulfate 325 mg (65 mg 325 mg PO QDAY PRN 01/26/25 Unknown History iron) tablet Allergy/AdvReac Type Severity Reaction Status Date / Time No Known Allergies Allergy Verified 01/26/25 14:34 Family History Father Hypertension Mother Arrhythmia Depression Grandmother Ischemic heart disease Surgical History History of esophagogastroduodenoscopy (EGD) Status post section Social History adopted: No household members: spouse and children housing: house number of children: 2 current occupational status: employed current occupation: [employer] current occupational exposures/hazards: No pets and animals: Yes (2) pets and animals: dog(s) history of recent travel: Yes (- February) out of state: Yes out of country: No sexually active: Yes Smoking Status: Never smoker alcohol intake: current details: social not while substance use type: does not use well-balanced diet: daily or most days caffeine: Yes Type: carbonated beverages Number of servings: 1 eating out: 4 or more times/week during the past year weight has: decreased > 10 lbs what type of physical activity do you participate in: none deloris/oriental orthodox: Mu-Ism seatbelt use: always do you feel safe at home: Yes 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 Sinus tachycardia 109 bpm. Nonspecific T wave abnormality. Echo (EF%) pertinent findings: 06/06/2014. Normal size function EF 60%. Consult pertinent findings: Hypertension. Chronic. History of gestational hypertension both pregnancies. Plan is to check renal ultrasound and echo cardiogram. And watch 24-hour ambulatory blood pressure monitoring. Follow-up in a few months to reassess. Appears that echo was completed 01/26/2025. By Dr. Carpenter but official reading is not in the computer yet. Recommendation Anesthesia Recommendation Anesthesia recommendation: OPTIMIZED for anesthesia
--- NOTE | 2025-01-31 09:02 | PCM.PRE.AN2 ---
ASA Classification* ASA Classification ASA Classification: 2 Assessment & Plan Anesthesia* Anesthesia Assessment Anesthesia Assessment: Discussed sedation and/or anesthesia options, risks, benefits, and alternatives with patient/parents/legal guardian/POA. Questions invited. The patient/parents/legal guardian/POA seems to understand and agrees to proceed with anesthesia plan. Reviewed the physical assessment, medical history, allergy history and patient home medications list prior to surgery/procedure/anesthetic and documented any changes. Performed airway and anesthesia risk assessments. Anesthesia Type Anesthesia Type: MAC Anesthesia Focused Assessment* Airway Assessment Mouth opens: >3 cm Mallampati Score: II Labs Anesthesia Preop lab: CBC WBC, (4.4-11.0) 10.6 K/mm3 11/10/24, 14:36 RBC, (4.2-5.4) 3.91 M/mm3 L 11/10/24, 14:36 Hgb, (12.0-15.0) 9.4 g/dL L 11/10/24, 14:36 Hct, (37-47) 31.3 % L 11/10/24, 14:36 Plt Count, (150-450) 459 K/mm3 H 11/10/24, 14:36 CHEMISTRY Potassium, (3.3-5.1) 4.4 mmol/L 11/10/24, 14:36 Sodium, (133-145) 139 mmol/L 11/10/24, 14:36 Magnesium, (1.8-2.4) 1.3 mg/dL L 05/27/14, 09:47 BUN, (4-19) 7 mg/dL 11/10/24, 14:36 Creatinine, (0.70-1.20) 0.77 mg/dL 11/10/24, 14:36 Glucose, (70-99) 91 mg/dL 11/10/24, 14:36 TSH, (0.358-3.74) 0.91 uIU/mL 09/09/23, 07:49 COAG PT, (11.7-14.9) 12.5 SECONDS 10/28/24, 17:20 HCG, Quant, (1-3) 1968 mIU/mL H 01/30/22, 07:05 Urine Test Negative Negative 09/14/23, 05:45 Pre-Assessment Diagnosis/Proposed Procedure Planned Operative Procedure(s): EGD Anesthesia History Anesthesia History - screen cutter and trimmer: Anesthesia History - screen cutter and trimmer Hx Hospitalization Yes: CHILDBIRTH 01/26/25 11:20 Any Problems With Anesthesia Yes: PONV 01/26/25 11:20 Cholinesterase deficiency No 01/26/25 11:20 You/Your Family Experience No 01/26/25 11:20 fever (hyperthermia) with Relationship Recent Exposure to Contagious Disease Does patient have nerve No 01/26/25 11:20 stimulator Patient instructed to have device shut off --Does patient have Pacemaker or ICD? When Was Last Pacemaker Check QUESTION #4 FULL TEXT: You/Your Family Experience fever (hyperthermia) with Anesthesia Last Oral Intake Last Oral intake: Last Oral Intake NPO since Meds taken in AM with sips of water? Meds patient instructed to take am of surgery PONV PONV - screen cutter and trimmer: PONV - screen cutter and trimmer Female Yes 01/26/25 11:20 HX of Motion Sickness Yes 01/26/25 11:20 HX of N/V After Surgery Yes 01/26/25 11:20 Non-Smoker Yes 01/26/25 11:20 Duration of Surgery greater No 01/26/25 11:20 than 60 minutes Number of Risk Factors 4 01/26/25 11:20 PONV Score Severe Risk 01/26/25 11:20 Height & Weight Height & Weight: Anesthesia: Height & Weight Height 5 ft 4 in 01/26/25 14:29 Respiratory Assessment Respiratory Assessment - screen cutter and trimmer: Respiratory Tract Infection Hx - screen cutter and trimmer Hx Respiratory Tract Infection No 01/26/25 11:20 STOP Sleep Apnea STOP Sleep Apnea - screen cutter and trimmer: STOP Sleep Apnea - screen cutter and trimmer Hx Hypertension Yes: PER PT UNCONTROLLED - 01/26/25 11:[address] CARPENTER TODAY Hx Sleep Apnea No 01/26/25 11:20 CPAP BIPAP Do you snore loudly (louder No 01/26/25 11:20 than talking or can be heard Do you often feel tired/ No 01/26/25 11:20 fatigued/ sleepy during daytime? Has anyone observed you stop No 01/26/25 11:20 breathing during sleep? STOP Results Negative 01/26/25 11:20 QUESTION #5 FULL TEXT : Do you snore loudly (louder than talking or can be heard through closed doors)? 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 Specify any problems Hx of Preganancy in last 3 Yes 01/26/25 11:20 Months Nurse Filling Out Transfusion MGRIFFITH 01/26/25 11:20 & Questions: Date: 01/26/25 01/26/25 11:20 Time: 11:24 01/26/25 11:20 Patient unable to answer at this time (ie. confused, unrespo /Reproduction History /Reproductive History - screen cutter and trimmer: /Reproductive Hx- screen cutter and trimmer Hx Now No 01/26/25 11:20 Gestational Age (in weeks): EDC: Hx Hx Para Hx Section SAB No 01/26/25 11:20 Active Medications Active Medications: Current Medications Generic Name Dose Route Start Last Admin Trade Name Freq PRN Reason Stop Dose Admin Lactated Ringer's 1,000 mls @ 15 mls/hr 01/31/25 09:00 IV .Q48H JAMAR PFSH Medical History Eosinophilic esophagitis Wears contact lenses Wears glasses Restless legs PONV (postoperative nausea and vomiting) Non-smoker History of echocardiogram History of Holter monitoring Cardiology follow-up encounter Vitamin D deficiency Family history of ischemic heart disease Tachycardia Dysthymic disorder Contraceptive management depression Hypertension Anemia Anxiety Low iron Heartburn Depression with anxiety Gestational hypertension Obesity affecting Supervision of high risk , antepartum Asthma Abnormality of hormone Home Medications ?Medication ?Instructions ?Recorded ?Last Taken ?Type albuterol sulfate 90 mcg/actuation 2 puff inhalation 4X/DAY PRN asthma 10/28/24 Unknown History aerosol inhaler citalopram 40 mg tablet 40 mg PO QDAY 11/10/24 Unknown History labetalol 200 mg tablet 100 mg PO BID 12/23/24 Unknown History pantoprazole 20 mg tablet,delayed 40 mg PO QDAY 12/23/24 Unknown History release ferrous sulfate 325 mg (65 mg 325 mg PO QDAY PRN 01/26/25 Unknown History iron) tablet Allergy/AdvReac Type Severity Reaction Status Date / Time No Known Allergies Allergy Verified 01/26/25 14:34 Family History Father Hypertension Mother Arrhythmia Depression Grandmother Ischemic heart disease Surgical History History of esophagogastroduodenoscopy (EGD) Status post section Social History adopted: No household members: spouse and children housing: house number of children: 2 current occupational status: employed current occupation: [employer] current occupational exposures/hazards: No pets and animals: Yes (2) pets and animals: dog(s) history of recent travel: Yes (- February) out of state: Yes out of country: No sexually active: Yes Smoking Status: Never smoker alcohol intake: current details: social not while substance use type: does not use well-balanced diet: daily or most days caffeine: Yes Type: carbonated beverages Number of servings: 1 eating out: 4 or more times/week during the past year weight has: decreased > 10 lbs what type of physical activity do you participate in: none deloris/yarsanism: Baptism seatbelt use: always do you feel safe at home: Yes 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
[2025-01-31 09:15] LABS: Internal QC Validated? YES +Cl - CLEAR BKGD; Pregnancy, Urine Negative Negative
[2025-01-31 09:16] LABS: Record Kit Lot#,Urine Preg 0000980607
[2025-01-31 09:22] VITALS: BP 142/92; PULSE 96; RESP 16; TEMP 36.5; O2SAT 100; BMI 18.3
[2025-01-31] MEDS: Lactated Ringers 1,000 ML 15 ML IV (09:25)
--- NOTE | 2025-01-31 09:34 | PCM.HP.STD ---
HPI - General General Date of Admission: 01/31/25 Date of Service: 01/31/25 Chief Complaint: dysphagia HPI Narrative SHERRIE SHAH is a 29 F who presents [ SHERRIE SHAH is a 29 F who presents to the office today for follow-up. BGI established in 2022 with dysphagia. Biochemical celiac, GAME, ROD comp without pertinent abnormality. pANCA H1:20 RAST low/equivocal corn, soybean; low peanut; high whole egg, wheat; very high cow milk. Environmental allergies include weeks, trees, grass, cat and dog. EGD 8.. mucosal changes concerning for EOE, >35 eosinophils/field; intrinsic stenosis, traversed; small hiatal hernia; duodenitis metaplasia + Last OV 10..24 Worsening swallowing issues with regurgitation. Feels she may need dilation again. Avoiding food allergens. Continues with PPI. Constipation for years. Recommended EGD with dilation, continue PPI and sample Linzess. OV 4..25; Pt has been having worsening issues with swallowing. She discontinued her pantoprazole when she found out she was . She is currently 21 weeks . She is having swallowing issues when she eats anything with diary or carbs. She is experiencing more nausea, vomiting and heartburn related to her . OV 9..25 patient gave to her child 8 weeks or early due to uterine rupture. Patient's baby is currently 2 months old. She is having continued issues with her swallowing despite high-dose PPI twice a day. She mostly has issues with the dairy and bread. She has seen an curtain framer in the past and was just told to avoid foods to trigger symptoms. She has had to go regurgitate her food 3 times since being here last. [facility] Medical History Eosinophilic esophagitis Wears contact lenses Wears glasses Restless legs PONV (postoperative nausea and vomiting) Non-smoker History of echocardiogram History of Holter monitoring Cardiology follow-up encounter Vitamin D deficiency Family history of ischemic heart disease Tachycardia Dysthymic disorder Contraceptive management depression Hypertension Anemia Anxiety Low iron Heartburn Depression with anxiety Gestational hypertension Obesity affecting Supervision of high risk , antepartum Asthma Abnormality of hormone Home Medications ?Medication ?Instructions ?Recorded ?Last Taken ?Type albuterol sulfate 90 mcg/actuation 2 puff inhalation 4X/DAY PRN asthma 07/10/25 Unknown History aerosol inhaler citalopram 40 mg tablet 40 mg PO QDAY 11/10/24 01/30/25 History labetalol 200 mg tablet 100 mg PO BID 12/23/24 01/30/25 History pantoprazole 20 mg tablet,delayed 40 mg PO QDAY 12/23/24 01/30/25 History release ferrous sulfate 325 mg (65 mg 325 mg PO QDAY PRN as needed 01/26/25 Unknown History iron) tablet Allergy/AdvReac Type Severity Reaction Status Date / Time No Known Allergies Allergy Verified 01/26/25 14:34 Family History Father Hypertension Mother Arrhythmia Depression Grandmother Ischemic heart disease Surgical History History of esophagogastroduodenoscopy (EGD) Status post section Social History adopted: No household members: spouse and children housing: house number of children: 2 current occupational status: employed current occupation: [employer] current occupational exposures/hazards: No pets and animals: Yes (2) pets and animals: dog(s) history of recent travel: Yes (- February) out of state: Yes out of country: No sexually active: Yes Smoking Status: Never smoker alcohol intake: current details: social not while substance use type: does not use well-balanced diet: daily or most days caffeine: Yes Type: carbonated beverages Number of servings: 1 eating out: 4 or more times/week during the past year weight has: decreased > 10 lbs what type of physical activity do you participate in: none deloris/holiness: Religious seatbelt use: always do you feel safe at home: Yes 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 Constitutional Constitutional: Denies fatigue, fever(s), poor appetite, weight gain or weight loss Gastrointestinal Gastrointestinal: Denies belching, bloating, change in bowel habits, change in stool character, chewing difficulty, coffee ground emesis, constipation, cramping, diarrhea, dyspepsia, dysphagia, early satiety, excessive flatus, fecal incontinence, heartburn, hematemesis, hematochezia, hemorrhoids, loose stools, melena, nausea, odynophagia, rectal bleeding, tenesmus, vomiting or weight changes Vital Signs Vital Signs Vital Signs: 01/31/25 09:20 01/31/25 09:22 Temperature 97.7 F L Temperature Source Temporal Pulse Rate 96 Respiratory Rate 16 Respiratory Pattern Normal Blood Pressure 142/92 H Blood Pressure Mean 108 Blood Pressure Source Monitor Blood Pressure Position Semi-Fowlers Blood Pressure Location Right Arm Pulse Ox 100 Oxygen Delivery Method Room Air Weight Weight: 107 lb Body Mass Index (BMI) 18.3 Physical Exam Const alert, oriented x3, no apparent distress and healthy appearing General Appearance: cooperative GI normal to inspection, nondistended, normoactive bowel sounds, soft to palpation, non-tender and non-distended Percussion: normal to percussion Rectal Exam: deferred Results Lab / Micro Data Labs: Laboratory Results - last 24 hr 01/31/25 09:07: Urine Test Negative Assessment & Plan Assessment/Plan (1) Eosinophilic esophagitis: PLAN: Assessment and Plan Assessment and Plan (1) Eosinophilic esophagitis: Status: Resolved Plan: Sherrie is a 29-year-old female patient here today for evaluation of dysphagia related to EOE. Patient's last EGD was in 2022 which showed 35 eosinophils per high-power field in the esophagus. She is currently taking pantoprazole 40 mg twice a day. She continues to have dysphagia mostly to dairy and bread/carbs. She does her best to avoid these foods however she finds it difficult. Will repeat EGD and then consider Dupixent pending results. - Continue PPI - Avoid dairy and wheat - EGD - Consider Dupixent (2) Difficulty swallowing: Status: Inactive ]
--- NOTE | 2025-01-31 09:45 | EGD_PTH ---
PATIENT: SHERRIE SHAH LOC: EN U#:[id number] AGE/SX: 29/F ROOM: RE01/31/[address]: Dr. Justino Mast DO : 1995 BED: DIS: 01/31/2025 SPEC #: [id number] RECD: 01/31/25 10:11 STATUS: ELOY RENoemy #: [id number] JULIOCESAR: 01/31/25 09:[address]: Justino Mast DEPT: SURGICAL PATHOLOGY RECD BY: Milind Mills ENTERED: 01/31/25 11:23 SP TYPE: EGD BIOPSY OT DR: Dr. Suzy Jackson DO Tissues: A - Esophagus, NOS Procedures: Surgery Specimen Level IV HEADER OPERATION: EGD with biopsy and dilation PRE-OP DIAGNOSIS: Eosinophilic esophagitis TISSUE SUBMITTED: A- Random esophagus biopsy MICROSCOPIC DIAGNOSIS A. Esophagus, random, biopsy: * Squamous mucosa with reactive changes (marked basal zone hyperplasia, hyperparakeratosis/dyskeratosis, edema, eosinophilic abscess). * > 60 eosinophils per high power field. MICROSCOPIC DESCRIPTION Slides are reviewed. GROSS DESCRIPTION A. Received in fixative is one container labeled with the patient's name and designated Random esophagus biopsy. The specimen consists of multiple irregular fragments of rios tissue that in aggregate measure 1.4 x 0.8 x 0.1 cm. The specimen is totally submitted in one cassette. [place] 01/31/2025 CPT:08307
--- NOTE | 2025-01-31 10:03 | OP.PROVAT_ITS ---
01/31/2025 Suzy Jackson Re : Upper GI endoscopy procedure for Cristela Jackson This procedure was performed on Friday, January 31, 2025. My impressions and recommendations are as follows: Impressions : - Esophageal mucosal changes secondary to eosinophilic esophagitis. - Abnormal esophageal motility. Dilated. - No gross lesions in the entire stomach. - No gross lesions in the entire examined duodenum. - Biopsies were taken with a cold forceps for evaluation of eosinophilic esophagitis. Recommendations : - Discharge patient to home. - Resume previous diet. - Continue present medications. - Await pathology results. My findings are described in the full procedure note, which is enclosed. If I can be of further assistance, please feel free to contact me at . Sincerely, Justino Mast, 01/31/2025 10:02:54 AM This report has been signed electronically.
--- NOTE | 2025-01-31 10:03 | OP.EGD_ITS ---
Patient Name: Cristela Paul Procedure Date: 01/31/2025 9:45 AM Date of : 1995 Age: 29 Procedure: Upper GI endoscopy Indications: Dysphagia Providers: Justino Mast DO Referring MD: Suzy Jackson Medicines: Monitored Anesthesia Care Patient Profile: This is a 29 year old female. Refer to note in patient chart for documentation of history and physical. Patient has symptoms of dysphagia with solids. Her most recent EGD for dilation. Complications: No immediate complications. Procedure: Pre-Anesthesia Assessment: - Prior to the procedure, a History and Physical was performed, and patient medications and allergies were reviewed. The patient is competent. The risks and benefits of the procedure and the sedation options and risks were discussed with the patient. All questions were answered and informed consent was obtained. Patient identification and proposed procedure were verified by the physician in the pre-procedure area. Mental Status Examination: alert and oriented. Airway Examination: normal oropharyngeal airway and neck mobility. Respiratory Examination: clear to auscultation. CV Examination: normal. Prophylactic Antibiotics: The patient does not require prophylactic antibiotics. Prior Anticoagulants: The patient has taken no anticoagulant or antiplatelet agents except for NSAID medication. ASA Grade Assessment: II - A patient with mild systemic disease. After reviewing the risks and benefits, the patient was deemed in satisfactory condition to undergo the procedure. The anesthesia plan was to use monitored anesthesia care (MAC). Immediately prior to administration of medications, the patient was re-assessed for adequacy to receive sedatives. The heart rate, respiratory rate, oxygen saturations, blood pressure, adequacy of pulmonary ventilation, and response to care were monitored throughout the procedure. The physical status of the patient was re-assessed after the procedure. After obtaining informed consent, the endoscope was passed under direct vision. Throughout the procedure, the patient's blood pressure, pulse, and oxygen saturations were monitored continuously. The gastroscope was introduced through the mouth, and advanced to the second part of duodenum. The upper GI endoscopy was accomplished without difficulty. The patient tolerated the procedure well. Scope In: 9:52:38 AM Scope Out: 9:58:19 AM Total Procedure Duration Time 0 hours 5 minutes 41 seconds Findings: Mucosal changes including ringed esophagus were found in the entire esophagus. Biopsies were obtained from the proximal and distal esophagus with cold forceps for histology of suspected eosinophilic esophagitis. Verification of patient identification for the specimen was done. Estimated blood loss was minimal. Abnormal motility was noted in the middle third of the esophagus and in the lower third of the esophagus. The cricopharyngeus was abnormal. There are extra peristaltic waves in the esophageal body. The distal esophagus/lower esophageal sphincter is spastic, but gives up passage to the endoscope. Tertiary peristaltic waves are noted. A guidewire was placed and the scope was withdrawn. Dilation was performed with a Savary dilator with no resistance at 60 Fr. The dilation site was examined and showed moderate improvement in luminal narrowing. Estimated blood loss was minimal. No gross lesions were noted in the entire examined stomach. No gross lesions were noted in the entire examined duodenum. Impression: - Esophageal mucosal changes secondary to eosinophilic esophagitis. - Abnormal esophageal motility. Dilated. - No gross lesions in the entire stomach. - No gross lesions in the entire examined duodenum. - Biopsies were taken with a cold forceps for evaluation of eosinophilic esophagitis. Recommendation: - Discharge patient to home. - Resume previous diet. - Continue present medications. - Await pathology results. Procedure Code(s): --- Professional --- 57730, Esophagogastroduodenoscopy, flexible, transoral; with insertion of guide wire followed by passage of dilator(s) through esophagus over guide wire 40871, 59,51, Esophagogastroduodenoscopy, flexible, transoral; with biopsy, single or multiple CPT copyright 2021 [employer]. All rights reserved. The codes documented in this report are preliminary and upon enamel machine operator review may be revised to meet current compliance requirements. Justino Mast DO 01/31/2025 10:02:54 AM This report has been signed electronically. Number of Addenda: 0 Note Initiated On: 01/31/2025 9:45 AM
[2025-01-31 10:05] VITALS: BP 117/65; BP 142/92; PULSE 81; RESP 16; TEMP 36.6; O2SAT 93
[2025-01-31 10:10] VITALS: BP 123/71; BP 142/92; PULSE 87; RESP 16; O2SAT 97
--- NOTE | 2025-01-31 10:11 | PCM.POST.ANE ---
Anesthesia: Postop Eval I Current Vital Signs Temperature: 98.7 F Pulse Rate: 87 Blood Pressure: 117/65 Respiratory Rate: 16 Pulse Ox: 93 Oxygen Delivery Method: Room Air Assessment Airway patent: Yes Spontaneous unlabored respirations: Yes Mental status: Asleep nausea: No Vomiting: No Anesthesia Complication: No Fluid Hydration Crystalloid volume administer (ml): 400 Total IV fluid infused: 400 Progress Note Anesthesia document: Postop Eval 1 completed: Yes
[2025-01-31 10:12] VITALS: BP 117/65; PULSE 87; RESP 16; TEMP 37.1; O2SAT 93
[2025-01-31 10:15] VITALS: BP 133/80; BP 142/92; PULSE 86; RESP 16; TEMP 36.4; O2SAT 98
--- NOTE | 2025-01-31 10:15 | PCM.POSTANE2 ---
Anesthesia Postop Eval I Sum Postop Eval Completion status Anesthesia document: Postop Eval 1 completed: Yes Anesthesia Postop Eval I Summary Anesthesia Postop Eval I Summary: Anesthesia Postop Eval I: Assessment Summary Airway patent Yes 01/31/25 10:12 [email or web address] Spontaneous unlabored Yes 01/31/25 10:12 [email or web address] respirations Mental status Asleep 01/31/25 10:12 [email or web address] nausea No 01/31/25 10:12 [email or web address] Vomiting No 01/31/25 10:12 [email or web address] Anesthesia Postop Eval I: Fluid Summary Crystalloid volume administer 400 01/31/25 10:12 [email or web address] (ml) Colloids volume administered ( ml) Blood Product volume administered (ml) Total IV fluid infused 400 01/31/25 10:12 [email or web address] Anesthesia Postop Eval I: Summary Notes Anesthesia Complication No 01/31/25 10:12 [email or web address] Anesthesia Complication Comment: Post-operative progress note Anesthesia: Postop Eval II Evaluation Mental status: Awake Pain Level: 0 nausea: No Vomiting: No
[2025-01-31 10:33] VITALS: BP 142/92
== END 2025-01-31 10:37 | disposition home or self-care (01) ==
LOC: EN 08:54 → AC 08:55
PROVIDERS: Anesthesiology; PCP Internal Medicine; Referring Provider Internal Medicine; Visit Provider Internal Medicine Gastroenterology
PROC: 0DJ08ZZ Inspection of Upper Intestinal Tract, Via Natural or Artificial Opening Endoscopic (ICD-10-PCS; CPT 43235; principal; 2025-01-31 09:40)
DX: K20.0 Eosinophilic esophagitis (principal); I10 Essential (primary) hypertension; J45.909 Unspecified asthma, uncomplicated; Z79.899 Other long term (current) drug therapy; K30 Functional dyspepsia
CPT/HCPCS: 43248; 43239; 81025; 88305; C1769; J2405

== ENCOUNTER → 2025-02-15 | Outpatient (CLI) | payer OTHER, SELFPAY | END | disposition home or self-care (01) | LOC: CVS 13:21 | PROVIDERS: PCP Internal Medicine; Referring Provider Internal Medicine Cardiovascular Disease; Visit Provider Internal Medicine Cardiovascular Disease | DX: I10 Essential (primary) hypertension (principal) | CPT/HCPCS: 93788 ==

== ENCOUNTER → 2025-03-01 | Outpatient (CLI) | payer OTHER, SELFPAY ==
[2025-03-01 08:52] LABS: Mucous, Urine 0 SEEN /hpf (<or=2+); Red Blood Cells-Urine 0 SEEN /hpf (0-5)
[2025-03-01 10:07] LABS: Hematocrit 34.9 % (37-47); Hemoglobin 10.3 g/dL (12.0-15.0); Immature Granulocytes Count 0.020 X10^3/uL (0.0-0.0); Mean Corp Hgb Conc 29.5 g/dL (32-36); Mean Corpuscular Volume 71.2 fL (81-99); Mean Platelet Vol. 11.7 fl (6.2-12.0); NRBC Flagged by Analyzer 0 % (0-5); Platelet Count 287 K/mm3 (150-450); RBC Distribution Width CV 17.0 % (11.6-14.6); RBC Distribution Width SD 43.0 fl (35.1-43.9); Red Blood Count 4.90 M/mm3 (4.2-5.4); White Blood Count 7.4 K/mm3 (4.4-11.0)
[2025-03-01 10:10] LABS: Color, Urine Yellow (Yellow); Glucose, Dipstick Normal (Normal); Ketone-Dipstick Negative (Negative); Leukocyte Esterase-Dipstick 100 /ul (Negative); Nitrite-Dipstick Negative (Negative); Occult Blood-Urine 10 /ul (Negative); Protein-Dipstick 30 mg/dl (Negative); Specific Gravity, Urine 1.020 (1.002-1.030); Urine Bilirubin Dipstick Negative (Negative)
[2025-03-01 10:16] LABS: Squamous Epithelial Cells - UA 10-25 SEEN /hpf (5-10)
[2025-03-01 10:30] LABS: Creatinine, Urine (random) 209.00 mg/dL (28.00-217.00); Microalbumin,Random Urine 28.7 mg/L (<20 mg/L)
[2025-03-01 10:37] LABS: FOLATES,SERUM (FOLIC ACID) 12.60 ng/mL (4.60-34.80)
[2025-03-01 10:45] LABS: AST(SGOT) 13 U/L (<=31); Alanine Aminotransfer ALT/SGPT 10 U/L (<=34); Albumin, Serum 4.3 g/dL (3.5-5.0); Alkaline Phosphatase 109 U/L (35-104); Anion Gap 12 (5-15); BUN 10 mg/dL (4-19); BUN/Creat Ratio 11.7 RATIO (10-20); Calcium,Total 9.1 mg/dL (7.6-11.0); Carbon Dioxide 20.9 mmol/L (21.0-32.0); Chloride 104 mmol/L (98-108); Cholesterol 188 mg/dL (<=200); Ferritin 9 ng/mL (22-378); Globulin 2.9 g/dL (2.2-4.2); Glucose 93 mg/dL (70-99); Low Density Lipoprotein Calc. 112 mg/dL; Potassium 4.1 mmol/L (3.3-5.1); Triglycerides 97 mg/dL; Very Low Density Lipoprotein 19 mg/dL (5-40); Vitamin B12 602 pg/mL (180-914); Vitamin D,25 Hydroxy 19.6 ng/mL (30-100); cholesterol:hdl ratio screen 3.20
[2025-03-01 11:07] LABS: Iron 40 ug/dL (50-170)
== END | disposition home or self-care (01) ==
LOC: CIMLAB 08:47
PROVIDERS: Internal Medicine Cardiovascular Disease; PCP Internal Medicine; Referring Provider Internal Medicine; Visit Provider Internal Medicine
DX: Z00.00 Encounter for general adult medical examination without abnormal findings (principal); I10 Essential (primary) hypertension; D64.9 Anemia, unspecified; E55.9 Vitamin D deficiency, unspecified; R53.83 Other fatigue
CPT/HCPCS: 36415; 80053; 80061; 81001; 82043; 82088; 82306; 82384; 82570; 82607; 82728; 82746; 83540; 84244; 84443; 85025